=== PATIENT | female | born 1995 | race Caucasian/White ===

== ENCOUNTER 2023-08-09 11:03 | Outpatient (RCR) | payer OTHER, SELFPAY | END 2023-08-30 23:59 | LOC: NS 11:03 | PROVIDERS: Referring Provider Nurse Practitioner Family; Visit Provider Nurse Practitioner Family | DX: Z71.3 Dietary counseling and surveillance (principal); E28.2 Polycystic ovarian syndrome; E66.9 Obesity, unspecified; Z68.39 Body mass index [BMI] 39.0-39.9, adult | CPT/HCPCS: 97802 ==

== ENCOUNTER 2023-09-03 10:11 | Outpatient (RCR) | payer OTHER, SELFPAY | END 2023-09-30 23:59 | LOC: NS 10:11 | PROVIDERS: Referring Provider Nurse Practitioner Family; Visit Provider Nurse Practitioner Family | DX: Z71.3 Dietary counseling and surveillance (principal); E28.2 Polycystic ovarian syndrome; E66.9 Obesity, unspecified; Z68.39 Body mass index [BMI] 39.0-39.9, adult | CPT/HCPCS: 97803 ==

== ENCOUNTER 2023-11-08 12:52 | Outpatient (RCR) | payer OTHER, SELFPAY | END 2023-11-29 23:59 | LOC: NS 12:52 | PROVIDERS: Referring Provider Nurse Practitioner Family; Visit Provider Nurse Practitioner Family | DX: Z71.3 Dietary counseling and surveillance (principal); E28.2 Polycystic ovarian syndrome; E66.9 Obesity, unspecified; Z68.39 Body mass index [BMI] 39.0-39.9, adult | CPT/HCPCS: 97803 ==

== ENCOUNTER 2025-05-06 13:15 | Outpatient (CLI) | payer OTHER, SELFPAY ==
[2025-05-06] VITALS (17 sets, daily range): BP systolic 110–145; BP diastolic 58–96; PULSE 71–99; O2SAT 97–100; BMI 39.4
[2025-05-06 14:17] LABS: Hematocrit 35.0 % (37-47); Hemoglobin 11.7 g/dL (12.0-15.0); Mean Corp Hgb Conc 33.4 g/dL (32-36); Mean Corpuscular Volume 89.7 fL (81-99); Mean Platelet Vol. 10.7 fl (6.2-12.0); Platelet Count 279 K/mm3 (150-450); RBC Distribution Width CV 13.6 % (11.6-14.6); RBC Distribution Width SD 44.3 fl (35.1-43.9); Red Blood Count 3.90 M/mm3 (4.2-5.4); White Blood Count 11.9 K/mm3 (4.4-11.0)
[2025-05-06 14:49] LABS: AST(SGOT) 18 U/L (<=31); Alanine Aminotransfer ALT/SGPT 20 U/L (<=34); Estimated Creatinine Clearance 187.87 ml/min (50-250); Uric Acid 4.6 mg/dL (2.6-6.0)
[2025-05-06 16:27] LABS: Creatinine, Urine (random) 26.90 mg/dL (28.00-217.00); Protein, Urine (Random) 6.5 mg/dL (0.0-12.0); Protein:Creat Ratio 240 mg/g CRE (0-200)
--- NOTE | 2025-05-06 17:44 | OB.TRI.HP_ITS ---
HPI - General HPI Narrative ANAM HEALY, is a 29 F who presents to triage with elevated blood pressure at home. Patient called into office because she had bought a blood pressure cuff and BP was elevated to 143/93, 180/121. Patient reports a headache that radiates behind her eyes. RN recommended patient come to triage. PFSH PFSH Home Medications ?Medication ?Instructions ?Recorded ?Last Taken ?Type [id number] PO 05/06/25 Unknown His tory aspirin 81mg q day 05/06/25 05/05/25 History insulin NPH isoph U-100 human subcut 05/06/25 Unknown History Allergy/AdvReac Type Severity Reaction Status Date / Time amoxicillin Allergy Intermediate rash Verified 05/06/25 15:54 azithromycin (From z pack) Allergy Intermediate rash Verified 05/06/25 15:54 ROS Eyes Eyes: Denies blurry vision ENT HEENT: Reports as per HPI, headache(s), sinus pain and sinus pressure Cardiovascular Cardiovascular: Reports none; Denies chest pain at rest, chest pain with activity or dizziness Respiratory/Chest Respiratory/Chest: Denies cough or dyspnea Gastrointestinal Gastrointestinal: Reports none and other; Denies diarrhea or vomiting Genitourinary Genitourinary: Denies dysuria Musculoskeletal Musculoskeletal: Reports none Integumentary Integumentary: Reports none; Denies rash Psychiatric Psychiatric: Reports none Physical Exam Const alert and no apparent distress General Appearance: cooperative Orientation / Consciousness: awake Exam Limitations: no limitations HEENT normocephalic Eyes General Eye: normal appearance of both eyes Neck full ROM Chest inspection of chest normal Resp normal respiratory effort and normal air movement Effort and Inspection: symmetric chest movement Auscultation: clear to auscultation bilaterally Cardio regular rate GI soft to palpation, non-tender and non-distended Inspection: and other Back/Spine normal ROM Extremity full ROM, normal capillary refill and no calf tenderness Skin no rashes or lesions noted Neuro oriented x3 and CN's II-XII intact bilaterally Psych mental status grossly normal NST FHR Rate Baby A Baseline: 130 Variability:: Moderate Accelerations:: 15 x 15 Decelerations:: Variable NST Reactive:: Yes Uterine Activity:: irritability Assessment & Plan (1) Elevated blood pressure affecting , antepartum: (2) 34 weeks gestation of : (3) Headache: (4) GDM, class A2: PLAN: Plan Blood pressures stable- no severe ranges Last BP 118/71 PIH labs - normal Tylenol 1000 mg PO x 1 Benadryl 25 mg PO x 1 Headache resolved after medication CE - outer os 1cm- funnels to closed D/C home with follow up in office tomorrow for NST/BEVERLY/BP check Dr. Hoover notified and of A&P
--- NOTE | 2025-05-07 15:14 | HP.PCM_ITS ---
History and Physical Date of Admission: 05/22/25 HPI: The patient is a 28 year old female presenting for pre-operative visit. She is scheduled for , for previous c/s on 05/22/25. Procedure discussed along with risks, benefits and complications. Other alternatives discussed for management. Consent form signed? Yes. ? ? PAST MEDICAL HISTORY No past medical history on file. ? ? PAST SURGICAL HISTORY PAST SURGICAL HISTORYProcedureLateralityDate? DELIVERY ONLY?09/29/2021? [facility] & in 2022?[facility]???Pt reported 06/27/2023 ? ? ? CURRENT MEDICATIONS Current Outpatient MedicationsMedicationSigDispenseRefill?sertraline (ZOLOFT) 50 mg tabletTake 1 tablet by mouth once daily.90 tablet1?ferrous sulfate (IRON PO)Take by mouth.???ondansetron (ZOFRAN) 4 mg tabletTake 1 tablet by mouth every 8 hours as needed for nausea/vomiting.10 tablet0?MAGNESIUM ORALTake by mouth.??? Vitamin w/ Iron ( VITAMIN PLUS LOW IRON) 27 mg iron- 1 mgTake 1 tablet by mouth once daily.???No current facility-administered medications for this visit. ? ? ALLERGIES: Patient has no known allergies. ? PERSONAL HISTORY: SOCIAL HISTORY Social History?Tobacco Use?Smoking status:Never?Smokeless tobacco:NeverVaping Use?Vaping status:Never UsedSubstance Use Topics?Alcohol use:Never?Drug use:Ne vikas ? FAMILY HISTORY: FAMILY HISTORY FAMILY HISTORY ProblemRelationAge of Onset?No Known ProblemsMother??No Known ProblemsFather??No Known ProblemsSister??No Known ProblemsBrother? ? ? REVIEW OF SYMPTOMS: GENERAL: denies fevers or chills ENDOCRINOLOGY: has not been on steroids Cardiology : denies palpitations or chest pain Respiratory: denies SOB or cough Hematology: denies history of prolonged bleeding or easy bruising or VTE Allergy: Denies history of personal or family history of allergy to anesthesia ? PHYSICAL EXAMINATION: ? VITALS: Blood pressure 118/73, pulse 100, height 157.5 cm (5' 2), weight 78.9 kg (174 lb), last menstrual period 08/21/2024, SpO2 97%, not currently . ? GENERAL: The patient is well nourished, well hydrated in no acute distress. , The patient is oriented to time, place, and person. NECK: Supple. No lynphadenopathy, normal thyroid, no thyromegaly. LUNGS: Clear to auscultation bilaterally. no wheezes, rhonchi or rales HEART: Regular rate and rhythm, Normal heart sounds, and No murmurs or gallops abd- soft, nontender, gravid ? IMPRESSION: Estimated Date of Delivery: 05/28/25 h/o 2 c/s ? PLAN: The risks/benefits/alternatives and personal involved for the planned c- section were reviewed with the patient. Her questions were answered to her satisfaction and she desires to proceed. Consent was signed. I reviewed with her postop instructions and expectations. ? ? I have reviewed and updated past medical and surgical history, medications and allergies Assessment & Plan Assessment/Plan (1) Previous delivery affecting :
== END 2025-05-06 18:32 | disposition home or self-care (01) ==
LOC: WPOUT 13:25 → WP 13:25
PROVIDERS: Referring Provider Advanced Practice Midwife; Visit Provider Advanced Practice Midwife
DX: O99.891 Other specified diseases and conditions complicating pregnancy (principal); Z79.82 Long term (current) use of aspirin; Z79.01 Long term (current) use of anticoagulants; R03.0 Elevated blood-pressure reading, without diagnosis of hypertension; R51.9 Headache, unspecified; O24.419 Gestational diabetes mellitus in pregnancy, unspecified control
CPT/HCPCS: 36415; 59025; 59050; 82565; 82570; 84156; 84450; 84460; 84550; 85027; 99221; G0378

== ENCOUNTER 2025-05-14 11:05 | Outpatient (CLI) | payer OTHER, SELFPAY ==
[2025-05-14] VITALS (7 sets, daily range): BP systolic 123–143; BP diastolic 79–94; PULSE 83–93; RESP 14; TEMP 36.9; O2SAT 99; BMI 40.3
[2025-05-14 12:40] LABS: Hematocrit 34.4 % (37-47); Hemoglobin 11.5 g/dL (12.0-15.0); Mean Corp Hgb Conc 33.4 g/dL (32-36); Mean Corpuscular Volume 88.9 fL (81-99); Mean Platelet Vol. 10.6 fl (6.2-12.0); Platelet Count 265 K/mm3 (150-450); RBC Distribution Width CV 13.3 % (11.6-14.6); RBC Distribution Width SD 43.4 fl (35.1-43.9); Red Blood Count 3.87 M/mm3 (4.2-5.4); White Blood Count 9.7 K/mm3 (4.4-11.0)
[2025-05-14 12:46] LABS: Creatinine, Urine (random) 51.50 mg/dL (28.00-217.00); Protein, Urine (Random) 7.3 mg/dL (0.0-12.0); Protein:Creat Ratio 141 mg/g CRE (0-200)
[2025-05-14 13:36] LABS: AST(SGOT) 15 U/L (<=31); Alanine Aminotransfer ALT/SGPT 12 U/L (<=34); Estimated Creatinine Clearance 193.88 ml/min (50-250); Uric Acid 4.6 mg/dL (2.6-6.0)
--- NOTE | 2025-05-15 00:57 | OB.TRI.HP_ITS ---
HPI - General General Date of Admission: 05/14/25 Date of Service: 05/07/25 Chief Complaint: elevated blood pressure HPI Narrative ANAM HEALY, is a 29 F who presents with elevated blood pressure at home. No severe LINDER, visoin changes, nausea and vomiting. PFSH PFSH Home Medications ?Medication ?Instructions ?Recorded ?Last Taken ?Type [id number] PO 05/06/25 Unknown His tory aspirin 81mg q day 05/06/25 05/05/25 History insulin NPH isoph U-100 human subcut 05/06/25 Unknown History Allergy/AdvReac Type Severity Reaction Status Date / Time amoxicillin Allergy Intermediate rash Verified 05/14/25 11:51 azithromycin (From z pack) Allergy Intermediate rash Verified 05/14/25 11:51 NST FHR Rate Baby A Baseline: 130 Variability:: Moderate Accelerations:: 15 x 15 Decelerations:: None NST Reactive:: Yes FHR Category:: Category I Assessment & Plan (1) 35 weeks gestation of : (2) Gestational hypertension: PLAN: gHTN and plans delivery 37 weeks. IOL already scheduled no evidence of pre e. return precautions given
== END 2025-05-14 13:50 | disposition home or self-care (01) ==
LOC: WPOUT 11:16 → WP 11:16
PROVIDERS: Referring Provider Obstetrics & Gynecology; Visit Provider Obstetrics & Gynecology
DX: O13.3 Gestational [pregnancy-induced] hypertension without significant proteinuria, third trimester (principal); Z3A.35 35 weeks gestation of pregnancy
CPT/HCPCS: 36415; 59025; 82565; 82570; 84156; 84450; 84460; 84550; 85027; 99221; G0378

== ENCOUNTER 2025-05-24 19:08 | Inpatient (IN) | payer OTHER, SELFPAY ==
--- OUTSIDE RECORDS SUMMARY | 2025-05-24 18:55 | XMS RPT_ITS | CCD ---
Author Organization [facility] Care Team Providers Care Air Moving Technician Name Role Phone Required, No Pcp Unavailable Unavailable Henry Burger Unavailable Moon Jimenez Unavailable Unavailable None, No PCP Unavailable Unavailable Unavailable Unavailable Unavailable Primary Care Provider Unavailabl e Unavailable Primary Care Provider Unavailabl e Unavailable Primary Care Provider Unavailabl e ALEXA DUVALL Referring Unavaila ble Unavailable Primary Care Provider Unavailabl e Care Physician, No Primary Primary Care Provider Unavailable Nicolette Bobo CNM Attending Provider [phone] Nicolette Bobo CNM Referring Provider [phone] Dr. Araceli Medrano DO Attending Provider Dr. Araceli Medrano DO Referring Provider [phone] Care Physician, No Primary Primary Care Unava ilable Jihan Nicolette Referring Unavailable Nicolette Bobo Attending Unavailable Care Physician, No Primary Primary Care Unava ilable Plotts, Nicolette Referring Unavailable PlottsNicolette Attending Unavailable Plotayesha Nicolette Admitting Unavailable Care Physician, No Primary Primary Care Unava ilable Nilesh Medranoa Referring Unavailable Araceli Medrano Attending Unavailable TONY, MARLENE Referring Unavailable LAQUITA CHINCHILLA Attending Unavailable HALLUVIA, MARLENE Referring Unavailable GEORGE VIEIRA Referring Unavailable ZAHRA MUNIZ Referring Unavailable MERRY WHITE Attending Unavailable HAURY, MARLENE Attending Unavailable IRENE MC Attending Unavailable CHRISTOPHER MERRY Jennifer Referring Unavailable CHRISTOPHRE MERRY L Referring Unavailable GEORGE VIEIRA Attending Unavailable GEORGE VIEIRA Referring Unavailable MERRY WHITE Attending Unavailable HAURY, MARLENE Referring Unavailable HAURY, MARLENE Attending Unavailable DARIEL GEORGE Attending Unavailable PORTER, ZAHRA Referring Unavailable CHRISTOPHERMERRY Referring Unavailable PORTER, ZAHRA Attending Unavailable PORTER, ZAHRA Referring Unavailable ENRIQUEZ, AMY Attending Unavailable PORTER, ZAHRA Referring Unavailable PORTER, ZAHRA Referring Unavailable HAURY, MARLENE Referring Unavailable PLOTTS, NICOLETTE Attending Unavailable PORTER, ZAHRA Referring Unavailable HAURY, MARLENE Referring Unavailable PLOTTS, NICOLETTE Referring Unavailable PLOTTS, NICOLETTE Referring Unavailable PLOTTS, NICOLETTE Referring Unavailable MCIRENE Attending Unavailable PORTER, ZAHRA Attending Unavailable HAURY, MARLENE Referring Unavailable PORTER, ZAHRA Attending Unavailable PORTER, ZAHRA Referring Unavailable HAURY, MARLENE Referring Unavailable CHRISTOPHER, MERRY L Attending Unavailable HAURY, MARLENE Referring Unavailable CHRISTOPHER, MERRY L Attending Unavailable HAURY, MARLENE Attending Unavailable DARIEL, KARMON Referring Unavailable DARIEL, KARMON Attending Unavailable HAURY, MARLENE Attending Unavailable Allergies Allergy Classification Reported Allergen(s) Allergy Type Date of Onset Reaction(s) Facility (20 sources) Amoxicillin; Translations: [Amoxicillin CAPS] Drug Allergy 01-09-2017 [facility] Other Phone (unformatted): [phone] (1 source) Azithromycin Drug Allergy Unknown [facility] Other Phone (unformatted): [phone] (20 sources) Azithromycin; Translations: [azithromycin] Drug Allergy 01-09-2017 [facility] (1 source) Amoxicillin Drug Allergy 05-14-2025 [facility] Repository (1 source) Azithromycin Drug Allergy 05-14-2025 [facility] Repository Medications Current Medications Medication Drug Class(es) Dates Sig (Normalized) Sig (Original) Aspirin (20 sources) Platelet Aggregation Inhibitor, Nonsteroidal Anti-inflammatory Drug Start: 05-06-2025 aspirin 81mg q day 81 mg tablet Active May 06, 2025 12:00am Start: 10-31-2024 take 1 tablet by bree th once daily aspirin, enteric coated (ECOTRIN LOW STRENGTH) 81 mg EC tablet Indications: Encounter for supervision of high risk in first trimester, antepartum (HCC) Take 1 tablet by mouth once daily. 90 tablet 3 10/31/2024 Active Blood-Glucose Meter (1 source) Start: 03-27-2025 End: 03-28-2025 Blood-Glucose Meter Indications: Diet controlled gestational diabetes mellitus (GDM) in third trimester (HCC) Use as directed to check glucose levels up to seven times daily. 1 each 03/27/2025 03/28/2025 Active drospirenone (2 sources) Progestin take 1 tablet by mouth once daily drospirenone (SLYND ORAL) Take 1 tablet by mouth once daily. Active famotidine 20 mg oral tablet (20 sources) Histamine-2 Receptor Antagonist Start: 12-03-2024 take 1 tablet by mouth twice daily famotidine (PEPCID) 20 mg tablet Take 1 tablet by mouth two times a day. 60 tablet 1 12/03/2024 Active ferrous sulfate 325 mg delayed release oral tablet (8 sources) ferrous sulfate 325 mg (65 mg iron) EC tablet Take 325 mg by mouth. Active Folic Acid (6 sources) End: 02-25-2025 FOLIC ACID ORAL Take by mouth. 02/25/2025 Discontinued FOLIC ACID ORAL Take by mouth. Active 3 ml insulin isophane, human 100 unt/ml pen injector (12 sources) Start: 04-21-2025 End: 07-20-2025 inject 10 [IU] by subcutaneous injection once daily at bedtime insulin NPH subcutaneous pen Inject 10 Units subcutaneously daily at bedtime. 3 mL 2 04/21/2025 07/20/2025 Active insulin NPH isoph U-100 human (2 sources) Start: 05-06-2025 insulin NPH is oph U-100 human Active SC May 06, 2025 12:00am isopropyl alcohol 0.7 ml/ml medicated pad (20 sources) Start: 03-27-2025 alcohol swabs (ALCOHOL PREP PADS) Indications: Diet controlled gestational diabetes mellitus (GDM) in third trimester (HCC) Use as directed to check glucose levels up to seven times daily. 200 each 8 03/27/2025 Active magnesium oxide 420 mg oral tablet (11 sources) Start: 10-24-2024 End: 12-31-2024 take 1 tablet by mouth once daily Magnesium Oxide 420 mg tab Take 1 tablet by mouth once daily. 100 tablet 3 10/24/2024 12/31/2024 Discontinued (Other) metFORMIN hydrochloride 1000 mg oral tablet (20 sources) Biguanide Start: 08-18-2023 End: 10-28-2025 take 39-39.9 tablets by mouth twice daily metFORMIN (GLUCOPHAGE) 1,000 mg tablet Indications: PCOS (polycystic ovarian syndrome) , Class 2 obesity with body mass index (BMI) of 39.0 to 39.9 in adult, unspecified obesity type, unspecified whether serious comorbidity present Take 1 tablet by mouth two times a day with meals. 180 tablet 2 12/11/2023 12/10/2024 Active Start: 07-11-2023 End: 11-07-2023 take 39-39.9 tablets by mouth twice daily metFORMIN (GLUCOPHAGE) 500 mg tablet Indications: PCOS (polycystic ovarian syndrome) , Class 2 obesity with body mass index (BMI) of 39.0 to 39.9 in adult, unspecified obesity type, unspecified whether serious comorbidity present Take 2 tablets by mouth two times a day with meals. 120 tablet 2 07/31/2023 08/09/2023 Discontinued Comment on above: Take 1 tablet by bree th two times a day with meals. Take 2 tablets by mo uth two times a day with meals. phentermine hydrochloride 37.5 mg oral tablet (20 sources) Sympathomimetic Amine Anorectic Start: 05-14-20 End: 12-18-19 take 39-39.9 tablets by mouth once daily Phentermine HCl 37.5 mg tablet Indications: PCOS (polycystic ovarian syndrome) , Elevated LDL cholesterol level , Class 2 obesity with body mass index (BMI) of 39.0 to 39.9 in adult, unspecified obesity type, unspecified whether serious comorbidity present Take 1 tablet by mouth daily before breakfast for 90 days. 90 tablet 09/18/2024 12/17/2024 Active Start: 11-08-2023 End: 05-06-2024 take 39-39.9 tablets by mouth once daily Phentermine HCl 37.5 mg tablet Indications: PCOS (polycystic ovarian syndrome) , Elevated LDL cholesterol level , Class 2 obesity with body mass index (BMI) of 39.0 to 39.9 in adult, unspecified obesity type, unspecified whether serious comorbidity present Take 1 tablet by mouth daily before breakfast for 90 days. 90 tablet 0 02/06/2024 05/06/2024 Active Start: 08-09-2023 End: 11-07-2023 take 39-39.9 capsules by mouth once daily Phentermine HCl 15 mg capsule Indications: Class 2 obesity with body mass index (BMI) of 39.0 to 39.9 in adult, unspecified obesity type, unspecified whether serious comorbidity present Take 1 capsule by mouth daily before breakfast for 90 days. 30 capsule 2 08/09/2023 11/07/2023 Active End: 06-19-2024 Phentermine HCl 37.5 mg caps ule Take 37.5 mg by mouth. 06/19/2024 Discontinued Comment on above: Take 1 capsule by mo [facility] daily before breakfast for 90 days. Take 1 tablet by bree daily before breakfast for 90 days. [id number] pa-fish (2 sources) Start: 05-06-2025 [id number] epa-fish Active PO May 06, 2025 12:00am no115/iron/folic acid ( 19 ORAL) (20 sources) no115/iron/folic acid ( 19 ORAL) Take by mouth. Active take 1 tablet by mouth once bety y no115/iron/folic acid ( 19 ORAL) Take 1 tablet by mouth once daily. Active topiramate 25 mg oral tablet (14 sources) Start: 11-08-2023 End: 08-04-2024 take 39-39.9 tablets by mouth twice daily topiramate (TOPAMAX) 25 mg tablet Indications: PCOS (polycystic ovarian syndrome) , Elevated LDL cholesterol level , Ocular migraine , Class 2 obesity with body mass index (BMI) of 39.0 to 39.9 in adult, unspecified obesity type, unspecified whether serious comorbidity present Take 1 tablet by mouth two times a day. 180 tablet 1 02/06/2024 08/04/2024 Active Comment on above: Take 1 tablet by bree two times a day. vitamin b6 50 mg oral tablet (11 sources) Start: 10-24-2024 End: 12-31-2024 take 1 tablet by mouth twice daily pyridoxine, vitamin B6, (VITAMIN B-6) 50 mg tablet Take 1 tablet by mouth two times a day. 100 tablet 2 10/24/2024 12/31/2024 Discontinued (Other) vitamin D3/vitamin K2, MK4, (K2 PLUS D3 ORAL) (2 sources) take 1 tablet by mouth once daily vitamin D3/vitamin K2, MK4, (K2 PLUS D3 ORAL) Take 1 tablet by mouth once daily. Active Completed/Discontinued Medications Medication Drug Class(es) Dates Sig (Normalized) Sig (Original) benzocaine 15 mg / menthol 2.6 mg oral lozenge (15 sources) Standardized Chemical Allergen Start: 01-03-2019 End: 03-18-2024 benzocaine-menthol (CEPACOL) 15-2.6 mg lozg lozenge Indications: URI, acute Take 1 Lozenge by mouth every 2 hours as needed. 18 Lozenge 1 01/03/2019 03/18/2024 Discontinued Comment on above: Take 1 Lozenge by [facility] every 2 hours as needed. cephalexin 500 mg oral capsule (7 sources) Cephalosporin Antibacterial Start: 03-28-2024 End: 03-28-2024 take 500 mg by mouth once 500 mg, oral, Once, On Sun03/28/24 at 2215, For 1 dose, Suspected Indication (Select all that apply): Urinary Tract Infection, Type of Therapy: Empiric, Type of Urinary Tract Infection: Uncomplicated, Indications: Urinary Tract Infection Start: 12-18-2013 End: 04-07-2024 take 1 capsule by mouth three times daily cephalexin (Keflex) 500 mg capsule Indications: Acute cystitis with hematuria Take 1 capsule (500 mg) by mouth 3 times a day for 10 days. 30 capsule 03/28/2024 04/07/2024 Active Start: 12-18-2013 take 2 capsules by m outh twice daily Cephalexin 500 MG Oral Capsule TAKE 2 CAPSULES TWICE DAILY UNTIL GONE. Quantity: 40 Refills: 0 Ordered: 24-Aug-2015 Philip Roe MD Start : 18-Dec-2013 Active drospirenone, contraceptive, (SLYND) 4 mg (28) tabet (11 sources) Start: 03-18-2024 End: 10-16-2024 take 1 tablet by mouth once daily drospirenone, contraceptive, (SLYND) 4 mg (28) tabet Take 1 tablet by mouth once daily. 30 tablet 03/18/2024 10/16/2024 Discontinued Start: 03-18-2024 End: 02-17-2025 take 1 tablet by mouth once daily drospirenone, contraceptive, (SLYND) 4 mg (28) tabet Take 1 tablet by mouth once daily. 30 tablet 03/18/2024 02/17/2025 Active fluticasone propionate 0.05 mg/actuat metered dose nasal spray (15 sources) Corticosteroid Start: 01-03-2019 End: 03-18-2024 take 1 spray(s) nasal route once daily fluticasone (FLONASE ALLERGY RELIEF) 50 mcg/actuation nasal spray Indications: URI, acute Use 1 [place] in each nostril once daily. 1 Bottle 0 01/03/2019 03/18/2024 Discontinued Comment on above: Use 1 [place] in each nostril once daily. 12 hr guaiFENesin 600 mg extended release oral tablet (15 sources) Start: 01-03-2019 End: 03-18-2024 take 2 tablets by mouth twice daily guaiFENesin (MUCINEX) 600 mg 12 hr tablet Indications: URI, acute Take 2 tablets by mouth twice daily. 30 tablet 1 01/03/2019 03/18/2024 Discontinued Comment on above: Take 2 tablets by [facility] twice daily. 8 ml methotrexate 25 mg/ml injection (3 sources) Folate Analog Metabolic Inhibitor Start: 04-02-2024 End: 04-02-2024 methotrexate (PF) 98 mg injection norethindrone 0.35 mg oral tablet (7 sources) Start: 11-08-2023 End: 01-01-2025 take 39-39.9 tablets by mouth once daily Norethindrone, Contraceptive, 0.35 mg tablet Indications: PCOS (polycystic ovarian syndrome) , Ocular migraine , Encounter for BCP ( control pills) initial prescription , Class 2 obesity with body mass index (BMI) of 39.0 to 39.9 in adult, unspecified obesity type, unspecified whether serious comorbidity present Take 1 tablet by mouth once daily. 84 tablet 4 11/08/2023 03/18/2024 Discontinued (Course of therapy completed) Comment on above: Take 1 tablet by [facility] once daily. omeprazole 40 mg delayed release oral capsule (15 sources) Proton Pump Inhibitor Start: 09-25-2017 End: 03-18-2024 take 1 capsule by mouth once daily Omeprazole 40 mg capsule Indications: GERD without esophagitis Take 1 capsule by mouth once daily. 30 capsule 0 09/25/2017 03/18/2024 Discontinued Comment on above: Take 1 capsule by mo [facility] once daily. pseudoephedrine hydrochloride 30 mg oral tablet (8 sources) alpha-Adrenergic Agonist Start: 01-03-2019 End: 08-09-2023 take 1 tablet by mouth every four hours as needed pseudoephedrine (SUDAFED) 30 mg tablet Indications: URI, acute Take 1 tablet by mouth every 4 hours as needed. 30 tablet 0 01/03/2019 08/09/2023 Discontinued Comment on above: Take 1 tablet by bree th every 4 hours as needed. 1000 ml sodium chloride 9 mg/ml injection (16 sources) Start: 03-28-2024 End: 03-28-2024 1,000 mL, intravenous, at 999 mL/hr, Administer over 1 Hours, Once, On Sun03/28/24 at 1900, For 1 dose Start: 01-03-2019 End: 03-18-2024 sodium chloride (AYR SALINE) 0.65 % drop Indications: URI, acute Use 1 Drop in the nose every 2 hours as needed. 50 mL 1 01/03/2019 03/18/2024 Discontinued Comment on above: Use 1 Drop in the no se every 2 hours as needed. Problems Active Problems Problem Classification Problem Date Documented Da te Episodic/Chronic Abdominal pain (1 source) Unspecified abdominal pain; Translations: [Cramping affecting , antepartum (HCC)] Onset: 05-07-2025 Episodic Conditions associated with dizziness or vertigo (2 sources) Dizziness; Translations: [Dizziness and giddiness] Onset: 03-18-2025 03-18-2025 Episodic Diabetes mellitus without complication (20 sources) Increased glucose level; Translations: [Other abnormal glucose] Onset: 03-26-2025 03-26-2025 Episodic Diabetes or abnormal glucose tolerance complicating ; childbirth; or the puerperium (20 sources) Gestational diabetes mellitus; Translations: [Gestational diabetes mellitus in , diet controlled] Onset: 03-27-2025 03-27-2025 Episodic Disorders of lipid metabolism (20 sources) Raised low density lipoprotein cholesterol; Translations: [Pure hypercholesterolemi a, unspecified] Onset: 05-06-2024 07-11-2023 Chronic Ectopic (3 sources) Ectopic ; Translations: [Unspecified ectopic without intrauterine ] 04-01-2024 Episodic Female infertility (1 source) Female infertility; Translations: [Female infertility, unspecified] Chronic Fluid and electrolyte disorders (20 sources) Hypokalemia; Translations: [Hypokalemia] Onset: 03-26-2025 03-26-2025 Episodic Headache; including migraine (20 sources) Ophthalmic migraine; 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 with aura, not intractable, without status migrainosus] Onset: 05-06-2024 02-04-2024 Chronic Headache; including migraine (4 sources) Headache; Translations: [Headache] 05-06-2025 Episodic Hemorrhage during ; abruptio placenta; placenta previa (5 sources) Antepartum hemorrhage; Translations: [Unspecified hemorrhage in early , unspecified as to episode of care or not applicable] Onset: 03-28-2024 08-09-2021 Episodic Hypertension complicating ; childbirth and the puerperium (4 sources) Hypertension complicating ; Translations: [Unspecified maternal hypertension, unspecified trimester] 05-06-2025 Chronic Hypertension complicating ; childbirth and the puerperium (20 sources) -induced hypertension; Translations: [Gestational [-induced] hypertension without significant proteinuria, third trimester] Onset: 05-07-2025 Resolved: 05-07-2025 05-12-2025 Episodic Immunizations and screening for infectious disease (3 sources) Vaccination needed; Translations: [Encounter for immunization] Onset: 03-25-2025 03-25-2025 Episodic Malaise and fatigue (1 source) Malaise and fatigue; Translations: [Other malaise] 07-11-2023 Episodic Menstrual disorders (2 sources) Irregular periods; Translations: [Irregular menstruation, unspecified] Chronic Nutritional deficiencies (20 sources) Vitamin D deficiency; Translations: [Vitamin D deficiency, unspecified] Onset: 05-06-2024 05-06-2024 Chronic Other complications of (20 sources) Maternal obesity complicating , childbirth and the puerperium, antepartum; Translations: [Obesity complicating , first trimester] Onset: 10-31-2024 10-31-2024 Chronic Other complications of (6 sources) Obesity complicating , third trimester; Translations: [Obesity complicating , childbirth, or the puerperium, antepartum condition or complication] Onset: 04-07-2025 05-15-2025 Chronic Other complications of (1 source) Obesity complicating , second trimester; Translations: [Obesity affecting in second trimester, unspecified obesity type (HCC)] Onset: 01-28-2025 Chronic Other complications of (1 source) Spotting per vagina in ; Translations: [Spotting complicating , unspecified trimester] 10-15-2024 Episodic Other complications of (1 source) Morning sickness; Translations: [Other specified related conditions, unspecified trimester] 10-24-2024 Episodic Other complications of (20 sources) High risk ; Translations: [Supervision of high risk , unspecified, first trimester] Onset: 10-31-2024 10-31-2024 Episodic Other complications of (2 sources) Excessive weight gain in , second trimester; Translations: [Edema or excessive weight gain in , without mention of hypertension, antepartum condition or complication] Onset: 02-25-2025 02-25-2025 Episodic Other complications of (1 source) Uterine contractions problem; Translations: [Other specified related conditions, unspecified trimester] 04-27-2025 Episodic Other complications of (1 source) Suspected macroscopic fetus; Translations: [Maternal care for excessive growth, third trimester, not applicable or unspecified] 05-15-2025 Episodic Other complications of (1 source) Supervision of high risk due to social problems, third trimester; Translations: [Supervision of high risk due to social problems, third trimester (HCC)] Onset: 05-19-2025 Episodic Other complications of (1 source) Supervision of other high risk pregnancies, third trimester; Translations: [Supervision of other high risk pregnancies, third trimester (HCC)] Onset: 05-19-2025 Episodic Other complications of (1 source) Other malformation of placenta, third trimester; Translations: [Marginal insertion of umbilical cord affecting management of mother in third trimester ([facility])] Onset: 05-19-2025 Episodic Other complications of (1 source) Supervision of high risk , unspecified, third trimester; Translations: [Supervision of high risk in third trimester ([facility])] Onset: 05-07-2025 Episodic Other complications of (1 source) Other specified related conditions, unspecified trimester; Translations: [Cramping affecting , antepartum ([facility])] Onset: 05-07-2025 Episodic Other endocrine disorders (20 sources) Polycystic ovary syndrome; Translations: [Polycystic ovarian syndrome] Onset: 05-06-2024 Chronic Other endocrine disorders (1 source) Polycystic ovarian syndrome; Translations: [PCOS (polycystic ovarian syndrome)] Onset: 05-06-2024 Chronic Other female genital disorders (2 sources) Abnormal uterine bleeding; Translations: [Other specified abnormal uterine and vaginal bleeding] Chronic Other nutritional; endocrine; and metabolic disorders (2 sources) Severe obesity; Translations: [Morbid (severe) obesity due to excess calories] Chronic Other nutritional; endocrine; and metabolic disorders (19 sources) Obesity; Translations: [Obesity, unspecified] Onset: 05-06-2024 07-11-2023 Chronic Other nutritional; endocrine; and metabolic disorders (1 source) Obesity, unspecified; Translations: [Class 2 obesity with body mass index (BMI) of 39.0 to 39.9 in adult, unspecified obesity type, unspecified whether serious comorbidity present] Onset: 05-06-2024 Chronic Other nutritional; endocrine; and metabolic disorders (1 source) Body mass index (BMI) 39.0-39.9, adult; Translations: [Class 2 obesity with body mass index (BMI) of 39.0 to 39.9 in adult, unspecified obesity type, unspecified whether serious comorbidity present] Onset: 05-06-2024 Chronic Other nutritional; endocrine; and metabolic disorders (1 source) H/O: nutritional disorder; Translations: [Personal history of other endocrine, nutritional and metabolic disease] 07-11-2023 Episodic Other screening for suspected conditions (not mental disorders or infectious disease) (11 sources) Patient encounter status; Translations: [Encounter for screening for diabetes mellitus] Onset: 01-28-2025 07-11-2023 Episodic Other upper respiratory infections (1 source) Sinusitis; Translations: [Unspecified sinusitis (chronic)] Chronic Other upper respiratory infections (1 source) Sore throat symptom; Translations: [Acute pharyngitis] Episodic Residual codes; unclassified (1 source) Insomnia; Translations: [Insomnia, unspecified] 10-24-2024 Episodic Residual codes; unclassified (1 source) Gestation period, 7 weeks; Translations: [Less than 8 weeks gestation of ] 10-31-2024 Episodic Residual codes; unclassified (2 sources) Gestation period, 12 weeks; Translations: [12 weeks gestation of ] 12-03-2024 Episodic Residual codes; unclassified (1 source) FH: Congenital anomaly; Translations: [Family history of other congenital malformations, deformations and chromosomal abnormalities] 12-28-2024 Episodic Residual codes; unclassified (1 source) Gestation period, 16 weeks; Translations: [16 weeks gestation of ] 12-31-2024 Episodic Residual codes; unclassified (2 sources) Gestation period, 20 weeks; Translations: [20 weeks gestation of ] 01-28-2025 Episodic Residual codes; unclassified (2 sources) Gestation period, 24 weeks; Translations: [24 weeks gestation of ] 02-25-2025 Episodic Residual codes; unclassified (1 source) Gestation period, 27 weeks; Translations: [27 weeks gestation of ] 03-23-2025 Episodic Residual codes; unclassified (1 source) Gestation period, 28 weeks; Translations: [28 weeks gestation of ] 03-25-2025 Episodic Residual codes; unclassified (2 sources) Gestation period, 30 weeks; Translations: [30 weeks gestation of ] 04-07-2025 Episodic Residual codes; unclassified (1 source) Gestation period, 32 weeks; Translations: [32 weeks gestation of ] 04-21-2025 Episodic Residual codes; unclassified (1 source) Gestation period, 33 weeks; Translations: [33 weeks gestation of ] 04-27-2025 Episodic Residual codes; unclassified (4 sources) Gestation period, 34 weeks; Translations: [34 weeks gestation of ] 05-06-2025 Episodic Residual codes; unclassified (3 sources) Gestation period, 35 weeks; Translations: [35 weeks gestation of ] 05-12-2025 Episodic Residual codes; unclassified (3 sources) Gestation period, 36 weeks; Translations: [36 weeks gestation of ] 05-19-2025 Episodic Residual codes; unclassified (1 source) 36 weeks gestation of ; Translations: [36 weeks gestation of (HCC)] Onset: 05-19-2025 Episodic Residual codes; unclassified (1 source) 35 weeks gestation of ; Translations: [35 weeks gestation of (HCC)] Onset: 05-12-2025 Episodic Residual codes; unclassified (1 source) 34 weeks gestation of ; Translations: [34 weeks gestation of (HCC)] Onset: 05-07-2025 Episodic Residual codes; unclassified (1 source) 33 weeks gestation of ; Translations: [33 weeks gestation of (HCC)] Onset: 04-27-2025 Episodic Residual codes; unclassified (1 source) 32 weeks gestation of ; Translations: [32 weeks gestation of ([facility])] Onset: 04-21-2025 Episodic Residual codes; unclassified (1 source) 30 weeks gestation of ; Translations: [30 weeks gestation of (HCC)] Onset: 04-07-2025 Episodic Residual codes; unclassified (1 source) 28 weeks gestation of ; Translations: [28 weeks gestation of ([facility])] Onset: 03-25-2025 Episodic Residual codes; unclassified (1 source) 27 weeks gestation of ; Translations: [27 weeks gestation of ([facility])] Onset: 03-18-2025 Episodic Residual codes; unclassified (1 source) 24 weeks gestation of ; Translations: [24 weeks gestation of ([facility])] Onset: 02-25-2025 Episodic Syncope (1 source) Vasovagal symptom; Translations: [Syncope and collapse] Episodic Unclassified (2 sources) CRAMPING AND BLEEDING PT IS 5 1/2 WK PRGNANT 08-09-2021 Comment on above: CRAMPING AND BLEEDIN G PT IS 5 1/2 WK PRGNANT Unclassified (1 source) NEW OB LMP 10/3 08-02-2021 Comment on above: NEW OB LMP 10/3 Unclassified (1 source) Bleeding in early 08-09-2021 Unclassified (20 sources) [facility] Education - COMMON Onset: 10-30-2024 10-30-2024 Unclassified (1 source) Other specified diseases and conditions complicating ; Translations: [Other specified diseases and conditions complicating ] Onset: 05-12-2025 Unclassified (1 source) Other obesity affecting in third trimester ([facility]); Translations: [Other obesity affecting in third trimester ([facility])] Onset: 04-07-2025 Unclassified (1 source) Rubella non-immune status, antepartum ([facility]); Translations: [Rubella non-immune status, antepartum ([facility])] Onset: 11-19-2024 Unclassified (1 source) Initial OB Visit Onset: 10-31-2024 Urinary tract infections (3 sources) Acute cystitis with hematuria; Translations: [Acute cystitis] Onset: 03-28-2024 Episodic Past or Other Problems Problem Classification Problem Date Documented Date Episodic/Chronic Contraceptive and procreative management (4 sources) Social and personal history finding; Translations: [Encounter for procreative management, unspecified] Onset: 11-28-2024 Episodic Other complications of (20 sources) Heartburn; Translations: [Other specified related conditions, first trimester] Onset: 10-31-2024 10-31-2024 Episodic Other complications of (20 sources) Rubella non-immune; Translations: [Supervision of other high risk pregnancies, unspecified trimester] Onset: 11-19-2024 11-19-2024 Episodic Other complications of (20 sources) Abnormal placenta affecting management of mother; Translations: [Other malformation of placenta, unspecified trimester] Onset: 01-28-2025 01-28-2025 Episodic Other complications of (1 source) Supervision of high risk , unspecified, second trimester; Translations: [Supervision of high risk in second trimester (HCC)] Onset: 01-28-2025 Episodic Other complications of (1 source) Other malformation of placenta, unspecified trimester; Translations: [Marginal insertion of umbilical cord affecting management of mother (HCC)] Onset: 01-28-2025 Episodic Other complications of (1 source) Supervision of other high risk pregnancies, unspecified trimester; Translations: [Rubella non-immune status, antepartum (HCC)] Onset: 11-19-2024 Episodic Other complications of (1 source) Spotting complicating , unspecified trimester; Translations: [Spotting in early ] Onset: 11-17-2024 Episodic Other complications of (1 source) Supervision of high risk , unspecified, first trimester; Translations: [Encounter for supervision of high risk in first trimester, antepartum] Onset: 10-31-2024 Episodic Other and delivery including normal (3 sources) with uncertain dates; Translations: [Encounter for supervision of normal , unspecified, first trimester] Onset: 10-16-2024 10-16-2024 Episodic Residual codes; unclassified (20 sources) H/O: ectopic ; Translations: [Personal history of other complications of , childbirth and the puerperium] Onset: 10-31-2024 10-02-2024 Episodic Residual codes; unclassified (20 sources) Family history of hereditary disease; Translations: [Family history of other specified conditions] Onset: 10-31-2024 10-31-2024 Episodic Residual codes; unclassified (1 source) 20 weeks gestation of ; Translations: [20 weeks gestation of (HCC)] Onset: 01-28-2025 Episodic Residual codes; unclassified (1 source) Family history of other congenital malformations, deformations and chromosomal abnormalities; Translations: [Family history of defect] Onset: 11-28-2024 Episodic Residual codes; unclassified (1 source) Less than 8 weeks gestation of ; Translations: [7 weeks gestation of ] Onset: 11-17-2024 Episodic Residual codes; unclassified (1 source) Personal history of other complications of , childbirth and the puerperium; Translations: [Hx of ectopic ] Onset: 10-03-2024 Episodic Screening and history of mental health and substance abuse codes (20 sources) Tobacco use and exposure - finding; Translations: [Personal history of nicotine dependence] Onset: 10-31-2024 10-31-2024 Episodic Results Test Name Value Interpretation Reference Range Facility URINE OB DIP B/Oon 5 Glucose Ql (U) Negative Neg mg/dL [facility] Interpretation and review of laboratory results Normal [facility] Protein.monoclonal (U) [Mass/Vol] Negative Neg mg/dL [facility] Examination level ultrasound on 05-19-2025 [facility] Radiology Study observation (narrative) [facility] URINE OB DIP B/Oon 5 Glucose Ql (U) Negative Neg mg/dL [facility] Interpretation and review of laboratory results Normal [facility] Protein.monoclonal (U) [Mass/Vol] Negative Neg mg/dL [facility] Examination level ultrasound on 05-15-2025 [facility] Radiology Study observation (narrative) [facility] OB Triage Physician Noteon 0 05-15-2025 OB Triage Physician Note [facility] Medical Records Department [address] [place] [address] OB Triage Physician Note 05/15/257 MR#: [id number] Acct: [id number] Name: MILLIE WATKINS Rep #: [id number] : 1995 29 From: Araceli Medrano DO PCP: Care Physician,No Primary Status:DEP CLI Y Location: [facility] HPI - General General Date of Admission: 05/14/25 Date of Service: 05/07/25 Chief Complaint: elevated blood pressure HPI Narrative MILLIE WATKINS, is a 29 F who presents with elevated blood pressure at home. No severe LINDER, visoin changes, nausea and vomiting. PFSH PFSH Home Medications ???Medication ???Instructions ???Recorded ???Last Taken ???Type [id number] -[id number]-fish PO 05/06/25 Unknown History aspirin 81mg q day 05/06/25 05/05/25 History insulin NPH isoph U-100 human subcut 05/06/25 Unknown History Allergy/AdvReac Type Severity Reaction Status Date / Time amoxicillin Allergy Intermediate rash Verified 05/14/25 11:51 azithromycin (From z pack) Allergy Intermediate rash Verified 05/14/25 11:51 NST FHR Rate Baby A Baseline: 130 Variability:: Moderate Accelerations:: 15 x 15 Decelerations:: None NST Reactive:: Yes FHR Category:: Category I Assessment Plan (1) 35 weeks gestation of : (2) Gestational hypertension: PLAN: gHTN and plans delivery 37 weeks. IOL already scheduled no evidence of pre e. return precautions given 05/15/259 Date Araceli Medrano DO Cosigner Signature (if applicable): Date CC: Dr. Araceli Medrano, DO; No Primary Care Physician Signed Normal [facility] URINE OB DIP B/Oon 5 Glucose Ql (U) Negative Neg mg/dL [facility] Interpretation and review of laboratory results Normal [facility] Protein.monoclonal (U) [Mass/Vol] Negative Neg mg/dL [facility] AST(SGOT)on 05-14-2025 AST [Catalytic activity/Vol] 15 U/L Normal <=31 [facility] Comment on above: Performed By: #### L 100.0500, L501.4100, L501.4405, L501.0900, L501.1105, L501.1400 #### [facility] [address] [place], [address] Alanine Aminotransferas (SGP T)on 05-14-2025 ALT [Catalytic activity/Vol] 12 U/L Normal <=34 [facility] Comment on above: Performed By: #### L 100.0500, L501.4100, L501.4405, L501.0900, L501.1105, L501.1400 #### [facility] [address] [place], [address] CBC-Complete Blood Cnt No Di ffon 05-14-2025 Erythrocyte distribution width (RBC) [Ratio] 13.3 % Normal 11.6-14.6 [facility] Comment on above: Performed By: #### L 100.0500, L501.4100, L501.4405, L501.0900, L501.1105, L501.1400 #### [facility] [address] [place], [address] Hematocrit (Bld) [Volume fraction] 34.4 % Low 37-47 [facility] Comment on above: Performed By: #### L 100.0500, L501.4100, L501.4405, L501.0900, L501.1105, L501.1400 #### [facility] [address] [place], [address] Hemoglobin (Bld) [Mass/Vol] 11.5 g/dL Low 12.0-15.0 [facility] Comment on above: Performed By: #### L 100.0500, L501.4100, L501.4405, L501.0900, L501.1105, L501.1400 #### [facility] [address] [place] [address] [place], [address] MCH (RBC) [Entitic mass] 29.7 pg Normal 27.0-32.0 [facility] Comment on above: Performed By: #### L 100.0500, L501.4100, L501.4405, L501.0900, L501.1105, L501.1400 #### [facility] [address] [place], [address] MCHC (RBC) [Mass/Vol] 33.4 g/dL Normal 32-36 [facility] Comment on above: Performed By: #### L 100.0500, L501.4100, L501.4405, L501.0900, L501.1105, L501.1400 #### [facility] [address] [place], [address] MCV (RBC) [Entitic vol] 88.9 fL Normal 81-99 [facility] Comment on above: Performed By: #### L 100.0500, L501.4100, L501.4405, L501.0900, L501.1105, L501.1400 #### [facility] [address] [place], [address] Platelet mean volume (Bld) [Entitic vol] 10.6 fL Normal 6.2-12.0 [facility] Comment on above: Performed By: #### L 100.0500, L501.4100, L501.4405, L501.0900, L501.1105, L501.1400 #### [facility] [address] [place], [address] Platelets (Bld) [#/Vol] 265 10*3/uL Normal 150-450 [facility] Comment on above: Performed By: #### L 100.0500, L501.4100, L501.4405, L501.0900, L501.1105, L501.1400 #### [facility] [address] [place], [address] RBC (Bld) [#/Vol] 3.87 10*6/uL Low 4.2-5.4 [facility] Comment on above: Performed By: #### L 100.0500, L501.4100, L501.4405, L501.0900, L501.1105, L501.1400 #### [facility] [address] [place], [address] RDW SD 43.4 fl Normal 35.1-43.9 [facility] Comment on above: Performed By: #### L 100.0500, L501.4100, L501.4405, L501.0900, L501.1105, L501.1400 #### [facility] [address] [place], [address] WBC (Bld) [#/Vol] 9.7 10*3/uL Normal 4.4-11.0 [facility] Comment on above: Performed By: #### L 100.0500, L501.4100, L501.4405, L501.0900, L501.1105, L501.1400 #### [facility] [address] [place], [address] Rocio 05-14-2025 CNPN Telephone (OBGYWM) MILLIE WATKINS ([id number]) 1995 F Date Time Provider Department 05/14/25 GEORGE VIEIRAGYWM During your visit today, we recorded the following information about you: Zahra Baez RN 05/14/2025 9:16 AM Signed 35w4d Patient called to report the following BPs 130/100, 134/96, and 146/95 Has a LINDER, but she considers it mild with her hx of migraines. No RUQ pain or vision changes. Should we send patient over to [facility] with SW at the hospital and no openings in office this morning? Patient prefers to come here and not the hospital. JOHN Bañuelos Karmon, MD 05/14/2025 9:23 AM Signed I recommend [facility] for complete evaluation. MD Sasha Erwin Jennifer, RN 05/14/2025 9:32 AM Signed Patient called and notified. [facility] notified. Updated [facility] faxed. Zahra Baez RN Allergies As of Date: 05/14/2025 Noted Allergy Reaction AMOXICILLIN 01/09/2017 2 - Rash ZYTHROMAX (AZITHROMYCIN) 01/09/2017 2 - Rash Date Reviewed: 05/12/2025 Reviewed by: Devika Peacock MA - Fully Assessed Reason for Visit: OB Elevated BP [Other] Prescriptions as of 05/14/2025 - insulin needles, DISPOSABLE, (PEN NEEDLE) 31 gauge x 5/16 1 each two times a day. - insulin NPH subcutaneous pen Inject 10 Units subcutaneously daily at bedtime. - blood sugar diagnostic test strip Use as directed to check glucose levels up to seven times daily. - Lancets Use as directed to check glucose levels up to seven times daily. - alcohol swabs (ALCOHOL PREP PADS) Use as directed to check glucose levels up to seven times daily. - famotidine (PEPCID) 20 mg tablet Take 1 tablet by mouth two times a day. - aspirin, enteric coated (ECOTRIN LOW STRENGTH) 81 mg EC tablet Take 1 tablet by mouth once daily. - no115/iron/folic acid ( 19 ORAL) Take by mouth. Problem List As Of Date 05/14/2025 Noted Resolved PCOS (polycystic ovarian syndrome) [E28.2] 05/06/2024 Elevated LDL cholesterol level [E78.00] 05/06/2024 Vitamin D deficiency [E55.9] 05/06/2024 Ocular migraine [G43.109] 05/06/2024 Family history of genetic disorder [Z84.89] 10/31/2024 Obesity affecting in third trimester *10/31/2024 Heartburn during in first trimester [*10/31/2024 History of smoking [Z87.891] 10/31/2024 History of ectopic [Z87.59] 10/31/2024 Rubella non-immune status, antepartum [O09.899,*11/19/2024 Supervision of high risk in third tri*01/28/2025 Marginal insertion of umbilical cord affecting *01/28/2025 Elevated glucose [R73.09] 03/26/2025 Hypokalemia [E87.6] 03/26/2025 Insulin controlled gestational diabetes mellitu*03/27/2025 Gestational hypertension without significant pr*05/07/2025 Gestational hypertension without significant pr*05/07/2025 05/07/2025 Encounter Status:Closed by ZHARA BAEZ on 05/14/25 Normal [facility] Erythrocyte distribution wid th ratioOrdered By: Araceli Medrano on 05-14-2025 Erythrocyte distribution width (RBC) [Ratio] 13.3 % 11.6-14.6 [facility] Erythrocyte distribution wid th standard deviationOrdered By: Araceli Medrano on 05-14-2025 Erythrocyte distribution width (RBC) [Ratio] 43.4 fl 35.1-43.9 [facility] Glomerular filtration rate ( GFR) estimation/1.73 sq m using serum, plasma, or whole bOrdered By: Araceli Medrano on 05-14-2025 GFR/1.73 sq M.predicted among non-blacks MDRD (S/P/Bld) [Vol rate/Area] 129 mL/min/{1.73_m2} >60 [facility] Comment on above: mL/min/1.73m2 CKD-EP I Creatinine Equation (2020) Hematocrit Auto (Bld) [Volum e fraction]Ordered By: Araceli Medrano on 05-14-2025 Hematocrit (Bld) [Volume fraction] 34.4 % Low 37-47 [facility] Hemoglobin measurementOrdere d By: Araceli Medrano on 05-14-2025 Hemoglobin (Bld) [Mass/Vol] 11.5 g/dL Low 12.0-15.0 [facility] - Chemistry and C hemistry - challengeOrdered By: Araceli Medrano on 05-14-2025 AST [Catalytic activity/Vol] 15 U/L <32 [facility] MCV (mean corpuscular volume ) determinationOrdered By: Araceli Medrano on 05-14-2025 MCV (RBC) [Entitic vol] 88.9 fL 81-99 [facility] Mean corpuscular hemoglobin (MCH) determinationOrdered By: Araceli Medrano on 05-14-2025 MCH (RBC) [Entitic mass] 29.7 pg 27.0-32.0 [facility] Mean corpuscular hemoglobin concentration (MCHC) determinationOrdered By: Araceli Medrano on 05-14-2025 MCHC (RBC) [Mass/Vol] 33.4 g/dL 32-36 [facility] Mean platelet volume determi nationOrdered By: Araceli Medrano on 05-14-2025 Platelet mean volume (Bld) [Entitic vol] 10.6 fL 6.2-12.0 [facility] Platelet countOrdered By: Sa ra Medrano on 05-14-2025 Platelets (Bld) [#/Vol] 265 10*3/uL 150-450 [facility] Protein+Creatinine Ratio,Uri neon 05-14-2025 PROT:CRE RATIO 141 mg/g CRE Normal 0-200 [facility] Comment on above: Performed By: #### L 100.0500, L501.4100, L501.4405, L501.0900, L501.1105, L501.1400 #### [facility] [address] [place], [address] Protein (U) [Mass/Vol] 7.3 mg/dL Normal 0.0-12.0 [facility] Comment on above: Performed By: #### L 100.0500, L501.4100, L501.4405, L501.0900, L501.1105, L501.1400 #### [facility] [address] [place], [address] UR CREAT 51.50 mg/dL Normal 28.00-217.00 [facility] Comment on above: Performed By: #### L 100.0500, L501.4100, L501.4405, L501.0900, L501.1105, L501.1400 #### [facility] [address] [place], [address] RBC Auto (Bld) [#/Vol]Ordere d By: Araceli Medrano on 05-14-2025 RBC (Bld) [#/Vol] 3.87 10*6/uL Low 4.2-5.4 [facility] Random urine creatinine harvinder urement (mass/volume)Ordered By: Araceli Medrano on 05-14-2025 Creatinine Unsp time (U) [Mass/Vol] 51.50 mg/dL 28.00-217.00 [facility] Serum Creatinine AND GFRon 0 05-14-2025 Creatinine [Mass/Vol] 0.51 mg/dL Low 0.70-1.20 [facility] Comment on above: Performed By: #### L 100.0500, L501.4100, L501.4405, L501.0900, L501.1105, L501.1400 #### [facility] [address] [place], [address] ECRCL 193.88 ml/min Normal 50-250 [facility] Comment on above: Performed By: #### L 100.0500, L501.4100, L501.4405, L501.0900, L501.1105, L501.1400 #### [facility] [address] [place], [address] GFR/1.73 sq M.predicted among non-blacks MDRD (S/P/Bld) [Vol rate/Area] 129 mL/min/{1.73_m2} Normal >60 [facility] Comment on above: Result Comment: mL/m in/1.73m2 CKD-EPI Creatinine Equation (2020) Performed By: #### L 100.0500, L501.4100, L501.4405, L501.0900, L501.1105, L501.1400 #### [facility] [address] [place], [place], [id number] Serum creatinine measurement (mass/volume)Ordered By: Araceli Medrano on 05-14-2025 Creatinine [Mass/Vol] 0.51 mg/dL Low 0.70-1.20 [facility] Serum or plasma alanine pak otransferase (ALT) measurementOrdered By: Araceli Medrano on 05-14-2025 ALT [Catalytic activity/Vol] 12 U/L <35 [facility] Serum or plasma uric acid me asurement (mass/volume)Ordered By: Araceli Medrano on 05-14-2025 Urate [Mass/Vol] 4.6 mg/dL 2.6-6.0 [facility] Comment on above: The drugs N-Acetylcy steine and Metamizole may falsely depress this assay. Uric Acidon 05-14-2025 URIC 4.6 mg/dL Normal 2.6-6.0 [facility] Comment on above: Result Comment: The drugs N-Acetylcysteine and Metamizole may falsely depress this assay. Performed By: #### L 100.0500, L501.4100, L501.4405, L501.0900, L501.1105, L501.1400 #### [facility] [address] [place], [place], [id number] Urine protein measurement (m ass/volume)Ordered By: Araceli Medrano on 05-14-2025 Protein (U) [Mass/Vol] 7.3 mg/dL 0.0-12.0 [facility] Urine protein/creatinine mas s ratioOrdered By: Araceli Medrano on 05-14-2025 Protein/Creatinine (U) [Mass ratio] 141 mg/g CRE 0-200 [facility] White blood cell (WBC) count Ordered By: Araceli Medrano on 05-14-2025 WBC (Bld) [#/Vol] 9.7 10*3/uL 4.4-11.0 [facility] ROUTINE, GROUP B ST REPTOCOCCUS BY PCRon 05-12-2025 ROUTINE, GROUP B STREPTOCOCCUS BY PCR Not detected Normal [facility] Comment on above: Performed By: #### G BPCR ####[facility] LABCLIA [id number] [address] STATES OF [facility] URINE OB DIP B/Oon Glucose Ql (U) Negative Neg mg/dL [facility] Interpretation and review of laboratory results Normal [facility] Protein.monoclonal (U) [Mass/Vol] Negative Neg mg/dL [facility] AST(SGOT)Ordered By: Demar Bobo on 05-06-2025 AST [Catalytic activity/Vol] 18 U/L Normal <=31 [facility] Comment on above: Performed By: #### L 100.0500, L501.4405, L501.4100, L501.1105, L501.0900, L501.1400 ####[facility] [id number] [place], [place], [id number] Automated blood erythrocyte countOrdered By: Nicolette Bobo on 05-06-2025 RBC (Bld) [#/Vol] 3.90 10*6/uL Low 4.2-5.4 [facility] Comment on above: Performed By: #### L 100.0500, L501.4405, L501.4100, L501.1105, L501.0900, L501.1400 #### [facility] [address] [place], [place], [id number] Automated blood hematocrit ( percentage)Ordered By: Nicolette Bobo on 05-06-2025 Hematocrit (Bld) [Volume fraction] 35.0 % Low 37-47 [facility] Comment on above: Performed By: #### L 100.0500, L501.4405, L501.4100, L501.1105, L501.0900, L501.1400 #### [facility] [address] [place], [address] CBC-Complete Blood Cnt No Di ffon 05-06-2025 RDW SD 44.3 fl High 35.1-43.9 [facility] Comment on above: Performed By: #### L 100.0500, L501.4405, L501.4100, L501.1105, L501.0900, L501.1400 #### [facility] [address] [place], [address] CNPShobha 05-06-2025 CNPN Telephone (OBGYWM) MILLIE WATKINS ([id number]) 1995 F Date Time Provider Department 05/06/25 NICOLETTE BOBO OBGYWMary Anne During your visit today, we recorded the following information about you: Mary Liang, RN 05/06/2025 12:22 PM Signed Patient called in stating that she bought a BP cuff and took her BP today and it was 143/93 . She states her eyelids are swollen. States no other new body swelling. Also c/o pressure behind her eyes, Denies any visual disturbances or epigastric pain. Baby active. After talking to her more she said she took a BP and it was 180/121. She is not sure she is taking it right. I talked to Nicolette and patient advised to go to hospital. She is aware to have someone drive her. I called Agnieszka at [facility] and informed her. Copy of Episode sent to [facility] Allergies As of Date: 05/06/2025 Noted Allergy Reaction AMOXICILLIN 01/09/2017 2 - Rash ZYTHROMAX (AZITHROMYCIN) 01/09/2017 2 - Rash Date Reviewed: 04/27/2025 Reviewed by: Zahra Muniz MD - Fully Assessed Prescriptions as of 05/06/2025 - insulin needles, DISPOSABLE, (PEN NEEDLE) 31 gauge x 5/16 1 each two times a day. - insulin NPH subcutaneous pen Inject 10 Units subcutaneously daily at bedtime. - ferrous sulfate 325 mg (65 mg iron) EC tablet Take 325 mg by mouth. - blood sugar diagnostic test strip Use as directed to check glucose levels up to seven times daily. - Lancets Use as directed to check glucose levels up to seven times daily. - alcohol swabs (ALCOHOL PREP PADS) Use as directed to check glucose levels up to seven times daily. - famotidine (PEPCID) 20 mg tablet Take 1 tablet by mouth two times a day. - aspirin, enteric coated (ECOTRIN LOW STRENGTH) 81 mg EC tablet Take 1 tablet by mouth once daily. - no115/iron/folic acid ( 19 ORAL) Take by mouth. Problem List As Of Date 05/06/2025 Noted Resolved PCOS (polycystic ovarian syndrome) [E28.2] 05/06/2024 Elevated LDL cholesterol level [E78.00] 05/06/2024 Vitamin D deficiency [E55.9] 05/06/2024 Ocular migraine [G43.109] 05/06/2024 Family history of genetic disorder [Z84.89] 10/31/2024 Obesity affecting in second trimester*10/31/2024 Heartburn during in first trimester [*10/31/2024 History of smoking [Z87.891] 10/31/2024 History of ectopic [Z87.59] 10/31/2024 Rubella non-immune status, antepartum [O09.899,*11/19/2024 Supervision of high risk in second tr*01/28/2025 Marginal insertion of umbilical cord affecting *01/28/2025 Elevated glucose [R73.09] 03/26/2025 Hypokalemia [E87.6] 03/26/2025 Insulin controlled gestational diabetes mellitu*03/27/2025 Encounter Status:Closed by LALI AGUIAR on 05/06/25 Normal [facility] Erythrocyte distribution wid th ratioOrdered By: Nicolette Bobo on 05-06-2025 Erythrocyte distribution width (RBC) [Ratio] 13.6 % Normal 11.6-14.6 [facility] Comment on above: Performed By: #### L 100.0500, L501.4405, L501.4100, L501.1105, L501.0900, L501.1400 #### [facility] [address] [place], [address] Erythrocyte distribution wid th standard deviationOrdered By: Nicolette Bobo on 05-06-2025 Erythrocyte distribution width (RBC) [Ratio] 44.3 fl High 35.1-43.9 [facility] Glomerular filtration rate ( GFR) estimation/1.73 sq m using serum, plasma, or whole bOrdered By: Nicolette Bobo on 05-06-2025 GFR/1.73 sq M.predicted among non-blacks MDRD (S/P/Bld) [Vol rate/Area] 129 mL/min/{1.73_m2} Normal >60 [facility] Comment on above: mL/min/1.73m2 CKD-EP I Creatinine Equation (2020) Result Comment: mL/m in/1.73m2 CKD-EPI Creatinine Equation (2020) Performed By: #### L 100.0500, L501.4405, L501.4100, L501.1105, L501.0900, L501.1400 ####[facility] [address] [place], [address] Hemoglobin measurementOrdere d By: Nicolette Bobo on 05-06-2025 Hemoglobin (Bld) [Mass/Vol] 11.7 g/dL Low 12.0-15.0 [facility] Comment on above: Performed By: #### L 100.0500, L501.4405, L501.4100, L501.1105, L501.0900, L501.1400 #### [facility] [address] [place], [address] MCV (mean corpuscular volume ) determinationOrdered By: Nicolette Bobo on 05-06-2025 MCV (RBC) [Entitic vol] 89.7 fL Normal 81-99 [facility] Comment on above: Performed By: #### L 100.0500, L501.4405, L501.4100, L501.1105, L501.0900, L501.1400 #### [facility] [address] [place], [place], [id number] Mean corpuscular hemoglobin (MCH) determinationOrdered By: Nicolette Bobo on 05-06-2025 MCH (RBC) [Entitic mass] 30.0 pg Normal 27.0-32.0 [facility] Comment on above: Performed By: #### L 100.0500, L501.4405, L501.4100, L501.1105, L501.0900, L501.1400 #### [facility] [address] [place], [address] Mean corpuscular hemoglobin concentration (MCHC) determinationOrdered By: Nicolette Bobo on 05-06-2025 MCHC (RBC) [Mass/Vol] 33.4 g/dL Normal 32-36 [facility] Comment on above: Performed By: #### L 100.0500, L501.4405, L501.4100, L501.1105, L501.0900, L501.1400 #### [facility] [address] [place], [place], [id number] Mean platelet volume determi nationOrdered By: Nicolette Bobo on 05-06-2025 Platelet mean volume (Bld) [Entitic vol] 10.7 fL Normal 6.2-12.0 [facility] Comment on above: Performed By: #### L 100.0500, L501.4405, L501.4100, L501.1105, L501.0900, L501.1400 #### [facility] [address] [place], [place], [id number] OB Triage Physician Noteon 0 05-06-2025 OB Triage Physician Note [facility] Medical Records Department [address] [place] [address] OB Triage Physician Note 05/06/25 1744 MR#: [id number] Acct: [id number] Name: MILLIE WATKINS Rep #: [id number] : 1995 29 From: Nicolette Bobo CNM PCP: Care Physician,No Primary Status:REG CLI Y Location: [place] [id number] HPI - General HPI Narrative MILLIE WATKINS, is a 29 F who presents to triage with elevated blood pressure at home. Patient called into office because she had bought a blood pressure cuff and BP was elevated to 143/93, 180/121. Patient reports a headache that radiates behind her eyes. RN recommended patient come to triage. PFSH PFSH Home Medications ???Medication ???Instructions ???Recorded ???Last Taken ???Type [id number] -epa-fish PO 05/06/25 Unknown History aspirin 81mg q day 05/06/25 05/05/25 History insulin NPH isoph U-100 human subcut 05/06/25 Unknown History Allergy/AdvReac Type Severity Reaction Status Date / Time amoxicillin Allergy Intermediate rash Verified 05/06/25 15:54 azithromycin (From z pack) Allergy Intermediate rash Verified 05/06/25 15:54 ROS Eyes Eyes: Denies blurry vision ENT HEENT: Reports as per HPI, headache(s), sinus pain and sinus pressure Cardiovascular Cardiovascular: Reports none; Denies chest pain at rest, chest pain with activity or dizziness Respiratory/Chest Respiratory/Chest: Denies cough or dyspnea Gastrointestinal Gastrointestinal: Reports none and other; Denies diarrhea or vomiting Genitourinary Genitourinary: Denies dysuria Musculoskeletal Musculoskeletal: Reports none Integumentary Integumentary: Reports none; Denies rash Psychiatric Psychiatric: Reports none Physical Exam Const alert and no apparent distress General Appearance: cooperative Orientation / Consciousness: awake Exam Limitations: no limitations HEENT normocephalic Eyes General Eye: normal appearance of both eyes Neck full ROM Chest inspection of chest normal Resp normal respiratory effort and normal air movement Effort and Inspection: symmetric chest movement Auscultation: clear to auscultation bilaterally Cardio regular rate GI soft to palpation, non-tender and non-distended Inspection: and other Back/Spine normal ROM Extremity full ROM, normal capillary refill and no calf tenderness Skin no rashes or lesions noted Neuro oriented x3 and CN's II-XII intact bilaterally Psych mental status grossly normal NST FHR Rate Baby A Baseline: 130 Variability:: Moderate Accelerations:: 15 x 15 Decelerations:: Variable NST Reactive:: Yes Uterine Activity:: irritability Assessment Plan (1) Elevated blood pressure affecting , antepartum: (2) 34 weeks gestation of : (3) Headache: (4) GDM, class A2: PLAN: Plan Blood pressures stable- no severe ranges Last BP 118/71 PIH labs - normal Tylenol 1000 mg PO x 1 Benadryl 25 mg PO x 1 Headache resolved after medication CE - outer os 1cm- funnels to closed D/C home with follow up in office tomorrow for NST/BEVERLY/BP check Dr. Shabazz notified and of A P 05/06/251801 Date Nicolette Bobo CNM Cosigner Signature (if applicable): Date CC: EUGENIA Bobo; No Primary Care Physician Signed ADDENDUM by EUGENIA Bobo on 05/06/25 at 1806 Addendum Patient VIRGIL 06/14/25 34.3 days gestation 05/06/251805 Date Nicolette Bobo CNM cc: EUGENIA Bobo; No Primary Care Physician * Signed Normal [facility] Platelet countOrdered By: Mikayla Bobo on 05-06-2025 Platelets (Bld) [#/Vol] 279 10*3/uL Normal 150-450 [facility] Comment on above: Performed By: #### L 100.0500, L501.4405, L501.4100, L501.1105, L501.0900, L501.1400 #### [facility] [address] [place], [address] Protein+Creatinine Ratio,Uri neon 05-06-2025 PROT:CRE RATIO 240 mg/g CRE High 0-200 [facility] Comment on above: Performed By: #### L 100.0500, L501.4405, L501.4100, L501.1105, L501.0900, L501.1400 ####[facility] [address] [place], [place], [id number] Random urine creatinine harvinder urement (mass/volume)Ordered By: Nicolette Bobo on 05-06-2025 Creatinine Unsp time (U) [Mass/Vol] 26.90 mg/dL Low 28.00-217.00 [facility] Comment on above: Previous reported re sult: 26.00 mg/dLEdited by: KIRK on 05/06/25:1627 AMENDED REPORT 05/06/25 1627 UR CREAT previously reported as: 26.00 L mg/dL Serum Creatinine AND GFRon 0 05-06-2025 ECRCL 187.87 ml/min Normal 50-250 [facility] Comment on above: Performed By: #### L 100.0500, L501.4405, L501.4100, L501.1105, L501.0900, L501.1400 ####[facility] [address] [place], [place], [id number] Serum creatinine measurement (mass/volume)Ordered By: Nicolette Bobo on 05-06-2025 Creatinine [Mass/Vol] 0.52 mg/dL Low 0.70-1.20 [facility] Comment on above: Performed By: #### L 100.0500, L501.4405, L501.4100, L501.1105, L501.0900, L501.1400 ####[facility] [address] [place], [address] Serum or plasma alanine pak otransferase (ALT) measurementOrdered By: Nicolette Bobo on 05-06-2025 ALT [Catalytic activity/Vol] 20 U/L Normal <=34 [facility] Comment on above: Performed By: #### L 100.0500, L501.4405, L501.4100, L501.1105, L501.0900, L501.1400 ####[facility] [address] [place], [place], [id number] Serum or plasma uric acid me asurement (mass/volume)Ordered By: Nicolette Bobo on 05-06-2025 Urate [Mass/Vol] 4.6 mg/dL 2.6-6.0 [facility] Comment on above: The drugs N-Acetylcy steine and Metamizole may falsely depress this assay. Uric Acidon 05-06-2025 URIC 4.6 mg/dL Normal 2.6-6.0 [facility] Comment on above: Result Comment: The drugs N-Acetylcysteine and Metamizole may falsely depress this assay. Performed By: #### L 100.0500, L501.4405, L501.4100, L501.1105, L501.0900, L501.1400 ####[facility] [address] [place], [address] Urine protein measurement (m ass/volume)Ordered By: Nicolette Bobo on 05-06-2025 Protein (U) [Mass/Vol] 6.5 mg/dL Normal 0.0-12.0 [facility] Comment on above: Performed By: #### L 100.0500, L501.4405, L501.4100, L501.1105, L501.0900, L501.1400 ####[facility] [address] [place], [place], [id number] Urine protein/creatinine mas s ratioOrdered By: Nicolette Bobo on 05-06-2025 Protein/Creatinine (U) [Mass ratio] 240 mg/g CRE High 0-200 [facility] White blood cell (WBC) count Ordered By: Nicolette Bobo on 05-06-2025 WBC (Bld) [#/Vol] 11.9 10*3/uL High 4.4-11.0 [facility] Comment on above: Performed By: #### L 100.0500, L501.4405, L501.4100, L501.1105, L501.0900, L501.1400 #### [facility] [address] [place], [address] UA DIP, URINE (POC)on 2024 BILIRUBIN UA (POCT) Negative Negative [facility] CLARITY UA (POCT) Clear [facility] COLOR UA (POCT) Yellow [facility] GLUCOSE UA (POCT) Negative Negative mg/dL [facility] Hemoglobin Ql (U) Negative Negative [facility] KETONE UA (POCT) Negative Negative mg/dL [facility] LEUKOCYTES UA (POCT) Negative Negative [facility] NITRITE UA (POCT) Negative Negative [facility] PH UA (POCT) 7 4.5 - 8.0 [facility] Protein Ql (U) Negative Negative mg/dL [facility] SPECIFIC GRAVITY UA (POCT) 1.01 1.005 - 1.030 [facility] UROBILINOGEN UA (POCT) 0.2 Martina l E.U./dL [facility] Location:[facility], [address], [place], [address] [facility] POINT OF CARE [facility] CNPNon 04-21-2025 CNPN Telephone (GENNYGYWM) MILLIE WATKINS ([id number]) 1995 F Date Time Provider Department 04/21/25 ZAHRA MUNIZ During your visit today, we recorded the following information about you: Efren Nino MA 04/21/2025 10:58 AM Signed 04/21/2025- received FMLA and Short term disability. Working on completing forms ALIN Crespo Reanna, MA 04/21/2025 4:20 PM Signed FMLA has been completed and signed. Efren Nino MA Allergies As of Date: 04/21/2025 Noted Allergy Reaction AMOXICILLIN 01/09/2017 2 - Rash ZYTHROMAX (AZITHROMYCIN) 01/09/2017 2 - Rash Date Reviewed: 04/21/2025 Reviewed by: Zahra Muniz MD - Fully Assessed Prescriptions as of 04/21/2025 - insulin NPH subcutaneous pen Inject 10 Units subcutaneously daily at bedtime. - ferrous sulfate 325 mg (65 mg iron) EC tablet Take 325 mg by mouth. - blood sugar diagnostic test strip Use as directed to check glucose levels up to seven times daily. - Lancets Use as directed to check glucose levels up to seven times daily. - alcohol swabs (ALCOHOL PREP PADS) Use as directed to check glucose levels up to seven times daily. - famotidine (PEPCID) 20 mg tablet Take 1 tablet by mouth two times a day. - aspirin, enteric coated (ECOTRIN LOW STRENGTH) 81 mg EC tablet Take 1 tablet by mouth once daily. - no115/iron/folic acid ( 19 ORAL) Take by mouth. Problem List As Of Date 04/21/2025 Noted Resolved PCOS (polycystic ovarian syndrome) [E28.2] 05/06/2024 Elevated LDL cholesterol level [E78.00] 05/06/2024 Vitamin D deficiency [E55.9] 05/06/2024 Ocular migraine [G43.109] 05/06/2024 Family history of genetic disorder [Z84.89] 10/31/2024 Obesity affecting in second trimester*10/31/2024 Heartburn during in first trimester [*10/31/2024 History of smoking [Z87.891] 10/31/2024 History of ectopic [Z87.59] 10/31/2024 Rubella non-immune status, antepartum [O09.899,*11/19/2024 Supervision of high risk in second tr*01/28/2025 Marginal insertion of umbilical cord affecting *01/28/2025 Elevated glucose [R73.09] 03/26/2025 Hypokalemia [E87.6] 03/26/2025 Diet controlled gestational diabetes mellitus (*03/27/2025 Encounter Status:Closed by EFREN NINO on 04/21/25 Normal [facility] URINE OB DIP B/Oon Glucose Ql (U) Negative Neg mg/dL [facility] Interpretation and review of laboratory results Normal [facility] Protein.monoclonal (U) [Mass/Vol] Negative Neg mg/dL [facility] CNPNon 04-10-2025 CNPN Telephone (OBGYWM) ROLANDMILLIE ([id number]) 1995 F Date Time Provider Department 04/10/25 IRENE MC OBGYWM During your visit today, we recorded the following information about you: Zahra Baez RN 04/10/2025 10:48 AM Signed 30w5d Patient viewed 24 hour urine results on [employer]. She would like to know what the results mean. Please review. JOHN Bañuelos Jessica, APRN.CN 04/10/2025 1:31 PM Signed This is a normal result but will continue to monitor her. 0.25 or higher would be concerning during . Zahra Baez RN 04/10/2025 2:06 PM Signed Called and notified patient. Zahra Baez RN Allergies As of Date: 04/10/2025 Noted Allergy Reaction AMOXICILLIN 01/09/2017 2 - Rash ZYTHROMAX (AZITHROMYCIN) 01/09/2017 2 - Rash Date Reviewed: 03/25/2025 Reviewed by: Merry White MD - Fully Assessed Reason for Visit: 24 hour Urine [Other] Prescriptions as of 04/10/2025 - ferrous sulfate 325 mg (65 mg iron) EC tablet Take 325 mg by mouth. - blood sugar diagnostic test strip Use as directed to check glucose levels up to seven times daily. - Lancets Use as directed to check glucose levels up to seven times daily. - alcohol swabs (ALCOHOL PREP PADS) Use as directed to check glucose levels up to seven times daily. - famotidine (PEPCID) 20 mg tablet Take 1 tablet by mouth two times a day. - aspirin, enteric coated (ECOTRIN LOW STRENGTH) 81 mg EC tablet Take 1 tablet by mouth once daily. - no115/iron/folic acid ( 19 ORAL) Take by mouth. Problem List As Of Date 04/10/2025 Noted Resolved PCOS (polycystic ovarian syndrome) [E28.2] 05/06/2024 Elevated LDL cholesterol level [E78.00] 05/06/2024 Vitamin D deficiency [E55.9] 05/06/2024 Ocular migraine [G43.109] 05/06/2024 Family history of genetic disorder [Z84.89] 10/31/2024 Obesity affecting in second trimester*10/31/2024 Heartburn during in first trimester [*10/31/2024 History of smoking [Z87.891] 10/31/2024 History of ectopic [Z87.59] 10/31/2024 Rubella non-immune status, antepartum [O09.899,*11/19/2024 Supervision of high risk in second tr*01/28/2025 Marginal insertion of umbilical cord affecting *01/28/2025 Elevated glucose [R73.09] 03/26/2025 Hypokalemia [E87.6] 03/26/2025 Diet controlled gestational diabetes mellitus (*03/27/2025 Encounter Status:Closed by ZAHRA BAEZ on 04/10/25 Normal [facility] Prot 24h Ur-mRateon 04-09-20 25 Protein (24H U) [Mass/Time] 0.21 g/24 Hr High <0.15 [facility] Comment on above: Order Comment: Speci men Type: URINE SPECIMENOrdering Facility: [facility] Address: [address] [place] [address] Result Comment: Adul t Proteinuria Categories: <0.15 g/24 hours is considered normal to mildly increased 0.15 - 0.50 g/24 hours is considered moderately increased >0.50 g/24 hours is considered severely increased KDIGO. (2013). KDIGO 2012 Clinical Practice Guideline for the Evaluation and Management of Chronic Kidney Disease. Official Journal of the International Society of Nephrology, 3(1), 1-150. Performed By: #### 2 889-4 ####[facility]IA [id number] [place] [id number] [facility] [id number] [place] [address] [place] Protein (24H U) [Mass/Time]o n 04-09-2025 PERIOD (HRS) 24 hr Normal [facility] Comment on above: Order Comment: Speci men Type: URINE SPECIMENOrdering Facility: [facility] Address: [address] [place] [address] Performed By: #### 2 889-4 ####[facility] [id number] [address] [id number] [place] [address] [place] Specimen volume (24H U) 5.15 L Normal [facility] Comment on above: Order Comment: Speci men Type: URINE SPECIMENOrdering Facility: [facility] Address: [address] [place] [address] Performed By: #### 2 889-4 ####[facility] [id number] [id number] [place] [address] [place] Examination level ultrasound on 04-07-2025 [facility] Radiology Study observation (narrative) Chetan Leyva Prot 24h Ur-mRateon 04-02-20 25 Protein (24H U) [Mass/Time] 0.14 g/24 Hr Normal <0.15 [facility] Comment on above: Order Comment: Speci men Type: URINE SPECIMENOrdering Facility: [facility] Address: [address] [place], [place] [id number] Result Comment: Adul t Proteinuria Categories: <0.15 g/24 hours is considered normal to mildly increased 0.15 - 0.50 g/24 hours is considered moderately increased >0.50 g/24 hours is considered severely increased KDIGO. (2013). KDIGO 2012 Clinical Practice Guideline for the Evaluation and Management of Chronic Kidney Disease. Official Journal of the International Society of Nephrology, 3(1), 1-150. Performed By: #### 2 889-4 ####[facility] [id number] [address] [id number] [place] [address] [place] Protein (24H U) [Mass/Time]o n 04-02-2025 PERIOD (HRS) 24 hr Normal [facility] Comment on above: Order Comment: Speci men Type: URINE SPECIMENOrdering Facility: [facility] Address: [address] [place] [address] Performed By: #### 2 889-4 ####[facility] [id number] [id number] [place] [address] [place] Specimen volume (24H U) 2.7 L Normal [facility] Comment on above: Order Comment: Speci men Type: URINE SPECIMENOrdering Facility: [facility] Address: [address] [place] [address] Performed By: #### 2 889-4 ####[facility] [id number] [address] [id number] [place] [address] [place] CNNURSEon 03-31-2025 CNNURSE Nurse Visit (EDEDSJ) MILLIE WATKINS ([id number]) 1995 F Date Time Provider Department 03/31/25 9:00 AM LIDIA PRITCHETT During your visit today, we recorded the following information about you: Lidia Pritchett, RN 03/31/2025 11:03 AM Signed DIABETES SELF-MANAGEMENT EDUCATION AND SUPPORT Location: [facility] Type of visit: Virtual (with video) individual -- I have communicated my name and active licensure. The patient's identity and physical location were verified at the time of this visit. Either the patient or their legal footwear sales representative has been informed of the risks and benefits of -- and alternatives to -- treatment through a remote evaluation and consents to proceed with the evaluation remotely. Types of DSMES: Initial/Comprehensive (add to or update ADA spreadsheet) PATIENT'S MAIN CONCERN TODAY: no specific concerns, not surprised with diagnosis, history of PCOS Support person present for education today: none Cognitive ability: Alert and oriented Motivation to learn: Interested Learning barriers identified by educator: none Method of instruction: written, verbal, and demonstration INTERVENTIONS/TOPICS COVERED: -Diabetes Pathophysiology: gestational diabetes basics -Monitoring: BG targets, Pt able to do a successful self-check of BG with no coaching, sharps disposal, testing frequency, and using a home glucose monitor -Healthy Eating: impact of carbs on BG, basic carb counting, foods with carbs, portion sizes, fiber, reading food labels, recommendation for 15 to 30 g carb for breakfast and daytime snacks, 45 to 60 g carb for lunch and dinner, 30 g for bedtime snack, include healthy source of protein with all meals and snacks, carb counting tools (books, Internet, smartphone apps), and healthy heart options, importance of adequate carb intake to prevent ketosis -Medications: briefly discussed insulin as first line medication therapy in gestational diabetes, patient was taking Metformin through first trimester (was taking for PCOS) but now discontinued -Physical Activity: benefits of exercise and types of exercise -Acute Complications: hypoglycemia s/sx/tx and hyperglycemia s/sx/tx, DIABETES ASSESSMENT: Referring Physician: Nicolette Bobo Previous Diabetes Education? No , has had nutritional counseling in the past for PCOS/insulin resistance What are you hoping to gain from this visit? A review of carb counting In your words, what is gestational diabetes? Insulin resistance in , elevated BG What concerns you about having gestational diabetes? Health of baby Diabetes History: Type of Diabetes: Gestational ( diabetes in ) How far along is your ? Weeks: 29 Does anyone in your family have diabetes? 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 never How often does someone help you read your pill bottles? never How often does someone have to help you take care of your diabetes? never Major stressors:asked/not answered How do you manage stress? asked/not answered Do any of the following things get in the way of managing your diabetes? No self-identified issues Health History: Do you use tobacco? No Do you use alcohol? No In the past 12 months have you had any: Hospital Admissions: Asked/not answered ER Visits: Asked/not answered Primary Care Visits: Asked/not answered What are your general feelings about you overall health? Good Medical Issues/Complications: reviewed below To whom are you reporting your blood sugar levels? High-Risk OB PAST MEDICAL HISTORY Diagnosis Date Asthma (HCC) Childhood asthma History of ectopic 10/31/2024 Migraine with aura, with intractable migraine, so stated, with status migrainosus occular migraines as a teenager PCOS (polycystic ovarian syndrome) Most recent A1C Lab Results Component Value Date HBA1C 5.2 11/17/2024 HBA1C 5.2 07/14/2023 HBA1C 5.6 02/22/2022 Physical Activity: Do you do a regular exercise? No, sedentary job, try to get up and walk around the house if sitting too long, more active on weekends Sleep: Do you get at least 7 hrs of sleep most nights? Yes but intermittent, wake up every 2 hours Current Outpatient Medications Medication Sig blood sugar diagnostic test strip Use as directed to check glucose levels up to seven times daily. Lancets Use as directed to check glucose levels up to seven times daily. alcohol swabs (ALCOHOL PREP (more content not included)... Normal [facility] CNPNon 03-31-2025 CNPN Telephone (AKDIAA) ROLANDMILLIE ([id number]) 1995 F Date Time Provider Department 03/31/25 DAMIEN KHAN During your visit today, we recorded the following information about you: Damien Khan RD 03/31/2025 11:26 AM Signed Nicolette I moved Millie to my schedule on Sunday for the nutrition portion of her Diabetes education. The RD in [place] is not comfortable with and diabetes/GDM. I moved her to my schedule. In the future you can fax the referral to [phone], have the pt call our office and we can schedule them [phone], or send a staff message or CCd the chart to us to notify us of the consult. Thank you. Damien Khan, MS ARCEO Nicolette Gomez APRN.CNM 04/01/2025 10:22 AM Signed Thank you! Nicolette Bobo APRN.CNM Allergies As of Date: 03/31/2025 Noted Allergy Reaction AMOXICILLIN 01/09/2017 2 - Rash ZYTHROMAX (AZITHROMYCIN) 01/09/2017 2 - Rash Date Reviewed: 03/25/2025 Reviewed by: Merry White MD - Fully Assessed Reason for Visit: Patient Update [1234] Prescriptions as of 04/01/2025 - blood sugar diagnostic test strip Use as directed to check glucose levels up to seven times daily. - Lancets Use as directed to check glucose levels up to seven times daily. - alcohol swabs (ALCOHOL PREP PADS) Use as directed to check glucose levels up to seven times daily. - famotidine (PEPCID) 20 mg tablet Take 1 tablet by mouth two times a day. - aspirin, enteric coated (ECOTRIN LOW STRENGTH) 81 mg EC tablet Take 1 tablet by mouth once daily. - no115/iron/folic acid ( 19 ORAL) Take by mouth. Problem List As Of Date 03/31/2025 Noted Resolved PCOS (polycystic ovarian syndrome) [E28.2] 05/06/2024 Elevated LDL cholesterol level [E78.00] 05/06/2024 Vitamin D deficiency [E55.9] 05/06/2024 Ocular migraine [G43.109] 05/06/2024 Family history of genetic disorder [Z84.89] 10/31/2024 Obesity affecting in second trimester*10/31/2024 Heartburn during in first trimester [*10/31/2024 History of smoking [Z87.891] 10/31/2024 History of ectopic [Z87.59] 10/31/2024 Rubella non-immune status, antepartum [O09.899,*11/19/2024 Supervision of high risk in second tr*01/28/2025 Marginal insertion of umbilical cord affecting *01/28/2025 Elevated glucose [R73.09] 03/26/2025 Hypokalemia [E87.6] 03/26/2025 Diet controlled gestational diabetes mellitus (*03/27/2025 Encounter Status:Closed by NICOLETTE BOBO on 04/01/25 Normal [facility] Basic metabolic 2000 panelon 03-27-2025 Anion gap [Moles/Vol] 13 mmol/L Normal 8-15 [facility] Comment on above: Order Comment: Speci men Type: BLOOD SPECIMENOrdering Facility: [facility] Address: [address] [place] [address] [place] [address] Performed By: #### 2 4321-2 ####[facility] CHAVA PRATERMOMO [id number] [place] [address] [place] Calcium [Mass/Vol] 9.6 mg/dL Normal 8.5-10.2 [facility] Comment on above: Order Comment: Speci men Type: BLOOD SPECIMENOrdering Facility: [facility] Address: [address] [place] [address] Performed By: #### 2 4321-2 ####[facility]ITALNCLIA [id number] [place] [address] [place] Chloride [Moles/Vol] 103 mmol/L Normal 98-107 [facility] Comment on above: Order Comment: Speci men Type: BLOOD SPECIMENOrdering Facility: [facility] Address: [address] [place] [address] Performed By: #### 2 4321-2 ####[facility]ITALNCLIA [id number] [place] [address] [place] CO2 [Moles/Vol] 20 mmol/L Low 22-30 [facility] Comment on above: Order Comment: Speci men Type: BLOOD SPECIMENOrdering Facility: [facility] Address: [address] [place] [address] Performed By: #### 2 4321-2 ####[facility]ITALNCLIA [id number] [place] [address] [place] Creatinine [Mass/Vol] 0.49 mg/dL Low 0.58-0.96 [facility] Comment on above: Order Comment: Speci men Type: BLOOD SPECIMENOrdering Facility: [facility] Address: [address] [place] [address] Performed By: #### 2 4321-2 ####[facility]ITALNCLIA [id number] [place] [address] [place] Creatinine and Glomerular filtration rate.predicted panel (S/P/Bld) 131 mL/min/1.73m??? Normal >=60 [facility] Comment on above: Order Comment: Speci men Type: BLOOD SPECIMENOrdering Facility: [facility] Address: [address] [place] [address] Result Comment: Fabby mated Glomerular Filtration Rate (eGFR) is calculated using the 2020 CKD-EPI creatinine equation. This equation utilizes serum creatinine, sex, and age as parameters. The creatinine assay has traceable calibration to isotope dilution-mass spectrometry. Refer to KDIGO guidelines for clinical interpretation. In patients with unstable renal function, e.g. those with acute kidney injury, the eGFR may not accurately reflect actual GFR. Performed By: #### 2 4321-2 ####[facility] HOSPITALCARYLWinston [id number] [place] [address] [place] Glucose [Mass/Vol] 85 mg/dL Normal 74-99 [facility] Comment on above: Order Comment: Quita valentin Type: BLOOD SPECIMENOrdering Facility: [facility] Address: [address] [place] [address] Result Comment: The [place] Diabetes Association (ADA) provides guidance for cutoff values for fasting glucose and random glucose. The ADA defines fasting as no caloric intake for at least 8 hours. Fasting plasma glucose results between 100 to 125 mg/dL indicate increased risk for diabetes (prediabetes). Fasting plasma glucose results greater than or equal to 126 mg/dL meet the criteria for diagnosis of diabetes. In the absence of unequivocal hyperglycemia, results should be confirmed by repeat testing. In a patient with classic symptoms of hyperglycemia or hyperglycemic crisis, random plasma glucose results greater than or equal to 200 mg/dL meet the criteria for diagnosis of diabetes. Reference: Standards of Medical Care in Diabetes 2016, [place] Diabetes Association. Diabetes Care. 2016.39(Suppl 1). Performed By: #### 2 4321-2 ####[facility] [id number] [place] [address] [place] Potassium [Moles/Vol] 3.9 mmol/L Normal 3.7-5.1 [facility] Comment on above: Order Comment: Quita valentin Type: BLOOD SPECIMENOrdering Facility: [facility] Address: [address] [place] [address] Performed By: #### 2 4321-2 ####[facility] HOSPITALMOMO [id number] [place] [id number] [place] Sodium [Moles/Vol] 136 mmol/L Normal 136-144 [facility] Comment on above: Order Comment: Speci men Type: BLOOD SPECIMENOrdering Facility: [facility] Address: [address] [place], [place] [address] Performed By: #### 2 4321-2 ####[facility] [id number] [address] [place] Urea nitrogen [Mass/Vol] 8 mg/dL Normal 7-21 [facility] Comment on above: Order Comment: Speci men Type: BLOOD SPECIMENOrdering Facility: [facility] Address: [address] [place] [address] Performed By: #### 2 4321-2 ####[facility] [id number] [address] OF [facility] CNPShobha 03-27-2025 [facility] MILLIE WATKINS ([id number]) 1995 F Date Time Provider Department 03/27/25 NICOLETTE BOBO During your visit today, we recorded the following information about you: Minda Dela Cruz, JOHN 03/27/2025 3:03 PM Signed Nicolette Bobo APRN.CNM P Wstr Ob-Belt Knife Feeder Pool Please notify patient that 3 hour glucose tolerance test came back abnormal. Please order supplies as well as set up appointment with title clerk. She will need growth ultrasound scheduled el. Order placed. DHRUV Trevino Lindsey, JOHN 03/27/2025 3:08 PM Signed Please file pended orders. First available growth ultrasound appointment is not until 04/07, ok to wait until then-she would be 30 weeks. She already has growth scheduled at 32 weeks for marginal cord insertion. JOHN Salmon Courtney, APRN.EUGENIA 03/27/2025 3:23 PM Signed Yes, first available growth US is fine! Thank you. Nicolette Bobo APRN.Minda Wyman RN 03/27/2025 4:10 PM Signed Patient notified of results, verbalizes understanding of instructions. Appointments scheduled. Minda Dela Cruz RN Allergies As of Date: 03/27/2025 Noted Allergy Reaction AMOXICILLIN 01/09/2017 2 - Rash ZYTHROMAX (AZITHROMYCIN) 01/09/2017 2 - Rash Date Reviewed: 03/25/2025 Reviewed by: Merry White MD - Fully Assessed Reason for Visit: Gestational Diabetes [3789] Cmt: Primary Visit Diagnosis:Diet controlled gestational diabetes mellitus (GDM) in third trimester (HCC) [O24.410] Order(s):Blood-Glucos e MeterUse as directed to check glucose levels up to seven times daily.Disp: 1 eachRfl: 0 blood sugar diagnostic test stripUse as directed to check glucose levels up to seven times daily.Disp: 200 stripRfl: 8 LancetsUse as directed to check glucose levels up to seven times daily.Disp: 200 eachRfl: 8 alcohol swabs (ALCOHOL PREP PADS)Use as directed to check glucose levels up to seven times daily.Disp: 200 eachRfl: 8 CONSULT TO DIABETES EDUCATION DSME [2992487] Order #: [id number]: 2 FUTURE CONSULT TO NUTRITION THERAPY [9055] Order #: [id number]: 4 FUTURE Prescriptions as of 03/27/2025 - Blood-Glucose Meter Use as directed to check glucose levels up to seven times daily. - blood sugar diagnostic test strip Use as directed to check glucose levels up to seven times daily. - Lancets Use as directed to check glucose levels up to seven times daily. - alcohol swabs (ALCOHOL PREP PADS) Use as directed to check glucose levels up to seven times daily. - famotidine (PEPCID) 20 mg tablet Take 1 tablet by mouth two times a day. - aspirin, enteric coated (ECOTRIN LOW STRENGTH) 81 mg EC tablet Take 1 tablet by mouth once daily. - no115/iron/folic acid ( 19 ORAL) Take by mouth. 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] 05/06/2024 Family history of genetic disorder [Z84.89] 10/31/2024 Obesity affecting in second trimester*10/31/2024 Heartburn during in first trimester [*10/31/2024 History of smoking [Z87.891] 10/31/2024 History of ectopic [Z87.59] 10/31/2024 Rubella non-immune status, antepartum [O09.899,*11/19/2024 Supervision of high risk in second tr*01/28/2025 Marginal insertion of umbilical cord affecting *01/28/2025 Elevated glucose [R73.09] 03/26/2025 Hypokalemia [E87.6] 03/26/2025 GDM, class A1 (HCC) [O24.410] 03/27/2025 Prescriptions ordered this encounter Disp Refills Start End BLOOD-GLUCOSE METER 1 ea* 0 03/27/2025 03/28/2025 Cmt: Per Insurance Coverage Sig: Use as directed to check glucose levels up to seven times daily. BLOOD SUGAR DIAGNOSTIC STRIPS 200 * 8 03/27/2025 Cmt: Per Insurance Coverage Sig: Use as directed to check glucose levels up to seven times daily. LANCETS 200 * 8 03/27/2025 Cmt: Per Insurance Coverage Sig: Use as directed to check glucose levels up to seven times daily. ALCOHOL SWABS 200 * 8 03/27/2025 Cmt: Per Insurance Coverage Sig: Use as directed to check glucose levels up to seven times daily. Encounter Status:Closed by NICOLETTE BOBO on 03/27/25 Normal [facility] GLUCOSE GESTATIONAL, 1 HOURo n 03-27-2025 Glucose 1 Hr post Unsp challenge [Mass/Vol] 218 mg/dL High 74-179 [facility] Comment on above: Order Comment: Speci men Type: BLOOD SPECIMENOrdering Facility: [facility] Address: [address] [place], [place] [address] [address] Result Comment: [employer] Congress of Obstetricians and Gynecologists (Zackery/Erikan) guidelines state gestational diabetes mellitus is present when 2 or more of the plasma glucose concentrations meet or exceed the following levels: fastin mg/dl, 1 hr: 180 mg/dl, 2 hr: 155 mg/dl, and 3 hr: 140 mg/dl. Performed By: #### G TGST1 ####[facility] [id number] [place] [address] [place] GLUCOSE GESTATIONAL, 2 HOURo n 03-27-2025 Glucose 2 Hr post Unsp challenge [Mass/Vol] 238 mg/dL High 74-154 [facility] Comment on above: Order Comment: Speci barbie Type: BLOOD SPECIMENOrdering Facility: [facility] Address: [address] [place] [address] Result Comment: [employer] Congress of Obstetricians and Gynecologists (Vizcarra/[facility] Hospitalalex) guidelines state gestational diabetes mellitus is present when 2 or more of the plasma glucose concentrations meet or exceed the following levels: fastin mg/dl, 1 hr: 180 mg/dl, 2 hr: 155 mg/dl, and 3 hr: 140 mg/dl. Performed By: #### G TGST2 ####[facility] [id number] [place] [address] [place] GLUCOSE GESTATIONAL, 3 HOURo n 03-27-2025 Glucose 3 Hr post Unsp challenge [Mass/Vol] 110 mg/dL Normal 74-139 [facility] Comment on above: Order Comment: Speci men Type: BLOOD SPECIMENOrdering Facility: [facility] Address: [address] [place] [address] Result Comment: [employer] Congress of Obstetricians and Gynecologists (Vizcarra/[facility] Hospitalstan) guidelines state gestational diabetes mellitus is present when 2 or more of the plasma glucose concentrations meet or exceed the following levels: fastin mg/dl, 1 hr: 180 mg/dl, 2 hr: 155 mg/dl, and 3 hr: 140 mg/dl. Performed By: #### G TGST3 ####[facility] [id number] [place] [address] [place] GLUCOSE GESTATIONAL, FASTING on 03-27-2025 Glucose post fast [Mass/Vol] 85 mg/dL Normal 74-94 [facility] Comment on above: Order Comment: Speci men Type: BLOOD SPECIMENOrdering Facility: [facility] Address: [address] [place] [address] Result Comment: [employer] Congress of Obstetricians and Gynecologists (Zackery/Ellen) guidelines state gestational diabetes mellitus is present when 2 or more of the plasma glucose concentrations meet or exceed the following levels: fastin mg/dl, 1 hr: 180 mg/dl, 2 hr: 155 mg/dl, and 3 hr: 140 mg/dl. Performed By: #### G TGSTF ####[facility] [id number] [place] [address] [place] CBC W Auto Differential pane l (Bld)on 03-25-2025 Basophils (Bld) [#/Vol] 0.03 10*3/uL Normal <0.11 [facility] Comment on above: Order Comment: Speci men Type: BLOOD SPECIMENOrdering Facility: [facility] Address: [address] [place] [address] Performed By: #### 5 7021-8 ####[facility] [id number] [place] [address] [place] Basophils/100 WBC (Bld) 0.2 % Normal C [facility] Comment on above: Order Comment: Speci men Type: BLOOD SPECIMENOrdering Facility: [facility] Address: [address] [place] [address] Performed By: #### 5 7021-8 ####[facility] [id number] [place] [address] [place] Differential cell count method Nom (Bld) Auto Normal [facility] Comment on above: Order Comment: Speci men Type: BLOOD SPECIMENOrdering Facility: [facility] Address: [address] [place] [address] Performed By: #### 5 7021-8 ####[facility] DAYNEKELBYXIMENAWinston [id number] [place] [address] [place] Eosinophils (Bld) [#/Vol] 0.07 10*3/uL Normal <0.46 [facility] Comment on above: Order Comment: Speci men Type: BLOOD SPECIMENOrdering Facility: [facility] Address: [address] [place] [address] Performed By: #### 5 7021-8 ####[facility] HOSPITALCARYLWinston [id number] [place] [address] [place] Eosinophils/100 WBC (Bld) 0.6 % Normal [facility] Comment on above: Order Comment: Speci men Type: BLOOD SPECIMENOrdering Facility: [facility] Address: [address] [place] [address] Performed By: #### 5 7021-8 ####[facility] HOSPITALNCRYAN [id number] [place] [address] [place] Erythrocyte distribution width (RBC) [Ratio] 11.8 % Normal 11.5-15.0 [facility] Comment on above: Order Comment: Speci men Type: BLOOD SPECIMENOrdering Facility: [facility] Address: [address] [place] [address] Performed By: #### 5 7021-8 ####[facility]ITALNCLIA [id number] [place] [address] [place] Hematocrit (Bld) [Volume fraction] 32.4 % Low 36.0-46.0 [facility] Comment on above: Order Comment: Speci men Type: BLOOD SPECIMENOrdering Facility: [facility] Address: [address] [place] [address] Performed By: #### 5 7021-8 ####[facility] DAYNEWCARYLLIA [id number] [place] [address] [place] Hemoglobin (Bld) [Mass/Vol] 11.0 g/dL Low 11.5-15.5 [facility] Comment on above: Order Comment: Speci men Type: BLOOD SPECIMENOrdering Facility: [facility] Address: [address] [place] [address] Performed By: #### 5 7021-8 ####[facility] CENTERLIA [id number] [place] [address] [place] Immature granulocytes (Bld) [#/Vol] 0.08 10*3/uL Normal <0.10 [facility] Comment on above: Order Comment: Speci men Type: BLOOD SPECIMENOrdering Facility: [facility] Address: [address] [place] [address] Performed By: #### 5 7021-8 ####[facility] [id number] [place] [address] [place] Immature granulocytes/100 WBC (Bld) 0.7 % Normal [facility] Comment on above: Order Comment: Speci men Type: BLOOD SPECIMENOrdering Facility: [facility] Address: [address] [place] [address] Performed By: #### 5 7021-8 ####[facility] HOSPITALFRANCOISEA [id number] [place] [address] [place] Lymphocytes (Bld) [#/Vol] 1.73 10*3/uL Normal 1.00-4.00 [facility] Comment on above: Order Comment: Speci men Type: BLOOD SPECIMENOrdering Facility: [facility] Address: [address] [place] [address] Performed By: #### 5 7021-8 ####[facility] HOSPITALNCBLUE [facility] [id number] [place] [id number] [place] Lymphocytes/100 WBC (Bld) 14.2 % Normal [facility] Comment on above: Order Comment: Speci men Type: BLOOD SPECIMENOrdering Facility: [facility] Address: [address] [place] [address] Performed By: #### 5 7021-8 ####[facility]PITALNCBLUE [facility] [id number] [place] [address] [place] MCH (RBC) [Entitic mass] 30.1 pg Normal 26.0-34.0 [facility] Comment on above: Order Comment: Speci men Type: BLOOD SPECIMENOrdering Facility: [facility] Address: [address] [place] [address] Performed By: #### 5 7021-8 ####[facility]PITALNCBLUE [facility] [id number] [place] [address] [place] MCHC (RBC) [Mass/Vol] 34.0 g/dL Normal 30.5-36.0 [facility] Comment on above: Order Comment: Speci men Type: BLOOD SPECIMENOrdering Facility: [facility] Address: [address] [place] [address] Performed By: #### 5 7021-8 ####[facility] HOSPITALNCLIA [id number] [place] [address] [place] MCV (RBC) [Entitic vol] 88.5 fL Normal 80.0-100.[address] [facility] Comment on above: Order Comment: Speci men Type: BLOOD SPECIMENOrdering Facility: [facility] Address: [address] [place] [address] Performed By: #### 5 7021-8 ####[facility]ITALNCLIA [id number] [place] [address] [place] Monocytes (Bld) [#/Vol] 0.70 10*3/uL Normal <0.87 [facility] Comment on above: Order Comment: Speci men Type: BLOOD SPECIMENOrdering Facility: [facility] Address: [address] [place] [address] Performed By: #### 5 7021-8 ####[facility] HOSPITALNCXIMENAA [id number] [place] [address] [place] Monocytes/100 WBC (Bld) 5.7 % Normal [facility] Comment on above: Order Comment: Speci men Type: BLOOD SPECIMENOrdering Facility: [facility] Address: [address] [place] [address] Performed By: #### 5 7021-8 ####[facility]ITALNCLIA [id number] [place] [address] [place] Neutrophils (Bld) [#/Vol] 9.59 10*3/uL High 1.45-7.50 [facility] Comment on above: Order Comment: Speci men Type: BLOOD SPECIMENOrdering Facility: [facility] Address: [address] [place] [address] Performed By: #### 5 7021-8 ####[facility] [id number] [place] [address] [place] Neutrophils/100 WBC (Bld) 78.6 % Normal [facility] Comment on above: Order Comment: Speci men Type: BLOOD SPECIMENOrdering Facility: [facility] Address: [address] [place] [address] Performed By: #### 5 7021-8 ####[facility] CENTERLIA [id number] [place] [address] [place] Nucleated RBC (Bld) [#/Vol] 10*3/uL Normal <0.01 [facility] Comment on above: Order Comment: Speci men Type: BLOOD SPECIMENOrdering Facility: [facility] Address: [address] [place] [address] Performed By: #### 5 7021-8 ####[facility] DAYNEKELBYLIA [id number] [place] [address] [place] Nucleated RBC/100 WBC (Bld) [Ratio] 0.0 /100 WBC Normal [facility] Comment on above: Order Comment: Speci men Type: BLOOD SPECIMENOrdering Facility: [facility] Address: [address] [place] [address] Performed By: #### 5 7021-8 ####[facility] HOSPITALFRANCOISEA [id number] [place] [address] [place] Platelet mean volume (Bld) [Entitic vol] 9.9 fL Normal 9.0-12.7 [facility] Comment on above: Order Comment: Speci men Type: BLOOD SPECIMENOrdering Facility: [facility] Address: [address] [place] [address] Performed By: #### 5 7021-8 ####[facility] [id number] [place] [address] [place] Platelets (Bld) [#/Vol] 320 10*3/uL Normal 150-400 [facility] Comment on above: Order Comment: Speci men Type: BLOOD SPECIMENOrdering Facility: [facility] Address: [address] [place] [address] Performed By: #### 5 7021-8 ####[facility] CENTERLIA [id number] [place] [address] [place] RBC (Bld) [#/Vol] 3.66 10*6/uL Low 3.90-5.20 [facility] Comment on above: Order Comment: Speci men Type: BLOOD SPECIMENOrdering Facility: [facility] Address: [address] [place] [address] Performed By: #### 5 7021-8 ####[facility] HOSPITALNCLI [id number] [place] [address] [place] WBC (Bld) [#/Vol] 12.20 10*3/uL High 3.70-11.00 [facility] Comment on above: Order Comment: Speci men Type: BLOOD SPECIMENOrdering Facility: [facility] Address: [address] [place] [address] Performed By: #### 5 7021-8 ####[facility] HOSPITALCARYLLIWinston [id number] [place] [address] [place] Comprehensive metabolic 2000 panelon 03-25-2025 Albumin [Mass/Vol] 3.5 g/dL Low 3.9-4.9 [facility] Comment on above: Order Comment: Speci men Type: BLOOD SPECIMENOrdering Facility: [facility] Address: [address] [place] [address] Performed By: #### 2 4323-8, 308-1 ####[facility] HOSPITALCARYLWinston [id number] [place] [address] [place] ALP [Catalytic activity/Vol] 103 U/L Normal 34-123 [facility] Comment on above: Order Comment: Speci men Type: BLOOD SPECIMENOrdering Facility: [facility] Address: [address] [place] [address] Performed By: #### 2 4323-8, 3084-1 ####[facility]ENTERWCARYLLIA [id number] [place] [address] [place] ALT [Catalytic activity/Vol] 9 U/L Normal 7-38 [facility] Comment on above: Order Comment: Speci men Type: BLOOD SPECIMENOrdering Facility: [facility] Address: [address] [place] [address] Performed By: #### 2 4323-8, 3084-1 ####[facility] HOSPITALCARYLLIA [id number] [place] [address] [place] Anion gap [Moles/Vol] 11 mmol/L Normal 8-15 [facility] Comment on above: Order Comment: Speci men Type: BLOOD SPECIMENOrdering Facility: [facility] Address: [address] [place] [address] Performed By: #### 2 4323-8, 3083- ####[facility] CENTERWNCLIA [id number] [place] [address] [place] AST [Catalytic activity/Vol] 8 U/L Low 13-35 [facility] Comment on above: Order Comment: Speci men Type: BLOOD SPECIMENOrdering Facility: [facility] Address: [address] [place] [address] Performed By: #### 2 4323-8, 3083-10 ####[facility] WESTWinston [id number] [place] [address] [place] Bilirubin [Mass/Vol] mg/dL Low 0.2-1.3 [facility] Comment on above: Order Comment: Speci men Type: BLOOD SPECIMENOrdering Facility: [facility] Address: [address] [place] [address] Performed By: #### 2 4323-8, 3083-10 ####[facility] CENTERRYAN [id number] [place] [address] [place] Calcium [Mass/Vol] 9.5 mg/dL Normal 8.5-10.2 [facility] Comment on above: Order Comment: Speci men Type: BLOOD SPECIMENOrdering Facility: [facility] Address: [address] [place] [address] Performed By: #### 2 4323-8, 3083-10 ####[facility] HOSPITALNCLIA [id number] [place] [address] [place] Chloride [Moles/Vol] 102 mmol/L Normal 98-107 [facility] Comment on above: Order Comment: Speci men Type: BLOOD SPECIMENOrdering Facility: [facility] Address: [address] [place] [address] Performed By: #### 2 4323-8, 3083-10 ####[facility] DAYNEVIVIANA [id number] [place] [address] [place] CO2 [Moles/Vol] 21 mmol/L Low 22-30 [facility] Comment on above: Order Comment: Speci men Type: BLOOD SPECIMENOrdering Facility: [facility] Address: [address] [place] [address] Performed By: #### 2 4323-8, 3083-10 ####[facility]OSPITALNCLIA [id number] [place] [address] [place] Creatinine [Mass/Vol] 0.49 mg/dL Low 0.58-0.96 [facility] Comment on above: Order Comment: Speci men Type: BLOOD SPECIMENOrdering Facility: [facility] Address: [address] [place] [address] Performed By: #### 2 4323-8, 3083-10 ####[facility] CENTERLIA [id number] [address] [facility] Creatinine and Glomerular filtration rate.predicted panel (S/P/Bld) 131 mL/min/1.73m??? Normal >=60 [facility] Comment on above: Order Comment: Speci men Type: BLOOD SPECIMENOrdering Facility: [facility] Address: [address] [place] [address] Result Comment: Fabby mated Glomerular Filtration Rate (eGFR) is calculated using the 2020 CKD-EPI creatinine equation. This equation utilizes serum creatinine, sex, and age as parameters. The creatinine assay has traceable calibration to isotope dilution-mass spectrometry. Refer to KDIGO guidelines for clinical interpretation. In patients with unstable renal function, e.g. those with acute kidney injury, the eGFR may not accurately reflect actual GFR. Performed By: #### 2 4323-8, 3083-10 ####[facility] MOIWNCLIA [id number] [place] [address] [place] Glucose [Mass/Vol] 195 mg/dL High 74-99 [facility] Comment on above: Order Comment: Speci men Type: BLOOD SPECIMENOrdering Facility: [facility] Address: [address] [place] [address] Result Comment: The [place] Diabetes Association (ADA) provides guidance for cutoff values for fasting glucose and random glucose. The ADA defines fasting as no caloric intake for at least 8 hours. Fasting plasma glucose results between 100 to 125 mg/dL indicate increased risk for diabetes (prediabetes). Fasting plasma glucose results greater than or equal to 126 mg/dL meet the criteria for diagnosis of diabetes. In the absence of unequivocal hyperglycemia, results should be confirmed by repeat testing. In a patient with classic symptoms of hyperglycemia or hyperglycemic crisis, random plasma glucose results greater than or equal to 200 mg/dL meet the criteria for diagnosis of diabetes. Reference: Standards of Medical Care in Diabetes 2016, [place] Diabetes Association. Diabetes Care. 2016.39(Suppl 1). Performed By: #### 2 4323-8, 3083- ####[facility] HOSPITALMOMO [id number] [place] [address] [place] Potassium [Moles/Vol] 3.2 mmol/L Low 3.7-5.1 [facility] Comment on above: Order Comment: Speci men Type: BLOOD SPECIMENOrdering Facility: [facility] Address: [address] [place] [address] Performed By: #### 2 4323-8, 3083-10 ####[facility] CENTERLIA [id number] [place] [address] [place] Protein [Mass/Vol] 6.7 g/dL Normal 6.3-8.0 [facility] Comment on above: Order Comment: Speci men Type: BLOOD SPECIMENOrdering Facility: [facility] Address: [address] [place] [address] Performed By: #### 2 4323-8, 3083- ####[facility] HOSPITALNCLIA [id number] [place] [address] [place] Sodium [Moles/Vol] 134 mmol/L Low 136-144 [facility] Comment on above: Order Comment: Speci men Type: BLOOD SPECIMENOrdering Facility: [facility] Address: [address] [place] [address] Performed By: #### 2 4323-8, 3083- ####[facility] [id number] [place] [address] [place] Urea nitrogen [Mass/Vol] 5 mg/dL Low 7-21 [facility] Comment on above: Order Comment: Speci men Type: BLOOD SPECIMENOrdering Facility: [facility] Address: [address] [place] [address] Performed By: #### 2 4323-8, 3083-10 ####[facility] CENTERLIA [id number] [place] [address] [place] GESTATIONAL GLUCOSE SCREEN, 1-HOUR, 50 GRAM, NON-FASTINGon 03-25-2025 Glucose [Mass/Vol] 193 mg/dL High 74-134 [facility] Comment on above: Order Comment: Speci men Type: BLOOD SPECIMEN [facility] Address: [address] [place] [address] Result Comment: [facility] Congress of Obstetricians and Gynecologists (Zackery/Ellen) guidelines state a gestational diabetes mellitus positive screen is made, in women not previously diagnosed with overt diabetes, when the 1 hr plasma glucose level is equal to or above 140 mg/dL. The [facility] [employer] and [facility] [place] recommends a 135 mg/dL cutoff. Performed By: #### 1 6128-1 #### [facility] CLIA [id number] [address] [place], [place] [address] [address] [place] Prot/Creat Uron 03-25-2025 Protein/Creatinine (U) [Mass ratio] mg/g High <0.15 [facility] Comment on above: Order Comment: Speci men Type: URINE SPECIMENOrdering Facility: [facility] Address: [address] [place] [address] Result Comment: Adul t Proteinuria Categories: <0.15 mg/mg is considered normal to mildly increased 0.15 - 0.50 mg/mg is considered moderately increased >0.50 mg/mg is considered severely increased KDIGO. (2013). KDIGO 2012 Clinical Practice Guideline for the Evaluation and Management of Chronic Kidney Disease. Official Journal of the International Society of Nephrology, 3(1), 1-150. Performed By: #### 2 890-2 ####[facility] [id number] [place] [address] [place] Protein/Creatinine (U) [Mass ratio]on 03-25-2025 Creatinine (U) [Mass/Vol] 6.8 mg/dL Low 20.0-300.0 [facility] Comment on above: Order Comment: Speci men Type: URINE SPECIMENOrdering Facility: [facility] Address: [address] [place] [address] Performed By: #### 2 890-2 ####[facility] [id number] [place] [address] [place] Protein (U) [Mass/Vol] mg/dL Normal 0-20 [facility] Comment on above: Order Comment: Speci men Type: URINE SPECIMENOrdering Facility: [facility] Address: [address] [place] [address] Performed By: #### 2 890-2 ####[facility] [id number] [place] [address] [place] Reagin and Treponema pallidu m IgG and IgM [Interp]on 03-25-2025 T. pallidum IgG+IgM IA Ql (S) Non-Reactive Normal Nonreactive [facility] Comment on above: Order Comment: Speci men Type: BLOOD SPECIMENOrdering Facility: [facility] Address: [address] [place] [address] Performed By: #### 7 3752-8 ####[facility] LABCLIA [id number] [place] [address] [place] Reagin+T pallidum IgG+IgM Se rPl-Impon 03-25-2025 Reagin and Treponema pallidum IgG and IgM [Interp] Cannot exclude recent Treponemal infection if specimen collected within 7-10 days after appearance of suspect lesions or 2-3 weeks after an exposure. Clinical correlation is required. Normal [facility] Comment on above: Order Comment: Speci men Type: BLOOD SPECIMENOrdering Facility: [facility] Address: [address] [place] [address] Performed By: #### 7 3752-8 ####[facility] LABCLIA [id number] [place] [address] [place] Urate SerPl-ncon Urate [Mass/Vol] 3.5 mg/dL Normal 2.5-6.6 [facility] Comment on above: Order Comment: Speci men Type: BLOOD SPECIMENOrdering Facility: [facility] Address: [address] [place] [address] Performed By: #### 2 4323-8, 3084-1 ####[facility] [id number] [place] [address] [place] CNPNon 03-18-2025 CNPN Telephone (OBGYWM) MILLIE WATKINS ([id number]) 1995 F Date Time Provider Department 03/18/25 IRENE MC During your visit today, we recorded the following information about you: Lali Aguiar RN 03/18/2025 12:26 PM Signed 27w3d Patient previously sent [employer] message on 03/16 regarding dizzy episode she had. The dizziness has subsided, but since then she has felt off. She has had a headache for two days and just feels like she is in a fog. No vision changes or RUQ pain. Checked her BP at pharmacy and it was elevated 130/90. No available openings this afternoon. Please advise. JOHN Tineo Jessica, APRN.CNM 03/18/2025 1:34 PM Signed Please have patient come in at 3:30 or sooner if she can and I will fit her in. Thank you, Irene Mc APRN.[facility] Lali Aguiar RN 03/18/2025 2:06 PM Signed Patient notified and scheduled for today. Lali Aguiar RN Allergies As of Date: 03/18/2025 Noted Allergy Reaction AMOXICILLIN 01/09/2017 2 - Rash ZYTHROMAX (AZITHROMYCIN) 01/09/2017 2 - Rash Date Reviewed: 02/25/2025 Reviewed by: Marlene Jimenez APRN.PERFORMANCE TESTER - Fully Assessed Reason for Visit: Question (OB Question) [4752] Prescriptions as of 03/18/2025 - famotidine (PEPCID) 20 mg tablet Take 1 tablet by mouth two times a day. - aspirin, enteric coated (ECOTRIN LOW STRENGTH) 81 mg EC tablet Take 1 tablet by mouth once daily. - no115/iron/folic acid ( 19 ORAL) Take by mouth. Problem List As Of Date 03/18/2025 Noted Resolved PCOS (polycystic ovarian syndrome) [E28.2] 05/06/2024 Elevated LDL cholesterol level [E78.00] 05/06/2024 Vitamin D deficiency [E55.9] 05/06/2024 Ocular migraine [G43.109] 05/06/2024 Family history of genetic disorder [Z84.89] 10/31/2024 Obesity affecting in second trimester*10/31/2024 Heartburn during in first trimester [*10/31/2024 History of smoking [Z87.891] 10/31/2024 History of ectopic [Z87.59] 10/31/2024 Rubella non-immune status, antepartum [O09.899,*11/19/2024 Supervision of high risk in second tr*01/28/2025 Marginal insertion of umbilical cord affecting *01/28/2025 Encounter Status:Closed by LALI AGUIAR on 03/18/25 Normal [facility] Examination level ultrasound on 01-28-2025 Indication Detailed anatomic survey Maternal obesity, BMI >30 Impression The patient is referred for a detailed anatomic survey. - Single, live, intrauterine . - biometry is consistent with the established gestational age. - No malformations were visualized on a complete detailed anatomic survey. - The amniotic fluid volume is normal amount. - The placenta is anterior, fundal. The PCI appears marginal. - The Transvaginal cervical length measures 39.4 mm with no evidence of funneling or other dynamic changes. - Not all structural malformations can be detected by ultrasound examination. Recommendations Growth ultrasound at 32 weeks Maternal Assessment Height 163 cm Height (ft) 5 ft Height (in) 4 in Physical Exam Initial weight (lb) 194 lb Initial BMI 33.30 kg/m Maternal assessment other: 3 Para 0 REMOTE READ Method Transabdominal and transvaginal ultrasound examination. View: Suboptimal view: limited by maternal body habitus Alexandre . Number of fetuses: 1 Dating LMP on: 09/07/2024 GA by LMP 20 w + 3 d VIRGIL by LMP: 06/14/2025 GA by prior assessment 20 w + 3 d VIRGIL by prior assessment: 06/14/2025 Ultrasound examination on: 01/28/2025 GA by U/S based upon: AC, BPD, Femur, HC GA by U/S 21 w + 2 d VIRGIL by U/S: 06/08/2025 Assigned: based on stated VIRGIL, selected on 01/28/2025 Assigned GA 20 w + 3 d Assigned VIRGIL: 06/14/2025 General Evaluation Cardiac activity present. FHR 125 bpm. movements: present. Presentation: breech Placenta: Placental site: anterior, fundal Umbilical cord: Cord vessels: 3 vessel cord. Insertion site: marginal insertion, fundal Amniotic fluid: Amount of AF: normal amount. MVP 7.8 cm Growth Overview Exam date GA BPD (mm) HC (mm) AC (mm) FL (mm) HL (mm) EFW (g) 01/28/2025 20w 3d 50.4 81% 189 73% 172.1 91% 33.2 63% 32.9 75% 417 88% Biometry Standard BPD 50.4 mm 21w 2d 81% Hadlock OFD 67.5 mm 21w 1d 95% Nicolaides HC 189.0 mm 21w 1d 73% Christian Cerebellum tr 21.0 mm 20w 0d 54% Hill Nuchal fold 3.6 mm AC 172.1 mm 22w 1d 91% Hadlock Femur 33.2 mm 20w 4d 63% Christian Humerus 32.9 mm 21w 1d 75% Christian EFW 417 g 21w 2d 88% Hadlock EFW (lb) 0 lb EFW (oz) 15 oz EFW by: Hadlock (HC-AC-FL) Extended Table Keeper 5.5 mm CM 6.0 mm 77% Nicolaides Extremities / Bony Struc FL / HC 0.18 19% Hadlock Other Structures FHR 125 bpm Anatomy Cranium: normal Lateral ventricles: normal Choroid plexus: normal Midline falx: normal Cavum septi pellucidi: normal Cerebellum: normal Cisterna magna: normal Head / Neck Vermis: normal Neck: normal Nuchal fold: normal Lips: normal Profile: normal Nose: normal Face Maxilla: normal Mandible: normal Orbits: normal Lens: normal 4-chamber view: normal RVOT view: normal LVOT view: normal 3-vessel view: normal 5-yqejxw-zrrlhea view: normal Heart / Thorax Situs: situs solitus (normal) Aortic arch view: normal SVC: normal IVC: normal Cardiac axis: normal Rt lung: normal Lt lung: normal Diaphragm: normal Cord insertion: normal Stomach: normal Kidneys: normal Bladder: normal Genitals: normal Abdomen Abdom. wall: normal Cervical spine: normal Thoracic spine: normal Lumbar spine: normal Sacral spine: normal Arms: normal Legs: normal Rt upper arm: normal Rt forearm: normal Rt hand: normal Rt fingers: normal Lt upper arm: normal Lt forearm: normal Lt hand: normal Lt fingers: normal Rt upper leg: normal Rt lower leg: normal Rt foot: normal Lt upper leg: normal Lt lower leg: normal Lt foot: normal sex: male Wants to know sex: yes Maternal Structures Uterus / Cervix Uterus: Visualized Cervix: Visualized Approach: Transvaginal Cervical length 39.4 mm Ovaries / Tubes / Adnexa Rt ovary: Visualized Lt ovary: Visualized Performed By: Minda Mireles RDMS, RVT Read By: Kendra Bryant M.D. MATERNAL MEDICINE [facility] Radiology Study observation (narrative) [facility] CNCOon 01-21-2025 CNCO Letter Text Normal [facility] Examination level ultrasound on 12-03-2024 Indication First trimester anatomic survey Maternal obesity, BMI >30 Impression REMOTE READ The patient is referred for a first trimester anatomy scan including nuchal translucency measurement as clinically indicated. - Single, live, intrauterine . - Secretary rump length measurement is consistent with the established gestational age. - A qualitative screen of the nuchal translucency and other anatomic structures was unremarkable on incomplete first trimester anatomic assessment. - Not all structural malformations can be detected by ultrasound examination. Maternal Structures: Right Ovary: Size 34 mm x 27 mm x 29 mm Left Ovary: Size 35 mm x 24 mm x 17 mm Recommendations - A standard anatomic survey at 16 weeks can be offered and a detailed exam at 20 weeks is recommended for increased risk. Maternal Assessment Height 163 cm Height (ft) 5 ft Height (in) 4 in Physical Exam Initial weight (lb) 194 lb Initial BMI 33.30 kg/m Maternal assessment other: 3 Para 0 Method Transabdominal ultrasound examination Alexandre . Number of fetuses: 1 Dating LMP on: 09/07/2024 GA by LMP 12 w + 3 d VIRGIL by LMP: 06/14/2025 GA by prior assessment 12 w + 3 d VIRGIL by prior assessment: 06/14/2025 Ultrasound examination on: 12/03/2024 GA by U/S based upon: CRL GA by U/S 12 w + 4 d VIRGIL by U/S: 06/13/2025 Assigned: based on stated VIRGIL, selected on 12/03/2024 Assigned GA 12 w + 3 d Assigned VIRGIL: 06/14/2025 General Evaluation Cardiac activity present Placenta: anterior Cord vessels: 3 vessel cord Amniotic fluid: normal amount Biometry Standard FHR 150 bpm CRL 61.0 mm 12w 4d 47% Hadlock First Trimester Anatomy Calvarium: normal Falx cerebri: normal Choroid plexus: normal Profile: normal Nasal bone: normal Retronasal triangle: normal Maxilla: normal Mandible: normal Nuchal translucency: Unremarkable Situs: normal Cardiac position: normal Cardiac axis: normal 4-chamber view: suboptimal 4-chamber view with color: suboptimal 2-zjadzb-qdpfgoq view: suboptimal Abdominal cord insertion: normal Stomach: normal Kidneys: suboptimal Bladder: normal Color doppler of perivesical umbilical arteries: normal Vertebral alignment: normal Arms: normal Hands: normal Legs: normal Feet: normal Maternal Structures Uterus / Cervix Uterus: Visualized Uterus length 161 mm Uterus width 89 mm Uterus height 76 mm Uterus Vol 570.1 cm Ovaries / Tubes / Adnexa Rt ovary: Visualized Rt ovary D1 34 mm Rt ovary D2 27 mm Rt ovary D3 29 mm Rt ovary Vol 14.1 cm Lt ovary: Visualized Lt ovary D1 35 mm Lt ovary D2 24 mm Lt ovary D3 17 mm Lt ovary Vol 7.5 cm Performed By: Minda Mireles RDMS, RVT Read By: Kendra Bryant M.D. MATERNAL MEDICINE [facility] Radiology Study observation (narrative) [facility] [place] Telephone ([employer]) MILLIE DELA CRUZ ([id number]) 1995 F Date Time Provider Department 11/24/24 LAQUITA CHINCHILLA During your visit today, we recorded the following information about you: Rickey Collins 11/24/2024 2:31 PM Signed Reached out to PT for more information on family history of Hirschsprung disease Explained to PT I was calling on behalf of the genetic counselor she is scheduled to meet with this Sunday, Laquita Chinchilla. Explained that I was inquiring about her referral and the family history of Hirschsprung disease noted. Confirmed that PT's partner has been clinically diagnosed with this disease, but has not received any genetic testing. PT explained that there are no other family members they are aware of who also have this diease. PT explained that her partners father is adopted so there is limited family history. PT explained that her partner will be out of town during the visit and asked me to ask Laquita if there is any further info she needs or preemptive questions she could ask her partner to prepare for the visit. Explained to PT I would relay this to Laquita and reach out via [facility] if there are any. PT appreciated the assistance and had no further questions. Rickey Aguilar Genetic Counseling Scrap Drop Operator Allergies As of Date: 11/24/2024 Noted Allergy Reaction AMOXICILLIN 01/09/2017 2 - Rash ZYTHROMAX (AZITHROMYCIN) 01/09/2017 2 - Rash Date Reviewed: 10/31/2024 Reviewed by: Marlene Jimenez APRN.PERFORMANCE TESTER - Fully Assessed Reason for Visit: Appointment [186] Cmt: Records Prescriptions as of 11/24/2024 - aspirin, enteric coated (ECOTRIN LOW STRENGTH) 81 mg EC tablet Take 1 tablet by mouth once daily. - metFORMIN (GLUCOPHAGE) 1,000 mg tablet Take 1 tablet by mouth two times a day with meals. - Magnesium Oxide 420 mg tab Take 1 tablet by mouth once daily. - pyridoxine, vitamin B6, (VITAMIN B-6) 50 mg tablet Take 1 tablet by mouth two times a day. - no115/iron/folic acid ( 19 ORAL) Take by mouth. Problem List As Of Date 11/24/2024 Noted Resolved PCOS (polycystic ovarian syndrome) [E28.2] 05/06/2024 Elevated LDL cholesterol level [E78.00] 05/06/2024 Vitamin D deficiency [E55.9] 05/06/2024 Ocular migraine [G43.109] 05/06/2024 Family history of genetic disorder [Z84.89] 10/31/2024 Encounter for supervision of high risk pregnanc*10/31/2024 Obesity affecting in first trimester *10/31/2024 Heartburn during in first trimester [*10/31/2024 History of smoking [Z87.891] 10/31/2024 History of ectopic [Z87.59] 10/31/2024 Rubella non-immune status, antepartum [O09.899,*11/19/2024 Encounter Status:Closed by RICKEY COLLINS on 11/24/24 Normal [facility] B-HCG SerPl-[place]Cn[place] 5 [place] [address].0 m[IU]/mL High <5.0 [facility] Comment on above: Order Comment: Speci men Type: BLOOD SPECIMENOrdering Facility: [facility] Address: [address] [place] [address] Result Comment: BROCK TITATIVE HCG NORMAL RANGES Weeks of Gestation (Weeks Since LMP) 3 Weeks (5.8-71.2 mIU/mL) 4 Weeks (9.5-750 mIU/mL) 5 Weeks (217-7138 mIU/mL) 6 Weeks (158-93804 mIU/mL) 7 Weeks (3697-274750 mIU/mL) 8 Weeks (13530-627239 mIU/mL) 9 Weeks (29738-221150 mIU/mL) 10 Weeks (24052-823044 mIU/mL) 12 Weeks (73126-495279 mIU/mL) Referenced to 4th IS of [facility] Performed By: #### 2 1198-7 ####[facility] LABCLIA [id number] [place] [address] [place] CARRIER SCREEN, STANDARDon 0 11-17-2024 CARRIER SCREEN RESULTS View results in Scanned Documents link when available. Normal [facility] Comment on above: Order Comment: Speci men Type: BLOOD SPECIMENOrdering Facility: [facility] Address: [address] [place] [address] Performed By: #### C RRS ####MYRIADCLIA [id number] [place] [address] CBC W Auto Differential pane l (Bld)on 11-17-2024 Basophils (Bld) [#/Vol] 0.03 10*3/uL Normal <0.11 [facility] Comment on above: Order Comment: Speci men Type: BLOOD SPECIMENOrdering Facility: [facility] Address: [address] [place] [address] Performed By: #### 5 7021-8 ####[facility] LABCLIA [id number] [place] [id number] [place] Basophils/100 WBC (Bld) 0.3 % Normal [facility] Comment on above: Order Comment: Speci men Type: BLOOD SPECIMENOrdering Facility: [facility] Address: [address] [place] [address] Performed By: #### 5 7021-8 ####[facility] LABCLIA [id number] [address] STATES OF [facility] Differential cell count method Nom (Bld) Auto Normal [facility] Comment on above: Order Comment: Speci men Type: BLOOD SPECIMENOrdering Facility: [facility] Address: [address] [place] [address] Performed By: #### 5 7021-8 ####[facility] LABIA [id number] [place] [address] [place] Eosinophils (Bld) [#/Vol] 0.11 10*3/uL Normal <0.46 [facility] Comment on above: Order Comment: Speci men Type: BLOOD SPECIMENOrdering Facility: [facility] Address: [address] [place] [address] Performed By: #### 5 7021-8 ####[facility] LABIA [id number] [place] [id number] [facility] Eosinophils/100 WBC (Bld) 1.1 % Normal [facility] Comment on above: Order Comment: Speci men Type: BLOOD SPECIMENOrdering Facility: [facility] Address: [address] [place] [address] Performed By: #### 5 7021-8 ####[facility] LABIA [id number] [place] [phone] [place] [facility] Erythrocyte distribution width (RBC) [Ratio] 12.6 % Normal 11.5-15.0 [facility] Comment on above: Order Comment: Speci men Type: BLOOD SPECIMENOrdering Facility: [facility] Address: [address] [place] [address] Performed By: #### 5 7021-8 ####[facility] LABIA [id number] [place] [id number] [place] Hematocrit (Bld) [Volume fraction] 37.7 % Normal 36.0-46.0 [facility] Comment on above: Order Comment: Speci men Type: BLOOD SPECIMENOrdering Facility: [facility] Address: [address] [place] [address] Performed By: #### 5 7021-8 ####[facility] [id number] [place] [phone] [place] Hemoglobin (Bld) [Mass/Vol] 13.0 g/dL Normal 11.5-15.5 [facility] Comment on above: Order Comment: Speci men Type: BLOOD SPECIMENOrdering Facility: [facility] Address: [address] [place] [address] Performed By: #### 5 7021-8 ####[facility] [id number] [place] [id number] [place] Immature granulocytes (Bld) [#/Vol] 0.03 10*3/uL Normal <0.10 [facility] Comment on above: Order Comment: Speci men Type: BLOOD SPECIMENOrdering Facility: [facility] Address: [address] [place] [address] Performed By: #### 5 7021-8 ####[facility] LABIA [id number] [place] [phone] [place] Immature granulocytes/100 WBC (Bld) 0.3 % Normal [facility] Comment on above: Order Comment: Speci men Type: BLOOD SPECIMENOrdering Facility: [facility] Address: [address] [place] [address] Performed By: #### 5 7021-8 ####[facility] [id number] [place] [phone] [place] Lymphocytes (Bld) [#/Vol] 2.27 10*3/uL Normal 1.00-4.00 [facility] Comment on above: Order Comment: Speci men Type: BLOOD SPECIMENOrdering Facility: [facility] Address: [address] [place] [address] Performed By: #### 5 7021-8 ####[facility] LABIA [id number] [place] [phone] [place] OF [facility] Lymphocytes/100 WBC (Bld) 22.6 % Normal [facility] Comment on above: Order Comment: Speci men Type: BLOOD SPECIMENOrdering Facility: [facility] Address: [address] [place] [address] Performed By: #### 5 7021-8 ####[facility] LABIA [id number] [place] [phone] [place] MCH (RBC) [Entitic mass] 31.5 pg Normal 26.0-34.0 [facility] Comment on above: Order Comment: Speci men Type: BLOOD SPECIMENOrdering Facility: [facility] Address: [address] [place] [address] Performed By: #### 5 7021-8 ####[facility] [id number] [place] [phone] [place] MCHC (RBC) [Mass/Vol] 34.5 g/dL Normal 30.5-36.0 [facility] Comment on above: Order Comment: Speci men Type: BLOOD SPECIMENOrdering Facility: [facility] Address: [address] [place] [address] Performed By: #### 5 7021-8 ####[facility] LABIA [id number] [place] [phone] [place] MCV (RBC) [Entitic vol] 91.3 fL Normal 80.0-100.[address] [facility] Comment on above: Order Comment: Speci men Type: BLOOD SPECIMENOrdering Facility: [facility] Address: [address] [place] [address] Performed By: #### 5 7021-8 ####[facility] LABCLIA [id number] [place] [address] [place] Monocytes (Bld) [#/Vol] 0.51 10*3/uL Normal <0.87 [facility] Comment on above: Order Comment: Speci men Type: BLOOD SPECIMENOrdering Facility: [facility] Address: [address] [place] [address] Performed By: #### 5 7021-8 ####[facility] LABCLIA [id number] [place] [id number] [place] Monocytes/100 WBC (Bld) 5.1 % Normal [facility] Comment on above: Order Comment: Speci men Type: BLOOD SPECIMENOrdering Facility: [facility] Address: [address] [place] [address] Performed By: #### 5 7021-8 ####[facility] LABIA [id number] [place] [phone] [place] Neutrophils (Bld) [#/Vol] 7.10 10*3/uL Normal 1.45-7.50 [facility] Comment on above: Order Comment: Speci men Type: BLOOD SPECIMENOrdering Facility: [facility] Address: [address] [place] [address] Performed By: #### 5 7021-8 ####[facility] LABIA [id number] [place] [phone] [place] Neutrophils/100 WBC (Bld) 70.6 % Normal [facility] Comment on above: Order Comment: Speci men Type: BLOOD SPECIMENOrdering Facility: [facility] Address: [address] [place] [address] Performed By: #### 5 7021-8 ####[facility] LABIA [id number] [place] [address] [place] Nucleated RBC (Bld) [#/Vol] 10*3/uL Normal <0.01 [facility] Comment on above: Order Comment: Speci men Type: BLOOD SPECIMENOrdering Facility: [facility] Address: [address] [place] [address] Performed By: #### 5 7021-8 ####[facility] LABIA [id number] [place] [phone] [place] Nucleated RBC/100 WBC (Bld) [Ratio] 0.0 /100 WBC Normal [facility] Comment on above: Order Comment: Speci men Type: BLOOD SPECIMENOrdering Facility: [facility] Address: [address] [place] [address] Performed By: #### 5 7021-8 ####[facility] [id number] [place] [phone] [place] Platelet mean volume (Bld) [Entitic vol] 9.5 fL Normal 9.0-12.7 [facility] Comment on above: Order Comment: Speci men Type: BLOOD SPECIMENOrdering Facility: [facility] Address: [address] [place] [address] Performed By: #### 5 7021-8 ####[facility] [id number] [place] [phone] [place] Platelets (Bld) [#/Vol] 288 10*3/uL Normal 150-400 [facility] Comment on above: Order Comment: Speci men Type: BLOOD SPECIMENOrdering Facility: [facility] Address: [address] [place] [address] Performed By: #### 5 7021-8 ####[facility] LABIA [id number] [place] [address] [place] RBC (Bld) [#/Vol] 4.13 10*6/uL Normal 3.90-5.20 [facility] Comment on above: Order Comment: Speci men Type: BLOOD SPECIMENOrdering Facility: [facility] Address: [address] [place] [address] Performed By: #### 5 7021-8 ####[facility] LABIA [id number] [place] [address] [place] WBC (Bld) [#/Vol] 10.05 10*3/uL Normal 3.70-11.00 [facility] Comment on above: Order Comment: Speci men Type: BLOOD SPECIMENOrdering Facility: [facility] Address: [address] [place] [address] Performed By: #### 5 7021-8 ####[facility] LABCLIA [id number] [place] [id number] [place] HBV surface Ag Ser Qlon 11-01 HBV surface Ag Ql (S) Negative Normal Negative [facility] Comment on above: Order Comment: Speci men Type: BLOOD SPECIMENOrdering Facility: [facility] Address: [address] [place] [address] Performed By: #### 3 1201-7, 5195-3, 32369-6 ####[facility] LABCLIA [id number] [place] [address] [place] HCV Ab Ser Qlon 11-17-2024 HCV Ab Ql (S) Negative Normal Negative [facility] Comment on above: Order Comment: Speci men Type: BLOOD SPECIMEN [facility] Address: [address] [place] [address] Result Comment: The result suggests no evidence of active infection with Hepatitis C virus. Should recent infection be suspected, repeat testing may be considered 4-6 weeks after this draw. Performed By: #### 1 6128-1 #### [facility] CLIA [id number] [address] [place] [address] [place] HIV 1+2 Ab IA Qlon HIV 1 and 2 Ab IA.rapid Nom (S/P/Bld) Normal [facility] Comment on above: Order Comment: Speci men Type: BLOOD SPECIMENOrdering Facility: [facility] Address: [address] [place] [address] Result Comment: Test not indicated. Performed By: #### 3 1201-7, 5195-3, 70544-1 ####[facility] LABIA [id number] [place] [address] [place] HIV 1+2 Ab+HIV1 p24 Ag IA Ql Non-Reactive Normal Nonreactive [facility] Comment on above: Order Comment: Speci men Type: BLOOD SPECIMENOrdering Facility: [facility] Address: [address] [place] [address] Performed By: #### 3 1201-7, 5195-3, 42099-1 ####[facility] LABIA [id number] [place] [address] [place] HIV immunoassay testing algorithm interpretation (S/P/Bld) [Interp] Normal [facility] Comment on above: Order Comment: Speci men Type: BLOOD SPECIMENOrdering Facility: [facility] Address: [address] [place] [address] Result Comment: No e vidence of HIV-1 or HIV-2 infection. Should recent infection be suspected, repeat testing may be considered 2-3 weeks after this draw. [place] Rev. Code 3701.243(E): This information has been disclosed to you from confidential records protected from disclosure by state law. ???You shall make no further disclosure of this information without the specific, written, and informed release of the individual to whom it pertains or as otherwise permitted by state law. A general authorization for the release of medical or other information is not sufficient for the purpose of the release of HIV test results or diagnoses. Performed By: #### 3 1201-7, 5195-3, 60857-2 ####[facility] LABIA [id number] [place] [address] [place] HbA1c (Bld)on 11-17-2024 Average glucose Estimated from glycated hemoglobin (Bld) [Mass/Vol] 103 mg/dL Normal [facility] Comment on above: Order Comment: Speci men Type: BLOOD SPECIMENOrdering Facility: [facility] Address: [address] [place] [address] Result Comment: eAG: (Estimated average glucose) is a calculated value from HgbA1c and is footwear sales representative of the average blood glucose level in the last 2-3 month period. Performed By: #### 5 5454-3 ####[facility] LABCLIA [id number] [place] [address] [place] HbA1c (Bld) [Mass fraction] 5.2 % Normal 4.3-5.6 [facility] Comment on above: Order Comment: Quita valentin Type: BLOOD SPECIMENOrdering Facility: [facility] Address: [address] [place] [address] Result Comment: [place] Diabetes Association guidelines indicate that patients with HgbA1c in the range 5.7-6.4% are at increased risk for development of diabetes, and intervention by lifestyle modification may be beneficial. HgbA1c greater or equal to 6.5% is considered diagnostic of diabetes. Performed By: #### 5 5454-3 ####[facility] LABCLIA [id number] [place] [address] [place] [id number] PLUSon 11-17-2024 Cell-free DNA./Cell-free DNA.total Dosage of chromosome-specific cfDNA (cfDNA) [Molar fraction] 8% Normal [facility] Comment on above: Order Comment: Quita valentin Type: BLOOD SPECIMEN [facility] Address: [address] [place] [address] Performed By: #### M AT21 #### [facility] CLIA [id number] [address] [place] [address] Chr 13+18+21+X+Y aneuploidy Dosage of chromosome-specific cfDNA Ql (cfDNA) Negative Normal [facility] Comment on above: Order Comment: Quita valentin Type: BLOOD SPECIMEN [facility] Address: [address] [place] [address] Performed By: #### M AT21 #### [facility] CLIA [id number] [address] [place] [address] Chr 21 trisomy Dosage of chromosome-specific cfDNA Ql (cfDNA) Negative Normal [facility] Comment on above: Order Comment: Speci men Type: BLOOD SPECIMEN [facility] Address: [address] [place] [address] Performed By: #### M AT21 #### [facility] CLIA [id number] [address] [place] [address] Chr X and Y aneuploidy risk Sequencing Ql (cfDNA) [Interp] Not detected Normal [facility] Comment on above: Order Comment: Speci men Type: BLOOD SPECIMEN [facility] Address: [address] [place] [address] Result Comment: Not Detected Not Detected Performed By: #### M AT21 #### [facility] CLIA [id number] [address] [place] [address] Citation Brian (Reference lab test) Comment Normal [facility] Comment on above: Order Comment: Speci men Type: BLOOD SPECIMEN [facility] Address: [address] [place] [address] Result Comment: 1. P jere HUNTER, et al. Lalita Med. 2012;14(3):296-305. 2. Иван ARRIAGA, et al. Prenat Diag. 2013;33(6):591-597. 3. Rei C, et al. Clin Chem. 2015 Apr;61(4):608-616. 4. Ed HUNTER, et al. Lalita Med. 2011;13(11):913-920. 5. ACOG/SMFM Practice Bulletin No. 226, Jul 2020. Performed By: #### M AT21 #### [facility] CLIA [id number] [address] [place] [address] Gestational age Estimated from conception date Alexandre Normal [facility] Comment on above: Order Comment: Speci men Type: BLOOD SPECIMEN [facility] Address: [address] [place] [address] Performed By: #### M AT21 #### [facility] CLIA [id number] [address] [place] [address] GESTATIONALAGE AGE > OR = 9W Yes Normal [facility] Comment on above: Order Comment: Quita valentin Type: BLOOD SPECIMEN [facility] Address: [address] [place] [address] Performed By: #### M AT21 #### [facility] CLIA [id number] [address] [place] [address] Laboratory comment Brian (Report) Comment Normal [facility] Comment on above: Order Comment: Quita valentin Type: BLOOD SPECIMEN [facility] Address: [address] [place] [address] Result Comment: The MaterniT(R) 21 PLUS laboratory-developed test (LDT) analyzes circulating cell-free DNA from a maternal blood sample. This test is used for screening purposes and not diagnostic. Clinical correlation is recommended. Validation data on twin pregnancies is limited and the ability of this test to detect aneuploidy in higher multiple gestations has not yet been validated. Performed By: #### M AT21 #### [facility] CLIA [id number] [address] [place] [id number] director drug name Nom (Provider) Comment Normal [facility] Comment on above: Order Comment: Quita valentin Type: BLOOD SPECIMEN [facility] Address: [address] [place] [address] Result Comment: This specimen showed an expected representation of chromosome 21, 18 and 13 material. Clinical correlation is suggested. Comment Hussein Vazquez MD, PhD, Director, [employer] Performed By: #### M AT21 #### [facility] CLIA [id number] [address] [place] [id number] LIMITATIONS OF THE TEST Comment Normal [facility] Comment on above: Order Comment: Quita valentin Type: BLOOD SPECIMEN [facility] Address: [address] [place] [address] Result Comment: Arianna kwon the results of these tests are highly reliable, discordant results, including inaccurate sex prediction, may occur due to placental, maternal, or mosaicism or neoplasm; vanishing twin; prior maternal organ transplant; or other causes. These tests are screening tests and not diagnostic; they do not replace the accuracy and precision of diagnosis with CVS or amniocentesis. A patient with a positive test result should be referred for genetic counseling and offered invasive diagnosis for confirmation of test results.[5] The results of this testing, including the benefits and limitations, should be discussed with a qualified healthcare provider. management decisions, including termination of the , should not be based on the results of these tests alone. The healthcare provider is responsible for the use of this information in the management of their patient. Sex chromosomal aneuploidies are not reportable for known multiple gestations. A negative result does not ensure an unaffected nor does it exclude the possibility of other chromosomal abnormalities or defects which are not a part of these tests. An uninformative result may be reported, the causes of which may include, but are not limited to, insufficient sequencing coverage, noise or artifacts in the region, amplification or sequencing bias, or insufficient fraction. These tests are not intended to identify pregnancies at risk for neural tube defects or ventral wall defects. Testing for whole chromosome abnormalities (including sex chromosomes) and for subchromosomal abnormalities could lead to the potential discovery of both and maternal genomic abnormalities that could have major, minor, or no, clinical significance. Evaluating the significance of a positive or a non-reportable result may involve both invasive testing and additional studies on the mother. Such investigations may lead to a diagnosis of maternal chromosomal or subchromosomal abnormalities, which on occasion may be associated with benign or malignant maternal neoplasms. These tests may not accurately identify triploidy, balanced rearrangements, or the precise location of subchromosomal duplications or deletions; these may be detected by diagnosis with CVS or amniocentesis. The ability to report results may be impacted by maternal BMI, maternal weight, maternal systemic lupus erythematosus (SLE) and/or by certain pharmaceutical agents such as low molecular weight heparin (for example: Lovenox(R), Xaparin(R), Clexane(R) and Fragmin(R)). Performed By: #### M AT21 #### [facility] CLIA [id number] [address] [place] [address] Monosomy X risk Dosage of chromosome-specific cfDNA Ql (Plasma cell-free+WBC DNA) [Interp] Not detected Normal [facility] Comment on above: Order Comment: Speci men Type: BLOOD SPECIMEN [facility] Address: [address] [place] [address] Performed By: #### M AT21 #### [facility] CLIA [id number] [address] [place] [address] NEGATIVE PREDICTIVE VALUE Note Normal [facility] Comment on above: Order Comment: Quita valentin Type: BLOOD SPECIMEN [facility] Address: [address] [place] [address] Result Comment: The Negative Predictive Value (NPV) for trisomy 21, 18, and 13 is greater than 99%. The NPV for SCA and ESS cannot be calculated as SCA and ESS are only reported when an abnormality is detected. Performed By: #### M AT21 #### [facility] CLIA [id number] [address] [place] [address] PERFORMANCE CHARACTERISTICS Note Normal [facility] Comment on above: Order Comment: Quita valentin Type: BLOOD SPECIMEN [facility] Address: [address] [place] [address] Result Comment: ! Sex ! Accuracy: 99.4% ! ! ! ! Region (associated syndrome) ! Est. Sens# ! Est. Spec ! ! ! ! Trisomy 21 (Down Syndrome) ! 99.1% ! 99.9% ! ! ! ! Trisomy 18 (Fonseca Syndrome) ! >99.9% ! 99.6% ! ! ! ! Trisomy 13 ([place]u Syndrome) ! 91.7% ! 99.7% ! ! ! ! Sex Chromosome Aneuploidies## ! 96.2% ! 99.7% ! ! ! * As reported in [facility] nstd37 [https://www.ncbi.nlm.nih.gov/dbvar/studies/nstd37/ ] # Estimated Sensitivity. Sensitivity estimated across the observed size distribution of each syndrome [per [facility] nstd37] and across the range of fractions observed in routine clinical NIPT. Actual sensitivity can also be influenced by other factors such as the size of the event, total sequence counts, amplification bias, or sequence bias. ## Alexandre gestation only. Performed By: #### M AT21 #### [facility] CLIA [id number] [address] [place] [address] POSITIVE PREDICTIVE VALUE N/A Normal [facility] Comment on above: Order Comment: Speci men Type: BLOOD SPECIMEN [facility] Address: [address] [place] [address] Performed By: #### M AT21 #### [facility] CLIA [id number] [address] [place] [address] Reference Lab Test Method Comment Normal [facility] Comment on above: Order Comment: Speci men Type: BLOOD SPECIMEN [facility] Address: [address] [place] [id number] Result Comment: See Notes Circulating cell-free DNA was purified from the plasma component of maternal blood. The extracted DNA was then converted into a genomic DNA library for aneuploidy analysis of chromosomes 21, 18, and 13 via next generation sequencing.[1] Optional findings based on the test order include sex chromosome aneuploidy (SCA)[2], and enhanced sequencing series (ESS)[3], which will only be reported on as an additional finding when an abnormality is detected. SCA testing includes information on X and Y representation, while ESS testing includes deletions in selected regions (22q, 15q, 11q, 8q, 5p, 4p, 1p) and trisomy of chromosomes 16 and 22. Performed By: #### M AT21 #### [facility] CLIA [id number] [address] [place] [address] Service comment (Unsp spec) [Interp] Comment Normal [facility] Comment on above: Order Comment: Speci men Type: BLOOD SPECIMEN Ordering Facility: [facility] Address: [address] [place] [address] Result Comment: See Notes [employer] is a subsidiary of [employer], using the brand [employer]. This test was developed and its performance characteristics determined by [employer]. It has not been cleared or approved by the Food and Drug Administration. This laboratory is certified under the Clinical Laboratory Improvement Amendments (CLIA) as qualified to perform high complexity clinical laboratory testing and accredited by the [employer] ([employer]). If there is future clinical need for adding MaterniT GENOME testing, this specimen will be available until term. [facility] samples will not be retained beyond 60 days. [facility] patients will have to send a new sample for re-sequencing ([facility] Test Code: [id number]). Performed By: #### M AT21 #### [facility] CLIA [id number] [address] [place] [address] Sex Dosage of chromosome-specific cfDNA Nom (cfDNA) Comment Normal [facility] Comment on above: Order Comment: Speci men Type: BLOOD SPECIMEN Ordering Facility: [facility] Address: [address] [place] [address] Result Comment: Cons istent with Male Performed By: #### M AT21 #### [facility] CLIA [id number] [address] [place] [address] Test performance information Brian (Unsp spec) Comment Normal [facility] Comment on above: Order Comment: Speci barbie Type: BLOOD SPECIMEN Ordering Facility: [facility] Address: [address] [place] [address] Result Comment: The performance characteristics of the MaterniT(R) 21 PLUS laboratory-developed test (LDT) have been determined in a clinical validation study with women at increased risk for chromosomal aneuploidy.[1-4] Performed By: #### M AT21 #### [facility] CLIA [id number] [address] [place] [address] Trisomy 13 risk Dosage of chromosome-specific cfDNA Ql (cfDNA) [Interp] Negative Normal [facility] Comment on above: Order Comment: Reyesi barbie Type: BLOOD SPECIMEN Ordering Facility: [facility] Address: [address] [place] [address] Performed By: #### M AT21 #### [facility] CLIA [id number] [address] [place] [address] Trisomy 18 risk Dosage of chromosome-specific cfDNA Ql (Plasma cell-free+WBC DNA) [Interp] Negative Normal [facility] Comment on above: Order Comment: Quita valentin Type: BLOOD SPECIMEN Ordering Facility: [facility] Address: [address] [place] [address] Performed By: #### M AT21 #### [facility] CLIA [id number] [address] [place] [address] RUBELLA IGG ANTIBODYon 11-17 RUBELLA IGG AB, QUAL Negative Abnormal Positive [facility] Comment on above: Order Comment: Quita valentin Type: BLOOD SPECIMENOrdering Facility: [facility] Address: [address] [place] [address] Result Comment: The result suggests no history of Rubella vaccination or exposure to Rubella virus, however, some individuals with past history of Rubella vaccination may test negative using this test as immunity to Rubella virus wanes over time after vaccination. Please correlate with vaccination history if applicable. Performed By: #### R UBIGG ####[facility] [id number] [place] [address] [place] Reagin and Treponema pallidu m IgG and IgM [Interp]on 11-17-2024 T. pallidum IgG+IgM IA Ql (S) Non-Reactive Normal Nonreactive [facility] Comment on above: Order Comment: Speci men Type: BLOOD SPECIMENOrdering Facility: [facility] Address: [address] [place] [address] Performed By: #### 3 1201-7, 5195-3, 99015-1 ####[facility] [id number] [place] [address] [place] Reagin+T pallidum IgG+IgM Se rPl-Impon 11-17-2024 Reagin and Treponema pallidum IgG and IgM [Interp] Cannot exclude recent Treponemal infection if specimen collected within 7-10 days after appearance of suspect lesions or 2-3 weeks after an exposure. Clinical correlation is required. Normal [facility] Comment on above: Order Comment: Quita valentin Type: BLOOD SPECIMENOrdering Facility: [facility] Address: [address] [place] [address] Performed By: #### 3 1201-7, 5195-3, 29234-3 ####[facility] [id number] [place] [address] [place] TYPE + SCREEN PRENATALon ABO O Normal [facility] Comment on above: Order Comment: Reyesi barbie Type: BLOOD SPECIMEN Ordering Facility: [facility] Address: [address] [place] [address] Performed By: #### 1 6128-1 #### [facility] CLIA [id number] [address] [place] [address] [place] Rh Nom (Bld) Positive Normal [facility] Comment on above: Order Comment: Speci men Type: BLOOD SPECIMEN Ordering Facility: [facility] Address: [address] [place] [address] Performed By: #### 1 6128-1 #### [facility] CLIA [id number] [address] [place] [address] [place] TYPE AND SCREEN EXPIRATION 11/20/2024 23:59 Normal [facility] Comment on above: Order Comment: Speci men Type: BLOOD SPECIMEN Ordering Facility: [facility] Address: [address] [place] [address] Performed By: #### 1 6128-1 #### [facility] CLIA [id number] [address] [place] [address] [place] Bacteria Ur Culton Bacteria identified Cx Nom (U) CULTURE, URINE: No growth (<1,000 CFU/ml) Normal [facility] Comment on above: Performed By: #### 6 30-4 ####[facility] [id number] [place] [address] [place] C. trachomatis+N. gonorrhoea e DNA EDUARDO+probe Ql (Unsp spec)on 10-31-2024 C. trachomatis rRNA EDUARDO+probe Ql (Unsp spec) Not detected Normal Not detected [facility] Comment on above: Order Comment: Speci men Type: SWABOrdering Facility: [facility] Address: [address] [place] [address] Performed By: #### T RVAMP, 40107-4 ####[facility] [id number] [place] [address] [place] N. gonorrhoeae rRNA EDUARDO+probe Ql (Unsp spec) Not detected Normal Not detected [facility] Comment on above: Order Comment: Speci men Type: SWABOrdering Facility: [facility] Address: [address] [place] [address] Performed By: #### T RVAMP, 00355-1 ####[facility] [id number] [place] [address] [place] PAP TESTon 10-31-2024 ADEQUACY Satisfactory for interpretation. Normal [facility] Comment on above: Order Comment: Speci men Type: BLOOD SPECIMEN Ordering Facility: [facility] Address: [address] [place] [address] Performed By: #### 1 6128-1 #### [facility] CLIA [id number] [address] [place] [address] [place] CASE REPORT Normal [facility] Comment on above: Order Comment: Speci men Type: BLOOD SPECIMEN Ordering Facility: [facility] Address: [address] [place] [address] Result Comment: Gyne cologic Cytology Report Case: [id number] Authorizing Provider: Marlene Jimenez APRN.PERFORMANCE TESTER Collected: 10/31/2024 11:35 AM Ordering Location: OB/Gynecology Received: 10/31/2024 03:44 PM First Screen: Katie Calvillo, CT, ASCP Specimen: Pap Test, ThinPrep, Cervix Performed By: #### 1 6128-1 #### [facility] CLIA [id number] [address] [place] [address] [place] CLINICAL HISTORY, CYTOLOGY, LOOM TUNER (Indicate Weeks) Normal [facility] Comment on above: Order Comment: Speci men Type: BLOOD SPECIMEN Ordering Facility: [facility] Address: [address] [place] [address] Performed By: #### 1 6128-1 #### [facility] CLIA [id number] [address] [place] [address] [place] CYTOLOGY PAP OTHER INTERPRETATION Fungal organisms morphologically consistent with Blanca species. Normal [facility] Comment on above: Order Comment: Speci men Type: BLOOD SPECIMEN Ordering Facility: [facility] Address: [address] [place] [address] Performed By: #### 1 6128-1 #### [facility] CLIA [id number] [address] [place] [address] [place] FINAL PERFORMING LAB Normal [facility] Comment on above: Order Comment: Speci men Type: BLOOD SPECIMEN Ordering Facility: [facility] Address: [address] [place] [address] Result Comment: Tech nical component, excavator operator screening performed at [facility], [address] [place] [address] CLIA# [id number] Diagnostic interpretation performed at [facility], [address] [place], [place] [id number] CLIA# [id number] Machinist Apprentice: Hunter Mason M.D. Performed By: #### 1 6128-1 #### [facility] CLIA [id number] [address] [place] [address] [place] INTERPRETATION, CYTOLOGY, LOOM TUNER Normal [facility] Comment on above: Order Comment: Speci men Type: BLOOD SPECIMEN Ordering Facility: [facility] Address: [address] [place] [address] Result Comment: Nega tive for intraepithelial lesion or malignancy. Performed By: #### 1 6128-1 #### [facility] CLIA [id number] [address] [place] [address] [place] LMP 09/07/2024 Normal [facility] Comment on above: Order Comment: Speci men Type: BLOOD SPECIMEN Ordering Facility[facility] Address: [address] [place] [address] Performed By: #### 1 6128-1 #### [facility] CLIA [id number] [address] [place], [place] [address] [place] PAP DISCLAIMER COMMENT The Pap Smear is a screening test for cervical cancer. False negative results occur with all screening tests, emphasizing the need for rescreening at recommended intervals, and clinical correlation. Normal [facility] Comment on above: Order Comment: Speci men Type: BLOOD SPECIMEN Ordering Facility: [facility] Address: [address] [place] [address] Performed By: #### 1 6128-1 #### [facility] CLIA [id number] [address] [place] [address] [place] PAP SAFETY INTERN COMMENT This specimen has been analyzed by the ThinPrep Imaging System, an automated imaging and review system, which assists the laboratory in evaluating cells on ThinPrep Pap tests. Following automated imaging, selected rodriguez from every slide are reviewed by a excavator operator. Normal [facility] Comment on above: Order Comment: Speci men Type: BLOOD SPECIMEN Ordering Facility[facility] Address: [address] [place] [address] Performed By: #### 1 6128-1 #### [facility] CLIA [id number] [address] [place] [address] [place] TRICHOMONAS VAGINALIS NAATon 10-31-2024 T. vaginalis DNA EDUARDO+probe Ql (Unsp spec) Not detected Normal Not detected [facility] Comment on above: Order Comment: Speci men Type: SWABOrdering Facility: [facility] Address: [address] [place] [address] Performed By: #### T RVAMP, 89126-9 ####[facility] [id number] [place] [address] [place] Examination level ultrasound on 10-27-2024 Indication dating Impression Normal appearing anteverted uterus measuring 104 mm x 57 mm x 45 mm. The central endometrial complex contains a gestational sac with a yolk sac and pole measuring 9.1 mm. CRL is consistent with patient's LMP. heart activity is present. Right ovary contains a 22 x 15 x 22 mm corpus luteum cyst. Normal appearing left ovary. No adnexal masses identified. There is no free fluid visualized in the peritoneal cavity. Recommendations Live single intrauterine with VIRGIL 06/14/2025. Follow up as clinically indicated. Method 3D ultrasound examination, Color Doppler examination. Transabdominal and transvaginal ultrasound examination. View: Adequate visualization Alexandre . Number of embryos: 1 Dating LMP on: 09/07/2024 GA by LMP 6 w + 5 d VIRGIL by LMP: 06/14/2025 Ultrasound examination on: 10/24/2024 GA by U/S based upon: CRL GA by U/S 6 w + 6 d VIRGIL by U/S: 06/13/2025 Assigned: based on the LMP, selected on 10/16/2024 Assigned GA 6 w + 5 d Assigned VIRGIL: 06/14/2025 Assessment Gestational sac: visualized Location: intrauterine Yolk sac: visualized YS 3.3 mm 3% Grisolia Embryo: visualized CRL 9.1 mm 6w 6d >99% Hadlock Cardiac activity: present FHR 118 bpm Uterus Uterus: Visualized Uterus position: anteverted Description of uterine malformations: none Myometrium: normal Endometrium: normal, live IUP noted within Cervix details: normal Uterus length 104 mm Uterus width 57 mm Uterus height 45 mm Uterus Vol 140.7 cm Right Ovary Rt ovary: Visualized Rt ovary D1 30 mm Rt ovary D2 20 mm Rt ovary D3 24 mm Rt ovary Vol 7.5 cm Rt ovarian corpus luteum: hemorrhagic Rt ovarian corpus luteum D1 22.1 mm Rt ovarian corpus luteum D2 14.5 mm Rt ovarian corpus luteum D3 20.0 mm Left Ovary Lt ovary: Visualized Lt ovary morphology: premenopausal normal follicular Lt ovary D1 30 mm Lt ovary D2 20 mm Lt ovary D3 17 mm Lt ovary Vol 5.3 cm Performed By: Mae Olivares RDMS Read By: Carrol Gonzalez M.D. MATERNAL MEDICINE [facility] CNOVon 10-24-2024 CNOV Office Visit (OBGYWM ) MILLIE DELA CRUZ ([id number]) 1995 F Date Time Provider Department 10/24/24 10:10 AM GEORGE VIEIRA OBGYWM During your visit today, we recorded the following information about you: Blood pressure Weight 116/72 86.2 kg George Vieira MD 10/24/2024 10:35 AM Signed Millie Dela Cruz is a 29 year old female who presents for problem visit. HPI: Patient presents after dating US. She has trouble sleeping and a little nausea but no vomiting. Also she has been having headaches. OB History T0 L0 SAB0 IAB0 Ectopic1 Multiple0 Live Births0 Belt Knife Feeder History LMP: 09/07/2024, Age at Menarche: Age at First : Age at Menopause: Belt Knife Feeder History Comments: Sexual Activity: Yes; Male Contraception: No contraception data on record PAST MEDICAL HISTORY Diagnosis Date Migraine with aura, with intractable migraine, so stated, with status migrainosus occular migraines as a teenager PCOS (polycystic ovarian syndrome) PAST SURGICAL HISTORY Procedure Laterality Date ECTOPIC - TREATMENT injection April 02, 2024 REFRACTIVE SURGERY OD (RIGHT EYE) 2019 FAMILY HISTORY Problem Relation Age of Onset other (polycystic ovary syndrome) Mother other (cervical dysplasia) Mother Obesity Mother Obesity Father Obesity Sister Obesity Brother Breast Cancer Maternal Grandmother Obesity Paternal Grandmother Social History Tobacco Use Smoking status: Every Day Types: Pipe Smokeless tobacco: Never Vaping Use Vaping status: Never Used Substance Use Topics Alcohol use: Yes Comment: occasional Drug use: Not Currently Current Outpatient Medications Medication Sig no115/iron/folic acid ( 19 ORAL) Take by mouth. metFORMIN (GLUCOPHAGE) 1,000 mg tablet Take 1 tablet by mouth two times a day with meals. No current facility-administered medications for this visit. Allergies As of Date: 10/24/2024 Allergen Noted Reaction AMOXICILLIN 01/09/2017 Rash ZYTHROMAX [AZITHROMYCIN] 01/09/2017 Rash Fully Assessed 10/24/2024 Allergies and current medication updated:Yes SENSITIVE EXAM: Sensitive exam not performed. EXAM: BP 116/72 Wt 190 lb (86.2kg) LMP 09/07/2024 GENERAL: pleasant, female in no apparent distress ASSESSMENT AND PLAN: Assessment AND Plan Early stage of Insomnia, unspecified type related nausea, antepartum Migraine without status migrainosus, not intractable, unspecified migraine type Prelim US read shows EDC is c/w LMP. Magnesium oxide AND vitamin B6 given. Follow up for first new OB visit as scheduled. Medical Decision Making: Problems: Low: Acute, uncomplicated illness or injury Moderate: 1+ chronic illnesses with change Data: Unique test result(s) reviewed: 3+ Risk: Moderate: Drug management Medical Decision Making Level: 4 - Moderate George Vieira MD Allergies As of Date: 10/24/2024 Noted Allergy Reaction AMOXICILLIN 01/09/2017 2 - Rash ZYTHROMAX (AZITHROMYCIN) 01/09/2017 2 - Rash Date Reviewed: 10/24/2024 Reviewed by: George Vieira MD - Fully Assessed Reason for Visit: early [Other] Primary Visit Diagnosis:Early stage of [Z34.90] Other Visit Diagnoses:Insomnia, unspecified type [G47.00] related nausea, antepartum [O26.899, R11.0] Migraine without status migrainosus, not intractable, unspecified migraine type [G43.909] Order(s):Magnesium Oxide 420 mg tabTake 1 tablet by mouth once daily.Disp: 100 tabletRfl: 3 pyridoxine, vitamin B6, (VITAMIN B-6) 50 mg tabletTake 1 tablet by mouth two times a day.Disp: 100 tabletRfl: 2 Prescriptions as of 11/19/2024 - aspirin, enteric coated (ECOTRIN LOW STRENGTH) 81 mg EC tablet Take 1 tablet by mouth once daily. - metFORMIN (GLUCOPHAGE) 1,000 mg tablet Take 1 tablet by mouth two times a day with meals. - Magnesium Oxide 420 mg tab Take 1 tablet by mouth once daily. - pyridoxine, vitamin B6, (VITAMIN B-6) 50 mg tablet Take 1 tablet by mouth two times a day. - no115/iron/folic acid ( 19 ORAL) Take by mouth. Problem List As Of Date 10/24/2024 Noted Resolved PCOS (polycystic ovarian syndrome) [E28.2] 05/06/2024 Elevated LDL cholesterol level [E78.00] 05/06/2024 Vitamin D deficiency [E55.9] 05/06/2024 Ocular migraine [G43.109] 05/06/2024 Class 2 obesity with body mass index (BMI) of 3*05/06/2024 Prescriptions ordered this encounter Disp Refills Start End MAGNESIUM OXIDE 420 MG TABLET 100 * 3 10/24/2024 Route: ORAL Sig: Take 1 tablet by mouth once daily. PYRIDOXINE (VITAMIN B6) 50 MG TABLET 100 * 2 10/24/2024 Route: ORAL Sig: Take 1 tablet by mouth two times a day. 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 Encounter Diagnosis ICD-10-CM 1. Hx of ectopic Z87.59 Please see report under imaging tab. Carrol Gonzalez MD October 27, 2024 8:48 AM Referring Provider: GEORGE VIEIRA [[id number]] Allergies As of Date: 10/24/2024 Noted Allergy Reaction AMOXICILLIN 01/09/2017 2 - Rash ZYTHROMAX (AZITHROMYCIN) 01/09/2017 2 - Rash Date Reviewed: 10/24/2024 Reviewed by: George Vieira MD - Fully Assessed Visit Diagnosis:Hx of ectopic [Z87.59] Order(s):OBSTETRIC ULTRASOUND I [[id number]] Order #: [id number]. #:[id number] IEWPOINTQty: 1 Prescriptions as of 10/27/2024 - Magnesium Oxide 420 mg tab Take 1 tablet by mouth once daily. - pyridoxine, vitamin B6, (VITAMIN B-6) 50 mg tablet Take 1 tablet by mouth two times a day. - no115/iron/folic acid ( 19 ORAL) Take by mouth. - metFORMIN (GLUCOPHAGE) 1,000 mg tablet Take 1 tablet by mouth two times a day with meals. Problem List As Of Date 10/24/2024 Noted Resolved PCOS (polycystic ovarian syndrome) [E28.2] 05/06/2024 Elevated LDL cholesterol level [E78.00] 05/06/2024 Vitamin D deficiency [E55.9] 05/06/2024 Ocular migraine [G43.109] 05/06/2024 Class 2 obesity with body mass index (BMI) of 3*05/06/2024 Encounter Status:Closed by CARROL GONZALEZ on 10/27/24 Normal [facility] Examination level ultrasound on 10-24-2024 Radiology Study observation (narrative) [facility] B-HCG [place] [address].0 m[IU]/mL High <5.0 [facility] Comment on above: Order Comment: Speci men Type: BLOOD SPECIMENOrdering Facility: [facility] Address: [address] [place] [address] Result Comment: BROCK TITATIVE HCG NORMAL RANGES Weeks of Gestation (Weeks Since LMP) 3 Weeks (5.8-71.2 mIU/mL) 4 Weeks (9.5-750 mIU/mL) 5 Weeks (217-7138 mIU/mL) 6 Weeks (158-31467 mIU/mL) 7 Weeks (3697-736667 mIU/mL) 8 Weeks (32366-350334 mIU/mL) 9 Weeks (21283-989110 mIU/mL) 10 Weeks (22821-866652 mIU/mL) 12 Weeks (12315-614949 mIU/mL) Referenced to 4th IS of [facility] Performed By: #### 2 1198-7 ####[facility] [id number] [address] [place] CNOVon 10-16-2024 CNOV Office Visit (OBGYWM ) MILLIE DELA CRUZ ([id number]) 1995 F Date Time Provider Department 10/16/24 11:45 AM MARLENE JIMENEZ During your visit today, we recorded the following information about you: Blood pressure Weight Last Period 118/70 85.3 kg 09/07/24 Marlene Jimenez, DEE DEE.PERFORMANCE TESTER 10/16/2024 12:15 PM Addendum Engine Mechanic offered: Patient declines. Millie Dela Cruz is a 29 year old female who presents for problem visit of spotting in early . HPI: Millie presents for spotting in early . She describes the spotting as light pink. It has now resolved. She denies itching or irritation. Her LMP was 09/07/2024. She has a history of ectopic March 2024. OB History T0 L0 SAB0 IAB0 Ectopic1 Multiple0 Live Births0 Belt Knife Feeder History LMP: 09/07/2024, Having periods Age at Menarche: Age at First : Age at Menopause: Belt Knife Feeder History Comments: Sexual Activity: Yes; Male Contraception: No contraception data on record PAST MEDICAL HISTORY Diagnosis Date Migraine with aura, with intractable migraine, so stated, with status migrainosus occular migraines as a teenager PCOS (polycystic ovarian syndrome) PAST SURGICAL HISTORY Procedure Laterality Date ECTOPIC - TREATMENT injection April 02, 2024 REFRACTIVE SURGERY OD (RIGHT EYE) 2019 FAMILY HISTORY Problem Relation Age of Onset other (polycystic ovary syndrome) Mother other (cervical dysplasia) Mother Obesity Mother Obesity Father Obesity Sister Obesity Brother Breast Cancer Maternal Grandmother Obesity Paternal Grandmother Social History Tobacco Use Smoking status: Every Day Types: Pipe Smokeless tobacco: Never Vaping Use Vaping status: Never Used Substance Use Topics Alcohol use: Yes Comment: occasional Drug use: Not Currently Current Outpatient Medications Medication Sig metFORMIN (GLUCOPHAGE) 1,000 mg tablet Take 1 tablet by mouth two times a day with meals. Phentermine HCl 37.5 mg tablet Take 1 tablet by mouth daily before breakfast for 90 days. (Patient not taking: Reported on 10/16/2024) drospirenone, contraceptive, (SLYND) 4 mg (28) tabet Take 1 tablet by mouth once daily. No current facility-administered medications for this visit. Allergies As of Date: 10/16/2024 Allergen Noted Reaction AMOXICILLIN 01/09/2017 Rash ZYTHROMAX [AZITHROMYCIN] 01/09/2017 Rash Fully Assessed 10/16/2024 REVIEW OF SYSTEMS Expanded ROS: LOOM TUNER: + light spotting Allergies and current medication updated:Yes SENSITIVE EXAM: The sensitive examination was discussed with the Patient or Patient's Authorized Ux Specialist. As applicable, any other physician, advance practice provider, medical student, or other health professional student that will be observing or involved in the sensitive examination for educational or training purposes was discussed with the Patient or Authorized Ux Specialist. The Patient or Authorized Ux Specialist has agreed to proceed with the sensitive examination. (Sensitive examination includes inspection and/or palpation of the breasts, pelvis, prostate and anorectal regions). EXAM: BP 118/70 Wt 188 lb (85.3kg) LMP 09/07/2024 GENERAL: pleasant, female in no apparent distress HEENT: Normocephalic, atraumatic, mucus membranes moist, and no lesions CHEST: Normal inspiratory effort PELVIC: external genitalia normal, normal Bartholin's glands, urethra, Rains's glands NEURO: alert and oriented x3,exam grossly non-focal EXTREMITIES: normal ASSESSMENT AND PLAN: 1. with uncertain dates in first trimester - ICD9: V22.1, ICD10: Z34.91 (primary diagnosis) - POCUS today shows intrauterine , yolk sac visualized, pole uncertain - IUP also confirmed by Jp Mireles - Reassured patient - Plan for early formal dating as scheduled - Continue serial HCG - Continue PNV 2. History of ectopic - ICD9: V13.29, ICD10: Z87.59 - Bleeding and pain precautions reviewed Marlene Jimenez APRN.CNP Medical Decision Making: Problems: Low: Acute, uncomplicated illness or injury Data: Unique test(s) ordered: 1 Risk: Minimal: Minimal risk from testing/treatment Medical Decision Making Level: 2 - Straightforward Allergies As of Date: 10/16/2024 Noted Allergy Reaction AMOXICILLIN 01/09/2017 2 - Rash ZYTHROMAX (AZITHROMYCIN) 01/09/2017 2 - Rash Date Reviewed: 10/16/2024 Reviewed by: Marlene Jimenez APRN.PERFORMANCE TESTER - Fully Assessed Reason for Visit: Problem Visitt [Other] Primary Visit Diagnosis: with uncertain dates in first trimester [Z34.91] Other Visit Diagnosis:History of ectopic [Z87.59] Order(s):POC ATTORNEY AT LAW ULTRASOUND [[id number]] Order #: [id number]. #:[id number] IEWPOINTQty: 1 Prescriptions as of 11/19/2024 - aspirin, enteric coated (ECOTRIN LOW STRENGTH) 81 mg EC tablet Take 1 tablet by mouth on (more content not included)... Normal [facility] POC ATTORNEY AT LAW ULTRASOUNDon 10-16-19 Indication Confirmation of intrauterine Impression Single intrauterine gestational sac with yolk sac present, uncertain pole Recommendations Follow up for formal dating as scheduled Method Transvaginal ultrasound examination. View: Adequate visualization Alexandre . Number of embryos: 1 Dating LMP on: 09/07/2024 GA by LMP 5 w + 4 d VIRGIL by LMP: 06/14/2025 Ultrasound examination on: 10/16/2024 GA by U/S based upon: CRL GA by U/S 6 w + 0 d VIRGIL by U/S: 06/11/2025 Assigned: based on the LMP, selected on 10/16/2024 Assigned GA 5 w + 4 d Assigned VIRGIL: 06/14/2025 Biometry Standard CRL 3.7 mm 6w 0d 80% Hadlock Assessment Gestational sac: visualized Location: intrauterine Yolk sac: visualized Embryo: uncertain CRL 3.7 mm 6w 0d 80% [place] Performed By: Marlene Jimenez NP Read By: Marlene Jimenez NP MATERNAL MEDICINE [facility] Radiology Study observation (narrative) [facility] B[facility]CG [facility] 5 HCG.beta subunit Qn 385.3 m[IU]/mL High <5.[address] [facility] Comment on above: Order Comment: Speci men Type: BLOOD SPECIMENOrdering Facility: [facility] Address: [address] [place], [place] [address] Result Comment: BROCK TITATIVE HCG NORMAL RANGES Weeks of Gestation (Weeks Since LMP) 3 Weeks (5.8-71.2 mIU/mL) 4 Weeks (9.5-750 mIU/mL) 5 Weeks (217-7138 mIU/mL) 6 Weeks (158-75012 mIU/mL) 7 Weeks (3697-405803 mIU/mL) 8 Weeks (38363-431453 mIU/mL) 9 Weeks (64938-418994 mIU/mL) 10 Weeks (73016-894324 mIU/mL) 12 Weeks (78975-280929 mIU/mL) Referenced to 4th IS of [facility] Performed By: #### 2 1198-7 ####[facility] LABCLIA [id number] [place] [address] [place] HCG QUANTITATIVEon 5 HCG.beta subunit Qn 385.3 m[IU]/mL High NINF C [facility] Comment on above: QUANTITATIVE HCG NOR MAL RANGES Weeks of Gestation (Weeks Since LMP) 3 Weeks (5.8-71.2 mIU/mL) 4 Weeks (9.5-750 mIU/mL) 5 Weeks (217-7138 mIU/mL) 6 Weeks (158-87391 mIU/mL) 7 Weeks (3697-903509 mIU/mL) 8 Weeks (25442-215704 mIU/mL) 9 Weeks (07326-162252 mIU/mL) 10 Weeks (94517-222135 mIU/mL) 12 Weeks (28572-273545 mIU/mL) Referenced to 4th IS of [facility] HCG.beta subunit Qnon 2024 Interpretation and review of laboratory results Abnormal [facility] B-HCG SerPl-aCncon 5 HCG.beta subunit Qn 118.6 m[IU]/mL High <5.[address] [facility] Comment on above: Order Comment: Speci men Type: BLOOD SPECIMENOrdering Facility: [facility] Address: [address] [place] [address] Result Comment: BROCK TITATIVE HCG NORMAL RANGES Weeks of Gestation (Weeks Since LMP) 3 Weeks (5.8-71.2 mIU/mL) 4 Weeks (9.5-750 mIU/mL) 5 Weeks (217-7138 mIU/mL) 6 Weeks (158-06605 mIU/mL) 7 Weeks (3697-679015 mIU/mL) 8 Weeks (77132-047584 mIU/mL) 9 Weeks (60730-859626 mIU/mL) 10 Weeks (03334-784805 mIU/mL) 12 Weeks (51814-267194 mIU/mL) Referenced to 4th IS [facility] Performed By: #### 2 1198-7 ####[facility] LABCLIA [id number] [place] [address] [place] HCG QUANTITATIVEon HCG.beta subunit Qn 118.6 m[IU]/mL [facility] Comment on above: QUANTITATIVE HCG NOR MAL RANGES Weeks of Gestation (Weeks Since LMP) 3 Weeks (5.8-71.2 mIU/mL) 4 Weeks (9.5-750 mIU/mL) 5 Weeks (217-7138 mIU/mL) 6 Weeks (158-58251 mIU/mL) 7 Weeks (3697-813594 mIU/mL) 8 Weeks (50121-157133 mIU/mL) 9 Weeks (85284-874242 mIU/mL) 10 Weeks (85023-059895 mIU/mL) 12 Weeks (36589-721175 mIU/mL) Referenced to 4th [facility] HCG.beta subunit Qnon 2024 Interpretation and review of laboratory results Abnormal [facility] CNPNon 10-02-2024 CNPN Telephone (DAPHNEYWE) MILLIE DELA CRUZ ([id number]) 1995 F Date Time Provider Department 10/02/24 ZAHRA FLOYD During your visit today, we recorded the following information about you: Zahra Floyd RN 10/02/2024 1:15 PM Signed ----- Message from Krista Lomas sent at 10/02/2024 12:54 PM EST ----- Regarding: New OB, Preexisitng Condition Patient has been identified by name and Date of : Yes Patient: Millie Dela Cruz Date of : 1995 Provider for this encounter : [facility] Reason for call: New OB first visits Was an appointment scheduled: No Reason for requesting visit (RFV/signs and symptoms/diagnosis) : New - LMP 09/07/24, Previous DX of PCOS, miscarriages, ectopic Person calling: self Return call to: self Call patient at: [phone] (cell), it is OK to leave message Payor: [employer] / Plan: [employer] OAP / Product Type: Open Access / Zahra Finch RN 10/02/2024 1:35 PM Signed Call placed to patient to triage for new OB appt. Name and identified. LMP? 09/07/2024 Gestational age 3w4d When did you have a + test? today PNV? Not yet - picking one up today Any cats in the home? no If so, is patient aware of litter box precautions? Pelvic pain? no Miscarriage and ectopic precautions given Vaginal bleeding? no Patient given bleeding precautions. Nausea with or without vomiting? Nauseous with food aversions If patient is vomiting, how often and is she keeping down fluids? N/a Patient given precautions for vomiting Any medical history that can effect the ? Infertility, m/c x1, ectopic x1 @ 5w. PCOS takes metformin, recent weight loss ands periods regular. Patient on phentermine, last dose today, will discontinue going forward. Office/provider patient wishes to establish care to? [facility] Patient aware to sign up for My Chart if she does not already have it, so she can receive the skin care consultant messages. Will forward this encounter to the schedulers in this office. Zahra Baez RN 10/02/2024 2:31 PM Signed LMP 09/07 Approximately 3w4d See notes below. Received a message that patient is requesting HCG levels due to history. Had an ectopic in March 2024. Patient did not have day 4 and 7 HCG level done after the methotrexate. Patient was advised by intake nurse to stop taking Phentermine. Do you want her to have HCG level x2 per patient request? Needs NOB scheduled. Orders pending. JOHN Bañuelos Karmon, MD 10/02/2024 2:38 PM Signed Hcg levels ordered. Please have venereal disease control head provider review. MD Naveen Erwin Tara, RN 10/02/2024 2:45 PM Signed Pt notified. Pt will get drawn tomorrow (10/03/24) and Sunday (10/05/24). Please keep open for HCG results. JOHN Banda Trisha, RN 10/07/2024 9:40 AM Signed Please review hcg lab results. hCG Quantitative, Blood (mIU/mL) Date Value 2024 385.3 10/03/2024 118.6 JOHN Tineo Karmon, MD 10/07/2024 11:12 AM Signed Hcg levels increasing well. Dating US ordered. Please schedule when patient would be 6 weeks based on LMP. TRACY Erwin Jennifer, RN 10/07/2024 11:23 AM Signed See [employer] message sent by patient today. 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 - drospirenone, contraceptive, (SLYND) 4 mg (28) tabet Take 1 tablet by mouth once daily. - metFORMIN (GLUCOPHAGE) 1,000 mg tablet Take 1 tablet by mouth two times a day with meals. Problem List As Of Date 10/02/2024 Noted Resolved PCOS (polycystic ovarian syndrome) [E28.2] 05/06/2024 Elevated LDL cholesterol level [E78.00] 05/06/2024 Vitamin D deficiency [E55.9] 05/06/2024 Ocular migraine [G43.109] 05/06/2024 Class 2 obesity with body mass index (BMI) of 3*05/06/2024 Encounter Status:Closed by ZAHRA BAEZ on 10/07/24 [facility] CNNURSEon 09-18-2024 CNNURSE Nurse Visit (OBGYWM) MILLIE DELA CRUZ ([id number]) 1995 F Date Time Provider Department 09/18/24 10:00 AM NURSE CLINICAL RESEARCH PHYSICIAN [facility] WSTR OBGYWM During your visit today, we recorded the following information about you: Pulse Blood pressure Weight 82/minute 112/70 81.2 kg Minda Dela Cruz RN 09/18/2024 10:27 AM Signed Patient presents for weight, BP and pulse check for Phentermine refill. Patient denies any unwanted side effects. See vitals tab for results. Patient has next appointment for weight management scheduled with Leona Enriquez. JOHN Salmon Deidre, MD 09/18/2024 10:27 AM Signed Reviewed chart. Pt has met criteria to remain on medication. Will refill medication in AG absence. Pt has follow up appt when AG returns Allergies As of Date: 09/18/2024 Noted Allergy Reaction AMOXICILLIN 01/09/2017 2 - Rash ZYTHROMAX (AZITHROMYCIN) 01/09/2017 2 - Rash Date Reviewed: 09/18/2024 Reviewed by: Minda Dela Cruz RN - Fully Assessed Reason for Visit: BP Check [142] Weight Check [196] Cmt: Visit Diagnoses:PCOS (polycystic ovarian syndrome) [E28.2] Elevated LDL cholesterol level [E78.00] Class 2 obesity with body mass index (BMI) of 39.0 to 39.9 in adult, unspecified obesity type, unspecified whether serious comorbidity present [E66.812, Z68.39] Order(s):Phentermine HCl 37.5 mg tabletTake 1 tablet by mouth daily before breakfast for 90 days.Disp: 90 tabletRfl: 0 Prescriptions as of 09/18/2024 - Phentermine HCl 37.5 mg tablet Take 1 tablet by mouth daily before breakfast for 90 days. - drospirenone, contraceptive, (SLYND) 4 mg (28) tabet Take 1 tablet by mouth once daily. - metFORMIN (GLUCOPHAGE) 1,000 mg tablet Take 1 tablet by mouth two times a day with meals. Medication notes this encounter DROSPIRENONE (CONTRACEPTIVE) 4 MG (28) TABLET >> Minda Dela Cruz RN 09/18/2024 10:12 AM >> MINDA DELA CRUZ [facility] Sep 18, 2024 10:12 AM No longer taking Problem List As Of Date 09/18/2024 Noted Resolved PCOS (polycystic ovarian syndrome) [E28.2] 05/06/2024 Elevated LDL cholesterol level [E78.00] 05/06/2024 Vitamin D deficiency [E55.9] 05/06/2024 Ocular migraine [G43.109] 05/06/2024 Class 2 obesity with body mass index (BMI) of 3*05/06/2024 Prescriptions ordered this encounter Disp Refills Start End PHENTERMINE 37.5 MG TABLET 90 t* 0 09/18/2024 12/17/2024 Route: ORAL Sig: Take 1 tablet by mouth daily before breakfast for 90 days. Medications Discontinued During This Encounter Prescriptions - Phentermine HCl 37.5 mg tablet (Discontinued) Take 1 tablet by mouth daily before breakfast for 90 days. Encounter Status:Closed by VICKY SHABAZZ on 09/18/24 [facility] Cj 06-19-2024 CNOV Office Visit (OBGYWM ) MILLIE DELA CRUZ ([id number]) 1995 F Date Time Provider Department 9/19/24 9:30 AM LEONA ENRIQUEZ During your visit today, we recorded the following information about you: Pulse Blood pressure Weight Last Period 90/minute 128/76 80.4 kg 06/19/24 Leona Enriquez APRN.CNP 06/19/2024 6:54 PM Signed Some documentation from previous visit of 11/08/2023 was copied and pasted, documentation has been reviewed and edited as necessary for today's visit. Patient Summary: Millie is a 28 year old Female who presents for follow-up evaluation of obesity/weight management to treat PCOS, elevated LDL level and prevent related co-morbidities. In our previous visits we have discussed lifestyle intervention including a nutrition recommendations and physical activity optimization. Her last office visit was 3 months ago. Assessment/plan from last visit: Ectopic treated with methotrexate 04/02/2024. States doing well emotionally and physically. -Metformin - 1 gm twice a day. No SE. -Phentermine 37.5 mg 0800 - Slynd - Vit D -taking supplement. Size 10 jeans from size 20 wedding is August 02, 2024 -- stopped due to increased anxiety.,deep sadness and crying Interval History Awake - 0630 am 1.5-2 cups coffee with 1 T milk - trying to wean to drinking black coffee. Starts work at 1000 from home B - 12 - egg scramble or egg bites or 30 gm protein shake or beef sticks S - none or rarely cheese stick with proschutto with pistachios/cashews/al monds and [employer]obani SF [place] yogurt or Triple Zero L - 2-3 pm breakfast sandwich or protein with sweet potato S - none D - 1845 pm meat, small portion - mashed potato/sweet potato fries airfried, occasional vegetable if eating out or Eats out - [place] chicken enchillada, rice AND beans or thin crust pizza with added protein S - none Fluids - coffee with a little milk, water, regular pop once a week or so she does not deprive herself. Starbucks - 120 kcal - rare Exercise: stable 5500 steps/day Increased activity with home projects. Mindful of moving Stress: increased Financial, getting 08/2024, future in-laws Sleep: stable 8 hours, well-rested Weight loss since last vist: 12 lbs for total of 56 Date: Weight: BMI: Medications: 06/19/2024 177 lb 30.42 NC15.5 in WC 38.75 in 02/06/2024 189 lb 32.48 11/08/2023 211 lb 36.22 phentermine 37.5 Topiramate 25 08/09/2023 226 lb 38.79 phentermine 15 mg 07/11/2023 233 lb 39.99 WC 44.75 NC 15.75 metformin 5% weight loss = 221 lbs, 10% weight loss = 209 lbs Metformin Start date: ?07/14/2023 Start weight: ?233 lbs. Dose:500 mg with dinner, increased to 1000 mg twice a day -- Patient reports suppression of her appetite and increase in satiety since starting -- Patient reports diarrhea after starting metformin Phentermine Benefit - decreased appetite, smaller portions SE: none Anti-Obesity Medications >Phentermine: No uncontrolled HTN, No CVD Hx or hx of seizure disorder. No MAOI inhibitor use. No drug abuse hx. Crcl > 15. >Topiramate/zonisamid e: No seizure or kidney stone hx. Yes hx of migraines, Yes hx of poor sleep. Yes Child bearing age. >Qsymia: see above >Contrave: No contraindications. Could affect mood. No uncontrolled HTN or hx of seizure disorder. No MAOI inhibitor use. No opiate use. >Saxenda/Wegovy/Ozemp ic: Cost. Ins coverage? >Metformin: No contraindications or medication interactions. eGFR > 30. Estimated Creatinine Clearance: 154.1 mL/min (based on SCr of 0.65 mg/dL). PAST MEDICAL HISTORY Diagnosis Date Migraine with aura, with intractable migraine, so stated, with status migrainosus occular migraines as a teenager PCOS (polycystic ovarian syndrome) Current Outpatient Medications Medication Sig Dispense Refill Phentermine HCl 37.5 mg capsule Take 37.5 mg by mouth. drospirenone, contraceptive, (SLYND) 4 mg (28) tabet Take 1 tablet by mouth once daily. 30 tablet 11 metFORMIN (GLUCOPHAGE) 1,000 mg tablet Take 1 tablet by mouth two times a day with meals. 180 tablet 2 topiramate (TOPAMAX) 25 mg tablet Take 1 tablet by mouth two times a day. (Patient not taking: Reported on 04/01/2024) 180 tablet 1 No current facility-administered medications for this visit. OCCUPATION Works from home Current Contraception: Slynd Obesity ROS/ FHx GEN: Fatigue:yes GI: GERD:yes Symptoms of PCOS: yes NEURO: Migraines/LINDER: yes, occular migraines BP 128/76 Pulse 90 Wt 80.4 kg (177 lb 3.2 oz) LMP 06/19/2024 SpO2 100% BMI 30.42 kg/m? Appointment on 07/14/2023 Component Date Value Ref Range Status Vitamin D 25 Hydroxy 07/14/2023 24.5 (L) 31.0 - 80.0 ng/mL Final Insulin 07/14/2023 25.0 3.0 - 25.0 mU/L Final Hemoglobin A1C 07/14/2023 5.2 4.3 - 5.6 % Final Estimated Average Glucose 07/14/2023 103 mg/dL Final WBC 07/14/2023 8.21 3.70 - 11.00 k/uL Fi (more content not included)... Normal [facility] HCG QUANTITATIVEon HCG.beta subunit Qn 226.6 m[IU]/mL High [facility] Comment on above: QUANTITATIVE HCG NOR MAL RANGES Weeks of Gestation (Weeks Since LMP) 3 Weeks (5.8-71.2 mIU/mL) 4 Weeks (9.5-750 mIU/mL) 5 Weeks (217-7138 mIU/mL) 6 Weeks (158-08799 mIU/mL) 7 Weeks (3697-319293 mIU/mL) 8 Weeks (77668-129878 mIU/mL) 9 Weeks (08441-390461 mIU/mL) 10 Weeks (08826-001964 mIU/mL) 12 Weeks (26183-923821 mIU/mL) Referenced to [facility]th [facility] HCG.beta subunit Qnon 2023 Interpretation and review of laboratory results Abnormal [facility] Bacteria identifiedon 2023 Bacteria identified Cx Nom (U) Test: Urine culture Specimen Source: Clean Catch/Voided Specimen Type: Urine Specimen Date: 03/28/20241954 Result Date: 03/30/2024 1109 Result Status: Final result Abnormal: No Resulting Lab: [facility] [address] [id number] CULTURE No significant growth [facility] Comment on above: Performed By: #### 6 30-4 #### ESTRELLITA Rodriguez ([id number]) [facility] ([facility]) [id number] [place] [address] Blood type and Indirect anti body screen panel (Bld)on 03-28-2024 ABO group Nom (Bld) O [facility] Blood group antibody screen Ql Negative [facility] D Ag Ql (Bld) Positive [facility] ABO group Nom (Bld) O Normal [facility] Comment on above: Performed By: #### 3 4532-2 #### FERNANDO GONZALEZ ([id number]) [facility] ([facility]) [address] [place] [address] Blood group antibody screen Ql Negative [facility] Comment on above: Performed By: #### 3 4532-2 #### FERNANDO GONZALEZ ([id number]) [facility] ([facility]) [address] [place] [address] D Ag Ql (Bld) Positive [facility] Comment on above: Performed By: #### 3 4532-2 #### FERNANDO GONZALEZ ([id number]) [facility] ([facility]) [address] [place] [address] CBC W Auto Differential pane l (Bld)on 03-28-2024 Basophils (Bld) [#/Vol] 0.06 10*3/uL [facility] Basophils/100 WBC (Bld) 0.6 % 0.0 - 2.0 % [facility] Eosinophils (Bld) [#/Vol] 0.04 10*3/uL [facility] Eosinophils/100 WBC (Bld) 0.4 % 0.0 - 6.0 % [facility] Erythrocyte distribution width (RBC) [Ratio] 12.2 % 11.5 - 14.5 % [facility] Hematocrit (Bld) [Volume fraction] 40.7 % 36.0 - 46.0 % [facility] Hemoglobin (Bld) [Mass/Vol] 13.5 g/dL 12.0 - 16.0 g/dL [facility] Immature granulocytes (Bld) [#/Vol] 0.03 10*3/uL [facility] Immature granulocytes/100 WBC (Bld) 0.3 % 0.0 - 0.9 % [facility] Comment on above: Immature Granulocyte Count (IG) includes promyelocytes, myelocytes and metamyelocytes but does not include bands. Percent differential counts (%) should be interpreted in the context of the absolute cell counts (cells/UL). Lymphocytes (Bld) [#/Vol] 2.82 10*3/uL [facility] Lymphocytes/100 WBC (Bld) 26.1 % 13.0 - 44.0 % [facility] MCH (RBC) [Entitic mass] 30.5 pg 26.0 - 34.0 pg [facility] MCHC (RBC) [Mass/Vol] 33.2 g/dL 32.0 - 36.0 g/dL [facility] MCV (RBC) [Entitic vol] 92 fL 80 - 100 fL [facility] Monocytes (Bld) [#/Vol] 0.82 10*3/uL [facility] Monocytes/100 WBC (Bld) 7.6 % 2.0 - 10.0 % [facility] Neutrophils (Bld) [#/Vol] 7.03 10*3/uL [facility] Comment on above: Percent differential counts (%) should be interpreted in the context of the absolute cell counts (cells/uL). Neutrophils/100 WBC (Bld) 65.0 % 40.0 - 80.0 % [facility] Nucleated RBC/100 WBC (Bld) [Ratio] 0.0 % [facility] Platelets (Bld) [#/Vol] 343 10*3/uL [facility] RBC (Bld) [#/Vol] 4.42 10*6/uL [facility] WBC (Bld) [#/Vol] 10.8 10*3/uL [facility] Basophils (Bld) [#/Vol] 0.06 x10*3/uL Normal 0.00-0.10 [facility] Comment on above: Performed By: #### 5 7021-8 #### FERNANDO GONZALEZ ([id number]) [facility] ([facility]) [address] [place] [address] Basophils/100 WBC (Bld) 0.6 % Normal 0.0-2.0 [facility] Comment on above: Performed By: #### 5 7021-8 #### FERNANDO GONZALEZ ([id number]) [facility] ([facility]) [address] [place] [address] 72099 Eosinophils (Bld) [#/Vol] 0.04 x10*3/uL Normal 0.00-0.70 [facility] Comment on above: Performed By: #### 5 7021-8 #### FERNANDO GONZALEZ ([id number]) [facility] ([facility]) [address] [place] [address] 34730 Eosinophils/100 WBC (Bld) 0.4 % Normal 0.0-6.0 [facility] Comment on above: Performed By: #### 5 7021-8 #### FERNANDO GONZALEZ ([id number]) [facility] ([facility]) [address] [place] [address] 47800 Erythrocyte distribution width (RBC) [Ratio] 12.2 % Normal 11.5-14.5 [facility] Comment on above: Performed By: #### 5 7021-8 #### FERNANDO GONZALEZ ([id number]) [facility] ([facility]) [address] [place] [address] 78708 Hematocrit (Bld) [Volume fraction] 40.7 % Normal 36.0-46.0 [facility] Comment on above: Performed By: #### 5 7021-8 #### FERNANDO GONZALEZ ([id number]) [facility] ([facility]) [address] [place] [address] 03705 Hemoglobin (Bld) [Mass/Vol] 13.5 g/dL Normal 12.0-16.0 [facility] Comment on above: Performed By: #### 5 7021-8 #### FERNANDO GONZALEZ ([id number]) [facility] ([facility]) [address] [place] [address] 86410 Immature granulocytes (Bld) [#/Vol] 0.03 x10*3/uL Normal 0.00-0.70 [facility] Comment on above: Performed By: #### 5 7021-8 #### FERNANDO GONZALEZ ([id number]) [facility] ([facility]) [address] [place] [address] 47112 Immature granulocytes/100 WBC (Bld) 0.3 % Normal 0.0-0.9 [facility] Comment on above: Result Comment: Brandy ture Granulocyte Count (IG) includes promyelocytes, myelocytes and metamyelocytes but does not include bands. Percent differential counts (%) should be interpreted in the context of the absolute cell counts (cells/UL). Performed By: #### 5 7021-8 #### FERNANDO GONZALEZ ([id number]) [facility] ([facility]) [address] [place] [address] 55583 Lymphocytes (Bld) [#/Vol] 2.82 x10*3/uL Normal 1.20-4.80 [facility] Comment on above: Performed By: #### 5 7021-8 #### FERNANDO GONZALEZ ([id number]) [facility] ([facility]) [address] [place] [address] 24997 Lymphocytes/100 WBC (Bld) 26.1 % Normal 13.0-44.0 [facility] Comment on above: Performed By: #### 5 7021-8 #### FERNANDO GONZALEZ ([id number]) [facility] ([facility]) [address] [place] [address] 90452 MCH (RBC) [Entitic mass] 30.5 pg Normal 26.0-34.0 [facility] Comment on above: Performed By: #### 5 7021-8 #### FERNANDO GONZALEZ ([id number]) [facility] ([facility]) [address] [place] [address] 29574 MCHC (RBC) [Mass/Vol] 33.2 g/dL Normal 32.0-36.0 [facility] Comment on above: Performed By: #### 5 7021-8 #### FERNANDO GONZALEZ ([id number]) [facility] ([facility]) [address] [place] [address] 20069 MCV (RBC) [Entitic vol] 92 fL Normal 80-100 [facility] Comment on above: Performed By: #### 5 7021-8 #### FERNANDO GONZALEZ ([id number]) [facility] ([facility]) [address] [place] [address] 14126 Monocytes (Bld) [#/Vol] 0.82 x10*3/uL Normal 0.10-1.00 [facility] Comment on above: Performed By: #### 5 7021-8 #### FERNANDO GONZALEZ ([id number]) [facility] ([facility]) [address] [place] [address] 32162 Monocytes/100 WBC (Bld) 7.6 % Normal 2.0-10.0 [facility] Comment on above: Performed By: #### 5 7021-8 #### FERNANDO GONZALEZ ([id number]) [facility] ([facility]) [address] [place] [address] 83831 Neutrophils (Bld) [#/Vol] 7.03 x10*3/uL Normal 1.20-7.70 [facility] Comment on above: Result Comment: Perc ent differential counts (%) should be interpreted in the context of the absolute cell counts (cells/uL). Performed By: #### 5 7021-8 #### FERNANDO GONZALEZ ([id number]) [facility] ([facility]) [address] [place] [address] 31248 Neutrophils/100 WBC (Bld) 65.0 % Normal 40.0-80.0 [facility] Comment on above: Performed By: #### 5 7021-8 #### FERNANDO GONZALEZ ([id number]) [facility] ([facility]) [address] [place] [address] Nucleated RBC/100 WBC (Bld) [Ratio] 0.0 /100 WBCs Normal 0.0-0.0 [facility] Comment on above: Performed By: #### 5 7021-8 #### FERNANDO GONZALEZ ([id number]) [facility] ([facility]) [address] [place] [address] 29234 Platelets (Bld) [#/Vol] 343 x10*3/uL Normal 150-450 [facility] Comment on above: Performed By: #### 5 7021-8 #### FERNANDO GONZALEZ ([id number]) [facility] ([facility]) [address] [place] [address] 59615 RBC (Bld) [#/Vol] 4.42 x10*6/uL Normal 4.00-5.20 [facility] Comment on above: Performed By: #### 5 7021-8 #### FERNANDO GONZALEZ ([id number]) [facility] ([facility]) [address] [place] [address] 37679 WBC (Bld) [#/Vol] 10.8 x10*3/uL Normal 4.4-11.3 [facility] Comment on above: Performed By: #### 5 7021-8 #### FERNANDO GONZALEZ ([id number]) [facility] ([facility]) [address] [place] [address] 14586 Choriogonadotropin.beta subu niton 03-28-2024 HCG.beta subunit Qn 175 m[IU]/mL High <5 [facility] Comment on above: Order Comment: Total HCG measurement is performed using the Gaviota Carmichael Access Immunoassay which detects intact HCG and free beta HCG subunit. This test is not indicated for use as a tumor marker. HCG testing is performed using a different test methodology at [facility] than other [facility]. Direct result comparison should only be made within the same method. Result Comment: Low- level positive HCG results can be seen in early , in sruthi- or post-menopausal females due to normal pituitary HCG production, or with analytic interference. Repeat testing in 48-72 hours can aid in assessing for as results should double in this time period. FSH measurement is recommended in sruthi- or post-menopausal females as concurrent elevation of FSH can support pituitary production as the source of the HCG elevation. Performed By: #### 2 1198-7 #### KING LISA ([id number]) [facility] ([facility]) [address] [place] [address] Comprehensive metabolic 2000 panelon 03-28-2024 Albumin BCP dye [Mass/Vol] 4.5 g/dL 3.4 - 5.0 g/dL [facility] ALP [Catalytic activity/Vol] 58 U/L 33 - 110 U/L [facility] ALT With P-5'-P [Catalytic activity/Vol] 22 U/L 7 - 45 U/L [facility] Comment on above: Patients treated wit h Sulfasalazine may generate falsely decreased results for ALT. Anion gap [Moles/Vol] 11 mmol/L 10 - 2 0 mmol/L [facility] AST With P-5'-P [Catalytic activity/Vol] 15 U/L 9 - 39 U/L [facility] Bilirubin [Mass/Vol] 0.3 mg/dL 0.0 - 1 .2 mg/dL [facility] Calcium [Mass/Vol] 9.3 mg/dL 8.6 - 10. 3 mg/dL [facility] Chloride [Moles/Vol] 99 mmol/L 98 - 10 7 mmol/L [facility] CO2 [Moles/Vol] 28 mmol/L 21 - 32 mmol/L [facility] Creatinine [Mass/Vol] 0.70 mg/dL 0.50 - 1.05 mg/dL [facility] eGFR - PINF [facility] Comment on above: Calculations of fabby mated GFR are performed using the 2020 CKD-EPI Study Refit equation without the race variable for the IDMS-Traceable creatinine methods. https://jasn.asnjournals.org/content/early/ASN.2020 077086 Glucose [Mass/Vol] 94 mg/dL 74 - 99 mg/dL [facility] Interpretation and review of laboratory results Abnormal [facility] Potassium [Moles/Vol] 3.7 mmol/L 3.5 - 5.3 mmol/L [facility] Protein [Mass/Vol] 7.2 g/dL 6.4 - 8.2 g/dL [facility] Sodium [Moles/Vol] 134 mmol/L Low 136 - 145 mmol/L [facility] Urea nitrogen [Mass/Vol] 10 mg/dL 6 - 23 mg/dL [facility] Albumin BCP dye [Mass/Vol] 4.5 g/dL Normal 3.4-5.0 [facility] Comment on above: Performed By: #### 2 4323-8 #### FERNANDO GONZALEZ ([id number]) [facility] ([facility]) [address] [place] [address] 76104 ALP [Catalytic activity/Vol] 58 U/L Normal 33-110 [facility] Comment on above: Performed By: #### 2 4323-8 #### FERNANDO GONZALEZ ([id number]) [facility] ([facility]) [address] [place] [address] 03703 ALT With P-5'-P [Catalytic activity/Vol] 22 U/L Normal 7-45 [facility] Comment on above: Result Comment: Nelda ents treated with Sulfasalazine may generate falsely decreased results for ALT. Performed By: #### 2 4323-8 #### FERNANDO GONZALEZ ([id number]) [facility] ([facility]) [facility] [place] [address] Anion gap [Moles/Vol] 11 mmol/L Normal 10-20 [facility] Comment on above: Performed By: #### 2 4323-8 #### FERNANDO GONZALEZ ([id number]) [facility] ([facility]) [facility] [place] [address] AST With P-5'-P [Catalytic activity/Vol] 15 U/L Normal 9-39 [facility] Comment on above: Performed By: #### 2 4323-8 #### FERNANDO GONZALEZ ([id number]) [facility] ([facility]) [facility] [place] [address] Bilirubin [Mass/Vol] 0.3 mg/dL Normal 0.0-1.2 [facility] Comment on above: Performed By: #### 2 4323-8 #### FERNANDO GONZALEZ ([id number]) [facility] ([facility]) [address] [place] [address] 27599 Calcium [Mass/Vol] 9.3 mg/dL Normal 8.6-10.[address] [facility] Comment on above: Performed By: #### 2 4323-8 #### FERNANDO GONZALEZ ([id number]) [facility] ([facility]) [address] [place] [address] 82006 Chloride [Moles/Vol] 99 mmol/L Normal 98-107 [facility] Comment on above: Performed By: #### 2 4323-8 #### FERNANDO GONZALEZ ([id number]) [facility] ([facility]) [address] [place] [address] 04924 CO2 [Moles/Vol] 28 mmol/L Normal 21-32 [facility] Comment on above: Performed By: #### 2 4323-8 #### FERNANDO GONZALEZ ([id number]) [facility] ([facility]) [address] [place] [address] 64490 Creatinine [Mass/Vol] 0.70 mg/dL Normal 0.50-1.05 [facility] Comment on above: Performed By: #### 2 4323-8 #### FERNANDO GONZALEZ ([id number]) [facility] ([facility]) [address] [place] [address] 54868 GFR/1.73 sq M.predicted MDRD (S/P/Bld) [Vol rate/Area] mL/min/{1.73_m2} Normal >60 [facility] Comment on above: Result Comment: Calc ulations of estimated GFR are performed using the 2020 CKD-EPI Study Refit equation without the race variable for the IDMS-Traceable creatinine methods. https://jasn.asnjournals.org/content/early//ASN.2020 278756 Performed By: #### 2 4323-8 #### FERNANDO GONZALEZ ([id number]) [facility] ([facility]) [address] [place] [address] Glucose [Mass/Vol] 94 mg/dL Normal 74-[address] [facility] Comment on above: Performed By: #### 2 4323-8 #### FERNANDO GONZALEZ ([id number]) [facility] ([facility]) [address] [place] [address] 18222 Potassium [Moles/Vol] 3.7 mmol/L Normal 3.5-5.3 [facility] Comment on above: Performed By: #### 2 4323-8 #### FERNANDO GONZALEZ ([id number]) [facility] ([facility]) [address] [place] [address] 00050 Protein [Mass/Vol] 7.2 g/dL Normal 6.4-8.[address] [facility] Comment on above: Performed By: #### 2 4323-8 #### FERNANDO GONZALEZ ([id number]) [facility] ([facility]) [address] [place] [address] 60861 Sodium [Moles/Vol] 134 mmol/L Low 136-[address] [facility] Comment on above: Performed By: #### 2 4323-8 #### FERNANDO GONZALEZ ([id number]) [facility] ([facility]) [address] [place] [address] 15196 Urea nitrogen [Mass/Vol] 10 mg/dL Normal 6-23 [facility] Comment on above: Performed By: #### 2 4323-8 #### FERNANDO GONZALEZ ([id number]) [facility] ([facility]) [address] [place] [address] 35844 ECG 12-LEADon 03-28-2024 ECG 12-LEAD Ventricular Rate 126 Atrial Rate 126 P-R Interval 150 QRS Duration 82 Q-T Interval 296 QTC Calculation(Bazett) 428 P Monterey 60 R Monterey 78 T Monterey -2 QRS Count 21 Q Onset 220 P Onset 145 P Offset 192 T Offset 368 QTC Fredericia 379 Diagnosis Sinus tachycardia Possible Left atrial enlargement Nonspecific T wave abnormality Abnormal ECG No previous ECGs available See ED provider note for full interpretation and clinical correlation Confirmed by Jenny Elizabeth ([id number]) on 04/04/2024 5:48:06 PM Normal [facility] HCG.beta subunit Qnon 2023 Interpretation and review of laboratory results Abnormal [facility] Total HCG measuremen t is performed using the Gaviota Carmichael Access Immunoassay which detects intact HCG and free beta HCG subunit. This test is not indicated for use as a tumor marker. HCG testing is performed using a different test methodology at [facility] than other [facility]. Direct result comparison should only be made within the same method. [facility] US OB LESS THAN 14 WEEKS EAR [place] 03-28-2024 US OB LESS THAN 14 WEEKS EARLY Interpreted By: Lacey Farias, STUDY: US OB LESS THAN 14 WEEKS EARLY; 03/28/2024 8:59 pm INDICATION: Signs/Symptoms:RLQ pain, + preg at home. COMPARISON: None. ACCESSION NUMBER(S): [id number] ORDERING CLINICIAN: ALEXA DUVALL TECHNIQUE: Multiple ultrasonographic images of the pelvis were obtained. Transabdominal and transvaginal ultrasound was performed. FINDINGS: UTERUS: Uterus measures 8.7 x 3.4 x 4.4 cm. Endometrial echo complex measures 8 mm. A few nabothian cysts are seen in the cervix. There is no sign of an intrauterine at this time. MATERNAL ANATOMY: RIGHT ADNEXA: No sign of right adnexal mass. Right ovarian volume of 13.5 mL is normal. Normal arterial inflow and venous outflow documented. LEFT ADNEXA: No sign of left adnexal mass. Left ovary measures 2.7 x 2.0 x 2.3 cm. Normal arterial inflow and venous outflow documented in the left ovary. No free fluid in the pelvis IMPRESSION: 1. Normal ultrasound of the uterus and ovaries. There is no sign of an intrauterine gestation at this time. These findings are consistent with ectopic , spontaneous or very early intrauterine . Clinical correlation and follow-up are necessary MACRO: None Signed by: Lacey Farias 03/28/2024 9:55 PM Dictation workstation: [id number] [facility] US for in first tr imesteron 03-28-2024 1. Normal ultrasound of the uterus and ovaries. There is no sign of an intrauterine gestation at this time. These findings are consistent with ectopic , spontaneous or very early intrauterine . Clinical correlation and follow-up are necessary MACRO: None Signed by: Lacey Farias 03/28/2024 9:55 PM Dictation workstation: [id number] MMODAL Interpreted By: Lacey Farias, STUDY: US OB LESS THAN 14 WEEKS EARLY; 03/28/2024 8:59 pm INDICATION: Signs/Symptoms:RLQ pain, + preg at home. COMPARISON: None. ACCESSION NUMBER(S): [id number] ORDERING CLINICIAN: ALEXA DUVALL TECHNIQUE: Multiple ultrasonographic images of the pelvis were obtained. Transabdominal and transvaginal ultrasound was performed. FINDINGS: UTERUS: Uterus measures 8.7 x 3.4 x 4.4 cm. Endometrial echo complex measures 8 mm. A few nabothian cysts are seen in the cervix. There is no sign of an intrauterine at this time. MATERNAL ANATOMY: RIGHT ADNEXA: No sign of right adnexal mass. Right ovarian volume of 13.5 mL is normal. Normal arterial inflow and venous outflow documented. LEFT ADNEXA: No sign of left adnexal mass. Left ovary measures 2.7 x 2.0 x 2.3 cm. Normal arterial inflow and venous outflow documented in the left ovary. No free fluid in the pelvis MMODAL Lacey Farias MD - 03/28/2024 Interpreted By: Lacey Farias, STUDY: US OB LESS THAN 14 WEEKS EARLY; 03/28/2024 8:59 pm INDICATION: Signs/Symptoms:RLQ pain, + preg at home. COMPARISON: None. ACCESSION NUMBER(S): [id number] ORDERING CLINICIAN: ALEXA DUVALL TECHNIQUE: Multiple ultrasonographic images of the pelvis were obtained. Transabdominal and transvaginal ultrasound was performed. FINDINGS: UTERUS: Uterus measures 8.7 x 3.4 x 4.4 cm. Endometrial echo complex measures 8 mm. A few nabothian cysts are seen in the cervix. There is no sign of an intrauterine at this time. MATERNAL ANATOMY: RIGHT ADNEXA: No sign of right adnexal mass. Right ovarian volume of 13.5 mL is normal. Normal arterial inflow and venous outflow documented. LEFT ADNEXA: No sign of left adnexal mass. Left ovary measures 2.7 x 2.0 x 2.3 cm. Normal arterial inflow and venous outflow documented in the left ovary. No free fluid in the pelvis IMPRESSION: 1. Normal ultrasound of the uterus and ovaries. There is no sign of an intrauterine gestation at this time. These findings are consistent with ectopic , spontaneous or very early intrauterine . Clinical correlation and follow-up are necessary MACRO: None Signed by: Lacey Farias 03/28/2024 9:55 PM Dictation workstation: [id number] [facility] Work Phone: Radiology Study observation (narrative) [facility] Work Phone: US for in first tr imesterOrdered By: Lacey Farias on 03-28-2024 [facility] Work Phone: Urinalysis complete W Reflex Culture panel (U)on 03-28-2024 Appearance (U) Turbid Abnormal Clear [facility] Bacteria Auto (Urine sed) [#/Area] 2+ Abnormal NONE SEEN /HPF [facility] Bilirubin (U) [Mass/Vol] Negative NEGATIVE [facility] Color (U) Light-Yellow Light-Yellow, Yellow, Dark-Yellow [facility] Epithelial cells.squamous Auto (Urine sed) [#/Area] 1-9 (SPARSE) Reference range not established. /HPF [facility] Glucose Auto test strip (U) [Mass/Vol] Normal Normal mg/dL [facility] Interpretation and review of laboratory results Abnormal [facility] Ketones (U) [Mass/Vol] Negative NEGAT UYEN mg/dL [facility] Leukocyte esterase Auto test strip Ql (U) Negative NEGATIVE [facility] Nitrite Auto test strip Ql (U) Negative NEGATIVE [facility] pH (U) 6.5 [pH] 5.0, 5.5, 6.0, 6.5, 7.0, 7.5, 8.0 [facility] Protein (U) [Mass/Vol] 10 (TRACE) NEGAT UYEN, 10 (TRACE), 20 (TRACE) mg/dL [facility] RBC (U) [#/Vol] OVER (3+) Abnormal NEGATIVE [facility] RBC Auto (Urine sed) [#/Area] 3-5 NONE, 1-2, 3-5 /HPF [facility] Specific gravity (U) [Rel density] 1.010 1.005 - 1.035 [facility] Urobilinogen (U) [Mass/Vol] Normal Normal mg/dL [facility] WBC Auto (Urine sed) [#/Area] 1-5 1-5, NONE /HPF [facility] Appearance (U) Turbid Normal Clear [facility] Comment on above: Performed By: #### 5 8077-9 #### FERNANDO GONZALEZ ([id number]) [facility] ([facility]) [address] [place] [address] Bacteria Auto (Urine sed) [#/Area] 2+ /HPF Abnormal NONE SEEN [facility] Comment on above: Performed By: #### 5 8077-9 #### FERNANDO GONZALEZ ([id number]) [facility] ([facility]) [address] [place] [address] Bilirubin (U) [Mass/Vol] Negative Normal NEGATIVE [facility] Comment on above: Performed By: #### 5 8077-9 #### FERNANDO GONZALEZ ([id number]) [facility] ([facility]) [address] [place] [address] Color (U) Light-Yellow Normal Light-Yellow, Yellow, Dark-Yellow [facility] Comment on above: Performed By: #### 5 8077-9 #### FERNANDO GONZALEZ ([id number]) [facility] ([facility]) [address] [place] [address] Epithelial cells.squamous Auto (Urine sed) [#/Area] 1-9 (SPARSE) Normal Reference range not established. [facility] Comment on above: Performed By: #### 5 8077-9 #### FERNANDO GONZALEZ ([id number]) [facility] ([facility]) [address] [place] [address] Glucose Auto test strip (U) [Mass/Vol] Normal Normal Normal [facility] Comment on above: Performed By: #### 5 8077-9 #### FERNANDO GONZALEZ ([id number]) [facility] ([facility]) [address] [place] [address] 08905 Ketones (U) [Mass/Vol] Negative Normal NEGATIVE [facility] Comment on above: Performed By: #### 5 8077-9 #### FERNANDO GONZALEZ ([id number]) [facility] ([facility]) [address] [place] [address] 75490 Leukocyte esterase Auto test strip Ql (U) Negative Normal NEGATIVE [facility] Comment on above: Performed By: #### 5 8077-9 #### FERNANDO GONZALEZ ([id number]) [facility] ([facility]) [address] [place] [address] 17600 Nitrite Auto test strip Ql (U) Negative Normal NEGATIVE [facility] Comment on above: Performed By: #### 5 8077-9 #### FERNANDO GONZALEZ ([id number]) [facility] ([facility]) [address] [place] [address] 80536 pH (U) 6.5 [pH] Normal 5.0, 5.5, 6.0, 6.5, 7.0, 7.5, 8.0 [facility] Comment on above: Performed By: #### 5 8077-9 #### FERNANDO GONZALEZ ([id number]) [facility] ([facility]) [address] [place] [address] 40410 Protein (U) [Mass/Vol] 10 (TRACE) Normal NEGAT UYEN, 10 (TRACE), 20 (TRACE) [facility] Comment on above: Performed By: #### 5 8077-9 #### FERNANDO GONZALEZ ([id number]) [facility] ([facility]) [address] [place] [address] 73448 RBC (U) [#/Vol] OVER (3+) Abnormal NEGATIVE [facility] Comment on above: Performed By: #### 5 8077-9 #### FERNANDO GONZALEZ ([id number]) [facility] ([facility]) [address] [place] [address] 20114 RBC Auto (Urine sed) [#/Area] 3-5 Normal NONE, 1-2, 3-5 [facility] Comment on above: Performed By: #### 5 8077-9 #### FERNANDO GONZALEZ ([id number]) [facility] ([facility]) [address] [place] [address] 55101 Specific gravity (U) [Rel density] 1.010 Normal 1.005-1.035 [facility] Comment on above: Performed By: #### 5 8077-9 #### FERNANDO GONZALEZ ([id number]) [facility] ([facility]) [address] [place] [address] 06260 Urobilinogen (U) [Mass/Vol] Normal Normal Normal [facility] Comment on above: Performed By: #### 5 8077-9 #### FERNANDO GONZALEZ ([id number]) [facility] ([facility]) [address] [place] [address] 40651 WBC Auto (Urine sed) [#/Area] 1-5 Normal 1-5, NONE [facility] Comment on above: Performed By: #### 5 8077-9 #### FERNANDO GONZALEZ ([id number]) [facility] ([facility]) [address] [place] [address] 06751 hCG, quantitative, on 03-28-2024 HCG.beta subunit Qn 175 m[IU]/mL High [facility] Comment on above: Low-level positive H CG results can be seen in early , in sruthi- or post-menopausal females due to normal pituitary HCG production, or with analytic interference. Repeat testing in 48-72 hours can aid in assessing for as results should double in this time period. FSH measurement is recommended in sruthi- or post-menopausal females as concurrent elevation of FSH can support pituitary production as the source of the HCG elevation. HCG, Beta Quantitativeon HCG.beta subunit Qn 91 m[IU]/mL Abnormal [facility] [address] Work Phone: Comment on above: Low-level positive H CG results can be seen in early , in sruthi- or post-menopausal females due to normal pituitary HCG production, or with analytic interference. Repeat testing in 48-72 hours can aid in assessing for as results should double in this time period. FSH measurement is recommended in sruthi- or post-menopausal females as concurrent elevation of FSH can support pituitary production as the source of the HCG elevation.. Total HCG measurement is performed using the Gaviota Karli Access Immunoassay which detects intact HCG and free beta HCG subunit. This test is not indicated for use as a tumor marker. HCG testing is performed using a different test methodology at [facility] than other [facility]. Direct result comparison should only be made within the same method. REF VALUESNON FEMALE <5MALES <5 HCG,BETA-QUANTITATIVEon 08-01 HCG,BETA-QUANTITATIVE 91 mIU/mL Abnormal [facility] Comment on above: Result Comment: Low- level positive HCG results can be seen in early , in sruthi- or post-menopausal females due to normal pituitary HCG production, or with analytic interference. Repeat testing in 48-72 hours can aid in assessing for as results should double in this time period. FSH measurement is recommended in sruthi- or post-menopausal females as concurrent elevation of FSH can support pituitary production as the source of the HCG elevation. . Total HCG measurement is performed using the Gaviota Carmichael Access Immunoassay which detects intact HCG and free beta HCG subunit. This test is not indicated for use as a tumor marker. HCG testing is performed using a different test methodology at [facility] than [facility]. Direct result comparison should only be made within the same method. REF VALUES NON FEMALE <5 MALES <5 Performed By: #### H CGQU #### [address] [address] ABO/RH GROUP TESTon 08-09-20 21 ABO TYPE O Normal [facility] Comment on above: Performed By: #### A LILA #### [address] [address] RH TYPE Positive Normal [facility] Comment on above: Performed By: #### A LILA #### [address] [address] BASIC METABOLIC PANELon 11-0 Anion gap [Moles/Vol] 11 mmol/L Normal - [facility] Comment on above: Performed By: #### B MP #### [address] [address] Calcium [Mass/Vol] 9.3 mg/dL Normal 8.6 - 10.3 [facility] Comment on above: Performed By: #### B MP #### [address] [address] Chloride [Moles/Vol] 103 mmol/L Normal 98 - 107 [facility] Comment on above: Performed By: #### B MP #### [address] [address] Creatinine [Mass/Vol] 0.64 mg/dL Normal 0.50 - 1.05 [facility] Comment on above: Performed By: #### B MP #### [address] [address] GFR- AM. >60 Normal >60 [facility] Comment on above: Result Comment: CALC ULATIONS OF ESTIMATED GFR ARE PERFORMED USING THE MDRD STUDY EQUATION FOR THE IDMS-TRACEABLE CREATININE METHODS. CLIN CHEM 2007;53:766-72 Performed By: #### B MP #### [address] [address] GFR-NON AM. >60 Normal >60 [facility] Comment on above: Performed By: #### B MP #### [address] [address] Glucose [Mass/Vol] 79 mg/dL Normal 74 - 99 [facility] Comment on above: Performed By: #### B MP #### [address] [address] HCO3 (Bld) [Moles/Vol] 28 mmol/L Normal 21 - 32 [facility] Comment on above: Performed By: #### B MP #### [address] [address] Potassium [Moles/Vol] 3.8 mmol/L Normal 3.5 - 5.3 [facility] Comment on above: Performed By: #### B MP #### [address] [address] Sodium [Moles/Vol] 138 mmol/L Normal 136 - 145 [facility] Comment on above: Performed By: #### B MP #### [address] [address] Urea nitrogen [Mass/Vol] 6 mg/dL Normal 6 - 23 [facility] Comment on above: Performed By: #### B MP #### [address] [address] Blood Typing (ABO + Rho D)on 08-09-2021 ABO group Nom (Bld) O [facility] [address] Work Phone: [phone] Rh immune globulin screen (Bld) [Interp] Positive [facility] [address] [employer] Work Phone: [phone] CBCon 08-09-2021 Erythrocyte distribution width (RBC) [Ratio] 12.1 % Normal 11.5 - 14.5 [facility] Comment on above: Performed By: #### C BC #### [address] [address] Hematocrit (Bld) [Volume fraction] 42.0 % Normal 36.0 - 46.0 [facility] Comment on above: Performed By: #### C BC #### [address] [address] Hemoglobin (Bld) [Mass/Vol] 14.2 g/dL Normal 12.0 - 16.0 [facility] Comment on above: Performed By: #### C BC #### [address] [address] MCHC (RBC) [Mass/Vol] 33.8 g/dL Normal 32.0 - 36.0 [facility] Comment on above: Performed By: #### C BC #### [address] [address] MCV (RBC) [Entitic vol] 93 fL Normal 80 - [address] [facility] Comment on above: Performed By: #### C BC #### [address] [address] NUCLEATED RBC 0.0 /100 WBC Normal 0.0 - 0.0 [facility] Comment on above: Performed By: #### C BC #### [address] [place] [address] Platelets (Bld) [#/Vol] 332 10*3/uL Normal 150 - 450 [facility] Comment on above: Performed By: #### C BC #### [facility] [address] [place] [address] RBC 4.54 x10E12/L Normal 4.00 - 5.20 [facility] Comment on above: Performed By: #### C BC #### [facility] [address] [place] [address] WBC (Bld) [#/Vol] 8.2 10*3/uL Normal 4.4 - 11.3 [facility] Comment on above: Performed By: #### C BC #### [facility] [address] [place] [address] HCG, Beta Quantitativeon HCG.beta subunit Qn 161 m[IU]/mL Abnormal [facility] [address] Work Phone: Comment on above: Low-level positive H CG results can be seen in early , in sruthi- or post-menopausal females due to normal pituitary HCG production, or with analytic interference. Repeat testing in 48-72 hours can aid in assessing for as results should double in this time period. FSH measurement is recommended in sruthi- or post-menopausal females as concurrent elevation of FSH can support pituitary production as the source of the HCG elevation.. Total HCG measurement is performed using the Gaviota Carmichael Access Immunoassay which detects intact HCG and free beta HCG subunit. This test is not indicated for use as a tumor marker. HCG testing is performed using a different test methodology at [facility] than other [facility]. Direct result comparison should only be made within the same method. REF VALUESNON FEMALE <5MALES <5 HCG,BETA-QUANTITATIVEon 11-0 HCG,BETA-QUANTITATIVE 161 mIU/mL Abnormal [facility] Comment on above: Result Comment: Low- level positive HCG results can be seen in early , in sruthi- or post-menopausal females due to normal pituitary HCG production, or with analytic interference. Repeat testing in 48-72 hours can aid in assessing for as results should double in this time period. FSH measurement is recommended in sruthi- or post-menopausal females as concurrent elevation of FSH can support pituitary production as the source of the HCG elevation. . Total HCG measurement is performed using the Gaviota Karli Access Immunoassay which detects intact HCG and free beta HCG subunit. This test is not indicated for use as a tumor marker. HCG testing is performed using a different test methodology at [facility] than other [facility]. Direct result comparison should only be made within the same method. REF VALUES NON FEMALE <5 MALES <5 Performed By: #### H CGQU #### [facility] [address] [place] [address] Laboratory - Chemistry and C hemistry - challengeon 08-09-2021 Anion gap [Moles/Vol] 11 mmol/L 10 - 20 [facility] [address] Work Phone: [phone] Calcium [Mass/Vol] 9.3 mg/dL 8.6 - 10.3 [facility] [address] Work Phone: [phone] Chloride [Moles/Vol] 103 mmol/L 98 - 107 [facility] [address] Work Phone: [phone] CO2 [Moles/Vol] 28 mmol/L 21 - 32 [facility] [address] Work Phone: [phone] Creatinine [Mass/Vol] 0.64 mg/dL See Below [facility] [address] Work Phone: [phone] Comment on above: Reference Range: 0.5 0 - 1.05 Glucose [Mass/Vol] 79 mg/dL 74 - 99 [facility] [address] Work Phone: [phone] Potassium [Moles/Vol] 3.8 mmol/L 3.5 - 5.3 [facility] [address] Work Phone: [phone] Sodium [Moles/Vol] 138 mmol/L 136 - 145 [facility] [address] Work Phone: [phone] Urea nitrogen [Mass/Vol] 6 mg/dL 6 - 23 [facility] [address] Work Phone: [phone] Laboratory - Hematology and Cell countson 08-09-2021 Erythrocyte distribution width (RBC) [Ratio] 12.1 % See Below [facility] [address] Work Phone: [phone] Comment on above: Reference Range: 11. 5 - 14.5 Hematocrit (Bld) [Volume fraction] 42.0 % See Below [facility] [address] Work Phone: [phone] Comment on above: Reference Range: 36. 0 - 46.0 Hemoglobin (Bld) [Mass/Vol] 14.2 g/dL See Below [facility] [address] Work Phone: [phone] Comment on above: Reference Range: 12. 0 - 16.0 MCHC (RBC) [Mass/Vol] 33.8 g/dL See Below [facility] [address] Work Phone: [phone] Comment on above: Reference Range: 32. 0 - 36.0 MCV (RBC) [Entitic vol] 93 fL 80 - 100 [facility] [address] Work Phone: [phone] Platelets (Bld) [#/Vol] 332 10*3/uL 150 - 450 [facility] [address] Work Phone: [phone] RBC (Bld) [#/Vol] 4.54 {x10E12/L} See Below [facility] [address] Work Phone: [phone] Comment on above: Reference Range: 4.0 0 - 5.20 WBC (Bld) [#/Vol] 8.2 10*3/uL 4.4 - 11.3 [facility] [address] Work Phone: [phone] Panel Informationon 08-09 >60 >60 [facility] [address] Work Phone: [phone] Comment on above: CALCULATIONS OF FABBY MATED GFR ARE PERFORMED USING THE MDRD STUDY EQUATION FOR THE IDMS-TRACEABLE CREATININE METHODS. CLIN CHEM 2007;53:766-72 0.0 {/100_WBC} 0.0 - 0.0 [facility] [address] Work Phone: Provider Note - ED v3on 11-0 Provider Note - ED v3 Provider Note: Chart Review: ED NOTES ED NOTES: HPI: Patient presents for pelvic cramping and vaginal spotting. She states that she is about 5 and half weeks . Her first . She noticed the spotting and cramping yesterday and then into today but states is now resolved. She otherwise has no other complaints denies any other part medical history sitting comfortably in the bed in no acute distress. Review of systems: Positive as above otherwise negative in all rodriguez. Physical Exam: Appearance: Alert, oriented , cooperative, in no acute distress. Well nourished & well hydrated. Skin: Intact, dry skin, no lesions, rash, petechiae or purpura. Neck: Supple, without meningismus. Thyroid not palpable. Trachea at midline. No lymphadenopathy. No midline spinal tenderness or deformity. Pulmonary: Clear bilaterally with good chest wall excursion. No rales, rhonchi or wheezing. No accessory muscle use or stridor. Cardiac: Normal S1, S2 without murmur, rub, gallop or extrasystole. No JVD, Carotids without bruits. Abdomen: Soft, nontender, active bowel sounds. No palpable organomegaly. No rebound or guarding. No CVA tenderness. Genitourinary: Exam deferred. Musculoskeletal: Full range of motion. no pain, edema, or deformity. Pulses full and equal. No cyanosis, clubbing, or edema. Neurological: normal sensation, no weakness, no focal findings identified. Psychiatric: Appropriate mood and affect. MDM: Urinalysis and laboratory studies obtained. Urinalysis shows trace blood. Laboratory studies unremarkable other than low hCG at 121 and patient's blood type was O+. Patient will be following up in [place] if she is moving there this week. She was given a order for a repeat 48-hour hCG quantitative test. I spoke with her CLINICAL RESEARCH PHYSICIAN Dr. Jimenez who she would be following up with and would plan to follow-up with her on Sunday patient was informed of this. Disclaimer: This note was dictated by speech recognition. Minor errors in industrial methods consultant may be present. Please call if questions. HISTORY OF PRESENTING ILLNESS MILLIE is a 25 year old Female and was seen by me at 09-Nov-2021 17:04 for a chief complaint of abdominal pain (patient arrives to ED via private auto with complaints of abdominal cramping (rates 1/10) and vaginal bleeding that began last evening (5 weeks ). Brown to bright red in color. Denies passing clots. States the blood has subsided upon arrival to ER.) . Triage Information: Most recent Vital Sign Value Date Temp (F): 97.7 08-09-2021 16:23 Temp (C): 36.5 08-09-2021 16:23 Respirations (breaths/min): 20 08-09-2021 16:23 SpO2 (%): 100 08-09-2021 16:23 BP Systolic (mm Hg): 129 08-09-2021 16:23 BP Diastolic (mm Hg): 68 08-09-2021 16:23 PAST MEDICAL HISTORY ALLERGIES/INTOLERANCE S: Allergy Allergen: Zithromax Type: Drug Reaction: Unknown Allergen: amoxicillin Type: Drug Reaction: Unknown HEALTH HISTORY: No documented data. OUTPATIENT MEDICATIONS: Home Medications Review Status for Reconciliation: N/A Med Status: N/A No documented data. SIGNIFICANT EVENTS: Past Medical History Description:denies DISPOSITION Diagnosis/Annotation: ED Dx Name:Bleeding in early Code:O20.9 Disposition: discharged Type: home CONSULT CRITICAL CARE TIME Is this a critically ill patient: no Electronic Signatures: Henry uBrger () (Signed 09-Aug-2021 20:09) Authored: ED Notes, HPI, PMH, Clinical Impression, Attestation, Chart Review, Scores Last Updated: 09-Aug-2021 20:09 by Henry Burger () References: 1. Data Referenced From Triage - ED 09-Aug-2021 16:23 Normal [facility] Risk Screen - Adult Emergenc yon 08-09-2021 Risk Screen - Adult Emergency Preferred Language: Preferred Language: Preferred Language for Discussing Health Care (patient/designee)Ethan busby Advanced Directives: Advance Directive/DNRno Advance Directive Information Givenpatient/family declined Family Violence Adult: Abuse Screen: Are you or have you been threatened or abused physically, emotionally, or sexually by anyoneno Learning Assessment (Patient): Learning Assessment (Patient): Patient is Able to be Assessed for Learningyes Factors Influencing Readiness to Learnanxiety; pain Factors that Impact Ability to Learnnone Devices/Methods Used to Communicatenone Learning Preferenceswritten material; verbal instruction Cultural Considerationsnone Developmental Considerationsnone Hinduism Considerationsnone Learning Assessment (Other Learner): Learning Assessment (Other Learner): Other learner availableno Pressure Injury/TB/Substance: Pressure Injury: Pressure Injury Present on Admissionno Do you have a coughno Smoking Statusnever smoker Drug Usedenies Resources Offerednot appropriate Admission Risk Screen: Significant IndicatorsComplete CAGE: CAGE: Is this an injured patient at a Trauma Center ([facility]/[place]/[facility]/[place]): yes C: Have you ever felt you needed to Cut down on your drinking: no A: Have people Annoyed you by criticizing your drinking: no G: Have you ever felt Guilty about drinking: no E: Have you ever felt you needed a drink first thing in the morning (Eye-apprentice) to steady your nerves or to get rid of hangover: no Electronic Signatures: Rose Alfaro (RN) (Signed 09-Aug-2021 16:28) Authored: Preferred Language, Advanced Directives, Family Violence Adult, Learning Assessment (Patient), Learning Assessment (Other Learner), Pressure Injury/TB/Substance, Pressure Injury, CAGE Last Updated: 09-Aug-2021 16:28 by Rose Alfaro (RN) Normal [facility] Triage - EDon 08-09-2021 Triage - ED Quick Triage: Are You yes Have You Given In The Last 6 Weeksno Are You Currently Breastfeedingno Chart Review: PRIMARY ASSESSMENT MILLIE DELA CRUZ's primary assessment is Within Defined Limits. The airway is open and patent. Breathing spontaneous and unlabored with clear breath sounds bilaterally. Circulation is normal with good peripheral pulses. Skin is warm and dry and color is normal for race. ARRIVAL INFORMATION Means of Arrival: Ambulatory Mode of Arrival: private vehicle Arrival From: home Accompanied By: self Language: Spoken Language Preferred: Senegalese Reading Language Preferred: Senegalese Coil Winder Strap Requested: no behavioral health clinician was requested MDRO: History of MDRO: no Present on Arrival: Device Present on Arrival to ED: no Pressure Ulcer Present on Arrival to ED: no CHIEF COMPLAINT MILLIE DELA CRUZ is a Female patient with a chief complaint of abdominal pain (patient arrives to ED via private auto with complaints of abdominal cramping (rates 1/10) and vaginal bleeding that began last evening (5 weeks ). Brown to bright red in color. Denies passing clots. States the blood has subsided upon arrival to ER.). Triage Date/Time: 09-Aug-2021 16:23 [place]: 3V Pain Rating (0-10): 1 = Mild Vital Signs: Temperature: 97.7F ( 36.5C) taken forehead Blood Pressure: 129/68 Mean: Respiratory Rate: 20 Pulse Oximetry: 100% on room air, no respiratory support. Height: 5 feet 2.00 inches. 157.4 CM Weight: 220.4 pounds. Calculated 100.0 kg. (stated) Calculated BMI (kg/m2): 40.363 Calculated BSA (m2) 2.09 Ernesto Coma Scale: Best Eye Response: (E4) spontaneous Best Motor Response: (M6) obeys commands Best Verbal Response: (V5) oriented Ernesto Score: 15 Cough lasting greater than 3 weeks: no Allergies: yes Mask applied: yes Patient has homicidal thoughts: no Symptoms Are Negative For: anorexia, constipation, diaphoresis, diarrhea, distention, fever, nausea, rectal blood and vomiting. Risk Screens Suicide Risk Screen In the Past Month: Have you wished you were or wished you could go to sleep and not wake up no In the Past Month: Have you had any actual thoughts of killing yourself no In Your Lifetime: Have you ever done anything, started to do anything, or prepared to do anything to end your life no Phipps Fall Scale Screening Has the patient fallen before (or is the patient in the ED as a result of a fall) has not had a fall Does the patient have an impaired gait does not have impaired gait Is the patient cognitively impaired not cognitively impaired Interventions: Phipps Fall Interventions: LOW INTERVENTIONS: *patient oriented to surroundings and call system, * patient/family falls education completed and documented, *patients fall status communicated during bedside handoff, *whiteboard updated, *mode of toileting discussed with patient, *bed in low position with brakes locked, *call light in reach, * non-skid footwear TRAVEL HISTORY Travel History Coronavirus Screening: no exposure or symptoms Travel Exposure History: NO travel to International locations in the past 30 days PAIN Pain Scale Used: MUSHTAQ Pain Rating (0-10): 1 = Mild Past Medical History: Past Medical History Reviewedyes denies: Past Medical History, Active Electronic Signatures: Rose Alfaro (RN) (Signed 09-Aug-2021 16:47) Authored: Quick Triage, Risk Screens, Pain, Arrival, ABCD, Travel History, Chart Review, Scores, Past Medical History Last Updated: 09-Aug-2021 16:47 by Rose Alfaro (RN) Normal [facility] UA MICROSCOPICon 08-09-2021 BACTERIA 1+ /HPF Abnormal [facility] Comment on above: Performed By: #### U AMIC #### [facility] [address] [place] [address] RBC (U) [#/Vol] /uL Normal 0-5 [facility] Comment on above: Performed By: #### U AMIC #### [facility] [address] [place] [address] SQUAMOUS EPITH. CELLS 1 /HPF Normal [facility] Comment on above: Performed By: #### U AMIC #### [facility] [address] [place] [address] WBC none Normal 0-5 [facility] Comment on above: Performed By: #### U AMIC #### [facility] [address] [place] [address] WBC CLUMPS RARE Normal [facility] Comment on above: Performed By: #### U AMIC #### [facility] [address] [place] [address] URINALYSISon 08-09-2021 Appearance (U) CLEAR Normal CLEAR [facility] Comment on above: Performed By: #### U A #### [facility] [address] [place] [address] Bilirubin Ql (U) Negative Normal NEGATIVE [facility] Comment on above: Performed By: #### U A #### [facility] [address] [place] [address] Color (U) STRAW Normal STRAW,YELLOW [facility] Comment on above: Performed By: #### U A #### [facility] [address] [place] [address] Glucose Ql (U) Negative Normal NEGATIVE [facility] Comment on above: Performed By: #### U A #### [address] [place] [address] Hemoglobin Ql (U) LARGE (3+) Abnormal NEGATIVE [facility] Comment on above: Performed By: #### U A #### [address] [place] [address] Ketones Ql (U) Negative Normal NEGATIVE [facility] Comment on above: Performed By: #### U A #### [address] [place] [address] Leukocyte esterase Test strip Ql (U) Negative Normal NEGATIVE [facility] Comment on above: Performed By: #### U A #### [address] [place] [address] Nitrite Ql (U) Negative Normal NEGATIVE [facility] Comment on above: Performed By: #### U A #### [address] [place] [address] pH (U) 7.0 [pH] Normal 5.0 - 8.0 [facility] Comment on above: Performed By: #### U A #### [address] [place] [address] Protein Ql (U) Negative Normal NEGATIVE [facility] Comment on above: Performed By: #### U A #### [address] [address] Specific gravity (U) [Rel density] 1.004 Low 1.005 - 1.035 [facility] Comment on above: Performed By: #### U A #### [address] [place] [address] Urobilinogen (U) [Mass/Vol] mg/dL Normal 0.0 - 1.9 [facility] Comment on above: Performed By: #### U A #### [address] [address] Urinalysison 08-09-2021 Color (U) STRAW See Below [facility] [address] [employer] Work Phone: Comment on above: Reference Range: STR AW,YELLOW Glucose Ql (U) Negative NEGATIVE [facility] [address] Work Phone: Ketones Ql (U) Negative NEGATIVE [facility] [address] Work Phone: [phone] Leukocyte esterase Test strip Ql (U) Negative NEGATIVE [facility] [address] Work Phone: [phone] pH (U) 7.0 [pH] 5.0 - 8.0 [facility] [address] Work Phone: [phone] Protein (U) [Mass/Vol] Negative NEGATIVE [facility] [address] [employer] Work Phone: [phone] RBC (U) [#/Vol] LARGE (3+) Abnormal NEGATIVE [facility] [address] [employer] Work Phone: [phone] Specific gravity (U) [Rel density] 1.004 1 below low threshold See Below [facility] [address] Work Phone: [phone] Comment on above: Reference Range: 1.0 05 - 1.035 Urinalysis Negative NEGATIVE [facility] [address] Work Phone: [phone] Urinalysis <2.0 0.0 - 1.9 [facility] [address] Work Phone: [phone] Urinalysis CLEAR CLEAR [facility] [address] [employer] Work Phone: [phone] Urinalysis, Microscopicon Urinalysis, Microscopic 1+ Abnormal [facility] [address] [employer] Work Phone: [phone] Urinalysis, Microscopic 1 {/HPF} [facility] [address] [employer] Work Phone: [phone] Urinalysis, Microscopic <1 0-5 [facility] [address] [employer] Work Phone: [phone] Urinalysis, Microscopic RARE [facility] [address] [employer] Work Phone: [phone] Urinalysis, Microscopic none 0-5 [facility] [address] [employer] Work Phone: [phone] Vital Signs Date Time Vital Sign Value Performing Clinician Facility 05-22-2025 09:28-0400 Body mass index (BMI) [Ratio] 40.8 kg/m2 Nicolette Bobo CUT OFF [employer] Work Phone: [facility] 05-22-2025 09:28-0400 Body weight 108.41 kg Nicolette Bobo [employer] Work Phone: [facility] 05-22-2025 09:28-0400 Diastolic blood pressure 91 mm[Hg] Nicolette Bobo [employer] Work Phone: [facility] 05-22-2025 09:28-0400 Systolic blood pressure 131 mm[Hg] Nicolette Bobo [employer] Work Phone: [facility] 05-19-2025 09:41-0400 Body mass index (BMI) [Ratio] 40.6 kg/m2 George Vieira MD Work Phone: [facility] 05-19-2025 09:41-0400 Body weight 107.86 kg George Vieira MD Work Phone: [facility] 05-19-2025 09:41-0400 Diastolic blood pressure 82 mm[Hg] George Vieira MD Work Phone: [facility] 05-19-2025 09:41-0400 Systolic blood pressure 120 mm[Hg] George Vieira MD Work Phone: [facility] 05-15-2025 11:00-0400 Body mass index (BMI) [Ratio] 40.12 kg/m2 Zahra Muniz MD Work Phone: [facility] 05-15-2025 11:00-0400 Body weight 106.59 kg Zahra Muniz MD Work Phone: [facility] 05-15-2025 11:00-0400 Diastolic blood pressure 94 mm[Hg] Zahra Muniz MD Work Phone: [facility] 05-15-2025 11:00-0400 Systolic blood pressure 136 mm[Hg] Zahra Muniz MD Work Phone: [facility] 05-14-2025 13:37-0400 Diastolic blood pressure 79 mm[Hg] No Primary Care Physician [facility] 05-14-2025 13:37-0400 Heart rate 91 /min No Primary Care Physician [facility] 05-14-2025 13:37-0400 Systolic blood pressure 123 mm[Hg] No Primary Care Physician [facility] 05-14-2025 11:41-0400 Body height 162.56 cm No Primary Care Physician [facility] 05-14-2025 11:41-0400 Body mass index (BMI) [Ratio] 40.3 kg/m2 No Primary Care Physician [facility] 05-14-2025 11:41-0400 Body weight 106.59 kg No Primary Care Physician [facility] 05-14-2025 11:25-0400 Body temperature 98.4 [degF] No Primary Care Physician [facility] 05-14-2025 11:25-0400 Respiratory rate 14 /min No Primary Care Physician [facility] 05-14-2025 11:25-0400 SaO2% (BldA) [Mass fraction] 99 % No Primary Care Physician [facility] 05-12-2025 14:21-0400 Body mass index (BMI) [Ratio] 40.15 kg/m2 George Vieira MD Work Phone: [facility] 05-12-2025 14:21-0400 Body weight 106.69 kg George Vieira MD Work Phone: [facility] 05-12-2025 14:21-0400 Diastolic blood pressure 86 mm[Hg] George Vieira MD Work Phone: [facility] 05-12-2025 14:21-0400 Systolic blood pressure 120 mm[Hg] George Vieira MD Work Phone: [facility] 05-06-2025 18:07-0400 Diastolic blood pressure 66 mm[Hg] No Primary Care Physician [facility] 05-06-2025 18:07-0400 Heart rate 82 /min No Primary Care Physician [facility] 05-06-2025 18:07-0400 Systolic blood pressure 111 mm[Hg] No Primary Care Physician [facility] 05-06-2025 18:03-0400 SaO2% (BldA) [Mass fraction] 100 % No Primary Care Physician [facility] 05-06-2025 14:37-0400 Body height 162.56 cm No Primary Care Physician [facility] 05-06-2025 14:37-0400 Body mass index (BMI) [Ratio] 39.4 kg/m2 No Primary Care Physician [facility] 05-06-2025 14:37-0400 Body weight 104.32 kg No Primary Care Physician [facility] 04-27-2025 13:34-0400 Body mass index (BMI) [Ratio] 39.27 kg/m2 Zahra Muniz MD Work Phone: [facility] 04-27-2025 13:34-0400 Body weight 104.33 kg Zahra Muniz MD Work Phone: [facility] 04-27-2025 13:34-0400 Diastolic blood pressure 79 mm[Hg] Zahra Muniz MD Work Phone: [facility] 04-27-2025 13:34-0400 Systolic blood pressure 127 mm[Hg] Zahra Muniz MD Work Phone: [facility] 04-21-2025 09:57-0400 Body mass index (BMI) [Ratio] 39.44 kg/m2 Zahra Muniz MD Work Phone: [facility] 04-21-2025 09:57-0400 Body weight 104.78 kg Zahra Muniz MD Work Phone: [facility] 04-21-2025 09:57-0400 Diastolic blood pressure 80 mm[Hg] Zahra Muniz MD Work Phone: [facility] 04-21-2025 09:57-0400 Systolic blood pressure 120 mm[Hg] Zahra Muniz MD Work Phone: [facility] 04-07-2025 15:50-0400 Body mass index (BMI) [Ratio] 39.1 kg/m2 Irene Mc APRN.CNM Work Phone: [facility] 04-07-2025 15:50-0400 Body weight 103.87 kg Irene Mc CUT OFF SAWYER.CNM Work Phone: [facility] 04-07-2025 15:50-0400 Diastolic blood pressure 72 mm[Hg] Irene Mc CUT OFF SAWYER.CNM Work Phone: [facility] 04-07-2025 15:50-0400 Systolic blood pressure 118 mm[Hg] Irene Alexandro CUT OFF SAWYER.CNM Work Phone: [facility] 03-25-2025 08:38-0400 Body mass index (BMI) [Ratio] 39.44 kg/m2 Merry White MD Work Phone: [facility] 03-25-2025 08:38-0400 Body weight 104.78 kg Merry White MD Work Phone: [facility] 03-25-2025 08:38-0400 Diastolic blood pressure 74 mm[Hg] Merry White MD Work Phone: [facility] 03-25-2025 08:38-0400 Systolic blood pressure 122 mm[Hg] Merry White MD Work Phone: [facility] 03-18-2025 14:58-0400 Body mass index (BMI) [Ratio] 39.1 kg/m2 Irene Mc APRN.CNM Work Phone: [facility] 03-18-2025 14:58-0400 Body weight 103.87 kg Irene Mc CUT OFF SAWYER.CNM Work Phone: [facility] 03-18-2025 14:58-0400 Diastolic blood pressure 79 mm[Hg] Irene Mc CUT OFF SAWYER.CNM Work Phone: [facility] Comment on above: TruBP Average 03-18-2025 14:58-0400 Systolic blood pressure 117 mm[Hg] Irene Mc CUT OFF SAWYER.CNM Work Phone: [facility] Comment on above: TruBP Average 02-25-2025 08:39-0400 Body mass index (BMI) [Ratio] 38.52 kg/m2 Marlene Jimenez APRN.PERFORMANCE TESTER Work Phone: [facility] 02-25-2025 08:39-0400 Body weight 102.33 kg Marlene Haury CUT OFF SAWYER.PERFORMANCE TESTER Work Phone: [facility] 02-25-2025 08:39-0400 Diastolic blood pressure 70 mm[Hg] Marlene Haury CUT OFF SAWYER.PERFORMANCE TESTER Work Phone: [facility] 02-25-2025 08:39-0400 Systolic blood pressure 116 mm[Hg] Marlene Haury CUT OFF SAWYER.PERFORMANCE TESTER Work Phone: [facility] 01-28-2025 09:06-0400 Body mass index (BMI) [Ratio] 36.54 kg/m2 Marlene Haury CUT OFF SAWYER.PERFORMANCE TESTER Work Phone: [facility] 01-28-2025 09:06-0400 Body weight 97.07 kg Marlene Haury CUT OFF SAWYER.PERFORMANCE TESTER Work Phone: [facility] 01-28-2025 09:06-0400 Diastolic blood pressure 72 mm[Hg] Marlene Haury CUT OFF SAWYER.PERFORMANCE TESTER Work Phone: [facility] 01-28-2025 09:06-0400 Systolic blood pressure 120 mm[Hg] Marlene Haury CUT OFF SAWYER.PERFORMANCE TESTER Work Phone: [facility] 12-31-2024 08:39-0400 Body mass index (BMI) [Ratio] 35.34 kg/m2 Merry White MD Work Phone: [facility] 12-31-2024 08:39-0400 Body weight 93.89 kg Merry White MD Work Phone: [facility] 12-31-2024 08:39-0400 Diastolic blood pressure 76 mm[Hg] Merry White MD Work Phone: [facility] 12-31-2024 08:39-0400 Systolic blood pressure 112 mm[Hg] Merry White MD Work Phone: [facility] 12-03-2024 08:32-0500 Body mass index (BMI) [Ratio] 33.46 kg/m2 Nicolette Plotts CUT OFF SAWYER.CNM Work Phone: [facility] 12-03-2024 08:32-0500 Body weight 88.91 kg Nicolette Danielsonts CUT OFF SAWYER.CNM Work Phone: [facility] 12-03-2024 08:32-0500 Diastolic blood pressure 74 mm[Hg] Nicolette Plotts CUT OFF SAWYER.CNM Work Phone: [facility] 12-03-2024 08:32-0500 Systolic blood pressure 106 mm[Hg] Nicolette Plotts CUT OFF SAWYER.CNM Work Phone: [facility] 10-31-2024 11:04-0500 Body height 163 cm Marlene Haury CUT OFF SAWYER.PERFORMANCE TESTER Work Phone: [facility] 10-31-2024 11:04-0500 Body mass index (BMI) [Ratio] 33.12 kg/m2 Marlene Haury CUT OFF SAWYER.PERFORMANCE TESTER Work Phone: [facility] 10-31-2024 11:04-0500 Body weight 88 kg Marlene Haury CUT OFF SAWYER.PERFORMANCE TESTER Work Phone: [facility] 10-31-2024 11:04-0500 Diastolic blood pressure 60 mm[Hg] Marlene Haury CUT OFF SAWYER.PERFORMANCE TESTER Work Phone: [facility] 10-31-2024 11:04-0500 Systolic blood pressure 120 mm[Hg] Marlene Haury CUT OFF SAWYER.PERFORMANCE TESTER Work Phone: [facility] 10-24-2024 09:04-0500 Body mass index (BMI) [Ratio] 32.61 kg/m2 George Vieira MD Work Phone: [facility] 10-24-2024 09:04-0500 Body weight 86.18 kg George Vieira MD Work Phone: [facility] 10-24-2024 09:04-0500 Diastolic blood pressure 72 mm[Hg] George Vieira MD Work Phone: [facility] 10-24-2024 09:04-0500 Systolic blood pressure 116 mm[Hg] George Vieira MD Work Phone: [facility] 10-16-2024 11:53-0500 Body mass index (BMI) [Ratio] 32.27 kg/m2 Marlene Jimenez APRN.PERFORMANCE TESTER Work Phone: [facility] 10-16-2024 11:53-0500 Body weight 85.28 kg Marlene Jimenez APRN.PERFORMANCE TESTER Work Phone: [facility] 10-16-2024 11:53-0500 Diastolic blood pressure 70 mm[Hg] Marlene Jimenez APRN.PERFORMANCE TESTER Work Phone: [facility] 10-16-2024 11:53-0500 Systolic blood pressure 118 mm[Hg] Marlene Jimenez APRN.PERFORMANCE TESTER Work Phone: [facility] 09-18-2024 10:11-0500 Body mass index (BMI) [Ratio] 30.73 kg/m2 Nurse Wstr Work Phone: [facility] 09-18-2024 10:11-0500 Body weight 81.19 kg Nurse Wstr Work Phone: [facility] 09-18-2024 10:11-0500 Diastolic blood pressure 70 mm[Hg] Nurse Wstr Work Phone: [facility] 09-18-2024 10:11-0500 Heart rate 82 /min Nurse Wstr Work Phone: [facility] 09-18-2024 10:11-0500 Systolic blood pressure 112 mm[Hg] Nurse Wstr Work Phone: [facility] 06-19-2024 09:38-0400 Body mass index (BMI) [Ratio] 30.42 kg/m2 Leona Enriquez APRN.PERFORMANCE TESTER Work Phone: [facility] 06-19-2024 09:38-0400 Body weight 80.38 kg Loena Enriquez APRN.PERFORMANCE TESTER Work Phone: [facility] 06-19-2024 09:38-0400 Diastolic blood pressure 76 mm[Hg] Leona Enriquez APRN.PERFORMANCE TESTER Work Phone: [facility] 06-19-2024 09:38-0400 Heart rate 90 /min Leona Enriquez APRN.PERFORMANCE TESTER Work Phone: [facility] 06-19-2024 09:38-0400 SaO2% (BldA) [Mass fraction] 100 % Leona Enriquez APRN.PERFORMANCE TESTER Work Phone: [facility] 06-19-2024 09:38-0400 Systolic blood pressure 128 mm[Hg] Leona Enriquez APRN.PERFORMANCE TESTER Work Phone: [facility] 03-28-2024 22:00-0400 Diastolic blood pressure 74 mm[Hg] [facility] 03-28-2024 22:00-0400 Heart rate 87 /min [facility] 03-28-2024 22:00-0400 Respiratory rate 17 /min [facility] 03-28-2024 22:00-0400 SaO2% (BldA) [Mass fraction] 98 % [facility] 03-28-2024 22:00-0400 Systolic blood pressure 111 mm[Hg] [facility] 03-28-2024 18:20-0400 Body temperature 98.91 [degF] [facility] 03-18-2024 14:05-0400 Body mass index (BMI) [Ratio] 32.3 kg/m2 Zahra Muniz MD Work Phone: [facility] 03-18-2024 14:05-0400 Body weight 85.37 kg Zahra Muniz MD Work Phone: [facility] 03-18-2024 14:05-0400 Diastolic blood pressure 76 mm[Hg] Zahra Muniz MD Work Phone: [facility] 03-18-2024 14:05-0400 Systolic blood pressure 122 mm[Hg] Zahra Muniz MD Work Phone: [facility] 02-06-2024 11:32-0400 Body mass index (BMI) [Ratio] 32.48 kg/m2 Leona Enriquez APRN.PERFORMANCE TESTER Work Phone: [facility] 02-06-2024 11:32-0400 Body weight 85.82 kg Leona Enriquez APRN.PERFORMANCE TESTER Work Phone: [facility] 02-06-2024 11:32-0400 Diastolic blood pressure 70 mm[Hg] Leona Enriquez APRN.PERFORMANCE TESTER Work Phone: [facility] 02-06-2024 11:32-0400 Heart rate 122 /min Leona Enriquez APRN.PERFORMANCE TESTER Work Phone: [facility] 02-06-2024 11:32-0400 Systolic blood pressure 110 mm[Hg] Leona Enriquez APRN.PERFORMANCE TESTER Work Phone: [facility] 10-01-2023 00:39-0500 Body weight 99.79 kg [facility] 09-03-2023 10:00-0500 Body height 162.56 cm [facility] 09-03-2023 10:00-0500 Body weight 99.79 kg [facility] 08-09-2023 13:19-0500 Body weight 102.51 kg Leona Enriquez APRN.PERFORMANCE TESTER Work Phone: [facility] 08-09-2023 13:19-0500 Diastolic blood pressure 78 mm[Hg] Leona Enriquez APRN.PERFORMANCE TESTER Work Phone: [facility] 08-09-2023 13:19-0500 Systolic blood pressure 118 mm[Hg] Leona Enriquez APRN.PERFORMANCE TESTER Work Phone: [facility] 08-09-2023 11:00-0500 Body height 162.56 cm [facility] 08-09-2023 11:00-0500 Body weight 103.96 kg [facility] 07-11-2023 13:06-0400 Body height 162.6 cm Leona Enriquez APRN.PERFORMANCE TESTER Work Phone: [facility] 07-11-2023 13:06-0400 Body weight 105.69 kg Leona Enriquez APRN.PERFORMANCE TESTER Work Phone: [facility] 07-11-2023 13:06-0400 Diastolic blood pressure 84 mm[Hg] Leona Enriquez APRN.PERFORMANCE TESTER Work Phone: [facility] 07-11-2023 13:06-0400 Heart rate 96 /min Leona Enriquez APRN.PERFORMANCE TESTER Work Phone: [facility] 07-11-2023 13:06-0400 SaO2% (BldA) [Mass fraction] 97 % Leona Enriquez APRN.PERFORMANCE TESTER Work Phone: [facility] 07-11-2023 13:06-0400 Systolic blood pressure 122 mm[Hg] Leona Enriquez APRN.PERFORMANCE TESTER Work Phone: [facility] 02-01-2022 15:45-0400 Body weight 105.42 kg Araceli Medrano MD Work Phone: [facility] 02-01-2022 15:45-0400 Diastolic blood pressure 80 mm[Hg] Araceli Medrano MD Work Phone: [facility] 02-01-2022 15:45-0400 Systolic blood pressure 122 mm[Hg] Araceli Medrano MD Work Phone: [facility] 08-09-2021 22:17-0500 Body temperature 98.06 [degF] No Pcp Required [facility] Other Phone (unformatted): [phone] 08-09-2021 22:17-0500 Diastolic blood pressure 73 mm[Hg] No Pcp Required [facility] Other Phone (unformatted): [phone] 08-09-2021 22:17-0500 Heart rate 79 /min No Pcp Required [facility] Other Phone (unformatted): [id number] 08-09-2021 22:17-0500 Respiratory rate 18 /min No Pcp Required [facility] Other Phone (unformatted): [phone] 08-09-2021 22:17-0500 SaO2% (BldA) [Mass fraction] 98 % No Pcp Required [facility] Other Phone (unformatted): [phone] 08-09-2021 22:17-0500 Systolic blood pressure 137 mm[Hg] No Pcp Required [facility] Other Phone (unformatted): [phone] 08-09-2021 18:23-0500 Body height 157.4 cm No Pcp Required [facility] Other Phone (unformatted): [phone] 08-09-2021 18:23-0500 Body weight 100 kg No Pcp Required [facility] Other Phone (unformatted): [phone] Encounters Encounter Date Encounter Type Care Provider Facility Start: 05-24-2025 ambulatory No Primary Car e Physician Facility:[facility] Start: 05-22-2025 End: 05-22-2025 Patient encounter procedure Nicolette Bobo APRN.CNM Work Phone: OB/Gynecology Comment on above: 36 weeks gestation o f (HCC) (Primary Dx); Gestational hypertension without significant proteinuria in third trimester (HCC); Insulin controlled gestational diabetes mellitus (GDM) in third trimester (HCC); Maternal obesity syndrome, antepartum, third trimester (HCC); Supervision of high risk in third trimester (HCC) Start: 05-22-2025 End: 05-22-2025 ambulatory NICOLETTE BOBO Facility:[facility] Start: 05-19-2025 End: 05-19-2025 Patient encounter procedure George Vieira MD Work Phone: OB/Gynecology Comment on above: 36 weeks gestation o f (HCC) (Primary Dx); Gestational hypertension without significant proteinuria in third trimester (HCC); Supervision of high risk due to social problems, third trimester (HCC); Insulin controlled gestational diabetes mellitus (GDM) in third trimester (HCC); Maternal obesity syndrome, antepartum, third trimester (HCC) Gestational diabetes mellitus (GDM) requiring insulin (HCC) (Primary Dx); 36 weeks gestation of (HCC) Start: 05-19-2025 End: 05-19-2025 ambulatory MERRY WHITE Facility:[facility] Start: 05-15-2025 End: 05-15-2025 Patient encounter procedure Zahra Muniz MD Work Phone: OB/Gynecology Comment on above: 35 weeks gestation o f (HCC) (Primary Dx); Gestational hypertension without significant proteinuria in third trimester (HCC); Supervision of high risk due to social problems, third trimester (HCC); Insulin controlled gestational diabetes mellitus (GDM) in third trimester (HCC); Maternal obesity syndrome, antepartum, third trimester ([facility]) macrosomia dur ing in third trimester, single or unspecified fetus (HCC) (Primary Dx); Supervision of high risk in third trimester (HCC); Insulin controlled gestational diabetes mellitus (GDM) in third trimester ([facility]); Obesity affecting in third trimester, unspecified obesity type (HCC); 35 weeks gestation of (HCC) Start: 05-15-2025 End: 05-15-2025 ambulatory ZAHRA MUNIZ Facility:[facility] Start: 05-14-2025 End: 05-14-2025 Telephone encounter George Vieira MD Work Phone: OB/Gynecology Comment on above: OB Elevated BP Start: 05-14-2025 End: 05-14-2025 ambulatory No Primary Care Physician -[facility] Start: 05-14-2025 End: 05-14-[address] Araceli Medrano DO -[facility] Work Phone: Start: 05-12-2025 End: 05-12-2025 Patient encounter procedure George Vieira MD Work Phone: OB/Gynecology Comment on above: 35 weeks gestation o f ([facility]) (Primary Dx); Gestational hypertension without significant proteinuria in third trimester ([facility]); Supervision of high risk due to social problems, third trimester ([facility]); Insulin controlled gestational diabetes mellitus (GDM) in third trimester ([facility]) Start: 05-12-2025 End: 05-12-2025 ambulatory GEORGE VIEIRA Facility:[facility] Start: 05-07-2025 End: 05-07-2025 ambulatory ZAHRA MUNIZ Facility:[facility] Start: 05-06-2025 End: 05-06-2025 ambulatory No Primary Care Physician -[facility] Start: 05-06-2025 End: 05-06-2025 Patient encounter procedure Nicolette NARANJO -[facility] Work Phone: Start: 04-27-2025 End: 04-27-2025 Patient encounter procedure Zahra Muniz MD Work Phone: OB/Gynecology Comment on above: Supervision of high risk in third trimester (HCC) (Primary Dx); Insulin controlled gestational diabetes mellitus (GDM) in third trimester (HCC); 33 weeks gestation of (HCC); History of smoking; Obesity affecting in third trimester, unspecified obesity type (HCC); Cramping affecting , antepartum (HCC) Start: 04-27-2025 End: 04-27-2025 ambulatory ZAHRA MUNIZ Facility:[facility] Start: 04-22-2025 End: 04-23-2025 ambulatory Zahra Muniz MD Work Phone: OB/Gynecology Comment on above: Need needles for ins ulin Start: 04-21-2025 End: 04-21-2025 Telephone encounter Zahra Muniz MD Work Phone: OB/Gynecology Start: 04-21-2025 End: 04-21-2025 Patient encounter procedure Zahra Muniz MD Work Phone: OB/Gynecology Comment on above: Supervision of high risk in third trimester (HCC) (Primary Dx); 32 weeks gestation of (HCC); Diet controlled gestational diabetes mellitus (GDM) in third trimester (HCC); Obesity affecting in second trimester, unspecified obesity type (HCC); History of smoking; Rubella non-immune status, antepartum (HCC); Marginal insertion of umbilical cord affecting management of mother (HCC); Gestational diabetes mellitus (GDM) requiring insulin (HCC) Start: 04-21-2025 End: 04-28-2025 ambulatory Merry White MD Work Phone: OB/Gynecology Comment on above: Fmla and short term disability paperwork Start: 04-16-2025 End: 04-17-2025 ambulatory Zahra Muniz MD Work Phone: OB/Gynecology Comment on above: 04/07/25 - 04/14/25 blo od sugar readings Start: 04-10-2025 End: 04-10-2025 Telephone encounter Irene Mc APRN.CNM Work Phone: OB/Gynecology Comment on above: 24 hour Urine Start: 04-07-2025 End: 04-07-2025 Patient encounter procedure [employer] 2 [employer] [facility] Comment on above: Encounter for ultras ound to check growth (HCC) (Primary Dx); GDM, class A1 (HCC); 30 weeks gestation of (HCC) Supervision of high risk in second trimester (HCC) (Primary Dx); 30 weeks gestation of (HCC); Diet controlled gestational diabetes mellitus (GDM) in third trimester (HCC); Obesity affecting in second trimester, unspecified obesity type (HCC); History of smoking; Rubella non-immune status, antepartum (HCC); Marginal insertion of umbilical cord affecting management of mother (HCC); Need for vaccination Start: 04-07-2025 End: 04-07-2025 ambulatory [facility] Facility:[facility] Start: 03-31-2025 End: 03-31-2025 E-mail encounter from caregiver Lidia Pritchett RN Work Phone: [facility] Start: 03-31-2025 End: 03-31-2025 Nutrition therapy Lidia Pritchett RN Work Phone: [facility] Comment on above: nutrition visit sche duled for April 06 Start: 03-31-2025 End: 04-01-[address] Damien Khan RD Work Phone: [facility] [place] Comment on above: Patient Update Start: 03-31-2025 End: 03-31-2025 Nursing evaluation of patient and report Lidia Pritchett RN Work Phone: [facility] Comment on above: Diet controlled gest ational diabetes mellitus (GDM) in third trimester (HCC) Start: 03-31-2025 End: 03-31-2025 ambulatory Lidia Pritchett RN Work Phone: [facility]abetic [facility] Comment on above: link for book and co ntact information Start: 03-27-2025 End: 03-27-2025 Telephone encounter Nicolette Bobo APRN.CNM Work Phone: OB/Gynecology Comment on above: Gestational Diabetes (/) Start: 03-27-2025 End: 03-27-2025 ambulatory NICOLETTE BOBO Facility:[facility] Start: 03-26-2025 End: 03-26-2025 Follow-up encounter Marlene Jimenez APRN.PERFORMANCE TESTER Work Phone: OB/Gynecology Comment on above: Results Start: 03-25-2025 End: 03-25-2025 ambulatory MARLENE JIMENEZ Facility:[facility] Start: 03-25-2025 End: 03-25-2025 Patient encounter procedure Merry White MD Work Phone: OB/Gynecology Comment on above: 28 weeks gestation o f (HCC) (Primary Dx); Obesity affecting in second trimester, unspecified obesity type (HCC); Need for vaccination; Supervision of other high risk pregnancies, third trimester (HCC); Marginal insertion of umbilical cord affecting management of mother in third trimester (HCC) Start: 03-18-2025 End: 03-18-2025 Patient encounter procedure Irene Mc APRN.CNM Work Phone: OB/Gynecology Comment on above: Supervision of high risk in second trimester (HCC) (Primary Dx); 27 weeks gestation of (HCC); Obesity affecting in second trimester, unspecified obesity type (HCC); Dizziness; Marginal insertion of umbilical cord affecting management of mother (HCC); Rubella non-immune status, antepartum (HCC) Start: 03-18-2025 End: 03-18-2025 ambulatory Merry White MD Work Phone: OB/Gynecology Comment on above: Still not feeling we ll Start: 03-18-2025 End: 03-18-2025 Telephone encounter Irene Mc APRN.CNM Work Phone: OB/Gynecology Comment on above: Question (OB Questio n) Start: 03-16-2025 End: 03-17-2025 ambulatory Marlene Jimenez APRN.PERFORMANCE TESTER Work Phone: OB/Gynecology Comment on above: Randomly dizzy Start: 02-25-2025 End: 02-25-2025 Patient encounter procedure Marlene Jimenez APRN.PERFORMANCE TESTER Work Phone: OB/Gynecology Comment on above: Supervision of high risk in second trimester (HCC) (Primary Dx); 24 weeks gestation of (HCC); Screening for diabetes mellitus; Obesity affecting in second trimester, unspecified obesity type (HCC); Marginal insertion of umbilical cord affecting management of mother (HCC); Excessive weight gain in , second trimester (HCC) Start: 02-25-2025 End: 02-25-2025 ambulatory Marlene Jimenez APRN.CNP Work Phone: OB/Gynecology Comment on above: Question about gluco se test Start: 01-28-2025 End: 01-28-2025 Patient encounter procedure Marlene Jimenez APRN.PERFORMANCE TESTER Work Phone: OB/Gynecology Comment on above: Supervision of high risk in second trimester (HCC) (Primary Dx); 20 weeks gestation of (HCC); Obesity affecting in second trimester, unspecified obesity type (HCC); Rubella non-immune status, antepartum (HCC); Marginal insertion of umbilical cord affecting management of mother (HCC) Encounter for anatomic survey (HCC) (Primary Dx); 20 weeks gestation of (HCC); Obesity affecting in second trimester, unspecified obesity type (HCC) Start: 01-28-2025 End: 03-05-2025 ambulatory Marlene Jimenez APRN.PERFORMANCE TESTER Work Phone: OB/Gynecology Comment on above: Ultrasound result qu estion Start: 01-21-2025 End: 03-05-2025 ambulatory Marlene Jimenez APRN.PERFORMANCE TESTER Work Phone: OB/Gynecology Comment on above: Need release form fo r dentist Start: 12-31-2024 End: 12-31-2024 ambulatory MERRY WHITE Facility:[facility] Start: 12-31-2024 End: 12-31-2024 Patient encounter procedure Merry White MD Work Phone: OB/Gynecology Comment on above: 16 weeks gestation o f (HCC) (Primary Dx); Supervision of high risk in second trimester (HCC) Start: 12-10-2024 End: 12-10-2024 ambulatory Marlene Jimenez APRN.PERFORMANCE TESTER Work Phone: OB/Gynecology Start: 12-10-2024 End: 12-10-2024 Patient encounter procedure Marlene Jimenez APRN.CNP Work Phone: OB/Gynecology Comment on above: 01/03 appointment Start: 12-03-2024 End: 12-03-2024 ambulatory MERRY WHITE Facility:[facility] Start: 12-03-2024 End: 12-03-2024 Patient encounter procedure Whi Tech 1 Councilperson [facility] Maternal Medicine Comment on above: Encounter for antena june screening for malformation using ultrasound (Primary Dx); 12 weeks gestation of Encounter for superv ision of high risk in first trimester, antepartum (Primary Dx); 12 weeks gestation of ; Heartburn during in first trimester Start: 11-28-2024 End: 11-28-2024 ambulatory Laquita Chinchilla [facility] Work Phone: Genetic Healthcare Comment on above: Family history of bi rth defect (Primary Dx); Encounter of female for testing for genetic disease carrier status for procreative management Start: 11-28-2024 End: 11-28-2024 Telemedicine consultation with patient Laquita Chinchilla [facility] Work Phone: Genetic Healthcare Start: 11-24-2024 End: 11-24-2024 Telephone encounter Laquita Chinchilla [facility] Work Phone: Genetic Healthcare Comment on above: Appointment (Records ) Start: 11-21-2024 End: 01-21-2025 Follow-up encounter Marlene Jimenez APRN.CNP Work Phone: OB/Gynecology Start: 11-20-2024 End: 01-20-2025 Follow-up encounter Marlene Jimenez APRN.CNP Work Phone: OB/Gynecology Start: 11-17-2024 End: 11-17-2024 ambulatory MARLENE JIMENEZ Facility:[facility] Start: 11-03-2024 End: 11-03-2024 ambulatory Marlene Jimenez APRN.CNP Work Phone: OB/Gynecology Comment on above: Genetic blood test Start: 10-31-2024 End: 10-31-2024 ambulatory MARLENE JIMENEZ Facility:[facility] Start: 10-31-2024 End: 10-31-2024 Patient encounter procedure Marlene Jimenez APRN.PERFORMANCE TESTER Work Phone: OB/Gynecology Comment on above: Encounter for superv ision of high risk in first trimester, antepartum (Primary Dx); 7 weeks gestation of ; Screen for STD (sexually transmitted disease); Screening for cervical cancer; Obesity affecting in first trimester, unspecified obesity type; Heartburn during in first trimester; Family history of genetic disorder; History of smoking; History of ectopic Start: 10-26-2024 End: 10-28-2024 Refill Leona Enriquez APRN.PERFORMANCE TESTER Work Phone: OB/Gynecology Comment on above: Refill Request Start: 10-24-2024 End: 10-24-2024 Patient encounter procedure George Vieira MD Work Phone: OB/Gynecology Comment on above: Early stage of pregn gab (Primary Dx); Insomnia, unspecified type; related nausea, antepartum; Migraine without status migrainosus, not intractable, unspecified migraine type Start: 10-24-2024 End: 10-24-2024 ambulatory GEORGE VIEIRA Facility:[facility] Start: 10-24-2024 End: 10-24-2024 ambulatory GEORGE VIEIRA Facility:[facility] Start: 10-24-2024 End: 10-24-2024 [facility] Work Phone: OB/Gynecology Comment on above: Hx of ectopic pregna ncy Start: 10-16-2024 End: 10-16-2024 Patient encounter procedure Marlene Jimenez APRN.PERFORMANCE TESTER Work Phone: OB/Gynecology Comment on above: with uncer tain dates in first trimester (Primary Dx); History of ectopic Start: 10-16-2024 End: 10-16-2024 ambulatory MARLENE JIMENEZ Facility:[facility] Start: 10-15-2024 End: 10-15-2024 ambulatory George Vieira MD Work Phone: OB/Gynecology Comment on above: Experiencing light s potting Start: 2024 End: 2024 ambulatory GEORGE VIEIRA Facility:[facility] Start: 10-03-2024 End: 10-03-2024 ambulatory GEORGE VIEIRA Facility:[facility] Start: 10-02-2024 End: 10-07-2024 Telephone encounter Zahra Floyd RN Obstetrics/Gynecolog y Comment on above: 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 Products 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 - O ther (Initial OB RN CC pool/) Start: 09-18-2024 End: 09-18-2024 ambulatory MARLENE JIMENEZ Facility:[facility] Start: 09-18-2024 End: 09-18-2024 Nursing evaluation of patient and report Nurse Scrubber System Attendant [facility] Work Phone: OB/Gynecology Comment on above: PCOS (polycystic ova lobito syndrome); Elevated LDL cholesterol level; Class 2 obesity with body mass index (BMI) of 39.0 to 39.9 in adult, unspecified obesity type, unspecified whether serious comorbidity present Start: 06-19-2024 End: 06-19-2024 ambulatory LEONA ENRIQUEZ Facility:[facility] Start: 06-19-2024 End: 06-19-2024 Patient encounter procedure Leona Enriquez APRN.PERFORMANCE TESTER Work Phone: OB/Gynecology Comment on above: PCOS (polycystic ova lobito syndrome) (Primary Dx); Elevated LDL cholesterol level; Ocular migraine; Class 2 obesity with body mass index (BMI) of 39.0 to 39.9 in adult, unspecified obesity type, unspecified whether serious comorbidity present Start: 05-13-2024 Get Medical Advice Leona osullivna APRN.PERFORMANCE TESTER Work Phone: OB/Gynecology Comment on above: Phentermine refill Start: 04-02-2024 End: 04-02-2024 ambulatory Treatment Rm 6 Rafa [facility] Work Phone: Hematology/Oncology Comment on above: Ectopic wi th intrauterine , unspecified location (Primary Dx) Start: 04-02-2024 End: 04-02-2024 Office outpatient visit 15 minutes Zahra Muniz MD Work Phone: OB/Gynecology Comment on above: Ectopic wi thout intrauterine , unspecified location (Primary Dx) Start: 04-01-2024 End: 04-01-2024 Patient encounter procedure George Vieira MD Work Phone: OB/Gynecology Comment on above: Ectopic , u nspecified location, unspecified whether intrauterine present (Primary Dx) Start: 03-31-2024 Telephone encounter Vicky Shabazz MD Work Phone: OB/Gynecology Comment on above: ED Follow-up (Missed AB) Start: 03-28-2024 End: 03-31-2024 ambulatory ALEXA Avalos [facility] Start: 03-28-2024 End: 03-28-2024 Emergency department patient visit [facility] Work Phone: Comment on above: Acute cystitis with hematuria (Primary Dx); Vaginal bleeding in ([facility]) Start: 03-28-2024 End: 03-28-2024 Subsequent hospital visit by physician Luis Yeagerv1 [facility] Comment on above: Arrived Start: 03-18-2024 End: 03-18-2024 Office outpatient visit 15 minutes Zahra Muniz MD Work Phone: OB/Gynecology Comment on above: Missed menses (Prima ry Dx); Encounter for BCP ( control pills) initial prescription; Threatened Start: 03-15-2024 ambulatory Araceli Roque Work Phone: OB/Gynecology Comment on above: smoke jumper supervisor doctor advis ed to reach out Start: 03-07-2024 Refill Leona BARBOZA RN.PERFORMANCE TESTER Work Phone: OB/Gynecology Comment on above: Refill Request Metformin Start: 02-06-2024 End: 02-06-2024 Office outpatient visit 25 minutes Leona Enriquez APRN.PERFORMANCE TESTER Work Phone: OB/Gynecology Comment on above: PCOS (polycystic ova lobito syndrome) (Primary Dx); Elevated LDL cholesterol level; Ocular migraine; Class 2 obesity with body mass index (BMI) of 39.0 to 39.9 in adult, unspecified obesity type, unspecified whether serious comorbidity present Start: 12-10-2023 ambulatory Leona BARBOZA RN.PERFORMANCE TESTER Work Phone: OB/Gynecology Comment on above: Metformin Start: 11-28-2023 Refill Leona BARBOZA RN.[facility] Work Phone: OB/Gynecology Comment on above: Refill Request Start: 11-08-2023 End: 11-29-2023 [facility] Work Phone: Start: 11-08-2023 End: 11-29-2023 [facility] Start: 09-03-2023 End: 09-30-2023 [facility] Start: 08-09-2023 End: 08-09-2023 Patient encounter procedure Leona Enriquez APRN.PERFORMANCE TESTER Work Phone: OB/Gynecology Comment on above: PCOS (polycystic ova lobito syndrome) (Primary Dx); Elevated LDL cholesterol level; Class 2 obesity with body mass index (BMI) of 39.0 to 39.9 in adult, unspecified obesity type, unspecified whether serious comorbidity present Start: 08-09-2023 End: 08-30-2023 [facility] Work Phone: Start: 08-09-2023 End: 08-30-2023 [facility] Start: 07-16-2023 ambulatory Leona BARBOZA RN.[facility] Work Phone: OB/Gynecology Comment on above: Thank you Start: 07-11-2023 End: 07-11-2023 Patient encounter procedure Leona Enriquez APRN.PERFORMANCE TESTER Work Phone: OB/Gynecology Comment on above: PCOS (polycystic ova lobito syndrome) (Primary Dx); Elevated LDL cholesterol level; Malaise and fatigue; History of non anemic vitamin B12 deficiency; Screening for diabetes mellitus; Encounter for vitamin deficiency screening; Screening for deficiency anemia; Class 2 obesity with body mass index (BMI) of 39.0 to 39.9 in adult, unspecified obesity type, unspecified whether serious comorbidity present Start: 06-05-2023 ambulatory Araceli Roque Work Phone: OB/Gynecology Comment on above: Weight loss Start: 03-02-2022 End: 03-02-2022 ambulatory Araceli Medrano MD Work Phone: OB/Gynecology Comment on above: Class 3 severe obesi ty with body mass index (BMI) of 40.0 to 44.9 in adult, unspecified obesity type, unspecified whether serious comorbidity present (HCC) (Primary Dx); Desire for ; PCOS (polycystic ovarian syndrome) Start: 03-02-2022 End: 03-02-2022 Telemedicine consultation with patient Araceli Medrano MD Work Phone: [facility] Start: 02-14-2022 ambulatory Araceli Roque Work Phone: [facility] Start: 02-14-2022 Manual pelvic examination Araceli Medrano MD Work Phone: OB/Gynecology Comment on above: Question regarding P ELVIC US WHI Start: 02-13-2022 End: 02-13-2022 ambulatory Araceli Medrano MD Work Phone: OB/Gynecology Comment on above: DUB Start: 02-13-2022 End: 02-13-2022 Patient encounter procedure Araceli Medrano MD [facility] Start: 02-01-2022 End: 02-01-2022 Patient encounter procedure Araceli Medrano MD Work Phone: OB/Gynecology Comment on above: DUB (dysfunctional u terine bleeding) (Primary Dx); Irregular periods; Class 3 severe obesity with body mass index (BMI) of 40.0 to 44.9 in adult, unspecified obesity type, unspecified whether serious comorbidity present (HCC); Female infertility Start: 08-15-2021 Chart Update No PCP None [address] Work Phone: Start: 08-09-2021 End: 08-09-2021 Emergency department patient visit [id number] Other Phone (unformatted): [phone] Procedures Date Procedure Procedure Detail Performing Clinician Start: 05-22-2025 Urnls dip stick/tabl et rgnt non-auto w/o micrscp Nicolette Bobo CUT OFF SAWYER.CNM Work Phone: Start: 05-19-2025 Urnls dip stick/tabl et rgnt non-auto w/o micrscp George Vieira MD Work Phone: Start: 05-19-2025 Us preg uterus after 1st trimest 10/01 gestation Merry White MD Work Phone: Start: 05-15-2025 Urnls dip stick/tabl et rgnt non-auto w/o micrscp Zahra Muniz MD Work Phone: Start: 05-15-2025 Us preg uterus after 1st trimest 10/01 gestation Merry White MD Work Phone: Start: 05-14-2025 Estimated creatinine clearance No Primary Care Physician Start: 05-12-2025 Urnls dip stick/tabl et rgnt non-auto w/o micrscp George Vieira MD Work Phone: Start: 05-06-2025 Estimated creatinine clearance No Primary Care Physician Start: 04-27-2025 Urnls dip stick/tabl et rgnt auto w/o microscopy Zahra Muniz MD Work Phone: Start: 04-21-2025 Urnls dip stick/tabl et rgnt non-auto w/o micrscp Zahra Muniz MD Work Phone: Start: 04-07-2025 Us preg uterus after 1st trimest 10/01 gestation Nicolette Jagjitayesha CUT OFF SAWYER.CNM Work Phone: Start: 01-28-2025 Us preg uterus after 1st trimest 10/01 gestation Marlene Jimenez CUT OFF SAWYER.PERFORMANCE TESTER Work Phone: Start: 12-03-2024 Us preg uterus after 1st trimest 10/01 gestation Marlene Jimenez CUT OFF SAWYER.PERFORMANCE TESTER Work Phone: Start: 11-17-2024 Antibody screen MARLENE OVIEDO Comment on above: Order Comment: Speci men Type: BLOOD SPECIMEN Ordering Facility: [facility] Address: [address] [place] [address] Performed By: #### 1 [id number] #### [facility] CLIA [id number] [address] [place] [address] [place] [address] [place] Start: 10-31-2024 Adult depression screening assessment Laquita Chinchilla [facility] Work Phone: Start: 10-24-2024 Us preg uterus after 1st trimest 10/01 gestation George Vieira MD Work Phone: Start: 10-16-2024 Us uterus limited fetuses Marlene Jimenez CUT OFF SAWYER.PERFORMANCE TESTER Work Phone: Start: 03-28-2024 Us uterus 1 4 wk transabdl 10/01 gestat Alexa Duvall CUT OFF SAWYER-PERFORMANCE TESTER Work Phone: Start: 03-28-2024 Urinalysis complete W Reflex Culture panel - Urine Alexa Duvall CUT OFF SAWYER-PERFORMANCE TESTER Work Phone: Start: 03-28-2024 Urnls dip stick/tabl et reagent auto microscopy Alexa Duvall CUT OFF SAWYER-PERFORMANCE TESTER Work Phone: Start: 03-28-2024 Blood typing serolog ic rh (d) Alexa Duvall CUT OFF SAWYER-PERFORMANCE TESTER Work Phone: Start: 03-28-2024 Comprehensive metabo lic panel Alexa Duvall CUT OFF SAWYER-PERFORMANCE TESTER Work Phone: Start: 03-28-2024 Ecg routine ecg w/le ast 12 lds trcg only w/o i&r Alexa Duvall CUT OFF SAWYER-PERFORMANCE TESTER Work Phone: H/O: section Previous c esarean delivery affecting No Primary Care Physician H/O: section Previous c esarean delivery affecting Nicolette Bobo CNM Plan of Treatment Date Care Activity Detail Author Start: 2070 RSV Vaccine (1 - 1-dose 75+ series) RSV Vaccine (1 - 1-dose 75+ series) [facility] Start: 2045 Zoster Vaccines (1 of 2) Zoster Vaccines (1 of 2) [facility] Start: 04-07-2035 Urine microalbumin profile DTaP,Tdap,Td Vaccine (8 - Td or Tdap) [facility] Start: 10-31-2027 Screening for malignant neoplasm of cervix Cervical Cancer Screening [facility] Start: 10-31-2025 Anxiety Screening Anxiety Screening [facility] Start: 10-31-2025 Depression Screening Depression Screening [facility] Start: 10-31-2025 Screening for malignant neoplasm of cervix Cervical Cancer Screening [facility] Start: 06-12-2025 End: 06-12-2025 Patient encounter procedure OB/Gynecology Comment on above: NST NST/OB Start: 06-09-2025 End: 06-09-2025 Patient encounter procedure OB/Gynecology Comment on above: NST NST/OB Start: 06-05-2025 End: 06-05-2025 Patient encounter procedure OB/Gynecology Comment on above: NST/OB Start: 06-03-2025 End: 06-03-2025 Patient encounter procedure 06/03/2025 9:20 AM EDT Office Visit OB/Gynecology [address] [place], [place] [id number] Vicky Rodgers MD [address] [place] [address] POst 1 week OB/Gynecology Comment on above: POst 1 week Start: 06-02-2025 End: 06-02-2025 Patient encounter procedure OB/Gynecology Comment on above: NST NST/OB Start: 06-01-2025 Influenza vaccination [facility] Start: 05-29-2025 End: 05-29-2025 Patient encounter procedure OB/Gynecology Comment on above: NST NST/OB Start: 05-26-2025 End: 05-26-2025 Patient encounter procedure OB/Gynecology Comment on above: NST NST/OB Start: 05-22-2025 End: 05-22-2025 Patient encounter procedure OB/Gynecology Comment on above: NST NST/OB Start: 05-19-2025 End: 05-19-2025 Patient encounter procedure Maternal Medicine Comment on above: 36wk Growth Growth/OB Start: 05-15-2025 End: 05-15-2025 Patient encounter procedure Maternal Medicine Comment on above: Growth Growth/OB per RR Start: 05-14-2025 Patient discharge [facility] Start: 05-13-2025 End: 05-13-2025 Patient encounter procedure OB/Gynecology Comment on above: OB NST Start: 05-07-2025 End: 05-07-2025 Patient encounter procedure OB/Gynecology Comment on above: NST NST/OB Start: 05-06-2025 End: 05-06-2025 Patient encounter procedure 05/06/2025 8:30 AM EDT Routine Office Visit OB/Gynecology [address] [place] [phone] Merry White MD [address] [place] [id number] OB OB/Gynecology Comment on above: OB Start: 05-06-2025 Patient discharge [facility] Start: 04-28-2025 End: 04-28-2025 Patient encounter procedure OB/Gynecology Comment on above: NST NST/OB- FMLA & Short term disability paperwork completed, patient copies have been placed in chart prep binder NST @ 9:30/OB- FMLA & Short term disability paperwork completed, patient copies have been placed in chart prep binder - moved from J Start: 04-22-2025 End: 04-22-2025 Patient encounter procedure OB/Gynecology Comment on above: OB Growth Start: 04-21-2025 End: 04-21-2025 Patient encounter procedure 04/21/2025 9:50 AM EDT Routine Office Visit OB/Gynecology [address] [place] [address] Zahra Muniz MD [address] [place] [id number] OB OB/Gynecology Comment on above: OB Start: 04-21-2025 End: 04-21-2025 Patient encounter procedure 04/21/2025 8:30 AM EDT Routine Office Visit Maternal Medicine [address] [place] [address] Growth Maternal Medicine Comment on above: Growth Start: 04-08-2025 End: 04-08-2025 Patient encounter procedure 04/08/2025 8:45 AM EDT Routine Office Visit OB/Gynecology [address] [place] [address] Marlene Jmienez APRN.PERFORMANCE TESTER [address] [place] [address] OB OB/Gynecology Comment on above: OB Start: 04-07-2025 End: 04-07-2025 Patient encounter procedure Maternal Medicine Comment on above: Growth OB-growth U/S at 3 OB-growth U/S at 3, Pt needs to schedule nutrition appointment Start: 04-06-2025 End: 04-06-2025 Nutrition therapy 04/06/2025 3:00 PM EDT [facility] NUTRITION [address] [place] [address] Diet controlled gestational diabetes mellitus (GDM) in third trimester (HCC) [O2. [facility] NUTRITION Comment on above: Diet controlled gestational diabetes terri litus (GDM) in third trimester (HCC) [O2. Start: 03-31-2025 End: 03-31-2025 Nursing evaluation of patient and report 03/31/2025 9:00 AM EDT Nurse Visit Diabetic Education [facility] [address] [place] [phone] Lidia Pritchett, [place] [address] [address] [place] [id number] How to control gestational diabetes Diabetic Education [facility] Comment on above: How to control gestational diabetes Start: 03-28-2025 End: 06-27-2025 ANEMIA REFLEX PANEL ANEMIA REFLEX PANEL Lab Routine Supervision of high risk in second trimester (HCC) 24 weeks gestation of (HCC) Obesity affecting in second trimester, unspecified obesity type (HCC) Expected: 03/28/2025 (Approximate), Expires: 06/27/2025 [facility] Comment on above: Expected: 03/28/2025 (Approximate), Expi res: 06/27/2025 Start: 03-28-2025 End: 02-25-2026 GESTATIONAL GLUCOSE SCREEN, 1-HOUR, 50 GRAM, NON-FASTING GESTATIONAL GLUCOSE SCREEN, 1-HOUR, 50 GRAM, NON-FASTING Lab Routine Supervision of high risk in second trimester (HCC) 24 weeks gestation of (HCC) Screening for diabetes mellitus Obesity affecting in second trimester, unspecified obesity type (HCC) Expected: 03/28/2025 (Approximate), Expires: 02/25/2026 [facility] Work Phone: Comment on above: Expected: 03/28/2025 (Approximate), Expi res: 02/25/2026 Start: 03-28-2025 End: 02-25-2026 SYPHILIS TREPONEMAL W/REFLEX SYPHILIS TREPONEMAL W/REFLEX Lab Routine Supervision of high risk in second trimester (HCC) 24 weeks gestation of (HCC) Obesity affecting in second trimester, unspecified obesity type (HCC) Expected: 03/28/2025 (Approximate), Expires: 02/25/2026 [facility] Comment on above: Expected: 03/28/2025 (Approximate), Expi res: 02/25/2026 Start: 03-27-2025 End: 03-27-2025 ambulatory 03/27/2025 10:45 AM EDT Results Only [facility] [address] [place] [address] Dx: Elevated glucose [R73.09] [facility] Comment on above: Dx: Elevated glucose [R73.09] Start: 03-26-2025 End: 06-25-2025 GEST GLUC BLANK, 3-HR, 100 GM, FASTING GEST GLUC BLANK, 3-HR, 100 GM, FASTING Lab Routine Elevated glucose Expected: 03/26/2025, Expires: 06/25/2025 [facility] Work Phone: Comment on above: Expected: 03/26/2025, Expires: Start: 03-25-2025 End: 03-25-2025 Patient encounter procedure 03/25/2025 8:30 AM EDT Routine Office Visit OB/Gynecology [address] [place] [address] Merry White MD [address] [place] [address] OB OB/Gynecology Comment on above: OB Start: 03-18-2025 End: 06-17-2025 CBC W Auto Differential panel - Blood COMPLETE BLOOD COUNT AND DIFFERENTIAL Lab Routine 27 weeks gestation of (HCC) Dizziness Expected: 03/18/2025, Expires: 06/17/2025 [facility] Comment on above: Expected: 03/18/2025, Expires: Start: 03-18-2025 End: 06-17-2025 Comprehensive metabolic 2000 panel - Serum or Plasma COMPREHENSIVE METABOLIC PANEL Lab Routine 27 weeks gestation of (HCC) Dizziness Expected: 03/18/2025, Expires: 06/17/2025 [facility] Work Phone: Comment on above: Expected: 03/18/2025, Expires: Start: 03-18-2025 End: 06-17-2025 Protein/Creatinine [Mass Ratio] in Urine PROTEIN / CREATININE RATIO Lab Routine 27 weeks gestation of (HCC) Dizziness Expected: 03/18/2025, Expires: 06/17/2025 [facility] Comment on above: Expected: 03/18/2025, Expires: Start: 03-18-2025 End: 06-17-2025 Urate [Mass/volume] in Serum or Plasma URIC ACID Lab Routine 27 weeks gestation of (HCC) Dizziness Expected: 03/18/2025, Expires: 06/17/2025 [facility] Comment on above: Expected: 03/18/2025, Expires: Start: 02-25-2025 End: 02-25-2026 OBSTETRIC ULTRASOUND WHI OBSTETRIC ULTRASOUND WHI Anc Imaging Routine Supervision of high risk in second trimester (HCC) 24 weeks gestation of (HCC) Obesity affecting in second trimester, unspecified obesity type (HCC) Expected: 02/25/2025, Expires: 02/25/2026 [facility] Comment on above: Expected: 02/25/2025, Expires: Start: 02-25-2025 End: 02-25-2025 Patient encounter procedure 02/25/2025 8:45 AM EDT Routine Office Visit OB/Gynecology [address] [place] [address] Marlene Jimenez APRN.PERFORMANCE TESTER [address] [place] [address] OB OB/Gynecology Comment on above: OB Start: 01-28-2025 End: 01-28-2025 Patient encounter procedure Maternal Medicine Comment on above: Anatomy Scan OB Routine Start: 12-31-2024 End: 12-31-2024 Patient encounter procedure 12/31/2024 8:30 AM EDT Routine Office Visit OB/Gynecology [address] [place] [address] Merry White MD [address] [place] [address] OB Routine OB/Gynecology Comment on above: OB Routine Start: 12-11-2024 End: 12-11-2024 Patient encounter procedure 12/11/2024 11:00 AM EDT Office Visit OB/Gynecology [address] [place] [place] [address] Leona Enriquez APRN.PERFORMANCE TESTER [address] [place] [address] WT MGMT F/up OB/Gynecology Comment on above: WT MGMT F/up Start: 12-03-2024 End: 12-03-2024 Patient encounter procedure Maternal Medicine Comment on above: Nuchal OB Routine Start: 11-28-2024 End: 11-28-2024 Patient encounter procedure 11/28/2024 9:30 AM [place] [address] [address] Laquita Chinchilla, [facility] [address] [place] [phone] virtual consult [facility] Comment on above: virtual consult Start: 11-03-2024 End: 02-02-2025 Chromosome 21 trisomy [Presence] in Blood or Tissue by Cytogenetics [id number] PLUS Lab Routine Encounter for supervision of high risk in first trimester, antepartum Expected: 11/03/2024, Expires: 02/02/2025 [facility] Work Phone: Comment on above: Expected: 11/03/2024, Expires: Start: 10-31-2024 End: 01-30-2025 ANEMIA REFLEX PANEL ANEMIA REFLEX PANEL Lab Routine Encounter for supervision of high risk in first trimester, antepartum Expected: 10/31/2024, Expires: 01/30/2025 [facility] Comment on above: Expected: 10/31/2024, Expires: Start: 10-31-2024 End: 01-30-2025 CARRIER SCREEN, STANDARD CARRIER SCREEN, STANDARD Lab Routine Encounter for supervision of high risk in first trimester, antepartum 7 weeks gestation of Expected: 10/31/2024, Expires: 01/30/2025 [facility] Comment on above: Expected: 10/31/2024, Expires: Start: 10-31-2024 End: 01-30-2025 Hemoglobin A1c in Blood HEMOGLOBIN A1C Lab Routine Encounter for supervision of high risk in first trimester, antepartum Expected: 10/31/2024, Expires: 01/30/2025 [facility] Comment on above: Expected: 10/31/2024, Expires: Start: 10-31-2024 End: 01-30-2025 Hepatitis B virus surface Ag [Presence] in Serum HEPATITIS B SURFACE ANTIGEN Lab Routine Encounter for supervision of high risk in first trimester, antepartum Expected: 10/31/2024, Expires: 01/30/2025 [facility] Comment on above: Expected: 10/31/2024, Expires: Start: 10-31-2024 End: 01-30-2025 Hepatitis C virus Ab [Presence] in Serum HEPATITIS C ANTIBODY IA WITH CONFIRMATION Lab Routine Encounter for supervision of high risk in first trimester, antepartum Expected: 10/31/2024, Expires: 01/30/2025 [facility] Comment on above: Expected: 10/31/2024, Expires: Start: 10-31-2024 End: 01-30-2025 HIV 1+2 Ab [Presence] in Serum or Plasma by Immunoassay HIV 1/2 COMBO WITH REFLEX TO DIFFERENTIATION Lab Routine Encounter for supervision of high risk in first trimester, antepartum Expected: 10/31/2024, Expires: 01/30/2025 [facility] Comment on above: Expected: 10/31/2024, Expires: Start: 10-31-2024 End: 10-31-2025 OBSTETRIC ULTRASOUND WHI OBSTETRIC ULTRASOUND WHI Anc Imaging Routine Encounter for supervision of high risk in first trimester, antepartum Expected: 10/31/2024, Expires: 10/31/2025 [facility] Comment on above: Expected: 10/31/2024, Expires: Start: 10-31-2024 End: 01-30-2025 RUBELLA IGG ANTIBODY RUBELLA IGG ANTIBODY Lab Routine Encounter for supervision of high risk in first trimester, antepartum Expected: 10/31/2024, Expires: 01/30/2025 [facility] Comment on above: Expected: 10/31/2024, Expires: Start: 10-31-2024 End: 01-30-2025 SYPHILIS TREPONEMAL W/REFLEX SYPHILIS TREPONEMAL W/REFLEX Lab Routine Encounter for supervision of high risk in first trimester, antepartum Expected: 10/31/2024, Expires: 01/30/2025 [facility] Comment on above: Expected: 10/31/2024, Expires: Start: 10-31-2024 End: 01-30-2025 TYPE + SCREEN TYPE + SCREEN Blood Bank Routine Encounter for supervision of high risk in first trimester, antepartum Expected: 10/31/2024, Expires: 01/30/2025 [facility] Comment on above: Expected: 10/31/2024, Expires: Start: 10-31-2024 End: 10-31-2024 Patient encounter procedure 10/31/2024 11:00 AM EST Initial Office Visit OB/Gynecology [address] [address] Marlene Jimenez APRN.PERFORMANCE TESTER [address] [place] [address] New OB LMP 09/07 OB/Gynecology Comment on above: New OB LMP 09/07 Start: 10-24-2024 End: 10-24-2024 Patient encounter procedure OB/Gynecology Comment on above: Dating New OB LMP 09/07 Start: 10-16-2024 End: 10-16-2024 Patient encounter procedure 10/16/2024 11:45 AM EST Office Visit OB/Gynecology [address] [place] [address] Marlene Jimenez APRN.PERFORMANCE TESTER [address] [place] [address] early OB u/s OB/Gynecology Comment on above: early OB u/s Start: 10-13-2024 End: 10-13-2024 Patient encounter procedure 10/13/2024 9:20 AM EST Office Visit OB/Gynecology [address] [place] [address] Araceli Medrano MD [address] [place] [address] Fertility OB/Gynecology Comment on above: Fertility Start: 10-07-2024 End: 10-07-2025 OBSTETRIC ULTRASOUND WHI OBSTETRIC ULTRASOUND WHI Anc Imaging Routine Hx of ectopic Expected: 10/07/2024, Expires: 10/07/2025 [facility] Work Phone: Comment on above: Expected: 10/07/2024, Expires: Start: 09-18-2024 End: 09-18-2024 Nursing evaluation of patient and report 09/18/2024 10:00 AM EST Nurse Visit OB/Gynecology [address] [place] [address] [facility], Nurse Scrubber System Attendant [facility] [address] [place] [address] Phentermine f/up OB/Gynecology Comment on above: Phentermine f/up Start: 06-19-2024 End: 06-19-2024 Patient encounter procedure 06/19/2024 9:30 AM EDT Office Visit OB/Gynecology [address] [place] [address] Leona Enriquez, CUT OFF SAWYER.PERFORMANCE TESTER [address] [place] [address] wt mgmt f/u OB/Gynecology Comment on above: wt mgmt f/u Start: 06-01-2024 Covid-19 Vaccine () Covid-19 Vaccine () [facility] Start: 06-01-2024 Influenza vaccination [facility] Start: 05-07-2024 End: 05-07-2024 Patient encounter procedure 05/07/2024 11:00 AM EDT Office Visit OB/Gynecology [address] [place] [address] Leona Enriquez, CUT OFF SAWYER.PERFORMANCE TESTER [address] [place] [address] wt mgmt f/u OB/Gynecology Comment on above: wt mgmt f/u Start: 04-28-2024 End: 04-28-2024 Patient encounter procedure 04/28/2024 10:20 AM EDT Routine Office Visit OB/Gynecology [address] [place] [address] Araceli Medrano MD [address] [place] [address] ob OB/Gynecology Comment on above: ob Start: 04-10-2024 End: 04-10-2024 Patient encounter procedure 04/10/2024 10:20 AM EDT Routine Office Visit OB/Gynecology [address] [place] [address] Araceli Medrano MD [address] [place] [address] ob OB/Gynecology Comment on above: ob Start: 04-02-2024 End: 04-02-2024 Patient encounter procedure 04/02/2024 10:00 AM EDT Office Visit OB/Gynecology [address] [place] [address] Zahra Muniz MD [address] [place] [address] Methotrexate OB/Gynecology Comment on above: Methotrexate Start: 04-01-2024 End: 07-01-2024 Alanine aminotransferase [Enzymatic activity/volume] in Serum or Plasma ALANINE AMINOTRANSFERASE / SGPT Lab Routine Ectopic , unspecified location, unspecified whether intrauterine present Expected: 04/01/2024, Expires: 07/01/2024 [facility] Comment on above: Expected: 04/01/2024, Expires: Start: 04-01-2024 End: 07-01-2024 Aspartate aminotransferase [Enzymatic activity/volume] in Serum or Plasma ASPARTATE AMINOTRANSFERASE/SGOT Lab Routine Ectopic , unspecified location, unspecified whether intrauterine present Expected: 04/01/2024, Expires: 07/01/2024 [facility] Comment on above: Expected: 04/01/2024, Expires: Start: 04-01-2024 End: 07-01-2024 CBC panel - Blood by Automated count COMPLETE BLOOD COUNT Lab Routine Ectopic , unspecified location, unspecified whether intrauterine present Expected: 04/01/2024, Expires: 07/01/2024 [facility] Work Phone: Comment on above: Expected: 04/01/2024, Expires: Start: 04-01-2024 End: 07-01-2024 CREATININE BLD CREATININE BLD Lab Routine Ectopic , unspecified location, unspecified whether intrauterine present Expected: 04/01/2024, Expires: 07/01/2024 [facility] Comment on above: Expected: 04/01/2024, Expires: Start: 04-01-2024 End: 04-01-2024 Patient encounter procedure 04/01/2024 10:30 AM EDT Office Visit OB/Gynecology [address] [place] [address] George Vieira MD [address] [place] [address] Discuss Plan, possible missed AB OB/Gynecology Comment on above: Discuss Plan, possible missed AB Start: 03-31-2024 End: 03-31-2024 Patient encounter procedure 03/31/2024 9:30 AM EDT Initial Office Visit OB/Gynecology [address] [place] [address] Marlene Jimenez APRN.PERFORMANCE TESTER [address] [place] [address] OB LMP 02/05/24 OB/Gynecology Comment on above: OB LMP 02/05/24 Start: 03-18-2024 End: 03-18-2024 Patient encounter procedure 03/18/2024 2:00 PM EDT Office Visit OB/Gynecology [address] [place] [address] Zahra Muniz MD [address] [place] [address] Bleeding in Early OB/Gynecology Comment on above: Bleeding in Early Start: 03-12-2024 End: 03-12-2024 Patient encounter procedure 03/12/2024 1:00 PM EDT Initial Office Visit OB/Gynecology [address] [place] [address] Nicolette Bobo APRN.CNM [address] [place] [address] OB LMP 02/05/24 OB/Gynecology Comment on above: OB LMP 02/05/24 Start: 12-15-2023 PAP TESTING PAP TESTING [facility] Start: 12-15-2023 Screening for malignant neoplasm of cervix [facility] Start: 10-01-2023 Behavioral Health Screening Behavioral Health Screening [facility] Start: 10-01-2023 Depression Assessment Depression Assessment [facility] Start: 07-11-2023 End: 09-10-2023 25-hydroxyvitamin D3 [Mass/volume] in Serum or Plasma VITAMIN D 25 HYDROXY Lab Routine Encounter for vitamin deficiency screening Malaise and fatigue Class 2 obesity with body mass index (BMI) of 39.0 to 39.9 in adult, unspecified obesity type, unspecified whether serious comorbidity present Expected: 07/11/2023, Expires: 09/10/2023 [facility] Work Phone: Comment on above: Expected: 07/11/2023, Expires: 3 Start: 07-11-2023 End: 09-10-2023 CBC panel - Blood by Automated count CBC Lab Routine Screening for deficiency anemia Class 2 obesity with body mass index (BMI) of 39.0 to 39.9 in adult, unspecified obesity type, unspecified whether serious comorbidity present Expected: 07/11/2023, Expires: 09/10/2023 [facility] Work Phone: Comment on above: Expected: 07/11/2023, Expires: 3 Start: 07-11-2023 End: 09-10-2023 Cobalamin (Vitamin B12) [Mass/volume] in Serum or Plasma VITAMIN B12 BLOOD Lab Routine History of non anemic vitamin B12 deficiency Expected: 07/11/2023, Expires: 09/10/2023 [facility] Work Phone: Comment on above: Expected: 07/11/2023, Expires: 3 Start: 07-11-2023 End: 09-10-2023 Comprehensive metabolic 2000 panel - Serum or Plasma COMP METABOLIC PANEL Lab Routine Screening for deficiency anemia Class 2 obesity with body mass index (BMI) of 39.0 to 39.9 in adult, unspecified obesity type, unspecified whether serious comorbidity present Expected: 07/11/2023, Expires: 09/10/2023 [facility] Work Phone: Comment on above: Expected: 07/11/2023, Expires: 3 Start: 07-11-2023 End: 09-10-2023 Hemoglobin A1c in Blood HGB A1C Lab Routine Screening for diabetes mellitus PCOS (polycystic ovarian syndrome) Class 2 obesity with body mass index (BMI) of 39.0 to 39.9 in adult, unspecified obesity type, unspecified whether serious comorbidity present Expected: 07/11/2023, Expires: 09/10/2023 [facility] Work Phone: Comment on above: Expected: 07/11/2023, Expires: 3 Start: 07-11-2023 End: 09-10-2023 Insulin [Units/volume] in Serum or Plasma INSULIN ASSAY BLOOD Lab Routine Screening for diabetes mellitus PCOS (polycystic ovarian syndrome) Class 2 obesity with body mass index (BMI) of 39.0 to 39.9 in adult, unspecified obesity type, unspecified whether serious comorbidity present Expected: 07/11/2023, Expires: 09/10/2023 [facility] Work Phone: Comment on above: Expected: 07/11/2023, Expires: 3 Start: 06-01-2023 Covid-19 Vaccine ( season) Covid-19 Vaccine ( season) [facility] Start: 06-01-2023 Influenza vaccination [facility] Start: 10-01-2022 DEPRESSION ASSESSMENT DEPRESSION ASSESSMENT [facility] Start: 06-01-2022 Influ[facility] Start: 02-01-2022 End: 04-03-2022 17-Hydroxyprogesterone [Mass/volume] in Serum or Plasma HYDROXYPROGESTERO-17 Lab Routine DUB (dysfunctional uterine bleeding) Irregular periods Class 3 severe obesity with body mass index (BMI) of 40.0 to 44.9 in adult, unspecified obesity type, unspecified whether serious comorbidity present (HCC) Expected: 02/01/2022, Expires: 04/03/2022 [facility] Work Phone: Comment on above: Expected: 02/01/2022, Expires: 2 Start: 02-01-2022 End: 04-03-2022 DHEA-S BLD DHEA-S BLD Lab Routine DUB (dysfunctional uterine bleeding) Irregular periods Class 3 severe obesity with body mass index (BMI) of 40.0 to 44.9 in adult, unspecified obesity type, unspecified whether serious comorbidity present (HCC) Expected: 02/01/2022, Expires: 04/03/2022 [facility] Work Phone: Comment on above: Expected: 02/01/2022, Expires: 2 Start: 02-01-2022 End: 04-03-2022 Estradiol (E2) [Mass/volume] in Serum or Plasma ESTRADIOL-17B BLD Lab Routine DUB (dysfunctional uterine bleeding) Irregular periods Class 3 severe obesity with body mass index (BMI) of 40.0 to 44.9 in adult, unspecified obesity type, unspecified whether serious comorbidity present (HCC) Expected: 02/01/2022, Expires: 04/03/2022 [facility] Work Phone: Comment on above: Expected: 02/01/2022, Expires: 2 Start: 02-01-2022 End: 04-03-2022 Fasting glucose [Mass/volume] in Serum or Plasma GLUCOSE FASTING BLD Lab Routine DUB (dysfunctional uterine bleeding) Irregular periods Class 3 severe obesity with body mass index (BMI) of 40.0 to 44.9 in adult, unspecified obesity type, unspecified whether serious comorbidity present (HCC) Expected: 02/01/2022, Expires: 04/03/2022 [facility] Work Phone: Comment on above: Expected: 02/01/2022, Expires: 2 Start: 02-01-2022 End: 04-03-2022 Follitropin [Units/volume] in Serum or Plasma FSH BLD Lab Routine DUB (dysfunctional uterine bleeding) Irregular periods Class 3 severe obesity with body mass index (BMI) of 40.0 to 44.9 in adult, unspecified obesity type, unspecified whether serious comorbidity present (HCC) Expected: 02/01/2022, Expires: 04/03/2022 [facility] Work Phone: Comment on above: Expected: 02/01/2022, Expires: 2 Start: 02-01-2022 End: 04-03-2022 Hemoglobin A1c/Hemoglobin.total in Blood HGB A1C Lab Routine DUB (dysfunctional uterine bleeding) Irregular periods Class 3 severe obesity with body mass index (BMI) of 40.0 to 44.9 in adult, unspecified obesity type, unspecified whether serious comorbidity present (HCC) Expected: 02/01/2022, Expires: 04/03/2022 [facility] Work Phone: Comment on above: Expected: 02/01/2022, Expires: 2 Start: 02-01-2022 End: 04-03-2022 LIPID PANEL BASIC LIPID PANEL BASIC Lab Routine DUB (dysfunctional uterine bleeding) Irregular periods Class 3 severe obesity with body mass index (BMI) of 40.0 to 44.9 in adult, unspecified obesity type, unspecified whether serious comorbidity present (HCC) Expected: 02/01/2022, Expires: 04/03/2022 [facility] Work Phone: Comment on above: Expected: 02/01/2022, Expires: 2 Start: 02-01-2022 End: 04-03-2022 Lutropin [Units/volume] in Serum or Plasma LUTEINIZING HORMONE Lab Routine DUB (dysfunctional uterine bleeding) Irregular periods Class 3 severe obesity with body mass index (BMI) of 40.0 to 44.9 in adult, unspecified obesity type, unspecified whether serious comorbidity present (HCC) Expected: 02/01/2022, Expires: 04/03/2022 [facility] Work Phone: Comment on above: Expected: 02/01/2022, Expires: 2 Start: 02-01-2022 End: 04-03-2022 PROGESTERONE BLD PROGESTERONE BLD Lab Routine DUB (dysfunctional uterine bleeding) Irregular periods Class 3 severe obesity with body mass index (BMI) of 40.0 to 44.9 in adult, unspecified obesity type, unspecified whether serious comorbidity present (HCC) Expected: 02/01/2022, Expires: 04/03/2022 [facility] Work Phone: Comment on above: Expected: 02/01/2022, Expires: 2 Start: 02-01-2022 End: 04-03-2022 Prolactin [Mass/volume] in Serum or Plasma PROLACTIN BLD Lab Routine DUB (dysfunctional uterine bleeding) Irregular periods Class 3 severe obesity with body mass index (BMI) of 40.0 to 44.9 in adult, unspecified obesity type, unspecified whether serious comorbidity present (HCC) Expected: 02/01/2022, Expires: 04/03/2022 [facility] Work Phone: Comment on above: Expected: 02/01/2022, Expires: 2 Start: 02-01-2022 End: 04-03-2022 Testosterone [Mass/volume] in Serum or Plasma TESTOSTERONE TOTAL Lab Routine DUB (dysfunctional uterine bleeding) Irregular periods Class 3 severe obesity with body mass index (BMI) of 40.0 to 44.9 in adult, unspecified obesity type, unspecified whether serious comorbidity present (HCC) Expected: 02/01/2022, Expires: 04/03/2022 [facility] Work Phone: Comment on above: Expected: 02/01/2022, Expires: 2 Start: 02-01-2022 End: 04-03-2022 Thyrotropin [Units/volume] in Serum or Plasma TSH BLD Lab Routine DUB (dysfunctional uterine bleeding) Irregular periods Class 3 severe obesity with body mass index (BMI) of 40.0 to 44.9 in adult, unspecified obesity type, unspecified whether serious comorbidity present (HCC) Expected: 02/01/2022, Expires: 04/03/2022 [facility] Work Phone: Comment on above: Expected: 02/01/2022, Expires: 2 Start: 12-14-2021 Screening for malignant neoplasm of cervix Cervical Cancer Screening [facility] Start: 10-13-2021 DTaP/Tdap/Td Vaccines (7 - Td or Tdap) DTaP/Tdap/Td Vaccines (7 - Td or Tdap) [facility] Start: 10-13-2021 Urine microalbumin profile DTaP,Tdap,Td Vaccine (7 - Td or Tdap) [facility] Start: 08-23-2021 Patient encounter procedure Aileen Sanon Start: 2016 Screening for malignant neoplasm of cervix [facility] Start: 2014 Pneumococcal vaccination Pneumococcal Vaccine (1 of 2 - PCV) [facility] Start: 2014 Shingrix Vaccine (1 of 2) Shingrix Vaccine (1 of 2) [facility] Start: 2014 Urine microalbumin profile [facility] Start: 2013 Anxiety Screening Anxiety Screening [facility] Start: 2013 Depression Screening Depression Screening [facility] Start: 2013 HEPATITIS C SCREENING HEPATITIS C SCREENING [facility] Start: 2013 Hepatitis C screening Hepatitis C Screening [facility] Start: 2013 HIV SCREENING HIV SCREENING [facility] Start: 2013 HIV screening HIV Screening [facility] Start: 2009 PEDS TO ADULT TRANSITION ANNUAL ASSESSMENT PEDS TO ADULT TRANSITION ANNUAL ASSESSMENT [facility] Start: 2008 Varicella vaccination Varicella Vaccines (1 of 2 - 13+ 2-dose series) [facility] Start: 2007 Adult depression screening assessment DEPRESSION SCREENING [facility] Start: 2007 PEDS TO ADULT TRANSITION INITIAL DISCUSSION PEDS TO ADULT TRANSITION INITIAL DISCUSSION [facility] Start: 2006 HPV VACCINE (1 - 2-dose series) HPV VACCINE (1 - 2-dose series) [facility] Start: 2001 PNEUMOCOCCAL (1 - PCV) PNEUMOCOCCAL (1 - PCV) [facility] Start: 2001 Pneumococcal vaccination [facility] Start: 2000 COVID-19 VACCINE (#1) COVID-19 VACCINE (#1) [facility] Start: 2000 COVID-19 VACCINE (1) COVID-19 VACCINE (1) [facility] Start: 04-05-1996 COVID-19 VACCINE (#1) COVID-19 VACCINE (#1) [facility] Start: 1995 HEPATITIS B (1 of 3 - 3-dose series) HEPATITIS B (1 of 3 - 3-dose series) [facility] Start: 1995 Hepatitis B Vaccine (1 of 3 - 3-dose series) Hepatitis B Vaccine (1 of 3 - 3-dose series) [facility] Start: 1995 HIV screening HIV Screening [facility] Start: 1995 Lipid panel Lipid Panel [facility] Start: 1995 Yearly Adult Physical Yearly Adult Physical [facility] End: 03-28-2024 Bacteria identified in Urine by Culture Urine culture Microbiology Add-On STAT (Lab) for 1 Occurrences starting 03/28/2024 until 03/28/2024 [facility] Work Phone: Comment on above: STAT (Lab) for 1 Occurrences starting until 03/28/2024 Bacteria identified in Urine by Culture BACTERIAL CULTURE, URINE Microbiology Routine Encounter for supervision of high risk in first trimester, antepartum 10/31/2024 11:35 AM [facility] Bacteria identified in Urine by Culture BACTERIAL CULTURE, URINE Microbiology Routine Supervision of high risk in third trimester ([facility]) Insulin controlled gestational diabetes mellitus (GDM) in third trimester ([facility]) 33 weeks gestation of ([facility]) History of smoking Obesity affecting in third trimester, unspecified obesity type ([facility]) Cramping affecting , antepartum ([facility]) Ordered: 04/27/2025 [facility] Work Phone: Comment on above: Ordered: 04/27/2025 Chlamydia trachomatis+Neisseria gonorrhoeae DNA [Presence] in Unspecified specimen by EDUARDO with probe detection GONORRHEA/CHLAMYDIA NAAT Lab Routine Encounter for supervision of high risk in first trimester, antepartum Screen for STD (sexually transmitted disease) 10/31/2024 11:35 AM EST [facility] End: 03-18-2025 Choriogonadotropin.beta subunit [Units/volume] in Serum or Plasma HCG QUANTITATIVE Lab Routine Missed menses 2x per week for 4 Occurrences starting 03/18/2024 until 03/18/2025 [facility] Work Phone: Comment on above: 2x per week for 4 Occurrences starting 0 03/18/2024 until 03/18/2025 Choriogonadotropin.b eta subunit [Units/volume] in Serum or Plasma HCG QUANTITATIVE Lab Routine Missed menses 03/18/2024 3:00 PM EDT [facility] End: 04-02-2025 Choriogonadotropin.beta subunit [Units/volume] in Serum or Plasma HCG QUANTITATIVE Lab STAT Ectopic without intrauterine , unspecified location 3x per week for 3 Occurrences starting 04/02/2024 until 04/02/2025, 1 completed [facility] Work Phone: Comment on above: 3x per week for 3 Occurrences starting 0 04/02/2024 until 04/02/2025, 1 completed End: 10-15-2025 Choriogonadotropin.beta subunit [Units/volume] in Serum or Plasma HCG QUANTITATIVE Lab Routine Spotting in early 2x per week for 2 Occurrences starting 10/15/2024 until 10/15/2025 [facility] Work Phone: Comment on above: 2x per week for 2 Occurrences starting 0 10/15/2024 until 10/15/2025 End: 03-28-2024 ECG 12 Lead [facility] Work Phone: Comment on above: Once for 1 Occurrences starting 03/28/20 until 03/28/2024 End: 03-28-2024 Extra Urine Griggs Tube Extra Urine [facility] Lab Timed Once for 1 Occurrences starting 03/28/2024 until 03/28/2024 [facility] Work Phone: Comment on above: Once for 1 Occurrences starting 03/28/20 24 until 03/28/2024 End: 06-14-2025 nonstress test NON-STRESS TEST Procedures Routine Gestational diabetes mellitus (GDM) requiring insulin (HCC) Once per week for 10 Occurrences starting 04/21/2025 until 06/14/2025 [facility] Work Phone: Comment on above: Once per week for 10 Occurrences startin g 04/21/2025 until 06/14/2025 End: 08-12-2025 OBSTETRIC ULTRASOUND WHI OBSTETRIC ULTRASOUND WHI Anc Imaging Routine Obesity affecting in second trimester, unspecified obesity type (HCC) Supervision of other high risk pregnancies, third trimester (HCC) Marginal insertion of umbilical cord affecting management of mother in third trimester (HCC) Once per month for 2 Occurrences starting 03/25/2025 until 08/12/2025 [facility] Work Phone: Comment on above: Once per month for 2 Occurrences startin g 03/25/2025 until 08/12/2025 PAP TEST PAP TEST Lab Heladio natalie Encounter for supervision of high risk in first trimester, antepartum Screening for cervical cancer 10/31/2024 11:35 AM [facility] Patient Education Kick Counts ED False Labor OB Triage: Return to Hospital or Notify Physician if you Experience: [facility] Work Phone: PELVIC US WHI PELVIC US WHI An c Imaging Routine DUB (dysfunctional uterine bleeding) Irregular periods Class 3 severe obesity with body mass index (BMI) of 40.0 to 44.9 in adult, unspecified obesity type, unspecified whether serious comorbidity present (HCC) 1 Occurrences starting 02/01/2022 [facility] Work Phone: Comment on above: 1 Occurrences starting 02/01/2022 POC ATTORNEY AT LAW ULTRASOUND POC ATTORNEY AT LAW ULTRASO UND Anc Imaging Routine Encounter for supervision of high risk in first trimester, antepartum Ordered: 10/31/2024 [facility] Work Phone: Comment on above: Ordered: 10/31/2024 ROUTINE, GR OUP B STREPTOCOCCUS BY PCR ROUTINE, GROUP B STREPTOCOCCUS BY PCR Microbiology Routine 35 weeks gestation of (HCC) Gestational hypertension without significant proteinuria in third trimester (HCC) Supervision of high risk due to social problems, third trimester (HCC) Insulin controlled gestational diabetes mellitus (GDM) in third trimester (HCC) 05/12/2025 2:40 PM EDT [facility] Work Phone: TRICHOMONAS VAGINALI S NAAT TRICHOMONAS VAGINALIS NAAT Lab Routine Encounter for supervision of high risk in first trimester, antepartum Screen for STD (sexually transmitted disease) 10/31/2024 11:35 AM [facility] End: 03-28-2024 Urinalysis complete W Reflex Culture panel - Urine [facility] Work Phone: Comment on above: Once (Lab) for 1 Occurrences starting until 03/28/2024 End: 03-03-2023 Us transvaginal US FEMALE PELVIS TRANSVAG Radiology Routine DUB (dysfunctional uterine bleeding) Irregular periods Class 3 severe obesity with body mass index (BMI) of 40.0 to 44.9 in adult, unspecified obesity type, unspecified whether serious comorbidity present (HCC) 1 Occurrences starting 02/01/2022 until 03/03/2023 [facility] Work Phone: Comment on above: 1 Occurrences starting 02/01/2022 until 03/03/2023 [facility] Immunizations Immunization Date Immunization Notes Care Provider Fa roland 04-07-2025 tetanus toxoid, redu rosie diphtheria toxoid, and acellular pertussis vaccine, adsorbed Wh[facility] 04-22-2012 human papilloma viru s vaccine, quadrivalent No PCP None [address] Work Phone: Comment on above: Series: 12-18-2011 human papilloma viru s vaccine, quadrivalent No PCP None [address] Work Phone: Comment on above: Series: 10-13-2011 human papilloma viru s vaccine, quadrivalent No PCP None [address] Work Phone: Comment on above: Series: 10-13-2011 tetanus toxoid, redu rosie diphtheria toxoid, and acellular pertussis vaccine, adsorbed No PCP None [address] Work Phone: Comment on above: Series: 03-25-2001 diphtheria, tetanus toxoids and acellular pertussis vaccine, unspecified formulation Merry White MD Work Phone: [facility] Work Phone: 03-25-2001 hepatitis B vaccine, pediatric or pediatric/adolescent dosage Merry White MD Work Phone: [facility] 12-31-2000 measles, mumps and rubella virus vaccine Merry White MD Work Phone: [facility] 12-31-2000 poliovirus vaccine, inactivated Merry White MD Work Phone: [facility] 01-20-1997 diphtheria, tetanus toxoids and pertussis vaccine Merry White MD Work Phone: [facility] 10-08-1996 measles, mumps and rubella virus vaccine Merry White MD Work Phone: [facility] 05-12-1996 diphtheria, tetanus toxoids and pertussis vaccine Merry White MD Work Phone: [facility] 05-12-1996 haemophilus influenz ae type b vaccine, conjugate unspecified formulation Merry White MD Work Phone: [facility] 05-12-1996 trivalent poliovirus vaccine, live, oral Merry White MD Work Phone: [facility] 03-26-1996 diphtheria, tetanus toxoids and pertussis vaccine Merry White MD Work Phone: [facility] 03-26-1996 haemophilus influenz ae type b vaccine, conjugate unspecified formulation Merry White MD Work Phone: [facility] 03-26-1996 trivalent poliovirus vaccine, live, oral Merry White MD Work Phone: [facility] 1995 diphtheria, tetanus toxoids and pertussis vaccine Merry White MD Work Phone: [facility] 1995 haemophilus influenz ae type b vaccine, conjugate unspecified formulation Merry White MD Work Phone: [facility] 1995 trivalent poliovirus vaccine, live, oral Merry White MD Work Phone: [facility] 1995 hepatitis B vaccine, pediatric or pediatric/adolescent dosage Merry White MD Work Phone: [facility] 1995 hepatitis B vaccine, pediatric or pediatric/adolescent dosage Merry White MD Work Phone: [facility] Payers Date Payer Category Payer Self-pay 2021 Private Health Insurance ANJALI PEREZ OA [id number] 2021-Present [phone] [facility] [id number] [place] [address] Open Access [id number] 2021 Private Health Insurance [id number] 2021 Private Health Insurance [id number] 1995 Unknown [id number] 1995 Unknown [id number] Unknown Unknown [id number] Unknown [id number] Unknown [id number] Social History Date Type Detail Facility [facility] Other Phone (unformatted): [phone] Tobacco smoking consumption unknown [facility] Other Phone (unformatted): [phone] Start: 03-02-2022 End: 07-11-2023 Minimum alcohol consumption Minimum alcohol consumption [address] Work Phone: Comment on above: she smokes hookah, n ot cigarettes; Start: 11-29-2017 End: 07-11-2023 Tobacco smoking status NHIS Smokes tobacco daily [facility] Start: 11-29-2017 End: 10-31-2024 Tobacco use and exposure Smokeless tobacco non-user [facility] Start: 02-01-2022 End: 06-19-2024 Alcohol intake Current drinker of alcohol (finding) [facility] Start: 02-01-2022 History SDOH Alcohol Comment occasional [facility] Start: 1995 Sex Assigned At Not on file [facility] Start: 01-17-2022 End: 03-28-2024 Exposure to SARS-CoV-2 (event) Not sure [facility] Start: 1995 Sex Assigned At Female C [facility] Start: 03-02-2022 End: 07-11-2023 Tobacco use panel [facility] Start: 01-09-2017 National Score (1-10 0), lower number is lower risk 66 [facility] Start: 02-23-2022 Gender identity Identifies as female gender (finding) [facility] Start: 02-23-2022 Sexual orientation Heterosexual (fin jair) [facility] History of tobacco use Pipe Smoker [facility] Work Phone: Start: 10-31-2024 Tobacco smoking stat us WAIS Ex-smoker [facility] End: 10-02-2024 History of tobacco use Current smoker [facility] End: 10-02-2024 History of tobacco use Cigarette Smoker [facility] Start: 10-31-2024 End: 05-19-2025 Alcoholic beverage intake Ex-drinker (finding) [facility] Start: 10-30-2024 Education 13 [facility] Start: 09-21-2024 [facility] Medical Equipment Procedure Code Equipment Code Equipment Origin al Text Equipment Identifier Dates Use as directed to check glucose levels up to seven times daily. [id number] Start: 03-27-2025 Use as directed to check glucose levels up to seven times daily. [id number] Start: 03-27-2025 1 each two times a day. [id number] Start: 04-23-2025 Goals Date Patient Goal Desired Activity /State Personal health goal Clinical Notes 02-01-2022 to 05-22-2025 Nicolette Bobo APRN.CNM - 05/22/2025 10:01 AM EDTPrenatal Quick Notes - Nicolette Bobo APRN.CNM - 05/22/2025 9:59 AM EDTPrenatal Quick Notes - Nicolette Bobo APRN.CNM - 05/22/2025 9:59 AM EDT Note Date & Type Note Facility 05-22-2025 Note HNO ID: [id number] Author: NICOLETTE BOBO APRN.CNM Service: ? Author Type: Snake [facility]mer Type: Progress Notes Filed: 05/22/2025 10:38 Note Text: NST SUMMARY PROVIDER ASSESSMENT AND INTERPRETATION Millie Watkins is a 29 year old female, , who is at 36w5d with an VIRGIL of 06/14/2025, by Last Menstrual Period dating method. Indications for NST: Gestational Diabetes - Insulin Controlled and Gestational HTN Baseline: 120 Variability: Moderate Accelerations: Present 15 X 15 Decelerations: None Contractions: TOCO: None Interpretation: Category I and Reactive SIGNATURE: Nicolette Bobo APRN.CNM [facility] 05-22-2025 History of Present illness Narrative NST SUMMARY PROVIDER ASSESSMENT AND INTERPRETATION Millie Watkins is a 29 year old female, , who is at 36w5d with an VIRGIL of 06/14/2025, by Last Menstrual Period dating method. Indications for NST: Gestational Diabetes - Insulin Controlled and Gestational HTN Baseline: 120 Variability: Moderate Accelerations: Present 15 X 15 Decelerations: None Contractions: TOCO: None Interpretation: Category I and Reactive SIGNATURE: Nicolette Bobo APRN.CNM documented in this encounter [facility] 05-22-2025 Progress note Formatting of t his note might be different from the original. Patient here for NST only. NST reactive. Cat. 1 tracing. No contractions noted. Patient scheduled for induction of labor on 05/24/25 at 7 pm. Nicolette Bobo APRN.CNM [facility] 05-22-2025 Miscellaneous Notes Patient here for NST only. NST reactive. Cat. 1 tracing. No contractions noted. Patient scheduled for induction of labor on 05/24/25 at 7 pm. Nicolette Bobo APRN.CNM documented in this encounter [facility] 05-22-2025 Instructions Lima Anderson MA - 05/22/2025 9:28 AM EDT SEQUENTIAL SCREENINGS The [facility] offers sequential screenings for women who are interested in screenings for chromosomal abnormalities and certain defects during a . The sequential screen combines ultrasound and blood tests to determine the risk of chromosomal abnormalities, including Down's Syndrome (Trisomy 21) and Trisomy 18, as well as open neural tube defects including spina bifida. Ultrasound examination is performed between 11 weeks and 13 weeks gestational age. Blood tests are drawn after the ultrasound and again later in the between 15 and 21 weeks gestational age. Please let your physician know if you are interested in this testing. It will require an appointment with our lot technician. This is not an ultrasound performed by a physician in our office during a routine visit. SIGNS AND SYMPTOMS OF LABOR 1. Contractions every 10 minutes or more often 2. Clear, pink, or brownish fluid (water) leaking from vagina 3. Feeling that baby is pushing down, pressure 4. Low, dull backache 5. Cramps that feel like a period 6. Cramps with or without diarrhea If you notice any of the above symptoms, contact our office at [phone] and ask to speak with a nurse. After hours, you can call doctors registry at [phone] OR call [facility] at [phone] and ask to have the doctor venereal disease control head paged. If you consider this an emergency, dial 9-1-0 or go to your nearest emergency department. NEED HELP? Are you dealing with a violent or abusive relationship? Are you a victim of rape or sexual assult? Call [facility] ([facility] 24 hour Crisis Hotline: 438.992.3877 or 390-839-3893. MANUAL Your Guide to a Healthy manual is now on-line. Visit [email or web address] to download your free copy documented in this encounter [facility] 05-19-2025 Note Indication Evaluation of well-being. Maternal obesity, BMI >30. Gestational diabetes - insulin dependent Impression REMOTE READ - Single, live, intrauterine . - presentation is cephalic. - The amniotic fluid volume is normal amount with an MVP of 4.5 cm and an JOHN of 11.8 cm. - The placenta is anterior, fundal. - BPP 05/08. Recommendations - Weekly BPP alternating with NST q 3-4 days - Additional follow up as clinically indicated. Maternal Assessment Height 163 cm Height (ft) 5 ft Height (in) 4 in Physical Exam Initial weight (lb) 194 lb Initial BMI 33.30 kg/m Growth Overview Exam date GA BPD (mm) HC (mm) AC (mm) FL (mm) HL (mm) EFW (g) 01/28/2025 20w 3d 50.4 81% 189 73% 172.1 91% 33.2 63% 32.9 75% 417 88% 04/07/2025 30w 2d 83.4 99% 302.7 91% 272.5 76% 59.5 82% 1799 81% 05/15/2025 35w 5d 100.4 >99% 351.6 97% 337 95% 66.9 38% 3165 87% Method Transabdominal ultrasound examination Alexandre . Number of fetuses: 1 Dating LMP on: 09/07/2024 GA by LMP 36 w + 2 d VIRGIL by LMP: 06/14/2025 GA by prior assessment 36 w + 2 d VIRGIL by prior assessment: 06/14/2025 Assigned: based on stated VIRGIL, selected on 05/15/2025 Assigned GA 36 w + 2 d Assigned VIRGIL: 06/14/2025 General Evaluation Cardiac activity present. FHR 135 bpm. movements: present. Presentation: cephalic Placenta: Placental site: anterior, fundal Umbilical cord: Cord vessels: 3 vessel cord Amniotic Fluid Assessment Amount of AF: normal amount MVP 4.5 cm. JOHN 11.8 cm. Q1 4.5 cm, Q2 0.0 cm, Q3 3.0 cm, Q4 4.3 cm Biophysical Profile 2: breathing movements 2: Gross body movements 2: tone 2: Amniotic fluid volume 05/08 Biophysical profile score Anatomy sex: male. Performed By: Heather Peres RDMS Read By: Adama Balderas M.D. [facility] 05-19-2025 Progress note Formatting of t his note might be different from the original. KJ - S: Millie denies LOF, contractions or vaginal bleeding. O: 36w2d, see flow sheet SENSITIVE EXAM: Sensitive exam not performed. A/P: Assessment & Plan 36 weeks gestation of (HCC) Orders: URINE OB DIP B/O Gestational hypertension without significant proteinuria in third trimester (HCC) BP's at home typically 140/90 Orders: URINE OB DIP B/O Supervision of high risk due to social problems, third trimester (HCC) Orders: URINE OB DIP B/O Insulin controlled gestational diabetes mellitus (GDM) in third trimester (HCC) Orders: URINE OB DIP B/O Maternal obesity syndrome, antepartum, third trimester (HCC) Orders: URINE OB DIP B/O Growth US with BPP today IOL scheduled Sunday night (37wks) Reviewed BP, preE, PTL & FM precautions George Vieira MD [facility] 05-19-2025 Miscellaneous Notes KJ - S: Millie denies LOF, contractions or vaginal bleeding. O: 36w2d, see flow sheet SENSITIVE EXAM: Sensitive exam not performed. A/P: Assessment & Plan 36 weeks gestation of (HCC) Orders: URINE OB DIP B/O Gestational hypertension without significant proteinuria in third trimester (HCC) BP's at home typically 140/90 Orders: URINE OB DIP B/O Supervision of high risk due to social problems, third trimester ([facility]) Orders: URINE OB DIP B/O Insulin controlled gestational diabetes mellitus (GDM) in third trimester (HCC) Orders: URINE OB DIP B/O Maternal obesity syndrome, antepartum, third trimester ([facility]) Orders: URINE OB DIP B/O Growth US with BPP today IOL scheduled Sunday night (37wks) Reviewed BP, preE, PTL & FM precautions George Vieira MD documented in this encounter [facility] 05-19-2025 Instructions Devika Peacock MA - 05/19/2025 9:30 AM EDT SEQUENTIAL SCREENINGS The [facility] offers sequential screenings for women who are interested in screenings for chromosomal abnormalities and certain defects during a . The sequential screen combines ultrasound and blood tests to determine the risk of chromosomal abnormalities, including Down's Syndrome (Trisomy 21) and Trisomy 18, as well as open neural tube defects including spina bifida. Ultrasound examination is performed between 11 weeks and 13 weeks gestational age. Blood tests are drawn after the ultrasound and again later in the between 15 and 21 weeks gestational age. Please let your physician know if you are interested in this testing. It will require an appointment with our lot technician. This is not an ultrasound performed by a physician in our office during a routine visit. SIGNS AND SYMPTOMS OF LABOR 1. Contractions every 10 minutes or more often 2. Clear, pink, or brownish fluid (water) leaking from vagina 3. Feeling that baby is pushing down, pressure 4. Low, dull backache 5. Cramps that feel like a period 6. Cramps with or without diarrhea If you notice any of the above symptoms, contact our office at [phone] and ask to speak with a nurse. After hours, you can call doctors registry at [phone] OR call [facility] at [phone] and ask to have the doctor venereal disease control head paged. If you consider this an emergency, dial 9-1-0 or go to your nearest emergency department. NEED HELP? Are you dealing with a violent or abusive relationship? Are you a victim of rape or sexual assult? Call [facility] ([place]) 24 hour Crisis Hotline: 769.271.2575 or 176-165-0106. MANUAL Your Guide to a Healthy manual is now on-line. Visit [email or web address] ncyGuide to download your free copy documented in this encounter [facility] 05-15-2025 Note Indication Evaluation of growth Gestational diabetes - insulin dependent, Maternal obesity, BMI >30 Impression - Single, live, intrauterine . - presentation is cephalic. - The biometry is consistent with the assigned gestational dating. - The EFW is 3165 g, at the 87%. AC is at the 95%. This is consistent with macrosomia. - The amniotic fluid volume is normal amount with an MVP of 3.4 cm and an JOHN of 7.9 cm. - The placenta is anterior, fundal. - BPP 05/08. - No malformations visualized on a limited survey as detailed below. Recommendations Serial growth ultrasounds every 4 weeks. Twice weekly testing. Additional follow-up as clinically indicated. Maternal Assessment Height 163 cm Height (ft) 5 ft Height (in) 4 in Physical Exam Initial weight (lb) 194 lb Initial BMI 33.30 kg/m Maternal assessment other: 3 Para 0 REMOTE READ Method Transabdominal ultrasound examination Alexandre . Number of fetuses: 1 Dating LMP on: 09/07/2024 GA by LMP 35 w + 5 d VIRGIL by LMP: 06/14/2025 GA by prior assessment 35 w + 5 d VIRGIL by prior assessment: 06/14/2025 Ultrasound examination on: 05/15/2025 GA by U/S based upon: AC, BPD, Femur GA by U/S 37 w + 5 d VIRGIL by U/S: 05/31/2025 Assigned: based on stated VIRGIL, selected on 05/15/2025 Assigned GA 35 w + 5 d Assigned VIRGIL: 06/14/2025 General Evaluation Cardiac activity present. FHR 141 bpm. movements: present. Presentation: cephalic Placenta: Placental site: anterior, fundal Umbilical cord: Cord vessels: 3 vessel cord. Insertion site: marginal insertion Amniotic fluid: Amount of AF: normal amount. MVP 3.4 cm. JOHN 7.9 cm. Q1 3.4 cm, Q2 2.5 cm, Q3 0.0 cm, Q4 2.0 cm Biophysical Profile 2: breathing movements 2: Gross body movements 2: tone 2: Amniotic fluid volume 05/08 Biophysical profile score Growth Overview Exam date GA BPD (mm) HC (mm) AC (mm) FL (mm) HL (mm) EFW (g) 01/28/2025 20w 3d 50.4 81% 189 73% 172.1 91% 33.2 63% 32.9 75% 417 88% 04/07/2025 30w 2d 83.4 99% 302.7 91% 272.5 76% 59.5 82% 1799 81% 05/15/2025 35w 5d 100.4 >99% 351.6 97% 337 95% 66.9 38% 3165 87% Biometry Standard BPD 100.4 mm 41w 2d >99% Hadlock OFD 121.0 mm -/- 90% Nicolaides HC 351.6 mm -/- 97% Christian AC 337.0 mm 37w 4d 95% Hadlock Femur 66.9 mm 34w 1d 38% Christian EFW 3,165 g 37w 5d 87% Hadlock EFW (lb) 7 lb EFW (oz) 0 oz EFW by: Hadlock (HC-AC-FL) Extended Table Keeper 8.6 mm Extremities / Bony Struc FL / HC 0.19 Other Structures FHR 141 bpm Anatomy Lateral ventricles: normal Cavum septi pellucidi: normal Cerebellum: normal Cisterna magna: normal 4-chamber view: normal RVOT view: normal LVOT view: normal 3-vessel view: normal Heart / Thorax Situs: situs solitus (normal) Diaphragm: normal Stomach: normal Kidneys: normal Bladder: normal sex: male Wants to know sex: yes Performed By: Minda Mireles RDMS, RVT Read By: Herlinda Graham M.D. [facility] 05-15-2025 Progress note Formatting of t his note might be different from the original. S: Millie Watkins is a 29 year old female who presents at 06/14/2025, by Last Menstrual Period for a routine visit. Denies headache, visual changes, chest pain, shortness of breath, vaginal bleeding, leakage of fluid, or dysuria. Feeling well, no complaints. Good movement, No contractions O: See flow sheet Gen: No apparent distress Abd: Gravid, nontender GBS completed and negative BP at home 140 /90 first thing in the more but gets better over the day [place] for induction 8/2 EFW 87% BPP 88 JOHN 8 Nst and BPP next week ASSESSMENT/PLAN: 1. 35 weeks gestation of ([facility]) - ICD9: V22.2, ICD10: Z3A.35 (primary diagnosis) - URINE OB DIP B/O 2. Gestational hypertension without significant proteinuria in third trimester ([facility]) - ICD9: 642.33, ICD10: O13.3 Stable - URINE OB DIP B/O 3. Supervision of high risk due to social problems, third trimester ([facility]) - ICD9: V23.89, ICD10: O09.73 - URINE OB DIP B/O 4. Insulin controlled gestational diabetes mellitus (GDM) in third trimester ([facility]) - ICD9: 648.83, ICD10: O24.414 Stable - URINE OB DIP B/O 5. Maternal obesity syndrome, antepartum, third trimester ([facility]) - ICD9: 649.13, 278.00, ICD10: O99.213 - URINE OB DIP B/O Zahra Muniz MD [facility] 05-15-2025 Miscellaneous Notes S: Millie Watkins is a 29 year old female who presents at 06/14/2025, by Last Menstrual Period for a routine visit. Denies headache, visual changes, chest pain, shortness of breath, vaginal bleeding, leakage of fluid, or dysuria. Feeling well, no complaints. Good movement, No contractions O: See flow sheet Gen: No apparent distress Abd: Gravid, nontender GBS completed and negative BP at home 140 /90 first thing in the more but gets better over the day [place] for induction 8/2 EFW 87% BPP 88 JOHN 8 Nst and BPP next week ASSESSMENT/PLAN: 1. 35 weeks gestation of ([facility]) - ICD9: V22.2, ICD10: Z3A.35 (primary diagnosis) - URINE OB DIP B/O 2. Gestational hypertension without significant proteinuria in third trimester ([facility]) - ICD9: 642.33, ICD10: O13.3 Stable - URINE OB DIP B/O 3. Supervision of high risk due to social problems, third trimester ([facility]) - ICD9: V23.89, ICD10: O09.73 - URINE OB DIP B/O 4. Insulin controlled gestational diabetes mellitus (GDM) in third trimester ([facility]) - ICD9: 648.83, ICD10: O24.414 Stable - URINE OB DIP B/O 5. Maternal obesity syndrome, antepartum, third trimester ([facility]) - ICD9: 649.13, 278.00, ICD10: O99.213 - URINE OB DIP B/O Zahra Muniz MD documented in this encounter [facility] 05-15-2025 Instructions Lima Anderson MA - 05/15/2025 11:00 AM EDT SEQUENTIAL SCREENINGS The [facility] offers sequential screenings for women who are interested in screenings for chromosomal abnormalities and certain defects during a . The sequential screen combines ultrasound and blood tests to determine the risk of chromosomal abnormalities, including Down's Syndrome (Trisomy 21) and Trisomy 18, as well as open neural tube defects including spina bifida. Ultrasound examination is performed between 11 weeks and 13 weeks gestational age. Blood tests are drawn after the ultrasound and again later in the between 15 and 21 weeks gestational age. Please let your physician know if you are interested in this testing. It will require an appointment with our lot technician. This is not an ultrasound performed by a physician in our office during a routine visit. SIGNS AND SYMPTOMS OF LABOR 1. Contractions every 10 minutes or more often 2. Clear, pink, or brownish fluid (water) leaking from vagina 3. Feeling that baby is pushing down, pressure 4. Low, dull backache 5. Cramps that feel like a period 6. Cramps with or without diarrhea If you notice any of the above symptoms, contact our office at [phone] and ask to speak with a nurse. After hours, you can call doctors registry at [phone] OR call [facility] at [phone] and ask to have the doctor venereal disease control head paged. If you consider this an emergency, dial 9-1-5 or go to your nearest emergency department. NEED HELP? Are you dealing with a violent or abusive relationship? Are you a victim of rape or sexual assult? Call [facility] ([facility] 24 hour Crisis Hotline: 162.605.1067 or 606-365-0691. MANUAL Your Guide to a Healthy manual is now on-line. Visit [email or web address] [email or web address] to download your free copy documented in this encounter [facility] 05-14-2025 Telephone encounter Note Patient called and notified. L&D notified. Updated H&P faxed. Zahra Baez RN [facility] 05-14-2025 Miscellaneous Notes Patient called and notified. L&D notified. Updated H&P faxed. Zahra Baez RN I recommend L&D for complete evaluation. George Vieira MD 35w4d Patient called to report the following BPs 130/100, 134/96, and 146/95 Has a LINDER, but she considers it mild with her hx of migraines. No RUQ pain or vision changes. Should we send patient over to L&D with SW at the hospital and no openings in office this morning? Patient prefers to come here and not the hospital. Zahra Baez RN documented in this encounter [facility] 05-14-2025 Telephone encounter Note I recommend L&D for complete evaluation. George Vieira MD [facility] 05-14-2025 Telephone encounter Note 35w4d Patient called to report the following BPs 130/100, 134/96, and 146/95 Has a LINDER, but she considers it mild with her hx of migraines. No RUQ pain or vision changes. Should we send patient over to L&D with SW at the hospital and no openings in office this morning? Patient prefers to come here and not the hospital. Zahra Highman, RN [facility] 05-12-2025 Progress note Formatting of t his note might be different from the original. KJ - S: Millie denies LOF, contractions or vaginal bleeding. O: 35w2d, see flow sheet SENSITIVE EXAM: Sensitive exam not performed. A/P: Assessment & Plan 35 weeks gestation of ([facility]) Orders: URINE OB DIP B/O ROUTINE, GROUP B STREPTOCOCCUS BY PCR Gestational hypertension without significant proteinuria in third trimester ([facility]) BP log reviewed & normal to mildly elevated at home. Orders: URINE OB DIP B/O ROUTINE, GROUP B STREPTOCOCCUS BY PCR Supervision of high risk due to social problems, third trimester ([facility]) Orders: URINE OB DIP B/O ROUTINE, GROUP B STREPTOCOCCUS BY PCR Insulin controlled gestational diabetes mellitus (GDM) in third trimester ([facility]) BS log reviewed & majority normal. Orders: URINE OB DIP B/O ROUTINE, GROUP B STREPTOCOCCUS BY PCR Reviewed PTL, FM & preE precautions George Vieira MD [facility] 05-12-2025 Miscellaneous Notes KJ - S: Millei denies LOF, contractions or vaginal bleeding. O: 35w2d, see flow sheet SENSITIVE EXAM: Sensitive exam not performed. A/P: Assessment & Plan 35 weeks gestation of ([facility]) Orders: URINE OB DIP B/O ROUTINE, GROUP B STREPTOCOCCUS BY PCR Gestational hypertension without significant proteinuria in third trimester ([facility]) BP log reviewed & normal to mildly elevated at home. Orders: URINE OB DIP B/O ROUTINE, GROUP B STREPTOCOCCUS BY PCR Supervision of high risk due to social problems, third trimester ([facility]) Orders: URINE OB DIP B/O ROUTINE, GROUP B STREPTOCOCCUS BY PCR Insulin controlled gestational diabetes mellitus (GDM) in third trimester ([facility]) BS log reviewed & majority normal. Orders: URINE OB DIP B/O ROUTINE, GROUP B STREPTOCOCCUS BY PCR Reviewed PTL, FM & preE precautions George Vieira MD documented in this encounter [facility] 05-12-2025 Note HNO ID: [id number] Author: GEORGE VIEIRA MD Service: ? Author Type: Physician Type: Progress Notes Filed: 05/12/2025 15:05 Note Text: NST SUMMARY PROVIDER ASSESSMENT AND INTERPRETATION Millie Watkins is a 29 year old female, , who is at 35w2d with an VIRGIL of 06/14/2025, by Last Menstrual Period dating method. Indications for NST: Gestational Diabetes - Insulin Controlled, Gestational HTN, and Obesity Baseline: 120 Variability: Moderate Accelerations: Present 15 X 15 Decelerations: None Contractions: TOCO: None Interpretation: Reactive SIGNATURE: George Vieira MD [facility] 05-12-2025 History of Present illness Narrative NST SUMMARY PROVIDER ASSESSMENT AND INTERPRETATION Millie Watkins is a 29 year old female, , who is at 35w2d with an VIRGIL of 06/14/2025, by Last Menstrual Period dating method. Indications for NST: Gestational Diabetes - Insulin Controlled, Gestational HTN, and Obesity Baseline: 120 Variability: Moderate Accelerations: Present 15 X 15 Decelerations: None Contractions: TOCO: None Interpretation: Reactive SIGNATURE: George Vieira MD documented in this encounter [facility] 05-12-2025 Instructions Devika Peacock MA - 05/12/2025 2:19 PM EDT SEQUENTIAL SCREENINGS The [facility] offers sequential screenings for women who are interested in screenings for chromosomal abnormalities and certain defects during a . The sequential screen combines ultrasound and blood tests to determine the risk of chromosomal abnormalities, including Down's Syndrome (Trisomy 21) and Trisomy 18, as well as open neural tube defects including spina bifida. Ultrasound examination is performed between 11 weeks and 13 weeks gestational age. Blood tests are drawn after the ultrasound and again later in the between 15 and 21 weeks gestational age. Please let your physician know if you are interested in this testing. It will require an appointment with our lot technician. This is not an ultrasound performed by a physician in our office during a routine visit. SIGNS AND SYMPTOMS OF LABOR 1. Contractions every 10 minutes or more often 2. Clear, pink, or brownish fluid (water) leaking from vagina 3. Feeling that baby is pushing down, pressure 4. Low, dull backache 5. Cramps that feel like a period 6. Cramps with or without diarrhea If you notice any of the above symptoms, contact our office at [phone] and ask to speak with a nurse. After hours, you can call doctors registry at [phone] OR call [facility] at [phone] and ask to have the doctor venereal disease control head paged. If you consider this an emergency, dial 9-1-8 or go to your nearest emergency department. NEED HELP? Are you dealing with a violent or abusive relationship? Are you a victim of rape or sexual assult? Call [facility] ([facility] 24 hour Crisis Hotline: 226.131.5252 or 228-367-4731. MANUAL Your Guide to a Healthy manual is now on-line. Visit [email or web address] ncyGuide to download your free copy documented in this encounter [facility] 05-07-2025 Note [facility] Medical Records Department [address] [place] [address] History Physical Exam 05/07/25 1514 MR#: [id number] Acct: [id number] Name: MILLIE WATKINS Rep #: [id number] : 1995 29 From: Merry White MD PCP: Care Physician,No Primary Status:DEP CLI Location: [facility] History and Physical Date of Admission: 05/22/25 HPI: The patient is a 28 year old female presenting for pre-operative visit. She is scheduled for , for previous c/s on 05/22/25. Procedure discussed along with risks, benefits and complications. Other alternatives discussed for management. Consent form signed? Yes. ? PAST MEDICAL HISTORY No past medical history on file. ? PAST SURGICAL HISTORY PAST SURGICAL HISTORYProcedureLateralityDate??? DELIVERY ONLY???09/29/2021???[facility] in 2022???[facility]?Pt reported 06/27/2023 ? CURRENT MEDICATIONS Current Outpatient MedicationsMedicationSigDispenseR efill???sertraline (ZOLOFT) 50 mg tabletTake 1 tablet by mouth once daily.90 tablet1???ferrous sulfate (IRON PO)Take by mouth.?ondansetron (ZOFRAN) 4 mg tabletTake 1 tablet by mouth every 8 hours as needed for nausea/vomiting.10 tablet0???MAGNESIUM ORALTake by mouth.? Vitamin w/ Iron ( VITAMIN PLUS LOW IRON) 27 mg iron- 1 mgTake 1 tablet by mouth once daily.?No current facility-administered medications for this visit. ? ALLERGIES: Patient has no known allergies. ??? PERSONAL HISTORY: SOCIAL HISTORY Social History???Tobacco Use???Smoking status:Never???Smokeless tobacco:NeverVaping Use???Vaping status:Never UsedSubstance Use Topics???Alcohol use:Never???Drug use:Never ??? FAMILY HISTORY: FAMILY HISTORY FAMILY HISTORY ProblemRelationAge of Onset???No Known ProblemsMother?No Known ProblemsFather?No Known ProblemsSister?No Known ProblemsBrother? REVIEW OF SYMPTOMS: GENERAL: denies fevers or chills ENDOCRINOLOGY: has not been on steroids Cardiology : denies palpitations or chest pain Respiratory: denies SOB or cough Hematology: denies history of prolonged bleeding or easy bruising or VTE Allergy: Denies history of personal or family history of allergy to anesthesia ??? PHYSICAL EXAMINATION: ??? VITALS: Blood pressure 118/73, pulse 100, height 157.5 cm (5' 2), weight 78.9 kg (174 lb), last menstrual period 08/21/2024, SpO2 97%, not currently . ??? GENERAL: The patient is well nourished, well hydrated in no acute distress. , The patient is oriented to time, place, and person. NECK: Supple. No lynphadenopathy, normal thyroid, no thyromegaly. LUNGS: Clear to auscultation bilaterally. no wheezes, rhonchi or rales HEART: Regular rate and rhythm, Normal heart sounds, and No murmurs or gallops abd- soft, nontender, gravid ??? IMPRESSION: Estimated Date of Delivery: 05/28/25 h/o 2 c/s ??? PLAN: The risks/benefits/alternatives and personal involved for the planned were reviewed with the patient. Her questions were answered to her satisfaction and she desires to proceed. Consent was signed. I reviewed with her postop instructions and expectations. ? I have reviewed and updated past medical and surgical history, medications and allergies Assessment Plan Assessment/Plan (1) Previous delivery affecting : 05/07/25 1514 Cosigner Signature (if applicable): CC: Dr. Merry White MD; No Primary Care Physician Signed [facility] 05-07-2025 Note HNO ID: [id number] Author: MERRY WHITE MD Service: ? Author Type: Physician Type: Progress Notes Filed: 05/07/2025 13:17 Note Text: NST SUMMARY PROVIDER ASSESSMENT AND INTERPRETATION Millie Watkins is a 29 year old female, , who is at 34w4d with an VIRGIL of 06/14/2025, by Last Menstrual Period dating method. Indications for NST: Obesity Baseline: 120 Variability: Moderate Accelerations: Present 15 X 15 Decelerations: None Contractions: TOCO: no regular ctxs Interpretation: Reactive SIGNATURE: Merry White MD [facility] 05-06-2025 History and physi zachery note [facility] 05-06-2025 Evaluation note Diagnosis Onset Date Resolution 34 weeks gestation of acute May 06, 2025 1:15pm Elevated blood pressure affecting , antepartum acute May 1:15pm GDM, class A2 acute May 06, 2025 1:15pm Headache acute May 06 1:15pm [facility] Work Phone: 1(724) 641-483808-06-2025 Evaluation note* Diagnosis Onset Date Resolution Status Admit Date 34 weeks gestation of acut e May 06, 2025 1:15pm Elevated blood pressure affecting , antepartum acute May 06, 2025 1:15pm GDM, class A2 acute May 06, 2025 1:15pm Headache acute May 06 1:15pm Previous delivery affecting acute May 06, 2025 1:15pm [facility] Work Phone: 1(469) 348-320807-28-2025 NoteHNO ID: [id number] Author: ZAHRA MUNIZ MD Service: ? Author Type: Physician Type: Progress Notes Filed: 04/27/2025 14:18 Note Text: NST SUMMARY PROVIDER ASSESSMENT AND INTERPRETATION Indications for NST: Diabetes - Insulin Controlled Baseline: 130 Variability: Moderate Accelerations: Present 15 X 15 Decelerations: None Interpretation: Reactive SIGNATURE: Zahra Muniz [facility]07-28-2025 History of Present illness Narrative* Zahra Muniz MD - 04/27/2025 2:17 PM EDT NST SUMMARY PROVIDER ASSESSMENT AND INTERPRETATION Indications for NST: Diabetes - Insulin Controlled Baseline: 130 Variability: Moderate Accelerations: Present 15 X 15 Decelerations: None Interpretation: Reactive SIGNATURE: Zahra Muniz MD [facility] Progress note* Quick Notes - Zahra Muniz MD - 04/27/2025 2:16 PM EDT S: Millie Watkins is a 29 year old female who presents at 06/14/2025, by Last Menstrual Period for a routine visit. Denies headache, visual changes, chest pain, shortness of breath, vaginal bleeding, leakage of fluid, or dysuria. Feeling well, no complaints. Good movement, No contractions O: See flow sheet Gen: No apparent distress Abd: Gravid, nontender NST reactive BG better all normal since starting insulin NPH 10 qhs Cramping but no contractions on the NST ASSESSMENT/PLAN: 1. Supervision of high risk in third trimester ([facility]) - ICD9: V23.9, ICD10: O09.93 (primary diagnosis) - UA DIP, URINE (POC) - BACTERIAL CULTURE, URINE 2. Insulin controlled gestational diabetes mellitus (GDM) in third trimester ([facility]) - ICD9: 648.83, ICD10: O24.414 - UA DIP, URINE (POC) - BACTERIAL CULTURE, URINE 3. 33 weeks gestation of ([facility]) - ICD9: V22.2, ICD10: Z3A.33 - UA DIP, URINE (POC) - BACTERIAL CULTURE, URINE 4. History of smoking - ICD9: V15.82, ICD10: Z87.891 - UA DIP, URINE (POC) - BACTERIAL CULTURE, URINE 5. Obesity affecting in third trimester, unspecified obesity type ([facility]) - ICD9: 649.13, ICD10: O99.213 NSTs weekly Growth q 4 - UA DIP, URINE (POC) - BACTERIAL CULTURE, URINE 6. Cramping affecting , antepartum ([facility]) - ICD9: 646.83, 789.00, ICD10: O26.899, R10.9 - BACTERIAL CULTURE, URINE Zahra Muniz MD [facility]07-28-2025 Miscellaneous Notes* Quick Notes - Zahra Muniz MD - 04/27/2025 2:16 PM EDT S: Millie Watkins is a 29 year old female who presents at 06/14/2025, by Last Menstrual Period for a routine visit. Denies headache, visual changes, chest pain, shortness of breath, vaginal bleeding, leakage of fluid, or dysuria. Feeling well, no complaints. Good movement, No contractions O: See flow sheet Gen: No apparent distress Abd: Gravid, nontender NST reactive BG better all normal since starting insulin NPH 10 qhs Cramping but no contractions on the NST ASSESSMENT/PLAN: 1. Supervision of high risk in third trimester ([facility]) - ICD9: V23.9, ICD10: O09.93 (primary diagnosis) - UA DIP, URINE (POC) - BACTERIAL CULTURE, URINE 2. Insulin controlled gestational diabetes mellitus (GDM) in third trimester ([facility]) - ICD9: 648.83, ICD10: O24.414 - UA DIP, URINE (POC) - BACTERIAL CULTURE, URINE 3. 33 weeks gestation of ([facility]) - ICD9: V22.2, ICD10: Z3A.33 - UA DIP, URINE (POC) - BACTERIAL CULTURE, URINE 4. History of smoking - ICD9: V15.82, ICD10: Z87.891 - UA DIP, URINE (POC) - BACTERIAL CULTURE, URINE 5. Obesity affecting in third trimester, unspecified obesity type ([facility]) - ICD9: 649.13, ICD10: O99.213 NSTs weekly Growth q 4 - UA DIP, URINE (POC) - BACTERIAL CULTURE, URINE 6. Cramping affecting , antepartum ([facility]CC) - ICD9: 646.83, 789.00, ICD10: O26.899, R10.9 - BACTERIAL CULTURE, URINE Zahra Muniz MD [facility] Instructions* Patient Instructions* Lima Anderson MA - 04/27/2025 1:36 PM EDT SEQUENTIAL SCREENINGS The [facility] offers sequential screenings for women who are interested in screenings for chromosomal abnormalities and certain defects during a . The sequential screen combinesultrasound and blood tests to determine the risk of chromosomal abnormalities, including Down's Syndrome (Trisomy 21) and Trisomy 18, as well as open neural tube defects including spina bifida. Ultrasound examination is performed between 11 weeks and 13 weeks gestational age. Blood tests are drawn after the ultrasound and again later in the between 15 and 21 weeks gestational age. Please let your physician know if you are interested in this testing. It will require an appointment withour lot technician. This is not an ultrasound performed by a physician in our office during a routine visit. SIGNS AND SYMPTOMS OF LABOR 1. Contractions every 10 minutes or more often 2. Clear, pink, or brownish fluid (water) leaking from vagina 3. Feeling that baby is pushing down, pressure 4. Low, dull backache 5. Cramps that feel like a period 6. Cramps with or without diarrhea If you notice any of the above symptoms, contact our office at [phone] and ask to speak with anurse. After hours, you can call doctors registry at [phone] OR call [facility] at [phone] ask to have the doctor venereal disease control head paged. If you consider this an emergency, dial or go to your nearest emergency department. NEED HELP? Are you dealing with a violent or abusive relationship? Are you a victim of rape or sexual assult? Call [facility] ([place]) 24 hour Crisis Hotline: 527.800.3906 or 785-573-3428. MANUAL Your Guide to a Healthy manual is now on-line. Visit [email or web address] to download your free copy [facility] Telephone encounter Note * Telephone Encounter - Zahra Muniz MD - 04/23/2025 11:47 AM EDT Order signed [facility]07-24-2025 Miscellaneous Notes* Telephone Encounter - Zahra Muniz MD - 04/23/2025 11:47 AM EDT Order signed documented [facility] encounterP[facility]07[facility]25 Telephone encounter Note * Telephone Encounter - Efren Nino MA - 04/21/2025 4:17 PM EDT FMLA has been completed and signed. Efren Nino MA [address]22-2025 Miscellaneous Notes* Telephone Encounter - Efren Nino MA - 04/21/2025 4:17 PM EDT FMLA has been completed and signed. Efren Nino MA * Telephone Encounter - Efren Nino MA - 04/21/2025 10:53 AM EDT 04/21/2025- received FMLA and Short term disability. Working on completing forms Efren Nino MA documented [facility]25 Telephone encounter Note * Telephone Encounter - Efren Nino MA - 04/21/2025 10:53 AM EDT 04/21/2025- received FMLA and Short term disability. Working on completing forms Efren Nino MA [facility]07-22-2025 Progress note* Quick Notes - Zahra Muniz MD - 04/21/2025 10:17 AM EDT S: Millie Watkins is a 29 year old female who presents at 06/14/2025, by Last Menstrual Period for a routine visit. Denies headache, visual changes, chest pain, shortness of breath, vaginal bleeding, leakage of fluid, or dysuria. Feeling well, no complaints. Good movement, No contractions O: See flow sheet Gen: No apparent distress Abd: Gravid, nontender Elevated fasting BG more than 50% of the time. PP sometimes once a day but can be explaind by meal.Improving with meal choices. Starting NPH 10 units qhs Starting NSTs weekly Next growth at 36 weeks ASSESSMENT/PLAN: 1. Supervision of high risk in third trimester ([facility]) - ICD9: V23.9, ICD10: O09.93 (primary diagnosis) - URINE OB DIP B/O 2. 32 weeks gestation of ([facility]) - ICD9: V22.2, ICD10: Z3A.32 - URINE OB DIP B/O 3. Diet controlled gestational diabetes mellitus (GDM) in third trimester ([facility]) - ICD9: 648.83, ICD10: O24.410 Now starting insulin - URINE OB DIP B/O 4. Obesity affecting in second trimester, unspecified obesity type ([facility]) - ICD9: 649.13, ICD10: O99.212 - URINE OB DIP B/O 5. History of smoking - ICD9: V15.82, ICD10: Z87.891 - URINE OB DIP B/O 6. Rubella non-immune status, antepartum ([facility]) - ICD9: 646.83, V15.83, ICD10: O09.899, Z28.39 MMR PP - URINE OB DIP B/O 7. Marginal insertion of umbilical cord affecting management of mother ([facility]) - ICD9: 656.73, ICD10:O43.199 Growth at 36 weeks - URINE OB DIP B/O 8. Gestational diabetes mellitus (GDM) requiring insulin ([facility]) - ICD9: 648.80, ICD10: O24.414 - NON-STRESS TEST - NON-STRESS TEST Zahra Muniz MD [facility]07-22-2025 Miscellaneous Notes* Quick Notes - Zahra Muniz MD - 04/21/2025 10:17 AM EDT S: Millie Watkins is a 29 year old female who presents at 06/14/2025, by Last Menstrual Period for a routine visit. Denies headache, visual changes, chest pain, shortness of breath, vaginal bleeding, leakage of fluid, or dysuria. Feeling well, no complaints. Good movement, No contractions O: See flow sheet Gen: No apparent distress Abd: Gravid, nontender Elevated fasting BG more than 50% of the time. PP sometimes once a day but can be explaind by meal.Improving with meal choices. Starting NPH 10 units qhs Starting NSTs weekly Next growth at 36 weeks ASSESSMENT/PLAN: 1. Supervision of high risk in third trimester ([facility]) - ICD9: V23.9, ICD10: O09.93 (primary diagnosis) - URINE OB DIP B/O 2. 32 weeks gestation of ([facility]) - ICD9: V22.2, ICD10: Z3A.32 - URINE OB DIP B/O 3. Diet controlled gestational diabetes mellitus (GDM) in third trimester ([facility]) - ICD9: 648.83, ICD10: O24.410 Now starting insulin - URINE OB DIP B/O 4. Obesity affecting in second trimester, unspecified obesity type ([facility]) - ICD9: 649.13, ICD10: O99.212 - URINE OB DIP B/O 5. History of smoking - ICD9: V15.82, ICD10: Z87.891 - URINE OB DIP B/O 6. Rubella non-immune status, antepartum ([facility]) - ICD9: 646.83, V15.83, ICD10: O09.899, Z28.39 MMR PP - URINE OB DIP B/O 7. Marginal insertion of umbilical cord affecting management of mother ([facility]) - ICD9: 656.73, ICD10:O43.199 Growth at 36 weeks - URINE OB DIP B/O 8. Gestational diabetes mellitus (GDM) requiring insulin ([facility]) - ICD9: 648.80, ICD10: O24.414 - NON-STRESS TEST - NON-STRESS TEST Zahra Muniz MD documented [facility] encounter[facility]07[facility]25 Telephone encounter Note * Telephone Encounter - Zahra Baez RN - 04/21/2025 10:07 AM EDT Forms printed and placed in [facility] mailbox. Zahra Baez RN [facility]07-22-2025 Miscellaneous Notes* Telephone Encounter - Zahra Baez RN - 04/21/2025 10:07 AM EDT Forms printed and placed in [facility] mailbox. Zahra Baez RN documented in this encounterP[facility]07-[facility]25 Instructions* Patient Instructions* Efren Nino MA - 04/21/2025 9:49 AM EDT SEQUENTIAL SCREENINGS The [facility] offers sequential screenings for women who are interested in screenings for chromosomal abnormalities and certain defects during a . The sequential screen combinesultrasound and blood tests to determine the risk of chromosomal abnormalities, including Down's Syndrome (Trisomy 21) and Trisomy 18, as well as open neural tube defects including spina bifida. Ultrasound examination is performed between 11 weeks and 13 weeks gestational age. Blood tests are drawn after the ultrasound and again later in the between 15 and 21 weeks gestational age. Please let your physician know if you are interested in this testing. It will require an appointment withour lot technician. This is not an ultrasound performed by a physician in our office during a routine visit. SIGNS AND SYMPTOMS OF LABOR 1. Contractions every 10 minutes or more often 2. Clear, pink, or brownish fluid (water) leaking from vagina 3. Feeling that baby is pushing down, pressure 4. Low, dull backache 5. Cramps that feel like a period 6. Cramps with or without diarrhea If you notice any of the above symptoms, contact our office at [phone] and ask to speak with anurse. After hours, you can call doctors registry at [phone] OR call [facility] at [phone] ask to have the doctor venereal disease control head paged. If you consider this an emergency, dial 6-8-8 or go to your nearest emergency department. NEED HELP? Are you dealing with a violent or abusive relationship? Are you a victim of rape or sexual assult? Call [facility] ([place]) 24 hour Crisis Hotline: 853.192.8612 or 374-648-0697. MANUAL Your Guide to a Healthy manual is now on-line. Visit [email or web address] to download your free copy documented in this encounter[facility]07-18-2025 Telephone encounter Note * Telephone Encounter - Minda Dela Cruz RN - 04/17/2025 9:10 AM EDT Please review patients blood sugar readings. Last seen 04/13, next appointment on 04/21. Minda Dela Cruz RN [facility]07-18-2025 Miscellaneous Notes* Telephone Encounter - Minda Dela Cruz RN - 04/17/2025 9:10 AM EDT Please review patients blood sugar readings. Last seen 04/13, next appointment on 04/21. Minda Dela Cruz RN * Telephone Encounter - Lali Aguiar RN - 04/16/2025 1:49 PM EDT 31w4d Next OB visit 04/21/25. Lali Aguiar RN documented in this encounterP[facility]07-[facility]-2025 Telephone encounter Note * Telephone Encounter - Lali Aguiar RN - 04/16/2025 1:49 PM EDT 31w4d Next OB visit 04/21/25. Lali Aguiar RN [facility]07-11-2025 Telephone encounter Note* Telephone Encounter - Zahra Baez RN - 04/10/2025 2:06 PM EDT Called and notified patient. Zahra Baez RN [facility]07-11-2025 Miscellaneous Notes* Telephone Encounter - Zahra Baez RN - 04/10/2025 2:06 PM EDT Called and notified patient. Zahra Baez RN * Telephone Encounter - Irene Mc APRN.CNM - 04/10/2025 1:15 PM EDT This is a normal result but will continue to monitor her. 0.25 or higher would be concerning duringpregnancy. * Telephone Encounter - Zahra Baez RN - 04/10/2025 10:47 AM EDT 30w5d Patient viewed 24 hour urine results on Mychart. She would like to know what the results mean. Please review. Zahra Baez RN documented in this encounterP[facility]07-11-2025 Telephone encounter Note * Telephone Encounter - Irene Mc APRN.CNM - 04/10/2025 1:15 PM EDT This is a normal result but will continue to monitor her. 0.25 or higher would be concerning duringpregnancy. [facility] Work Phone: 1(619) 481-326107-11-2025 Telephone encounter Note* Telephone Encounter - Zahra Baez RN - 04/10/2025 10:47 AM EDT 30w5d Patient viewed 24 hour urine results on Mychart. She would like to know what the results mean. Please review. Zahra Baez RN [facility]07-08-2025 Note Indication Evaluation of growth. Gestational diabetes - diet controlled Impression - Single, live, intrauterine . - presentation is cephalic. - The biometry is consistent with the assigned gestational dating. - The EFW is 1799 g, at the 81%. AC is at the 76%. - The amniotic fluid volume is normal amount with an MVP of 4.3 cm and an JOHN of 16 cm. - The placenta is anterior. - No malformations visualized on a limited survey as detailed below. Recommendations Growth in four weeks Maternal Assessment Height 163 cm Height (ft) 5 ft Height (in) 4 in Physical Exam Initial weight (lb) 194 lb Initial BMI 33.30 kg/m Maternal assessment other: 3 Para 0 Method Transabdominal ultrasound examination, Color Doppler examination. View: Suboptimal view: limited by maternal body habitus. Suboptimal view: limited by position Alexandre . Number of fetuses: 1 Dating LMP on: 09/07/2024 GA by LMP 30 w + 2 d VIRGIL by LMP: 06/14/2025 GA by prior assessment 30 w + 2 d VIRGIL by prior assessment: 06/14/2025 Ultrasound examination on: 04/07/2025 GA by U/S based upon: AC, BPD, Femur, HC GA by U/S 32 w + 1 d VIRGIL by U/S: 06/01/2025 Assigned: based on stated VIRGIL, selected on 01/28/2025 Assigned GA 30 w + 2 d Assigned VIRGIL: 06/14/2025 General Evaluation Cardiac activity present. FHR 141 bpm. movements: present. Presentation: cephalic Placenta: Placental site: anterior Umbilical cord: Cord vessels: 3 vessel cord Amniotic fluid: Amount of AF: normal amount. MVP 4.3 cm. JOHN 16.0 cm. Q1 4.3 cm, Q2 4.3 cm, Q3 3.5 cm, Q4 3.9 cm Growth Overview Exam date GA BPD (mm) HC (mm) AC (mm) FL (mm) HL (mm) EFW (g) 01/28/2025 20w 3d 50.4 81% 189 73% 172.1 91% 33.2 63% 32.9 75% 417 88% 04/07/2025 30w 2d 83.4 99% 302.7 91% 272.5 76% 59.5 82% 1799 81% Biometry Standard BPD 83.4 mm 33w 4d 99% Hadlock OFD 104.5 mm 30w 6d 76% Nicolaides HC 302.7 mm 32w 5d 91% Christian AC 272.5 mm 31w 2d 76% Hadlock Femur 59.5 mm 31w 0d 82% Christian EFW 1,799 g 31w 2d 81% Hadlock EFW (lb) 3 lb EFW (oz) 15 oz EFW by: Hadlock (HC-AC-FL) Extended Table Keeper 5.3 mm Extremities / Bony Struc FL / HC 0.20 Other Structures FHR 141 bpm Anatomy Lateral ventricles: normal Cavum septi pellucidi: normal Cerebellum: normal Cisterna magna: normal 4-chamber view: normal RVOT view: suboptimally visualized LVOT view: suboptimally visualized 3-vessel view: suboptimally visualized Heart / Thorax Situs: situs solitus (normal) Diaphragm: normal Stomach: normal Kidneys: normal Bladder: normal sex: male Wants to know sex: yes Performed By: Mae Olivares RDMS Read By: Kendra Bryant M.D.MATERNAL [id number] NoteHNO ID: [id number] Author: PARKER WATERMAN MA Service: ? Author Type: Ornamental Ironworker Helper Type: Progress Notes Filed: 04/12/2025 05:47 Note Text: Patient identified by name and date of . Millie Watkins presents today for a vaccination of Tdap. Patient denies an allergy to latex: yes Patient denies a severe (life-threatening) allergy to a previous dose of Tdap, DTP, DTaP, DT or Td vaccine. Yes Patient denies history of epilepsy or neurological problems: Yes Patient is afebrile and denies being moderately or severely ill: Yes Patient denies history of Guillain-Romulus Syndrome (a severe paralytic illness): Yes Tdap Adacel injection was given without incident. See immunizations for details of immunizations administered today. VIS sheet provided: Yes Provider Irene Mc APRN CNM was present in office at time of injection. Parker Waterman [facility]07-08-2025 History of Present illness Narrative* Parker Waterman MA - 04/07/2025 4:03 PM EDT Patient identified by name and date of . Millie Roland presents today for a vaccination of Tdap. Patient denies an allergy to latex: yes Patient denies a severe (life-threatening) allergy to a previous dose of Tdap, DTP, DTaP, DT or Td vaccine. Yes Patient denies history of epilepsy or neurological problems: Yes Patient is afebrile and denies being moderately or severely ill: Yes Patient denies history of Guillain-Romulus Syndrome (a severe paralytic illness): Yes Tdap Adacel injection was given without incident. See immunizations for details of immunizations administered today. VIS sheet provided: Yes Provider Irene Mc APRN CNM was present in office at time of injection. Parker Waterman MA documented in this [facility]07-[facility]25 Progress note* Quick Notes - Irene Mc APRN.CNM - 04/07/2025 3:59 PM EDT NIRALI-S: Millie Watkins is a 29 year old female who presents at 30w2d with VIRGIL: 06/14/2025, by Last Menstrual Period for a routine visit. Denies headache, visual changes,chest pain, shortness of breath, vaginal bleeding, leakage of fluid, or dysuria. Feeling well, no complaints. O: See flow sheet Gen: No apparent distress Abd: Gravid, nontender GDM, a few PP elevated ASSESSMENT/PLAN: 1. Supervision of high risk in second trimester -Continue PNV and ASA 2. 30 weeks gestation of 3. Obesity affecting in second trimester, unspecified obesity type -Pregravid 33, no testing 4. Rubella non-immune status, antepartum -Vaccination PP 5. Marginal insertion of umbilical cord affecting management of mother -Plan for growth US at 32 weeks 6. Diet controlled gestational diabetes mellitus GDM in third trimester -Overall good control,, nutrition visit scheduled. Reviewed BG log to send weekly via [employer] and bring to visits. -Growth US at 32 wk PTL precautions reviewed and when to call RTO in 2 weeks Irene Mc APRN.CNM [facility]07-08-2025 Miscellaneous Notes* Quick Notes - Irene Mc APRN.CNM - 04/07/2025 3:59 PM EDT NIRALI-S: Millie Watkins is a 29 year old female who presents at 30w2d with VIRGIL: 06/14/2025, by Last Menstrual Period for a routine visit. Denies headache, visual changes,chest pain, shortness of breath, vaginal bleeding, leakage of fluid, or dysuria. Feeling well, no complaints. O: See flow sheet Gen: No apparent distress Abd: Gravid, nontender GDM, a few PP elevated ASSESSMENT/PLAN: 1. Supervision of high risk in second trimester -Continue PNV and ASA 2. 30 weeks gestation of 3. Obesity affecting in second trimester, unspecified obesity type -Pregravid 33, no testing 4. Rubella non-immune status, antepartum -Vaccination PP 5. Marginal insertion of umbilical cord affecting management of mother -Plan for growth US at 32 weeks 6. Diet controlled gestational diabetes mellitus GDM in third trimester -Overall good control,, nutrition visit scheduled. Reviewed BG log to send weekly via [employer] and bring to visits. -Growth US at 32 wk PTL precautions reviewed and when to call RTO in 2 weeks Irene Mc APRN.CNM documented in this encounterPome[facility] Hospital07-08-2025 Instructions* Patient Instructions* Parker Waterman MA - 04/07/2025 3:47 PM EDT SEQUENTIAL SCREENINGS The [facility] offers sequential screenings for women who are interested in screenings for chromosomal abnormalities and certain defects during a . The sequential screen combinesultrasound and blood tests to determine the risk of chromosomal abnormalities, including Down's Syndrome (Trisomy 21) and Trisomy 18, as well as open neural tube defects including spina bifida. Ultrasound examination is performed between 11 weeks and 13 weeks gestational age. Blood tests are drawn after the ultrasound and again later in the between 15 and 21 weeks gestational age. Please let your physician know if you are interested in this testing. It will require an appointment withour lot technician. This is not an ultrasound performed by a physician in our office during a routine visit. SIGNS AND SYMPTOMS OF LABOR 1. Contractions every 10 minutes or more often 2. Clear, pink, or brownish fluid (water) leaking from vagina 3. Feeling that baby is pushing down, pressure 4. Low, dull backache 5. Cramps that feel like a period 6. Cramps with or without diarrhea If you notice any of the above symptoms, contact our office at [phone] and ask to speak with anurse. After hours, you can call doctors registry at [phone] OR call [facility] at [phone] ask to have the doctor venereal disease control head paged. If you consider this an emergency, dial 06-01- or go to your nearest emergency department. NEED HELP? Are you dealing with a violent or abusive relationship? Are you a victim of rape or sexual assult? Call [facility] ([place]) 24 hour Crisis Hotline: 592.638.4219 or 628-229-9035. MANUAL Your Guide to a Healthy manual is now on-line. Visit [email or web address] to download your free copy documented in this encounterPome[facility] Hospital07-02-2025 Telephone encounter Note * Telephone Encounter - Nicolette Bobo APRN.CNM - 04/01/2025 10:21 AM EDT Thank you! Nicolette Bobo APRN.CNM [facility]07-02-2025 Miscellaneous Notes* Telephone Encounter - Nicolette Bobo APRN.CNM - 04/01/2025 10:21 AM EDT Thank you! Nicolette Bobo APRN.CNM * Telephone Encounter - Damien Khan RD - 03/31/2025 11:20 AM EDT Nicolette I moved Millie to my schedule on Sunday for the nutrition portion of her Diabetes education. The RD in [place] is not comfortable with and diabetes/GDM. I moved her to my schedule. In the future you can fax the referral to [phone], have the pt call our office and we can schedule them [phone], or send a staff message or CCd the chart to us to notify us of the consult. Thank you. Damien Khan MS RD LD [place] documented in this encounterPomerene Hospital07-01-2025 Telephone encounter Note * Telephone Encounter - Damien Khan RD - 03/31/2025 11:20 AM EDT Nicolette I moved Millie to my schedule on Sunday for the nutrition portion of her Diabetes education. The RD in [place] is not comfortable with and diabetes/GDM. I moved her to my schedule. In the future you can fax the referral to [phone], have the pt call our office and we can schedule them [phone], or send a staff message or CCd the chart to us to notify us of the consult. Thank you. Damien Khan MS RD LD RE [facility] Work Phone: 1(563) 723-750207-01-2025 NoteHNO ID: [id number] Author: LIDIA PRITCHETT RN Service: ? Author Type: Registered Nurse Type: Progress Notes Filed: 03/31/2025 11:03 Note Text: DIABETES SELF-MANAGEMENT EDUCATION AND SUPPORT Location: [facility] Type of visit: Virtual (with video) individual -- I have communicated my name and active licensure. The patient's identity and physical location were verified at the time of this visit. Either the patient or their legal footwear sales representative has been informed of the risks and benefits of -- and alternatives to -- treatment through a remote evaluation and consents to proceed with the evaluation remotely. Types of DSMES: Initial/Comprehensive (add to or update ADA spreadsheet) PATIENT'S MAIN CONCERN TODAY: no specific concerns, not surprised with diagnosis, history of PCOS Support person present for education today: none Cognitive ability: Alert and oriented Motivation to learn: Interested Learning barriers identified by educator: none Method of instruction: written, verbal, and demonstration INTERVENTIONS/TOPICS COVERED: -Diabetes Pathophysiology: gestational diabetes basics -Monitoring: BG targets, Pt able to do a successful self-check of BG with no coaching, sharps disposal, testing frequency, and using a home glucose monitor -Healthy Eating: impact of carbs on BG, basic carb counting, foods with carbs, portion sizes, fiber, reading food labels, recommendation for 15 to 30 g carb for breakfast and daytime snacks, 45 to 60 g carb for lunch and dinner, 30 g for bedtime snack, include healthy source of protein with all meals and snacks, carb counting tools (books, Internet, smartphone apps), and healthy heart options, importance of adequate carb intake to prevent ketosis -Medications: briefly discussed insulin as first line medication therapy in gestational diabetes, patient was taking Metformin through first trimester (was taking for PCOS) but now discontinued -Physical Activity: benefits of exercise and types of exercise -Acute Complications: hypoglycemia s/sx/tx and hyperglycemia s/sx/tx, DIABETES ASSESSMENT: Referring Physician: Nicolette Bobo Previous Diabetes Education? No , has had nutritional counseling in the past for PCOS/insulin resistance What are you hoping to gain from this visit? A review of carb counting In your words, what is gestational diabetes? Insulin resistance in , elevated BG What concerns you about having gestational diabetes? Health of baby Diabetes History: Type of Diabetes: Gestational ( diabetes in ) How far along is your ? Weeks: 29 Does anyone in your family have diabetes? 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 never How often does someone help you read your pill bottles? never How often does someone have to help you take care of your diabetes? never Major stressors:asked/not answered How do you manage stress? asked/not answered Do any of the following things get in the way of managing your diabetes? No self-identified issues Health History: Do you use tobacco? No Do you use alcohol? No In the past 12 months have you had any: Hospital Admissions: Asked/not answered ER Visits: Asked/not answered Primary Care Visits: Asked/not answered What are your general feelings about you overall health? Good Medical Issues/Complications: reviewed below To whom are you reporting your blood sugar levels? High-Risk OB PAST MEDICAL HISTORY Diagnosis Date Asthma (HCC) Childhood asthma History of ectopic 10/31/2024 Migraine with aura, with intractable migraine, so stated, with status migrainosus occular migraines as a teenager PCOS (polycystic ovarian syndrome) Most recent A1C Lab Results Component Value Date HBA1C 5.2 11/17/2024 HBA1C 5.2 07/14/2023 HBA1C 5.6 02/22/2022 Physical Activity: Do you do a regular exercise? No, sedentary job, try to get up and walk around the house if sitting too long, more active on weekends Sleep: Do you get at least 7 hrs of sleep most nights? Yes but intermittent, wake up every 2 hours Current Outpatient Medications Medication Sig blood sugar diagnostic test strip Use as directed to check glucose levels up to seven times daily. Lancets Use as directed to check glucose levels up to seven times daily. alcohol swabs (ALCOHOL PREP PADS) Use as directed to check glucose levels up to seven times daily. famotidine (PEPCID) 20 mg tablet Take 1 tablet by mouth two times a day. aspirin, enteric coated (ECO (more content not included)...[facility]07-01-2025 History of Present illness Narrative* Lidia Pritchett RN - 03/31/2025 9:56 AM EDT DIABETES SELF-MANAGEMENT EDUCATION AND SUPPORT Location: [facility] Type of visit: Virtual (with video) individual -- I have communicated my name and active licensure. The patient's identity and physical location wereverified at the time of this visit. Either the patient or their legal footwear sales representative has been informed of the risks and benefits of -- and alternatives to -- treatment through a remote evaluation andconsents to proceed with the evaluation remotely. Types of DSMES: Initial/Comprehensive (add to or update ADA spreadsheet) PATIENT'S MAIN CONCERN TODAY: no specific concerns, not surprised with diagnosis, history of PCOS Support person present for education today: none Cognitive ability: Alert and oriented Motivation to learn: Interested Learning barriers identified by educator: none Method of instruction: written, verbal, and demonstration INTERVENTIONS/TOPICS COVERED: -Diabetes Pathophysiology: gestational diabetes basics -Monitoring: BG targets, Pt able to do a successful self-check of BG with no coaching, sharps disposal, testing frequency, and using a home glucose monitor -Healthy Eating: impact of carbs on BG, basic carb counting, foods with carbs, portion sizes, fiber, reading food labels, recommendation for 15 to 30 g carb for breakfast and daytime snacks, 45 to 60g carb for lunch and dinner, 30 g for bedtime snack, include healthy source of protein with all meals and snacks, carb counting tools (books, Internet, smartphone apps), and healthy heart options, importance of adequate carb intake to prevent ketosis -Medications: briefly discussed insulin as first line medication therapy in gestational diabetes, patient was taking Metformin through first trimester (was taking for PCOS) but now discontinued -Physical Activity: benefits of exercise and types of exercise -Acute Complications: hypoglycemia s/sx/tx and hyperglycemia s/sx/tx, DIABETES ASSESSMENT: Referring Physician: Nicolette Bobo Previous Diabetes Education? No , has had nutritional counseling in the past for PCOS/insulin resistance What are you hoping to gain from this visit? A review of carb counting In your words, what is gestational diabetes? Insulin resistance in , elevated BG What concerns you about having gestational diabetes? Health of baby Diabetes History: Type of Diabetes: Gestational ( diabetes in ) How far along is your ? Weeks: 29 Does anyone in your family have diabetes? 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 never How often does someone help you read your pill bottles? never How often does someone have to help you take care of your diabetes? never Major stressors:asked/not answered How do you manage stress? asked/not answered Do any of the following things get in the way of managing your diabetes? No self-identified issues Health History: Do you use tobacco? No Do you use alcohol? No In the past 12 months have you had any: Hospital Admissions: Asked/not answered ER Visits: Asked/not answered Primary Care Visits: Asked/not answered What are your general feelings about you overall health? Good Medical Issues/Complications: reviewed below To whom are you reporting your blood sugar levels? High-Risk OB PAST MEDICAL HISTORY Diagnosis Date Asthma (HCC) Childhood asthma History of ectopic 10/31/2024 Migraine with aura, with intractable migraine, so stated, with status migrainosus occular migraines as a teenager PCOS (polycystic ovarian syndrome) Most recent A1C Lab Results Component Value Date HBA1C 5.2 11/17/2024 HBA1C 5.2 07/14/2023 HBA1C 5.6 02/22/2022 Physical Activity: Do you do a regular exercise? No, sedentary job, try to get up and walk around the house if sittingtoo long, more active on weekends Sleep: Do you get at least 7 hrs of sleep most nights? Yes but intermittent, wake up every 2 hours Current Outpatient Medications Medication Sig blood sugar diagnostic test strip Use as directed to check glucose levels up to seven times daily. Lancets Use as directed to check glucose levels up to seven times daily. alcohol swabs (ALCOHOL PREP PADS) Use as directed to check glucose levels up to seven times daily. famotidine (PEPCID) 20 mg tablet Take 1 tablet by mouth two times a day. aspirin, enteric coated (ECOTRIN LOW STRENGTH) 81 mg EC tablet Take 1 tablet by mouth once daily. no115/iron/folic acid ( 19 ORAL) Take by mouth. No current facility-administered medications for this visit. Medications for Diabetes: Name of Medication Dose When taken How often missed none Injections Technique: Do you take insulin or a medication you inject for your diabetes? No Blood Sugar Monitoring: Do you have a blood sugar monitor? Yes; What kind of meter is it? Verio flex How often do you check? 4 times a day When you check? before breakfast and other one hour PP, was testing one hour after end of meal, will now change to . Do you log your blood sugars? Yes. Where do you throw away your lancets? sharps container Management of Low Blood Sugar: What has been your lowest blood sugar in the last month? 82 What are your symptoms of lows? [place] like she had a low one time prior to diagnosis but none since How do you treat lows? Ate a meal after above mentioned episode, felt better, BG not available Do you drive? yes Management of High Blood Sugar: What has been you highest blood sugar in the last month? 167 after breakfast What are your symptoms of highs? Other none How do you treat your highs? Now monitoring and carb counting Meal Planning: Are you currently following any meal plan? Carb counting and Low carb Who does the cooking in your house? Self and Spouse Who does the grocery shopping? Self and Spouse How often do you eat out? 0-1x/week How many meals do you eat per day? Three plus snacks Breakfast: 3 scrambled eggs, 3 turkey ferro, 2whole grain toast with cheese, Lunch: salads with NS vegetables, steak or chicken, feta cheese, corn, avocado, Dinner: pizza or same as lunch. Snacks: beef jerky, cheese balls or sticks, nuts, telugu yogurt with granola, dark chocolate. Likes fruit but eating with caution after diagnosis Which meals do you tend to skip? None Beverages: water, diet drinks, coffee, and unsweetened tea EDUCATION HANDOUTS: Healthy You: Diabetes and LEARNING RESPONSE: Diabetes pathophysiology: Demonstrated understanding/competency today or at previous visit Healthy eating: Demonstrated understanding/competency today or at previous visit Being active: Demonstrated understanding/competency today or at previous visit Taking medications: Demonstrated understanding/competency today or at previous visit Monitoring glucose: Demonstrated understanding/competency today or at previous visit Acute complications: Demonstrated understanding/competency today or at previous visit Chronic complications: Demonstrated understanding/competency today or at previous visit Healthy coping: Demonstrated understanding/competency today or at previous visit Diabetes distress and support: Demonstrated understanding/competency today or at previous visit PATIENT SELECTED THE FOLLOWING GOALS: -Healthy eating goal: follow a meal plan 4: I'm ready to start now -Monitoring goal: start timer for after meal BG check at start of meal 4: I'm ready to start now POSSIBLE FUTURE TOPICS: 1. The following topics were not assessed due to time limitations, but should be assessed at the next visit: all areas were assessed today or within the last 12 months. 2. The following topics should be taught or reinforced at the next visit: N/A. DIABETES EDUCATION PLAN: Education completed and annual diabetes education follow-up visit recommended Time Spent (Minutes): 45 This visit note will be communicated to the healthcare provider via access to shared medical record. SIGNATURE: Lidia Pritchett RN PATIENT NAME: Millie Watkins DATE: March 31, 2025 TIME: 9:56 AM PAGER: documented in this encounterPomerene Hospital06-27-2025 Telephone encounter Note * Telephone Encounter - Minda Dela Cruz RN - 03/27/2025 3:58 PM EDT Patient notified of results, verbalizes understanding of instructions. Appointments scheduled. Minda Dela Cruz RN [facility]06-27-2025 Miscellaneous Notes* Telephone Encounter - Minda Dela Cruz RN - 03/27/2025 3:58 PM EDT Patient notified of results, verbalizes understanding of instructions. Appointments scheduled. Minda Dela Cruz RN * Telephone Encounter - Nicolette Bobo APRN.CNM - 03/27/2025 3:22 PM EDT Yes, first available growth US is fine! Thank you. Nicolette Bobo APRN.CNM * Telephone Encounter - Minda Dela Cruz RN - 03/27/2025 3:03 PM EDT Please file pended orders. First available growth ultrasound appointment is not until 04/07, ok to wait until then-she would be 30 weeks. She already has growth scheduled at 32 weeks for marginal cord insertion. Minda Dela Cruz RN * Telephone Encounter - Minda Dela Cruz RN - 03/27/2025 3:01 PM EDT Images from the original note were not included. Nicolette Bobo APRN.CNM [facility] Please notify patient that 3 hour glucose tolerance test came back abnormal. Please order supplies as well as set up appointment with title clerk. She will need growth ultrasound scheduled el. Order placed. Nicolette Bobo APRN.CNM documented in [facility] encounterP[facility]06-[facility]25 Telephone encounter Note * Telephone Encounter - Nicolette Bobo APRN.CNM - 03/27/2025 3:22 PM EDT Yes, first available growth US is fine! Thank you. Nicolette Bobo APRN.CNM [facility]06-27-2025 Telephone encounter Note* Telephone Encounter - Minda Dela Cruz RN - 03/27/2025 3:03 PM EDT Please file pended orders. First available growth ultrasound appointment is not until 04/07, ok to wait until then-she would be 30 weeks. She already has growth scheduled at 32 weeks for marginal cord insertion. Minda Dela Cruz RN [facility]06-27-2025 Telephone encounter Note* Telephone Encounter - Minda Dela Cruz RN - 03/27/2025 3:01 PM EDT Images from the original note were not included. Nicolette Bobo APRN.CNM [facility]-Belt Knife Feeder Pool Please notify patient that 3 hour glucose tolerance test came back abnormal. Please order supplies as well as set up appointment with title clerk. She will need growth ultrasound scheduled el. Order placed. Nicolette Bobo APRN.CNM [facility]06-26-2025 Telephone encounter Note* Telephone Encounter - Zahra Baez RN - 03/26/2025 12:27 PM EDT Patient called. She viewed her CMP and anemia reflex panel. Concerned that there are several low values. Asking if there is need to be concerned. Zahra Baez RN [facility]06-26-2025 Miscellaneous Notes* Telephone Encounter - Zahra Baez RN - 03/26/2025 12:27 PM EDT Patient called. She viewed her CMP and anemia reflex panel. Concerned that there are several low values. Asking if there is need to be concerned. Zahra Baez RN * Telephone Encounter - Nicolette Bobo APRN.CNM - 03/26/2025 11:35 AM EDT Elevated 1 hour glucose screening. Order for fasting 3 hour GTT placed. Patient to complete prior to next visit if possible. * Telephone Encounter - Tamiko Hodge RN - 03/26/2025 10:43 AM EDT Please see Pt's labs from 03/25/25 and address in NIRALI absence. See Pt's [employer] message-asking about results. Tamiko Hodge RN documented in this encounterPomerene Hospital06-26-2025 Telephone encounter Note * Telephone Encounter - Nicolette Bobo APRN.CNM - 03/26/2025 11:35 AM EDT Elevated 1 hour glucose screening. Order for fasting 3 hour GTT placed. Patient to complete prior to next visit if possible. [facility] Telephone encounter Note* Telephone Encounter - Tamiko Hodge RN - 03/26/2025 10:43 AM EDT Please see Pt's labs from 03/25/25 and address in NIRALI absence. See Pt's [employer] message-asking about results. Tamiko Hodge, RN [facility]06-25-2025 Progress note* Quick Notes - Merry White MD - 03/25/2025 8:49 AM EDT RR- VB No. LOF No. CTXS No. Movement: present. Other c/o: No. Medication list reviewed. SENSITIVE EXAM: Sensitive exam not performed. Physical Exam See Flow Sheet Abd: soft, nontender, gravid Ext: edema: 1+ A/P 28w3d Estimated Date of Delivery: 06/14/25 Assessment & Plan 28 weeks gestation of (HCC) Obesity affecting in second trimester, unspecified obesity type (HCC) Need for vaccination Supervision of other high risk pregnancies, third trimester ([facility]) counseled on wt gain f/u in 2 weeks 28 week labs today plan worksheet given did virtual classes, info on in person given plans d/w her contraception after delivery considering tdap, ask next visit d/w her peds choices Merry White M.D. [facility]06-25-2025 Miscellaneous Notes* Quick Notes - Merry White MD - 03/25/2025 8:49 AM EDT RR- VB No. LOF No. CTXS No. Movement: present. Other c/o: No. Medication list reviewed. SENSITIVE EXAM: Sensitive exam not performed. Physical Exam See Flow Sheet Abd: soft, nontender, gravid Ext: edema: 1+ A/P 28w3d Estimated Date of Delivery: 06/14/25 Assessment & Plan 28 weeks gestation of (HCC) Obesity affecting in second trimester, unspecified obesity type (HCC) Need for vaccination Supervision of other high risk pregnancies, third trimester ([facility]) counseled on wt gain f/u in 2 weeks 28 week labs today plan worksheet given did virtual classes, info on in person given plans d/w her contraception after delivery considering tdap, ask next visit d/w her peds choices Merry White M.D. documented in this encounterPomerene Hospital06-25-2025 Instructions* Patient Instructions* Elli Boss LPN - 03/25/2025 8:18 AM EDT SEQUENTIAL SCREENINGS [facility] offers sequential screenings for women who are interested in screenings for chromosomal abnormalities and certain defects during a . The sequential screen combinesultrasound and blood tests to determine the risk of chromosomal abnormalities, including Down's Syndrome (Trisomy 21) and Trisomy 18, as well as open neural tube defects including spina bifida. Ultrasound examination is performed between 11 weeks and 13 weeks gestational age. Blood tests are drawn after the ultrasound and again later in the between 15 and 21 weeks gestational age. Please let your physician know if you are interested in this testing. It will require an appointment withour lot technician. This is not an ultrasound performed by a physician in our office during a routine visit. SIGNS AND SYMPTOMS OF LABOR 1. Contractions every 10 minutes or more often 2. Clear, pink, or brownish fluid (water) leaking from vagina 3. Feeling that baby is pushing down, pressure 4. Low, dull backache 5. Cramps that feel like a period 6. Cramps with or without diarrhea If you notice any of the above symptoms, contact our office at [phone] and ask to speak with anurse. After hours, you can call doctors registry at [phone] OR call [facility] at [phone] ask to have the doctor venereal disease control head paged. If you consider this an emergency, dial 6 or go to your nearest emergency department. NEED HELP? Are you dealing with a violent or abusive relationship? Are you a victim of rape or sexual assult? Call [facility] ([place]) 24 hour Crisis Hotline: 162.404.8128 or 426-200-3859. MANUAL Your Guide to a Healthy manual is now on-line. Visit [email or web address] to download your free copy documented in this encounterPomerene Hospital06-23-2025 Progress note* Quick Notes - Irene Mc APRN.CNM - 03/23/2025 8:36 AM EDT NIRALI-S: Millie Watkins is a 29 year old female who presents at 27w3d with VIRGIL: 06/14/2025, by Last Menstrual Period for a routine visit. Denies headache, visual changes, chest pain, shortness of breath, vaginal bleeding, leakage of fluid, or dysuria. Feeling well, no complaints. O: See flow sheet Gen: No apparent distress Abd: Gravid, nontender Heart: RRR, no murmur Lungs: CTA bilaterally Ext: no edema, +2/4 bilateral patellar, no clonus Initial BP 130/70 upon arrival TruBP:117/79 ASSESSMENT/PLAN: 1. Supervision of high risk in second trimester - 1 hour GCT, CBC, and RPR today - O Positive - TDAP declines - LARC form reviewed and signed. Patient declines - Depression screen negative - Opioid screen negative - plan form discussed and given to patient. 2. 27 weeks gestation of 3. Obesity affecting in second trimester, unspecified obesity type -Pregravid 33 4. Dizziness - COMPREHENSIVE METABOLIC PANEL - URIC ACID - COMPLETE BLOOD COUNT AND DIFFERENTIAL - PROTEIN / CREATININE RATIO 5. Marginal insertion of umbilical cord affecting management of mother -Plan for growth US at 32 weeks 6. Rubella non-immune status, antepartum -Vaccination PP PTL precautions reviewed and when to call RTO in 2 weeks Irene Mc APRN.CNM [facility]06-23-2025 Miscellaneous Notes* Quick Notes - Irene Mc APRN.CNM - 03/23/2025 8:36 AM EDT NIRALI-S: Millie Watkins is a 29 year old female who presents at 27w3d with VIRGIL: 06/14/2025, by Last Menstrual Period for a routine visit. Denies headache, visual changes, chest pain, shortness of breath, vaginal bleeding, leakage of fluid, or dysuria. Feeling well, no complaints. O: See flow sheet Gen: No apparent distress Abd: Gravid, nontender Heart: RRR, no murmur Lungs: CTA bilaterally Ext: no edema, +2/4 bilateral patellar, no clonus Initial BP 130/70 upon arrival TruBP:117/79 ASSESSMENT/PLAN: 1. Supervision of high risk in second trimester - 1 hour GCT, CBC, and RPR today - O Positive - TDAP declines - LARC form reviewed and signed. Patient declines - Depression screen negative - Opioid screen negative - plan form discussed and given to patient. 2. 27 weeks gestation of 3. Obesity affecting in second trimester, unspecified obesity type -Pregravid 33 4. Dizziness - COMPREHENSIVE METABOLIC PANEL - URIC ACID - COMPLETE BLOOD COUNT AND DIFFERENTIAL - PROTEIN / CREATININE RATIO 5. Marginal insertion of umbilical cord affecting management of mother -Plan for growth US at 32 weeks 6. Rubella non-immune status, antepartum -Vaccination PP PTL precautions reviewed and when to call RTO in 2 weeks Irene Mc APRN.CNM documented in this encounterPomerene Hospital06-18-2025 Instructions* Patient Instructions* Irene Mc APRN.CNM - 03/18/2025 2:56 PM EDT 2 tylenol and benadryl SIGNS AND SYMPTOMS OF LABOR 1. Contractions every 10 minutes or more often 2. Clear, pink, or brownish fluid (water) leaking from vagina 3. Feeling that baby is pushing down, pressure 4. Low, dull backache 5. Cramps that feel like a period 6. Cramps with or without diarrhea If you notice any of the above symptoms, contact our office at [phone] and ask to speak with anurse. After hours, you can call doctors registry at [phone] OR call [facility] at [phone] ask to have the doctor venereal disease control head paged. If you consider this an emergency, dial 9-1-1 or go to your nearest emergency department. NEED HELP? Are you dealing with a violent or abusive relationship? Are you a victim of rape or sexual assult? Call [facility] ([place]) 24 hour Crisis Hotline: 807.239.3166 or 004-548-5050. MANUAL Your Guide to a Healthy manual is now on-line. Visit [email or web address] to download your free copy documented in this encounterPomerene Hospital06-18-2025 Telephone encounter Note * Telephone Encounter - Lali Aguiar RN - 03/18/2025 2:37 PM EDT See 03/18/25 phone note. Patient coming in today. Lali Aguiar RN [facility]06-18-2025 Miscellaneous Notes* Telephone Encounter - Lali Aguiar RN - 03/18/2025 2:37 PM EDT See 03/18/25 phone note. Patient coming in today. Lali Aguiar RN documented in this encounterPome[facility] Hospital06-18-2025 Telephone encounter Note * Telephone Encounter - Lali Aguiar RN - 03/18/2025 2:06 PM EDT Patient notified and scheduled for today. Lali Aguiar RN [facility]06-18-2025 Miscellaneous Notes* Telephone Encounter - Lali Aguiar RN - 03/18/2025 2:06 PM EDT Patient notified and scheduled for today. Lali Aguiar RN * Telephone Encounter - Irene Mc APRN.CNM - 03/18/2025 1:33 PM EDT Please have patient come in at 3:30 or sooner if she can and I will fit her in. Thank you, Irene Mc APRN.CNM * Telephone Encounter - Lali Aguiar RN - 03/18/2025 12:24 PM EDT 27w3d Patient previously sent [employer] message on 03/16 regarding dizzy episode she had. The dizziness has subsided, but since then she has felt off. She has had a headache for two days and just feels like she is in a fog. No vision changes or RUQ pain. Checked her BP at pharmacy and it was elevated 130/90. No available openings this afternoon. Please advise. Lali Aguiar RN documented in this encounterPomerene Hospital06-18-2025 Telephone encounter Note * Telephone Encounter - Irene Mc APRN.CNM - 03/18/2025 1:33 PM EDT Please have patient come in at 3:30 or sooner if she can and I will fit her in. Thank you, Irene Mc APRN.CNM [facility] Work Phone: 1(527) 940-748806-18-2025 Telephone encounter Note* Telephone Encounter - Lali Aguiar RN - 03/18/2025 12:24 PM EDT 27w3d Patient previously sent [employer] message on 03/16 regarding dizzy episode she had. The dizziness has subsided, but since then she has felt off. She has had a headache for two days and just feels like she is in a fog. No vision changes or RUQ pain. Checked her BP at pharmacy and it was elevated 130/90. No available openings this afternoon. Please advise. Lali Aguiar RN [facility]05-28-2025 Progress note* Quick Notes - Marlene Jimenez APRN.PERFORMANCE TESTER - 02/25/2025 8:43 AM EDT EH - S: Millie is a 29 year old female who presents at 24w3d for a routine visit. Feeling movement. Denies headache, visual changes, chest pain, shortness of breath, vaginal bleeding, leakage of fluid, or dysuria. Feeling well, no complaints. O: See flow sheet Gen: No apparent distress Abd: Gravid, nontender, S>D, 31 lb TWG ASSESSMENT/PLAN: 1. Supervision of high risk in second trimester ([facility]) - ICD9: V23.9, ICD10: O09.92 (primary diagnosis) - Continue LDA and PNV 2. 24 weeks gestation of ([facility]) - ICD9: V22.2, ICD10: Z3A.24 - GTT, CBC, RPR next visit 3. Screening for diabetes mellitus - ICD9: V77.1, ICD10: Z13.1 4. Obesity affecting in second trimester, unspecified obesity type ([facility]) - ICD9: 649.13, ICD10: O99.212 - Pre BMI 33 5. Marginal insertion of umbilical cord affecting management of mother ([facility]) - ICD9: 656.73, ICD10:O43.199 - Growth ordered 6. Excessive weight gain in , second trimester ([facility]) - ICD9: 646.13, 783.1, ICD10: O26.02 - 31 lb TWG at 24 weeks - Recommend high protein, low sugar diet - Works from home but trying to improve activity level PTL precautions reviewed. RTO in 4 weeks or sooner as needed. Marlene Haury, CUT OFF SAWYER.PERFORMANCE TESTER [facility]05-28-2025 Miscellaneous Notes* Quick Notes - Marlene Jimenez APRN.CNP - 02/25/2025 8:43 AM EDT EH - S: Millie is a 29 year old female who presents at 24w3d for a routine visit. Feeling movement. Denies headache, visual changes, chest pain, shortness of breath, vaginal bleeding, leakage of fluid, or dysuria. Feeling well, no complaints. O: See flow sheet Gen: No apparent distress Abd: Gravid, nontender, S>D, 31 lb TWG ASSESSMENT/PLAN: 1. Supervision of high risk in second trimester ([facility]) - ICD9: V23.9, ICD10: O09.92 (primary diagnosis) - Continue LDA and PNV 2. 24 weeks gestation of ([facility]) - ICD9: V22.2, ICD10: Z3A.24 - GTT, CBC, RPR next visit 3. Screening for diabetes mellitus - ICD9: V77.1, ICD10: Z13.1 4. Obesity affecting in second trimester, unspecified obesity type ([facility]) - ICD9: 649.13, ICD10: O99.212 - Pre BMI 33 5. Marginal insertion of umbilical cord affecting management of mother ([facility]) - ICD9: 656.73, ICD10:O43.199 - Growth ordered 6. Excessive weight gain in , second trimester ([facility]) - ICD9: 646.13, 783.1, ICD10: O26.02 - 31 lb TWG at 24 weeks - Recommend high protein, low sugar diet - Works from home but trying to improve activity level PTL precautions reviewed. RTO in 4 weeks or sooner as needed. Marlene Jimenez APRN.EVE documented in this encounterPomerene Hospital05-28-2025 Instructions* Patient Instructions* Devika Peacock MA - 02/25/2025 8:37 AM EDT SEQUENTIAL SCREENINGS [facility] offers sequential screenings for women who are interested in screenings for chromosomal abnormalities and certain defects during a . The sequential screen combinesultrasound and blood tests to determine the risk of chromosomal abnormalities, including Down's Syndrome (Trisomy 21) and Trisomy 18, as well as open neural tube defects including spina bifida. Ultrasound examination is performed between 11 weeks and 13 weeks gestational age. Blood tests are drawn after the ultrasound and again later in the between 15 and 21 weeks gestational age. Please let your physician know if you are interested in this testing. It will require an appointment withour lot technician. This is not an ultrasound performed by a physician in our office during a routine visit. SIGNS AND SYMPTOMS OF LABOR 1. Contractions every 10 minutes or more often 2. Clear, pink, or brownish fluid (water) leaking from vagina 3. Feeling that baby is pushing down, pressure 4. Low, dull backache 5. Cramps that feel like a period 6. Cramps with or without diarrhea If you notice any of the above symptoms, contact our office at [phone] and ask to speak with anurse. After hours, you can call doctors registry at [phone] OR call [facility] at [phone] ask to have the doctor venereal disease control head paged. If you consider this an emergency, dial 6-8-7 or go to your nearest emergency department. NEED HELP? Are you dealing with a violent or abusive relationship? Are you a victim of rape or sexual assult? Call [facility] ([place]) 24 hour Crisis Hotline: 504.144.3456 or 063-285-9841. MANUAL Your Guide to a Healthy manual is now on-line. Visit [email or web address] to download your free copy documented in this encounterPomerene Hospital04-30-2025 NoteHNO ID: [id number] Author: MARLENE JIMENEZ APRN.PERFORMANCE TESTER Service: ? Author Type: Nurse Practitioner Type: Progress Notes Filed: 01/28/2025 09:15 Note Text: EH - S: Millie is a 29 year old female who presents at 20w3d for a routine visit. Starting to feeling movement. Denies headache, visual changes, chest pain, shortness of breath, vaginal bleeding, leakage of fluid, or dysuria. Feeling well, no complaints. O: See flow sheet Gen: No apparent distress Abd: Gravid, nontender, 20 lb TWG ASSESSMENT/PLAN: 1. Supervision of high risk in second trimester ([facility]) - ICD9: V23.9, ICD10: O09.92 (primary diagnosis) - Continue ASA and LDA 2. 20 weeks gestation of ([facility]) - ICD9: V22.2, ICD10: Z3A.20 - Anatomy ultrasound today, report pending 3. Obesity affecting in second trimester, unspecified obesity type ([facility]) - ICD9: 649.13, ICD10: O99.212 Pre BMI 33 4. Rubella non-immune status, antepartum ([facility]) - ICD9: 646.83, V15.83, ICD10: O09.899, Z28.39 - Plan for MMR 5. Marginal insertion of umbilical cord affecting management of mother ([facility]) - ICD9: 656.73, ICD10: O43.199 - Plan for growth at 32 weeks PTL precautions reviewed. RTO in 4 weeks or sooner as needed. Marlene Jimenez APRN.[facility]04-30-2025 History of Present illness Narrative* Marlene Jimenez APRN.EVE - 01/28/2025 8:28 AM EDT EH - S: Millie is a 29 year old female who presents at 20w3d for a routine visit. Starting to feeling movement. Denies headache, visual changes, chest pain, shortness of breath, vaginal bleeding, leakage of fluid, or dysuria. Feeling well, no complaints. O: See flow sheet Gen: No apparent distress Abd: Gravid, nontender, 20 lb TWG ASSESSMENT/PLAN: 1. Supervision of high risk in second trimester ([facility]) - ICD9: V23.9, ICD10: O09.92 (primary diagnosis) - Continue ASA and LDA 2. 20 weeks gestation of ([facility]) - ICD9: V22.2, ICD10: Z3A.20 - Anatomy ultrasound today, report pending 3. Obesity affecting in second trimester, unspecified obesity type (HCC) - ICD9: 649.13, ICD10: O99.212 Pre BMI 33 4. Rubella non-immune status, antepartum (HCC) - ICD9: 646.83, V15.83, ICD10: O09.899, Z28.39 - Plan for MMR 5. Marginal insertion of umbilical cord affecting management of mother (HCC) - ICD9: 656.73, ICD10:O43.199 - Plan for growth at 32 weeks PTL precautions reviewed. RTO in 4 weeks or sooner as needed. Marlene Jimenez APRN.EVE documented in this encounterPomerene Hospital04-30-2025 Instructions* Patient Instructions* Efren Nino MA - 01/28/2025 8:19 AM EDT SEQUENTIAL SCREENINGS [facility] offers sequential screenings for women who are interested in screenings for chromosomal abnormalities and certain defects during a . The sequential screen combinesultrasound and blood tests to determine the risk of chromosomal abnormalities, including Down's Syndrome (Trisomy 21) and Trisomy 18, as well as open neural tube defects including spina bifida. Ultrasound examination is performed between 11 weeks and 13 weeks gestational age. Blood tests are drawn after the ultrasound and again later in the between 15 and 21 weeks gestational age. Please let your physician know if you are interested in this testing. It will require an appointment withour lot technician. This is not an ultrasound performed by a physician in our office during a routine visit. SIGNS AND SYMPTOMS OF LABOR 1. Contractions every 10 minutes or more often 2. Clear, pink, or brownish fluid (water) leaking from vagina 3. Feeling that baby is pushing down, pressure 4. Low, dull backache 5. Cramps that feel like a period 6. Cramps with or without diarrhea If you notice any of the above symptoms, contact our office at [phone] and ask to speak with anurse. After hours, you can call [employer] registry at [phone] OR call [facility] at [phone] ask to have the doctor venereal disease control head paged. If you consider this an emergency, dial 9-1-3 or go to your nearest emergency department. NEED HELP? Are you dealing with a violent or abusive relationship? Are you a victim of rape or sexual assult? Call [facility] ([place]) 24 hour Crisis Hotline: 114.591.6626 or 776-708-3526. MANUAL Your Guide to a Healthy manual is now on-line. Visit [email or web address] to download your free copy documented in this encounterPomerene Hospital04-02-2025 Progress note* Quick Notes - Merry White MD - 12/31/2024 8:44 AM EDT RR- VB No. LOF No. CTXS No. Movement: absent. Other c/o: some constipation Medication list reviewed. SENSITIVE EXAM: Sensitive exam not performed. Physical Exam See Flow Sheet Abd: soft, nontender, gravid Ext: edema: no A/P 16w3d Estimated Date of Delivery: 06/14/25 Assessment & Plan 16 weeks gestation of ([facility]) Supervision of high risk in second trimester ([facility]) stop metformin cont. asa pnv f/u in 4 weeks or prn Merry White M.D. [facility]04-02-2025 Miscellaneous Notes* Quick Notes - Merry White MD - 12/31/2024 8:44 AM EDT RR- VB No. LOF No. CTXS No. Movement: absent. Other c/o: some constipation Medication list reviewed. SENSITIVE EXAM: Sensitive exam not performed. Physical Exam See Flow Sheet Abd: soft, nontender, gravid Ext: edema: no A/P 16w3d Estimated Date of Delivery: 06/14/25 Assessment & Plan 16 weeks gestation of ([facility]) Supervision of high risk in second trimester ([facility]) stop metformin cont. asa pnv f/u in 4 weeks or prn Merry White M.D. documented in this encounterPomerene Hospital04-02-2025 Instructions* Patient Instructions* Lima Anderson MA - 12/31/2024 8:38 AM EDT SEQUENTIAL SCREENINGS [facility] offers sequential screenings for women who are interested in screenings for chromosomal abnormalities and certain defects during a . The sequential screen combinesultrasound and blood tests to determine the risk of chromosomal abnormalities, including Down's Syndrome (Trisomy 21) and Trisomy 18, as well as open neural tube defects including spina bifida. Ultrasound examination is performed between 11 weeks and 13 weeks gestational age. Blood tests are drawn after the ultrasound and again later in the between 15 and 21 weeks gestational age. Please let your physician know if you are interested in this testing. It will require an appointment withour lot technician. This is not an ultrasound performed by a physician in our office during a routine visit. SIGNS AND SYMPTOMS OF LABOR 1. Contractions every 10 minutes or more often 2. Clear, pink, or brownish fluid (water) leaking from vagina 3. Feeling that baby is pushing down, pressure 4. Low, dull backache 5. Cramps that feel like a period 6. Cramps with or without diarrhea If you notice any of the above symptoms, contact our office at [phone] and ask to speak with anurse. After hours, you can call [facility] at [phone] OR call [facility] at [phone] ask to have the doctor venereal disease control head paged. If you consider this an emergency, dial 9-1-3 or go to your nearest emergency department. NEED HELP? Are you dealing with a violent or abusive relationship? Are you a victim of rape or sexual assult? Call [facility] ([facility] 24 hour Crisis Hotline: 665.273.9796 or 318-341-5028. MANUAL Your Guide to a Healthy manual is now on-line. Visit [email or web address] to download your free copy documented in this encounterPomerene Hospital03-05-2025 Progress note* Quick Notes - Nicolette Bobo APRN.CNM - 12/03/2024 8:42 AM EST S: Millie Dela Cruz is a 29 year old female who presents at 12 weeks gestation for a routine visit. Just completed first trimester anatomy US. Has already completed blood work for labs and aneuploidy screening. Continues to have heartburn. Occasional nausea without emesis. Denies headache, visual changes, chest pain, shortness of breath, vaginal bleeding, leakage of fluid, or dysuria. O: See flow sheet Gen: No apparent distress Abd: Gravid, nontender ASSESSMENT/PLAN: 1. Encounter for supervision of high risk in first trimester, antepartum 2. 12 weeks gestation of 3. Heartburn during - Pepcid 20 mg PO BID - Continue vitamin and ASA - RTO 4 weeks Nicolette Bobo APRN.CNM [facility]03-05-2025 Miscellaneous Notes* Quick Notes - Nicolette Bobo APRN.CNM - 12/03/2024 8:42 AM EST S: Millie Dela Cruz is a 29 year old female who presents at 12 weeks gestation for a routine visit. Just completed first trimester anatomy US. Has already completed blood work for labs and aneuploidy screening. Continues to have heartburn. Occasional nausea without emesis. Denies headache, visual changes, chest pain, shortness of breath, vaginal bleeding, leakage of fluid, or dysuria. O: See flow sheet Gen: No apparent distress Abd: Gravid, nontender ASSESSMENT/PLAN: 1. Encounter for supervision of high risk in first trimester, antepartum 2. 12 weeks gestation of 3. Heartburn during - Pepcid 20 mg PO BID - Continue vitamin and ASA - RTO 4 weeks Nicolette Bobo APRN.CNM documented in this encounterPomerene Hospital02-28-2025 History of Present illness Narrative* Nichole CHASE Vasquez - 11/28/2024 9:30 AM EST REPRODUCTIVE GENETIC COUNSELING INITIAL VISIT Millie Dela Cruz : 1995 Above identifiers confirmed by Laquita Chinchilla MS, [facility] Consultation requested by: Marlene Jimenez APRN.CNP Date of clinic visit: November 28, 2024 Coil Winder Strap offered/present: No - Senegalese per EMR Millie Dela Cruz is a 29 year old female referred by Marlene Jimenez APRN.CNP for genetic counseling to discuss her family medical history. Ms. Dela Cruz is seen via a virtual Distance Health visit today via [employer] platform per patient choice. The visit is conducted synchronously in real-time. The patient is unaccompanied. A genetic counseling assistant manager pt was present for the visit with the patient's consent. I have communicated my name and active licensure. The patient's identity and physical location wereverified at the time of this visit. Either the patient or their legal footwear sales representative has been informed of the risks and benefits of -- and alternatives to -- treatment through a remote evaluation andconsents to proceed with the evaluation remotely. PRESENTING PROBLEM: Ms. Dela Cruz is a 29 year old female referred to genetics to discuss her family medical history. Specifically, her has a personal history of Hirschsprung's Disease and has a colostomy. He has not had any genetic testing in regards to this history. Ms. Dela Cruz presents today to discuss this history and reproductive risks further. Of note, she has had a low risk NIPT ([id number]) in thus far. REPRODUCTIVE HISTORY: Currently : Yes / w5d (by LMP) LMP: 09/07/24 VIRGIL: 06/14/25 history: 1. 08/2020, SAB at 5w 2. 03/2024, ectopic, treated with methotrexate 3. Current Infertility as a couple: Yes - Tried for 5 years before 2022 Patient's infertility work-up: PCOS Partner's infertility work-up: No work-up Infertility therapies: None to date Parental Screens: [employer] Fundamental (14 condition) Panel: Pending through OB Hemoglobinopathies: No; Patient's MCV: 91.3 fL Caodaism Diseases: Not at increased risk Other: No Chromosomal analysis: Patient: No Partner: No Products of conception: No exposures: - vitamins or other folate supplementation: Yes - Prescription medicines: Yes - Metformin - OTC medicines, herbal medicines, other supplements: Yes - Folic acid, fish oil, Vitamin D, Vitamin B6, will start baby aspirin after 12 weeks gestation - Tobacco, alcohol, or illicit drugs: No - Maternal infections or fevers: No - Other known/suspected human teratogens: No Aneuploidy screening: yes (Date: 11/17/24, Result: Negative). - NIPT ([id number]): - Screen negative for Trisomy 21, Trisomy 18, Trisomy 13, and sex chromosome aneuploidies - Reported sex: male Ultrasounds: - Dating scan at 5w4d gestation by LMP (performed by Marlene Jimenez APRN.CNP): 6 weeks by scan. - Dating scan at 6 weeks gestation by LMP (performed by Dr. Gonzalez): 6 weeks by scan. - First trimester anatomy: scheduled 12/03/24 - anatomy scheduled 01/28/25 CVS: No Amniocentesis: No complications: - Maternal diabetes, hypertension, seizures, other illness: No - Vaginal bleeding, labor, other complications: No - Decreased movement: Too early SIGNIFICANT PAST MEDICAL/SURGICAL HISTORIES: MOB: - Pre-diabetic previously - PCOS - Ocular migraines FOB: (age 29) - Hirschsprung's disease - Had 24 surgeries between ages [age]; diagnosed at age 2 as full segment was patchy throughout; not identified sooner as he passed his first stool as a baby FAMILY HISTORY: A 3-generation pedigree was obtained for the patient and her partner and will be scanned into patient's EMR. Of note: - Genetic and/or Inherited Disease: No - Common Disorders: Yes - Ms. Dela Cruz reported she has PCOS and ocular migraines, her mother had HPV and precancerous polypsremoved, her paternal half-sister has eustachian tubes and GI concerns, and her paternal grandfather has diabetes. - Ms. Dela Cruz reported her 's father has hypertension or blood sugar concerns. - Defects: Yes - Ms. Dela Cruz's has a history of Hirschsprung's Disease. - Seizures: No - Recurrent Loss/Infertility: No - ID/DD/Autism: No - : No - Other: Yes - Ms. Dela Cruz reported her maternal grandmother was diagnosed with breast cancer in her 40's (unsureif genetic testing was completed), her paternal grandfather's brother was diagnosed with colon cancer in his 40's-50's, and this grandfather's other brother passed from lung cancer (lots of secondhand smoke exposure). - Ms. Dela Cruz reported her 's mother was diagnosed with colon cancer in her early 40's; no genetic testing was completed. - Patient's ethnicity: , Mixed - Partner's ethnicity: Mixed - Patient and/or partner did not report -Cambodian, , Mediterranean, Ashkenazi Caodaism and/or Finnish-Cades/Cajun ancestries unless noted above. - Patient and partner are NOT consanguineous The remainder of the known family history is negative for infertility, recurrent loss, stillbirth, unexplained infant , defects, malformation syndromes, chromosomal abnormalities, metabolic disorders, developmental delay, mental retardation, known or suspected genetic diseases,and consanguinity except as noted above and on the formal pedigree. GENETIC COUNSELING/DISCUSSION: Ms. Dela Cruz is a 29 year old female presenting to genetic counseling to discuss her family medical history as noted in the HPI. Hirschsprung's disease: Discussed Ms. Dela Cruz's 's history of Hirschsprung's disease, also known as congenital intestinal aganglionosis. This is a defect characterized by complete absence of neuronal ganglion cells from a portion of the intestinal tract. In 80% of individuals, the affected area is restricted to the rectosigmoid colon (short-segment disease), and 15-20% it extends proximal to the sigmoid colon (long-segment disease) and in about 5% it affects the entire large intestine (total colonic aganglionosis). It can occur as an isolated finding or as part of a underlying multisystem genetic disorder. Infants typically present within the first 2 months of life with symptoms of impaired intestinal motility including failure to pass meconium, constipation, emesis, abdominal pain or distention, andoccasionally diarrhea. The genetics of Hirschsprung's disease are complex and can include chromosomal abnormalities (including Down syndrome), single gene disorders, and nonsyndromic causes in which Hirschsprung's disease occurs without other anomalies. Nonsyndromic causes of Hirschsprung's disease have been associated with pathogenic variants in multiple genes. Many of these variants are associated with an autosomal dominant pattern of inheritance. Informed Ms. Dela Cruz of the availability of a general genetics evaluation and testing as indicated for her . If testing is completed and an underlying genetic etiology is identified, this wouldallow for accurate recurrence risk estimates and would inform if he is at risk for other health complications associated with that condition. Reviewed that without a known underlying genetic cause, accurate recurrence risks cannot be provided and monitoring for similar symptoms postnatally would clarify if children are at risk. Ms. Dela Cruz will discuss the option of genetic testing with her and will follow-up if he is interested. If this is not pursued, recommend informing pediatricians of this family history. Based on family history: Discussed the pending carrier screening for ACOG recommended conditions and the option of expanded carrier screening for 267 conditions. Reviewed autosomal recessive and X-linked inheritance as well as the benefits, risks, and limitations of the screening. Discussed the associated costs and turn around times. Reviewed available options if she and her partner are a carrier couple, including testing in , testing after , and IVF with preimplantation genetic testing in future pregnancies. Discussed the option of stepwise versus concurrent screening. Ms. Dela Cruz opted for stepwise expanded carrier screening through [employer] ([place] Plus panel). Reviewed Ms. Dela Cruz and her 's family history of early onset colon and breast cancer. Discussed cancer predisposition syndromes and autosomal dominant inheritance. Informed her of the availability of cancer genetic counseling services [facility] which are recommended for her [id number], her maternal grandmother, and her paternal great-uncle, and may be of interest for themselves or other relatives. Shared that surveillance recommendations would be altered with positive results and testing would become available for other family members. Reviewed the concept of uninformative negatives when unaffected family members are tested first. Ms. Dela Cruz indicated understanding and was encouraged to discuss this with family members. Discussed the multifactorial nature of other conditions reported in the family history. While predictive genetic testing is not available, risks are increased for individuals with a family history. Reviewed the importance of monitoring for symptoms and subsequent appropriate referrals. Ms. Dela Cruz indicated understanding. SUGGESTIONS/PLAN: 1. Ms. Dela Cruz opted for stepwise expanded carrier screening through [employer] ([place] Plus panel). [employer] was contacted to upgrade her panel and she will be notified of the results. 2. Ms. Dela Cruz will discuss the option of genetic testing for Hirschsprung's Disease with her and will follow-up if he is interested in meeting with medical genetics. If testing is not pursued, recommend informing pediatricians of this family history so features can be assessed for postnatally. 3. Follow-up as indicated by the above results. 4. Encouraged her to contact me with any questions/concerns/etc. Thank you for referring Ms. Dela Cruz. Please do not hesitate to call if you have questions/concerns. The patient was seen for a total of 30 minutes, greater than 50% of which was spent [id number] counseling. This plan is being carried out under the oversight of Dr. Lizzeth Ferrara. This note will also be sent to the referring provider via the electronic medical record. Laquita Chinchilla MS, ÁLVARO Licensed, Certified Genetic Counselor EPIC CC: Marlene Jimenez APRN.EVE - Referring Provider Dr. Lizzeth Ferrara (case technician) documented in this encounterPomerene Hospital02-28-2025 NoteHNO ID: [id number] Author: LAQUITA CHINCHILLA LGC Service: ? Author Type: Genetic Counselor Type: Progress Notes Filed: 01/02/2025 08:16 Note Text: REPRODUCTIVE GENETIC COUNSELING INITIAL VISIT Millie Dela Cruz : 1995 Above identifiers confirmed by Laquita Chinchilla MS, CGC Consultation requested by: Marlene Jimenez APRN.CNP Date of clinic visit: November 28, 2024 Coil Winder Strap offered/present: No - Senegalese per EMR Millie Dela Cruz is a 29 year old female referred by Marlene Jimenez APRN.EVE for genetic counseling to discuss her family medical history. Ms. Dela Cruz is seen via a virtual Distance Health visit today via [employer] platform per patient choice. The visit is conducted synchronously in real-time. The patient is unaccompanied. A genetic counseling assistant manager pt was present for the visit with the patient's consent. I have communicated my name and active licensure. The patient's identity and physical location were verified at the time of this visit. Either the patient or their legal footwear sales representative has been informed of the risks and benefits of -- and alternatives to -- treatment through a remote evaluation and consents to proceed with the evaluation remotely. PRESENTING PROBLEM: Ms. Dela Cruz is a 29 year old female referred to genetics to discuss her family medical history. Specifically, her has a personal history of Hirschsprung's Disease and has a colostomy. He has not had any genetic testing in regards to this history. Ms. Dela Cruz presents today to discuss this history and reproductive risks further. Of note, she has had a low risk NIPT ([id number]) in thus far. REPRODUCTIVE HISTORY: Currently : Yes / w5d (by LMP) LMP: 09/07/24 VIRGIL: 06/14/25 history: 1. 08/2020, SAB at 5w 2. 03/2024, ectopic, treated with methotrexate 3. Current Infertility as a couple: Yes - Tried for 5 years before 2022 Patient's infertility work-up: PCOS Partner's infertility work-up: No work-up Infertility therapies: None to date Parental Screens: [employer] Fundamental (14 condition) Panel: Pending through OB Hemoglobinopathies: No; Patient's MCV: 91.3 fL Caodaism Diseases: Not at increased risk Other: No Chromosomal analysis: Patient: No Partner: No Products of conception: No exposures: - vitamins or other folate supplementation: Yes - Prescription medicines: Yes - Metformin - OTC medicines, herbal medicines, other supplements: Yes - Folic acid, fish oil, Vitamin D, Vitamin B6, will start baby aspirin after 12 weeks gestation - Tobacco, alcohol, or illicit drugs: No - Maternal infections or fevers: No - Other known/suspected human teratogens: No Aneuploidy screening: yes (Date: 11/17/24, Result: Negative). - NIPT ([id number]): - Screen negative for Trisomy 21, Trisomy 18, Trisomy 13, and sex chromosome aneuploidies - Reported sex: male Ultrasounds: - Dating scan at 5w4d gestation by LMP (performed by Marlene Jimenez APRN.PERFORMANCE TESTER): 6 weeks by scan. - Dating scan at 6 weeks gestation by LMP (performed by Dr. Gonzalez): 6 weeks by scan. - First trimester anatomy: scheduled 12/03/24 - anatomy scheduled 01/28/25 CVS: No Amniocentesis: No complications: - Maternal diabetes, hypertension, seizures, other illness: No - Vaginal bleeding, labor, other complications: No - Decreased movement: Too early SIGNIFICANT PAST MEDICAL/SURGICAL HISTORIES: MOB: - Pre-diabetic previously - PCOS - Ocular migraines FOB: (age 29) - Hirschsprung's disease - Had 24 surgeries between ages [age]; diagnosed at age 2 as full segment was patchy throughout; not identified sooner as he passed his first stool as a baby FAMILY HISTORY: A 3-generation pedigree was obtained for the patient and her partner and will be scanned into patient's EMR. Of note: - Genetic and/or Inherited Disease: No - Common Disorders: Yes - Ms. Dela Cruz reported she has PCOS and ocular migraines, her mother had HPV and precancerous polyps removed, her paternal half-sister has eustachian tubes and GI concerns, and her paternal grandfather has diabetes. - Ms. Dela Cruz reported her 's father has hypertension or blood sugar concerns. - Defects: Yes - Ms. Dela Cruz's has a history of Hirschsprung's Disease. - Seizures: No - Recurrent Loss/Infertility: No - ID/DD/Autism: No - : No - Other: Yes - Ms. Dela Cruz reported her maternal grandmother was diagnosed with breast cancer in her 40's (unsure if genetic testing was completed), her paternal grandfather's brother was diagnosed with colon cancer in his 40's-50's, and this grandfather's other brother passed from lung cancer (lots of secondhand smoke exposure). - Ms. Dela Cruz reported her 's mother was diagnosed with colon cancer in her early 40's; no genetic testing was completed. - Patient's (more content not included)...[facility]02-24-2025 Telephone encounter Note* Telephone Encounter - Rickey Collins - 11/24/2024 2:20 PM EST Reached out to PT for more information on family history of Hirschsprung disease Explained to PT I was calling on behalf of the genetic counselor she is scheduled to meet with Laquita Fung. Explained that I was inquiring about her referral and the family history of Hirschsprung disease noted. Confirmed that PT's partner has been clinically diagnosed with this disease, but has not received any genetic testing. PT explained that there are no other family members they are aware of who also have this diease. PT explained that her partners father is adopted so there is limited family history. PT explained that her partner will be out of town during the visit and asked me to ask Laquita if there is any further info she needs or preemptive questions she could ask her partner to prepare for the visit. Explained to PT I would relay this to Laquita and reach out via [facility] if there are any. PT appreciated the assistance and had no further questions. Rickey Aguilar Genetic Counseling Scrap Drop Operator [facility]02-24-2025 Miscellaneous Notes* Telephone Encounter - Rickey Collins - 11/24/2024 2:20 PM EST Reached out to PT for more information on family history of Hirschsprung disease Explained to PT I was calling on behalf of the genetic counselor she is scheduled to meet with Laquita Fung. Explained that I was inquiring about her referral and the family history of Hirschsprung disease noted. Confirmed that PT's partner has been clinically diagnosed with this disease, but has not received any genetic testing. PT explained that there are no other family members they are aware of who also have this diease. PT explained that her partners father is adopted so there is limited family history. PT explained that her partner will be out of town during the visit and asked me to ask Laquita if there is any further info she needs or preemptive questions she could ask her partner to prepare for the visit. Explained to PT I would relay this to Laquita and reach out via [facility] if there are any. PT appreciated the assistance and had no further questions. Rickey Aguilar Genetic Counseling Scrap Drop Operator documented in this encounterPomerene Hospital02-03-2025 Telephone encounter Note * Telephone Encounter - Minda Dela Cruz RN - 11/03/2024 9:47 AM EST Patient 8w1d, last seen for New OB on 10/31. Minda Mae, RN [facility]02-03-2025 Miscellaneous Notes* Telephone Encounter - Minda Dela Cruz RN - 11/03/2024 9:47 AM EST Patient 8w1d, last seen for New OB on 10/31. Minda Dela Cruz RN documented in this encounterPomerene Hospital01-30-2025 NoteHNO ID: [id number] Author: MARLENE JIMENEZ APRN.PERFORMANCE TESTER Service: ? Author Type: Nurse Practitioner Type: Progress Notes Filed: 10/31/2024 11:39 Note Text: Engine Mechanic offered: Patient declines. INITIAL OB ASSESSMENT HPI: Millie is a 29 year old White Female here to establish Obstetrical Care. Patient's last menstrual period was 09/07/2024. from OB Dating Form. was planned Complaints: No OB History T0 L0 SAB0 IAB0 Ectopic1 Multiple0 Live Births0 Previous history: Prior : never History of 4th degree laceration: n/a History of shoulder dystocia: n/a History of Hypertensive disorders including pre-eclampsia or gestational hypertension: n/a History of gestational diabetes: n/a Patient's Risk Screening for delivery: Have you had a prior alexandre between 20w and 36w6d? No How many pregnancies have you had before? 2 Did you have a previous baby with a GBS Infection? No Please select all that apply for any prior : N/A MEDICAL/PSYCHOSOCIAL HISTORY: Severe Bleeding with delivery: No Thyroid Disease: NO Gestational Hypertension: n/a Preeclampsia: n/a Diabetes in : n/a No results found for: ABORHD No weight on file for this encounter. Last Pap: 12/14/2020 normal History of abnormal pap: no Prior treatment for cervical dysplasia: none. Last HPV: n/a History of STDs: None Partner History of STDs: None Did you have a partner with Herpes? No Tobacco use: Not currently E-Cigarette/Vaping Use: No Caffeine use: Yes Drug use: No Alcohol use: No Multivitamin with Folic acid: Yes Would refuse blood transfusion if medically necessary: No Social Needs: How often does this describe you? I don't have enough money to pay my bills: Never Within the past 12 months, have you worried that your food would run out before you had money to buy more? Never In the past 12 months, has lack of reliable transportation kept you from going to medical appointments or work, or from getting things needed for daily living? Never In the past 12 months, have you had any concerns about having a place to live, or about the condition or quality of your housing? Never Would you like more information on any of the following (please check all that apply)? Signed up on my chart Social History: Do you have any history of depression, anxiety, PTSD, or other mood problems? No Do you have a history of abuse or trauma that may impact your experience? No Are you currently employed? Yes Depression/Anxiety Screening: denies symptoms of depression. OB Depression and Anxiety Screening- This Encounter (since 10/30/2024) Over the past 2 weeks have you felt down, depressed, or hopeless? Negative Over the past two weeks, have you felt little interest or pleasure in doing things?? Negative Feeling nervous, anxious or on edge 1-Several days Not being able to stop or control worrying 1-Several days Anxiety Pre-Screening Total (If >/= 3 additional questions will be reviewed) 2 Genetic Screening: Partner present: No Patient verbalized knowledge of partner family health history: No Do you or your partner have any personal or family history of defects not previously discussed: No Do you have history of a complicated by anomaly, genetic condition, or demise: No Preeclampsia Risk Screening: Screening for prevention of preeclampsia: High risk factors: None Moderate risk ractors: Obesity (body mass index greater than 30) OB Risk Screening: Completed, no positive findings documented. 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 180 tablet 0 Magnesium Oxide 420 mg tab Take 1 tablet by mouth once daily. 100 tablet 3 pyridoxine, vitamin B6, (VITAMIN B-6) 50 mg tablet Take 1 tablet by mouth two times a day. 100 tablet 2 no115/iron/folic acid ( 19 ORAL) Take by mouth. No current facility-administered medications for this visit. Allergies As of Date: 10/31/2024 Allergen Noted Reaction AMOXICILLIN 01/09/2017 Rash ZYTHROMAX [AZITHROMYCIN] 01/09/2017 Rash Fully Assessed 10/24/2024 Does patient have penicillin allergy: Yes, plan for allergy testing. REVIEW OF SYSTEMS: GENERAL: Negative for: Fever or Chills HEENT: Negative for: Headache, Impaired Vision, Ringing in Ears + nosebleeds NECK: Negat (more content not included)...[facility] History of Present illness Narrative* Marlene Jimenez APRN.PERFORMANCE TESTER - 10/30/2024 2:59 PM EST Engine Mechanic offered: Patient declines. INITIAL OB ASSESSMENT HPI: Millie is a 29 year old White Female here to establish Obstetrical Care. Patient's last menstrual period was 09/07/2024. from OB Dating Form. was planned Complaints: No OB History T0 L0 SAB0 IAB0 Ectopic1 Multiple0 Live Births0 Previous history: Prior : never History of 4th degree laceration: n/a History of shoulder dystocia: n/a History of Hypertensive disorders including pre-eclampsia or gestational hypertension: n/a History of gestational diabetes: n/a Patient's Risk Screening for delivery: Have you had a prior alexandre between 20w and 36w6d? No How many pregnancies have you had before? 2 Did you have a previous baby with a GBS Infection? No Please select all that apply for any prior : N/A MEDICAL/PSYCHOSOCIAL HISTORY: Severe Bleeding with delivery: No Thyroid Disease: NO Gestational Hypertension: n/a Preeclampsia: n/a Diabetes in : n/a No results found for: ABORHD No weight on file for this encounter. Last Pap: 12/14/2020 normal History of abnormal pap: no Prior treatment for cervical dysplasia: none. Last HPV: n/a History of STDs: None Partner History of STDs: None Did you have a partner with Herpes? No Tobacco use: Not currently E-Cigarette/Vaping Use: No Caffeine use: Yes Drug use: No Alcohol use: No Multivitamin with Folic acid: Yes Would refuse blood transfusion if medically necessary: No Social Needs: How often does this describe you? I don't have enough money to pay my bills: Never Within the past 12 months, have you worried that your food would run out before you had money to buy more? Never In the past 12 months, has lack of reliable transportation kept you from going to medical appointments or work, or from getting things needed for daily living? Never In the past 12 months, have you had any concerns about having a place to live, or about the condition or quality of your housing? Never Would you like more information on any of the following (please check all that apply)? Signed up onmy chart Social History: Do you have any history of depression, anxiety, PTSD, or other mood problems? No Do you have a history of abuse or trauma that may impact your experience? No Are you currently employed? Yes Depression/Anxiety Screening: denies symptoms of depression. OB Depression and Anxiety Screening- This Encounter (since 10/30/2024) Over the past 2 weeks have you felt down, depressed, or hopeless? Negative Over the past two weeks, have you felt little interest or pleasure in doing things? Negative Feeling nervous, anxious or on edge 1-Several days Not being able to stop or control worrying 1-Several days Anxiety Pre-Screening Total (If >/= 3 additional questions will be reviewed) 2 Genetic Screening: Partner present: No Patient verbalized knowledge of partner family health history: No Do you or your partner have any personal or family history of defects not previously discussed: No Do you have history of a complicated by anomaly, genetic condition, or demise: No Preeclampsia Risk Screening: Screening for prevention of preeclampsia: High risk factors: None Moderate risk ractors: Obesity (body mass index greater than 30) OB Risk Screening: Completed, no positive findings documented. 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 180 tablet 0 Magnesium Oxide 420 mg tab Take 1 tablet by mouth once daily. 100 tablet 3 pyridoxine, vitamin B6, (VITAMIN B-6) 50 mg tablet Take 1 tablet by mouth two times a day. 100 tablet 2 no115/iron/folic acid ( 19 ORAL) Take by mouth. No current facility-administered medications for this visit. Allergies As of Date: 10/31/2024 Allergen Noted Reaction AMOXICILLIN 01/09/2017 Rash ZYTHROMAX [AZITHROMYCIN] 01/09/2017 Rash Fully Assessed 10/24/2024 Does patient have penicillin allergy: Yes, plan for allergy testing. REVIEW OF SYSTEMS: GENERAL: Negative for: Fever or Chills HEENT: Negative for: Headache, Impaired Vision, Ringing in Ears + nosebleeds NECK: Negative for: Swelling, Pain, Stiffness RESPIRATORY: Negative for: Cough, Shortness of breath, Wheezing GASTROINTESTINAL: Negative for: Constipation, Diarrhea, Blood in stool, Vomiting + heartburn MUSCULOSKELETAL: Negative for: Muscle or joint pain, stiffness, Joint swelling NEUROLOGIC/PSYCHIATRIC: Negative for: Weakness, Paralysis, Numbness, Tingling, Tremor, Depression, Memory loss + anxiety SKIN: Negative for: Rash, Itching GENITOURINARY: Negative for: vaginal itching, vaginal discharge, hematuria or dysuria SENSITIVE EXAM: The sensitive examination was discussed with the Patient or Patient's Authorized Ux Specialist. As applicable, any other physician, advance practice provider, medical student, or other health professional student that will be observing or involved in the sensitive examination for educational or training purposes was discussed with the Patient or Authorized Ux Specialist. The Patient or Authorized Ux Specialist has agreed to proceed with the sensitive examination. (Sensitive examination includes inspection and/or palpation of the breasts, pelvis, prostate and anorectal regions). PHYSICAL EXAM: BP 120/60 Ht 5' 4.173 (1.63m) Wt 194 lb (88.0kg) LMP 09/07/2024 BMI 33.12 kg/(m^2). GENERAL: pleasant in no apparent distress DERMATOLOGY: Normal, without lesions, non-icteric, and non-hirsute NECK: Supple, full range of motion, no adenopathy, and thyroid normal CHEST: Normal inspiratory effort BREAST: soft, non-tender, symmetric, no dominant mass, normal nipple-areolar complex, no lymphadenopathy, and no nipple discharge ABDOMEN: soft, non-tender, and no masses NEURO: alert and oriented x3,exam grossly non-focal PELVIS: External genitalia normal without lesions. Perineal body intact. No vaginal or cervical lesions. Cervix closed. Uterus 7 week size. No adnexal masses or tenderness. Clinical Pelvimetry: Pelvimetry clinically assessed as adequate Limited OB ultrasound exam: brief scan confirms cardiac activity ASSESSMENT: 29 year old at 7w5d wks gestational age PLAN: 1) Patient oriented to practice. Patient given new OB orientation folder. Discussed nutrition, folic acid supplementation, dietary guidelines, exercise, smoking, alcohol, caffeine, and drug use. Discussed gestational weight gain guidelines. Discussed routine OB labs including STD/HIV. Discussed how to access Your guide to a health and the Bog Worker. Discussed hemoglobin electrophoresis. Patient: Declines Reviewed midwifery and bilingual recruiter services that are available. 2) Screening: Hemoglobin A1C: ordered Baby Aspirin: The patient has been counseled about the potential benefits of low dose aspirin in and our recommendation that this be offered to all patients, regardless of whether they meet the high risk criteria specified above. She Accepts Aneuploidy Screening: Discussed aneuploidy screening, nuchal translucency/first trimester early anatomy ultrasound and NIPT. The risks/benefits and limitations of NIPT/aneuploidy screening were reviewed including the potential for false negative and false positive results. The availability of genetic counseling was reviewed. Information on aneuploidy screening was provided. The patient chooses toproceed with First trimester early anatomy ultrasound (12-13w6d) Myriad Carrier Screening: Discussed myriad carrier screening. We discussed the availability of professional-society guided carrier screening and reviewed the conditions screened and limitations of screening. The availability of genetic counseling was reviewed. Information on carrier screening was provided. The patient Accepts 3) Patient offered option of Virtual Visits. Patient unsure. May consider in future. ACTIVE PROBLEM LIST Encounter for Supervision of High Risk in First Trimester, Antepartum - 10/31/2024 Comment: Care Checklist Vaccines: [] Flu vaccine [] declined [] RSV vaccine 32 0/7 - 36 6 (Jun - Nov) [] declined [] COVID vaccine [] declined [] TDaP 27-36 [] declined First trimester: [x] Dating US [] 1st tri labs [x] Pap smear [x] Carrier screening [] declined [] NIPT screening - considering [] declined [x] First trimester anatomy scan [] declined [x] universal ASA ordered (start 12w-16w) [] declined [] M Power Consult [] not indicated [] declined Second trimester: [] Anatomy scan [] Mode of Delivery - [] Feeding - [] Pump ordered [] Diabetes screen [] CBC, RPR [] Behavioral Health Screening Third trimester (28-30 weeks): [] Consent [] Contraception [] Patient Assessment Coordinator [] TeamBirth handout Third trimester (36-40 weeks): [] GBS [] Presentation - [] Scheduled [] yes - Hibiclens, pre-op instructions, CBC, T&S ordered [] no [] H&P [] Preferences worksheet Family History of Genetic Disorder - 10/31/2024 Comment: October 31, 2024 FOB with Hirschsprung's disease Had 24 surgeries from age [age] Diagnosed at age 2. Marlene Jimenez APRN.EVE Obesity Affecting in First Trimester - 10/31/2024 Comment: Pre BMI 33 Heartburn During in First Trimester - 10/31/2024 Comment: October 31, 2024 Avoid fatty foods, Tums PRN Marlene Jimenez APRN.PERFORMANCE TESTER History of Smoking - 10/31/2024 Comment: October 31, 2024 Quit 10/02/24! Marlene Jimenez APRN.EVE History of Ectopic - 10/31/2024 Comment: October 31, 2024 Ultrasound confirms IUP Marlene Jimenez APRN.PERFORMANCE TESTER Follow up in 4 weeks or sooner prn. Plan for NT scan between 12w0d and 13w6d gestation. Marlene Jimenez APRN.PERFORMANCE TESTER [facility] Instructions* Patient Instructions* Marlene Jimenez APRN.CNP - 10/30/2024 2:59 PM EST Images from the original note were not included. Please select the following link to access the [facility] Your Guide to a Healthy . [email or web address] Please select the following link to access the [facility] Your Guide to a Healthy . [email or web address] Psychotherapy Services at [facility] Call Behavioral Health Access Line at [phone] to schedule Individual psychotherapy In-person or virtual Wait time for first evaluation may be 12 or more weeks. Wait list spots may be available. Due to the high volume of patients this option is recommended if you are looking for short term acute symptomcoping strategies. 5-590-1-YGVU6YOLO - [place] Maternal Mental Health Hotline If you are in suicidal crisis, please call or text 8-365-470-TALK ( ) or visit the National Suicide Prevention Lifeline website. mchb.[facility].gov If you are in crisis, call 911 or go to your nearest Emergency Department Here are some links for wonderful Providers here in the community and surrounding areas. Do not hesitate to contact their offices, many are offering virtual visits during this time. Psychotherapy Services outside of [facility] Support International Online Provider Directory https://AltheRx Pharmaceuticals.OrangeSoda/ - can assist in finding providers in your area that might be more extensive then the list below. [facility] - [place], [place] [address] [place] [address] [facility] [address] [place] [address] [facility] [address] [place] [address] [facility] [address] [place] [address] Johanna Brito MD [address] [place], [place] [phone] [facility] [address] [facility], [address] [place] [address] [facility] [address] [place] [address] [facility] Counseling Services [place] / [place] [phone]/ [phone] Hui Morales [address] [facility] [address] [facility] [phone] [facility] [place] / [place] [phone] Behavioral health services of [facility] [address] [place] [address]/ [place] [phone] Vadim Waterman, ESTEVAN, CLC [facility] Workshops, telehealth and at home visits. [phone] [facility] counseling [place] 20 locations [place], [place], [place], [place], [place], [place], [place], [facility], [place], [place], [place], [place], [place], [place], [facility], [place], [place] ,[facility], [place], [place],[facility], [facility], [place], [facility], [facility], [place] www.RPM Sustainable Technologies [phone] Psychotherapy resources outside of [facility] are listed below [facility] TrendU Psychotherapy Web: https://www.Neonode/ Support International Online Provider Directory https://Viewsy/ [facility] https://Rufus Buck Production/ Partners for Behavioral Health and Wellness Web: https://Proton Digital Systems/ Myngle for Effective Living Web: https://Virtustream.OrangeSoda/ LifeStance Web: https://Synata.OrangeSoda/location/[facility]/[place]/ [facility] Web: https://www.[facility].org/ The Centers Web: https://Headspaceio.org/ Recovery Resources Mental health and substance abuse help Web: https://www.Dataguises.org & RESOURCES Support International Direct peer support and connection to professional resources Non-Emergency Helpline Phone: / Text: [phone] Web: https://www..net/ Online Provider Directory: https://AltheRx Pharmaceuticals.OrangeSoda/ Online Support Meetings: https://www..net/get-help/awo-facaxv-uvkwfjg-meetings/ STEPHEN Baby and Guard Immigration Services Web: https://Flapshare/ Blue [employer] Expert information on medication use during and Text: [phone] Web: https://greenovation Biotech/ NATIONAL REGISTRY FOR PSYCHIATRIC MEDICATIONS Currently studying the safety of antidepressants, ADHD medications and atypical antipsychotics taken during TO PARTICIPATE CALL TOLL-FREE: Web: https://womensmentalhealth.org/research/pregnancyregistry/ Support Groups: [facility]- Follow on facebook Baby Bistro support group led by [facility] department [facility] - Support Group [facility].org The POEM support group [phone] Www.poemonline.org Follow on facebook - POEM gu chapter Online support meetings PSI https://www..net/get-help/idf-sbghff-oimriah-meetings/ [facility] mommy and me virtual support group 11:30-1pm Support for mothers and new babies and toddlers Naubinway childbirth education: Childbirth @cc.org or call [phone] CRISIS: CRISIS HOTLINE [phone], 911 or go to the nearest [facility] [phone] / [employer] [phone] https://www.[facility].org Crisis text line text the word HOME to 847065 [facility] [address] krishna [address] [facility] [address] www.MarginizetedWritten.OrangeSoda Latia Stokes clinical counseling [address] [address] www.bethbritton.OrangeSoda [phone] [facility] Alexia Jose JAVA SYBASE DEVELOPER ROD MILL OPERATOR-S [address] [facility] www.Wearable Security [phone]/ [place] [phone] They all offer virtual. All work with trauma Support groups Online support meetings PSI https://www..net/get-help/kje-siyftn-wrejcbq-meetings/ Here are the support groups they offer: Support of parents of 1 to 4 years old children POEM ( Outreach and Encouragement for Moms) offers free support for mothers experiencing depression, anxiety, and other mood and anxiety disorders. Masks are recommended but not required. No pre-registration required. Babies in arms welcome. meetings now take place on the and Sunday of each month Location: [facility] [address] [place] [address] Room 122 (library room) 7-8:00 p.m. When you enter the [facility] parking lot off of [address] the entrance door closest to our meeting room is on the front of the building toward the right. For those who are more comfortable with a virtual platform, POEM offers online support group options several days of the week. To register for an online group or to find out more about POEM, website at: https://mhaohio.org/get-help/lwjygzkw-oycjci-dwliya/poem-services/ offer a confidential helpline: private Facebook group is called PATTY Tang Here are the groups they offer: Traumatic childbirth resources: Http://pattch.org/ https://www.WebsmarieHybrid Electric Vehicle Technologies.OrangeSoda/ Name Location (s) Phone # (s) Services Website [facility]otherapy [address] [place], [place] - [phone]; [address] [phone] In-Person GROUPS INDIVIDUAL THERAPY MATERNAL- MENTAL HEALTH MEDICATION MANAGEMENT PLAY AND ART THERAPY TELETHERAPY https://www.Zhanzuo.OrangeSoda/services/ [facility] GU? [address] [place], [place] [address] ? [address], [address] [place], [place] [address] ? VERONICA [address] [place], [place] [address]? Grief Support Groups Individual Grief Counseling Spiritual Care Memorial Events https://[place].[facility].org/grief-services [facility] [address] [place], [place] [address]; ; Email: amee@[email or web address] Group Women's Mental Health; Couples Counseling; Trauma (EMDR); Stress Management; Mood and Anxiety Related Disorders- and much more https://www.VocalIQcounsPlandree/ LifeStance Numerous as they have contract providers: access website to find specific providers nearyou Counseling including CBT and EMDR as well as many more modalities; Medication Management; Telehealth and In-Person https://EventRadar/ Goodie Goodie App Behavioral Health and Wellness [address] [place] [address]; [phone] Personal, Family and Group Therapy; Psychological Testing and Diagnosis; Medication Management; Life and Career Coaching; Psychoanalysis; Literacy Testing; Yoga and Meditation https://Proton Digital Systems/ CadenceMD [facility] [address] [facility] [address], [place] [address] [address] ; [address] [facility], [address] [place] [address]; Office # for both sites: Individual and Couples Counseling https://www.Cofio Software.OrangeSoda/paymentinsurance.html OCD & Anxiety [facility] [address] [facility], [address], [place] [address]; Specialize in Cognitive-Behavioral Therapy (CBT) for the treatment of anxiety disorders across the lifespan. TELEHEALTH ONLY. https://ocdandanxietycentClickberry.OrangeSoda/faqs [facility] [address] [facility] [address]th [place], [address] [place] [address] [facility] [place], [address] [place] [address] [facility] [place], [address] [place] [address] [address] [place], [address], [address] [place] [address] [facility]. [place], [place], [id number] [place] [address] [place], [place], [id number] Transportation Services To minimize patient barriers, [facility] provides transportation services to patients who qualify. If you are unable to get to your appointment at any of our facilities, please let us know. Need help now? Stop by one of our walk-in clinics to establish behavioral health care. Counseling Indvidual, Group, Couples and Family Counseling and EMDR. Medication Management Case Management benefits applications housing assistance Substance abuse treatment Medication assisted treatment https://www.[facility].org/mental-health/ [facility] OFFICE AT [facility] [address] [place] [address] [facility] [address] [place] [address] [facility] OFFICE [address] [place] [address] TOW OFFICE (at [facility]) [address] [place] [address] [facility] SYRINGE EXCHANGE PROGRAM & HIV SCREENING [address] [place] [address] [place] S[place]ING[place] EXCHANGE PROGRAM [address] [place] [address] Behavioral Health Urgent Care: [facility] Sites Counseling Indvidual and Group Medication Management Case Management benefits applications housing assistance Substance abuse treatment Medication assisted treatment Employment Services/ Job Training https://theInnozersTidy Booksio.org/ Recovery Resources [address] [place], [place] [address]: P: [phone] [address] [facility], [address], [place] [address] P: [phone] Our services include: Addiction Mental Health Treatment Assessment Psychiatry Medical Care Employment Housing Drug and Alcohol Prevention HIV/AIDS Prevention https://www.recres.org/ [facility] [place] [address] [place] [address] [address] [place] [address] [address] [place], [place] [address] [place] [address] [place] [address] [place] [address] [place] [address] [address] [place] [address] [place] [address] [place] [address] TMS Therapy/ Counseling Psychocological Testing for ADHD Medication Management In-Person/ Telemedicine https://www.Szl.com/patients-depression Memory & Psychological services [address], [place] [address] Neuropsychological Testing For ADHD https://www.memoryandpsych.com/ The [facility] - Main Office [address] [place] [phone] [address] Providing cxqs-bb-cpdi and telehealth services. Adult Case Management Community Education and Prevention Employment Outpatient Treatment - Counseling & Psychotherapy Psychiatric Services [email or web address] [facility] [address] [address] [facility] [address] [place] [id number] Virtual Appointments! Now offering safe and convenient virtual client appointments to anyone in [place]! Individual Therapy Couples/Relationship Therapy Trauma/EMDR Therapy Art Therapy Play Therapy Center Sales And Service Associate Support: Parenting Skills, Parent Child Interaction Therapy, Parent Infant Interaction Therapy Meditation Dietitian/Lace Roller Operator Services Group Therapy Yoga [email or web address] [phone] Private Practice: Telehealth Only Specializes in EMDR for Trauma None documented in this encounterP[facility]01-27-[facility]25 Telephone encounter Note * Telephone Encounter - Lail Aguiar RN - 10/27/2024 9:44 AM EST Last weight mgmt with AG 06/19/24. Patient now early - NOB scheduled 10/31/24. Requested Prescriptions Pending Prescriptions Disp Refills metFORMIN (GLUCOPHAGE) 1,000 mg tablet 180 tablet 2 Sig: Take 1 tablet by mouth two times a day with meals. Lali Aguiar RN [facility]01-27-2025 Miscellaneous Notes* Telephone Encounter - Lali Aguiar RN - 10/27/2024 9:44 AM EST Last weight mgmt with AG 06/19/24. Patient now early - NOB scheduled 10/31/24. Requested Prescriptions Pending Prescriptions Disp Refills metFORMIN (GLUCOPHAGE) 1,000 mg tablet 180 tablet 2 Sig: Take 1 tablet by mouth two times a day with meals. Lali Aguiar RN documented in this encounterPomerene Hospital01-27-2025 NoteHNO ID: [id number] Author: CARROL GONZALEZ MD Service: ? 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 Encounter Diagnosis ICD-10-CM 1. Hx of ectopic Z87.59 Please see report under imaging tab. 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 Encounter Diagnosis ICD-10-CM 1. Hx of ectopic Z87.59 Please see report under imaging tab. Carrol Gonzalez MD October 27, 2024 8:48 AM documented in this encounterPomerene Hospital01-24-2025 NoteHNO ID: [id number] Author: GEORGE VIEIRA MD Service: ? Author Type: Physician Type: Progress Notes Filed: 10/24/2024 10:35 Note Text: Millie Dela Cruz is a 29 year old female who presents for problem visit. HPI: Patient presents after dating US. She has trouble sleeping and a little nausea but no vomiting. Also she has been having headaches. OB History T0 L0 SAB0 IAB0 Ectopic1 Multiple0 Live Births0 Belt Knife Feeder History LMP: 09/07/2024, Age at Menarche: Age at First : Age at Menopause: Belt Knife Feeder History Comments: Sexual Activity: Yes; Male Contraception: No contraception data on record PAST MEDICAL HISTORY Diagnosis Date Migraine with aura, with intractable migraine, so stated, with status migrainosus occular migraines as a teenager PCOS (polycystic ovarian syndrome) PAST SURGICAL HISTORY Procedure Laterality Date ECTOPIC - TREATMENT injection April 02, 2024 REFRACTIVE SURGERY OD (RIGHT EYE) 2019 FAMILY HISTORY Problem Relation Age of Onset other (polycystic ovary syndrome) Mother other (cervical dysplasia) Mother Obesity Mother Obesity Father Obesity Sister Obesity Brother Breast Cancer Maternal Grandmother Obesity Paternal Grandmother Social History Tobacco Use Smoking status: Every Day Types: Pipe Smokeless tobacco: Never Vaping Use Vaping status: Never Used Substance Use Topics Alcohol use: Yes Comment: occasional Drug use: Not Currently Current Outpatient Medications Medication Sig no115/iron/folic acid ( 19 ORAL) Take by mouth. metFORMIN (GLUCOPHAGE) 1,000 mg tablet Take 1 tablet by mouth two times a day with meals. No current facility-administered medications for this visit. Allergies As of Date: 10/24/2024 Allergen Noted Reaction AMOXICILLIN 01/09/2017 Rash ZYTHROMAX [AZITHROMYCIN] 01/09/2017 Rash Fully Assessed 10/24/2024 Allergies and current medication updated:Yes SENSITIVE EXAM: Sensitive exam not performed. EXAM: BP 116/72 Wt 190 lb (86.2kg) LMP 09/07/2024 GENERAL: pleasant, female in no apparent distress ASSESSMENT AND PLAN: Assessment AND Plan Early stage of Insomnia, unspecified type related nausea, antepartum Migraine without status migrainosus, not intractable, unspecified migraine type Prelim US read shows EDC is c/w LMP. Magnesium oxide AND vitamin B6 given. Follow up for first new OB visit as scheduled. Medical Decision Making: Problems: Low: Acute, uncomplicated illness or injury Moderate: 1+ chronic illnesses with change Data: Unique test result(s) reviewed: 3+ Risk: Moderate: Drug management Medical Decision Making Level: 4 - Moderate George Vieira [facility]01-24-2025 History of Present illness Narrative* George Vieira MD - 10/24/2024 8:35 AM EST Millie Dela Cruz is a 29 year old female who presents for problem visit. HPI: Patient presents after dating US. She has trouble sleeping and a little nausea but no vomiting. Also she has been having headaches. OB History T0 L0 SAB0 IAB0 Ectopic1 Multiple0 Live Births0 Belt Knife Feeder History LMP: 09/07/2024, Age at Menarche: Age at First : Age at Menopause: Belt Knife Feeder History Comments: Sexual Activity: Yes; Male Contraception: No contraception data on record PAST MEDICAL HISTORY Diagnosis Date Migraine with aura, with intractable migraine, so stated, with status migrainosus occular migraines as a teenager PCOS (polycystic ovarian syndrome) PAST SURGICAL HISTORY Procedure Laterality Date ECTOPIC - TREATMENT injection April 02, 2024 REFRACTIVE SURGERY OD (RIGHT EYE) 2019 FAMILY HISTORY Problem Relation Age of Onset other (polycystic ovary syndrome) Mother other (cervical dysplasia) Mother Obesity Mother Obesity Father Obesity Sister Obesity Brother Breast Cancer Maternal Grandmother Obesity Paternal Grandmother Social History Tobacco Use Smoking status: Every Day Types: Pipe Smokeless tobacco: Never Vaping Use Vaping status: Never Used Substance Use Topics Alcohol use: Yes Comment: occasional Drug use: Not Currently Current Outpatient Medications Medication Sig no115/iron/folic acid ( 19 ORAL) Take by mouth. metFORMIN (GLUCOPHAGE) 1,000 mg tablet Take 1 tablet by mouth two times a day with meals. No current facility-administered medications for this visit. Allergies As of Date: 10/24/2024 Allergen Noted Reaction AMOXICILLIN 01/09/2017 Rash ZYTHROMAX [AZITHROMYCIN] 01/09/2017 Rash Fully Assessed 10/24/2024 Allergies and current medication updated:Yes SENSITIVE EXAM: Sensitive exam not performed. EXAM: BP 116/72 Wt 190 lb (86.2kg) LMP 09/07/2024 GENERAL: pleasant, female in no apparent distress ASSESSMENT AND PLAN: Assessment & Plan Early stage of Insomnia, unspecified type related nausea, antepartum Migraine without status migrainosus, not intractable, unspecified migraine type Prelim US read shows EDC is c/w LMP. Magnesium oxide & vitamin B6 given. Follow up for first new OB visit as scheduled. Medical Decision Making: Problems: Low: Acute, uncomplicated illness or injury Moderate: 1+ chronic illnesses with change Data: Unique test result(s) reviewed: 3+ Risk: Moderate: Drug management Medical Decision Making Level: 4 - Moderate George Vieira MD documented in this encounterPomerene Hospital01-16-2025 History of Present illness Narrative* Tony MarleneDEE DEE.PERFORMANCE TESTER - 10/16/2024 11:47 AM EST Engine Mechanic offered: Patient declines. Millie Dela Cruz is a 29 year old female who presents for problem visit of spotting in early . HPI: Millie presents for spotting in early . She describes the spotting as light pink. Ithas now resolved. She denies itching or irritation. Her LMP was 09/07/2024. She has a history of ectopic March 2024. OB History T0 L0 SAB0 IAB0 Ectopic1 Multiple0 Live Births0 Belt Knife Feeder History LMP: 09/07/2024, Having periods Age at Menarche: Age at First : Age at Menopause: Belt Knife Feeder History Comments: Sexual Activity: Yes; Male Contraception: No contraception data on record PAST MEDICAL HISTORY Diagnosis Date Migraine with aura, with intractable migraine, so stated, with status migrainosus occular migraines as a teenager PCOS (polycystic ovarian syndrome) PAST SURGICAL HISTORY Procedure Laterality Date ECTOPIC - TREATMENT injection April 02, 2024 REFRACTIVE SURGERY OD (RIGHT EYE) 2019 FAMILY HISTORY Problem Relation Age of Onset other (polycystic ovary syndrome) Mother other (cervical dysplasia) Mother Obesity Mother Obesity Father Obesity Sister Obesity Brother Breast Cancer Maternal Grandmother Obesity Paternal Grandmother Social History Tobacco Use Smoking status: Every Day Types: Pipe Smokeless tobacco: Never Vaping Use Vaping status: Never Used Substance Use Topics Alcohol use: Yes Comment: occasional Drug use: Not Currently Current Outpatient Medications Medication Sig metFORMIN (GLUCOPHAGE) 1,000 mg tablet Take 1 tablet by mouth two times a day with meals. Phentermine HCl 37.5 mg tablet Take 1 tablet by mouth daily before breakfast for 90 days. (Patient not taking: Reported on 10/16/2024) drospirenone, contraceptive, (SLYND) 4 mg (28) tabet Take 1 tablet by mouth once daily. No current facility-administered medications for this visit. Allergies As of Date: 10/16/2024 Allergen Noted Reaction AMOXICILLIN 01/09/2017 Rash ZYTHROMAX [AZITHROMYCIN] 01/09/2017 Rash Fully Assessed 10/16/2024 REVIEW OF SYSTEMS Expanded ROS: LOOM TUNER: + light spotting Allergies and current medication updated:Yes SENSITIVE EXAM: The sensitive examination was discussed with the Patient or Patient's Authorized Ux Specialist. As applicable, any other physician, advance practice provider, medical student, or other health professional student that will be observing or involved in the sensitive examination for educational or training purposes was discussed with the Patient or Authorized Ux Specialist. The Patient or Authorized Ux Specialist has agreed to proceed with the sensitive examination. (Sensitive examination includes inspection and/or palpation of the breasts, pelvis, prostate and anorectal regions). EXAM: BP 118/70 Wt 188 lb (85.3kg) LMP 09/07/2024 GENERAL: pleasant, female in no apparent distress HEENT: Normocephalic, atraumatic, mucus membranes moist, and no lesions CHEST: Normal inspiratory effort PELVIC: external genitalia normal, normal Bartholin's glands, urethra, Rains's glands NEURO: alert and oriented x3,exam grossly non-focal EXTREMITIES: normal ASSESSMENT AND PLAN: 1. with uncertain dates in first trimester - ICD9: V22.1, ICD10: Z34.91 (primary diagnosis) - POCUS today shows intrauterine , yolk sac visualized, pole uncertain - IUP also confirmed by Jp Mireles - Reassured patient - Plan for early formal dating as scheduled - Continue serial HCG - Continue PNV 2. History of ectopic - ICD9: V13.29, ICD10: Z87.59 - Bleeding and pain precautions reviewed Marlene Jimenez APRN.CNP Medical Decision Making: Problems: Low: Acute, uncomplicated illness or injury Data: Unique test(s) ordered: 1 Risk: Minimal: Minimal risk from testing/treatment Medical Decision Making Level: 2 - Straightforward documented in this encounterPomerene Hospital01-16-2025 NoteHNO ID: [id number] Author: MARLENE JIMENEZ APRN.CNP Service: ? Author Type: Nurse Practitioner Type: Progress Notes Filed: 10/16/2024 12:15 Note Text: Engine Mechanic offered: Patient declines. Millie Dela Cruz is a 29 year old female who presents for problem visit of spotting in early . HPI: Millie presents for spotting in early . She describes the spotting as light pink. It has now resolved. She denies itching or irritation. Her LMP was 09/07/2024. She has a history of ectopic March 2024. OB History T0 L0 SAB0 IAB0 Ectopic1 Multiple0 Live Births0 Belt Knife Feeder History LMP: 09/07/2024, Having periods Age at Menarche: Age at First : Age at Menopause: Belt Knife Feeder History Comments: Sexual Activity: Yes; Male Contraception: No contraception data on record PAST MEDICAL HISTORY Diagnosis Date Migraine with aura, with intractable migraine, so stated, with status migrainosus occular migraines as a teenager PCOS (polycystic ovarian syndrome) PAST SURGICAL HISTORY Procedure Laterality Date ECTOPIC - TREATMENT injection April 02, 2024 REFRACTIVE SURGERY OD (RIGHT EYE) 2019 FAMILY HISTORY Problem Relation Age of Onset other (polycystic ovary syndrome) Mother other (cervical dysplasia) Mother Obesity Mother Obesity Father Obesity Sister Obesity Brother Breast Cancer Maternal Grandmother Obesity Paternal Grandmother Social History Tobacco Use Smoking status: Every Day Types: Pipe Smokeless tobacco: Never Vaping Use Vaping status: Never Used Substance Use Topics Alcohol use: Yes Comment: occasional Drug use: Not Currently Current Outpatient Medications Medication Sig metFORMIN (GLUCOPHAGE) 1,000 mg tablet Take 1 tablet by mouth two times a day with meals. Phentermine HCl 37.5 mg tablet Take 1 tablet by mouth daily before breakfast for 90 days. (Patient not taking: Reported on 10/16/2024) drospirenone, contraceptive, (SLYND) 4 mg (28) tabet Take 1 tablet by mouth once daily. No current facility-administered medications for this visit. Allergies As of Date: 10/16/2024 Allergen Noted Reaction AMOXICILLIN 01/09/2017 Rash ZYTHROMAX [AZITHROMYCIN] 01/09/2017 Rash Fully Assessed 10/16/2024 REVIEW OF SYSTEMS Expanded ROS: LOOM TUNER: + light spotting Allergies and current medication updated:Yes SENSITIVE EXAM: The sensitive examination was discussed with the Patient or Patient's Authorized Ux Specialist. As applicable, any other physician, advance practice provider, medical student, or other health professional student that will be observing or involved in the sensitive examination for educational or training purposes was discussed with the Patient or Authorized Ux Specialist. The Patient or Authorized Ux Specialist has agreed to proceed with the sensitive examination. (Sensitive examination includes inspection and/or palpation of the breasts, pelvis, prostate and anorectal regions). EXAM: BP 118/70 Wt 188 lb (85.3kg) LMP 09/07/2024 GENERAL: pleasant, female in no apparent distress HEENT: Normocephalic, atraumatic, mucus membranes moist, and no lesions CHEST: Normal inspiratory effort PELVIC: external genitalia normal, normal Bartholin's glands, urethra, Rains's glands NEURO: alert and oriented x3,exam grossly non-focal EXTREMITIES: normal ASSESSMENT AND PLAN: 1. with uncertain dates in first trimester - ICD9: V22.1, ICD10: Z34.91 (primary diagnosis) - POCUS today shows intrauterine , yolk sac visualized, pole uncertain - IUP also confirmed by Jp Mireles - Reassured patient - Plan for early formal dating as scheduled - Continue serial HCG - Continue PNV 2. History of ectopic - ICD9: V13.29, ICD10: Z87.59 - Bleeding and pain precautions reviewed Marlene Jimenez APRN.CNP Medical Decision Making: Problems: Low: Acute, uncomplicated illness or injury Data: Unique test(s) ordered: 1 Risk: Minimal: Minimal risk from testing/treatment Medical Decision Making Level: 2 - [facility] Telephone encounter Note* Telephone Encounter - Lali Aguiar RN - 10/15/2024 1:21 PM EST Patient notified and scheduled. Lali Aguiar RN [facility]01-15-2025 Miscellaneous Notes* Telephone Encounter - Lali Aguiar RN - 10/15/2024 1:21 PM EST Patient notified and scheduled. Lali Aguiar RN * Telephone Encounter - Marlene Jimenez APRN.CNP - 10/15/2024 12:02 PM EST Recommend serial HCG and early POCUS to confirm intrauterine due to history of ectopic. She can be added onto my 11:45 tomorrow to confirm IUP. Will likely be difficult to determine cardiacactivity, but should be able to rule out ectopic. Please review pain and bleeding precautions. Marlene Jimenez APRN.EVE * Telephone Encounter - Lali Aguiar RN - 10/15/2024 11:41 AM EST LMP 09/07/24 - 5w3d Patient called into office very anxious d/t anxious. No recent intercourse. Spotting and back pain stopped this morning now. No cramping, just having pelvic pressure. NOB scheduled 10/24/24. Hcg quants pending if needed. Please review her message and advise. Lali Aguiar RN documented in this encounterPomerene Hospital01-15-2025 Telephone encounter Note * Telephone Encounter - Marlene Jimenez APRN.CNP - 10/15/2024 12:02 PM EST Recommend serial HCG and early POCUS to confirm intrauterine due to history of ectopic. She can be added onto my 11:45 tomorrow to confirm IUP. Will likely be difficult to determine cardiacactivity, but should be able to rule out ectopic. Please review pain and bleeding precautions. Marlene Jimenez APRN.EVE [facility] Work Phone: [phone] Telephone encounter Note* Telephone Encounter - Lali Aguiar RN - 10/15/2024 11:41 AM EST LMP 09/07/24 - 5w3d Patient called into office very anxious d/t anxious. No recent intercourse. Spotting and back pain stopped this morning now. No cramping, just having pelvic pressure. NOB scheduled 10/24/24. Hcg quants pending if needed. Please review her message and advise. Lali Aguiar RN [facility]01-07-2025 Telephone encounter Note* Telephone Encounter - Zahra Baez RN - 10/07/2024 11:22 AM EST See Camperoohart message sent by patient today. Zahra Baez RN [facility]01-07-2025 Miscellaneous Notes* Telephone Encounter - Zahra Baez RN - 10/07/2024 11:22 AM EST See Camperoohart message sent by patient today. Zahra Baez RN * Telephone Encounter - George Vieira MD - 10/07/2024 11:11 AM EST Hcg levels increasing well. Dating US ordered. Please schedule when patient would be 6 weeks based on LMP. George Vieira MD' * Telephone Encounter - Lali Aguiar RN - 10/07/2024 9:39 AM EST Please review hcg lab results. hCG Quantitative, Blood (mIU/mL) Date Value 2024 385.3 10/03/2024 118.6 Lali Aguiar RN * Telephone Encounter - Tamiko Hodge RN - 10/02/2024 2:41 PM EST Pt notified. Pt will get drawn tomorrow (10/03/24) and Sunday (10/05/24). Please keep open for HCG results. Tamiko Hodge RN * Telephone Encounter - George Vieira MD - 10/02/2024 2:38 PM EST Hcg levels ordered. Please have venereal disease control head provider review. George Vieira MD * Telephone Encounter - Zahra Baez RN - 10/02/2024 2:21 PM EST LMP 09/07 Approximately 3w4d See notes below. Received a message that patient is requesting HCG levels due to history. Had an ectopic in March 2024. Patient did not have day 4 and 7 HCG level done after the methotrexate. Patient was advised by intake nurse to stop taking Phentermine. Do you want her to have HCG level x2 per patient request? Needs NOB scheduled. Orders pending. Zahra Baez RN * Telephone Encounter - Zahra Floyd RN - 10/02/2024 1:25 PM EST Call placed to patient to triage for new OB appt. Name and identified. LMP? 09/07/2024 Gestational age 3w4d When did you have a + test? today PNV? Not yet - picking one up today Any cats in the home? no If so, is patient aware of litter box precautions? Pelvic pain? no Miscarriage and ectopic precautions given Vaginal bleeding? no Patient given bleeding precautions. Nausea with or without vomiting? Nauseous with food aversions If patient is vomiting, how often and is she keeping down fluids? N/a Patient given precautions for vomiting Any medical history that can effect the ? Infertility, m/c x1, ectopic x1 @ 5w. PCOS takesmetformin, recent weight loss ands periods regular. Patient on phentermine, last dose today, will discontinue going forward. Office/provider patient wishes to establish care to? [facility] Patient aware to sign up for My Chart if she does not already have it, so she can receive the carecompanion messages. Will forward this encounter to the schedulers in this office. * Telephone Encounter - Zahra Floyd RN - 10/02/2024 1:15 PM EST ----- Message from Krista Lomas sent at 10/02/2024 12:54 PM EST ----- Regarding: New OB, Preexisitng Condition Patient has been identified by name and Date of : Yes Patient: Millie Dela Cruz Date of : 1995 Provider for this encounter : [facility] Reason for call: New OB first visits Was an appointment scheduled: No Reason for requesting visit (RFV/signs and symptoms/diagnosis) : New - LMP 09/07/24, Previous DX of PCOS, miscarriages, ectopic Person calling: self Return call to: self Call patient at: [phone] (cell), it is OK to leave message Payor: ANJALI / Plan: ANJALI OAP / Product Type: Open Access / Krista Paz documented in this encounterPomerene Hospital01-07-2025 Telephone encounter Note * Telephone Encounter - George Vieira MD - 10/07/2024 11:11 AM EST Hcg levels increasing well. Dating US ordered. Please schedule when patient would be 6 weeks based on LMP. George Vieira MD' [facility] Work Phone: 1(944) 708-627001-07-2025 Telephone encounter Note* Telephone Encounter - Lali Aguiar RN - 10/07/2024 9:39 AM EST Please review hcg lab results. hCG Quantitative, Blood (mIU/mL) Date Value 2024 385.3 10/03/2024 118.6 Lali Aguiar RN [facility]01-02-2025 Telephone encounter Note* Telephone Encounter - Tamiko Hodge RN - 10/02/2024 2:41 PM EST Pt notified. Pt will get drawn tomorrow (10/03/24) and Sunday (10/05/24). Please keep open for HCG results. Tamiko Hodge RN [facility]01-02-2025 Telephone encounter Note* Telephone Encounter - George Vieira MD - 10/02/2024 2:38 PM EST Hcg levels ordered. Please have venereal disease control head provider review. George Vieira MD [facility]01-02-2025 Telephone encounter Note* Telephone Encounter - Zahra Baez RN - 10/02/2024 2:21 PM EST LMP 09/07 Approximately 3w4d See notes below. Received a message that patient is requesting HCG levels due to history. Had an ectopic in March 2024. Patient did not have day 4 and 7 HCG level done after the methotrexate. Patient was advised by intake nurse to stop taking Phentermine. Do you want her to have HCG level x2 per patient request? Needs NOB scheduled. Orders pending. Zahra Baez RN [facility]01-02-2025 Telephone encounter Note* Telephone Encounter - Zahra Floyd RN - 10/02/2024 1:25 PM EST Call placed to patient to triage for new OB appt. Name and identified. LMP? 09/07/2024 Gestational age 3w4d When did you have a + test? today PNV? Not yet - picking one up today Any cats in the home? no If so, is patient aware of litter box precautions? Pelvic pain? no Miscarriage and ectopic precautions given Vaginal bleeding? no Patient given bleeding precautions. Nausea with or without vomiting? Nauseous with food aversions If patient is vomiting, how often and is she keeping down fluids? N/a Patient given precautions for vomiting Any medical history that can effect the ? Infertility, m/c x1, ectopic x1 @ 5w. PCOS takesmetformin, recent weight loss ands periods regular. Patient on phentermine, last dose today, will discontinue going forward. Office/provider patient wishes to establish care to? [facility] Patient aware to sign up for My Chart if she does not already have it, so she can receive the carecompanion messages. Will forward this encounter to the schedulers in this office. [facility] Telephone encounter Note* Telephone Encounter - Zahra Floyd RN - 10/02/2024 1:15 PM EST ----- Message from Krista Lomas sent at 10/02/2024 12:54 PM EST ----- Regarding: New OB, Preexisitng Condition Patient has been identified by name and Date of : Yes Patient: Millie Dela Cruz Date of : 1995 Provider for this encounter : [facility] Reason for call: New OB first visits Was an appointment scheduled: No Reason for requesting visit (RFV/signs and symptoms/diagnosis) : New - LMP 09/07/24, Previous DX of PCOS, miscarriages, ectopic Person calling: self Return call to: self Call patient at: [phone] (cell), it is OK to leave message Payor: ANJALI / Plan: ANJALI OAP / Product Type: Open Access / Krista Paz [facility]12-19-2024 NoteHNO ID: [id number] Author: VICKY RODGERS MD Service: ? Author Type: Physician Type: Progress Notes Filed: 09/18/2024 10:27 Note Text: Reviewed chart. Pt has met criteria to remain on medication. Will refill medication in AG absence. Pt [facility] History of Present illness Narrative* Vicky Rodgers MD - 09/18/2024 10:25 AM EST Reviewed chart. Pt has met criteria to remain on medication. Will refill medication in AG absence. Pt has follow up appt when AG returns * Minda Dela Cruz RN - 09/18/2024 10:09 AM EST Patient presents for weight, BP and pulse check for Phentermine refill. Patient denies any unwantedside effects. See vitals tab for results. Patient has next appointment for weight management scheduled with Leona Enriquez. Minda Dela Cruz RN documented in this encounterP[facility]12-19-[facility]24 NoteHNO ID: [id number] Author: MINDA DELA CRUZ RN Service: ? Author Type: Registered Nurse Type: Progress Notes Filed: 09/18/2024 10:27 Note Text: Patient presents for weight, BP and pulse check for Phentermine refill. Patient denies any unwanted side effects. See vitals tab for results. Patient has next appointment for weight management scheduled with Leona Enriquez. Minda Dela Cruz RN[facility] Instructions* Patient Instructions* Leona Enriquez APRN.PERFORMANCE TESTER - 06/19/2024 9:56 AM EDT The Role of Exercise in Weight Management No one can deny the psychological and physical benefits of exercise. Regular physical exercise aidsin stress reduction, blood sugar control, cholesterol reduction, and improved sleep. It s also beneficial for weight control. both aerobic and strength training is beneficial for weight control. The ACSM ([employer]) advises 200-300 minutes of moderate- intensity exercise to lose weight and sustain the loss. Aerobic exercise (walking, jogging, swimming, cycling) uses glucose (from glycogen) and triglycerides (from fat in storage) for energy. Strength or resistance training helps build muscle, which is more metabolic at rest than fat tissue. Both are beneficial to weight management. According to the 2018 Physical Activity Guidelines for Americans, Americans are advised to do a minimum of 30 minutes of physical activity most days of the week. This equates to 150 minutes of moderate activity or 75 minutes of vigorous exercise per week for general health. This should include bothaerobic and strength training exercises. However, without calorie restriction, this isn t enough for weight loss or weight maintenance in most people. Currently, 53 % of Americans over 18 do adequate aerobic exercise while only 23% get both aerobic and muscle-strengthening activity. Most [place] adults are still too sedentary. A sedentary lifestyle is associated with cardiovascular disease, type 2 diabetes, and certain types of cancer including endometrial, colon, and lung cancer. Which types of exercise aid in weight control? How much should I do? In addition to caloric restriction, both aerobic and strength training is beneficial for weight control. The ACSM ([employer]) advises 200-300 minutes of moderate-intensity exercise to lose weight and sustain the loss.Moderate-intensity exercises include brisk walking, jogging, using a rowing machine, or doing a 50-60 minute dance class. To ict business development manager the level of intensity you should aim for, think of it this way: a person should be able to carry a conversation but not be able to sing. HIIT (high-intensity interval training) is one method of exercise that may be beneficial to those who are trying to lose weight and are short on time. One way to do HIIT involves doing high-intensityexercise (such as sprinting) for 60 seconds followed by 60 seconds of low-intensity exercise (walking) or rest. Exercises are repeated 8 times with rest for a few minutes, then repeated until 30 minutes of exercise is completed. A meta-analysis of 39 studies with 671 participants showed that HIIT reduced total, abdominal, and visceral fat mass in both men and women aged 38.8 +/- 14.4. Running was more effective than cycling in lowering total and visceral fat mass while low-intensity exercise (like walking) also resulted inabdominal and visceral fat loss. The latter took more time. HIIT training is typically done a few days a week. Individuals are advised to choose less intense exercises in between HIIT training days. More muscle matters! One of the biggest reasons (no pun intended) that adults gain weight over time is due to muscle loss. A comparison study of various methods of exercise was performed with older subjects with obesity.Subjects got randomly assigned to a weight control program along with one of four programs: aerobictraining, resistance training, combined aerobic and resistance training, or a control group (no treatment). The initial outcome was the change in Physical Performance Test Scores from the start to 6 months after the study began, while secondary outcomes included changes in body composition, bone mineral density, and physical function. There were 141 total subjects that finished the study. Physical Performance Test score was higher in the combination group than in the aerobic and resistance groups. Bodyweight decreased in all exercise groups (9%) but not in the control group. Lean mass and bone density were maintained the most in the combination and resistance groups. Strength also increased in the resistance training and combination training groups. As muscle is more metabolic than fat, maintaining muscle mass is important to long-term weight control. It s important for individuals who have been sedentary to check with their doctors before embarkingon a new exercise program. While HIIT training may be appropriate for younger individuals and/or those without comorbidities like cardiovascular disease, it s important to find an exercise that s enjoyable. Physical activities could include: Multiple bouts of moderately paced walking a few times per day. Use of an elliptical or rowing machine or a water aerobics class A walking video to use at home Playing tennis or pickleball Trying a regular or stationary bike or a spin class Joining a kickboxing or Stephen class at a gym or rec center Resistance training may include: Use of stretch bands Multiple reps of small hand weights Use of nautilus machines A pilates class (in person or at home) documented in this encounterPomerene Hospital09-19-2024 History of Present illness Narrative* Leona Enriquez APRN.CNP - 06/19/2024 9:30 AM EDT Some documentation from previous visit of 11/08/2023 was copied and pasted, documentation has been reviewed and edited as necessary for today's visit. Patient Summary: Millie is a 28 year old Female who presents for follow-up evaluation of obesity/weight management to treat PCOS, elevated LDL level and prevent related co-morbidities. In our previous visits we have discussed lifestyle intervention including a nutrition recommendations and physical activity optimization. Her last office visit was 3 months ago. Assessment/plan from last visit: Ectopic treated with methotrexate 04/02/2024. States doing well emotionally and physically. -Metformin - 1 gm twice a day. No SE. -Phentermine 37.5 mg 0800 - Slynd - Vit D -taking supplement. Size 10 jeans from size 20 wedding is August 02, 2024 -- stopped due to increased anxiety.,deep sadness and crying Interval History Awake - 0630 am 1.5-2 cups coffee with 1 T milk - trying to wean to drinking black coffee. Starts work at 1000 from home B - 12 - egg scramble or egg bites or 30 gm protein shake or beef sticks S - none or rarely cheese stick with proschutto with pistachios/cashews/almonds and Chobani SF [place] yogurt or Triple Zero L - 2-3 pm breakfast sandwich or protein with sweet potato S - none D - 1845 pm meat, small portion - mashed potato/sweet potato fries airfried, occasional vegetable if eating out or Eats out - [place] chicken enchillada, rice & beans or thin crust pizza with added protein S - none Fluids - coffee with a little milk, water, regular pop once a week or so she does not deprive herself. Starbucks - 120 kcal - rare Exercise: stable 5500 steps/day Increased activity with home projects. Mindful of moving Stress: increased Financial, getting 08/2024, future in-laws Sleep: stable 8 hours, well-rested Weight loss since last vist: 12 lbs for total of 56 Date: Weight: BMI: Medications: 06/19/2024 177 lb 30.42 NC15.5 in WC 38.75 in 02/06/2024 189 lb 32.48 11/08/2023 211 lb 36.22 phentermine 37.5 Topiramate 25 08/09/2023 226 lb 38.79 phentermine 15 mg 07/11/2023 233 lb 39.99 WC 44.75 NC 15.75 metformin 5% weight loss = 221 lbs, 10% weight loss = 209 lbs Metformin Start date: ?07/14/2023 Start weight: ?233 lbs. Dose:500 mg with dinner, increased to 1000 mg twice a day -- Patient reports suppression of her appetite and increase in satiety since starting -- Patient reports diarrhea after starting metformin Phentermine Benefit - decreased appetite, smaller portions SE: none Anti-Obesity Medications >Phentermine: No uncontrolled HTN, No CVD Hx or hx of seizure disorder. No MAOI inhibitor use. No drug abuse hx. Crcl > 15. >Topiramate/zonisamide: No seizure or kidney stone hx. Yes hx of migraines, Yes hx of poor sleep. Yes Child bearing age. >Qsymia: see above >Contrave: No contraindications. Could affect mood. No uncontrolled HTN or hx of seizure disorder. No MAOI inhibitor use. No opiate use. >Saxenda/Wegovy/Ozempic: Cost. Ins coverage? >Metformin: No contraindications or medication interactions. eGFR > 30. Estimated Creatinine Clearance: 154.1 mL/min (based on SCr of 0.65 mg/dL). PAST MEDICAL HISTORY Diagnosis Date Migraine with aura, with intractable migraine, so stated, with status migrainosus occular migraines as a teenager PCOS (polycystic ovarian syndrome) Current Outpatient Medications Medication Sig Dispense Refill Phentermine HCl 37.5 mg capsule Take 37.5 mg by mouth. drospirenone, contraceptive, (SLYND) 4 mg (28) tabet Take 1 tablet by mouth once daily. 30 tablet 11 metFORMIN (GLUCOPHAGE) 1,000 mg tablet Take 1 tablet by mouth two times a day with meals. 180 tablet 2 topiramate (TOPAMAX) 25 mg tablet Take 1 tablet by mouth two times a day. (Patient not taking: Reported on 04/01/2024) 180 tablet 1 No current facility-administered medications for this visit. OCCUPATION Works from home Current Contraception: Slynd Obesity ROS/ FHx GEN: Fatigue:yes GI: GERD:yes Symptoms of PCOS: yes NEURO: Migraines/LINDER: yes, occular migraines BP 128/76 Pulse 90 Wt 80.4 kg (177 lb 3.2 oz) LMP 06/19/2024 SpO2 100% BMI 30.42 kg/m Appointment on 07/14/2023 Component Date Value Ref Range Status Vitamin D 25 Hydroxy 07/14/2023 24.5 (L) 31.0 - 80.0 ng/mL Final Insulin 07/14/2023 25.0 3.0 - 25.0 mU/L Final Hemoglobin A1C 07/14/2023 5.2 4.3 - 5.6 % Final Estimated Average Glucose 07/14/2023 103 mg/dL Final WBC 07/14/2023 8.21 3.70 - 11.00 k/uL Final RBC 07/14/2023 4.59 3.90 - 5.20 m/uL Final Hemoglobin 07/14/2023 14.0 11.5 - 15.5 g/dL Final Hematocrit 07/14/2023 42.5 36.0 - 46.0 % Final MCV 07/14/2023 92.6 80.0 - 100.0 fL Final MCH 07/14/2023 30.5 26.0 - 34.0 pg Final MCHC 07/14/2023 32.9 30.5 - 36.0 g/dL Final RDW-CV 07/14/2023 12.3 11.5 - 15.0 % Final Platelet Count 07/14/2023 286 150 - 400 k/uL Final MPV 07/14/2023 10.2 9.0 - 12.7 fL Final Absolute nRBC 07/14/2023 <0.01 <0.01 k/uL Final Protein, Total 07/14/2023 7.3 6.3 - 8.0 g/dL Final Albumin 07/14/2023 4.5 3.9 - 4.9 g/dL Final Calcium, Total 07/14/2023 9.6 8.5 - 10.2 mg/dL Final Bilirubin, Total 07/14/2023 0.3 0.2 - 1.3 mg/dL Final Alkaline Phosphatase 07/14/2023 65 34 - 123 U/L Final AST 07/14/2023 15 13 - 35 U/L Final ALT 07/14/2023 25 7 - 38 U/L Final Glucose 07/14/2023 100 (H) 74 - 99 mg/dL Final BUN 07/14/2023 14 7 - 21 mg/dL Final Creatinine 07/14/2023 0.65 0.58 - 0.96 mg/dL Final Sodium 07/14/2023 136 136 - 144 mmol/L Final Potassium 07/14/2023 4.3 3.7 - 5.1 mmol/L Final Chloride 07/14/2023 101 97 - 105 mmol/L Final CO2 07/14/2023 22 22 - 30 mmol/L Final Anion Gap 07/14/2023 13 9 - 18 mmol/L Final Estimated Glomerular Filtration Ra* 07/14/2023 124 >=60 mL/min/1.73m Final Vitamin B12 07/14/2023 511 232 - 1,245 pg/mL Final Assessment/Plan: Millie Dela Cruz is a 28 year old yo with Class II obesity who presented today for follow up for supervised weight loss to treat PCOS and elevated LDL and prevent related co-morbidities. ASSESSMENT/PLAN: 1. PCOS (polycystic ovarian syndrome) - ICD9: 256.4, ICD10: E28.2 (primary diagnosis) - Whole food balanced protein low-carb nutrition - METFORMIN 500 MG TABLET - PHENTERMINE 37.5 MG TABLET 2. Elevated LDL cholesterol level - ICD9: 272.0, ICD10: E78.00 - Whole food balanced protein low-carb nutrition - PHENTERMINE 37.5 MG TABLET 3. Ocular migraine - ICD9: 346.80, ICD10: G43.109 - decreased number, only occurring with stress 4. Class 2 obesity with body mass index (BMI) of 39.0 to 39.9 in adult, unspecified obesity type, unspecified whether serious comorbidity present - ICD9: 278.00, V85.39, ICD10: E66.9, Z68.39 Weight decreasing - METFORMIN 500 MG TABLET - 1 gm bid - PHENTERMINE 37.5 MG TABLET Patient has met the weight loss requirement of 5% TBW in initial 3 months using phentermine withoutany adverse side effects. Pt has responded well and would like to continue use for weight management. She understands that continued use is off label for senior living management of weight control. The patient is currently enrolled in a diet and exercise program The patient has no known history of contraindications The patient is free from drug or ETHO abuse The patient is not or and is aware not to become while using this medication [place] was reviewed. PDMP website checked and validated. All prescriptions have been APPROPRIATELY filled. No suspicious activity was identified. . Continue - Whole food balanced protein low-carb nutrition - encouraged to increase activity and exercise with goal of 150-200 min/wk. discussed and given information about the role of exercise and weight management. Prescription instructions reviewed with patient as applicable. Potential red flag symptoms discussed with the patient. Reviewed appropriate action plan to take ifred flag symptoms occur. Patient agreeable to treatment plan. Follow up in 3 months nurse visit phentermine refill due to provider BRIANA Enriquez APRN.CNP Advanced Education from the [employer] Medical Decision Making: Problems: Moderate: 1+ chronic illnesses with change Risk: Moderate: Drug management and Moderate risk from testing/treatment Medical Decision Making Level: 4 - Moderate documented in this encounterPome[facility] Hospital09-19-2024 NoteHNO ID: [id number] Author: LEONA ENRIQUEZ APRN.CNP Service: ? Author Type: Nurse Practitioner Type: Progress Notes Filed: 06/19/2024 18:54 Note Text: Some documentation from previous visit of 11/08/2023 was copied and pasted, documentation has been reviewed and edited as necessary for today's visit. Patient Summary: Millie is a 28 year old Female who presents for follow-up evaluation of obesity/weight management to treat PCOS, elevated LDL level and prevent related co-morbidities. In our previous visits we have discussed lifestyle intervention including a nutrition recommendations and physical activity optimization. Her last office visit was 3 months ago. Assessment/plan from last visit: Ectopic treated with methotrexate 04/02/2024. States doing well emotionally and physically. -Metformin - 1 gm twice a day. No SE. -Phentermine 37.5 mg 0800 - Slynd - Vit D -taking supplement. Size 10 jeans from size 20 wedding is August 02, 2024 -- stopped due to increased anxiety.,deep sadness and crying Interval History Awake - 0630 am 1.5-2 cups coffee with 1 T milk - trying to wean to drinking black coffee. Starts work at 1000 from home B - 12 - egg scramble or egg bites or 30 gm protein shake or beef sticks S - none or rarely cheese stick with proschutto with pistachios/cashews/almonds and [employer]obani SF [place] yogurt or Triple Zero L - 2-3 pm breakfast sandwich or protein with sweet potato S - none D - 184 pm meat, small portion - mashed potato/sweet potato fries airfried, occasional vegetable if eating out or Eats out - [place] chicken enchillada, rice AND beans or thin crust pizza with added protein S - none Fluids - coffee with a little milk, water, regular pop once a week or so she does not deprive herself. Starbucks - 120 kcal - rare Exercise: stable 5500 steps/day Increased activity with home projects. Mindful of moving Stress: increased Financial, getting 08/2024, future in-laws Sleep: stable 8 hours, well-rested Weight loss since last vist: 12 lbs for total of 56 Date: Weight: BMI: Medications: 06/19/2024 177 lb 30.42 NC15.5 in WC 38.75 in 02/06/2024 189 lb 32.48 11/08/2023 211 lb 36.22 phentermine 37.5 Topiramate 25 08/09/2023 226 lb 38.79 phentermine 15 mg 07/11/2023 233 lb 39.99 WC 44.75 NC 15.75 metformin 5% weight loss = 221 lbs, 10% weight loss = 209 lbs Metformin Start date: ?07/14/2023 Start weight: ?233 lbs. Dose:500 mg with dinner, increased to 1000 mg twice a day -- Patient reports suppression of her appetite and increase in satiety since starting -- Patient reports diarrhea after starting metformin Phentermine Benefit - decreased appetite, smaller portions SE: none Anti-Obesity Medications >Phentermine: No uncontrolled HTN, No CVD Hx or hx of seizure disorder. No MAOI inhibitor use. No drug abuse hx. Crcl > 15. >Topiramate/zonisamide: No seizure or kidney stone hx. Yes hx of migraines, Yes hx of poor sleep. Yes Child bearing age. >Qsymia: see above >Contrave: No contraindications. Could affect mood. No uncontrolled HTN or hx of seizure disorder. No MAOI inhibitor use. No opiate use. >Saxenda/Wegovy/Ozempic: Cost. Ins coverage? >Metformin: No contraindications or medication interactions. eGFR > 30. Estimated Creatinine Clearance: 154.1 mL/min (based on SCr of 0.65 mg/dL). PAST MEDICAL HISTORY Diagnosis Date Migraine with aura, with intractable migraine, so stated, with status migrainosus occular migraines as a teenager PCOS (polycystic ovarian syndrome) Current Outpatient Medications Medication Sig Dispense Refill Phentermine HCl 37.5 mg capsule Take 37.5 mg by mouth. drospirenone, contraceptive, (SLYND) 4 mg (28) tabet Take 1 tablet by mouth once daily. 30 tablet 11 metFORMIN (GLUCOPHAGE) 1,000 mg tablet Take 1 tablet by mouth two times a day with meals. 180 tablet 2 topiramate (TOPAMAX) 25 mg tablet Take 1 tablet by mouth two times a day. (Patient not taking: Reported on 04/01/2024) 180 tablet 1 No current facility-administered medications for this visit. OCCUPATION Works from home Current Contraception: Slynd Obesity ROS/ FHx GEN: Fatigue:yes GI: GERD:yes Symptoms of PCOS: yes NEURO: Migraines/LINDER: yes, occular migraines BP 128/76 Pulse 90 Wt 80.4 kg (177 lb 3.2 oz) LMP 06/19/2024 SpO2 100% BMI 30.42 kg/m? Appointment on 07/14/2023 Component Date Value Ref Range Status Vitamin D 25 Hydroxy 07/14/2023 24.5 (L) 31.0 - 80.0 ng/mL Final Insulin 07/14/2023 25.0 3.0 - 25.0 mU/L Final Hemoglobin A1C 07/14/2023 5.2 4.3 - 5.6 % Final Estimated Average Glucose 07/14/2023 103 mg/dL Final WBC 07/14/2023 8.21 3.70 - 11.00 k/uL Final RBC 07/14/2023 4.59 3.90 - 5.20 m/uL Final Hemoglobin 07/14/2023 14.0 11.5 - 15.5 g/dL Final Hematocrit 07/14/2023 42.5 36.0 - 46.0 % Final MCV 07/14/2023 92.6 80.0 - 100.0 fL Final MCH 07/14/2023 30.5 26.0 - 34.0 pg Final MCHC 07/14/2023 32. (more content not included)...[facility] History of Present illness Narrative* Zahra Muniz MD - 04/02/2024 10:00 AM EDT [facility] ATTEND[facility] PHYSICIAN METHOTREXATE COUNSELING NOTE The patient has the diagnosis of an ectopic (not a viable intrauterine ) based on abnormal HCG levels and no IUP. The diagnosis was discussed with the patient. The patient is a candidate for medical management. The risks/benefits/alternatives of medical management vs surgical management were discussed in detail with the patient and she desires medical management with Methotrexate. The patient s case (including labs and imaging) was reviewed with Dr. White who agrees with the diagnosis, management plan and dosing of Methotrexate. Both providers confirm that there are no contraindications to the procedure. Informed consent obtained. RH: Positive Patient counseled regarding the need for follow up HCG in 4 days and 7 days. Zahra Muniz MD [facility] METHOTREXATE INJECTION NOTE Procedure Date: April 02, 2024 Procedure: Methotrexate Injection Indication: Millie Dela Cruz presents for Methotrexate injection for ectopic . [facility] ATTENDING PHYSICIAN METHOTREXATE COUNSELING NOTE completed by Dr Vieira. Patient's last menstrual period was 02/05/2024 (exact date). Procedure Details: Methotrexate ordered by: Dr Vieira Dose: 50mg/m2, BSA - There is no height or weight on file to calculate BSA., actual dose 98 mg Dose calculation confirmed by: Rachana White MD Lot #: [id number] Expiration Date: 09/23 UNIVERSAL PROTOCOL / SAFETY CHECKLIST Procedure to be Performed: Methotrexate injection Sign In: A Moment of CARE was completed. Personnel directly involved with the procedure wore the appropriate PPE (Personal Protective Equipment). Patient/Surrogate Stated/Verified: PATIENT VERIFIED(optional for EMERGENT procedures): Patient name, Date of , Relevant allergies, and The intended procedure Time Out Communication: Intended patient and procedure match the source documents. Consent documented and matches the intended procedure. Sign Out: SIGN OUT (optional for EMERGENT procedures): No specimen collected. Zahra Muniz MD Methotrexate given in Upper outer quadrant rt. gluteus and Upper outer quadrant lt. gluteus. Zahra Muniz MD documented in this encounterPomerene Hospital07-03-2024 Instructions* Patient Instructions* Zahra Muniz MD - 04/02/2024 8:40 AM EDT ECTOPIC PATIENT INFORMATION You have received treatment for an ectopic . An ectopic occurs when the embryo implants in the fallopian tube or outside the uterus. This condition is a serious condition that requires prompt treatment. Ectopic is treated with a drug called Methotrexate. This medication stops the cells from dividing. This medication is given by injection. All medications have side effects. However, many people do not experience them, or have a mild form. Severe side effects of this medication more commonly develop with senior living treatment, such as received by cancer patients. Methotrexate for Ectopic : You were given a medication called methotrexate to treat your ectopic and prevent dangerous complications. Please follow these instructions carefully and plan close follow-up to ensure the safest possible outcome. AVOID the following after treatment until HCG returns to normal or instructed by your provider: Vitamins that contain folic acid (this includes all vitamins) Alcohol Penicillin and Sulfa antibiotics Nonsteroidal anti-inflammatory medications (e.g., ibuprofen, Advil , Motrin , Aleve ) Common and normal side effects: Nausea or vomiting Poor appetite Headache Insomnia Mild abdominal pain or cramping Spotting Fatigue Indigestion When to call 911 or emergency services: Difficulty breathing Swelling of your face, lips, tongue, or throat Severe abdominal or pelvic pain Call you doctor if you experience: Hives Blood tinged vomit Feeling lightheaded or dizzy Sores in your mouth or on your lips Black and tarry stool Blood in your urine Warning signs of methotrexate failure; please call the physician with any of the following: Sharp abdominal pain Pain on one side Dizziness, weakness Pain in the shoulder or neck Heavy vaginal bleeding Additional instructions: Methotrexate can take up to 30 days or more to be fully excreted from the body. It is cleared out of your body in both urine and stool, so wash your hands well after using the restroom. Do not have sexual intercourse until your physician has determined it is safe to do so. Use reliable contraception for at least 90 days after the methotrexate injection. Do not attempt until at least 90 days after the injection. Avoid sun exposure. Avoid heavy lifting or strenuous activity. Follow-up: Blood work needs to be repeated on Day 4 and again on Day 7 after receiving the methotrexate (Day 1is the day of treatment) to confirm that it is working appropriately. Day 1: 04/02/2024 (Methotrexate Administration) Day 4: 04/07/24Sunday Day 7: 04/08/24Sunday See your physician on Day 7 or 8 to review results of the labs and determine the next best step in your management. Important contact Information: Listed below is the contact information for the provider you have seen and will be providing follow-up care. If there is a question or concern, please contact the provider/group providing your care directly. Encounter provider: Zahra Muniz MD Number: [phone] Evenings and weekends: After hours, the office number will forward to the answering service who will contact the on-call Gynecology (LOOM TUNER) doctor. If there is difficulty in connecting, the alternative number is [phone]. Note: If your concern is an emergency, please call 911. [facility] History of Present illness Narrative* George Vieira MD - 04/01/2024 10:36 AM EDT Millie Dela Cruz is a 28 year old female who presents for problem visit. HPI: Patient presents with light vaginal bleeding. She denies pain or other complaints. OB History T0 L0 SAB0 IAB0 Ectopic0 Multiple0 Live Births0 Belt Knife Feeder History LMP: 02/05/2024 (Exact Date), Having periods Age at Menarche: Age at First : Age at Menopause: Belt Knife Feeder History Comments: Sexual Activity: Yes; Male Contraception: No contraception data on record PAST MEDICAL HISTORY Diagnosis Date Migraine with aura, with intractable migraine, so stated, with status migrainosus occular migraines as a teenager PCOS (polycystic ovarian syndrome) PAST SURGICAL HISTORY Procedure Laterality Date REFRACTIVE SURGERY OD (RIGHT EYE) 2019 FAMILY HISTORY Problem Relation Age of Onset other (polycystic ovary syndrome) Mother other (cervical dysplasia) Mother Obesity Mother Obesity Father Obesity Sister Obesity Brother Breast Cancer Maternal Grandmother Obesity Paternal Grandmother Social History Tobacco Use Smoking status: Every Day Types: Pipe Smokeless tobacco: Never Vaping Use Vaping Use: Never used Substance Use Topics Alcohol use: Yes Comment: occasional Drug use: Not Currently Current Outpatient Medications Medication Sig cephALEXin (KEFLEX) 500 mg capsule Take 500 mg by mouth three times a day. Phentermine HCl 37.5 mg tablet Take 1 tablet by mouth daily before breakfast for 90 days. metFORMIN (GLUCOPHAGE) 1,000 mg tablet Take 1 tablet by mouth two times a day with meals. drospirenone, contraceptive, (SLYND) 4 mg (28) tabet Take 1 tablet by mouth once daily. (Patient not taking: Reported on 04/01/2024) topiramate (TOPAMAX) 25 mg tablet Take 1 tablet by mouth two times a day. (Patient not taking: Reported on 04/01/2024) No current facility-administered medications for this visit. Allergies As of Date: 04/01/2024 Allergen Noted Reaction AMOXICILLIN 01/09/2017 Rash ZYTHROMAX [AZITHROMYCIN] 01/09/2017 Rash Fully Assessed 04/01/2024 Allergies and current medication updated:Yes EXAM: LMP 02/05/2024 GENERAL: pleasant, female in no apparent distress ASSESSMENT AND PLAN: Reviewed pelvic US from ED on 03/28/24 that showed no evidence of IUP or ectopic . HCG level was 175. She was given Keflex for a UTI. Patient called after visit with hcg level of 215. She meets criteria for an ectopic . Patient declines going to ED tonight as no pain. She was advised to proceed with ED for any increased pain or bleeding overnight. Plan is that she will follow up for labs tomorrow morning and then proceedwith methotrexate injection. All questions answered. Medical Decision Making: Problems: Moderate: New problem with uncertain prognosis Data: Unique test(s) ordered: 3+ Risk: Moderate: Drug management Medical Decision Making Level: 4 - Moderate George Vieira MD documented [facility] Telephone encounter Note * Telephone Encounter - Merry White MD - 03/31/2024 10:34 AM EDT yes. Thanks. Merry White MD [facility] Work Phone: 1(843) 530-628107-01-2024 Miscellaneous Notes* Telephone Encounter - Merry White MD - 03/31/2024 10:34 AM EDT yes. Thanks. Merry White MD * Telephone Encounter - Minda Dela Cruz RN - 03/31/2024 10:16 AM EDT Patient called and states she is unable to come into office until tomorrow. States pain is mild andis now just intermittent cramping. Appointment given with KJ tomorrow. Is this ok? Minda Dela Cruz RN * Telephone Encounter - Merry Whiet MD - 03/31/2024 9:53 AM EDT Can she come in today to discuss a plan? Dr. Wallace at 1050? Thanks. Merry White MD * Telephone Encounter - Zahra Baez RN - 03/31/2024 9:21 AM EDT Patient last seen on 03/18 for threatened . States she went to [facility] ER due to right sided pain. US OB LESS THAN 14 WEEKS EARLY Final Result 1. Normal ultrasound of the uterus and ovaries. There is no sign of an intrauterine gestation at this time. These findings are consistent with ectopic , spontaneous or very early intrauterine . Clinical correlation and follow-up are Necessary. hCG Quantitative, Blood (mIU/mL) Date Value 03/28/2024 159.4 03/18/2024 152.4 ER serum quant on 03/28 was 175. Patient states she was advised to f/u in our office in about a week for an ultrasound. She is no longer having pain. For the last week her bleeding has been brown in color and only when she wipes. Please advise. Zahra Baez RN documented [facility]07-[facility] Telephone encounter Note * Telephone Encounter - Minda Dela Cruz RN - 03/31/2024 10:16 AM EDT Patient called and states she is unable to come into office until tomorrow. States pain is mild andis now just intermittent cramping. Appointment given with KJ tomorrow. Is this ok? Minda Dela Cruz RN [facility]07-01[facility] Telephone encounter Note* Telephone Encounter - Merry White MD - 03/31/2024 9:53 AM EDT Can she come in today to discuss a plan? Dr. Wallace at 1050? Thanks. Merry White MD [facility]07-[facility] Telephone encounter Note* Telephone Encounter - Zahra Baez RN - 03/31/2024 9:21 AM EDT Patient last seen on 03/18 for threatened . States she went to [facility] ER due to right sided pain. US OB LESS THAN 14 WEEKS EARLY Final Result 1. Normal ultrasound of the uterus and ovaries. There is no sign of an intrauterine gestation at this time. These findings are consistent with ectopic , spontaneous or very early intrauterine . Clinical correlation and follow-up are Necessary. hCG Quantitative, Blood (mIU/mL) Date Value 03/28/2024 159.4 03/18/2024 152.4 ER serum quant on 03/28 was 175. Patient states she was advised to f/u in our office in about a week for an ultrasound. She is no longer having pain. For the last week her bleeding has been brown in color and only when she wipes. Please advise. Zahra Baez, RN [facility]06[facility] Emergency department Note* Alexa Duvall, C[employer] OFF [employer] - 03/28/2024 6:11 PM EDT Chief Complaint Patient presents with Vaginal Bleeding Amb to ER from home with c/o vaginal bleeding/spotting last 5 days- test positive yesterday--has been to OBGYN for heavier bleeing last week but did not follow through with repeat blood testfor following her HCG--also c/o some dizziness today--M1 Patient History History reviewed. No pertinent past medical history. History reviewed. No pertinent surgical history. No family history on file. Social History Social History Narrative Not on file Allergies Allergen Reactions Amoxicillin Rash Zithromax [Azithromycin] Rash PMH: Reviewed PSH: Reviewed Social History: Reviewed. Allergies reviewed. HPI: Millie Dela Cruz is a 28 y.o. female who presents to the ED today accompanied by her fianc with complaints of vaginal bleeding/spotting, positive test, right lower abdominal pain, dizziness. Patient states her last menstrual period was 02/05/2024. She had positive home test. Had been having heavy bleeding and was seen by OB last week. Had a low-level quant test at that time. She was told that she was likely having a miscarriage. She was not aware that she needed to get serial quant levels drawn, and had not gotten that repeated. States that the bleeding stopped 4 days ago. She has been spotting over the last 2 days. And today she feels dizzy. She is been having intermittent right lower abdominal pain as well. She has history of prior miscarriage early in . REVIEW OF SYSTEMS: All other systems reviewed and negative except as listed in HPI. PHYSICAL EXAM: GENERAL: Vitals noted, no distress. Alert and oriented x 3. Non-toxic. EENT: TMs clear. Posterior oropharynx unremarkable. EOMI, no nystagmus noted. NECK: Supple. No masses. No midline tenderness. No meningeal signs. CARDIAC: Regular rate, rhythm. No murmurs rubs or gallops. No JVD. PULMONARY: Lungs clear and equal bilaterally. No wheezes rales or rhonchi. No respiratory distress. ABDOMEN: Soft, nondistended, and minimally diffusely tender in the lower abdomen to palpation. No peritoneal signs. Bowel sounds are present and normoactive in all 4 quadrants. No pulsatile masses. EXTREMITIES: No peripheral edema. SKIN: No rash. Warm, dry, and intact. NEURO: No focal neurologic deficits. Labs Reviewed COMPREHENSIVE METABOLIC PANEL - Abnormal Result Value Glucose 94 Sodium 134 (*) Potassium 3.7 Chloride 99 Bicarbonate 28 Anion Gap 11 Urea Nitrogen 10 Creatinine 0.70 eGFR >90 Calcium 9.3 Albumin 4.5 Alkaline Phosphatase 58 Total Protein 7.2 AST 15 Bilirubin, Total 0.3 ALT 22 HUMAN CHORIONIC GONADOTROPIN, SERUM QUANTITATIVE - Abnormal HCG, Beta-Quantitative 175 (*) Narrative: Total HCG measurement is performed using the [employer] Access Immunoassay which detects intact HCG and free beta HCG subunit. This test is not indicated for use as a tumor marker. HCG testing is performed using a different test methodology at [facility] than other [facility]. Direct result comparison should only be made within the same method. URINALYSIS WITH REFLEX CULTURE AND MICROSCOPIC - Abnormal Color, Urine Light-Yellow Appearance, Urine Turbid (*) Specific [place], Urine 1.010 pH, Urine 6.5 Protein, Urine 10 (TRACE) Glucose, Urine Normal Blood, Urine OVER (3+) (*) Ketones, Urine NEGATIVE Bilirubin, Urine NEGATIVE Urobilinogen, Urine Normal Nitrite, Urine NEGATIVE Leukocyte Esterase, Urine NEGATIVE URINALYSIS MICROSCOPIC WITH REFLEX CULTURE - Abnormal WBC, Urine 1-5 RBC, Urine 3-5 Squamous Epithelial Cells, Urine 1-9 (SPARSE) Bacteria, Urine 2+ (*) URINE CULTURE CBC WITH AUTO DIFFERENTIAL WBC 10.8 nRBC 0.0 RBC 4.42 Hemoglobin 13.5 Hematocrit 40.7 MCV 92 MCH 30.5 MCHC 33.2 RDW 12.2 Platelets 343 Neutrophils % 65.0 Immature Granulocytes %, Automated 0.3 Lymphocytes % 26.1 Monocytes % 7.6 Eosinophils % 0.4 Basophils % 0.6 Neutrophils Absolute 7.03 Immature Granulocytes Absolute, Automated 0.03 Lymphocytes Absolute 2.82 Monocytes Absolute 0.82 Eosinophils Absolute 0.04 Basophils Absolute 0.06 TYPE AND SCREEN ABO TYPE O Rh TYPE POS ANTIBODY SCREEN NEG URINALYSIS WITH REFLEX CULTURE AND MICROSCOPIC Narrative: The following orders were created for panel order Urinalysis with Reflex Culture and Microscopic. Procedure Abnormality Status --------- ------ Urinalysis with Reflex C...[] Abnormal Final result Extra Urine Griggs Tube[] Please view results for these tests on the individual orders. EXTRA URINE GRIGGS TUBE US OB LESS THAN 14 WEEKS EARLY Final Result 1. Normal ultrasound of the uterus and ovaries. There is no sign of an intrauterine gestation at this time. These findings are consistent with ectopic , spontaneous or very early intrauterine . Clinical correlation and follow-up are necessary MACRO: None Signed by: Lacey Farias 03/28/2024 9:55 PM Dictation workstation: [id number] Medical Decision Making Amount and/or Complexity of Data Reviewed Labs: ordered. Radiology: ordered. ECG/medicine tests: ordered. EKG interpreted by myself shows ST with rate of 126. Normal axis. KS interval 150. QRS interval 82.QT interval 296. QTc interval 428. Non-specific ST-T wave changes. No acute ischemia or injury pattern. ED COURSE: This patient was seen and examined by myself independently. Patient has an IV established. Labs are obtained and are noted above. Old records reviewed shows a quant of 152 on 03/18/2024 andquant today is 175. Blood type O+. No anemia noted on CBC. Urinalysis shows blood, 2+ bacteria, culture pending. Ultrasound of the pelvis shows normal ultrasound of uterus and ovaries, no sign of IUP. Given her low level quant 10 days ago, continued low-level quant today, this is likely spontaneousabortion. Less likely ectopic with the timeframe, based on dates would be 7w3d. Recommended she follow-up with her CLINICAL RESEARCH PHYSICIAN provider in 3 days for repeat evaluation and repeat ultrasound and quant testing as appropriate. She verbalized understanding. Will treat her urinalysis with Keflex, pending culture. Recommend return to ED for any new or worsening symptoms, return precautions given. Patient is discharged home in stable condition with computer instructions given. Differential Diagnoses Considered: Miscarriage, ectopic , first trimester Chronic Medical Conditions Significantly Affecting Care: See above External Records Reviewed: I reviewed recent and relevant outside records including: PCP notes, prior discharge summary, previous radiologic studies Diagnostic testing considered: Blood, urine, ultrasound Escalation of Care: Appropriate for outpatient management Prescription Drug Consideration: Antibiotics DIAGNOSTIC IMPRESSION: #1 vaginal bleeding in first trimester , suspected miscarriage #2 UTI CASSY Pate 03/28/24 4453 CASSY Pate 03/28/24 4196 documented in this [facility] Work Phone: 1(876) 605-105506-28-2024 Physician Emergency department Note* CASSY Pate - 03/28/2024 6:11 PM EDT Chief Complaint Patient presents with Vaginal Bleeding Amb to ER from home with c/o vaginal bleeding/spotting last 5 days- test positive yesterday--has been to OBGYN for heavier bleeing last week but did not follow through with repeat blood testfor following her HCG--also c/o some dizziness today--M1 Patient History History reviewed. No pertinent past medical history. History reviewed. No pertinent surgical history. No family history on file. Social History Social History Narrative Not on file Allergies Allergen Reactions Amoxicillin Rash Zithromax [Azithromycin] Rash PMH: Reviewed PSH: Reviewed Social History: Reviewed. Allergies reviewed. HPI: Millie Dela Cruz is a 28 y.o. female who presents to the ED today accompanied by her fianc with complaints of vaginal bleeding/spotting, positive test, right lower abdominal pain, dizziness. Patient states her last menstrual period was 02/05/2024. She had positive home test. Had been having heavy bleeding and was seen by OB last week. Had a low-level quant test at that time. She was told that she was likely having a miscarriage. She was not aware that she needed to get serial quant levels drawn, and had not gotten that repeated. States that the bleeding stopped 4 days ago. She has been spotting over the last 2 days. And today she feels dizzy. She is been having intermittent right lower abdominal pain as well. She has history of prior miscarriage early in . REVIEW OF SYSTEMS: All other systems reviewed and negative except as listed in HPI. PHYSICAL EXAM: GENERAL: Vitals noted, no distress. Alert and oriented x 3. Non-toxic. EENT: TMs clear. Posterior oropharynx unremarkable. EOMI, no nystagmus noted. NECK: Supple. No masses. No midline tenderness. No meningeal signs. CARDIAC: Regular rate, rhythm. No murmurs rubs or gallops. No JVD. PULMONARY: Lungs clear and equal bilaterally. No wheezes rales or rhonchi. No respiratory distress. ABDOMEN: Soft, nondistended, and minimally diffusely tender in the lower abdomen to palpation. No peritoneal signs. Bowel sounds are present and normoactive in all 4 quadrants. No pulsatile masses. EXTREMITIES: No peripheral edema. SKIN: No rash. Warm, dry, and intact. NEURO: No focal neurologic deficits. Labs Reviewed COMPREHENSIVE METABOLIC PANEL - Abnormal Result Value Glucose 94 Sodium 134 (*) Potassium 3.7 Chloride 99 Bicarbonate 28 Anion Gap 11 Urea Nitrogen 10 Creatinine 0.70 eGFR >90 Calcium 9.3 Albumin 4.5 Alkaline Phosphatase 58 Total Protein 7.2 AST 15 Bilirubin, Total 0.3 ALT 22 HUMAN CHORIONIC GONADOTROPIN, SERUM QUANTITATIVE - Abnormal HCG, Beta-Quantitative 175 (*) Narrative: Total HCG measurement is performed using the [employer] Access Immunoassay which detects intact HCG and free beta HCG subunit. This test is not indicated for use as a tumor marker. HCG testing is performed using a different test methodology at [facility] than other [facility]. Direct result comparison should only be made within the same method. URINALYSIS WITH REFLEX CULTURE AND MICROSCOPIC - Abnormal Color, Urine Light-Yellow Appearance, Urine Turbid (*) Specific [place], Urine 1.010 pH, Urine 6.5 Protein, Urine 10 (TRACE) Glucose, Urine Normal Blood, Urine OVER (3+) (*) Ketones, Urine NEGATIVE Bilirubin, Urine NEGATIVE Urobilinogen, Urine Normal Nitrite, Urine NEGATIVE Leukocyte Esterase, Urine NEGATIVE URINALYSIS MICROSCOPIC WITH REFLEX CULTURE - Abnormal WBC, Urine 1-5 RBC, Urine 3-5 Squamous Epithelial Cells, Urine 1-9 (SPARSE) Bacteria, Urine 2+ (*) URINE CULTURE CBC WITH AUTO DIFFERENTIAL WBC 10.8 nRBC 0.0 RBC 4.42 Hemoglobin 13.5 Hematocrit 40.7 MCV 92 MCH 30.5 MCHC 33.2 RDW 12.2 Platelets 343 Neutrophils % 65.0 Immature Granulocytes %, Automated 0.3 Lymphocytes % 26.1 Monocytes % 7.6 Eosinophils % 0.4 Basophils % 0.6 Neutrophils Absolute 7.03 Immature Granulocytes Absolute, Automated 0.03 Lymphocytes Absolute 2.82 Monocytes Absolute 0.82 Eosinophils Absolute 0.04 Basophils Absolute 0.06 TYPE AND SCREEN ABO TYPE O Rh TYPE POS ANTIBODY SCREEN NEG URINALYSIS WITH REFLEX CULTURE AND MICROSCOPIC Narrative: The following orders were created for panel order Urinalysis with Reflex Culture and Microscopic. Procedure Abnormality Status --------- ------ Urinalysis with Reflex C...[] Abnormal Final result Extra Urine Griggs Tube[] Please view results for these tests on the individual orders. EXTRA URINE GRIGGS TUBE US OB LESS THAN 14 WEEKS EARLY Final Result 1. Normal ultrasound of the uterus and ovaries. There is no sign of an intrauterine gestation at this time. These findings are consistent with ectopic , spontaneous or very early intrauterine . Clinical correlation and follow-up are necessary MACRO: None Signed by: Lacey Farias 03/28/2024 9:55 PM Dictation workstation: [id number] Medical Decision Making Amount and/or Complexity of Data Reviewed Labs: ordered. Radiology: ordered. ECG/medicine tests: ordered. EKG interpreted by myself shows ST with rate of 126. Normal axis. KS interval 150. QRS interval 82.QT interval 296. QTc interval 428. Non-specific ST-T wave changes. No acute ischemia or injury pattern. ED COURSE: This patient was seen and examined by myself independently. Patient has an IV established. Labs are obtained and are noted above. Old records reviewed shows a quant of 152 on 03/18/2024 andquant today is 175. Blood type O+. No anemia noted on CBC. Urinalysis shows blood, 2+ bacteria, culture pending. Ultrasound of the pelvis shows normal ultrasound of uterus and ovaries, no sign of IUP. Given her low level quant 10 days ago, continued low-level quant today, this is likely spontaneousabortion. Less likely ectopic with the timeframe, based on dates would be 7w3d. Recommended she follow-up with her CLINICAL RESEARCH PHYSICIAN provider in 3 days for repeat evaluation and repeat ultrasound and quant testing as appropriate. She verbalized understanding. Will treat her urinalysis with Keflex, pending culture. Recommend return to ED for any new or worsening symptoms, return precautions given. Patient is discharged home in stable condition with computer instructions given. Differential Diagnoses Considered: Miscarriage, ectopic , first trimester Chronic Medical Conditions Significantly Affecting Care: See above External Records Reviewed: I reviewed recent and relevant outside records including: PCP notes, prior discharge summary, previous radiologic studies Diagnostic testing considered: Blood, urine, ultrasound Escalation of Care: Appropriate for outpatient management Prescription Drug Consideration: Antibiotics DIAGNOSTIC IMPRESSION: #1 vaginal bleeding in first trimester , suspected miscarriage #2 UTI CASSY Pate 03/28/24 2213 CASSY Pate 03/28/242215 [facility] Work Phone: 1(720) 816-230306-18-2024 History of Present illness Narrative* Zahra Muniz MD - 03/18/2024 2:03 PM EDT Millie Dela Cruz is a 28 year old female who presents for problem visit Pos test and bleeding HPI: Was taking POP and in the weight loss program. Positive test 03/07. Started bleeding this weekend. Heavy yesterday. Like a period now. Would be 6 weeks exactly by LMP today. test was faintly pos and is not negative at home. Very early loss likely. Was taking POP BC and did take a pill late. Is taking progesterone only because of migraine hx. Would like to avoid until after wedding in Aug. Discussed HCGs and then starting Slynd. POP but less sensitive to timing. OB History T0 L0 SAB0 IAB0 Ectopic0 Multiple0 Live Births0 Belt Knife Feeder History LMP: 02/05/2024 (Exact Date), Having periods Age at Menarche: Age at First : Age at Menopause: Belt Knife Feeder History Comments: Sexual Activity: Yes; Male Contraception: No contraception data on record PAST MEDICAL HISTORY Diagnosis Date Migraine with aura, with intractable migraine, so stated, with status migrainosus occular migraines as a teenager PCOS (polycystic ovarian syndrome) PAST SURGICAL HISTORY Procedure Laterality Date REFRACTIVE SURGERY OD (RIGHT EYE) 2019 FAMILY HISTORY Problem Relation Age of Onset other (polycystic ovary syndrome) Mother other (cervical dysplasia) Mother Obesity Mother Obesity Father Obesity Sister Obesity Brother Breast Cancer Maternal Grandmother Obesity Paternal Grandmother Social History Tobacco Use Smoking status: Every Day Types: Pipe Smokeless tobacco: Never Vaping Use Vaping Use: Never used Substance Use Topics Alcohol use: Yes Comment: occasional Drug use: Not Currently Current Outpatient Medications Medication Sig metFORMIN (GLUCOPHAGE) 1,000 mg tablet Take 1 tablet by mouth two times a day with meals. drospirenone, contraceptive, (SLYND) 4 mg (28) tabet Take 1 tablet by mouth once daily. topiramate (TOPAMAX) 25 mg tablet Take 1 tablet by mouth two times a day. Phentermine HCl 37.5 mg tablet Take 1 tablet by mouth daily before breakfast for 90 days. guaiFENesin (MUCINEX) 600 mg 12 hr tablet Take 2 tablets by mouth twice daily. sodium chloride (AYR SALINE) 0.65 % drop Use 1 Drop in the nose every 2 hours as needed. benzocaine-menthol (CEPACOL) 15-2.6 mg lozg lozenge Take 1 Lozenge by mouth every 2 hours as needed. fluticasone (FLONASE ALLERGY RELIEF) 50 mcg/actuation nasal spray Use 1 [place] in each nostril once daily. Omeprazole 40 mg capsule Take 1 capsule by mouth once daily. (Patient not taking: Reported on 01/03/2019 ) No current facility-administered medications for this visit. Allergies As of Date: 03/18/2024 Allergen Noted Reaction AMOXICILLIN 01/09/2017 Rash ZYTHROMAX [AZITHROMYCIN] 01/09/2017 Rash Fully Assessed 03/18/2024 REVIEW OF SYSTEMS Abdomen: No bloating, early satiety, indigestion, or increased flatulence. No abdominal pain, nausea, vomiting, diarrhea, or constipation. Bladder: No dysuria, gross hematuria, urinary frequency, urinary urgency, or incontinence. Breast: No breast lumps, nipple d/c, overlying skin changes, redness or skin retraction. Expanded ROS: N/A Allergies and current medication updated:Yes EXAM: BP 122/76 Wt 188 lb 3.2 oz (85.4kg) LMP 02/05/2024 GENERAL: pleasant, female in no apparent distress HEENT: Normocephalic, atraumatic, mucus membranes moist, and no lesions NECK: full range of motion DERMATOLOGY: Normal, without lesions, non-icteric, and non-hirsute BREAST: deferred CHEST: Normal inspiratory effort ABDOMEN: Deferred PELVIC: deferred BIMANUAL: deferred NEURO: alert and oriented x3,exam grossly non-focal EXTREMITIES: normal ASSESSMENT AND PLAN: Encounter Diagnosis ICD-10-CM 1. Missed menses N92.6 HCG QUANTITATIVE 2. Encounter for BCP ( control pills) initial prescription Z30.011 3. Threatened O20.0 Most likely SAB. Following Hcg and then starting Slynd Would like to continue with weight loss. Appointment rescheduled Zahra Muniz MD documented [facility] Telephone encounter Note * Telephone Encounter - Irene Mc APRN.CNM - 03/17/2024 1:59 PM EDT Can you please schedule patient for appointment when she returns and can discuss testing and management. Thanks, Irene Mc APRN.CNM [facility] Work Phone: [phone]) 625-376606-17-2024 Miscellaneous Notes* Telephone Encounter - Irene Mc APRN.CNM - 03/17/2024 1:59 PM EDT Can you please schedule patient for appointment when she returns and can discuss testing and management. [place], Irene Mc APRN.CNM * Telephone Encounter - Nat Matias LPN - 03/17/2024 1:23 PM EDT Patient has first ob appointment 03/31. LMP: 02/05/2024 Patient reports hat she was having dark brown spotting, cramping, lower back pian for 2 days and 2 hours ago her bleeding began to be like a menses. Bleeding is bright red with tiny clots and c/o mild cramping. Patient had a miscarriage 2 years ago. Patient is currently at a out of state and will not be home until tomorrow. Please advise. documented in this encounterP[facility]06-17-[facility]24 Telephone encounter Note * Telephone Encounter - Nat Matias LPN - 03/17/2024 1:23 PM EDT Patient has first ob appointment 03/31. LMP: 02/05/2024 Patient reports hat she was having dark brown spotting, cramping, lower back pian for 2 days and 2 hours ago her bleeding began to be like a menses. Bleeding is bright red with tiny clots and c/o mild cramping. Patient had a miscarriage 2 years ago. Patient is currently at a out of state and will not be home until tomorrow. Please advise. [facility] Tele[facility] encounter Note* Telephone Encounter - Lali Aguiar RN - 03/07/2024 11:34 AM EDT Last weight mgmt appointment 02/06/24 and patient is now . See 03/06/24 mychart message encounter. Patient requested rx there. [facility] Miscellaneous Notes* Telephone Encounter - Lali Aguiar RN - 03/07/2024 11:34 AM EDT Last weight mgmt appointment 02/06/24 and patient is now . See 03/06/24 mychart message encounter. Patient requested rx there. documented in this encounterP[facility]05-08-2024 Instructions* Patient Instructions* Leona Enriquez APRN.PERFORMANCE TESTER - 02/06/2024 12:00 PM EDT Vitamin D3 supplement - begin again Follow-up weight management visits can be virtual. You will need to report a current blood pressure, heart rate (pulse) and weight at the beginning of each virtual appointment so you will need to have a reliable BP cuff, either wrist or upper arm. If you need to change appointment times or want to change to an in- office visit, you need to call our office as we have designated appointment slots. documented in this encounterP[facility]05-08-2024 History of Present illness Narrative* Leona Enriquez APRN.EVE - 02/06/2024 11:30 AM EDT Some documentation from previous visit of 11/08/2023 was copied and pasted, documentation has been reviewed and edited as necessary for today's visit. Patient Summary: Millie is a 28 year old Female who presents for follow-up evaluation of obesity/weight management to treat PCOS, elevated LDL level and prevent related co-morbidities. In our previous visits we have discussed lifestyle intervention including a nutrition recommendations and physical activity optimization. Her last office visit was 3 months ago. Assessment/plan from last visit: Excited that she now wears a size 12 instead of a 20!. Happy that she ordered her wedding dress a size small. Always an emotional person. Crying easily in empathy for past 6 -7 months. Beginning 2 months ago, she noticed she is more emotional with deep sadness and crying easily about situations instead of being just annoyed. Happening primarily prior to menses. Under stress as wedding is August 02, 2024 and having difficulty with future in-laws. Metformin - 1 gm twice a day. No SE. Topiramate 25 mg twice daily 0800 and after work at 2029 Phentermine 37.5 mg 0800 Micronor started 3 months ago Vit D - not taking supplement. Stopped because mom developed kidney stones when taking Vit D3 Interval History Awake - 0800 am 1.5-2 cups coffee with 2 T milk - trying to wean to drinking black coffee. Starts work at 1100 from home B - 12 - egg scramble or egg bites from [employer] S - none L - 2-3 pm cheese stick with proschutto with pistachios/cashews/almonds and [employer] SF Guamanian yogurtor Triple Zero S - none D - 5 pm meat, small portion - tortilla if eating taco/mashed potato/sweet potato fries airfried, occasional vegetable f eating out or Eats out - [place] chicken enchillada, rice & beans S - nuts or meat stick or cuties Fluids - coffee with a little milk, water, pop - very little, Starbucks - 120kcal Exercise: stable 5000 steps/day Stress: increased Financial, getting 08/2024, future in-laws, new job with long hours Sleep: stable 8 hours, well-rested Weight loss since last vist: 22 lbs for total of 44 lbs 02/06/2024 189 lb BMI 32.48 11/08/2023 211 lb BMI 36.22 phentermine 37.5 Topiramate 25 08/09/2023 226 lb BMI 38.79 phentermine 15 mg 07/11/2023 233 lb BMI 39.99 WC 44.75 NC 15.75 metformin 5% weight loss = 221 lbs, 10% weight loss = 209 lbs Metformin Start date: ?07/14/2023 Start weight: ?233 lbs. Dose:500 mg with dinner, increased to 1000 mg twice a day -- Patient reports suppression of her appetite and increase in satiety since starting -- Patient reports diarrhea after starting metformin Topiramate Benefit: decreased hunger and cravings, soda is flat and off-taste SE: none Phentermine Benefit - decreased appetite, smaller portions SE: none Anti-Obesity Medications >Phentermine: No uncontrolled HTN, No CVD Hx or hx of seizure disorder. No MAOI inhibitor use. No drug abuse hx. Crcl > 15. >Topiramate/zonisamide: No seizure or kidney stone hx. Yes hx of migraines, Yes hx of poor sleep. Yes Child bearing age. >Qsymia: see above >Contrave: No contraindications. Could affect mood. No uncontrolled HTN or hx of seizure disorder. No MAOI inhibitor use. No opiate use. >Saxenda/Wegovy/Ozempic: Cost. Ins coverage? >Metformin: No contraindications or medication interactions. eGFR > 30. Estimated Creatinine Clearance: 154.1 mL/min (based on SCr of 0.65 mg/dL). PAST MEDICAL HISTORY Diagnosis Date Migraine with aura, with intractable migraine, so stated, with status migrainosus occular migraines as a teenager PCOS (polycystic ovarian syndrome) Current Outpatient Medications Medication Sig Dispense Refill topiramate (TOPAMAX) 25 mg tablet TAKE 1 TABLET BY MOUTH TWICE A DAY 180 tablet 0 metFORMIN (GLUCOPHAGE) 1,000 mg tablet Take 1 tablet by mouth two times a day with meals. 180 tablet 2 Phentermine HCl 37.5 mg tablet Take 1 tablet by mouth daily before breakfast for 90 days. 90 tablet0 Norethindrone, Contraceptive, 0.35 mg tablet Take 1 tablet by mouth once daily. 84 tablet 4 guaiFENesin (MUCINEX) 600 mg 12 hr tablet Take 2 tablets by mouth twice daily. 30 tablet 1 sodium chloride (AYR SALINE) 0.65 % drop Use 1 Drop in the nose every 2 hours as needed. 50 mL 1 benzocaine-menthol (CEPACOL) 15-2.6 mg lozg lozenge Take 1 Lozenge by mouth every 2 hours as needed. 18 Lozenge 1 fluticasone (FLONASE ALLERGY RELIEF) 50 mcg/actuation nasal spray Use 1 [place] in each nostril once daily. 1 Bottle 0 Omeprazole 40 mg capsule Take 1 capsule by mouth once daily. (Patient not taking: Reported on 01/03/2019 ) 30 capsule 0 No current facility-administered medications for this visit. OCCUPATION Works from home Current Contraception: Micronor Obesity ROS/ FHx GEN: Fatigue:yes GI: GERD:yes Symptoms of PCOS: yes NEURO: Migraines/LINDER: yes, occular migraines BP 110/70 Pulse (!) 122 Wt 189 lb 3.2 oz (85.8 kg) LMP 10/21/2023 BMI 32.48 kg/m [facility] data reviewed for past month. Resting HR 71-80. Exercise HR 122-125 Appointment on 07/14/2023 Component Date Value Ref Range Status Vitamin D 25 Hydroxy 07/14/2023 24.5 (L) 31.0 - 80.0 ng/mL Final Insulin 07/14/2023 25.0 3.0 - 25.0 mU/L Final Hemoglobin A1C 07/14/2023 5.2 4.3 - 5.6 % Final Estimated Average Glucose 07/14/2023 103 mg/dL Final WBC 07/14/2023 8.21 3.70 - 11.00 k/uL Final RBC 07/14/2023 4.59 3.90 - 5.20 m/uL Final Hemoglobin 07/14/2023 14.0 11.5 - 15.5 g/dL Final Hematocrit 07/14/2023 42.5 36.0 - 46.0 % Final MCV 07/14/2023 92.6 80.0 - 100.0 fL Final MCH 07/14/2023 30.5 26.0 - 34.0 pg Final MCHC 07/14/2023 32.9 30.5 - 36.0 g/dL Final RDW-CV 07/14/2023 12.3 11.5 - 15.0 % Final Platelet Count 07/14/2023 286 150 - 400 k/uL Final MPV 07/14/2023 10.2 9.0 - 12.7 fL Final Absolute nRBC 07/14/2023 <0.01 <0.01 k/uL Final Protein, Total 07/14/2023 7.3 6.3 - 8.0 g/dL Final Albumin 07/14/2023 4.5 3.9 - 4.9 g/dL Final Calcium, Total 07/14/2023 9.6 8.5 - 10.2 mg/dL Final Bilirubin, Total 07/14/2023 0.3 0.2 - 1.3 mg/dL Final Alkaline Phosphatase 07/14/2023 65 34 - 123 U/L Final AST 07/14/2023 15 13 - 35 U/L Final ALT 07/14/2023 25 7 - 38 U/L Final Glucose 07/14/2023 100 (H) 74 - 99 mg/dL Final BUN 07/14/2023 14 7 - 21 mg/dL Final Creatinine 07/14/2023 0.65 0.58 - 0.96 mg/dL Final Sodium 07/14/2023 136 136 - 144 mmol/L Final Potassium 07/14/2023 4.3 3.7 - 5.1 mmol/L Final Chloride 07/14/2023 101 97 - 105 mmol/L Final CO2 07/14/2023 22 22 - 30 mmol/L Final Anion Gap 07/14/2023 13 9 - 18 mmol/L Final Estimated Glomerular Filtration Ra* 07/14/2023 124 >=60 mL/min/1.73m Final Vitamin B12 07/14/2023 511 232 - 1,245 pg/mL Final Assessment/Plan: Millie Dela Cruz is a 28 year old yo with Class II obesity who presented today for follow up for supervised weight loss to treat PCOS and elevated LDL and prevent related co-morbidities. ASSESSMENT/PLAN: 1. PCOS (polycystic ovarian syndrome) - ICD9: 256.4, ICD10: E28.2 (primary diagnosis) - Whole food balanced protein low-carb nutrition - METFORMIN 500 MG TABLET - PHENTERMINE 37.5 MG TABLET - TOPIRAMATE 25 MG TABLET 2. Elevated LDL cholesterol level - ICD9: 272.0, ICD10: E78.00 - Whole food balanced protein low-carb nutrition - PHENTERMINE 37.5 MG TABLET - TOPIRAMATE 25 MG TABLET 3. Ocular migraine - ICD9: 346.80, ICD10: G43.109 - decreased number, only occurring with stress - TOPIRAMATE 25 MG TABLET 4. Class 2 obesity with body mass index (BMI) of 39.0 to 39.9 in adult, unspecified obesity type, unspecified whether serious comorbidity present - ICD9: 278.00, V85.39, ICD10: E66.9, Z68.39 Weight decreasing - METFORMIN 500 MG TABLET - 1 gm bid - PHENTERMINE 37.5 MG TABLET The patient is currently enrolled in a diet and exercise program The patient has no known history of contraindications The patient is free from drug or ETHO abuse The patient is not or and is aware not to become while using this medication OARS was reviewed. PDMP website checked and validated. All prescriptions have been APPROPRIATELY filled. No suspicious activity was identified. - TOPIRAMATE 25 MG TABLET twice a day Patient of childbearing age - POP - encouraged to increase activity and exercise with goal of 150-200 min/wk Prescription instructions reviewed with patient as applicable. Potential red flag symptoms discussed with the patient. Reviewed appropriate action plan to take ifred flag symptoms occur. Patient agreeable to treatment plan. Follow up in 3 months Leona Enriquez APRN.PERFORMANCE TESTER Advanced Education from the Obesity [employer] Medical Decision Making: Problems: Moderate: 1+ chronic illnesses with change Risk: Moderate: Drug management and Moderate risk from testing/treatment Medical Decision Making Level: 4 - Moderate documented in this encounterP[facility]11-09-2023 Instructions* Patient Instructions* Leona Enriquez APRN.CNP - 08/09/2023 2:00 PM EST Images from the original note were not included. PHENTERMINE -- Please take tablet or capsule as directed. May need to decrease dose or stop if uncontrolled BP or sustained elevated pulse. -- Please monitor your blood pressure (either purchase BP cuff, or go to pharmacy to check your BP at a local pharmacy). Please avoid any stimulants (in the form of caffeinated beverages like coffee,tea, sports drinks) and caution with decongestants. We will require an updated blood pressure and heart rate at follow up visits (this includes virtual visits). -- Please monitor for , if at any point you become please stop the medication. THIS IS A SUMMARY OF OUR DISCUSSION ABOUT THIS MEDICATION. PLEASE READ IT IS IMPORTANT FOR YOUR WEIGHT LOSS PLAN Per updated [place] state rules, initially, a one month supply of phentermine is prescribed. You will need to be seen every month for the first 3 months for follow-up and to assess effectiveness with a total 5% weight loss in that 3 month period. If the phentermine is effective for you, treatment with phentermine can continue with a one month supply of phentermine prescribed at a time with 2 refills. You, the patient, are responsible for making an appointment to see a provider within 12 weeks in order to get a refill of this medication. It is imperative that you get this (and future) phentermine prescriptions within 7 days as pharmacists will NOT refill prescriptions outside this 7 day window per State law. Phentermine can only be prescribed for a 3 month interval at a time. You are aware of the following statements per the [facility] pharmacy board rules. 1. Timely refills are required 2. Every 12 weeks office visits are required. 3. ALL prescriptions need to be filled within 7 days of the written prescription 4. Refills need to be done EVEN IF there is medication still available ? Phentermine (fen ter meen) What are the common names? Adipex-P, Ionamin Why is this medication prescribed? Phentermine was approved by the FDA in 1959 for short term weight loss. It works by decreasing appetite. Phentermine is absorbed by the body and travels to the appetite center of the brain. It works by helping you feel less hungry, less driven to eat, more satisfied with less food. I ve heard about fen-phen. Will phentermine affect my heart? The two drug combination fenfluramine/phentermine, usually called fen-phen, became popular in the early as a diet pill. However, it was withdrawn by the FDA in late 1996 after studies which showed that fenfluramine can cause fatal pulmonary hypertension and heart valve problems. Phentermine is not a combination medication and does not contain the compound fenfluramine. What special precautions should I follow? Before having phentermine prescribed, tell your doctor and pharmacist: If you have allergies to any component of phentermine If you are , plan to become , are breast-feeding, or if you become while taking phentermine What are the absolute contraindications? Stroke or Transient Ischemic Attacks Cardiac arrhythmias or Atrial fibrillation Coronary artery disease Seizure Disorder Uncontrolled blood pressure Angina Congestive Heart Failure Valvular Heart Disease or primary pulmonary hypertension Drug interactions. Use of monamine oxidase inhibitors (MAOI s) What are the side effects of phentermine? Immediately discontinue the medicine and seek medical help if you have severe symptoms such as chest pain, shortness of breath, feeling faint, ability to think clearly, eye pain or other visual symptoms: Palpitations (strong or rapid heartbeat) Difficulty sleeping or falling asleep Elevated blood pressure Dry mouth Anxiety or agitation Getting a stimulant/or hyper effect or jitteriness-(Usually goes away after a few days or weeks) Glaucoma In case of emergency/overdose In case of overdose, call your local poison control center at or call local emergency services at [phone]. What other information should I know? Keep all appointments with your doctor and the laboratory. Do not let anyone else take your medication. Phentermine is a controlled substance. It is FDA approved for up to 3 months. Prescriptions may be refilled only a limited number of times. Keep a written list of all of your prescription and nonprescription ([id number]) medicines, in addition to vitamins, minerals, or other dietary supplements. If you are taking the extended-release (long-acting) tablets, do not split, chew, or crush them tablet. There are some tablets that can be crushed and mixed with food Alcohol can make the side effects of phentermine worse How should I monitor while on this medication? Please check your blood pressure (BP) and resting pulse weekly (twice a week in the first 2 weeks).If the BP is over 140/90 (either one), or if the resting pulse is over 96 per minute (count for 10 seconds and multiply by 6), then stop the medication and call your doctor. Continue to improve your dietary and physical activity habits as the combination works best while on this medication. Start out by taking the medication in the morning at least 30 minutes prior to meals. If the effectseems to wear off by dinner time, try taking it later in the morning, but taking too late may result in trouble falling asleep. Be sure to eat regular meals. Less hunger does not make it appropriate to skip meals. Monitor your caffeine intake and use of decongestants as they may worsen the effects of phentermine Make sure to have an eye exam, including the pressure in your eyes (intra-ocular pressure), once a year. What should I do if I forget a dose? Skip the missed dose and continue your regular dosing schedule the next day. Do not take a double dose to make up for a missed one. Sources [facility] Consumer Medication Info: http://www.ncbi.nlm.nih.gov/pubmedhealth/EDO8873838/ AMA patient handouts: http://www.amaassn.org/ama1/pub/upload/mm/433/phrxsurgery.pdf Drugs.com: http://www.drugs.com/pro/phentermine.html - Whole food low-carb diet with 30 g of protein 3 times a day and 30 g of carbs at lunch and dinneronly. Meals - protein is a goal and carbohydrates are a limit. Snacks - all protein or more protein than carbs Use tracking log as a worksheet and bring with you to your next appointment. Protein - no carbs Egg 1 large - 6g Egg white 1 large 3.6g 3 oz is approximately the size of a deck of cards and equals 21 g protein Beef, Chicken, [place], Pork, [place] 1 oz 7g Fish, Tuna Fish 1 oz 7g Seafood (Crabmeat, Shrimp, Lobster) 1 oz 6g Protein shakes (read labels) Premier Protein or generic [employer] Equate, Aldi Elevate, Me[employer] High Performance- 30g protein &1g carb - meal replacement Premier Protein plant protein powder - 25 gm protein, 0 suger/2 carb Vanilla and chocolate (not a meal replacement) Fairlife 30 gram protein - 30g protein & 3g carb BOOST Glucose Control Max 30g Protein Nutritional Drink - 30g protein & 1 carb - meal replacement Slimfast High Protein - 20g protein & 1g carb Ensure Max Protein Nutrition Shake 30g protein & 2 carb Protein AND carbs Beef/Leisenring Jerky 1 oz dried 10-15g protein - check carb count, can be high if sugar added Slim Stewart - 6 gm protein and 4 net carb Great Value original turkey sausage sticks - 7 gm protein and 2 gm carb Imitation Crab Meat 1 oz - 2g protein & 4g carb Milk, skim 2% or 1% 8 oz - 8g protein & 12g carb Guamanian yogurt Full Fat Guamanian Yogurt 1 cup - 20.4g protein & 9.1g carb 2% Guamanian Yogurt 1 cup - 22.7g protein & 9.1g carb 0% (fat-free) Guamanian Yogurt - 1 cup 24g protein & 9.3g carb :ratio, KETO Friendly Dairy Snack 1 single svg - 15g protein & 2g carb :ratio Protein 1 single svg - 25g protein & 8g carb Dannon Light + Fit 1 single csvg - 12g protein & 9g carb Two Good Lowfat [place]ian Yogurt, [place], Lower Sugar - 12g protein & 2g carb [place] Triple Zero Guamanian Nonfat Yogurt 1 single svg - 15g protein & 7g carb Cheese each oz Brie 5.9g protein & 0.1g carb Cheddar Cheese 7g protein & 0.4g carb Mozzarella Cheese 6.3g protein & 0.6g carb Brian Cheese 6.7g protein & 0.7g carb Parmesan Cheese 10g protein & 0.9g carb Cream Cheese 1.7g protein & 1.2g carb Feta 4g protein & 1.2g carb Chadian Cheese 7.6g protein & 1.5g carb Meier s Low Fat Cottage Cheese 1/2cup 12g protein & 4g carb Legumes Lentils cup 9g protein & 20g carb Veronica beans cup 7g protein & 20g carb Kidney, Black, [place]hol[place], Cannellini beans cup 8g protein & 20g carb Soybeans 1/2 c 14g protein & 8.5g carb Peanut butter, natural 2 Tbsp 7-8g protein & 4g net carbs, 190 calories [place] milk, unsweetened 8 oz 1g protein & 2g carb Soy milk 8 oz 3.5g protein & 1.6g carb Tofu 1/2 cup 10g protein & 2.3g carb Nuts and Seeds per oz Pumpkin Seeds - 6.9g protein & 5g carb Almonds - 5.9g protein & 6.1g carb Gentry Seeds - 5.8g protein & 5.6g carb Pistachios - 5.8g protein & 7.8g carb Cashews - 5.1g protein & 9.2g carb Walnuts - 4.3g protein & 3.8g carb Hazelnuts - 4.2g protein & 4.7g carb [place] Nuts - 4.0g protein & 3.4g carb Pecans - 2.6g protein & 3.9g carb Peanuts - 7g protein & 4.6g carb 30 High Protein Snack Ideas 1. Jerky 2. [place] mix without or minimal dried fruit 3. Leisen[place] roll-ups 4. Guamanian yogurt 5. Veggies and yogurt dip 6. Tuna 7. Hard-boiled eggs 8. Peanut butter celery sticks 9. No-bake energy bites 10. Cheese slices/ Cheese Stick 11. Handful of almonds 12. Roasted chickpeas 13. Hummus and veggies 14. Cottage Cheese 15. Celery/fruit with peanut butter 16. Beef sticks (Grass-fed, natural ingredients) 17. Protein bars 18. Canned Barry 19. Abhay pudding 20. Homemade granola - rolled oats, nuts, and a little sweetener - 1/4 cup serving 21. Pumpkin seeds 22. Nut butter 23. Protein shakes 24. Edamame 25. Avocado and chicken salad 26. Fruit and nut bars - natural ingredients without added sugar. 27. Lentil salad 28. Overnight oatmeal 29. Egg muffins 30. Leftover protein or lunch meat <15 gram carb fruit options Berries have the lowest sugar content 1/2 cup diced honeydew melon - 8 carbs 1/2 cup diced watermelon - 6 carbs One half medium grapefruit - 10.5 carbs 1 medium orange -15.5 carbs 1 medium peach -14.5 carbs 1/2 cup fresh cranberries - 6.5 carbs 1 medium plum -7.5 carbs 1/2 cup raspberries -7.5 carbs 1 medium Whitney -9 carbs 1/2 cup fresh pineapple -11 carbs 1 medium nectarine - 15 carbs 1/2 cup blueberries - 11 carbs - may actually help you lose weight 1 medium kiwi without skin - 11 carbs 1/2 cup fresh cherries -11 carbs 1 medium tangerine -12 carbs 1/2 cup sliced gulshan -14 carbs 1/2 medium banana 1/2 c grapes 1/2 medium apple - 12.5 carbs 1/2 c strawberries - 12.7 carbs 5 (FIVE) gram carb vegetable options 1 cup raw OR cup cooked: Asparagus Cabbage Spinach Peppers Green beans Carrots Tomato Bailey [place] sprouts Cauliflower Lettuce Snap peas Broccoli Eggplant Zucchini Turnips Spaghetti squash Brussel sprouts 15 gram carb vegetable options cup cooked green peas cup cooked corn or hominy corn on the cob, large (5 oz) cup cooked sweet potato, plain cup cooked potato, plain 1 small potato or sweet potato 1 cup winter squash (pumpkin, acorn, butternut) 1 cup marinara or pasta sauce - check label cup tomato juice cup tomato puree Beans, Seeds, Nuts cup cooked beans (kidney, nickerson, red, green, etc.) cup cooked lentils cup baked beans 4 tablespoons nut butter documented in this encounterP[facility]11-09-[facility]23 History of Present illness Narrative* Leona Enriquez APRN.CNP - 08/09/2023 1:30 PM EST Some documentation from previous visit of 07/11/2023 was copied and pasted, documentation has been reviewed and edited as necessary for today's visit. Patient Summary: Millie is a 27 year old Female who presents for follow-up evaluation of obesity/weight management to treat PCOS, elevated LDL level and prevent related co-morbidities. In our previous visits we have discussed lifestyle intervention including a nutrition recommendations and physical activity optimization. Her last office visit was 1 month ago. Assessment/plan from last visit: Metformin - 1 gm twice a day but having some diarrhea since final increase [facility] nutrition consultation today Interval History Awake - 9-10 am coffee with 2 T milk each cup and has 2-3 cups over 1 hour. [place] - 12-12:30 - 30 gm protein shake S - 3-4 cutie oranges or 2 HB eggs L - 4 pm - grilled chicken and frozen mixed veg S - none occasional protein bar [employer] 16 gm protein, 5 carb D - 8:30 usually Hello[employer] dinners S - not normally. 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 Dose:500 mg with dinner, increased to 1000 mg twice a day -- Patient reports suppression of her appetite and increase in satiety since starting -- Patient reports diarrhea after starting metformin Anti-Obesity Medications >Phentermine: No uncontrolled HTN, No CVD Hx or hx of seizure disorder. No MAOI inhibitor use. No drug abuse hx. Crcl > 15. >Topiramate/zonisamide: No seizure or kidney stone hx. Yes hx of migraines, Yes hx of poor sleep. Yes Child bearing age. >Qsymia: see above >Contrave: No contraindications. Could affect mood. No uncontrolled HTN or hx of seizure disorder. No MAOI inhibitor use. No opiate use. >Saxenda/Wegovy/Ozempic: Cost. Ins coverage? >Metformin: No contraindications or medication interactions. eGFR > 30. Estimated Creatinine Clearance: 154.1 mL/min (based on SCr of 0.65 mg/dL). PAST MEDICAL HISTORY Diagnosis Date Migraine with aura, with intractable migraine, so stated, with status migrainosus occular migraines as a teenager PCOS (polycystic ovarian syndrome) Current Outpatient Medications Medication Sig Dispense Refill metFORMIN (GLUCOPHAGE) 500 mg tablet Take 2 tablets by mouth two times a day with meals. 120 tablet2 guaiFENesin (MUCINEX) 600 mg 12 hr tablet Take 2 tablets by mouth twice daily. 30 tablet 1 sodium chloride (AYR SALINE) 0.65 % drop Use 1 Drop in the nose every 2 hours as needed. 50 mL 1 benzocaine-menthol (CEPACOL) 15-2.6 mg lozg lozenge Take 1 Lozenge by mouth every 2 hours as needed. 18 Lozenge 1 fluticasone (FLONASE ALLERGY RELIEF) 50 mcg/actuation nasal spray Use 1 [place] in each nostril once daily. 1 Bottle 0 pseudoephedrine (SUDAFED) 30 mg tablet Take 1 tablet by mouth every 4 hours as needed. 30 tablet 0 Omeprazole 40 mg capsule Take 1 capsule by mouth once daily. (Patient not taking: Reported on 01/03/2019 ) 30 capsule 0 No current facility-administered medications for this visit. OCCUPATION Works from home [id number] Current Contraception: none Obesity ROS/ FHx GEN: Fatigue:yes GI: GERD:yes Symptoms of PCOS: yes NEURO: Migraines/LINDER: yes, occular migraines BP 118/78 Wt 226 lb (102.5 kg) LMP 07/20/2023 BMI 38.79 kg/m Appointment on 07/14/2023 Component Date Value Ref Range Status Vitamin D 25 Hydroxy 07/14/2023 24.5 (L) 31.0 - 80.0 ng/mL Final Insulin 07/14/2023 25.0 3.0 - 25.0 mU/L Final Hemoglobin A1C 07/14/2023 5.2 4.3 - 5.6 % Final Estimated Average Glucose 07/14/2023 103 mg/dL Final WBC 07/14/2023 8.21 3.70 - 11.00 k/uL Final RBC 07/14/2023 4.59 3.90 - 5.20 m/uL Final Hemoglobin 07/14/2023 14.0 11.5 - 15.5 g/dL Final Hematocrit 07/14/2023 42.5 36.0 - 46.0 % Final MCV 07/14/2023 92.6 80.0 - 100.0 fL Final MCH 07/14/2023 30.5 26.0 - 34.0 pg Final MCHC 07/14/2023 32.9 30.5 - 36.0 g/dL Final RDW-CV 07/14/2023 12.3 11.5 - 15.0 % Final Platelet Count 07/14/2023 286 150 - 400 k/uL Final MPV 07/14/2023 10.2 9.0 - 12.7 fL Final Absolute nRBC 07/14/2023 <0.01 <0.01 k/uL Final Protein, Total 07/14/2023 7.3 6.3 - 8.0 g/dL Final Albumin 07/14/2023 4.5 3.9 - 4.9 g/dL Final Calcium, Total 07/14/2023 9.6 8.5 - 10.2 mg/dL Final Bilirubin, Total 07/14/2023 0.3 0.2 - 1.3 mg/dL Final Alkaline Phosphatase 07/14/2023 65 34 - 123 U/L Final AST 07/14/2023 15 13 - 35 U/L Final ALT 07/14/2023 25 7 - 38 U/L Final Glucose 07/14/2023 100 (H) 74 - 99 mg/dL Final BUN 07/14/2023 14 7 - 21 mg/dL Final Creatinine 07/14/2023 0.65 0.58 - 0.96 mg/dL Final Sodium 07/14/2023 136 136 - 144 mmol/L Final Potassium 07/14/2023 4.3 3.7 - 5.1 mmol/L Final Chloride 07/14/2023 101 97 - 105 mmol/L Final CO2 07/14/2023 22 22 - 30 mmol/L Final Anion Gap 07/14/2023 13 9 - 18 mmol/L Final Estimated Glomerular Filtration Ra* 07/14/2023 124 >=60 mL/min/1.73m Final Vitamin B12 07/14/2023 511 232 - 1,245 pg/mL Final Assessment/Plan: Millie Dela Cruz is a 27 year old yo with Class II obesity who presented today for follow up for supervised weight loss to treat PCOS and elevated LDL and prevent related co-morbidities. ASSESSMENT/PLAN: 1. PCOS (polycystic ovarian syndrome) - ICD9: 256.4, ICD10: E28.2 (primary diagnosis) - Whole food balanced protein low-carb nutrition - METFORMIN 500 MG TABLET 2. Elevated LDL cholesterol level - ICD9: 272.0, ICD10: E78.00 - Whole food balanced protein low-carb nutrition 3. Class 2 obesity with body mass index (BMI) of 39.0 to 39.9 in adult, unspecified obesity type, unspecified whether serious comorbidity present - ICD9: 278.00, V85.39, ICD10: E66.9, Z68.39 Weight decreasing - METFORMIN 500 MG TABLET - discussed decreasing dose until diarrhea resolves before increasing to optimal dose - PHENTERMINE 15 MG CAPSULE Phentermine. Risk/benefits discussed at length including potential side effects of increased anxiety, insomnia, increased heart rate, and increased blood pressure. I have asked the patient to monitorblood pressure and avoid any stimulants (in the form of caffeinated beverages like coffee, tea, sports drinks) initially. Patient denies history of arrhythmias, coronary artery disease (atherosclerosis), heart failure, pulmonary hypertension, stroke, valvular heart disease (prolapse, regurgitation,stenosis). The patient is currently enrolled in a diet and exercise program The patient has no known history of contraindications The patient is free from drug or ETHO abuse The patient is not or and is aware not to become while using this medication [place] was reviewed. PDMP website checked and validated. All prescriptions have been APPROPRIATELY filled. No suspicious activity was identified. - encouraged to increase activity and exercise Prescription instructions reviewed with patient as applicable. Potential red flag symptoms discussed with the patient. Reviewed appropriate action plan to take ifred flag symptoms occur. Patient agreeable to treatment plan. Follow up in 2 months Leona Enriquez APRN.PERFORMANCE TESTER Advanced Education from the Obesity Medicine Association Medical Decision Making: Problems: Moderate: 1+ chronic illnesses with change Risk: Moderate: Drug management and Moderate risk from testing/treatment Medical Decision Making Level: 4 - Moderate documented in this encounterP[facility]10-24-[facility]23 Miscellaneous Notes* Telephone Encounter - Zahra Baez RN - 07/24/2023 10:59 AM EDT [facility] or [facility]? documented in this encounterP[facility]10-11-[facility]23 History of Present illness Narrative* Leona Enriquez APRN.CNP - 07/11/2023 1:00 PM EDT Images from the original note were not included. Patient Summary: Millie Dela Cruz is a 27 year old female with obesity who presents for an initial evaluation of overweight/obesity to treat PCOS, elevated LDL level and prevent co-morbidities and is interested in combination of behavioral and pharmacological. Motivation for seeking treatment for the disease of overweight/obesity : healthy Goal weight: 150 Lowest recall weight: 150 Highest recall weight: 233 lb Patient identified barriers to weight loss: fatigue, loves fast food Weight History: She reports a strong family history of obesity and childhood weight gain but normal weight until graduating . She states her weight gain is related to the following factors, including reduced physical activity and consumption of unhealthy foods. Gained sacha when started working from home 3 yearsago. - Last Wt 07/11/23 : 233 lb (105.7 kg) 5% weight loss = 221 lbs, 10% weight loss = 209 lbs WEIGHT GRAPH: Diet/Nutrition overview: Awake - 9-10 am coffee with 2 T milk each cup and has 2-3 cups over 2 hours. Sarts work at 1045 from home B - skip S - skip L - 4 pm - 10 pc [employer], [employer] and [employer]ken and medium Coke S - none D - 8:30 usually HelloFresh burgers, chicken and potatoes, tacos, pasta. S - not normally. Chips occasionally Fluids - coffee with a little milk, water, sweet tea with sugar, pop Bedtime - [id number] Quality of diet: 24hr recall suggests unhealthy diet. Characterization of diet:Structured, excessive cravings, increased consumption of sugar sweetened beverages, and skip meals. Laminated [employer] of impaired eating habits:excessive hunger and lack of satiety specifically when eating unhealthy foods. Eating Disorder no Cravings: baked sweets and Coke but tries not to keep in house Sleep: Duration: 8-9 hours never feels rested. Does not wake with headache. Wakes up 3- 4 times a night dueto pain in hip MARSHAL NO ; CPAP NO Stress: Stress:yes , Cause:Financial, getting 08/2024 Obesity Related Comorbidities: Prior Weight Loss Surgery:No PAST MEDICAL HISTORY Diagnosis Date Migraine with aura, with intractable migraine, so stated, with status migrainosus occular migraines as a teenager PCOS (polycystic ovarian syndrome) PAST SURGICAL HISTORY Procedure Laterality Date REFRACTIVE SURGERY OD (RIGHT EYE) 2019 FAMILY HISTORY Problem Relation Age of Onset other (polycystic ovary syndrome) Mother other (cervical dysplasia) Mother Obesity Mother Obesity Father Obesity Sister Obesity Brother Breast Cancer Maternal Grandmother Obesity Paternal Grandmother Social History Tobacco Use Smoking status: Every Day Types: Pipe Smokeless tobacco: Never Vaping Use Vaping Use: Never used Substance Use Topics Alcohol use: Yes Comment: occasional Drug use: Not Currently Medications: none Weight Promoting Medications: none Diet/weight loss History: Past weight loss attempts? 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 Caloric restriction, Keto, MyFitnessPal, and Weight watchers Exercise: Regular exercise: no Strength/resistance exercise:no Barriers to regular exercise? no Work-related activity:Sedentary.works from home Gym Membership: yes Activity Tracker: yes 3-4000 steps/day OCCUPATION Works from home [id number] Current Contraception: none Obesity ROS/ FHx GEN: Fatigue:yes CV: h/o palpitations/cardiac arrhythmia, Chest pain: no HTN: no PULM: Asthma:no GI: GERD:yes; Gallstones:no ; Fatty liver disease:no Pancreatitis: no MSK: Joint Pain:no : Nephrolithiasis: no Symptoms of PCOS: yes NEURO: Migraines/LINDER: yes, occular migraines ; H/o seizures: no Glaucoma:no; Cataracts no Symptoms of or History of pseudotumor cerebri:no Family or personal History of MEN2 or Medullary thyroid cancer: no PE BP 122/84 Pulse 96 Ht 5' 4 (1.626 m) Wt 233 lb (105.7 kg) LMP 06/22/2023 SpO2 97% BMI 39.99 kg/m Waist Circumference: 44.75 inches Neck Circumference: 15.75 inches GENERAL: Female in NAD. Mixed central and gluteofemoral adiposity. SKIN: acanthosis nigricans yes , Skin tags: yes Hirsutism: yes to abdomen HEENT: PERRL, No supraclavicular adiposity. No dorsal adiposity. RESPIRATORY: CBTA CARDIAC: RRR ABDOMEN: Protuberant ; EXTREMITIES: peripheral edema: no Results: reviewed with the patient No visits with results within 3 Month(s) from this visit. Latest known visit with results is: Appointment on 02/22/2022 Component Date Value Ref Range Status TSH 02/22/2022 1.370 0.270 - 4.200 mIU/L Final Prolactin 02/22/2022 12.5 4.5 - 26.8 ng/mL Final DHEA-S 02/22/2022 389.3 (H) 98.8 - 340.0 ug/dL Final Testosterone 02/22/2022 53 (H) <40 ng/dL Final HYDROXYPROGESTERONE 02/22/2022 42.60 <=206.00 ng/dL Final Cholesterol, Total 02/22/2022 219 (H) <200 mg/dL Final Triglyceride 02/22/2022 67 <150 mg/dL Final HDL Cholesterol 02/22/2022 50 >39 mg/dL Final Non HDL Cholesterol 02/22/2022 169 (H) <130 mg/dL Final Fasting Time 02/22/2022 10 hrs Final VLDL Cholesterol 02/22/2022 13 <30 mg/dL Final TC:HDL Ratio 02/22/2022 4.38 <5.10 Final LDL Cholesterol 02/22/2022 156 (H) <100 mg/dL Final LDL:HDL Ratio 02/22/2022 3.12 (H) <2.54 Final FSH 02/22/2022 5.5 See comment mIU/mL Final LH 02/22/2022 3.4 See comment mIU/mL Final Hemoglobin A1C 02/22/2022 5.6 4.3 - 5.6 % Final Estimated Average Glucose 02/22/2022 114 mg/dL Final Glucose, Fasting 02/22/2022 87 74 - 99 mg/dL Final Estradiol 17B 02/22/2022 49 pg/mL Final Impression: Millie Dela Cruz is a 27 year old Female with Class II obesity (Body mass index is 39.99 kg/m .) who has adult onset obesity with several periods of weight loss followed by weight gain . The causes of her obesity are multifactorial, biological, psychological and social and environmental. Specific factors include a genetic component related to a strong family of obesity, increased consumption of high calorie/process foods, and suboptimal physical activity. She has no significant weight-related medical comorbidities which increase her cardiovascular mortality risk. There are additional metabolic obesity complications including PCOS and elevated LDL. Other medical conditions as above. Regarding her lifestyle, as above, she has a few behavioral contributors ; her physical activity issuboptimal. Overall, it is clear that her quality of life is moderately compromised by her weight. It is likelya combination of weight loss therapies will be needed. She appears motivated today. ASSESSMENT/PLAN: 1. PCOS (polycystic ovarian syndrome) - ICD9: 256.4, ICD10: E28.2 (primary diagnosis) - discussed with pt - review of PCOS with signs and symptoms. Increased risk of DMT2, CAD, infertility. Treatment discussed: weight loss to restore ovulatory cycles and reduce androgen concentrations, exercise, cyclic medroxyprogesterone to induce menses. Metformin discussed - explained that it is not considered a first-line treatment as it does not change outcomes but that it will decrease HgbA1c although weight loss will do the same. - benefits of weight loss discussed - INSULIN ASSAY BLOOD - HGB A1C - CONSULT TO NUTRITION THERAPY - METFORMIN 500 MG TABLET 2. Elevated LDL cholesterol level - ICD9: 272.0, ICD10: E78.00 - benefits of weight loss discussed 3. Malaise and fatigue - ICD9: 780.79, ICD10: R53.81, R53.83 - VITAMIN D 25 HYDROXY TSH WNL 4. History of non anemic vitamin B12 deficiency - ICD9: V12.1, ICD10: Z86.39 - VITAMIN B12 BLOOD 5. Screening for diabetes mellitus - ICD9: V77.1, ICD10: Z13.1 - INSULIN ASSAY BLOOD - HGB A1C 6. Encounter for vitamin deficiency screening - ICD9: V77.99, ICD10: Z13.21 - VITAMIN D 25 HYDROXY 7. Screening for deficiency anemia - ICD9: V78.1, ICD10: Z13.0 - CBC - COMP METABOLIC PANEL 8. 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 - VITAMIN D 25 HYDROXY - INSULIN ASSAY BLOOD - HGB A1C - CBC - COMP METABOLIC PANEL - CONSULT TO NUTRITION THERAPY [facility] Whole food balanced protein low-carb nutrition - METFORMIN 500 MG TABLET Agreeable to begin Metformin 500 mg with dinner daily x 1 week. If tolerating will increase to 2 tablets with dinner daily. We discussed common side effects of this medication including nausea, changes in bowel habits, abdominal discomfort, and flatulence. Discussed taking it with food and complication of lactic acidosis and signs/symptoms and medication handout given. Further instructed that if he experiences malaise, muscle aches, difficulty breathing, or severe abdominal pain to seek immediate medical attention. -- We discussed several strategies to track food intake and increase mindfulness around eating while will decrease calorie intake. She was counseled on the following: Eating primarily whole foods. Limit carbs, especially processed carbs. Do not drink your calories 30 grams of protein for breakfast decreases your hunger during the day by up to 40 % Premier Protein or generic 30 gm protein 1 gm sugar Walk for 15 minutes immediately a meal. -- Encouraged the patient to improve her physical activity. Although cardiovascular exercise is most beneficial for weight loss initially, we discussed healthy muscle from a combination of resistancetraining and cardiovascular exercise is the best senior living plan. An overall goal of 150-200 minutesper week of exercise has been effective in weight loss and maintenance. -- Reviewed that monitoring weight daily and food intake can have a positive impact on overall weight loss and maintenance of weight loss. Activity tracking can be used to stay on target for exercisehowever should not be used to reward oneself She understands that there can be limitations of pharmacotherapy due to contraindications, side effects and cost. Patient was told to contact her insurance company to see what AOMs and supervised behavioral medical appointments are currently covered. Patient understands she will have more success when following a healthy lifestyle. We reviewed continued use of online tracking of daily weights, food journal and if desired physical activity. We reviewed that during management she is to report any concerning side effects of any pharmacotherapy she is placed on. She understands that she will need routine follow up in the office. Prior to any virtual visits in the future she will need to check her Blood pressure, weight, and pulse. -- follow-up visit in 4 weeks for management of above interventions Leona Enriquez APRN.CNP Advanced Education from the Obesity Medicine Association I spent a total of 75 minutes on the date of the service which included preparing to see the patient, [id number] patient care, completing clinical documentation, obtaining and/or reviewing separately obtained history, performing a medically appropriate examination, counseling and educating the pat ient/family/caregiver, and ordering medications, tests, or procedures. documented in this encounterPomerene Hospital10-11-2023 Instructions* Patient Instructions* Leona Enriquez APRN.CNP - 07/11/2023 7:54 AM EDT Weight Management: You have taken the initiative to become a healthier version of yourself and to decrease the risks that come with the diagnosis of obesity or being overweight. We are happy to help you along this journey but know this is a lifetime commitment to yourself. Losing just 3-10 % of your body weight can decrease your risks of many other serious diseases like diabetes, heart disease, osteoarthritis, hypertension, cancer and so many others. During this time you will have triumphs, setbacks and plateaus-your body will fight against you but we are here to give you the tools and the resources to continue to reach your goals. We recommend during this time that you track your weight daily or at least five times per week as well as tracking your nutrition. You may track your activity but do not use hitting your fitness goals as a reward system as this can derail your success. We recommend weekly physical activity of 150-200 min/week-although physical exercise can help with maintaining weight loss it adds only a little benefit for senior living weight loss success. However, exercise can have many other benefits including improving mental health and cardiovascular health. Do not feel overwhelmed- we will discuss this moreat your visits. Our time will be limited with each visit but we will try to touch on factors that are important to you and to your overall goals. We will try to set a goal at the end of each visit and then decide onwhat we want to accomplish with your upcoming visits. On your After Visit Summary (AVS), we will provide you with information that may be useful during this journey so please remember to read the information given. Check your AVS a few days after your appointment because we may have added more information specifically for you. Remember that if you are placed on medications, they are tools that can help you succeed but you must put in the work. Your nutrition will be the main factor. There are medications that work well forsome and not for others- so it may take time to find the right combination for your body's needs. Please remember that factors such as other health co-morbidities one might have, as well as insurance coverage, will play a factor in determining which medications you can take. Most of the newer medications that are all the craze ,injectables, may not be covered or will only be covered if you fail months of oral medications- so please be patient with the process. It would be beneficial for you to determine what your insurance covers as far as Anti-Obesity Medications (AOMs), Nutritional Counseling, behavioral intervention and weight loss surgery. Please call your health insurance prior to your first appointment and write down coverage for each of those therapies. Most importantly, remember that ultimately our goal is to help you get to a healthier weight which will decrease your overall health risks. We will work together as a team and try to reach your personalized goals as well. We appreciate that you have entrusted us with your health and know that we are committed to this process with you. Obesity Obesity is a disease that affects nearly one-third of the adult [place] population (approximately 60 million). The number of overweight and obese Americans has continued to increase since 1960, a trend that is not slowing down. Today, 64.5 percent of adult Americans (about 127 million) are categorized as being overweight or obese. Each year, obesity causes at least 300,000 excess deaths in the [place] and healthcare costs of [place] adults with obesity amount to approximately $100 billion. (AOA) Obesity is a complex, multi-factorial chronic disease involving: Environmental (social and cultural) The tendency toward obesity is a result of our environment: lack of physical activity along with high-calorie, low-cost foods. Home, work, school, and even the community can inhibit a healthy lifestyle. Genetic (Hereditary plays a large role in determining how susceptible people are to overweight and obesity). Genes also influence how the body wheat calories for energy and stores fat. Physiologic, metabolic, behavioral (eating too many calories while not getting enough exercise) andpsychological components. It is the second leading cause of preventable in the [place] Behavioral changes brought on by economic development, modernization and urbanization have been linked to therise in global obesity. Calculating BMI Body Mass Index (BMI) is a measurement tool used to determine excess body weight. Overweight is defined as a BMI of 25 or more, obesity is 30 or more, and severe obesity is 40 or more. You can visit www.nhlbi.nih.gov to estimate your BMI. Obesity Related Health Conditions The morbidity and mortality risk from being overweight is proportional to its degree. Individuals with morbid obesity, therefore, have the highest risk for developing numerous illnesses that often reduce mobility and quality of life due to their excess weight. In particular, type 2 diabetes, gallbladder disease and osteoarthritis have been found to increase concurrently with higher BMI. Prematuredeath, a 20-year shorter life span, has also been found in individuals with morbid obesity. All of the systems that make the body function are affected by morbid obesity. Type 2 diabetes Gallbladder disease and gallstones Liver disease Osteoarthritis, a disease in which the joints deteriorate. This is possibly the result of excess weight on the joints. Gout, another disease affecting the joints Pulmonary (breathing) problems, including sleep apnea in which a person can stop breathing for a short time during sleep Reproductive problems in women, including menstrual irregularities and infertility Gastroesophageal reflux/heartburn Hypertension Heart Disease Depression Psychological disorders/social impairments Urinary Stress Incontinence Obesity is also linked to higher rates of certain types of cancer. Obese men are more likely than non-obese men to from cancer of the colon, rectum, or prostate. Obese women are more likely than non-obese women to from cancer of the gallbladder, breast, uterus, cervix, or ovaries [email or web address] Sincerely, Vicky Shabazz MD, LE & Leona Enriquez CNP Nutrition - Eat primarily whole foods. Limit carbs, especially processed carbs. - Do not drink your calories - 30 grams of protein for breakfast decreases your hunger during the day by up to 40 % Premier Protein or generic 30 gm protein 1 gm sugar - Walk for 15 minutes immediately a meal. METFORMIN Dosing -- Begin Metformin 500 mg with dinner daily x 1 week. If you are experiencing any GI side effects, do not increase dose for 1-4 weeks. If tolerating, you can increase to 2 tablets with dinner daily. Taking the medication with food will help. -- if you experience any GI upset (Nausea, diarrhea, bloating, gas) you can go back to 1 tablet or hold the medication until it resolves. Once you are tolerating the medication you can try increasingit again. -- we can discuss increasing the dose further at your follow up visit. -- Metformin can interfere with the absorption of B12 in your food, please add a B12 1,000-2,400 mcg supplement and I suggest having it checked every 1-2 years Using Metformin for weight loss: Metformin helps to lower blood glucose levels by reducing the amount of glucose produced and released by the liver, and by increasing insulin sensitivity. It has now been proven to prevent or delay diabetes. Metformin and Type 2 Diabetes Prevention Diabetes Spectrum (diabetesjournals.org) Large cohort studies have shown weight loss benefits associated with metformin therapy. Emerging evidence suggests that metformin-associated weight loss is due to modulation of hypothalamic appetite-regulatory centers, alteration in the gut microbiome, and reversal of consequences of aging. Metformin is also being explored in the management of obesity s sequelae such as hepatic steatosis, obstructive sleep apnea and osteoarthritis. Effectiveness of metformin on weight loss in non-diabetic individuals with obesity - PubMed (nih.gov) Is metformin a wonder drug? - [facility] Common side effects of this medication include nausea, changes in bowel habits, abdominal discomfort, and flatulence. Taking the medication with food will help. Side effects also typically get betterwith time. Rarely, a severe side effect called lactic acidosis can occur. If you experience malaise, muscle aches, difficulty breathing, or severe abdominal pain, please seek immediate medical attention. Metformin: Patient drug information Warning Rarely, metformin may cause too much lactic acid in the blood (lactic acidosis). The risk is higherin people who have kidney problems, liver problems, heart failure, use alcohol, or take other drugslike topiramate. The risk is also higher in people who are 65 or older and in people who are havingsurgery, an exam or test with contrast, or other procedures. If lactic acidosis happens, it can lead to other health problems and can be deadly. Kidney tests may be done while taking this drug. Do not take this drug if you have a very bad infection, low oxygen, or a lot of fluid loss (dehydration). Call your doctor right away if you have signs of too much lactic acid in the blood (lactic acidosis) like fast breathing, fast or slow heartbeat, a heartbeat that does not feel normal, very bad upsetstomach or throwing up, feeling very sleepy, shortness of breath, feeling very tired or weak, very bad dizziness, feeling cold, or muscle pain or cramps. What is this drug used for? It is used to lower blood sugar in patients with high blood sugar (diabetes), treatment for PCOS, What do I need to tell my doctor BEFORE I take this drug? If you are allergic to this drug; any part of this drug; or any other drugs, foods, or substances. Tell your doctor about the allergy and what signs you had. If you have any of these health problems: Acidic blood problem, kidney disease, or liver disease. If you have had a recent heart attack or stroke. If you are not able to eat or drink like normal, including before certain procedures or surgery. If you are having an exam or test with contrast or have had one within the past 48 hours, talk withyour doctor. This is not a list of all drugs or health problems that interact with this drug. Tell your doctor and pharmacist about all of your drugs (prescription or OTC, natural products, vitamins) and health problems. You must check to make sure that it is safe for you to take this drug with all of your drugs and health problems. Do not start, stop, or change the dose of any drug withoutchecking with your doctor. What are some things I need to know or do while I take this drug? All products: Tell all of your health care providers that you take this drug. This includes your doctors, nurses,pharmacists, and dentists. Talk with your doctor before you drink alcohol. Do not drive if your blood sugar has been low. There is a greater chance of you having a crash. Check your blood sugar as you have been told by your doctor. Have blood work checked as you have been told by the doctor. Talk with the doctor. It may be harder to control blood sugar during times of stress such as fever, infection, injury, orsurgery. A change in physical activity, exercise, or diet may also affect blood sugar. Follow the diet and workout plan that your doctor told you about. If diarrhea happens or you are throwing up, call your doctor. You will need to drink more fluids tokeep from losing too much fluid. Be careful in hot weather or while being active. Drink lots of fluids to stop fluid loss. Long-term treatment with metformin may lead to low vitamin B-12 levels. If you have ever had low vitamin B-12 levels, talk with your doctor. If you are 65 or older, use this drug with care. You could have more side effects. There is a chance of in people of childbearing age who have not been ovulating. If you want to avoid , use control while taking this drug. Tell your doctor if you are , plan on getting , or are breast- feeding. You will need to talk about the benefits and risks to you and the baby. What are some side effects that I need to call my doctor about right away? WARNING/CAUTION: Even though it may be rare, some people may have very bad and sometimes deadly side effects when taking a drug. Tell your doctor or get medical help right away if you have any of thefollowing signs or symptoms that may be related to a very bad side effect: Signs of an allergic reaction, like rash; hives; itching; red, swollen, blistered, or peeling skin with or without fever; wheezing; tightness in the chest or throat; trouble breathing, swallowing, ortalking; unusual hoarseness; or swelling of the mouth, face, lips, tongue, or throat. It is common to have stomach problems like upset stomach, throwing up, or diarrhea when you start taking this drug. If you have stomach problems later during treatment, call your doctor right away. This may be a sign of an acid health problem in the blood (lactic acidosis). Low blood sugar can happen. The chance may be raised when this drug is used with other drugs for diabetes. Signs may be dizziness, headache, feeling sleepy or weak, shaking, fast heartbeat, confusion, hunger, or sweating. Call your doctor right away if you have any of these signs. Follow what you have been told to do for low blood sugar. This may include taking glucose tablets, liquid glucose, or some fruit juices. What are some other side effects of this drug? All drugs may cause side effects. However, many people have no side effects or only have minor sideeffects. Call your doctor or get medical help if any of these side effects or any other side effects bother you or do not go away: Stomach pain or heartburn. Gas. Diarrhea, upset stomach, or throwing up. Feeling tired or weak. Headache. These are not all of the side effects that may occur. If you have questions about side effects, call your doctor. Call your doctor for medical advice about side effects. You may report side effects to your national health agency. How is this drug best taken? Use this drug as ordered by your doctor. Read all information given to you. Follow all instructionsclosely. All products: Take with meals. Keep taking this drug as you have been told by your doctor or other health care provider, even if you feel well. [facility] Miscellaneous Notes* Telephone Encounter - Araceli Medrano MD - 06/06/2023 6:41 PM EDT Recommend scheduling with AG or DM for weight loss management documented in this encounterP[facility]06[facility] History of Present illness Narrative* Araceli Medraon MD - 03/02/2022 9:21 AM EDT VIRTUAL VISIT PROGRESS NOTE This is a virtual visit using [employer] video visit. It required patient-provider interaction for themedical decision making as documented below. Millie Dela Cruz is a 26 year old female seen for follow up. Menses just ended. She is motivated to work on weight loss. Desires in near future. Blood work and pelvic ultrasound completed. HISTORY REVIEWED (electronic chart updated): PAST MEDICAL HISTORY Diagnosis Date NEGATIVE HISTORY OF PCOS (polycystic ovarian syndrome) PAST SURGICAL HISTORY Procedure Laterality Date REFRACTIVE SURGERY OD (RIGHT EYE) 2019 FAMILY HISTORY Problem Relation Age of Onset other (polycystic ovary syndrome) Mother other (cervical dysplasia) Mother Breast Cancer Maternal Grandmother Social History Tobacco Use Smoking status: Current Every Day Smoker Smokeless tobacco: Never Used Vaping Use Vaping Use: Never used Substance Use Topics Alcohol use: Yes Comment: occasional Drug use: Not Currently Current Outpatient Medications Medication Sig guaiFENesin (MUCINEX) 600 mg 12 hr tablet Take 2 tablets by mouth twice daily. sodium chloride (AYR SALINE) 0.65 % drop Use 1 Drop in the nose every 2 hours as needed. benzocaine-menthol (CEPACOL) 15-2.6 mg lozg lozenge Take 1 Lozenge by mouth every 2 hours as needed. fluticasone (FLONASE ALLERGY RELIEF) 50 mcg/actuation nasal spray Use 1 [place] in each nostril once daily. pseudoephedrine (SUDAFED) 30 mg tablet Take 1 tablet by mouth every 4 hours as needed. Omeprazole 40 mg capsule Take 1 capsule by mouth once daily. (Patient not taking: Reported on 01/03/2019 ) No current facility-administered medications for this visit. ALLERGIES Allergen Reactions Amoxicillin Rash Zythromax [Azithrom* Rash REVIEW OF SYSTEMS: As noted in HPI PHYSICAL EXAMINATION: VIDEO EXAM: (if completed, performed via video enabled technology) GENERAL: alert and appropriate, in no distress, well-hydrated, well nourished and happy, smiling, interactive ASSESSMENT: (E66.01, Z68.41) Class 3 severe obesity with body mass index (BMI) of 40.0 to 44.9 in adult, unspecified obesity type, unspecified whether serious comorbidity present (HCC) (primary encounter diagnosis) (Z31.9) Desire for (E28.2) PCOS (polycystic ovarian syndrome) PLAN: Continue to work on weight loss - referrals placed to assist with this Patient is motivated to work on weight loss and comfortable holding off on ovulation induction medication at this time. She understands risks with and BMI > 40 Weight check/follow up in 3 months I spent a total of 20 minutes on the date of the service which included preparing to see the patient, [id number] patient care, completing clinical documentation, obtaining and/or reviewing separately obtained history, counseling and educating the patient/family/caregiver and ordering medications, tests, or procedures Araceli Medrano DO documented in this encounterP[facility]05-04-2022 Instructions* Patient Instructions* Araceli Medrano MD - 02/01/2022 4:14 PM EDT Blood work on day 3 of your cycle Progesterone level to be drawn 7 days before the start of your next period documented in this encounterP[facility]05-04-[facility]22 History of Present illness Narrative* Araceli Medrano MD - 02/01/2022 3:36 PM EDT Millie Dela Cruz is a 26 year old female who presents for problem visit - irregular cycles, infertility. HPI: Menstrual cycles 32 days with 6 days of flow. Occasionally menses will be late or she will miss a period. Has noticed weight gain but recently able to work on weight loss and going to gym 4-5 x a week. No hirsutism. H/o migraines. No h/o PID, STD's, pelvic surgery. Has been using OPK's and notgetting LH surge. Currently in a relationship x 5 years. Male partner. He does not have any children. Partner has h/phirschsprung's and is otherwise healthy. OB History T0 L0 SAB0 IAB0 Ectopic0 Multiple0 Live Births0 She reports a positive test 08/2021 and shortly after had heavy bleeding and SAB Belt Knife Feeder History LMP: 01/18/2022, Having periods Age at Menarche: Age at First : Age at Menopause: Belt Knife Feeder History Comments: Sexual Activity: Yes; Male Contraception: No contraception data on record PAST MEDICAL HISTORY Diagnosis Date NEGATIVE HISTORY OF PAST SURGICAL HISTORY Procedure Laterality Date REFRACTIVE SURGERY OD (RIGHT EYE) 2019 FAMILY HISTORY Problem Relation Age of Onset other (polycystic ovary syndrome) Mother other (cervical dysplasia) Mother Breast Cancer Maternal Grandmother Social History Tobacco Use Smoking status: Current Every Day Smoker Smokeless tobacco: Never Used Vaping Use Vaping Use: Never used Substance Use Topics Alcohol use: Yes Comment: occasional Drug use: Not Currently Current Outpatient Medications Medication Sig guaiFENesin (MUCINEX) 600 mg 12 hr tablet Take 2 tablets by mouth twice daily. sodium chloride (AYR SALINE) 0.65 % drop Use 1 Drop in the nose every 2 hours as needed. benzocaine-menthol (CEPACOL) 15-2.6 mg lozg lozenge Take 1 Lozenge by mouth every 2 hours as needed. fluticasone (FLONASE ALLERGY RELIEF) 50 mcg/actuation nasal spray Use 1 [place] in each nostril once daily. pseudoephedrine (SUDAFED) 30 mg tablet Take 1 tablet by mouth every 4 hours as needed. Omeprazole 40 mg capsule Take 1 capsule by mouth once daily. (Patient not taking: Reported on 01/03/2019 ) No current facility-administered medications for this visit. Allergies As of Date: 02/01/2022 Allergen Noted Reaction AMOXICILLIN 01/09/2017 Rash ZYTHROMAX [AZITHROMYCIN] 01/09/2017 Rash Fully Assessed 02/01/2022 REVIEW OF SYSTEMS Expanded ROS: N/A Allergies and current medication updated:Yes EXAM: BP 122/80 Wt 232 lb 6.4 oz (105.4kg) LMP 01/18/2022 GENERAL: pleasant, female in no apparent distress HEENT: Normocephalic, atraumatic CHEST: Normal inspiratory effort NEURO: exam grossly non-focal EXTREMITIES: normal ASSESSMENT AND PLAN: Encounter Diagnosis ICD-10-CM 1. DUB (dysfunctional uterine bleeding) N93.8 TSH BLD PROLACTIN BLD DHEA-S BLD TESTOSTERONE TOTAL HYDROXYPROGESTERO-17 PROGESTERONE BLD LIPID PANEL BASIC FSH BLD LUTEINIZING HORMONE HGB A1C GLUCOSE FASTING BLD US FEMALE PELVIS TRANSVAG PELVIC US WHI ESTRADIOL-17B BLD 2. Irregular periods N92.6 TSH BLD PROLACTIN BLD DHEA-S BLD TESTOSTERONE TOTAL HYDROXYPROGESTERO-17 PROGESTERONE BLD LIPID PANEL BASIC FSH BLD LUTEINIZING HORMONE HGB A1C GLUCOSE FASTING BLD US FEMALE PELVIS TRANSVAG PELVIC US WHI ESTRADIOL-17B BLD 3. Class 3 severe obesity with body mass index (BMI) of 40.0 to 44.9 in adult, unspecified obesity type, unspecified whether serious comorbidity present (HCC) E66.01 TSH BLD Z68.41 PROLACTIN BLD DHEA-S BLD TESTOSTERONE TOTAL HYDROXYPROGESTERO-17 PROGESTERONE BLD LIPID PANEL BASIC FSH BLD LUTEINIZING HORMONE HGB A1C GLUCOSE FASTING BLD US FEMALE PELVIS TRANSVAG PELVIC US WHI ESTRADIOL-17B BLD Concern for PCOS. Check pelvic ultrasound and lab work as noted above. Reviewed possible causes forirregular periods and female infertility. RTO after blood work and ultrasound to discuss results, and possibly starting ovulation induction medication if appropriate after workup. Discussed risks of obesity with . Reviewed importance of weight loss. Taking PNV. Medical Decision Making: Data: Unique test(s) ordered: 3+ Risk: Low: Low risk from testing/treatment Medical Decision Making Level: 3 - Low Araceli Medrano DO documented in [facility] encounterP[facility]* Diagnosis DUB (dysfunctional uterine bleeding)- Primary Other disorder of menstruation and other abnormal bleeding from female genital tract Irregular periods Irregular menstrual cycle Class 3 severe obesity with body mass index (BMI) of 40.0 to 44.9 in adult, unspecified obesity type, unspecified whether serious comorbidity present (HCC) Female infertility Female infertility of unspecified origin [facility]* Diagnosis DUB (dysfunctional uterine bleeding)- Primary Other disorder of menstruation and other abnormal bleeding from female genital tract [facility]* Diagnosis Class 3 severe obesity with body mass index (BMI) of 40.0 to 44.9 in adult, unspecified obesity type, unspecified whether serious comorbidity present (HCC)- Primary Desire for Unspecified procreative management PCOS (polycystic ovarian syndrome) Polycystic ovaries [facility]* Diagnosis PCOS (polycystic ovarian syndrome)- Primary Polycystic ovaries Elevated LDL cholesterol level Pure hypercholesterolemia Malaise and fatigue Other malaise and fatigue History of non anemic vitamin B12 deficiency Personal history of nutritional deficiency Screening for diabetes mellitus Encounter for vitamin deficiency screening Screening for other and unspecified endocrine, nutritional, metabolic, and immunity disorders Screening for deficiency anemia Screening for other and unspecified deficiency anemia Class 2 obesity with body mass index (BMI) of 39.0 to 39.9 in adult, unspecified obesity type, unspecified whether serious comorbidity present documented in this encounter [facility] note* Diagnosis PCOS (polycystic ovarian syndrome)- Primary Polycystic ovaries Elevated LDL cholesterol level Pure hypercholesterolemia Class 2 obesity with body mass index (BMI) of 39.0 to 39.9 in adult, unspecified obesity type, unspecified whether serious comorbidity present documented in this encounter [facility] noteNo assessment information availableWPremier Health Work Phone: Evaluation note* Diagnosis PCOS (polycystic ovarian syndrome) Polycystic ovaries Class 2 obesity with body mass index (BMI) of 39.0 to 39.9 in adult, unspecified obesity type, unspecified whether serious comorbidity present documented in this encounter [facility] note* Diagnosis PCOS (polycystic ovarian syndrome) Polycystic ovaries Class 2 obesity with body mass index (BMI) of 39.0 to 39.9 in adult, unspecified obesity type, unspecified whether serious comorbidity present documented in this encounter [facility] note* Diagnosis PCOS (polycystic ovarian syndrome)- Primary Polycystic ovaries Elevated LDL cholesterol level Pure hypercholesterolemia Ocular migraine Other forms of migraine, without mention of intractable migraine without mention of status migrainosus Class 2 obesity with body mass index (BMI) of 39.0 to 39.9 in adult, unspecified obesity type, unspecified whether serious comorbidity present documented in this encounter [facility] note* Diagnosis PCOS (polycystic ovarian syndrome) Polycystic ovaries Class 2 obesity with body mass index (BMI) of 39.0 to 39.9 in adult, unspecified obesity type, unspecified whether serious comorbidity present documented in this encounter [facility] note* Diagnosis Missed menses- Primary Absence of menstruation Encounter for BCP ( control pills) initial prescription General counseling for prescription of oral contraceptives Threatened Threatened , unspecified as to episode of care documented in this encounter [facility] note* Diagnosis Ectopic , unspecified location, unspecified whether intrauterine present- Primary documented in this encounter [facility] note* Diagnosis Ectopic without intrauterine , unspecified location- Primary [facility]* Diagnosis Ectopic with intrauterine , unspecified location- Primary [facility]* Diagnosis PCOS (polycystic ovarian syndrome) Polycystic ovaries Elevated LDL cholesterol level Pure hypercholesterolemia Class 2 obesity with body mass index (BMI) of 39.0 to 39.9 in adult, unspecified obesity type, unspecified whether serious comorbidity present [facility]* Diagnosis PCOS (polycystic ovarian syndrome)- Primary Polycystic ovaries Elevated LDL cholesterol level Pure hypercholesterolemia Ocular migraine Other forms of migraine, without mention of intractable migraine without mention of status migrainosus Class 2 obesity with body mass index (BMI) of 39.0 to 39.9 in adult, unspecified obesity type, unspecified whether serious comorbidity present [facility]* Diagnosis Acute cystitis with hematuria- Primary Vaginal bleeding in ([facility]) documented in this encounter [facility] Work Phone: Evaluation note* Diagnosis Hx of ectopic - Primary Personal history of other genital system and obstetric disorders documented in this encounter [facility] note* Diagnosis Spotting in early - Primary Spotting complicating , antepartum condition or complication [facility]* Diagnosis with uncertain dates in first trimester- Primary History of ectopic Personal history of other genital system and obstetric disorders [facility]* Diagnosis Early stage of - Primary state, incidental Insomnia, unspecified type related nausea, antepartum Mild hyperemesis gravidarum, antepartum Migraine without status migrainosus, not intractable, unspecified migraine type [facility]* Diagnosis Hx of ectopic Personal history of other genital system and obstetric disorders [facility]* Diagnosis PCOS (polycystic ovarian syndrome) Polycystic ovaries Class 2 obesity with body mass index (BMI) of 39.0 to 39.9 in adult, unspecified obesity type, unspecified whether serious comorbidity present documented in this encounter [facility] note* Diagnosis Encounter for supervision of high risk in first trimester, antepartum- Primary 7 weeks gestation of state, incidental Screen for STD (sexually transmitted disease) Screening examination for venereal disease Screening for cervical cancer Screening for malignant neoplasm of the cervix Obesity affecting in first trimester, unspecified obesity type Heartburn during in first trimester Family history of genetic disorder Family history of other condition History of smoking Personal history of tobacco use, presenting hazards to health History of ectopic Personal history of other genital system and obstetric disorders [facility] Diagnosis Encounter for supervision of high risk in first trimester, antepartum- Primary [facility] Diagnosis Encounter for screening for malformation using ultrasound- Primary 12 weeks gestation of state, incidental [facility] Diagnosis Encounter for supervision of high risk in first trimester, antepartum- Primary 12 weeks gestation of state, incidental Heartburn during in first trimester [facility] Diagnosis Family history of defect- Primary Family history of congenital anomalies Encounter of female for testing for genetic disease carrier status for procreative management Testing of female for genetic disease carrier status [facility] Diagnosis 16 weeks gestation of (HCC)- Primary state, incidental Supervision of high risk in second trimester ([facility]) Unspecified high-risk [facility] Diagnosis Supervision of high risk in second trimester (HCC)- Primary Unspecified high-risk 20 weeks gestation of ([facility]) state, incidental Obesity affecting in second trimester, unspecified obesity type ([facility]) Rubella non-immune status, antepartum ([facility]) Other specified complication, antepartum Marginal insertion of umbilical cord affecting management of mother ([facility]) [facility]* Diagnosis Encounter for anatomic survey ([facility])- Primary Encounter for anatomic survey 20 weeks gestation of ([facility]) state, incidental Obesity affecting in second trimester, unspecified obesity type ([facility]) [facility]* Diagnosis Supervision of high risk in second trimester (HCC)- Primary Unspecified high-risk 24 weeks gestation of ([facility]) state, incidental Screening for diabetes mellitus Obesity affecting in second trimester, unspecified obesity type ([facility]) Marginal insertion of umbilical cord affecting management of mother ([facility]) Excessive weight gain in , second trimester ([facility]) [facility]* Diagnosis PCOS (polycystic ovarian syndrome) Polycystic ovaries Elevated LDL cholesterol level Pure hypercholesterolemia Class 2 obesity with body mass index (BMI) of 39.0 to 39.9 in adult, unspecified obesity type, unspecified whether serious comorbidity present [facility]* Diagnosis Supervision of high risk in second trimester (HCC)- Primary Unspecified high-risk 27 weeks gestation of (HCC) state, incidental Obesity affecting in second trimester, unspecified obesity type (HCC) Dizziness Dizziness and giddiness Marginal insertion of umbilical cord affecting management of mother (HCC) Rubella non-immune status, antepartum ([facility]) Other specified complication, antepartum [facility]* Diagnosis 28 weeks gestation of (HCC)- Primary state, incidental Obesity affecting in second trimester, unspecified obesity type (HCC) Need for vaccination Need for prophylactic vaccination and inoculation against unspecified single disease Supervision of other high risk pregnancies, third trimester (HCC) Marginal insertion of umbilical cord affecting management of mother in third trimester (HCC) * Assessment & Plan Note - Merry White MD - 03/25/2025 8:58 AM EDT Associated Problem(s): Obesity affecting in second trimester (HCC) documented in this encounter [facility] note* Diagnosis 28 weeks gestation of (HCC)- Primary state, incidental Obesity affecting in second trimester, unspecified obesity type (HCC) Need for vaccination Need for prophylactic vaccination and inoculation against unspecified single disease Supervision of other high risk pregnancies, third trimester (HCC) Marginal insertion of umbilical cord affecting management of mother in third trimester (HCC) Hypokalemia Hypopotassemia Elevated glucose- Primary Other abnormal glucose documented in this encounter [facility] note* Diagnosis 28 weeks gestation of (HCC)- Primary state, incidental Obesity affecting in second trimester, unspecified obesity type (HCC) Need for vaccination Need for prophylactic vaccination and inoculation against unspecified single disease Supervision of other high risk pregnancies, third trimester (HCC) Marginal insertion of umbilical cord affecting management of mother in third trimester (HCC) Hypokalemia Hypopotassemia Diet controlled gestational diabetes mellitus (GDM) in third trimester (HCC)- Primary documented in this encounter [facility] note* Diagnosis 28 weeks gestation of (HCC)- Primary state, incidental Obesity affecting in second trimester, unspecified obesity type (HCC) Need for vaccination Need for prophylactic vaccination and inoculation against unspecified single disease Supervision of other high risk pregnancies, third trimester (HCC) Marginal insertion of umbilical cord affecting management of mother in third trimester (HCC) Hypokalemia Hypopotassemia Diet controlled gestational diabetes mellitus (GDM) in third trimester ([facility]) documented in this encounter [facility] note* Diagnosis 28 weeks gestation of (HCC)- Primary state, incidental Obesity affecting in second trimester, unspecified obesity type (HCC) Need for vaccination Need for prophylactic vaccination and inoculation against unspecified single disease Supervision of other high risk pregnancies, third trimester ([facility]) Marginal insertion of umbilical cord affecting management of mother in third trimester ([facility]) Hypokalemia Hypopotassemia Encounter for ultrasound to check growth ([facility])- Primary Encounter for routine screening for malformation using ultrasonics GDM, class A1 ([facility]) Abnormal maternal glucose tolerance, complicating , childbirth, or the puerperium, unspecified as to episode of care 30 weeks gestation of ([facility]) state, incidental documented in this encounter [facility] note* Diagnosis 28 weeks gestation of (HCC)- Primary state, incidental Obesity affecting in second trimester, unspecified obesity type (HCC) Need for vaccination Need for prophylactic vaccination and inoculation against unspecified single disease Supervision of other high risk pregnancies, third trimester ([facility]) Marginal insertion of umbilical cord affecting management of mother in third trimester ([facility]) Hypokalemia Hypopotassemia Supervision of high risk in second trimester ([facility])- Primary Unspecified high-risk 30 weeks gestation of ([facility]) state, incidental Diet controlled gestational diabetes mellitus (GDM) in third trimester ([facility]) Obesity affecting in second trimester, unspecified obesity type ([facility]) History of smoking Personal history of tobacco use, presenting hazards to health Rubella non-immune status, antepartum ([facility]) Other specified complication, antepartum Marginal insertion of umbilical cord affecting management of mother ([facility]) Need for vaccination Need for prophylactic vaccination and inoculation against unspecified single disease documented in this encounter [facility] note* Diagnosis 28 weeks gestation of (HCC)- Primary state, incidental Obesity affecting in second trimester, unspecified obesity type (HCC) Need for vaccination Need for prophylactic vaccination and inoculation against unspecified single disease Supervision of other high risk pregnancies, third trimester (HCC) Marginal insertion of umbilical cord affecting management of mother in third trimester (HCC) Hypokalemia Hypopotassemia Supervision of high risk in third trimester (HCC)- Primary Unspecified high-risk 32 weeks gestation of ([facility]) state, incidental Diet controlled gestational diabetes mellitus (GDM) in third trimester ([facility]) Obesity affecting in second trimester, unspecified obesity type (HCC) History of smoking Personal history of tobacco use, presenting hazards to health Rubella non-immune status, antepartum ([facility]) Other specified complication, antepartum Marginal insertion of umbilical cord affecting management of mother ([facility]) Gestational diabetes mellitus (GDM) requiring insulin ([facility]) [facility]* Diagnosis 28 weeks gestation of (HCC)- Primary state, incidental Obesity affecting in second trimester, unspecified obesity type (HCC) Need for vaccination Need for prophylactic vaccination and inoculation against unspecified single disease Supervision of other high risk pregnancies, third trimester ([facility]) Marginal insertion of umbilical cord affecting management of mother in third trimester ([facility]) Hypokalemia Hypopotassemia Supervision of high risk in third trimester ([facility])- Primary Unspecified high-risk Insulin controlled gestational diabetes mellitus (GDM) in third trimester ([facility]) 33 weeks gestation of ([facility]) state, incidental History of smoking Personal history of tobacco use, presenting hazards to health Obesity affecting in third trimester, unspecified obesity type (HCC) Cramping affecting , antepartum ([facility]) [facility] Diagnosis 28 weeks gestation of (HCC)- Primary state, incidental Obesity affecting in second trimester, unspecified obesity type (HCC) Need for vaccination Need for prophylactic vaccination and inoculation against unspecified single disease Supervision of other high risk pregnancies, third trimester ([facility]) Marginal insertion of umbilical cord affecting management of mother in third trimester ([facility]) Hypokalemia Hypopotassemia 35 weeks gestation of ([facility])- Primary state, incidental Gestational hypertension without significant proteinuria in third trimester ([facility]) Transient hypertension of , antepartum Supervision of high risk due to social problems, third trimester ([facility]) Insulin controlled gestational diabetes mellitus (GDM) in third trimester ([facility]) * Assessment & Plan Note - George Vieira MD - 05/12/2025 3:04 PM EDTAssociated Problem(s): Gestational hypertension without significant proteinuria in third trimester (HCC) BP log reviewed & normal to mildly elevated at home. Orders: URINE OB DIP B/O ROUTINE, GROUP B STREPTOCOCCUS BY PCR * Assessment & Plan Note - George Vieira MD - 05/12/2025 3:04 PM EDTAssociated Problem(s): Insulin controlled gestational diabetes mellitus (GDM) in third trimester ([facility]) BS log reviewed & majority normal. Orders: URINE OB DIP B/O ROUTINE, GROUP B STREPTOCOCCUS BY PCR documented in this encounter [facility] note* Diagnosis 28 weeks gestation of ([facility])- Primary state, incidental Obesity affecting in second trimester, unspecified obesity type ([facility]) Need for vaccination Need for prophylactic vaccination and inoculation against unspecified single disease Supervision of other high risk pregnancies, third trimester ([facility]) Marginal insertion of umbilical cord affecting management of mother in third trimester ([facility]) Hypokalemia Hypopotassemia 35 weeks gestation of ([facility])- Primary state, incidental Gestational hypertension without significant proteinuria in third trimester ([facility]) Transient hypertension of , antepartum Supervision of high risk due to social problems, third trimester ([facility]) Insulin controlled gestational diabetes mellitus (GDM) in third trimester ([facility]) 35 weeks gestation of ([facility])- Primary state, incidental Gestational hypertension without significant proteinuria in third trimester ([facility]) Transient hypertension of , antepartum Supervision of high risk due to social problems, third trimester ([facility]) Insulin controlled gestational diabetes mellitus (GDM) in third trimester ([facility]) Maternal obesity syndrome, antepartum, third trimester ([facility]) documented in this encounter [facility] note* Diagnosis 28 weeks gestation of ([facility])- Primary state, incidental Obesity affecting in second trimester, unspecified obesity type (HCC) Need for vaccination Need for prophylactic vaccination and inoculation against unspecified single disease Supervision of other high risk pregnancies, third trimester (HCC) Marginal insertion of umbilical cord affecting management of mother in third trimester (HCC) Hypokalemia Hypopotassemia 35 weeks gestation of (HCC)- Primary state, incidental Gestational hypertension without significant proteinuria in third trimester (HCC) Transient hypertension of , antepartum Supervision of high risk due to social problems, third trimester (HCC) Insulin controlled gestational diabetes mellitus (GDM) in third trimester (HCC) macrosomia during in third trimester, single or unspecified fetus (HCC)- Primary Supervision of high risk in third trimester (HCC) Unspecified high-risk Insulin controlled gestational diabetes mellitus (GDM) in third trimester (HCC) Obesity affecting in third trimester, unspecified obesity type (HCC) 35 weeks gestation of (HCC) state, incidental [facility] Diagnosis 28 weeks gestation of (HCC)- Primary state, incidental Obesity affecting in second trimester, unspecified obesity type (HCC) Need for vaccination Need for prophylactic vaccination and inoculation against unspecified single disease Supervision of other high risk pregnancies, third trimester (HCC) Marginal insertion of umbilical cord affecting management of mother in third trimester (HCC) Hypokalemia Hypopotassemia 35 weeks gestation of (HCC)- Primary state, incidental Gestational hypertension without significant proteinuria in third trimester (HCC) Transient hypertension of , antepartum Supervision of high risk due to social problems, third trimester (HCC) Insulin controlled gestational diabetes mellitus (GDM) in third trimester (HCC) 36 weeks gestation of (HCC)- Primary state, incidental Gestational hypertension without significant proteinuria in third trimester (HCC) Transient hypertension of , antepartum Supervision of high risk due to social problems, third trimester (HCC) Insulin controlled gestational diabetes mellitus (GDM) in third trimester (HCC) Maternal obesity syndrome, antepartum, third trimester (HCC) * Assessment & Plan Note - George Vieira MD - 05/19/2025 10:05 AM EDTAssociated Problem(s): Gestational hypertension without significant proteinuria in third trimester (HCC) BP's at home typically 140/90 Orders: URINE OB DIP B/O * Assessment & Plan Note - George Vieira MD - 05/19/2025 10:05 AM EDTAssociated Problem(s): Insulin controlled gestational diabetes mellitus (GDM) in third trimester (HCC) Orders: URINE OB DIP B/O documented in this encounter [facility] note* Diagnosis 28 weeks gestation of (HCC)- Primary state, incidental Obesity affecting in second trimester, unspecified obesity type (HCC) Need for vaccination Need for prophylactic vaccination and inoculation against unspecified single disease Supervision of other high risk pregnancies, third trimester ([facility]) Marginal insertion of umbilical cord affecting management of mother in third trimester ([facility]) Hypokalemia Hypopotassemia 35 weeks gestation of (HCC)- Primary state, incidental Gestational hypertension without significant proteinuria in third trimester ([facility]) Transient hypertension of , antepartum Supervision of high risk due to social problems, third trimester ([facility]) Insulin controlled gestational diabetes mellitus (GDM) in third trimester ([facility]) Gestational diabetes mellitus (GDM) requiring insulin ([facility])- Primary 36 weeks gestation of ([facility]) state, incidental 36 weeks gestation of (HCC)- Primary state, incidental Gestational hypertension without significant proteinuria in third trimester ([facility]) Transient hypertension of , antepartum Supervision of high risk due to social problems, third trimester (HCC) Insulin controlled gestational diabetes mellitus (GDM) in third trimester ([facility]) Maternal obesity syndrome, antepartum, third trimester ([facility]) documented in this encounter [facility] note* Diagnosis 28 weeks gestation of (HCC)- Primary state, incidental Obesity affecting in second trimester, unspecified obesity type (HCC) Need for vaccination Need for prophylactic vaccination and inoculation against unspecified single disease Supervision of other high risk pregnancies, third trimester (HCC) Marginal insertion of umbilical cord affecting management of mother in third trimester (HCC) Hypokalemia Hypopotassemia 35 weeks gestation of (HCC)- Primary state, incidental Gestational hypertension without significant proteinuria in third trimester (HCC) Transient hypertension of , antepartum Supervision of high risk due to social problems, third trimester (HCC) Insulin controlled gestational diabetes mellitus (GDM) in third trimester (HCC) 36 weeks gestation of (HCC)- Primary state, incidental Gestational hypertension without significant proteinuria in third trimester (HCC) Transient hypertension of , antepartum Supervision of high risk due to social problems, third trimester (HCC) Insulin controlled gestational diabetes mellitus (GDM) in third trimester (HCC) Maternal obesity syndrome, antepartum, third trimester (HCC) 36 weeks gestation of (HCC)- Primary state, incidental Gestational hypertension without significant proteinuria in third trimester (HCC) Transient hypertension of , antepartum Insulin controlled gestational diabetes mellitus (GDM) in third trimester (HCC) Maternal obesity syndrome, antepartum, third trimester (HCC) Supervision of high risk in third trimester (HCC) Unspecified high-risk [facility] Nicolette Bobo [facility] Note Date/Time May 06, 2025 6:0 6pm [facility] Medical Records Department [address] [place] [address] OB Triage Physician Note 05/06/25 1744 MR#: [id number] Acct: [id number] Name: MILLIE WATKINS Rep #:[id number] : 1995 29 From: Nicolette Bobo CNM PCP: Care Physician,No Primary Status :REG CLI Y Location: [address] HPI - General HPI Narrative MILLIE WATKINS, is a 29 F who presents to triage with elevated blood pressure at home. Patient called into office because she had bought a blood pressure cuff and BP was elevated to 143/93, 180/121. Patient reports a headache that radiates behind her eyes. RN recommended patient come to triage. [facility] Home Medications ?Medication ?Instructions ?Recorded ?Last Taken ?Type [id number] 05/06/25 Unknown His tory aspirin 81mg q day 05/06/25 05/05/25 History insulin NPH isoph U-100 human subcut 05/06/25 Unknown History Allergy/AdvReac Type Severity Reaction Status Date / Time amoxicillin Allergy Intermediate rash Verified 05/06/25 15:54 azithromycin (From z pack) Allergy Intermediate rash Verified 05/06/25 15:54 ROS Eyes Eyes: Denies blurry vision ENT HEENT: Reports as per HPI, headache(s), sinus pain and sinus pressure Cardiovascular Cardiovascular: Reports none; Denies chest pain at rest, chest pain with activity or dizziness Respiratory/Chest Respiratory/Chest: Denies cough or dyspnea Gastrointestinal Gastrointestinal: Reports none and other; Denies diarrhea or vomiting Genitourinary Genitourinary: Denies dysuria Musculoskeletal Musculoskeletal: Reports none Integumentary Integumentary: Reports none; Denies rash Psychiatric Psychiatric: Reports none Physical Exam Const alert and no apparent distress General Appearance: cooperative Orientation / Consciousness: awake Exam Limitations: no limitations HEENT normocephalic Eyes General Eye: normal appearance of both eyes Neck full ROM Chest inspection of chest normal Resp normal respiratory effort and normal air movement Effort and Inspection: symmetric chest movement Auscultation: clear to auscultation bilaterally Cardio regular rate GI soft to palpation, non-tender and non-distended Inspection: and other Back/Spine normal ROM Extremity full ROM, normal capillary refill and no calf tenderness Skin no rashes or lesions noted Neuro oriented x3 and CN's II-XII intact bilaterally Psych mental status grossly normal NST FHR Rate Baby A Baseline: 130 Variability:: Moderate Accelerations:: 15 x 15 Decelerations:: Variable NST Reactive:: Yes Uterine Activity:: irritability Assessment & Plan (1) Elevated blood pressure affecting , antepartum: (2) 34 weeks gestation of : (3) Headache: (4) GDM, class A2: PLAN: Plan Blood pressures stable- no severe ranges Last BP 118/71 PIH labs - normal Tylenol 1000 mg PO x 1 Benadryl 25 mg PO x 1 Headache resolved after medication CE - outer os 1cm- funnels to closed D/C home with follow up in office tomorrow for NST/BEVERLY/BP check Dr. Shabazz notified and of A&P 05/06/25 [id number] <Electronically signed by Nicolette NARANJO> Date _ Nicolette Bobo CNM Cosigner Signature (if applicable): Date CC: EUGENIA Bobo; No Primary Care Physician ~ Signed ADDENDUM by EUGENIA Bobo on 05/06/25 at 1806 Addendum Patient VIRGIL 06/14/25 34.3 days gestation 05/06/25 1806 <Electronically signed by Nicolette NARANJO> Date _ Nicolette Bobo CNM cc: EUGENIA Bobo; No Primary Care Physician ~* Signed [facility] Work Phone: Hospital Discharge instructions* Attachments The following attachments cannot be sent through Care Everywhere. * Bleeding in Early ED ([place]egalese) * Urinary Tract Infection, Adult ED ([place]) [facility]: Hospital Discharge instructionsAdditional Instructions Keep your scheduled appt 05/07/25.[facility] Work Phone: Reason for referral (narrative)* Diagnostic Procedure Only (Routine) - Authorized Specialty Diagnoses / Procedures Referred By Selene hankins Referred To Contact [facility] Diagnoses DUB (dysfunctional uterine bleeding) Irregular periods Class 3 severe obesity with body mass index (BMI) of 40.0 to 44.9 in adult, unspecified obesity type, unspecified whether serious comorbidity present ([facility]) Procedures PELVIC US WHI US PELVIC NONOBSTETRIC REAL-TIME IMAGE COMPLETE Araceli Medrano MD [address] [place] [address] [facility] [address] [place] [id number] Referral ID Status Reason Start Date Expiration Date Visits Requested Visits Authorized [id number] Authorized Auto-Generat ed Referral 02/01/2022 02/01/2023 1 1 * Diagnostic Procedure Only (Routine) - Pending Review Specialty Diagnoses / Procedures Referred By Selene hankins Referred To Contact US IMAGING Diagnoses DUB (dysfunctional uterine bleeding) Irregular periods Class 3 severe obesity with body mass index (BMI) of 40.0 to 44.9 in adult, unspecified obesity type, unspecified whether serious comorbidity present (HCC) Procedures US FEMALE PELVIS TRANSVAG US TRANSVAGINAL Araceli Medrano MD [address] [place] [address] Us Imaging Referral ID Status Reason Start Date Expiration Date Visits Requested Visits Authorized [id number] Pending Review Auto-Generat ed Referral 02/01/2022 03/03/[address] [facility] for referral (narrative)* Consultation (Routine) - Authorized Specialty Diagnoses / Procedures Referred By Contac t Referred To Contact Obstetrics and Gynecology Diagnoses Vaginal bleeding in ([facility]) Alexa Duvall, CUT OFF [employer]FORMANCE TESTER [address] [address] Referral ID Status Reason Start Date Expiration Date Visits Requested Visits Authorized [id number] Authorized Specialty Services Required 03/28/2024 03/28/2025 1 1 [facility] Work Phone: [facility] for referral (narrative)* Diagnostic Procedure Only (Routine) - New Request Specialty Diagnoses / Procedures Referred By Contac t Referred To Contact [facility] Diagnoses Hx of ectopic Procedures OBSTETRIC ULTRASOUND WHI US PREG UTERUS AFTER 1ST TRIMEST GESTATION George Vieira MD [address] [place] [address] [facility] [address] [place] [address] Referral ID Status Reason Start Date Expiration Date Visits Requested Visits Authorized [id number] New Request Auto-Generat ed Referral 10/07/2024 10/07/2025 1 1 [facility] for referral (narrative)* Diagnostic Procedure Only (Routine) - Authorized Specialty Diagnoses / Procedures Referred By Contac t Referred To Contact [facility] Diagnoses Encounter for supervision of high risk in first trimester, antepartum Procedures OBSTETRIC ULTRASOUND WHI US PREG UTERUS AFTER 1ST TRIMEST GESTATION Marlene Jimenez APRN.PERFORMANCE TESTER [address] [place] [address] [facility] [address] [place] [address] Referral ID Status Reason Start Date Expiration Date Visits Requested Visits Authorized [id number] Authorized Auto-Generat ed Referral 10/31/2024 10/31/2025 1 1 * Diagnostic Procedure Only (Routine) - Authorized Specialty Diagnoses / Procedures Referred By Contac t Referred To Contact [facility] Diagnoses Encounter for supervision of high risk in first trimester, antepartum Procedures OBSTETRIC ULTRASOUND WHI US PREG UTERUS AFTER 1ST TRIMEST GESTATION Marlene Jimenez APRN.CNP [address] [place] [address] [facility] [address] [place] [address] Referral ID Status Reason Start Date Expiration Date Visits Requested Visits Authorized [id number] Authorized Auto-Generat ed Referral 10/31/2024 10/31/2025 1 1 [facility]No reason for referral information availableWPremier Health Work Phone: Reason for visit Narrative* Diagnostic Procedure Only (Routine) - Closed Specialty Diagnoses / Procedures Referred By Contac t Referred To Contact [facility] Diagnoses Hx of ectopic Procedures OBSTETRIC ULTRASOUND WHI US PREG UTERUS AFTER 1ST TRIMEST GESTATION George Vieira MD [address] [place] [address] [facility] [address] [place] [address] Referral ID Status Reason Start Date Expiration Date V isits Requested Visits Authorized [id number] Closed Auto-Generate d Referral 10/07/2024 10/07/2025 1 1 [facility] Summary Purpose Family History No Family History Records FoundUnknown Family Member Name Dates Details No pertinent family history: Mother, Father(V49.89, Z78.9) Status:Active Advance Directives No Advanced Directives Records FoundNo Advanced Directives Records FoundNo Advanced Directives Records FoundNo Advanced Directives Records FoundNo Advanced Directives Records FoundNo Advanced Directives Records Found Reason for Referral Specialty Diagnoses / Procedures Referred By Contac t Referred To Contact Diagnoses Class 3 severe obesity with body mass index (BMI) of 40.0 to 44.9 in adult, unspecified obesity type, unspecified whether serious comorbidity present (HCC) Desire for Procedures CONSULT BARIATRIC/[facility]AB[facility]IC [facility] OFFICE/OUTPATIENT [facility] 60-74 MINUTES Araceli Medrano MD [address] [place] [address] Referral ID Status Reason Start Date Expiration Date Visits Requested Visits Authorized [id number] Authorized PCP Requested Referral 03/02/2022 03/02/2023 1 1 Specialty Diagnoses / Procedures Referred By Contac t Referred To Contact Nutrition Diagnoses Class 3 severe obesity with body mass index (BMI) of 40.0 to 44.9 in adult, unspecified obesity type, unspecified whether serious comorbidity present (HCC) Desire for Procedures CONSULT TO NUTRITION THERAPY OFFICE/OUTPATIENT [facility] 60-74 MINUTES Araceli Medrano MD [address] [place] [address] Referral ID Status Reason Start Date Expiration Date Visits Requested Visits Authorized [id number] Authorized PCP Requested Referral 03/02/2022 03/02/2023 1 1 Specialty Diagnoses / Procedures Referred By Contac t Referred To Contact Nutrition Diagnoses PCOS (polycystic ovarian syndrome) Class 2 obesity with body mass index (BMI) of 39.0 to 39.9 in adult, unspecified obesity type, unspecified whether serious comorbidity present Procedures CONSULT TO NUTRITION THERAPY Leona Enriquez APRN.PERFORMANCE TESTER [address] [place] [address] Referral ID Status Reason Start Date Expiration Date Visits Requested Visits Authorized [id number] Ref Not Required PCP Requested Referral 3 07/10/2024 1 1 Chief Complaint and Reason for Visit Chief Complaint DIET COUNS & SURV, O BESITY Chief Complaint DIET COUNS & SURV, O BESITY DIET COUNS & SURV, OBESITY DIET COUNS & SURV, OBESITY Chief Complaint Admit Date R/O PRE E May 06, 2025 1:1 5pm Reason for Visit Admit Date 34 weeks gestation of May 062024 1:15pm Elevated blood pressure affecting pregna ncy, antepartum May 06, 2025 1:15pm GDM, class A2 May 06, 2025 1:1 5pm Headache May 06, 2025 1:1 5pm Chief Complaint Admit Date R/O PRE E May 06, 2025 1:1 5pm R/O PRE E May 14, 2025 11 :05am Reason for Visit Admit Date 34 weeks gestation of May 062024 1:15pm Elevated blood pressure affecting pregna ncy, antepartum May 06, 2025 1:15pm GDM, class A2 May 06, 2025 1:1 5pm Headache May 06, 2025 1:1 5pm Previous delivery affecting pre gnancy May 06, 2025 1:15pm Additional Source Comments <item> Privacy Markings (unrecogniz ed section and content) Section Author: Agnieszka Lai PROHIBITION ON REDISCLOSURE OF CONFIDENTIAL INFORMATION This notice accompanies a disclosure of information concerning a client made to you with the consent of such client. INFORMATION SOURCE (unrecogn ized section and content) DATE CREATED AUTHOR 08/14/2021 [facility] DATE CREATED AUTHOR AUTHOR'S ORGANIZ ATION 04/05/2024 [facility] DATE CREATED AUTHOR AUTHOR'S ORGANIZ ATION 04/22/2024 [facility] DATE CREATED AUTHOR AUTHOR'S ORGANIZ ATION 04/03/2025 [facility] DATE CREATED AUTHOR AUTHOR'S ORGANIZ ATION 05/24/2025 [facility] DATE CREATED AUTHOR AUTHOR'S ORGANIZ ATION 05/24/2025 [facility] Source Comments (unrecognize d section and content) In the event this informatio n is protected by the Federal Confidentiality of Alcohol and Drug Abuse Patient Records regulations: The Federal rules restrict any use of the information to criminally investigate or prosecute any alcohol or drug abuse patient.[facility] the event this information is protected by the Federal Confidentiality of Alcohol and Drug Abuse Patient Records regulations: The Federal rules restrict any use of the information to criminally investigate or prosecute any alcohol or drug abuse patient.[facility] HospitalIn the event this information is protected by the Federal Confidentiality of Alcohol and Drug Abuse Patient Records regulations: The Federal rules restrict any use of the information to criminally investigate or prosecute any alcohol or drug abuse patient.[facility] HospitalIn the event this information is protected by the Federal Confidentiality of Alcohol and Drug Abuse Patient Records regulations: The Federal rules restrict any use of the information to criminally investigate or prosecute any alcohol or drug abuse patient.[facility] HospitalIn the event this information is protected by the Federal Confidentiality of Alcohol and Drug Abuse Patient Records regulations: The Federal rules restrict any use of the information to criminally investigate or prosecute any alcohol or drug abuse patient.[facility] HospitalIn the event this information is protected by the Federal Confidentiality of Alcohol and Drug Abuse Patient Records regulations: The Federal rules restrict any use of the information to criminally investigate or prosecute any alcohol or drug abuse patient.[facility] HospitalIn the event this information is protected by the Federal Confidentiality of Alcohol and Drug Abuse Patient Records regulations: The Federal rules restrict any use of the information to criminally investigate or prosecute any alcohol or drug abuse patient.[facility] HospitalIn the event this information is protected by the Federal Confidentiality of Alcohol and Drug Abuse Patient Records regulations: The Federal rules restrict any use of the information to criminally investigate or prosecute any alcohol or drug abuse patient.[facility] the event this information is protected by the Federal Confidentiality of Alcohol and Drug Abuse Patient Records regulations: The Federal rules restrict any use of the information to criminally investigate or prosecute any alcohol or drug abuse patient.[facility] HospitalIn the event this information is protected by the Federal Confidentiality of Alcohol and Drug Abuse Patient Records regulations: The Federal rules restrict any use of the information to criminally investigate or prosecute any alcohol or drug abuse patient.[facility] HospitalIn the event this information is protected by the Federal Confidentiality of Alcohol and Drug Abuse Patient Records regulations: The Federal rules restrict any use of the information to criminally investigate or prosecute any alcohol or drug abuse patient.[facility] ClinicIn the event this information is protected by the Federal Confidentiality of Alcohol and Drug Abuse Patient Records regulations: The Federal rules restrict any use of the information to criminally investigate or prosecute any alcohol or drug abuse patient.[facility] HospitalIn the event this information is protected by the Federal Confidentiality of Alcohol and Drug Abuse Patient Records regulations: The Federal rules restrict any use of the information to criminally investigate or prosecute any alcohol or drug abuse patient.[facility] HospitalIn the event this information is protected by the Federal Confidentiality of Alcohol and Drug Abuse Patient Records regulations: The Federal rules restrict any use of the information to criminally investigate or prosecute any alcohol or drug abuse patient.[facility] HospitalIn the event this information is protected by the Federal Confidentiality of Alcohol and Drug Abuse Patient Records regulations: The Federal rules restrict any use of the information to criminally investigate or prosecute any alcohol or drug abuse patient.[facility] HospitalIn the event this information is protected by the Federal Confidentiality of Alcohol and Drug Abuse Patient Records regulations: The Federal rules restrict any use of the information to criminally investigate or prosecute any alcohol or drug abuse patient.[facility] HospitalIn the event this information is protected by the Federal Confidentiality of Alcohol and Drug Abuse Patient Records regulations: The Federal rules restrict any use of the information to criminally investigate or prosecute any alcohol or drug abuse patient.[facility] HospitalIn the event this information is protected by the Federal Confidentiality of Alcohol and Drug Abuse Patient Records regulations: The Federal rules restrict any use of the information to criminally investigate or prosecute any alcohol or drug abuse patient.[facility] HospitalIn the event this information is protected by the Federal Confidentiality of Alcohol and Drug Abuse Patient Records regulations: The Federal rules restrict any use of the information to criminally investigate or prosecute any alcohol or drug abuse patient.[facility] HospitalIn the event this information is protected by the Federal Confidentiality of Alcohol and Drug Abuse Patient Records regulations: The Federal rules restrict any use of the information to criminally investigate or prosecute any alcohol or drug abuse patient.[facility] HospitalIn the event this information is protected by the Federal Confidentiality of Alcohol and Drug Abuse Patient Records regulations: The Federal rules restrict any use of the information to criminally investigate or prosecute any alcohol or drug abuse patient.[facility] HospitalIn the event this information is protected by the Federal Confidentiality of Alcohol and Drug Abuse Patient Records regulations: The Federal rules restrict any use of the information to criminally investigate or prosecute any alcohol or drug abuse patient.[facility] HospitalIn the event this information is protected by the Federal Confidentiality of Alcohol and Drug Abuse Patient Records regulations: The Federal rules restrict any use of the information to criminally investigate or prosecute any alcohol or drug abuse patient.[facility] HospitalIn the event this information is protected by the Federal Confidentiality of Alcohol and Drug Abuse Patient Records regulations: The Federal rules restrict any use of the information to criminally investigate or prosecute any alcohol or drug abuse patient.[facility] HospitalIn the event this information is protected by the Federal Confidentiality of Alcohol and Drug Abuse Patient Records regulations: The Federal rules restrict any use of the information to criminally investigate or prosecute any alcohol or drug abuse patient.[facility] HospitalIn the event this information is protected by the Federal Confidentiality of Alcohol and Drug Abuse Patient Records regulations: The Federal rules restrict any use of the information to criminally investigate or prosecute any alcohol or drug abuse patient.[facility] HospitalIn the event this information is protected by the Federal Confidentiality of Alcohol and Drug Abuse Patient Records regulations: The Federal rules restrict any use of the information to criminally investigate or prosecute any alcohol or drug abuse patient.[facility] HospitalIn the event this information is protected by the Federal Confidentiality of Alcohol and Drug Abuse Patient Records regulations: The Federal rules restrict any use of the information to criminally investigate or prosecute any alcohol or drug abuse patient.[facility] HospitalIn the event this information is protected by the Federal Confidentiality of Alcohol and Drug Abuse Patient Records regulations: The Federal rules restrict any use of the information to criminally investigate or prosecute any alcohol or drug abuse patient.[facility] HospitalIn the event this information is protected by the Federal Confidentiality of Alcohol and Drug Abuse Patient Records regulations: The Federal rules restrict any use of the information to criminally investigate or prosecute any alcohol or drug abuse patient.[facility] HospitalIn the event this information is protected by the Federal Confidentiality of Alcohol and Drug Abuse Patient Records regulations: The Federal rules restrict any use of the information to criminally investigate or prosecute any alcohol or drug abuse patient.[facility] HospitalIn the event this information is protected by the Federal Confidentiality of Alcohol and Drug Abuse Patient Records regulations: The Federal rules restrict any use of the information to criminally investigate or prosecute any alcohol or drug abuse patient.[facility] HospitalIn the event this information is protected by the Federal Confidentiality of Alcohol and Drug Abuse Patient Records regulations: The Federal rules restrict any use of the information to criminally investigate or prosecute any alcohol or drug abuse patient.[facility] HospitalIn the event this information is protected by the Federal Confidentiality of Alcohol and Drug Abuse Patient Records regulations: The Federal rules restrict any use of the information to criminally investigate or prosecute any alcohol or drug abuse patient.[facility] HospitalIn the event this information is protected by the Federal Confidentiality of Alcohol and Drug Abuse Patient Records regulations: The Federal rules restrict any use of the information to criminally investigate or prosecute any alcohol or drug abuse patient.[facility] HospitalIn the event this information is protected by the Federal Confidentiality of Alcohol and Drug Abuse Patient Records regulations: The Federal rules restrict any use of the information to criminally investigate or prosecute any alcohol or drug abuse patient.[facility] HospitalIn the event this information is protected by the Federal Confidentiality of Alcohol and Drug Abuse Patient Records regulations: The Federal rules restrict any use of the information to criminally investigate or prosecute any alcohol or drug abuse patient.[facility] HospitalIn the event this information is protected by the Federal Confidentiality of Alcohol and Drug Abuse Patient Records regulations: The Federal rules restrict any use of the information to criminally investigate or prosecute any alcohol or drug abuse patient.[facility] HospitalIn the event this information is protected by the Federal Confidentiality of Alcohol and Drug Abuse Patient Records regulations: The Federal rules restrict any use of the information to criminally investigate or prosecute any alcohol or drug abuse patient.[facility] HospitalIn the event this information is protected by the Federal Confidentiality of Alcohol and Drug Abuse Patient Records regulations: The Federal rules restrict any use of the information to criminally investigate or prosecute any alcohol or drug abuse patient.[facility] HospitalIn the event this information is protected by the Federal Confidentiality of Alcohol and Drug Abuse Patient Records regulations: The Federal rules restrict any use of the information to criminally investigate or prosecute any alcohol or drug abuse patient.[facility] HospitalIn the event this information is protected by the Federal Confidentiality of Alcohol and Drug Abuse Patient Records regulations: The Federal rules restrict any use of the information to criminally investigate or prosecute any alcohol or drug abuse patient.[facility] HospitalIn the event this information is protected by the Federal Confidentiality of Alcohol and Drug Abuse Patient Records regulations: The Federal rules restrict any use of the information to criminally investigate or prosecute any alcohol or drug abuse patient.[facility] HospitalIn the event this information is protected by the Federal Confidentiality of Alcohol and Drug Abuse Patient Records regulations: The Federal rules restrict any use of the information to criminally investigate or prosecute any alcohol or drug abuse patient.[facility] HospitalIn the event this information is protected by the Federal Confidentiality of Alcohol and Drug Abuse Patient Records regulations: The Federal rules restrict any use of the information to criminally investigate or prosecute any alcohol or drug abuse patient.[facility] HospitalIn the event this information is protected by the Federal Confidentiality of Alcohol and Drug Abuse Patient Records regulations: The Federal rules restrict any use of the information to criminally investigate or prosecute any alcohol or drug abuse patient.[facility] HospitalIn the event this information is protected by the Federal Confidentiality of Alcohol and Drug Abuse Patient Records regulations: The Federal rules restrict any use of the information to criminally investigate or prosecute any alcohol or drug abuse patient.[facility] HospitalIn the event this information is protected by the Federal Confidentiality of Alcohol and Drug Abuse Patient Records regulations: The Federal rules restrict any use of the information to criminally investigate or prosecute any alcohol or drug abuse patient.[facility] HospitalIn the event this information is protected by the Federal Confidentiality of Alcohol and Drug Abuse Patient Records regulations: The Federal rules restrict any use of the information to criminally investigate or prosecute any alcohol or drug abuse patient.[facility] HospitalIn the event this information is protected by the Federal Confidentiality of Alcohol and Drug Abuse Patient Records regulations: The Federal rules restrict any use of the information to criminally investigate or prosecute any alcohol or drug abuse patient.[facility] HospitalIn the event this information is protected by the Federal Confidentiality of Alcohol and Drug Abuse Patient Records regulations: The Federal rules restrict any use of the information to criminally investigate or prosecute any alcohol or drug abuse patient.[facility] HospitalIn the event this information is protected by the Federal Confidentiality of Alcohol and Drug Abuse Patient Records regulations: The Federal rules restrict any use of the information to criminally investigate or prosecute any alcohol or drug abuse patient.[facility] HospitalIn the event this information is protected by the Federal Confidentiality of Alcohol and Drug Abuse Patient Records regulations: The Federal rules restrict any use of the information to criminally investigate or prosecute any alcohol or drug abuse patient.[facility] HospitalIn the event this information is protected by the Federal Confidentiality of Alcohol and Drug Abuse Patient Records regulations: The Federal rules restrict any use of the information to criminally investigate or prosecute any alcohol or drug abuse patient.[facility] HospitalIn the event this information is protected by the Federal Confidentiality of Alcohol and Drug Abuse Patient Records regulations: The Federal rules restrict any use of the information to criminally investigate or prosecute any alcohol or drug abuse patient.[facility] HospitalIn the event this information is protected by the Federal Confidentiality of Alcohol and Drug Abuse Patient Records regulations: The Federal rules restrict any use of the information to criminally investigate or prosecute any alcohol or drug abuse patient.[facility] HospitalIn the event this information is protected by the Federal Confidentiality of Alcohol and Drug Abuse Patient Records regulations: The Federal rules restrict any use of the information to criminally investigate or prosecute any alcohol or drug abuse patient.[facility] HospitalIn the event this information is protected by the Federal Confidentiality of Alcohol and Drug Abuse Patient Records regulations: The Federal rules restrict any use of the information to criminally investigate or prosecute any alcohol or drug abuse patient.[facility] the event this information is protected by the Federal Confidentiality of Alcohol and Drug Abuse Patient Records regulations: The Federal rules restrict any use of the information to criminally investigate or prosecute any alcohol or drug abuse patient.[facility] the event this information is protected by the Federal Confidentiality of Alcohol and Drug Abuse Patient Records regulations: The Federal rules restrict any use of the information to criminally investigate or prosecute any alcohol or drug abuse patient.[facility] the event this information is protected by the Federal Confidentiality of Alcohol and Drug Abuse Patient Records regulations: The Federal rules restrict any use of the information to criminally investigate or prosecute any alcohol or drug abuse patient.[facility] Clinic[facility] the event this information is protected by the Federal Confidentiality of Alcohol and Drug Abuse Patient Records regulations: The Federal rules restrict any use of the information to criminally investigate or prosecute any alcohol or drug abuse patient.[facility] Hospital[facility] the event this information is protected by the Federal Confidentiality of Alcohol and Drug Abuse Patient Records regulations: The Federal rules restrict any use of the information to criminally investigate or prosecute any alcohol or drug abuse patient.[facility] HospitalIn the event this information is protected by the Federal Confidentiality of Alcohol and Drug Abuse Patient Records regulations: The Federal rules restrict any use of the information to criminally investigate or prosecute any alcohol or drug abuse patient.[facility] the event this information is protected by the Federal Confidentiality of Alcohol and Drug Abuse Patient Records regulations: The Federal rules restrict any use of the information to criminally investigate or prosecute any alcohol or drug abuse patient.[facility] HospitalIn the event this information is protected by the Federal Confidentiality of Alcohol and Drug Abuse Patient Records regulations: The Federal rules restrict any use of the information to criminally investigate or prosecute any alcohol or drug abuse patient.[facility] HospitalIn the event this information is protected by the Federal Confidentiality of Alcohol and Drug Abuse Patient Records regulations: The Federal rules restrict any use of the information to criminally investigate or prosecute any alcohol or drug abuse patient.[facility] HospitalIn the event this information is protected by the Federal Confidentiality of Alcohol and Drug Abuse Patient Records regulations: The Federal rules restrict any use of the information to criminally investigate or prosecute any alcohol or drug abuse patient.[facility] HospitalIn the event this information is protected by the Federal Confidentiality of Alcohol and Drug Abuse Patient Records regulations: The Federal rules restrict any use of the information to criminally investigate or prosecute any alcohol or drug abuse patient.[facility] HospitalIn the event this information is protected by the Federal Confidentiality of Alcohol and Drug Abuse Patient Records regulations: The Federal rules restrict any use of the information to criminally investigate or prosecute any alcohol or drug abuse patient.[facility] HospitalIn the event this information is protected by the Federal Confidentiality of Alcohol and Drug Abuse Patient Records regulations: The Federal rules restrict any use of the information to criminally investigate or prosecute any alcohol or drug abuse patient.[facility] Reason for Visit (unrecogniz ed section and content) Reason Comments New Patient fertility check Reason Comments DUB Reason Comments Other PCOS Reason Onset Date Comments Weight Management 07/11/2023 Reason Comments Weight Management Reason Onset Date Comments Refill Request 11/28/2023 Reason Onset Date Comments Refill Request 03/07/2024 Reason Comments Follow Up Bleeding in early pr egnancy Reason Comments ED Follow-up Missed AB Reason Comments Follow Up Discuss plan for pos s MAB Reason Onset Date Comments Methotrexate Injection 04/02/2024 Reason Comments Vaginal Bleeding Amb to ER from home with c/o vaginal bleeding/spotting last 5 days- test positive yesterday--has been to OBGYN for heavier bleeing last week but did not follow through with repeat blood test for following her HCG--also c/o some dizziness today--M1 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 [address] Phone: tel: fax: [facility] [address] [place] [address] Referral ID Status Reason Start Date Expiration Date V isits Requested Visits Authorized [id number] Closed Auto-Generate d Referral 10/31/2024 10/31/2025 1 1 Reason Comments Care Specialty Diagnoses / Procedures Referred By Selene hankins Referred To Contact Diagnoses Family history of genetic disorder History of Hirschsprung disease Procedures CONSULT TO MEDICAL GENETICS - MEDICAL GENETICS COUNSELING EACH 30 MINUTES Marlene Jimenez APRN.CNP [address] [place] [address] Phone: tel: fax: Genetic [address] [address] Referral ID Status Reason Start Date Expiration Date Visits Requested Visits Authorized [id number] Pending Review PCP Requested Referral Auto-Generate d Referral 11/05/2024 11/05/2025 1 1 Reason Onset Date Comments Care 12/31/2024 Reason Onset Date Comments Care 01/28/2025 Specialty Diagnoses / Procedures Referred By Selene hankins Referred To Contact [facility] Diagnoses Encounter for supervision of high risk in first trimester, antepartum (HCC) Procedures OBSTETRIC ULTRASOUND WHI US PREG UTERUS AFTER 1ST TRIMEST GESTATION Marlene Jimenez APRN.CNP [address] [place] [address] Phone: tel: fax: [address] [address] Referral ID Status Reason Start Date Expiration Date V isits Requested Visits Authorized [id number] Closed Auto-Generate d Referral 10/31/2024 10/31/2025 1 1 Reason Onset Date Comments Care 02/25/2025 Reason Comments BP Check Weight Check Reason Comments Question (OB Question) Reason Onset Date Comments Care 03/18/2025 Reason Onset Date Comments Care 03/25/2025 Reason Onset Date Comments Results 03/26/2025 Reason Comments Gestational Diabetes Reason Comments Gestational / Rn Visit Diabetes Specialty Diagnoses / Procedures Referred By Contac t Referred To Contact Diagnoses Diet controlled gestational diabetes mellitus (GDM) in third trimester (HCC) Procedures CONSULT TO DIABETES EDUCATION DSME MEDICAL NUTRITION ASSMT&IVNTJ INDIV EACH 15 W[place] MEDICAL NUTRITION ASSMT&IVNTJ INDIV EACH 15 [place] MEDICAL NUTRITION ASSMT&IVNTJ INDIV EACH 15 WV MEDICAL NUTRITION ASSMT&IVNTJ INDIV EACH 15 [place] Nicolette Bobo APRN.MARCELLA [address] [place] [address] Phone: tel: fax: Referral ID Status Reason Start Date Expiration Date V isits Requested Visits Authorized [id number] Closed PCP Requested Referral 03/27/2025 03/27/2026 1 1 Reason Comments Patient Update Specialty Diagnoses / Procedures Referred By Contac t Referred To Contact [facility] Diagnoses GDM, class A1 (HCC) Procedures OBSTETRIC ULTRASOUND WHI US PREG UTERUS AFTER 1ST TRIMEST GESTATION Nicolette Bobo APRN.EUGENIA [address] [place] [address] Phone: tel: fax: [facility] [address] [place] [address] Referral ID Status Reason Start Date Expiration Date V isits Requested Visits Authorized [id number] Closed Auto-Generate d Referral 03/27/2025 03/27/2026 5 1 Reason Comments 24 hour Urine Reason Onset Date Comments Care 04/07/2025 Reason Onset Date Comments Care 04/21/2025 Reason Onset Date Comments Care 04/27/2025 Reason Onset Date Comments Care 05/12/2025 Reason Comments OB Elevated BP Reason Onset Date Comments Care 05/15/2025 Specialty Diagnoses / Procedures Referred By Contac t Referred To Contact [facility] Diagnoses Supervision of high risk in third trimester (HCC) Insulin controlled gestational diabetes mellitus (GDM) in third trimester ([facility]) Obesity affecting in third trimester, unspecified obesity type ([facility]) 34 weeks gestation of ([facility]) Procedures OBSTETRIC ULTRASOUND WHI US PREG UTERUS AFTER 1ST TRIMEST GESTATION Merry White MD [address] [place] [address] Phone: tel: fax: [address] [address] Referral ID Status Reason Start Date Expiration Date V isits Requested Visits Authorized [id number] Closed Auto-Generate d Referral 05/07/2025 05/07/2026 1 1 Reason Onset Date Comments Care 05/19/2025 Specialty Diagnoses / Procedures Referred By Contac t Referred To Contact [facility] Diagnoses Obesity affecting in second trimester, unspecified obesity type ([facility]) Supervision of other high risk pregnancies, third trimester ([facility]) Marginal insertion of umbilical cord affecting management of mother in third trimester ([facility]) Procedures OBSTETRIC ULTRASOUND WHI US PREG UTERUS AFTER 1ST TRIMEST GESTATION Merry White MD [address] [place] [address] Phone: tel: fax:[phone] [address] Referral ID Status Reason Start Date Expiration Date V isits Requested Visits Authorized [id number] Closed Auto-Generate d Referral 03/25/2025 03/25/2026 2 1 Reason Onset Date Comments Care 05/22/2025 Care Teams (unrecognized sec tion and content) Team Status: Active Member Role Status Dates No Primary Care Physician Primary Care Provider Active Team Status: Inactive Member Role Status Dates Leona nEriquez NP, SLIP CASTER-C Attending Provider, Referring Pro vider Active No Primary Care Physician Primary Care Provider Active Team Status: Active Member Role/Relationship Status Dates No Primary Care Physician Primary Care Provider Active Team Status: Inactive Member Role/Relationship Status Dates No Primary Care Physician Primary Care Provider Active Start: May 06, 2025 End: May 06, 2025 Nicolette Bobo CNM Attending Provider Active Start: May 06, 2025 End: May 06, 2025 Nicoletteluba Bobo EUGENIA Referring Provider Active Start: May 06, 2025 End: May 06, 2025 Team Status: Inactive Member Role/Relationship Status Dates No Primary Care Physician Primary Care Provider Active Start: May 14, 2025 End: May 14, 2025 Dr. Araceli Medrano DO Attending Provider Active Start: May 14, 2025 End: May 14, 2025 Dr. Araceli Medrano DO Referring Provider Active Start: May 14, 2025 End: May 14, 2025 Goals (unrecognized section and content) Goals may be documented in a n alternate sectionGoals may be documented in an alternate sectionGoals may be documented in an alternate sectionGoals may be documented in an alternate section Scheduled Active and Recently Administ ered Medications (unrecognized section and content) Medication Order 03/26/2024 03/27/2024 03/28/2024 cephalexin (Keflex) capsule 500 mg (COMPLETED) 500 mg, oral, Once, On Sun03/28/24 at 2215, For 1 dose, Suspected Indication (Select all that apply): Urinary Tract Infection, Type of Therapy: Empiric, Type of Urinary Tract Infection: Uncomplicated, Indications: Urinary Tract Infection 2225 (Given - Provid er: Tova Huff RN) sodium chloride 0.9 % bolus 1,000 mL (COMPLETED) 1,000 mL, intravenous, at 999 mL/hr, Administer over 1 Hours, Once, On Sun03/28/24 at 1900, For 1 dose 2052 (New Bag - Prov ider: Roberta Quinn RN)2152 (Stopped - Provider: Roberta Quinn RN) FOR RECORDS PERTAINING TO PATIENTS WHO ARE OR HAVE BEEN ENROLLED IN A CHEMICAL DEPENDENCY/SUBSTANCEABUSE PROGRAM, SOME INFORMATION MAY BE OMITTED. This clinical summary was aggregated from multiple sources. Caution should be exercised in using it in the provision of clinical care. This summary normalizes information from multiple sources, and as a consequence, information in this document may materially change the coding, format and clinical context of patient data. In addition, data may be omitted in some cases. CLINICAL DECISIONS SHOULD BE BASED ON THE PRIMARY CLINICAL RECORDS. [facility]. provides no warranty or guarantee of the accuracy or completeness of information in this document.
[2025-05-24 19:21] VITALS: BMI 41.2
--- OUTSIDE RECORDS SUMMARY | 2025-05-24 19:24 | XMS RPT_ITS | CCD ---
Author Organization [facility] ion [facility] Care Team Providers Care Client Customer Manager Name Role Phone Required, No Pcp Unavailable [...] Unavailable Nicolette Bobo CNM Attending Provider [phone] Nicolette Bobo CNM Referring Provider [phone] Dr. Araceli Medrano DO Attending Provider Dr. [...] Attending Unavailable CHRISTOPHER MERRY Jennifer Referring Unavailable CHRISTOPHER MERRY L Referring Unavailable GEORGE VIEIRA Attending Unavailable GEORGE IVEIRA Referring Unavailable MERRY WHITE Attending Unavailable HAURY, [...] Referring Unavailable HAURY, MARLENE Referring Unavailable CHRISTOPHER, MRERY L Attending Unavailable HAURY, MARLENE Referring Unavailable CHRISTOPHER, MERRY L Attending Unavailable HAURY, MARLENE Attending Unavailable DARIEL, KARMON Referring Unavailable DARIEL, KARMON Attending Unavailable HAURY, MARLENE Attending Unavailable Allergies Allergy Classification Reported Allergen(s) Allergy Type Date of Onset Reaction(s) Facility (20 sources) Amoxicillin; Translations: [Amoxicillin CAPS] Drug Allergy 01-09-2017 Rash [facility] Other Phone (unformatted): [phone] (1 source) Azithromycin Drug Allergy Unknown [facility] Other Phone (unformatted): [phone] (20 sources) Azithromycin; Translations: [azithromycin] Drug Allergy 01-09-2017 [facility] (1 source) Amoxicillin Drug Allergy 05-14-2025 [facility] Repository (1 source) Azithromycin Drug Allergy 05-14-2025 [facility] Repository Medications Current Medications Medication Drug Class(es) [...] on above: Take 1 capsule by mo [facility] daily before breakfast for 90 days. Take 1 tablet by bree daily before breakfast for 90 days. [id number]-diio-XQ-x9-tut-c pa-fish (2 sources) Start: 05-06-2025 [id number]-dthw-ZR-n9-pcz- epa-fish Active PO May 06, 2025 12:00am [...] Comment on above: Take 1 Lozenge by [facility] every 2 hours as needed. cephalexin 500 [...] nasal spray Indications: URI, acute Use 1 [place] in each nostril once daily. 1 Bottle 0 01/03/2019 03/18/2024 Discontinued Comment on above: Use 1 [place] in each nostril once daily. 12 hr guaiFENesin 600 mg extended release oral tablet (15 sources) Start: 01-03-2019 End: 03-18-2024 take 2 tablets by mouth twice daily guaiFENesin (MUCINEX) 600 mg 12 hr tablet Indications: URI, acute Take 2 tablets by mouth twice daily. 30 tablet 1 01/03/2019 03/18/2024 Discontinued Comment on above: Take 2 tablets by [facility] twice daily. 8 ml methotrexate 25 mg/ml [...] Comment on above: Take 1 tablet by [facility] once daily. omeprazole 40 mg delayed release oral capsule (15 sources) Proton Pump Inhibitor Start: 09-25-2017 End: 03-18-2024 take 1 capsule by mouth once daily Omeprazole 40 mg capsule Indications: GERD without esophagitis Take 1 capsule by mouth once daily. 30 capsule 0 09/25/2017 03/18/2024 Discontinued Comment on above: Take 1 capsule by mo [facility] once daily. pseudoephedrine hydrochloride 30 mg oral [...] 5 Glucose Ql (U) Negative Neg mg/dL [facility] Interpretation and review of laboratory results Normal [facility] Protein.monoclonal (U) [Mass/Vol] Negative Neg mg/dL [facility] Examination level ultrasound on 05-19-2025 [facility] Radiology Study observation (narrative) [facility] URINE OB DIP B/Oon 5 Glucose Ql (U) Negative Neg mg/dL [facility] Interpretation and review of laboratory results Normal [facility] Protein.monoclonal (U) [Mass/Vol] Negative Neg mg/dL [facility] Examination level ultrasound on 05-15-2025 [facility] Radiology Study observation (narrative) [facility] OB Triage Physician Noteon 0 05-15-2025 OB Triage Physician Note [facility] Medical Records Department [address] [place] [address] OB Triage Physician Note 05/15/257 MR#: [id number] Acct: [id number] Name: MILLIE WATKINS Rep #: [id number] : 1995 29 From: Araceli Medrano DO PCP: Care Physician,No Primary Status:DEP CLI Y Location: [facility] HPI - General General Date of Admission: 05/14/25 Date of Service: 05/07/25 Chief Complaint: elevated blood pressure HPI Narrative MILLIE WATKINS, is a 29 F who presents with elevated blood pressure at home. No severe LINDER, visoin changes, nausea and vomiting. PFSH PFSH Home Medications ???Medication ???Instructions ???Recorded ???Last Taken ???Type [id number]-bfi -epa-fish PO 05/06/25 Unknown History aspirin 81mg [...] DO; No Primary Care Physician Signed Normal [facility] URINE OB DIP B/Oon 5 Glucose Ql (U) Negative Neg mg/dL [facility] Interpretation and review of laboratory results Normal [facility] Protein.monoclonal (U) [Mass/Vol] Negative Neg mg/dL [facility] AST(SGOT)on 05-14-2025 AST [Catalytic activity/Vol] 15 U/L Normal <=31 [facility] Comment on above: Performed By: #### L 100.0500, L501.4100, L501.4405, L501.0900, L501.1105, L501.1400 #### [facility] Laboratory [address] [place], [address] Alanine Aminotransferas (SGP T)on 05-14-2025 ALT [Catalytic activity/Vol] 12 U/L Normal <=34 [facility] Comment on above: Performed By: #### L 100.0500, L501.4100, L501.4405, L501.0900, L501.1105, L501.1400 #### [facility] [address] [place], [address] CBC-Complete Blood Cnt No Di ffon 05-14-2025 Erythrocyte distribution width (RBC) [Ratio] 13.3 % Normal 11.6-14.6 [facility] Comment on above: Performed By: #### L 100.0500, L501.4100, L501.4405, L501.0900, L501.1105, L501.1400 #### [facility] [address] [place], [address] Hematocrit (Bld) [Volume fraction] 34.4 % Low 37-47 [facility] Comment on above: Performed By: #### L 100.0500, L501.4100, L501.4405, L501.0900, L501.1105, L501.1400 #### [facility] [address] [place], [address] Hemoglobin (Bld) [Mass/Vol] 11.5 g/dL Low 12.0-15.0 [facility] Comment on above: Performed By: #### L 100.0500, L501.4100, L501.4405, L501.0900, L501.1105, L501.1400 #### [facility] [address], [address] MCH (RBC) [Entitic mass] 29.7 pg Normal 27.0-32.0 [facility] Comment on above: Performed By: #### L 100.0500, L501.4100, L501.4405, L501.0900, L501.1105, L501.1400 #### [facility] [address] [place], [address] MCHC (RBC) [Mass/Vol] 33.4 g/dL Normal 32-36 [facility] Comment on above: Performed By: #### L 100.0500, L501.4100, L501.4405, L501.0900, L501.1105, L501.1400 #### [facility] [address] [place], [address] MCV (RBC) [Entitic vol] 88.9 fL Normal 81-99 [facility] Comment on above: Performed By: #### L 100.0500, L501.4100, L501.4405, L501.0900, L501.1105, L501.1400 #### [facility] [address] [place], [address] Platelet mean volume (Bld) [Entitic vol] 10.6 fL Normal 6.2-12.0 [facility] Comment on above: Performed By: #### L 100.0500, L501.4100, L501.4405, L501.0900, L501.1105, L501.1400 #### [facility] [address] [place], [address] Platelets (Bld) [#/Vol] 265 10*3/uL Normal 150-450 [facility] Comment on above: Performed By: #### L 100.0500, L501.4100, L501.4405, L501.0900, L501.1105, L501.1400 #### [facility] [address] [place], [address] RBC (Bld) [#/Vol] 3.87 10*6/uL Low 4.2-5.4 [facility] [place] Comment on above: Performed By: #### L 100.0500, L501.4100, L501.4405, L501.0900, L501.1105, L501.1400 #### [facility] [address] [place], [address] RDW SD 43.4 fl Normal 35.1-43.9 [facility] Comment on above: Performed By: #### L 100.0500, L501.4100, L501.4405, L501.0900, L501.1105, L501.1400 #### [facility] [address] [place], [address] WBC (Bld) [#/Vol] 9.7 10*3/uL Normal 4.4-11.0 [facility] Comment on above: Performed By: #### L 100.0500, L501.4100, L501.4405, L501.0900, L501.1105, L501.1400 #### [facility] [address] [place], [address] Rocio 05-14-2025 CNPN Telephone (OBGYWM) MILLIE WATKINS ([id number]) 1995 F Date Time Provider Department 05/14/25 [...] without significant pr*05/07/2025 05/07/2025 Encounter Status:Closed by ZAHRA BAEZ on 05/14/25 Normal [facility] Erythrocyte distribution wid th ratioOrdered By: Araceli Medrano on 05-14-2025 Erythrocyte distribution width (RBC) [Ratio] 13.3 % 11.6-14.6 [facility] Erythrocyte distribution wid th standard deviationOrdered By: Araceli Medrano on 05-14-2025 Erythrocyte distribution width (RBC) [Ratio] 43.4 fl 35.1-43.9 [facility] Glomerular filtration rate ( GFR) estimation/1.73 sq m using serum, plasma, or whole bOrdered By: Araceli Medrano on 05-14-2025 GFR/1.73 sq M.predicted among non-blacks MDRD (S/P/Bld) [Vol rate/Area] 129 mL/min/{1.73_m2} >60 [facility] Comment on above: mL/min/1.73m2 CKD-EP I Creatinine Equation (2020) Hematocrit Auto (Bld) [Volum e fraction]Ordered By: Araceli Medrano on 05-14-2025 Hematocrit (Bld) [Volume fraction] 34.4 % Low 37-47 [facility] Hemoglobin measurementOrdere d By: Araceli Medrano on 05-14-2025 Hemoglobin (Bld) [Mass/Vol] 11.5 g/dL Low 12.0-15.0 [facility] Laboratory - Chemistry and C hemistry - challengeOrdered By: Araceli Medrano on 05-14-2025 AST [Catalytic activity/Vol] 15 U/L <32 [facility] MCV (mean corpuscular volume ) determinationOrdered By: Araceli Medrano on 05-14-2025 MCV (RBC) [Entitic vol] 88.9 fL 81-99 [facility] Mean corpuscular hemoglobin (MCH) determinationOrdered By: Araceli Medrano on 05-14-2025 MCH (RBC) [Entitic mass] 29.7 pg 27.0-32.0 [facility] Mean corpuscular hemoglobin concentration (MCHC) determinationOrdered By: Araceli Medrano on 05-14-2025 MCHC (RBC) [Mass/Vol] 33.4 g/dL 32-36 [facility] Mean platelet volume determi nationOrdered By: Araceli Medrano on 05-14-2025 Platelet mean volume (Bld) [Entitic vol] 10.6 fL 6.2-12.0 [facility] Platelet countOrdered By: Sa ra Medrano on 05-14-2025 Platelets (Bld) [#/Vol] 265 10*3/uL 150-450 [facility] Protein+Creatinine Ratio,Uri neon 05-14-2025 PROT:CRE RATIO 141 mg/g CRE Normal 0-200 [facility] Comment on above: Performed By: #### L 100.0500, L501.4100, L501.4405, L501.0900, L501.1105, L501.1400 #### [facility] [address] [place], [address] Protein (U) [Mass/Vol] 7.3 mg/dL Normal 0.0-12.0 [facility] Comment on above: Performed By: #### L 100.0500, L501.4100, L501.4405, L501.0900, L501.1105, L501.1400 #### [facility] [address] [place], [address] UR CREAT 51.50 mg/dL Normal 28.00-217.00 [facility] Comment on above: Performed By: #### L 100.0500, L501.4100, L501.4405, L501.0900, L501.1105, L501.1400 #### [facility] [address] [place], [address] RBC Auto (Bld) [#/Vol]Ordere d By: Araceli Medrano on 05-14-2025 RBC (Bld) [#/Vol] 3.87 10*6/uL Low 4.2-5.4 [facility] [place] Random urine creatinine harvinder urement (mass/volume)Ordered By: Araceli Medrano on 05-14-2025 Creatinine Unsp time (U) [Mass/Vol] 51.50 mg/dL 28.00-217.00 [facility] Serum Creatinine AND GFRon 0 05-14-2025 Creatinine [Mass/Vol] 0.51 mg/dL Low 0.70-1.20 [facility] Comment on above: Performed By: #### L 100.0500, L501.4100, L501.4405, L501.0900, L501.1105, L501.1400 #### [facility] [address] [place], [address] ECRCL 193.88 ml/min Normal 50-250 [facility] Comment on above: Performed By: #### L 100.0500, L501.4100, L501.4405, L501.0900, L501.1105, L501.1400 #### [facility] [address] [place], [address] GFR/1.73 sq M.predicted among non-blacks MDRD (S/P/Bld) [Vol rate/Area] 129 mL/min/{1.73_m2} Normal >60 [facility] Comment on above: Result Comment: mL/m in/1.73m2 CKD-EPI Creatinine Equation (2020) Performed By: #### L 100.0500, L501.4100, L501.4405, L501.0900, L501.1105, L501.1400 #### [facility] [address] [place], [place], [phone] Serum creatinine measurement (mass/volume)Ordered By: Araceli Medrano on 05-14-2025 Creatinine [Mass/Vol] 0.51 mg/dL Low 0.70-1.20 [facility] Serum or plasma alanine pak otransferase (ALT) measurementOrdered By: Araceli Medrano on 05-14-2025 ALT [Catalytic activity/Vol] 12 U/L <35 [facility] Serum or plasma uric acid me asurement (mass/volume)Ordered By: Araceil Medrano on 05-14-2025 Urate [Mass/Vol] 4.6 mg/dL 2.6-6.0 [facility] Comment on above: The drugs N-Acetylcy steine and Metamizole may falsely depress this assay. Uric Acidon 05-14-2025 URIC 4.6 mg/dL Normal 2.6-6.0 [facility] Comment on above: Result Comment: The drugs N-Acetylcysteine and Metamizole may falsely depress this assay. Performed By: #### L 100.0500, L501.4100, L501.4405, L501.0900, L501.1105, L501.1400 #### [facility] [address] [place], [place], [phone] Urine protein measurement (m ass/volume)Ordered By: Araceli Medrano on 05-14-2025 Protein (U) [Mass/Vol] 7.3 mg/dL 0.0-12.0 [facility] Urine protein/creatinine mas s ratioOrdered By: Araceli Medrano on 05-14-2025 Protein/Creatinine (U) [Mass ratio] 141 mg/g CRE 0-200 [facility] White blood cell (WBC) count Ordered By: Araceli Medrano on 05-14-2025 WBC (Bld) [#/Vol] 9.7 10*3/uL 4.4-11.0 [facility] ROUTINE, GROUP B ST REPTOCOCCUS BY PCRon 05-12-2025 ROUTINE, GROUP B STREPTOCOCCUS BY PCR Not detected Normal [facility] Comment on above: Performed By: #### G BPCR ####[facility] LABCLIA [id number] [address] [facility] URINE OB DIP B/Oon Glucose Ql (U) Negative Neg mg/dL [facility] Interpretation and review of laboratory results Normal [facility] Protein.monoclonal (U) [Mass/Vol] Negative Neg mg/dL [facility] AST(SGOT)Ordered By: Demar Bobo on 05-06-2025 AST [Catalytic activity/Vol] 18 U/L Normal <=31 [facility] Comment on above: Performed By: #### L 100.0500, L501.4405, L501.4100, L501.1105, L501.0900, L501.1400 ####[facility] [address] [place], [place], [phone] Automated blood erythrocyte countOrdered By: Nicolette Bobo on 05-06-2025 RBC (Bld) [#/Vol] 3.90 10*6/uL Low 4.2-5.4 [facility] Comment on above: Performed By: #### L 100.0500, L501.4405, L501.4100, L501.1105, L501.0900, L501.1400 #### [facility] [address] [place], [place], [phone] Automated blood hematocrit ( percentage)Ordered By: Nicolette Bobo on 05-06-2025 Hematocrit (Bld) [Volume fraction] 35.0 % Low 37-47 [facility] Comment on above: Performed By: #### L 100.0500, L501.4405, L501.4100, L501.1105, L501.0900, L501.1400 #### [facility] [address] [place], [address] CBC-Complete Blood Cnt No Di ffon 05-06-2025 RDW SD 44.3 fl High 35.1-43.9 [facility] Comment on above: Performed By: #### L 100.0500, L501.4405, L501.4100, L501.1105, L501.0900, L501.1400 #### [facility] [address] [place], [address] CNPShobha 05-06-2025 CNPN Telephone (OBGYWM) MILLIE WATKINS ([id number]) 1995 F Date Time Provider Department 05/06/25 [...] someone drive her. I called Agnieszka at [facility] and informed her. Copy of Episode sent to [facility] Allergies As of Date: 05/06/2025 [...] LALI AGUIAR on 05/06/25 Normal [facility] Erythrocyte distribution wid th ratioOrdered By: Nicolette Bobo on 05-06-2025 Erythrocyte distribution width (RBC) [Ratio] 13.6 % Normal 11.6-14.6 [facility] Comment on above: Performed By: #### L 100.0500, L501.4405, L501.4100, L501.1105, L501.0900, L501.1400 #### [facility] [address] [place], [address] Erythrocyte distribution wid th standard deviationOrdered By: Nicolette Bobo on 05-06-2025 Erythrocyte distribution width (RBC) [Ratio] 44.3 fl High 35.1-43.9 [facility] Glomerular filtration rate ( GFR) estimation/1.73 sq m using serum, plasma, or whole bOrdered By: Nicolette Bobo on 05-06-2025 GFR/1.73 sq M.predicted among non-blacks MDRD (S/P/Bld) [Vol rate/Area] 129 mL/min/{1.73_m2} Normal >60 [facility] Comment on above: mL/min/1.73m2 CKD-EP I Creatinine Equation (2020) Result Comment: mL/m in/1.73m2 CKD-EPI Creatinine Equation (2020) Performed By: #### L 100.0500, L501.4405, L501.4100, L501.1105, L501.0900, L501.1400 ####[facility] [address], [address] Hemoglobin measurementOrdere d By: Nicolette Bobo on 05-06-2025 Hemoglobin (Bld) [Mass/Vol] 11.7 g/dL Low 12.0-15.0 [facility] Comment on above: Performed By: #### L 100.0500, L501.4405, L501.4100, L501.1105, L501.0900, L501.1400 #### [facility] [address], [address] MCV (mean corpuscular volume ) determinationOrdered By: Nicolette Bobo on 05-06-2025 MCV (RBC) [Entitic vol] 89.7 fL Normal 81-99 [facility] Comment on above: Performed By: #### L 100.0500, L501.4405, L501.4100, L501.1105, L501.0900, L501.1400 #### [facility] [address] [place], [place], [phone] Mean corpuscular hemoglobin (MCH) determinationOrdered By: Nicolette Bobo on 05-06-2025 MCH (RBC) [Entitic mass] 30.0 pg Normal 27.0-32.0 [facility] Comment on above: Performed By: #### L 100.0500, L501.4405, L501.4100, L501.1105, L501.0900, L501.1400 #### [facility] [address] [place], [address] Mean corpuscular hemoglobin concentration (MCHC) determinationOrdered By: Nicolette Bobo on 05-06-2025 MCHC (RBC) [Mass/Vol] 33.4 g/dL Normal 32-36 [facility] Comment on above: Performed By: #### L 100.0500, L501.4405, L501.4100, L501.1105, L501.0900, L501.1400 #### [facility] [address] [place], [place], [phone] Mean platelet volume determi nationOrdered By: Nicolette Bobo on 05-06-2025 Platelet mean volume (Bld) [Entitic vol] 10.7 fL Normal 6.2-12.0 [facility] Comment on above: Performed By: #### L 100.0500, L501.4405, L501.4100, L501.1105, L501.0900, L501.1400 #### [facility] [address] [place], [place], [phone] OB Triage Physician Noteon 0 05-06-2025 OB Triage Physician Note [facility] Medical Records Department [address] [place] [address] OB Triage Physician Note 05/06/25 1744 MR#: [id number] Acct: [id number] Name: MILLIE WATKINS Rep #: [id number] : 1995 29 From: Nicolette Bobo CNM PCP: Care Physician,No Primary Status:REG CLI Y Location: [place] [id number] HPI - General HPI Narrative MILLIE WATKINS, [...] Medications ???Medication ???Instructions ???Recorded ???Last Taken ???Type [id number]-dqiu-GL-a5-mod -epa-fish PO 05/06/25 Unknown History aspirin 81mg [...] Cosigner Signature (if applicable): Date CC: EUGENIA Boob; No Primary Care Physician Signed ADDENDUM by EUGENIA Bobo on 05/06/25 at 1806 Addendum Patient VIRGIL 06/14/25 34.3 days gestation 05/06/251805 Date Nicolette Bobo CNM cc: EUGENIA Bobo; No Primary Care Physician * Signed Normal [facility] Platelet countOrdered By: Mikayla Bobo on 05-06-2025 Platelets (Bld) [#/Vol] 279 10*3/uL Normal 150-450 [facility] Comment on above: Performed By: #### L 100.0500, L501.4405, L501.4100, L501.1105, L501.0900, L501.1400 #### [facility] [address] [place], [address] Protein+Creatinine Ratio,Uri neon 05-06-2025 PROT:CRE RATIO 240 mg/g CRE High 0-200 [facility] Comment on above: Performed By: #### L 100.0500, L501.4405, L501.4100, L501.1105, L501.0900, L501.1400 ####[facility] [address] [place], [place], [phone] Random urine creatinine harvinder urement (mass/volume)Ordered By: Nicolette Bobo on 05-06-2025 Creatinine Unsp time (U) [Mass/Vol] 26.90 mg/dL Low 28.00-217.00 [facility] Comment on above: Previous reported re sult: 26.00 mg/dLEdited by: KIRK on 05/06/25:1627 AMENDED REPORT 05/06/25 1627 UR CREAT previously reported as: 26.00 L mg/dL Serum Creatinine AND GFRon 0 05-06-2025 ECRCL 187.87 ml/min Normal 50-250 [facility] Comment on above: Performed By: #### L 100.0500, L501.4405, L501.4100, L501.1105, L501.0900, L501.1400 ####[facility] [address] [place], [place], [id number] Serum creatinine measurement (mass/volume)Ordered By: Nicolette Bobo on 05-06-2025 Creatinine [Mass/Vol] 0.52 mg/dL Low 0.70-1.20 [facility] Comment on above: Performed By: #### L 100.0500, L501.4405, L501.4100, L501.1105, L501.0900, L501.1400 ####[facility] [address] [place], [address] Serum or plasma alanine pak otransferase (ALT) measurementOrdered By: Nicolette Bobo on 05-06-2025 ALT [Catalytic activity/Vol] 20 U/L Normal <=34 [facility] Comment on above: Performed By: #### L 100.0500, L501.4405, L501.4100, L501.1105, L501.0900, L501.1400 ####[facility] [address] [place], [place], [phone] Serum or plasma uric acid me asurement (mass/volume)Ordered By: Nicolette Bobo on 05-06-2025 Urate [Mass/Vol] 4.6 mg/dL 2.6-6.0 [facility] Comment on above: The drugs N-Acetylcy steine and Metamizole may falsely depress this assay. Uric Acidon 05-06-2025 URIC 4.6 mg/dL Normal 2.6-6.0 [facility] Comment on above: Result Comment: The drugs N-Acetylcysteine and Metamizole may falsely depress this assay. Performed By: #### L 100.0500, L501.4405, L501.4100, L501.1105, L501.0900, L501.1400 ####[facility] [address] [place], [address] Urine protein measurement (m ass/volume)Ordered By: Nicolette Bobo on 05-06-2025 Protein (U) [Mass/Vol] 6.5 mg/dL Normal 0.0-12.0 [facility] Comment on above: Performed By: #### L 100.0500, L501.4405, L501.4100, L501.1105, L501.0900, L501.1400 ####[facility] [address] [place], [place], [id number] Urine protein/creatinine mas s ratioOrdered By: Nicolette Bobo on 05-06-2025 Protein/Creatinine (U) [Mass ratio] 240 mg/g CRE High 0-200 [facility] White blood cell (WBC) count Ordered By: Nicolette Bobo on 05-06-2025 WBC (Bld) [#/Vol] 11.9 10*3/uL High 4.4-11.0 [facility] Comment on above: Performed By: #### L 100.0500, L501.4405, L501.4100, L501.1105, L501.0900, L501.1400 #### [facility] [address] [place], [address] UA DIP, URINE (POC)on 2024 BILIRUBIN UA (POCT) Negative Negative [facility] CLARITY UA (POCT) Clear [facility] COLOR UA (POCT) Yellow [facility] GLUCOSE UA (POCT) Negative Negative mg/dL [facility] Hemoglobin Ql (U) Negative Negative [facility] KETONE UA (POCT) Negative Negative mg/dL [facility] LEUKOCYTES UA (POCT) Negative Negative [facility] NITRITE UA (POCT) Negative Negative [facility] PH UA (POCT) 7 4.5 - 8.0 [facility] Protein Ql (U) Negative Negative mg/dL [facility] SPECIFIC GRAVITY UA (POCT) 1.01 1.005 - 1.030 [facility] UROBILINOGEN UA (POCT) 0.2 Martina l E.U./dL [facility] Location:[facility], [address], [place], [address] [facility] POINT OF CARE [facility] CNPNon 04-21-2025 CNPN Telephone (GENNYGYWM) MILLIE WATKINS ([id number]) 1995 F Date Time Provider Department 04/21/25 [...] EFREN NINO on 04/21/25 Normal [facility] URINE OB DIP B/Oon Glucose Ql (U) Negative Neg mg/dL [facility] Interpretation and review of laboratory results Normal [facility] Protein.monoclonal (U) [Mass/Vol] Negative Neg mg/dL [facility] CNPNon 04-10-2025 CNPN Telephone (OBGYWM) ROLANDMILLIE ([id number]) 1995 F Date Time Provider Department 04/10/25 IREEN [facility] OBGYWM During your visit today, we recorded the following information about you: Zahra Baez RN 04/10/2025 10:48 AM Signed 30w5d Patient viewed 24 hour urine results on Indexing. She would like to know what the [...] ZAHRA BAEZ on 04/10/25 Normal [facility] Prot 24h Ur-mRateon 04-09-20 25 Protein (24H U) [Mass/Time] 0.21 g/24 Hr High <0.15 [facility] Comment on above: Order Comment: Speci men Type: URINE SPECIMENOrdering Facility: [facility] Address: [address] [place] [address] Result Comment: Adul t Proteinuria Categories: <0.15 g/24 hours is considered normal to mildly increased 0.15 - 0.50 g/24 hours is considered moderately increased >0.50 g/24 hours is considered severely increased KDIGO. (2013). KDIGO 2012 Clinical Practice Guideline for the Evaluation and Management of Chronic Kidney Disease. Official Journal of the International Society of Nephrology, 3(1), 1-150. Performed By: #### 2 889-4 ####[facility] LABIA [id number] [place] [id number] [facility] [id number] [place] [address] [place] Protein (24H U) [Mass/Time]o n 04-09-2025 PERIOD (HRS) 24 hr Normal [facility] Comment on above: Order Comment: Speci men Type: URINE SPECIMENOrdering Facility: [facility] Address: [address] [place] [address] Performed By: #### 2 889-4 ####[facility] LABIA [id number] [address] [id number] [place] [address] [place] Specimen volume (24H U) 5.15 L Normal [facility] Comment on above: Order Comment: Speci men Type: URINE SPECIMENOrdering Facility: [facility] Address: [address] [place] [address] Performed By: #### 2 889-4 ####[facility] [id number] [address] [id number] [place] [address] [place] Examination level ultrasound on 04-07-2025 [facility] Radiology Study observation (narrative) Chetan Leyva Prot 24h Ur-mRateon 04-02-20 25 Protein (24H U) [Mass/Time] 0.14 g/24 Hr Normal <0.15 [facility] Comment on above: Order Comment: Speci men Type: URINE SPECIMENOrdering Facility: [facility] Address: [address] [place], [place] [id number] Result Comment: Adul t Proteinuria Categories: <0.15 g/24 hours is considered normal to mildly increased 0.15 - 0.50 g/24 hours is considered moderately increased >0.50 g/24 hours is considered severely increased KDIGO. (2013). KDIGO 2012 Clinical Practice Guideline for the Evaluation and Management of Chronic Kidney Disease. Official Journal of the International Society of Nephrology, 3(1), 1-150. Performed By: #### 2 889-4 ####[facility] LABIA [id number] [address] [id number] [place] [address] [place] Protein (24H U) [Mass/Time]o n 04-02-2025 PERIOD (HRS) 24 hr Normal [facility] Comment on above: Order Comment: Speci men Type: URINE SPECIMENOrdering Facility: [facility] Address: [address] [place] [address] Performed By: #### 2 889-4 ####[facility] [id number] [address] [id number] [place] [address] [place] Specimen volume (24H U) 2.7 L Normal [facility] Comment on above: Order Comment: Speci men Type: URINE SPECIMENOrdering Facility: [facility] Address: [address] [place] [address] Performed By: #### 2 889-4 ####[facility] [id number] [id number] [place] [address] [place] CNNURSEon 03-31-2025 CNNURSE Nurse Visit (EDEDSJ) MILLIE WTAKINS ([id number]) 1995 F Date Time Provider Department 03/31/25 9:00 AM LIDIA PRITCHETT During your visit today, we recorded the following information about you: Lidia Pritchett, RN 03/31/2025 11:03 AM Signed DIABETES SELF-MANAGEMENT EDUCATION AND SUPPORT Location: [facility] Type of visit: Virtual (with video) individual -- I have communicated my name and active licensure. The patient's identity and physical location were verified at the time of this visit. 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 Normal [facility] CNPNon 03-31-2025 CNPN Telephone (AKDIAA) ROLANDMILLIE ([id number]) 1995 F Date Time Provider Department 03/31/25 DAMIEN KHAN During your visit today, we recorded the following information about you: Damien Khan RD 03/31/2025 11:26 AM Signed Nicolette I moved Millie to my schedule on Sunday for the nutrition portion of her Diabetes education. The RD in [place] is not comfortable with and diabetes/GDM. I moved her to my schedule. In the future you can fax the referral to [phone], have the pt call our office and we can schedule them [phone], or send a staff message or CCd [...] Status:Closed by NICOLETTE BOBO on 04/01/25 Normal [facility] Basic metabolic 2000 panelon 03-27-2025 Anion gap [Moles/Vol] 13 mmol/L Normal 8-15 [facility] Comment on above: Order Comment: Speci men Type: BLOOD SPECIMENOrdering Facility: [facility] Address: [address] [place] [address] [place] [address] Performed By: #### 2 4321-2 ####[facility] CHAVA PRATERMOMO [id number] [place] [address] [place] Calcium [Mass/Vol] 9.6 mg/dL Normal 8.5-10.2 [facility] Comment on above: Order Comment: Speci men Type: BLOOD SPECIMENOrdering Facility: [facility] Address: [address] [place] [address] Performed By: #### 2 4321-2 ####[facility]ITAL[facility] [id number] [place] [address] [place] Chloride [Moles/Vol] 103 mmol/L Normal 98-107 [facility] Comment on above: Order Comment: Speci men Type: BLOOD SPECIMENOrdering Facility: [facility] Address: [address] [place] [address] Performed By: #### 2 4321-2 ####[facility]ITALNCLIA [id number] [place] [address] [place] CO2 [Moles/Vol] 20 mmol/L Low 22-30 [facility] Comment on above: Order Comment: Speci men Type: BLOOD SPECIMENOrdering Facility: [facility] Address: [address] [place] [address] Performed By: #### 2 4321-2 ####[facility]ITALNCL[facility] [id number] [place] [address] [place] Creatinine [Mass/Vol] 0.49 mg/dL Low 0.58-0.96 [facility] Comment on above: Order Comment: Speci men Type: BLOOD SPECIMENOrdering Facility: [facility] Address: [address] [place] [address] Performed By: #### 2 4321-2 ####[facility]ITALNCLIA [id number] [place] [address] [place] Creatinine and Glomerular filtration rate.predicted panel (S/P/Bld) 131 mL/min/1.73m??? Normal >=60 [facility] Comment on above: Order Comment: Speci men Type: BLOOD SPECIMENOrdering Facility: [facility] Address: [address] [place] [address] Result Comment: Fabby mated Glomerular Filtration Rate [...] actual GFR. Performed By: #### 2 4321-2 ####[facility] HOSPITALCARYLWinston [id number] [place] [address] [place] Glucose [Mass/Vol] 85 mg/dL Normal 74-99 [facility] Comment on above: Order Comment: Quita valentin Type: BLOOD SPECIMENOrdering Facility: [facility] Address: [address] [place] [address] Result Comment: The [place] Diabetes Association (ADA) provides guidance for cutoff [...] Standards of Medical Care in Diabetes 2016, [place] Diabetes Association. Diabetes Care. 2016.39(Suppl 1). Performed By: #### 2 4321-2 ####[facility] [id number] [place] [address] [place] Potassium [Moles/Vol] 3.9 mmol/L Normal 3.7-5.1 [facility] Comment on above: Order Comment: Quita valentin Type: BLOOD SPECIMENOrdering Facility: [facility] Address: [address] [place] [address] Performed By: #### 2 4321-2 ####[facility] HOSPITALMOMO [id number] [place] [id number] [place] Sodium [Moles/Vol] 136 mmol/L Normal 136-144 [facility] Comment on above: Order Comment: Speci men Type: BLOOD SPECIMENOrdering Facility: [facility] Address: [address] [place], [place] [address] Performed By: #### 2 4321-2 ####[facility] [id number] [address] [place] Urea nitrogen [Mass/Vol] 8 mg/dL Normal 7-21 [facility] Comment on above: Order Comment: Speci men Type: BLOOD SPECIMENOrdering Facility: [facility] Address: [address] [place] [address] Performed By: #### 2 4321-2 ####[facility] [id number] [address] [facility] CNPShobha 03-27-2025 [facility] (OB[facility]WM[facility] MILLIE WATKINS ([id number]) 1995 F Date Time Provider Department 03/27/25 NICOLETTE BOBO During your visit today, we recorded the following information about you: Minda Dela Cruz, JOHN 03/27/2025 3:03 PM Signed Nicolette Bobo APRN.CNM P Wstr Ob-Licensed Aircraft Maintenance Engineer Pool Please notify patient that 3 hour glucose tolerance test came back abnormal. Please order supplies as well as set up appointment with home visit field care manager. She will need growth ultrasound scheduled el. [...] eachRfl: 8 CONSULT TO DIABETES EDUCATION DSME [[id number]] Order #: [id number]: 2 FUTURE CONSULT TO NUTRITION THERAPY [9003] Order #: [id number]: 4 FUTURE Prescriptions as of 03/27/2025 - [...] NICOLETTE BOBO on 03/27/25 Normal [facility] GLUCOSE GESTATIONAL, 1 HOURo n 03-27-2025 Glucose 1 Hr post Unsp challenge [Mass/Vol] 218 mg/dL High 74-179 [facility] Comment on above: Order Comment: Speci men Type: BLOOD SPECIMENOrdering Facility: [facility] Address: [address] [place], [place] [address] [address] Result Comment: [facility] Congress of Obstetricians and Gynecologists (Zackery/Erikan) guidelines state gestational diabetes mellitus is present when 2 or more of the plasma glucose concentrations meet or exceed the following levels: fastin mg/dl, 1 hr: 180 mg/dl, 2 hr: 155 mg/dl, and 3 hr: 140 mg/dl. Performed By: #### G TGST1 ####[facility] [id number] [place] [address] [place] GLUCOSE GESTATIONAL, 2 HOURo n 03-27-2025 Glucose 2 Hr post Unsp challenge [Mass/Vol] 238 mg/dL High 74-154 [facility] Comment on above: Order Comment: Speci barbie Type: BLOOD SPECIMENOrdering Facility: [facility] Address: [address] [place] [address] Result Comment: [facility] Congress of Obstetricians and Gynecologists ([facility]car[employer]/[facility] Servicesalex) guidelines state gestational diabetes mellitus is present when 2 or more of the plasma glucose concentrations meet or exceed the following levels: fastin mg/dl, 1 hr: 180 mg/dl, 2 hr: 155 mg/dl, and 3 hr: 140 mg/dl. Performed By: #### G TGST2 ####[facility] [id number] [place] [address] [place] GLUCOSE GESTATIONAL, 3 HOURo n 03-27-2025 Glucose 3 Hr post Unsp challenge [Mass/Vol] 110 mg/dL Normal 74-139 [facility] Comment on above: Order Comment: Speci men Type: BLOOD SPECIMENOrdering Facility: [facility] Address: [address] [place] [address] Result Comment: [facility] Congress of Obstetricians and Gynecologists ([facility] Hospital[facility]) guidelines state gestational diabetes mellitus is present when 2 or more of the plasma glucose concentrations meet or exceed the following levels: fastin mg/dl, 1 hr: 180 mg/dl, 2 hr: 155 mg/dl, and 3 hr: 140 mg/dl. Performed By: #### G TGST3 ####[facility] [id number] [place] [address] [place] GLUCOSE GESTATIONAL, FASTING on 03-27-2025 Glucose post fast [Mass/Vol] 85 mg/dL Normal 74-94 [facility] Comment on above: Order Comment: Speci men Type: BLOOD SPECIMENOrdering Facility: [facility] Address: [address] [place] [address] Result Comment: [facility] Congress of Obstetricians and Gynecologists (Zackery/Ellen) guidelines state gestational diabetes mellitus is present when 2 or more of the plasma glucose concentrations meet or exceed the following levels: fastin mg/dl, 1 hr: 180 mg/dl, 2 hr: 155 mg/dl, and 3 hr: 140 mg/dl. Performed By: #### G TGSTF ####[facility] [id number] [place] [address] [place] CBC W Auto Differential pane l (Bld)on 03-25-2025 Basophils (Bld) [#/Vol] 0.03 10*3/uL Normal <0.11 [facility] Comment on above: Order Comment: Speci men Type: BLOOD SPECIMENOrdering Facility: [facility] Address: [address] [place] [address] Performed By: #### 5 7021-8 ####[facility] [id number] [place] [address] [place] Basophils/100 WBC (Bld) 0.2 % Normal [facility] Comment on above: Order Comment: Speci men Type: BLOOD SPECIMENOrdering Facility: [facility] Address: [address] [place] [address] Performed By: #### 5 7021-8 ####[facility] [id number] [place] [address] [place] Differential cell count method Nom (Bld) Auto Normal [facility] Comment on above: Order Comment: Speci men Type: BLOOD SPECIMENOrdering Facility: [facility] Address: [address] [place] [address] Performed By: #### 5 7021-8 ####[facility] DAYNEKELBYXIMENAWinston [id number] [place] [address] [place] Eosinophils (Bld) [#/Vol] 0.07 10*3/uL Normal <0.46 [facility] Comment on above: Order Comment: Speci men Type: BLOOD SPECIMENOrdering Facility: [facility] Address: [address] [place] [address] Performed By: #### 5 7021-8 ####[facility]OSPITALCARYLWinston [id number] [place] [address] [place] Eosinophils/100 WBC (Bld) 0.6 % Normal [facility] Comment on above: Order Comment: Speci men Type: BLOOD SPECIMENOrdering Facility: [facility] Address: [address] [place] [address] Performed By: #### 5 7021-8 ####[facility] HOSPITALNCRYAN [id number] [place] [address] [place] Erythrocyte distribution width (RBC) [Ratio] 11.8 % Normal 11.5-15.0 [facility] Comment on above: Order Comment: Speci men Type: BLOOD SPECIMENOrdering Facility: [facility] Address: [address] [place] [address] Performed By: #### 5 7021-8 ####[facility]ITALNCLIA [id number] [place] [address] [place] Hematocrit (Bld) [Volume fraction] 32.4 % Low 36.0-46.0 [facility] Comment on above: Order Comment: Speci men Type: BLOOD SPECIMENOrdering Facility: [facility] Address: [address] [place] [address] Performed By: #### 5 7021-8 ####[facility] DAYNEWCARYLLIA [id number] [place] [address] [place] Hemoglobin (Bld) [Mass/Vol] 11.0 g/dL Low 11.5-15.5 [facility] Comment on above: Order Comment: Speci men Type: BLOOD SPECIMENOrdering Facility: [facility] Address: [address] [place] [address] Performed By: #### 5 7021-8 ####[facility] HOSPITALLIA [id number] [place] [address] [place] Immature granulocytes (Bld) [#/Vol] 0.08 10*3/uL Normal <0.10 [facility] Comment on above: Order Comment: Speci men Type: BLOOD SPECIMENOrdering Facility: [facility] Address: [address] [place] [address] Performed By: #### 5 7021-8 ####[facility] [id number] [place] [address] [place] Immature granulocytes/100 WBC (Bld) 0.7 % Normal [facility] Comment on above: Order Comment: Speci men Type: BLOOD SPECIMENOrdering Facility: [facility] Address: [address] [place] [address] Performed By: #### 5 7021-8 ####[facility] HOSPITALFRANCOISEA [id number] [place] [address] [place] Lymphocytes (Bld) [#/Vol] 1.73 10*3/uL Normal 1.00-4.00 [facility] Comment on above: Order Comment: Speci men Type: BLOOD SPECIMENOrdering Facility: [facility] Address: [address] [place] [address] Performed By: #### 5 7021-8 ####[facility]ITALNCL[facility] [id number] [place] [id number] [place] Lymphocytes/100 WBC (Bld) 14.2 % Normal [facility] Comment on above: Order Comment: Speci men Type: BLOOD SPECIMENOrdering Facility: [facility] Address: [address] [place] [address] Performed By: #### 5 7021-8 ####[facility]ITALNCL[facility] [id number] [place] [address] [place] MCH (RBC) [Entitic mass] 30.1 pg Normal 26.0-34.0 [facility] Comment on above: Order Comment: Speci men Type: BLOOD SPECIMENOrdering Facility: [facility] Address: [address] [place] [address] Performed By: #### 5 7021-8 ####[facility]ITAL[facility] [id number] [place] [address] [place] MCHC (RBC) [Mass/Vol] 34.0 g/dL Normal 30.5-36.0 [facility] Comment on above: Order Comment: Speci men Type: BLOOD SPECIMENOrdering Facility: [facility] Address: [address] [place] [address] Performed By: #### 5 7021-8 ####[facility]ITALNCLIA [id number] [place] [address] [place] MCV (RBC) [Entitic vol] 88.5 fL Normal 80.0-100.0 [facility] Comment on above: Order Comment: Speci men Type: BLOOD SPECIMENOrdering Facility: [facility] Address: [address] [place] [address] Performed By: #### 5 7021-8 ####[facility]ITALNCLIA [id number] [place] [address] [place] Monocytes (Bld) [#/Vol] 0.70 10*3/uL Normal <0.87 [facility] Comment on above: Order Comment: Speci men Type: BLOOD SPECIMENOrdering Facility: [facility] Address: [address] [place] [address] Performed By: #### 5 7021-8 ####[facility] HOSPITALNCXIMENAA [id number] [place] [address] [place] Monocytes/100 WBC (Bld) 5.7 % Normal [facility] Comment on above: Order Comment: Speci men Type: BLOOD SPECIMENOrdering Facility: [facility] Address: [address] [place] [address] Performed By: #### 5 7021-8 ####[facility]ITALNCLIA [id number] [place] [address] [place] Neutrophils (Bld) [#/Vol] 9.59 10*3/uL High 1.45-7.50 [facility] Comment on above: Order Comment: Speci men Type: BLOOD SPECIMENOrdering Facility: [facility] Address: [address] [place] [address] Performed By: #### 5 7021-8 ####[facility]ITALA [id number] [place] [address] [place] Neutrophils/100 WBC (Bld) 78.6 % Normal [facility] [facility] Comment on above: Order Comment: Speci men Type: BLOOD SPECIMENOrdering Facility: [facility] Address: [address] [place] [address] Performed By: #### 5 7021-8 ####[facility] HOSPITALLIA [id number] [place] [address] [place] Nucleated RBC (Bld) [#/Vol] 10*3/uL Normal <0.01 [facility] Comment on above: Order Comment: Speci men Type: BLOOD SPECIMENOrdering Facility: [facility] Address: [address] [place] [address] Performed By: #### 5 7021-8 ####[facility] DAYNEKELBYLIA [id number] [place] [address] [place] Nucleated RBC/100 WBC (Bld) [Ratio] 0.0 /100 WBC Normal [facility] Comment on above: Order Comment: Speci men Type: BLOOD SPECIMENOrdering Facility: [facility] Address: [address] [place] [address] Performed By: #### 5 7021-8 ####[facility] HOSPITALFRANCOISEA [id number] [place] [address] [place] Platelet mean volume (Bld) [Entitic vol] 9.9 fL Normal 9.0-12.7 [facility] Comment on above: Order Comment: Speci men Type: BLOOD SPECIMENOrdering Facility: [facility] Address: [address] [place] [address] Performed By: #### 5 7021-8 ####[facility]PITALA [id number] [place] [address] [place] Platelets (Bld) [#/Vol] 320 10*3/uL Normal 150-400 [facility] Comment on above: Order Comment: Speci men Type: BLOOD SPECIMENOrdering Facility: [facility] Address: [address] [place] [address] Performed By: #### 5 7021-8 ####[facility] HOSPITALLIA [id number] [place] [address] [place] RBC (Bld) [#/Vol] 3.66 10*6/uL Low 3.90-5.20 [facility] Comment on above: Order Comment: Speci men Type: BLOOD SPECIMENOrdering Facility: [facility] Address: [address] [place] [address] Performed By: #### 5 7021-8 ####[facility] HOSPITALNCLI [id number] [place] [address] [place] WBC (Bld) [#/Vol] 12.20 10*3/uL High 3.70-11.00 [facility] Comment on above: Order Comment: Speci men Type: BLOOD SPECIMENOrdering Facility: [facility] Address: [address] [place] [address] Performed By: #### 5 7021-8 ####[facility] HOSPITALCARYLLIWinston [id number] [place] [address] [place] Comprehensive metabolic 2000 panelon 03-25-2025 Albumin [Mass/Vol] 3.5 g/dL Low 3.9-4.9 [facility] Comment on above: Order Comment: Speci men Type: BLOOD SPECIMENOrdering Facility: [facility] Address: [address] [place] [address] Performed By: #### 2 4323-8, 308-1 ####[facility] HOSPITALCARYLWinston [id number] [place] [address] [place] ALP [Catalytic activity/Vol] 103 U/L Normal 34-123 [facility] Comment on above: Order Comment: Speci men Type: BLOOD SPECIMENOrdering Facility: [facility] Address: [address] [place] [address] Performed By: #### 2 4323-8, 3084-1 ####[facility] HOSPITALWCARYLLIA [id number] [place] [address] [place] ALT [Catalytic activity/Vol] 9 U/L Normal 7-38 [facility] Comment on above: Order Comment: Speci men Type: BLOOD SPECIMENOrdering Facility: [facility] Address: [address] [place] [address] Performed By: #### 2 4323-8, 3084-1 ####[facility] HOSPITALCARYLLIA [id number] [place] [address] [place] Anion gap [Moles/Vol] 11 mmol/L Normal 8-15 [facility] Comment on above: Order Comment: Speci men Type: BLOOD SPECIMENOrdering Facility: [facility] Address: [address] [place] [address] Performed By: #### 2 4323-8, 3083- ####[facility] HOSPITALWNCLIA [id number] [place] [address] [place] AST [Catalytic activity/Vol] 8 U/L Low 13-35 [facility] Comment on above: Order Comment: Speci men Type: BLOOD SPECIMENOrdering Facility: [facility] Address: [address] [place] [address] Performed By: #### 2 4323-8, 3083-10 ####[facility] HOSPITALWinston [id number] [place] [address] [place] Bilirubin [Mass/Vol] mg/dL Low 0.2-1.3 [facility] Comment on above: Order Comment: Speci men Type: BLOOD SPECIMENOrdering Facility: [facility] Address: [address] [place] [address] Performed By: #### 2 4323-8, 3083-10 ####[facility] HOSPITALRYAN [id number] [place] [address] [place] Calcium [Mass/Vol] 9.5 mg/dL Normal 8.5-10.2 [facility] Comment on above: Order Comment: Speci men Type: BLOOD SPECIMENOrdering Facility: [facility] Address: [address] [place] [address] Performed By: #### 2 4323-8, 3083-10 ####[facility] HOSPITALNCLIA [id number] [place] [address] [place] Chloride [Moles/Vol] 102 mmol/L Normal 98-107 [facility] Comment on above: Order Comment: Speci men Type: BLOOD SPECIMENOrdering Facility: [facility] Address: [address] [place] [address] Performed By: #### 2 4323-8, 3083-10 ####[facility] DAYNEVIVIANA [id number] [place] [address] [place] CO2 [Moles/Vol] 21 mmol/L Low 22-30 [facility] Comment on above: Order Comment: Speci men Type: BLOOD SPECIMENOrdering Facility: [facility] Address: [address] [place] [address] Performed By: #### 2 4323-8, 3083-10 ####[facility] HOSPITALNCLIA [id number] [place] [address] [place] Creatinine [Mass/Vol] 0.49 mg/dL Low 0.58-0.96 [facility] Comment on above: Order Comment: Speci men Type: BLOOD SPECIMENOrdering Facility: [facility] Address: [address] [place] [address] Performed By: #### 2 4323-8, 3083-10 ####[facility] HOSPITALLIA [id number] [address] [facility] Creatinine and Glomerular filtration rate.predicted panel (S/P/Bld) 131 mL/min/1.73m??? Normal >=60 [facility] Comment on above: Order Comment: Speci men Type: BLOOD SPECIMENOrdering Facility: [facility] Address: [address] [place] [address] Result Comment: Fabby mated Glomerular Filtration Rate [...] GFR. Performed By: #### 2 4323-8, 3083-10 ####[facility] MOIWNCLIA [id number] [place] [address] [place] Glucose [Mass/Vol] 195 mg/dL High 74-99 [facility] Comment on above: Order Comment: Speci men Type: BLOOD SPECIMENOrdering Facility: [facility] Address: [address] [place] [address] Result Comment: The [place] Diabetes Association (ADA) provides guidance for cutoff [...] Standards of Medical Care in Diabetes 2016, [place] Diabetes Association. Diabetes Care. 2016.39(Suppl 1). Performed By: #### 2 4323-8, 3083- ####[facility] HOSPITALMOMO [id number] [place] [address] [place] Potassium [Moles/Vol] 3.2 mmol/L Low 3.7-5.1 [facility] Comment on above: Order Comment: Speci men Type: BLOOD SPECIMENOrdering Facility: [facility] Address: [address] [place] [address] Performed By: #### 2 4323-8, 3083-10 ####[facility] HOSPITALLIA [id number] [place] [address] [place] Protein [Mass/Vol] 6.7 g/dL Normal 6.3-8.0 [facility] Comment on above: Order Comment: Speci men Type: BLOOD SPECIMENOrdering Facility: [facility] Address: [address] [place] [address] Performed By: #### 2 4323-8, 3083- ####[facility] HOSPITALNCLIA [id number] [place] [address] [place] Sodium [Moles/Vol] 134 mmol/L Low 136-144 [facility] Comment on above: Order Comment: Speci men Type: BLOOD SPECIMENOrdering Facility: [facility] Address: [address] [place] [address] Performed By: #### 2 4323-8, 3083- ####[facility] [id number] [place] [address] [place] Urea nitrogen [Mass/Vol] 5 mg/dL Low 7-21 [facility] Comment on above: Order Comment: Speci men Type: BLOOD SPECIMENOrdering Facility: [facility] Address: [address] [place] [address] Performed By: #### 2 4323-8, 3083-10 ####[facility] HOSPITALLIA [id number] [place] [address] [place] GESTATIONAL GLUCOSE SCREEN, 1-HOUR, 50 GRAM, NON-FASTINGon 03-25-2025 Glucose [Mass/Vol] 193 mg/dL High 74-134 [facility] Comment on above: Order Comment: Speci men Type: BLOOD SPECIMEN Ordering Facility: [facility] Address: [address] [place] [address] Result Comment: [facility] Congress of Obstetricians and Gynecologists (Zackery/Ellen) guidelines state a gestational diabetes mellitus positive screen is made, in women not previously diagnosed with overt diabetes, when the 1 hr plasma glucose level is equal to or above 140 mg/dL. The [facility] [employer] Manager and [facility] [place] recommends a 135 mg/dL cutoff. Performed By: #### 1 6128-1 #### [facility] CLIA [id number] [address] [place], [place] [address] [address] [place] Prot/Creat Uron 03-25-2025 Protein/Creatinine (U) [Mass ratio] mg/g High <0.15 [facility] Comment on above: Order Comment: Speci men Type: URINE SPECIMENOrdering Facility: [facility] Address: [address] [place] [address] Result Comment: Adul t Proteinuria Categories: <0.15 mg/mg is considered normal to mildly increased 0.15 - 0.50 mg/mg is considered moderately increased >0.50 mg/mg is considered severely increased KDIGO. (2013). KDIGO 2012 Clinical Practice Guideline for the Evaluation and Management of Chronic Kidney Disease. Official Journal of the International Society of Nephrology, 3(1), 1-150. Performed By: #### 2 890-2 ####[facility] [id number] [place] [address] [place] Protein/Creatinine (U) [Mass ratio]on 03-25-2025 Creatinine (U) [Mass/Vol] 6.8 mg/dL Low 20.0-300.0 [facility] Comment on above: Order Comment: Speci men Type: URINE SPECIMENOrdering Facility: [facility] Address: [address] [place] [address] Performed By: #### 2 890-2 ####[facility] [id number] [place] [address] [place] Protein (U) [Mass/Vol] mg/dL Normal 0-20 [facility] Comment on above: Order Comment: Speci men Type: URINE SPECIMENOrdering Facility: [facility] Address: [address] [place] [address] Performed By: #### 2 890-2 ####[facility] [id number] [place] [address] [place] Reagin and Treponema pallidu m IgG and IgM [Interp]on 03-25-2025 T. pallidum IgG+IgM IA Ql (S) Non-Reactive Normal Nonreactive [facility] Comment on above: Order Comment: Speci men Type: BLOOD SPECIMENOrdering Facility: [facility] Address: [address] [place] [address] Performed By: #### 7 3752-8 ####[facility] LABCLIA [id number] [place] [address] [place] Reagin+T pallidum IgG+IgM Se rPl-Impon 03-25-2025 Reagin and Treponema pallidum IgG and IgM [Interp] Cannot exclude recent Treponemal infection if specimen collected within 7-10 days after appearance of suspect lesions or 2-3 weeks after an exposure. Clinical correlation is required. Normal [facility] Comment on above: Order Comment: Speci men Type: BLOOD SPECIMENOrdering Facility: [facility] Address: [address] [place] [address] Performed By: #### 7 3752-8 ####[facility] LABCLIA [id number] [place] [address] [place] Urate SerPl-ncon Urate [Mass/Vol] 3.5 mg/dL Normal 2.5-6.6 [facility] Comment on above: Order Comment: Speci men Type: BLOOD SPECIMENOrdering Facility: [facility] Address: [address] [place] [address] Performed By: #### 2 4323-8, 3084-1 ####[facility] [id number] [place] [address] [place] CNPNon 03-18-2025 CNPN Telephone (OBGYWM) MILLIE WATKINS ([id number]) 1995 F Date Time Provider Department 03/18/25 IRENE MC During your visit today, we recorded the following information about you: Lali Aguiar RN 03/18/2025 12:26 PM Signed 27w3d Patient previously sent [employer] message on 03/16 regarding dizzy episode she [...] fit her in. Thank you, Irene Mc APRN.[facility] Lali Aguair RN 03/18/2025 2:06 PM Signed Patient notified and scheduled for today. Lali Aguiar RN Allergies As of Date: 03/18/2025 Noted Allergy Reaction AMOXICILLIN 01/09/2017 2 - Rash ZYTHROMAX (AZITHROMYCIN) 01/09/2017 2 - Rash Date Reviewed: 02/25/2025 Reviewed by: Marlene Jimenez APRN.[employer] - Fully Assessed Reason for Visit: Question (OB Question) [2082] Prescriptions as of 03/18/2025 - famotidine (PEPCID) [...] LALI AGUIAR on 03/18/25 Normal [facility] Examination level ultrasound on 01-28-2025 Indication Detailed [...] 15 oz EFW by: Hadlock (HC-AC-FL) Extended Electric Plater 5.5 mm CM 6.0 mm 77% Nicolaides [...] normal LVOT view: normal 3-vessel view: normal 8-xsfqtc-kojyvxh view: normal Heart / Thorax Situs: situs [...] Read By: Kendra Bryant M.D. MATERNAL MEDICINE [facility] Radiology Study observation (narrative) [facility] CNCOon 01-21-2025 CNCO Letter Text Normal [facility] Examination level ultrasound on 12-03-2024 Indication First trimester anatomic survey Maternal obesity, BMI >30 Impression REMOTE READ The patient is referred for a first trimester anatomy scan including nuchal translucency measurement as clinically indicated. - Single, live, intrauterine . - Herricks rump length measurement is consistent with the [...] view: suboptimal 4-chamber view with color: suboptimal 7-miusii-jbjpkkm view: suboptimal Abdominal cord insertion: normal Stomach: [...] Read By: Kendra Bryant M.D. MATERNAL MEDICINE [facility] Radiology Study observation (narrative) [facility] Telephone ([employer]) MILLIE DELA CRUZ ([id number]) 1995 F Date Time Provider Department 11/24/24 [...] this to Laquita and reach out via [facility] if there are any. PT appreciated the assistance and had no further questions. Rickey Aguilar Genetic Counseling Medical Appointment Clerk Allergies As of Date: 11/24/2024 Noted Allergy Reaction AMOXICILLIN 01/09/2017 2 - Rash ZYTHROMAX (AZITHROMYCIN) 01/09/2017 2 - Rash Date Reviewed: 10/31/2024 Reviewed by: Marlene Jimenez APRN.[employer] - Fully Assessed Reason for Visit: Appointment [...] RICKEY COLLINS on 11/24/24 Normal [facility] B-HCG SerPl-[place]Cn[place] 5 [place] [address].0 m[IU]/mL High <5.0 [facility] Comment on above: Order Comment: Speci men Type: BLOOD SPECIMENOrdering Facility: [facility] Address: [address] [place] [address] Result Comment: BROCK TITATIVE HCG NORMAL RANGES Weeks of Gestation (Weeks Since LMP) 3 Weeks (5.8-71.2 mIU/mL) 4 Weeks (9.5-750 mIU/mL) 5 Weeks (217-7138 mIU/mL) 6 Weeks (158-09485 mIU/mL) 7 Weeks (3697-273588 mIU/mL) 8 Weeks (40046-483067 mIU/mL) 9 Weeks (29670-986083 mIU/mL) 10 Weeks (96644-360036 mIU/mL) 12 Weeks (04215-536109 mIU/mL) Referenced to 4th IS of [facility] Performed By: #### 2 1198-7 ####[facility] LABCLIA [id number] [place] [address] [place] CARRIER SCREEN, STANDARDon 0 11-17-2024 CARRIER SCREEN RESULTS View results in Scanned Documents link when available. Normal [facility] Comment on above: Order Comment: Speci men Type: BLOOD SPECIMENOrdering Facility: [facility] Address: [address] [place] [address] Performed By: #### C RRS ####MYRIADCLIA [id number] [place] [address] CBC W Auto Differential pane l (Bld)on 11-17-2024 Basophils (Bld) [#/Vol] 0.03 10*3/uL Normal <0.11 [facility] Comment on above: Order Comment: Speci men Type: BLOOD SPECIMENOrdering Facility: [facility] Address: [address] [place] [address] Performed By: #### 5 7021-8 ####[facility] LABCLIA [id number] [place] [id number] [place] Basophils/100 WBC (Bld) 0.3 % Normal [facility] Comment on above: Order Comment: Speci men Type: BLOOD SPECIMENOrdering Facility: [facility] Address: [address] [place] [address] Performed By: #### 5 7021-8 ####[facility] LABCLIA [id number] [address] [place] [facility] Differential cell count method Nom (Bld) Auto Normal [facility] Comment on above: Order Comment: Speci men Type: BLOOD SPECIMENOrdering Facility: [facility] Address: [address] [place] [address] Performed By: #### 5 7021-8 ####[facility] LABIA [id number] [place] [address] [place] Eosinophils (Bld) [#/Vol] 0.11 10*3/uL Normal <0.46 [facility] Comment on above: Order Comment: Speci men Type: BLOOD SPECIMENOrdering Facility: [facility] Address: [address] [place] [address] Performed By: #### 5 7021-8 ####[facility] LABIA [id number] [place] [id number] [facility] Eosinophils/100 WBC (Bld) 1.1 % Normal [facility] Comment on above: Order Comment: Speci men Type: BLOOD SPECIMENOrdering Facility: [facility] Address: [address] [place] [address] Performed By: #### 5 7021-8 ####[facility] LABIA [id number] [place] [id number] [place] [facility] Erythrocyte distribution width (RBC) [Ratio] 12.6 % Normal 11.5-15.0 [facility] Comment on above: Order Comment: Speci men Type: BLOOD SPECIMENOrdering Facility: [facility] Address: [address] [place] [address] Performed By: #### 5 7021-8 ####[facility] LABIA [id number] [place] [id number] [place] Hematocrit (Bld) [Volume fraction] 37.7 % Normal 36.0-46.0 [facility] Comment on above: Order Comment: Speci men Type: BLOOD SPECIMENOrdering Facility: [facility] Address: [address] [place] [address] Performed By: #### 5 7021-8 ####[facility] [id number] [place] [id number] [place] Hemoglobin (Bld) [Mass/Vol] 13.0 g/dL Normal 11.5-15.5 [facility] Comment on above: Order Comment: Speci men Type: BLOOD SPECIMENOrdering Facility: [facility] Address: [address] [place] [address] Performed By: #### 5 7021-8 ####[facility] [id number] [place] [id number] [place] Immature granulocytes (Bld) [#/Vol] 0.03 10*3/uL Normal <0.10 [facility] Comment on above: Order Comment: Speci men Type: BLOOD SPECIMENOrdering Facility: [facility] Address: [address] [place] [address] Performed By: #### 5 7021-8 ####[facility] LABIA [id number] [place] [id number] [place] Immature granulocytes/100 WBC (Bld) 0.3 % Normal [facility] Comment on above: Order Comment: Speci men Type: BLOOD SPECIMENOrdering Facility: [facility] Address: [address] [place] [address] Performed By: #### 5 7021-8 ####[facility] [id number] [place] [id number] [place] Lymphocytes (Bld) [#/Vol] 2.27 10*3/uL Normal 1.00-4.00 [facility] Comment on above: Order Comment: Speci men Type: BLOOD SPECIMENOrdering Facility: [facility] Address: [address] [place] [address] Performed By: #### 5 7021-8 ####[facility]IA [id number] [place] [id number] [place] [facility] Lymphocytes/100 WBC (Bld) 22.6 % Normal [facility] Comment on above: Order Comment: Speci men Type: BLOOD SPECIMENOrdering Facility: [facility] Address: [address] [place] [address] Performed By: #### 5 7021-8 ####[facility]IA [id number] [place] [id number] [place] MCH (RBC) [Entitic mass] 31.5 pg Normal 26.0-34.0 [facility] Comment on above: Order Comment: Speci men Type: BLOOD SPECIMENOrdering Facility: [facility] Address: [address] [place] [address] Performed By: #### 5 7021-8 ####[facility] [id number] [place] [id number] [place] MCHC (RBC) [Mass/Vol] 34.5 g/dL Normal 30.5-36.0 [facility] Comment on above: Order Comment: Speci men Type: BLOOD SPECIMENOrdering Facility: [facility] Address: [address] [place] [address] Performed By: #### 5 7021-8 ####[facility] LABIA [id number] [place] [id number] [place] MCV (RBC) [Entitic vol] 91.3 fL Normal 80.0-100.0 [facility] Comment on above: Order Comment: Speci men Type: BLOOD SPECIMENOrdering Facility: [facility] Address: [address] [place] [address] Performed By: #### 5 7021-8 ####[facility] LABCLIA [id number] [place] [address] [place] Monocytes (Bld) [#/Vol] 0.51 10*3/uL Normal <0.87 [facility] Comment on above: Order Comment: Speci men Type: BLOOD SPECIMENOrdering Facility: [facility] Address: [address] [place] [address] Performed By: #### 5 7021-8 ####[facility] LABCLIA [id number] [place] [id number] [place] Monocytes/100 WBC (Bld) 5.1 % Normal [facility] Comment on above: Order Comment: Speci men Type: BLOOD SPECIMENOrdering Facility: [facility] Address: [address] [place] [address] Performed By: #### 5 7021-8 ####[facility] LABIA [id number] [place] [id number] [place] Neutrophils (Bld) [#/Vol] 7.10 10*3/uL Normal 1.45-7.50 [facility] Comment on above: Order Comment: Speci men Type: BLOOD SPECIMENOrdering Facility: [facility] Address: [address] [place] [address] Performed By: #### 5 7021-8 ####[facility] LABIA [id number] [place] [id number] [place] Neutrophils/100 WBC (Bld) 70.6 % Normal [facility] Comment on above: Order Comment: Speci men Type: BLOOD SPECIMENOrdering Facility: [facility] Address: [address] [place] [address] Performed By: #### 5 7021-8 ####[facility] LABIA [id number] [place] [address] [place] Nucleated RBC (Bld) [#/Vol] 10*3/uL Normal <0.01 [facility] Comment on above: Order Comment: Speci men Type: BLOOD SPECIMENOrdering Facility: [facility] Address: [address] [place] [address] Performed By: #### 5 7021-8 ####[facility] LABIA [id number] [place] [id number] [place] Nucleated RBC/100 WBC (Bld) [Ratio] 0.0 /100 WBC Normal [facility] Comment on above: Order Comment: Speci men Type: BLOOD SPECIMENOrdering Facility: [facility] Address: [address] [place] [address] Performed By: #### 5 7021-8 ####[facility] [id number] [place] [id number] [place] Platelet mean volume (Bld) [Entitic vol] 9.5 fL Normal 9.0-12.7 [facility] Comment on above: Order Comment: Speci men Type: BLOOD SPECIMENOrdering Facility: [facility] Address: [address] [place] [address] Performed By: #### 5 7021-8 ####[facility] [id number] [place] [id number] [place] Platelets (Bld) [#/Vol] 288 10*3/uL Normal 150-400 [facility] Comment on above: Order Comment: Speci men Type: BLOOD SPECIMENOrdering Facility: [facility] Address: [address] [place] [address] Performed By: #### 5 7021-8 ####[facility] LABIA [id number] [place] [address] [place] RBC (Bld) [#/Vol] 4.13 10*6/uL Normal 3.90-5.20 [facility] Comment on above: Order Comment: Speci men Type: BLOOD SPECIMENOrdering Facility: [facility] Address: [address] [place] [address] Performed By: #### 5 7021-8 ####[facility] LABIA [id number] [place] [address] [place] WBC (Bld) [#/Vol] 10.05 10*3/uL Normal 3.70-11.00 [facility] Comment on above: Order Comment: Speci men Type: BLOOD SPECIMENOrdering Facility: [facility] Address: [address] [place] [address] Performed By: #### 5 7021-8 ####[facility] LABCLIA [id number] [place] [id number] [place] HBV surface Ag Ser Qlon 11-01 HBV surface Ag Ql (S) Negative Normal Negative [facility] Comment on above: Order Comment: Speci men Type: BLOOD SPECIMENOrdering Facility: [facility] Address: [address] [place] [address] Performed By: #### 3 1201-7, 5195-3, 73175-4 ####[facility] LABCLIA [id number] [place] [address] [place] HCV Ab Ser Qlon 11-17-2024 HCV Ab Ql (S) Negative Normal Negative [facility] Comment on above: Order Comment: Speci men Type: BLOOD SPECIMEN Ordering Facility: [facility] Address: [address] [place] [address] Result Comment: The result suggests no evidence of active infection with Hepatitis C virus. Should recent infection be suspected, repeat testing may be considered 4-6 weeks after this draw. Performed By: #### 1 6128-1 #### [facility] CLIA [id number] [address] [place] [address] [place] HIV 1+2 Ab IA Qlon HIV 1 and 2 Ab IA.rapid Nom (S/P/Bld) Normal [facility] Comment on above: Order Comment: Speci men Type: BLOOD SPECIMENOrdering Facility: [facility] Address: [address] [place] [address] Result Comment: Test not indicated. Performed By: #### 3 1201-7, 5195-3, 27238-1 ####[facility] LABIA [id number] [place] [address] [place] HIV 1+2 Ab+HIV1 p24 Ag IA Ql Non-Reactive Normal Nonreactive [facility] Comment on above: Order Comment: Speci men Type: BLOOD SPECIMENOrdering Facility: [facility] Address: [address] [place] [address] Performed By: #### 3 1201-7, 5195-3, 05515-0 ####[facility] LABIA [id number] [place] [address] [place] HIV immunoassay testing algorithm interpretation (S/P/Bld) [Interp] Normal [facility] Comment on above: Order Comment: Speci men Type: BLOOD SPECIMENOrdering Facility: [facility] Address: [address] [place] [address] Result Comment: No e vidence of HIV-1 or HIV-2 infection. Should recent infection be suspected, repeat testing may be considered 2-3 weeks after this draw. [place] Rev. Code 3701.243(E): This information has been [...] diagnoses. Performed By: #### 3 1201-7, 5195-3, 16930-6 ####[facility] LABIA [id number] [place] [address] [place] HbA1c (Bld)on 11-17-2024 Average glucose Estimated from glycated hemoglobin (Bld) [Mass/Vol] 103 mg/dL Normal [facility] Comment on above: Order Comment: Speci men Type: BLOOD SPECIMENOrdering Facility: [facility] Address: [address] [place] [address] Result Comment: eAG: (Estimated average glucose) is a calculated value from HgbA1c and is special service representative of the average blood glucose level in the last 2-3 month period. Performed By: #### 5 5454-3 ####[facility] LABCLIA [id number] [place] [address] [place] HbA1c (Bld) [Mass fraction] 5.2 % Normal 4.3-5.6 [facility] Comment on above: Order Comment: Quita valentin Type: BLOOD SPECIMENOrdering Facility: [facility] Address: [address] [place] [address] Result Comment: Amer ican Diabetes Association guidelines indicate that patients with HgbA1c in the range 5.7-6.4% are at increased risk for development of diabetes, and intervention by lifestyle modification may be beneficial. HgbA1c greater or equal to 6.5% is considered diagnostic of diabetes. Performed By: #### 5 5454-3 ####[facility] LABCLIA [id number] [place] [address] [place] [id number] PLUSon 11-17-2024 Cell-free DNA./Cell-free DNA.total Dosage of chromosome-specific cfDNA (cfDNA) [Molar fraction] 8% Normal [facility] Comment on above: Order Comment: Quita valentin Type: BLOOD SPECIMEN Ordering Facility: [facility] Address: [address] [place] [address] Performed By: #### M AT21 #### [facility] CLIA [id number] [address] [place] [address] Chr 13+18+21+X+Y aneuploidy Dosage of chromosome-specific cfDNA Ql (cfDNA) Negative Normal [facility] Comment on above: Order Comment: Quita valentin Type: BLOOD SPECIMEN Ordering Facility: [facility] Address: [address] [place] [address] Performed By: #### M AT21 #### [facility] CLIA [id number] [address] [place] [address] Chr 21 trisomy Dosage of chromosome-specific cfDNA Ql (cfDNA) Negative Normal [facility] Comment on above: Order Comment: Speci men Type: BLOOD SPECIMEN Ordering Facility: [facility] Address: [address] [place] [address] Performed By: #### M AT21 #### [facility] CLIA [id number] [address] [place] [address] Chr X and Y aneuploidy risk Sequencing Ql (cfDNA) [Interp] Not detected Normal [facility] Comment on above: Order Comment: Speci men Type: BLOOD SPECIMEN Ordering Facility: [facility] Address: [address] [place] [address] Result Comment: Not Detected Not Detected Performed By: #### M AT21 #### [facility] CLIA [id number] [address] [place] [address] Citation Brian (Reference lab test) Comment Normal [facility] Comment on above: Order Comment: Speci men Type: BLOOD SPECIMEN Ordering Facility: [facility] Address: [address] [place] [address] Result Comment: 1. P jere HUNTER, et al. Lalita Med. 2012;14(3):296-305. 2. Иван ARRIAGA, et al. Prenat Diag. 2013;33(6):591-597. 3. Rei C, et al. Clin Chem. 2015 Apr;61(4):608-616. 4. Ed HUNTER, et al. Llaita Med. 2011;13(11):913-920. 5. ACOG/SMFM Practice Bulletin No. 226, Jul 2020. Performed By: #### M AT21 #### [facility] CLIA [id number] [address] [place] [address] Gestational age Estimated from conception date Alexandre Normal [facility] Comment on above: Order Comment: Speci men Type: BLOOD SPECIMEN Ordering Facility: [facility] Address: [address] [place] [address] Performed By: #### M AT21 #### [facility] CLIA [id number] [address] [place] [address] GESTATIONALAGE AGE > OR = 9W Yes Normal [facility] Comment on above: Order Comment: Quita valentin Type: BLOOD SPECIMEN Ordering Facility: [facility] Address: [address] [place] [address] Performed By: #### M AT21 #### [facility] CLIA [id number] [address] [place] [address] Laboratory comment Brian (Report) Comment Normal [facility] Comment on above: Order Comment: Quita valentin Type: BLOOD SPECIMEN Ordering Facility: [facility] Address: [address] [place] [address] Result Comment: The MaterniT(R) 21 PLUS laboratory-developed test (LDT) analyzes circulating cell-free DNA from a maternal blood sample. This test is used for screening purposes and not diagnostic. Clinical correlation is recommended. Validation data on twin pregnancies is limited and the ability of this test to detect aneuploidy in higher multiple gestations has not yet been validated. Performed By: #### M AT21 #### [facility] CLIA [id number] [address] [place] [id number] worship director name Nom (Provider) Comment Normal [facility] Comment on above: Order Comment: Quita valentin Type: BLOOD SPECIMEN Ordering Facility: [facility] Address: [address] [place] [address] Result Comment: This specimen showed an expected representation of chromosome 21, 18 and 13 material. Clinical correlation is suggested. Comment Hussein Vazquez MD, PhD, Director, [employer] Performed By: #### M AT21 #### [facility] CLIA [id number] [address] [place] [id number] LIMITATIONS OF THE TEST Comment Normal [facility] Comment on above: Order Comment: Quita valentin Type: BLOOD SPECIMEN Ordering Facility: [facility] Address: [address] [place] [address] Result Comment: Arianna kwon the results of [...] Fragmin(R)). Performed By: #### M AT21 #### [facility] CLIA [id number] [address] [place] [address] Monosomy X risk Dosage of chromosome-specific cfDNA Ql (Plasma cell-free+WBC DNA) [Interp] Not detected Normal [facility] Comment on above: Order Comment: Speci men Type: BLOOD SPECIMEN Ordering Facility: [facility] Address: [address] [place] [address] Performed By: #### M AT21 #### [facility] CLIA [id number] [address] [place] [address] NEGATIVE PREDICTIVE VALUE Note Normal [facility] Comment on above: Order Comment: Quita valentin Type: BLOOD SPECIMEN Ordering Facility: [facility] Address: [address] [place] [address] Result Comment: The Negative Predictive Value (NPV) for trisomy 21, 18, and 13 is greater than 99%. The NPV for SCA and ESS cannot be calculated as SCA and ESS are only reported when an abnormality is detected. Performed By: #### M AT21 #### [facility] CLIA [id number] [address] [place] [address] PERFORMANCE CHARACTERISTICS Note Normal [facility] Comment on above: Order Comment: Quita valentin Type: BLOOD SPECIMEN Ordering Facility: [facility] Address: [address] [place] [address] Result Comment: ! Sex ! Accuracy: 99.4% [...] ! ! ! * As reported in [facility] database nstd37 [https://www.ncbi.nlm.nih.gov/dbvar/studies/nstd37/ ] # Estimated Sensitivity. Sensitivity estimated across the observed size distribution of each syndrome [per [facility] database nstd37] and across the range of fractions observed in routine clinical NIPT. Actual sensitivity can also be influenced by other factors such as the size of the event, total sequence counts, amplification bias, or sequence bias. ## Alexandre gestation only. Performed By: #### M AT21 #### [facility] CLIA [id number] [address] [place] [address] POSITIVE PREDICTIVE VALUE N/A Normal [facility] Comment on above: Order Comment: Speci men Type: BLOOD SPECIMEN Ordering Facility: [facility] Address: [address] [place] [address] Performed By: #### M AT21 #### [facility] CLIA [id number] [address] [place] [address] Reference Lab Test Method Comment Normal [facility] Comment on above: Order Comment: Speci men Type: BLOOD SPECIMEN Ordering Facility: [facility] Address: [address] [place] [address] Result Comment: See Notes Circulating cell-free DNA [...] 22. Performed By: #### M AT21 #### [facility] CLIA [id number] [address] [place] [address] Service comment (Unsp spec) [Interp] Comment Normal [facility] Comment on above: Order Comment: Speci men Type: BLOOD SPECIMEN Ordering Facility: [facility] Address: [address] [place] [address] Result Comment: See Notes [employer]. is a subsidiary of [employer], using the brand [employer]. This test was developed and its performance characteristics determined by [employer]. It has not been cleared or approved by the Food and Drug Administration. This laboratory is certified under the Clinical Laboratory Improvement Amendments (CLIA) as qualified to perform high complexity clinical laboratory testing and accredited by the [employer] (CAP). If there is future clinical need for adding MaterniT GENOME testing, this specimen will be available until term. [facility] samples will not be retained beyond 60 days. [facility] patients will have to send a new sample for re-sequencing ([facility] Test Code: [id number]). Performed By: #### M AT21 #### [email or web address] CLIA [id number] [address] [place] [address] Sex Dosage of chromosome-specific cfDNA Nom (cfDNA) Comment Normal [facility] Comment on above: Order Comment: Speci men Type: BLOOD SPECIMEN Ordering Facility: [facility] Address: [address] [place] [address] Result Comment: Cons istent with Male Performed By: #### M AT21 #### [facility] CLIA [id number] [address] [place] [address] Test performance information Brian (Unsp spec) Comment Normal [facility] Comment on above: Order Comment: Speci barbie Type: BLOOD SPECIMEN Ordering Facility: [facility] Address: [address] [place] [address] Result Comment: The performance characteristics of the MaterniT(R) 21 PLUS laboratory-developed test (LDT) have been determined in a clinical validation study with women at increased risk for chromosomal aneuploidy.[1-4] Performed By: #### M AT21 #### [facility] CLIA [id number] [address] [place] [address] Trisomy 13 risk Dosage of chromosome-specific cfDNA Ql (cfDNA) [Interp] Negative Normal [facility] Comment on above: Order Comment: Reyesi barbie Type: BLOOD SPECIMEN Ordering Facility: [facility] Address: [address] [place] [address] Performed By: #### M AT21 #### [facility] CLIA [id number] [address] [place] [address] Trisomy 18 risk Dosage of chromosome-specific cfDNA Ql (Plasma cell-free+WBC DNA) [Interp] Negative Normal [facility] Comment on above: Order Comment: Quita valentin Type: BLOOD SPECIMEN Ordering Facility: [facility] Address: [address] [place] [address] Performed By: #### M AT21 #### [facility] CLIA [id number] [address] [place] [address] RUBELLA IGG ANTIBODYon 11-17 RUBELLA IGG AB, QUAL Negative Abnormal Positive [facility] Comment on above: Order Comment: Quita valentin Type: BLOOD SPECIMENOrdering Facility: [facility] Address: [address] [place] [address] Result Comment: The result suggests no history of Rubella vaccination or exposure to Rubella virus, however, some individuals with past history of Rubella vaccination may test negative using this test as immunity to Rubella virus wanes over time after vaccination. Please correlate with vaccination history if applicable. Performed By: #### R UBIGG ####[facility] LAB[facility]IA [id number] [place] [address] [place] Reagin and Treponema pallidu m IgG and IgM [Interp]on 11-17-2024 T. pallidum IgG+IgM IA Ql (S) Non-Reactive Normal Nonreactive [facility] Comment on above: Order Comment: Speci men Type: BLOOD SPECIMENOrdering Facility: [facility] Address: [address] [place] [address] Performed By: #### 3 1201-7, 5195-3, 96896-8 ####[facility] LABCLIA [id number] [place] [address] [place] Reagin+T pallidum IgG+IgM Se rPl-Impon 11-17-2024 Reagin and Treponema pallidum IgG and IgM [Interp] Cannot exclude recent Treponemal infection if specimen collected within 7-10 days after appearance of suspect lesions or 2-3 weeks after an exposure. Clinical correlation is required. Normal [facility] Comment on above: Order Comment: Quita valentin Type: BLOOD SPECIMENOrdering Facility: [facility] Address: [address] [place] [address] Performed By: #### 3 1201-7, 5195-3, 47390-6 ####[facility] LAB[facility]IA [id number] [place] [address] [place] TYPE + SCREEN PRENATALon ABO O Normal [facility] Comment on above: Order Comment: Reyesi barbie Type: BLOOD SPECIMEN Ordering Facility: [facility] Address: [address] [place] [address] Performed By: #### 1 6128-1 #### [facility] CLIA [id number] [address] [place] [address] [place] Rh Nom (Bld) Positive Normal [facility] Comment on above: Order Comment: Speci men Type: BLOOD SPECIMEN Ordering Facility: [facility] Address: [address] [place] [address] Performed By: #### 1 6128-1 #### [facility] CLIA [id number] [address] [place] [address] [place] TYPE AND SCREEN EXPIRATION 11/20/2024 23:59 Normal [facility] Comment on above: Order Comment: Speci men Type: BLOOD SPECIMEN Ordering Facility: [facility] Address: [address] [place] [address] Performed By: #### 1 6128-1 #### [facility] CLIA [id number] [address] [place] [address] [place] Bacteria Ur Culton Bacteria identified Cx Nom (U) CULTURE, URINE: No growth (<1,000 CFU/ml) Normal [facility] Comment on above: Performed By: #### 6 30-4 ####[facility] [id number] [place] [address] [place] C. trachomatis+N. gonorrhoea e DNA EDUARDO+probe Ql (Unsp spec)on 10-31-2024 C. trachomatis rRNA EDUARDO+probe Ql (Unsp spec) Not detected Normal Not detected [facility] Comment on above: Order Comment: Speci men Type: SWABOrdering Facility: [facility] Address: [address] [place] [address] Performed By: #### T RVAMP, 03404-8 ####[facility] [id number] [place] [address] [place] N. gonorrhoeae rRNA EDUARDO+probe Ql (Unsp spec) Not detected Normal Not detected [facility] Comment on above: Order Comment: Speci men Type: SWABOrdering Facility: [facility] Address: [address] [place] [address] Performed By: #### T RVAMP, 44886-3 ####[facility] [id number] [place] [address] [place] PAP TESTon 10-31-2024 ADEQUACY Satisfactory for interpretation. Normal [facility] Comment on above: Order Comment: Speci men Type: BLOOD SPECIMEN Ordering Facility: [facility] Address: [address] [place] [address] Performed By: #### 1 6128-1 #### [facility] CLIA [id number] [address] [place] [address] [place] CASE REPORT Normal [facility] Comment on above: Order Comment: Speci men Type: BLOOD SPECIMEN Ordering Facility: [facility] Address: [address] [place] [address] Result Comment: Gyne cologic Cytology Report Case: [id number] Authorizing Provider: Marlene Jimenez APRN.[employer] Collected: 10/31/2024 11:35 AM Ordering Location: OB/Gynecology Received: 10/31/2024 03:44 PM First Screen: Katie Calvillo, CT, ASCP Specimen: Pap Test, ThinPrep, Cervix Performed By: #### 1 6128-1 #### [facility] CLIA [id number] [address] [place] [address] [place] CLINICAL HISTORY, CYTOLOGY, NETWORK RELATIONS CONSULTANT (Indicate Weeks) Normal [facility] Comment on above: Order Comment: Speci men Type: BLOOD SPECIMEN Ordering Facility: [facility] Address: [address] [place] [address] Performed By: #### 1 6128-1 #### [facility] CLIA [id number] [address] [place] [address] [place] CYTOLOGY PAP OTHER INTERPRETATION Fungal organisms morphologically consistent with Blanca species. Normal [facility] Comment on above: Order Comment: Speci men Type: BLOOD SPECIMEN Ordering Facility: [facility] Address: [address] [place] [address] Performed By: #### 1 6128-1 #### [facility] CLIA [id number] [address] [place] [address] [place] FINAL PERFORMING LAB Normal [facility] Comment on above: Order Comment: Speci men Type: BLOOD SPECIMEN Ordering Facility: [facility] Address: [address] [place] [address] Result Comment: Tech nical component, network operations lead screening performed at [facility], [address] [place] [address] CLIA# [id number] Diagnostic interpretation performed at [facility], [address] [place], [place] [id number] CLIA# [id number] Preventive Medicine Officer: Hunter Mason M.D. Performed By: #### 1 6128-1 #### [facility] CLIA [id number] [address] [place] [address] [place] INTERPRETATION, CYTOLOGY, NETWORK RELATIONS CONSULTANT Normal [facility] Comment on above: Order Comment: Speci men Type: BLOOD SPECIMEN Ordering Facility: [facility] Address: [address] [place] [address] Result Comment: Nega tive for intraepithelial lesion or malignancy. Performed By: #### 1 6128-1 #### [facility] CLIA [id number] [address] [place] [address] [place] LMP 09/07/2024 Normal [facility] Comment on above: Order Comment: Speci men Type: BLOOD SPECIMEN Ordering Facility: [facility] Address: [address] [place] [address] Performed By: #### 1 6128-1 #### [facility] CLIA [id number] [address] [place], [place] [address] [place] PAP DISCLAIMER COMMENT The Pap Smear is a screening test for cervical cancer. False negative results occur with all screening tests, emphasizing the need for rescreening at recommended intervals, and clinical correlation. Normal [facility] Comment on above: Order Comment: Speci men Type: BLOOD SPECIMEN Ordering Facility: [facility] Address: [address] [place] [address] Performed By: #### 1 6128-1 #### [facility] CLIA [id number] [address] [place] [address] [place] PAP DISPATCH SUPERVISOR COMMENT This specimen has been analyzed by the ThinPrep Imaging System, an automated imaging and review system, which assists the laboratory in evaluating cells on ThinPrep Pap tests. Following automated imaging, selected rodriguez from every slide are reviewed by a network operations lead. Normal [facility] Comment on above: Order Comment: Speci men Type: BLOOD SPECIMEN Ordering Facility: [facility] Address: [address] [place] [address] Performed By: #### 1 6128-1 #### [facility] CLIA [id number] [address] [place] [address] [place] TRICHOMONAS VAGINALIS NAATon 10-31-2024 T. vaginalis DNA EDUARDO+probe Ql (Unsp spec) Not detected Normal Not detected [facility] Comment on above: Order Comment: Speci men Type: SWABOrdering Facility: [facility] Address: [address] [place] [address] Performed By: #### T RVAMP, 09405-7 ####[facility] [id number] [place] [address] [place] Examination level ultrasound [...] Read By: Carrol Gonzalez M.D. 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 Encounter Diagnosis ICD-10-CM 1. Hx of ectopic Z87.59 Please see report under imaging tab. Carrol Gonzalez MD October 27, 2024 8:48 AM Referring Provider: GEORGE VIEIRA [[id number]] Allergies As of Date: 10/24/2024 Noted Allergy Reaction AMOXICILLIN 01/09/2017 2 - Rash ZYTHROMAX (AZITHROMYCIN) 01/09/2017 2 - Rash Date Reviewed: 10/24/2024 Reviewed by: George Vieira MD - Fully Assessed Visit Diagnosis:Hx of ectopic [Z87.59] Order(s):OBSTETRIC ULTRASOUND I [[id number]] Order #: [id number] #:[id number] IEWPOINTQty: 1 Prescriptions as of 10/27/2024 - [...] CARROL GONZALEZ on 10/27/24 Normal [facility] Examination level ultrasound on 10-24-2024 Radiology Study observation (narrative) [facility] B-HCG [place] [address].0 m[IU]/mL High <5.0 [facility] Comment on above: Order Comment: Speci men Type: BLOOD SPECIMENOrdering Facility: [facility] Address: [address] [place] [address] Result Comment: BROCK TITATIVE HCG NORMAL RANGES Weeks of Gestation (Weeks Since LMP) 3 Weeks (5.8-71.2 mIU/mL) 4 Weeks (9.5-750 mIU/mL) 5 Weeks (217-7138 mIU/mL) 6 Weeks (158-31020 mIU/mL) 7 Weeks (3697-014633 mIU/mL) 8 Weeks (06365-210679 mIU/mL) 9 Weeks (63640-698532 mIU/mL) 10 Weeks (59841-874062 mIU/mL) 12 Weeks (99727-362044 mIU/mL) Referenced to 4th IS of [facility] Performed By: #### 2 1198-7 ####[facility] [id number] [address] [place] CNOVon 10-16-2024 CNOV Office Visit (OBGYWM ) MILLIE DELA CRUZ ([id number]) 1995 F Date Time Provider Department 10/16/24 11:45 AM MARLENE JIMENEZ During your visit today, we recorded the following information about you: Blood pressure Weight Last Period 118/70 85.3 kg 09/07/24 Marlene Jimenez, DEE DEE.[employer] FRUIT PACKER 10/16/2024 12:15 PM Addendum Grommet Worker offered: Patient declines. 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 As applicable, any other physician, advance practice provider, medical student, or other health professional student that will be observing or involved in the sensitive examination for educational or training purposes was discussed with the Patient or Authorized Technical Operations Vice President. The Patient or Authorized Technical Operations Vice President has agreed to proceed with the sensitive examination. (Sensitive examination includes inspection and/or palpation of the breasts, pelvis, prostate and anorectal regions). EXAM: BP 118/70 Wt 188 lb (85.3kg) LMP 09/07/2024 GENERAL: pleasant, female in no apparent distress HEENT: Normocephalic, atraumatic, mucus membranes moist, and no lesions CHEST: Normal inspiratory effort PELVIC: external genitalia normal, normal Bartholin's glands, urethra, [place]'s glands NEURO: alert and oriented x3,exam grossly [...] Date Reviewed: 10/16/2024 Reviewed by: Marlene Jimenez APRN.[employer]ER - Fully Assessed Reason for Visit: Problem Visitt [Other] Primary Visit Diagnosis: with uncertain dates in first trimester [Z34.91] Other Visit Diagnosis:History of ectopic [Z87.59] Order(s):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 ULTRASOUND [[id number]] Order #: [id number]. #:[id number] IEWPOINTQty: 1 Prescriptions as of 11/19/2024 - aspirin, enteric coated (ECOTRIN LOW STRENGTH) 81 mg EC tablet Take 1 tablet by mouth on (more content not included)... Normal [facility] 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 ULTRASOUNDon 10-16-19 Indication Confirmation of intrauterine Impression Single intrauterine gestational sac with yolk sac present, uncertain pole Recommendations Follow up for formal dating as scheduled Method Transvaginal ultrasound examination. View: Adequate visualization Alexandre . Number of embryos: 1 Dating LMP on: 09/07/2024 GA by LMP 5 w + 4 d VRIGIL by LMP: 06/14/2025 Ultrasound examination on: 10/16/2024 [...] Read By: Marlene Jimenez NP MATERNAL MEDICINE [facility] Radiology Study observation (narrative) [facility] HCG.beta subunit Qn 385.3 m[IU]/mL High <5.0 [facility] Comment on above: Order Comment: Speci men Type: BLOOD SPECIMENOrdering Facility: [facility] Address: [address] [place], [place] [address] Result Comment: BROCK TITATIVE HCG NORMAL RANGES Weeks of Gestation (Weeks Since LMP) 3 Weeks (5.8-71.2 mIU/mL) 4 Weeks (9.5-750 mIU/mL) 5 Weeks (217-7138 mIU/mL) 6 Weeks (158-06138 mIU/mL) 7 Weeks (3697-881781 mIU/mL) 8 Weeks (11763-991960 mIU/mL) 9 Weeks (32445-765543 mIU/mL) 10 Weeks (95891-518853 mIU/mL) 12 Weeks (30617-374085 mIU/mL) Referenced to 4th [facility] of [facility] Performed By: #### 2 1198-7 ####[facility] [id number] [facility] [id number] [address] [place] HCG QUANTITATIVEon 5 HCG.beta subunit Qn 385.3 m[IU]/mL High NINF C [facility] Comment on above: QUANTITATIVE HCG NOR MAL RANGES Weeks of Gestation (Weeks Since LMP) 3 Weeks (5.8-71.2 mIU/mL) 4 Weeks (9.5-750 mIU/mL) 5 Weeks (217-7138 mIU/mL) 6 Weeks (158-63696 mIU/mL) 7 Weeks (3697-902929 mIU/mL) 8 Weeks (00913-726650 mIU/mL) 9 Weeks (99046-396417 mIU/mL) 10 Weeks (09415-473001 mIU/mL) 12 Weeks (06415-700633 mIU/mL) Referenced to 4th IS of [facility] HCG.beta subunit Qnon 2024 Interpretation and review of laboratory results Abnormal [facility] B-HCG SerPl-aCncon 5 HCG.beta subunit Qn 118.6 m[IU]/mL High <5.0 [facility] Comment on above: Order Comment: Speci men Type: BLOOD SPECIMENOrdering Facility: [facility] Address: [address] [place] [address] Result Comment: BROCK TITATIVE HCG NORMAL RANGES Weeks of Gestation (Weeks Since LMP) 3 Weeks (5.8-71.2 mIU/mL) 4 Weeks (9.5-750 mIU/mL) 5 Weeks (217-7138 mIU/mL) 6 Weeks (158-93211 mIU/mL) 7 Weeks (3697-286591 mIU/mL) 8 Weeks (16794-287391 mIU/mL) 9 Weeks (00687-576253 mIU/mL) 10 Weeks (25175-268301 mIU/mL) 12 Weeks (91787-969354 mIU/mL) Referenced to 4th IS of [facility] Performed By: #### 2 1198-7 ####[facility] [id number] [place] [address] [place] HCG QUANTITATIVEon HCG.beta subunit Qn 118.6 m[IU]/mL [facility] Comment on above: QUANTITATIVE HCG NOR MAL RANGES Weeks of Gestation (Weeks Since LMP) 3 Weeks (5.8-71.2 mIU/mL) 4 Weeks (9.5-750 mIU/mL) 5 Weeks (217-7138 mIU/mL) 6 Weeks (158-37686 mIU/mL) 7 Weeks (3697-542062 mIU/mL) 8 Weeks (32019-282729 mIU/mL) 9 Weeks (50536-486206 mIU/mL) 10 Weeks (71947-201841 mIU/mL) 12 Weeks (33668-240374 mIU/mL) Referenced to 4th IS of [facility] HCG.beta subunit Qnon 2024 Interpretation and review of laboratory results Abnormal [facility] CNPNon 10-02-2024 CNPN Telephone (DAPHNEYWE) MILLIE DELA CRUZ ([id number]) 1995 F Date Time Provider Department 10/02/24 [...] Return call to: self Call patient at: [phone] (cell), it is OK to leave message Payor: [employer] / Plan: [employer] OAP / Product Type: [...] have it, so she can receive the patient care provider messages. Will forward this encounter to the [...] PM Signed Hcg levels ordered. Please have finance and administration manager provider review. MD Naveen Erwin Tara, RN [...] Jennifer, RN 10/07/2024 11:23 AM Signed See Indexing message sent by patient today. 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] Cmt: Initial OB RN CC pool Primary Visit Diagnosis:Hx of ectopic [Z87.59] Order(s):HCG QUANTITATIVE [SQHCGQT] Order #: [id number] STANDING OBSTETRIC ULTRASOUND I [[id number]] Order #: [id number]: 1 FUTURE Prescriptions as of 10/07/2024 - [...] Encounter Status:Closed by ZAHRA BAEZ on 10/07/24 [facility] CNNURSEon 09-18-2024 CNNURSE Nurse Visit (OBGYWM) MILLIE DELA CRUZ ([id number]) 1995 F Date Time Provider Department 09/18/24 10:00 AM NURSE COMMANDING OFFICER [facility] [facility] WSTR OBGYWM During your visit today, [...] 09/18/2024 10:12 AM >> MINDA DELA CRUZ [facility] Sep 18, 2024 10:12 AM No longer [...] Encounter Status:Closed by VICKY SHABAZZ on 09/18/24 [facility] Cj 06-19-2024 CNOV Office Visit (OBGYWM ) MILLIE DELA CRUZ ([id number]) 1995 F Date Time Provider Department 9/19/24 [...] proschutto with pistachios/cashews/al monds and Chobani SF [place] Islander yogurt or Triple Zero L - 2-3 pm breakfast sandwich or protein with sweet potato S - none D - 1845 pm meat, small portion - mashed potato/sweet potato fries airfried, occasional vegetable if eating out or Eats out - Qatari chicken enchillada, rice AND beans or thin [...] (more content not included)... Normal [facility] HCG QUANTITATIVEon HCG.beta subunit Qn 226.6 m[IU]/mL High [facility] Comment on above: QUANTITATIVE HCG NOR MAL RANGES Weeks of Gestation (Weeks Since LMP) 3 Weeks (5.8-71.2 mIU/mL) 4 Weeks (9.5-750 mIU/mL) 5 Weeks (217-7138 mIU/mL) 6 Weeks (158-12882 mIU/mL) 7 Weeks (3697-100442 mIU/mL) 8 Weeks (77451-352303 mIU/mL) 9 Weeks (88782-791760 mIU/mL) 10 Weeks (09258-944646 mIU/mL) 12 Weeks (40815-516327 mIU/mL) Referenced to 4th IS of [facility] HCG.beta subunit Qnon 2023 Interpretation and review of laboratory results Abnormal [facility] Bacteria identifiedon 2023 Bacteria identified Cx Nom (U) Test: Urine culture Specimen Source: Clean Catch/Voided Specimen Type: Urine Specimen Date: 03/28/20241954 Result Date: 03/30/2024 1109 Result Status: Final result Abnormal: No Resulting Lab: [facility] [address] [id number] CULTURE No significant growth [facility] Comment on above: Performed By: #### 6 30-4 #### ESTRELLITA Rodriguez ([id number]) [facility] ([facility]) [address] [place] [address] Blood type and Indirect anti body screen panel (Bld)on 03-28-2024 ABO group Nom (Bld) O [place] Blood group antibody screen Ql Negative [facility] D Ag Ql (Bld) Positive [facility] ABO group Nom (Bld) O Normal [facility] Comment on above: Performed By: #### 3 4532-2 #### FERNANDO GONZALEZ ([id number]) [facility] ([facility]) [address] [place] [address] Blood group antibody screen Ql Negative [facility] Comment on above: Performed By: #### 3 4532-2 #### FERNANDO GONZALEZ ([id number]) [facility] ([facility]) [address] [place] [address] D Ag Ql (Bld) Positive [facility] Comment on above: Performed By: #### 3 4532-2 #### FERNANDO GONZALEZ ([id number]) [facility] ([facility]) [address] [place] [address] CBC W Auto Differential pane l (Bld)on 03-28-2024 Basophils (Bld) [#/Vol] 0.06 10*3/uL [facility] Basophils/100 WBC (Bld) 0.6 % 0.0 - 2.0 % [facility] Eosinophils (Bld) [#/Vol] 0.04 10*3/uL [facility] Eosinophils/100 WBC (Bld) 0.4 % 0.0 - 6.0 % [facility] Erythrocyte distribution width (RBC) [Ratio] 12.2 % 11.5 - 14.5 % [facility] Hematocrit (Bld) [Volume fraction] 40.7 % 36.0 - 46.0 % [facility] Hemoglobin (Bld) [Mass/Vol] 13.5 g/dL 12.0 - 16.0 g/dL [facility] Immature granulocytes (Bld) [#/Vol] 0.03 10*3/uL [facility] Immature granulocytes/100 WBC (Bld) 0.3 % 0.0 - 0.9 % [facility] Comment on above: Immature Granulocyte Count (IG) includes promyelocytes, myelocytes and metamyelocytes but does not include bands. Percent differential counts (%) should be interpreted in the context of the absolute cell counts (cells/UL). Lymphocytes (Bld) [#/Vol] 2.82 10*3/uL [facility] Lymphocytes/100 WBC (Bld) 26.1 % 13.0 - 44.0 % [facility] MCH (RBC) [Entitic mass] 30.5 pg 26.0 - 34.0 pg [facility] MCHC (RBC) [Mass/Vol] 33.2 g/dL 32.0 - 36.0 g/dL [facility] MCV (RBC) [Entitic vol] 92 fL 80 - 100 fL [facility] Monocytes (Bld) [#/Vol] 0.82 10*3/uL [facility] Monocytes/100 WBC (Bld) 7.6 % 2.0 - 10.0 % [facility] Neutrophils (Bld) [#/Vol] 7.03 10*3/uL [facility] Comment on above: Percent differential counts (%) should be interpreted in the context of the absolute cell counts (cells/uL). Neutrophils/100 WBC (Bld) 65.0 % 40.0 - 80.0 % [facility] Nucleated RBC/100 WBC (Bld) [Ratio] 0.0 % [facility] Platelets (Bld) [#/Vol] 343 10*3/uL [facility] RBC (Bld) [#/Vol] 4.42 10*6/uL [facility] WBC (Bld) [#/Vol] 10.8 10*3/uL [facility] Basophils (Bld) [#/Vol] 0.06 x10*3/uL Normal 0.00-0.10 [facility] Comment on above: Performed By: #### 5 7021-8 #### FERNANDO GONZALEZ ([id number]) [facility] ([facility]) [address] [place] [address] 28480 Basophils/100 WBC (Bld) 0.6 % Normal 0.0-2.0 [facility] Comment on above: Performed By: #### 5 7021-8 #### FERNANDO GONZALEZ ([id number]) [facility] ([facility]) [address] [place] [address]8417 Eosinophils (Bld) [#/Vol] 0.04 x10*3/uL Normal 0.00-0.70 [facility] Comment on above: Performed By: #### 5 7021-8 #### FERNANDO GONZALEZ ([id number]) [facility] ([facility]) [address] [place] [address] 76676 Eosinophils/100 WBC (Bld) 0.4 % Normal 0.0-6.0 [facility] Comment on above: Performed By: #### 5 7021-8 #### FERNANDO GONZALEZ ([id number]) [facility] ([facility]) [address] [place] [address] 33808 Erythrocyte distribution width (RBC) [Ratio] 12.2 % Normal 11.5-14.5 [facility] Comment on above: Performed By: #### 5 7021-8 #### FERNANDO GONZALEZ ([id number]) [facility] ([facility]) [address] [place] [address] 96363 Hematocrit (Bld) [Volume fraction] 40.7 % Normal 36.0-46.0 [facility] Comment on above: Performed By: #### 5 7021-8 #### FERNANDO OGNZALEZ ([id number]) [facility] ([facility]) [address] [place] [address] 94438 Hemoglobin (Bld) [Mass/Vol] 13.5 g/dL Normal 12.0-16.0 [facility] Comment on above: Performed By: #### 5 7021-8 #### FERNANDO GONZALEZ ([id number]) [facility] ([facility]) [address] [place] [address] 08220 Immature granulocytes (Bld) [#/Vol] 0.03 x10*3/uL Normal 0.00-0.70 [facility] Comment on above: Performed By: #### 5 7021-8 #### FERNANDO GONZALEZ ([id number]) [facility] ([facility]) [address] [place] [address] 32005 Immature granulocytes/100 WBC (Bld) 0.3 % Normal 0.0-0.9 [facility] Comment on above: Result Comment: Brandy ture Granulocyte Count (IG) includes promyelocytes, myelocytes and metamyelocytes but does not include bands. Percent differential counts (%) should be interpreted in the context of the absolute cell counts (cells/UL). Performed By: #### 5 7021-8 #### FERNANDO GONZALEZ ([id number]) [facility] ([facility]) [address] [place] [address] 29454 Lymphocytes (Bld) [#/Vol] 2.82 x10*3/uL Normal 1.20-4.80 [facility] Comment on above: Performed By: #### 5 7021-8 #### FERNANDO GONZALEZ ([id number]) [facility] ([facility]) [address] [place] [address] 04698 Lymphocytes/100 WBC (Bld) 26.1 % Normal 13.0-44.0 [facility] Comment on above: Performed By: #### 5 7021-8 #### FERNANDO GONZALEZ ([id number]) [facility] ([facility]) [address] [place] [address] 60029 MCH (RBC) [Entitic mass] 30.5 pg Normal 26.0-34.0 [facility] Comment on above: Performed By: #### 5 7021-8 #### FERNANDO GONZALEZ ([id number]) [facility] ([facility]) [address] [place] [address] 56356 MCHC (RBC) [Mass/Vol] 33.2 g/dL Normal 32.0-36.0 [facility] Comment on above: Performed By: #### 5 7021-8 #### FERNANDO GONZALEZ ([id number]) [facility] ([facility]) [address] [place] [address] 16097 MCV (RBC) [Entitic vol] 92 fL Normal 80-100 [facility] Comment on above: Performed By: #### 5 7021-8 #### FERNANDO GONZALEZ ([id number]) [facility] ([facility]) [address] [place] [address] 46919 Monocytes (Bld) [#/Vol] 0.82 x10*3/uL Normal 0.10-1.00 [facility] Comment on above: Performed By: #### 5 7021-8 #### FERNANDO GONZALEZ ([id number]) [facility] ([facility]) [address] [place] [address] 38732 Monocytes/100 WBC (Bld) 7.6 % Normal 2.0-10.0 [facility] Comment on above: Performed By: #### 5 7021-8 #### FERNANDO GONZALEZ (71809) [facility] ([facility]) [address] [place] [address] 07088 Neutrophils (Bld) [#/Vol] 7.03 x10*3/uL Normal 1.20-7.70 [facility] Comment on above: Result Comment: Perc ent differential counts (%) should be interpreted in the context of the absolute cell counts (cells/uL). Performed By: #### 5 7021-8 #### FERNANDO GONZALEZ ([id number]) [facility] ([facility]) [address] [place] [address] 02271 Neutrophils/100 WBC (Bld) 65.0 % Normal 40.0-80.0 [facility] Comment on above: Performed By: #### 5 7021-8 #### FERNANDO GONZALEZ (56086) [facility] ([facility]) [address] [place] [address] Nucleated RBC/100 WBC (Bld) [Ratio] 0.0 /100 WBCs Normal 0.0-0.0 [facility] Comment on above: Performed By: #### 5 7021-8 #### FERNANDO GONZALEZ ([id number]) [facility] ([facility]) [address] [place] [address] 25745 Platelets (Bld) [#/Vol] 343 x10*3/uL Normal 150-450 [facility] Comment on above: Performed By: #### 5 7021-8 #### FERNANDO GONZALEZ ([id number]) [facility] ([facility]) [address] [place] [address] 70186 RBC (Bld) [#/Vol] 4.42 x10*6/uL Normal 4.00-5.20 [facility] Comment on above: Performed By: #### 5 7021-8 #### FERNANDO GONZALEZ ([id number]) [facility] ([facility]) [address] [place] [address] 02499 WBC (Bld) [#/Vol] 10.8 x10*3/uL Normal 4.4-11.3 [facility] Comment on above: Performed By: #### 5 7021-8 #### FERNANDO GONZALEZ ([id number]) [facility] ([facility]) [address] [place] [address]1422 Choriogonadotropin.beta subu niton 03-28-2024 HCG.beta subunit Qn 175 m[IU]/mL High <5 [facility] Comment on above: Order Comment: Total HCG measurement is performed using the Gaviota Harlan Access Immunoassay which detects intact HCG and free beta HCG subunit. This test is not indicated for use as a tumor marker. HCG testing is performed using a different test methodology at [facility] than other [facility]. Direct result comparison should only [...] By: #### 2 1198-7 #### KING LISA ([id number]) [facility] ([facility]) [address] [place] [address] Comprehensive metabolic 2000 panelon 03-28-2024 Albumin BCP dye [Mass/Vol] 4.5 g/dL 3.4 - 5.0 g/dL [facility] ALP [Catalytic activity/Vol] 58 U/L 33 - 110 U/L [facility] ALT With P-5'-P [Catalytic activity/Vol] 22 U/L 7 - 45 U/L [facility] Comment on above: Patients treated wit h Sulfasalazine may generate falsely decreased results for ALT. Anion gap [Moles/Vol] 11 mmol/L 10 - 2 0 mmol/L [facility] AST With P-5'-P [Catalytic activity/Vol] 15 U/L 9 - 39 U/L [facility] Bilirubin [Mass/Vol] 0.3 mg/dL 0.0 - 1 .2 mg/dL [facility] Calcium [Mass/Vol] 9.3 mg/dL 8.6 - 10. 3 mg/dL [facility] Chloride [Moles/Vol] 99 mmol/L 98 - 10 7 mmol/L [facility] CO2 [Moles/Vol] 28 mmol/L 21 - 32 mmol/L [facility] Creatinine [Mass/Vol] 0.70 mg/dL 0.50 - 1.05 mg/dL [facility] eGFR - PINF [facility] Comment on above: Calculations of fabby mated GFR are performed using the 2020 CKD-EPI Study Refit equation without the race variable for the IDMS-Traceable creatinine methods. https://jasn.asnjournals.org/content/early/ASN.2020 386795 Glucose [Mass/Vol] 94 mg/dL 74 - 99 mg/dL [facility] Interpretation and review of laboratory results Abnormal [facility] Potassium [Moles/Vol] 3.7 mmol/L 3.5 - 5.3 mmol/L [facility] Protein [Mass/Vol] 7.2 g/dL 6.4 - 8.2 g/dL [facility] Sodium [Moles/Vol] 134 mmol/L Low 136 - 145 mmol/L [facility] Urea nitrogen [Mass/Vol] 10 mg/dL 6 - 23 mg/dL [facility] Albumin BCP dye [Mass/Vol] 4.5 g/dL Normal 3.4-5.0 [facility] Comment on above: Performed By: #### 2 4323-8 #### FERNANDO GONZALEZ ([id number]) [facility] ([facility]) [address] [place] [address] ALP [Catalytic activity/Vol] 58 U/L Normal 33-110 [facility] Comment on above: Performed By: #### 2 4323-8 #### FERNANDO GONZALEZ ([id number]) [facility] ([facility]) [address] [place] [address] 60195 ALT With P-5'-P [Catalytic activity/Vol] 22 U/L Normal 7-45 [facility] Comment on above: Result Comment: Nelda ents treated with Sulfasalazine may generate falsely decreased results for ALT. Performed By: #### 2 4323-8 #### FERNANDO GONZALEZ ([id number]) [facility] ([facility]) [facility] [place] [address] Anion gap [Moles/Vol] 11 mmol/L Normal 10-20 [facility] Comment on above: Performed By: #### 2 4323-8 #### FERNANDO GONZALEZ ([id number]) [facility] ([facility]) [facility] [place] [address] AST With P-5'-P [Catalytic activity/Vol] 15 U/L Normal 9-39 [facility] Comment on above: Performed By: #### 2 4323-8 #### FERNANDO GONZALEZ ([id number]) [facility] ([facility]) [facility] [place] [address] Bilirubin [Mass/Vol] 0.3 mg/dL Normal 0.0-1.2 [facility] Comment on above: Performed By: #### 2 4323-8 #### FERNANDO GONZALEZ ([id number]) [facility] ([facility]) [address] [place] [address] 29235 Calcium [Mass/Vol] 9.3 mg/dL Normal 8.6-10.3 [facility] Comment on above: Performed By: #### 2 4323-8 #### FERNANDO GONZALEZ ([id number]) [facility] ([facility]) [address] [place] [address]31 Chloride [Moles/Vol] 99 mmol/L Normal 98-107 [facility] Comment on above: Performed By: #### 2 4323-8 #### FERNANDO GONZALEZ ([id number]) [facility] ([facility]) [address] [place] [address] 59661 CO2 [Moles/Vol] 28 mmol/L Normal 21-32 [facility] Comment on above: Performed By: #### 2 4323-8 #### FERNANDO GONZALEZ ([id number]) [facility] ([facility]) [address] [place] [address] 68999 Creatinine [Mass/Vol] 0.70 mg/dL Normal 0.50-1.05 [facility] Comment on above: Performed By: #### 2 4323-8 #### FERNANDO GONZALEZ ([id number]) [facility] ([facility]) [address] [place] [address] 44596 GFR/1.73 sq M.predicted MDRD (S/P/Bld) [Vol rate/Area] mL/min/{1.73_m2} Normal >60 [facility] Comment on above: Result Comment: Calc ulations of estimated GFR are performed using the 2020 CKD-EPI Study Refit equation without the race variable for the IDMS-Traceable creatinine methods. https://jasn.asnjournals.org/content/early//ASN.2020 225129 Performed By: #### 2 4323-8 #### FERNANDO GONZALEZ ([id number]) [facility] ([facility]) [address] [place] [address] Glucose [Mass/Vol] 94 mg/dL Normal 74-99 [facility] Comment on above: Performed By: #### 2 4323-8 #### FERNANDO GONZALEZ ([id number]) [facility] ([facility]) [address] [place] [address]1189 Potassium [Moles/Vol] 3.7 mmol/L Normal 3.5-5.3 [facility] Comment on above: Performed By: #### 2 4323-8 #### FERNANDO GONZALEZ ([id number]) [facility] ([facility]) [address] [place] [address] 86788 Protein [Mass/Vol] 7.2 g/dL Normal 6.4-8.2 [facility] Comment on above: Performed By: #### 2 4323-8 #### FERNANDO GONZALEZ ([id number]) [facility] ([facility]) [address] [place] [address] 38957 Sodium [Moles/Vol] 134 mmol/L Low 136-145 [facility] Comment on above: Performed By: #### 2 4323-8 #### FERNANDO GONZALEZ ([id number]) [facility] ([facility]) [address] [place] [address] 51970 Urea nitrogen [Mass/Vol] 10 mg/dL Normal 6-23 [facility] Comment on above: Performed By: #### 2 4323-8 #### FERNANDO GONZALEZ ([id number]) [facility] ([facility]) [address] [place] [address] 46658 ECG 12-LEADon 03-28-2024 ECG 12-LEAD Ventricular Rate 126 Atrial Rate 126 P-R Interval 150 QRS Duration 82 Q-T Interval 296 QTC Calculation(Bazett) 428 P Bedford 60 R Bedford 78 T Bedford -2 QRS Count 21 Q Onset 220 P Onset 145 P Offset 192 T Offset 368 QTC Fredericia 379 Diagnosis Sinus tachycardia Possible Left atrial enlargement Nonspecific T wave abnormality Abnormal ECG No previous ECGs available See ED provider note for full interpretation and clinical correlation Confirmed by Jenny Elizabeth ([id number]) on 04/04/2024 5:48:06 PM Normal [facility] HCG.beta subunit Qnon 2023 Interpretation and review of laboratory results Abnormal [facility] Total HCG measuremen t is performed using the Gaviota Harlan Access Immunoassay which detects intact HCG and free beta HCG subunit. This test is not indicated for use as a tumor marker. HCG testing is performed using a different test methodology at [facility] than other [facility]. Direct result comparison should only be made within the same method. [facility] US OB LESS THAN 14 WEEKS EAR [place] 03-28-2024 US OB LESS THAN 14 WEEKS EARLY Interpreted By: Lacey Farias, STUDY: US OB LESS THAN 14 WEEKS EARLY; 03/28/2024 8:59 pm INDICATION: Signs/Symptoms:RLQ pain, + preg at home. COMPARISON: None. ACCESSION NUMBER(S): [id number] ORDERING CLINICIAN: ALEXA DUVALL TECHNIQUE: Multiple ultrasonographic [...] Lacey Farias 03/28/2024 9:55 PM Dictation workstation: [id number] [facility] US for in first tr imesteron 03-28-2024 1. Normal ultrasound of the uterus and ovaries. There is no sign of an intrauterine gestation at this time. These findings are consistent with ectopic , spontaneous or very early intrauterine . Clinical correlation and follow-up are necessary MACRO: None Signed by: Lacey Farias 03/28/2024 9:55 PM Dictation workstation: [id number] [facility] Interpreted By: Lacey Farias, STUDY: US OB LESS THAN 14 WEEKS EARLY; 03/28/2024 8:59 pm INDICATION: Signs/Symptoms:RLQ pain, + preg at home. COMPARISON: None. ACCESSION NUMBER(S): [id number] ORDERING CLINICIAN: ALEXA DUVALL TECHNIQUE: Multiple ultrasonographic [...] preg at home. COMPARISON: None. ACCESSION NUMBER(S): [id number] ORDERING CLINICIAN: ALEXA DUVALL TECHNIQUE: Multiple ultrasonographic [...] Lacey Farias 03/28/2024 9:55 PM Dictation workstation: [id number] [facility] Work Phone: Radiology Study observation (narrative) [facility] Work Phone: US for in first tr imesterOrdered By: Lacey Farias on 03-28-2024 [facility] Work Phone: Urinalysis complete W Reflex Culture panel (U)on 03-28-2024 Appearance (U) Turbid Abnormal Clear [facility] Bacteria Auto (Urine sed) [#/Area] 2+ Abnormal NONE SEEN /HPF [facility] Bilirubin (U) [Mass/Vol] Negative NEGATIVE [facility] Color (U) Light-Yellow Light-Yellow, Yellow, Dark-Yellow [facility] Epithelial cells.squamous Auto (Urine sed) [#/Area] 1-9 (SPARSE) Reference range not established. /HPF [facility] Glucose Auto test strip (U) [Mass/Vol] Normal Normal mg/dL [facility] Interpretation and review of laboratory results Abnormal [facility] Ketones (U) [Mass/Vol] Negative NEGAT UYEN mg/dL [facility] Leukocyte esterase Auto test strip Ql (U) Negative NEGATIVE [facility] Nitrite Auto test strip Ql (U) Negative NEGATIVE [facility] pH (U) 6.5 [pH] 5.0, 5.5, 6.0, 6.5, 7.0, 7.5, 8.0 [facility] Protein (U) [Mass/Vol] 10 (TRACE) NEGAT UYEN, 10 (TRACE), 20 (TRACE) mg/dL [facility] RBC (U) [#/Vol] OVER (3+) Abnormal NEGATIVE [facility] RBC Auto (Urine sed) [#/Area] 3-5 NONE, 1-2, 3-5 /HPF [facility] Specific gravity (U) [Rel density] 1.010 1.005 - 1.035 [facility] Urobilinogen (U) [Mass/Vol] Normal Normal mg/dL [facility] WBC Auto (Urine sed) [#/Area] 1-5 1-5, NONE /HPF [facility] Appearance (U) Turbid Normal Clear [facility] Comment on above: Performed By: #### 5 8077-9 #### FERNANDO GONZALEZ ([id number]) [facility] ([facility]) [address] [place] [address] Bacteria Auto (Urine sed) [#/Area] 2+ /HPF Abnormal NONE SEEN [facility] Comment on above: Performed By: #### 5 8077-9 #### FERNANDO GONZALEZ ([id number]) [facility] ([facility]) [address] [place] [address] Bilirubin (U) [Mass/Vol] Negative Normal NEGATIVE [facility] Comment on above: Performed By: #### 5 8077-9 #### FERNANDO GONZALEZ ([id number]) [facility] ([facility]) [address] [place] [address] Color (U) Light-Yellow Normal Light-Yellow, Yellow, Dark-Yellow [facility] Comment on above: Performed By: #### 5 8077-9 #### FERNANDO GONZALEZ ([id number]) [facility] ([facility]) [address] [place] [address] Epithelial cells.squamous Auto (Urine sed) [#/Area] 1-9 (SPARSE) Normal Reference range not established. [facility] Comment on above: Performed By: #### 5 8077-9 #### FERNANDO GONZALEZ ([id number]) [facility] ([facility]) [address] [place] [address] Glucose Auto test strip (U) [Mass/Vol] Normal Normal Normal [facility] Comment on above: Performed By: #### 5 8077-9 #### FERNANDO GONZALEZ ([id number]) [facility] ([facility]) [address] [place] [address] 22691 Ketones (U) [Mass/Vol] Negative Normal NEGATIVE [facility] Comment on above: Performed By: #### 5 8077-9 #### FERNANDO GONZALEZ ([id number]) [facility] ([facility]) [address] [place] [address] 44552 Leukocyte esterase Auto test strip Ql (U) Negative Normal NEGATIVE [facility] Comment on above: Performed By: #### 5 8077-9 #### FERNANDO GONZALEZ ([id number]) [facility] ([facility]) [address] [place] [address] 21226 Nitrite Auto test strip Ql (U) Negative Normal NEGATIVE [facility] Comment on above: Performed By: #### 5 8077-9 #### FERNANDO GONZALEZ ([id number]) [facility] ([facility]) [address] [place] [address] 24882 pH (U) 6.5 [pH] Normal 5.0, 5.5, 6.0, 6.5, 7.0, 7.5, 8.0 [facility] Comment on above: Performed By: #### 5 8077-9 #### FERNANDO GONZALEZ ([id number]) [facility] ([facility]) [address] [place] [address] 19067 Protein (U) [Mass/Vol] 10 (TRACE) Normal NEGAT UYEN, 10 (TRACE), 20 (TRACE) [facility] Comment on above: Performed By: #### 5 8077-9 #### FERNANDO GONZALEZ ([id number]) [facility] ([facility]) [address] [place] [address] 05706 RBC (U) [#/Vol] OVER (3+) Abnormal NEGATIVE [facility] Comment on above: Performed By: #### 5 8077-9 #### FERNANDO GONZALEZ ([id number]) [facility] ([facility]) [address] [place] [address] 22948 RBC Auto (Urine sed) [#/Area] 3-5 Normal NONE, 1-2, 3-5 [facility] Comment on above: Performed By: #### 5 8077-9 #### FERNANDO GONZALEZ ([id number]) [facility] ([facility]) [address] [place] [address] 71416 Specific gravity (U) [Rel density] 1.010 Normal 1.005-1.035 [facility] Comment on above: Performed By: #### 5 8077-9 #### FERNANDO GONZALEZ ([id number]) [facility] ([facility]) [address] [place] [address] 77020 Urobilinogen (U) [Mass/Vol] Normal Normal Normal [facility] Comment on above: Performed By: #### 5 8077-9 #### FERNANDO GONZALEZ ([id number]) [facility] ([facility]) [address] [place] [address] 84903 WBC Auto (Urine sed) [#/Area] 1-5 Normal 1-5, NONE [facility] Comment on above: Performed By: #### 5 8077-9 #### FERNANDO GONZALEZ ([id number]) [facility] ([facility]) [address] [place] [address] 52370 hCG, quantitative, on 03-28-2024 HCG.beta subunit Qn 175 m[IU]/mL High [facility] Comment on above: Low-level positive H CG [...] 91 m[IU]/mL Abnormal [facility] [address] [place] Work Phone: Comment on above: Low-level positive [...] performed using a different test methodology at [facility] than other [facility]. Direct result comparison should only be made within the same method. REF VALUESNON FEMALE <5MALES <5 HCG,BETA-QUANTITATIVEon 08-01 HCG,BETA-QUANTITATIVE 91 mIU/mL Abnormal [facility] Comment on above: Result Comment: Low- level [...] HCG measurement is performed using the Gaviota Harlan Access Immunoassay which detects intact HCG and free beta HCG subunit. This test is not indicated for use as a tumor marker. HCG testing is performed using a different test methodology at [facility] than [facility]. Direct result comparison should only be made within the same method. REF VALUES NON FEMALE <5 MALES <5 Performed By: #### H CGQU #### [address] [address] ABO/RH GROUP TESTon 08-09-20 21 ABO TYPE O Normal [facility] Comment on above: Performed By: #### A LILA #### [address] [address] RH TYPE Positive Normal [facility] Comment on above: Performed By: #### A LILA #### [address] [address] BASIC METABOLIC PANELon 11-0 Anion gap [Moles/Vol] 11 mmol/L Normal - [facility] Comment on above: Performed By: #### B MP #### [address] [address] Calcium [Mass/Vol] 9.3 mg/dL Normal 8.6 - 10.3 [facility] Comment on above: Performed By: #### B MP #### [address] [address] Chloride [Moles/Vol] 103 mmol/L Normal 98 - 107 [facility] Comment on above: Performed By: #### B MP #### [address] [address] Creatinine [Mass/Vol] 0.64 mg/dL Normal 0.50 - 1.05 [facility] Comment on above: Performed By: #### B MP #### [address] [address] GFR- AM. >60 Normal >60 [facility] Comment on above: Result Comment: CALC ULATIONS OF ESTIMATED GFR ARE PERFORMED USING THE MDRD STUDY EQUATION FOR THE IDMS-TRACEABLE CREATININE METHODS. CLIN CHEM 2007;53:766-72 Performed By: #### B MP #### [address] [address] GFR-NON AM. >60 Normal >60 [facility] Comment on above: Performed By: #### B MP #### [address] [address] Glucose [Mass/Vol] 79 mg/dL Normal 74 - 99 [facility] Comment on above: Performed By: #### B MP #### [address] [address] HCO3 (Bld) [Moles/Vol] 28 mmol/L Normal 21 - 32 [facility] Comment on above: Performed By: #### B MP #### [address] [address] Potassium [Moles/Vol] 3.8 mmol/L Normal 3.5 - 5.3 [facility] Comment on above: Performed By: #### B MP #### [address] [address] Sodium [Moles/Vol] 138 mmol/L Normal 136 - 145 [facility] Comment on above: Performed By: #### B MP #### [address] [address] Urea nitrogen [Mass/Vol] 6 mg/dL Normal 6 - 23 [facility] Comment on above: Performed By: #### B MP #### [address] [address] Blood Typing (ABO + Rho D)on 08-09-2021 ABO group Nom (Bld) O [facility] [address] [place] Work Phone: [phone] Rh immune globulin screen (Bld) [Interp] Positive [facility] [address] [place] Work Phone: [phone] CBCon 08-09-2021 Erythrocyte distribution width (RBC) [Ratio] 12.1 % Normal 11.5 - 14.5 [facility] Comment on above: Performed By: #### C BC #### [address] [address] Hematocrit (Bld) [Volume fraction] 42.0 % Normal 36.0 - 46.0 [facility] Comment on above: Performed By: #### C BC #### [address] [address] Hemoglobin (Bld) [Mass/Vol] 14.2 g/dL Normal 12.0 - 16.0 [facility] Comment on above: Performed By: #### C BC #### [address] [address] MCHC (RBC) [Mass/Vol] 33.8 g/dL Normal 32.0 - 36.0 [facility] Comment on above: Performed By: #### C BC #### [address] [address] MCV (RBC) [Entitic vol] 93 fL Normal 80 - 100 [facility] Comment on above: Performed By: #### C BC #### [address] [address] NUCLEATED RBC 0.0 /100 WBC Normal 0.0 - 0.0 [facility] Comment on above: Performed By: #### C BC #### [address] [place] [address] Platelets (Bld) [#/Vol] 332 10*3/uL Normal 150 - 450 [facility] Comment on above: Performed By: #### C BC #### [facility] [address] [place] [address] RBC 4.54 x10E12/L Normal 4.00 - 5.20 [facility] Comment on above: Performed By: #### C BC #### [facility] [address] [place] [address] WBC (Bld) [#/Vol] 8.2 10*3/uL Normal 4.4 - 11.3 [facility] Comment on above: Performed By: #### C BC #### [facility] [address] [place] [address] HCG, Beta Quantitativeon HCG.beta subunit Qn 161 m[IU]/mL Abnormal [facility] [address] [place] Work Phone: Comment on above: Low-level positive [...] HCG measurement is performed using the Gav[employer] Harlan Access Immunoassay which detects intact HCG and free beta HCG subunit. This test is not indicated for use as a tumor marker. HCG testing is performed using a different test methodology at [facility] than other [facility]. Direct result comparison should only be made within the same method. REF VALUESNON FEMALE <5MALES <5 HCG,BETA-QUANTITATIVEon 11-0 HCG,BETA-QUANTITATIVE 161 mIU/mL Abnormal [facility] Comment on above: Result Comment: Low- level [...] performed using a different test methodology at [facility] than other [facility]. Direct result comparison should only be made within the same method. REF VALUES NON FEMALE <5 MALES <5 Performed By: #### H CGQU #### [facility] [address] [place] [address] Laboratory - Chemistry and C hemistry - challengeon 08-09-2021 Anion gap [Moles/Vol] 11 mmol/L 10 - 20 [facility] [address] [place] Work Phone: [phone] Calcium [Mass/Vol] 9.3 mg/dL 8.6 - 10.3 [facility] [address] Work Phone: [phone] Chloride [Moles/Vol] 103 mmol/L 98 - 107 [facility] [address] [place] Work Phone: [phone] CO2 [Moles/Vol] 28 mmol/L 21 - 32 [facility] [address] [place] Work Phone: [phone] Creatinine [Mass/Vol] 0.64 mg/dL See Below [facility] [address] Work Phone: [phone] Comment on above: Reference Range: 0.5 0 - 1.05 Glucose [Mass/Vol] 79 mg/dL 74 - 99 [facility] [address] Work Phone: [phone] Potassium [Moles/Vol] 3.8 mmol/L 3.5 - 5.3 [facility] [address] Work Phone: [phone] Sodium [Moles/Vol] 138 mmol/L 136 - 145 [facility] [address] Work Phone: [phone] Urea nitrogen [Mass/Vol] 6 mg/dL 6 - 23 [facility] [address] Work Phone: [phone] Laboratory - Hematology and Cell countson 08-09-2021 Erythrocyte distribution width (RBC) [Ratio] 12.1 % See Below [facility] [address] Work Phone: [phone] Comment on above: Reference Range: 11. 5 - 14.5 Hematocrit (Bld) [Volume fraction] 42.0 % See Below [facility] [address] Work Phone: [phone] Comment on above: Reference Range: 36. 0 - 46.0 Hemoglobin (Bld) [Mass/Vol] 14.2 g/dL See Below [facility] [address] Work Phone: [phone] Comment on above: Reference Range: 12. 0 - 16.0 MCHC (RBC) [Mass/Vol] 33.8 g/dL See Below [facility] [address] Work Phone: [phone] Comment on above: Reference Range: 32. 0 - 36.0 MCV (RBC) [Entitic vol] 93 fL 80 - 100 [facility] [address] Work Phone: [phone] Platelets (Bld) [#/Vol] 332 10*3/uL 150 - 450 [facility] [address] Work Phone: [phone] RBC (Bld) [#/Vol] 4.54 {x10E12/L} See Below [facility] [address] Work Phone: [phone] Comment on above: Reference Range: 4.0 0 - 5.20 WBC (Bld) [#/Vol] 8.2 10*3/uL 4.4 - 11.3 [facility] [address] Work Phone: [phone] No Panel Informationon 08-09 >60 >60 [facility] [address] Work Phone: [phone] Comment on above: CALCULATIONS OF FABBY MATED GFR ARE PERFORMED USING THE MDRD STUDY EQUATION FOR THE IDMS-TRACEABLE CREATININE METHODS. CLIN CHEM 2007;53:[id number] 0.0 {/100_WBC} 0.0 - 0.0 [facility] [address] Work Phone: Provider Note - ED v3on [...] O+. Patient will be following up in [place] if she is moving there this week. She was given a order for a repeat 48-hour hCG quantitative test. I spoke with her COMMANDING OFFICER [employer] Dr. Jimenez who she would be following up with and would plan to follow-up with her on Sunday patient was informed of this. Disclaimer: This note was dictated by speech recognition. Minor errors in training program assistant may be present. Please call if questions. [...] critically ill patient: no Electronic Signatures: Henry Burger () (Signed 09-Aug-2021 20:09) Authored: ED Notes, HPI, PMH, Clinical Impression, Attestation, Chart Review, Scores Last Updated: 09-Aug-2021 20:09 by Henry Burger () References: 1. Data Referenced From Triage - ED 09-Aug-2021 16:23 Normal [facility] Risk Screen - Adult Emergenc yon 08-09-2021 [...] material; verbal instruction Cultural Considerationsnone Developmental Considerationsnone Zoroastrian Considerationsnone Learning Assessment (Other Learner): Learning Assessment (Other Learner): Other learner availableno Pressure Injury/TB/Substance: Pressure Injury: Pressure Injury Present on Admissionno Do you have a coughno Smoking Statusnever smoker Drug Usedenies Resources Offerednot appropriate Admission Risk Screen: Significant IndicatorsComplete CAGE: CAGE: Is this an [place] patient [place] a [place] Center [place]): yes C: Have you ever felt you needed to Cut down on your drinking: no A: Have people Annoyed you by criticizing your drinking: no G: Have you ever felt Guilty about drinking: no E: Have you ever felt you needed a drink first thing in the morning (Eye-drop man) to steady your nerves or to get rid of hangover: no Electronic Signatures: Rose Alfaro (RN) (Signed 09-Aug-2021 16:28) Authored: Preferred Language, Advanced Directives, Family Violence Adult, Learning Assessment (Patient), Learning Assessment (Other Learner), Pressure Injury/TB/Substance, Pressure Injury, CAGE Last Updated: 09-Aug-2021 16:28 by Rose Alfaro (RN) Normal [facility] Triage - EDon 08-09-2021 Triage - ED [...] Accompanied By: self Language: Spoken Language Preferred: Burmese Reading Language Preferred: Burmese Stand Grinder Requested: no switch adjuster was requested MDRO: History of MDRO: no [...] obeys commands Best Verbal Response: (V5) oriented Renesto Score: 15 Cough lasting greater than 3 [...] 09-Aug-2021 16:47 by Rose Alfaro (RN) Normal [facility] UA MICROSCOPICon 08-09-2021 BACTERIA 1+ /HPF Abnormal [facility] Comment on above: Performed By: #### U AMIC #### [facility] [address] [place] [address] RBC (U) [#/Vol] /uL Normal 0-5 [facility] Comment on above: Performed By: #### U AMIC #### [facility] [address] [place] [address] SQUAMOUS EPITH. CELLS 1 /HPF Normal [facility] Comment on above: Performed By: #### U AMIC #### [facility] [address] [place] [address] WBC none Normal 0-5 [facility] Comment on above: Performed By: #### U AMIC #### [facility] [address] [place] [address] WBC CLUMPS RARE Normal [facility] Comment on above: Performed By: #### U AMIC #### [facility] [address] [place] [address] URINALYSISon 08-09-2021 Appearance (U) CLEAR Normal CLEAR [facility] Comment on above: Performed By: #### U A #### [facility] [address] [place] [address] Bilirubin Ql (U) Negative Normal NEGATIVE [facility] Comment on above: Performed By: #### U A #### [facility] [address] [place] [address] Color (U) STRAW Normal STRAW,YELLOW [facility] Comment on above: Performed By: #### U A #### [facility] [address] [place] [address] Glucose Ql (U) Negative Normal NEGATIVE [facility] Comment on above: Performed By: #### U A #### [address] [place] [address] Hemoglobin Ql (U) LARGE (3+) Abnormal NEGATIVE [facility] Comment on above: Performed By: #### U A #### [address] [place] [address] Ketones Ql (U) Negative Normal NEGATIVE [facility] Comment on above: Performed By: #### U A #### [address] [place] [address] Leukocyte esterase Test strip Ql (U) Negative Normal NEGATIVE [facility] Comment on above: Performed By: #### U A #### [address] [place] [address] Nitrite Ql (U) Negative Normal NEGATIVE [facility] Comment on above: Performed By: #### U A #### [address] [place] [address] pH (U) 7.0 [pH] Normal 5.0 - 8.0 [facility] Comment on above: Performed By: #### U A #### [address] [place] [address] Protein Ql (U) Negative Normal NEGATIVE [facility] Comment on above: Performed By: #### U A #### [address] [address] Specific gravity (U) [Rel density] 1.004 Low 1.005 - 1.035 [facility] Comment on above: Performed By: #### U A #### [address] [place] [address] Urobilinogen (U) [Mass/Vol] mg/dL Normal 0.0 - 1.9 [facility] Comment on above: Performed By: #### U A #### [address] [address] Urinalysison 08-09-2021 Color (U) STRAW See Below [facility] [address] Work Phone: Comment on above: Reference Range: STR AW,YELLOW Glucose Ql (U) Negative NEGATIVE [facility] [address] Work Phone: Ketones Ql (U) Negative NEGATIVE [facility] [address] Work Phone: [phone] Leukocyte esterase Test strip Ql (U) Negative NEGATIVE [facility] [address] Work Phone: [phone] pH (U) 7.0 [pH] 5.0 - 8.0 [facility] [address] Work Phone: [phone] Protein (U) [Mass/Vol] Negative NEGATIVE [facility] [address] Work Phone: [phone] RBC (U) [#/Vol] LARGE (3+) Abnormal NEGATIVE [facility] [address] Work Phone: [phone] Specific gravity (U) [Rel density] 1.004 1 below low threshold See Below [facility] [address] Work Phone: [phone] Comment on above: Reference Range: 1.0 05 - 1.035 Urinalysis Negative NEGATIVE [facility] [address] Work Phone: [phone] Urinalysis <2.0 0.0 - 1.9 [facility] [address] Work Phone: [phone] Urinalysis CLEAR CLEAR [facility] [address] Work Phone: [phone] Urinalysis, Microscopicon Urinalysis, Microscopic 1+ Abnormal [facility] [address] Work Phone: [phone] Urinalysis, Microscopic 1 {/HPF} [facility] [address] Work Phone: [phone] Urinalysis, Microscopic <1 0-5 [facility] [address] Work Phone: [phone] Urinalysis, Microscopic RARE [facility] [address] Work Phone: [phone] Urinalysis, Microscopic none 0-5 [facility] [address] Work Phone: [phone] Vital Signs Date Time Vital Sign Value Performing Clinician Facility 05-22-2025 09:28-0400 Body mass index (BMI) [Ratio] 40.8 kg/m2 Nicolette Bobo TRANSFORMER MAKER.CNM Work Phone: [facility] 05-22-2025 09:28-0400 Body weight 108.41 kg Nicolette Bobo TRANSFORMER MAKER.CNM Work Phone: [facility] 05-22-2025 09:28-0400 Diastolic blood pressure 91 mm[Hg] Nicolette Bobo TRANSFORMER MAKER.CNM Work Phone: [facility] 05-22-2025 09:28-0400 Systolic blood pressure 131 mm[Hg] Nicolette Bobo TRANSFORMER MAKER.CNM Work Phone: [facility] 05-19-2025 09:41-0400 Body mass index (BMI) [Ratio] 40.6 kg/m2 George Vieira MD Work Phone: [facility] 05-19-2025 09:41-0400 Body weight 107.86 kg George Vieira MD Work Phone: [facility] 05-19-2025 09:41-0400 Diastolic blood pressure 82 mm[Hg] George Vieira MD Work Phone: [facility] 05-19-2025 09:41-0400 Systolic blood pressure 120 mm[Hg] George Vieira MD Work Phone: [facility] 05-15-2025 11:00-0400 Body mass index (BMI) [Ratio] 40.12 kg/m2 Zahra Muniz MD Work Phone: [facility] 05-15-2025 11:00-0400 Body weight 106.59 kg Zahra Muniz MD Work Phone: [facility] 05-15-2025 11:00-0400 Diastolic blood pressure 94 mm[Hg] Zahra Muniz MD Work Phone: [facility] 05-15-2025 11:00-0400 Systolic blood pressure 136 mm[Hg] Zahra Muniz MD Work Phone: [facility] 05-14-2025 13:37-0400 Diastolic blood pressure 79 mm[Hg] No Primary Care Physician [facility] 05-14-2025 13:37-0400 Heart rate 91 /min No Primary Care Physician [facility] 05-14-2025 13:37-0400 Systolic blood pressure 123 mm[Hg] No Primary Care Physician [facility] 05-14-2025 11:41-0400 Body height 162.56 cm No Primary Care Physician [facility] 05-14-2025 11:41-0400 Body mass index (BMI) [Ratio] 40.3 kg/m2 No Primary Care Physician [facility] 05-14-2025 11:41-0400 Body weight 106.59 kg No Primary Care Physician [facility] 05-14-2025 11:25-0400 Body temperature 98.4 [degF] No Primary Care Physician [facility] 05-14-2025 11:25-0400 Respiratory rate 14 /min No Primary Care Physician [facility] 05-14-2025 11:25-0400 SaO2% (BldA) [Mass fraction] 99 % No Primary Care Physician [facility] 05-12-2025 14:21-0400 Body mass index (BMI) [Ratio] 40.15 kg/m2 George Vieira MD Work Phone: [facility] 05-12-2025 14:21-0400 Body weight 106.69 kg George Vieira MD Work Phone: [facility] 05-12-2025 14:21-0400 Diastolic blood pressure 86 mm[Hg] George Vieira MD Work Phone: [facility] 05-12-2025 14:21-0400 Systolic blood pressure 120 mm[Hg] George Vieira MD Work Phone: [facility] 05-06-2025 18:07-0400 Diastolic blood pressure 66 mm[Hg] No Primary Care Physician [facility] 05-06-2025 18:07-0400 Heart rate 82 /min No Primary Care Physician [facility] 05-06-2025 18:07-0400 Systolic blood pressure 111 mm[Hg] No Primary Care Physician [facility] 05-06-2025 18:03-0400 SaO2% (BldA) [Mass fraction] 100 % No Primary Care Physician [facility] 05-06-2025 14:37-0400 Body height 162.56 cm No Primary Care Physician [facility] 05-06-2025 14:37-0400 Body mass index (BMI) [Ratio] 39.4 kg/m2 No Primary Care Physician [facility] 05-06-2025 14:37-0400 Body weight 104.32 kg No Primary Care Physician [facility] 04-27-2025 13:34-0400 Body mass index (BMI) [Ratio] 39.27 kg/m2 Zahra Muniz MD Work Phone: [facility] 04-27-2025 13:34-0400 Body weight 104.33 kg Zahra Muniz MD Work Phone: [facility] 04-27-2025 13:34-0400 Diastolic blood pressure 79 mm[Hg] Zahra Muniz MD Work Phone: [facility] 04-27-2025 13:34-0400 Systolic blood pressure 127 mm[Hg] Zahra Muniz MD Work Phone: [facility] 04-21-2025 09:57-0400 Body mass index (BMI) [Ratio] 39.44 kg/m2 Zahra Muniz MD Work Phone: [facility] 04-21-2025 09:57-0400 Body weight 104.78 kg Zahra Muniz MD Work Phone: [facility] 04-21-2025 09:57-0400 Diastolic blood pressure 80 mm[Hg] Zahra Muniz MD Work Phone: [facility] 04-21-2025 09:57-0400 Systolic blood pressure 120 mm[Hg] Zahra Muniz MD Work Phone: [facility] 04-07-2025 15:50-0400 Body mass index (BMI) [Ratio] 39.1 kg/m2 Irene Mc APRN.CNM Work Phone: [facility] 04-07-2025 15:50-0400 Body weight 103.87 kg Irene Mc TRANSFORMER MAKER.CNM Work Phone: [facility] 04-07-2025 15:50-0400 Diastolic blood pressure 72 mm[Hg] Irene Mc TRANSFORMER MAKER.CNM Work Phone: [facility] 04-07-2025 15:50-0400 Systolic blood pressure 118 mm[Hg] Irene Alexandro TRANSFORMER MAKER.CNM Work Phone: [facility] 03-25-2025 08:38-0400 Body mass index (BMI) [Ratio] 39.44 kg/m2 Merry White MD Work Phone: [facility] 03-25-2025 08:38-0400 Body weight 104.78 kg Merry White MD Work Phone: [facility] 03-25-2025 08:38-0400 Diastolic blood pressure 74 mm[Hg] Merry White MD Work Phone: [facility] 03-25-2025 08:38-0400 Systolic blood pressure 122 mm[Hg] Merry White MD Work Phone: [facility] 03-18-2025 14:58-0400 Body mass index (BMI) [Ratio] 39.1 kg/m2 Irene Mc APRN.CNM Work Phone: [facility] 03-18-2025 14:58-0400 Body weight 103.87 kg Irene Mc TRANSFORMER MAKER.CNM Work Phone: [facility] 03-18-2025 14:58-0400 Diastolic blood pressure 79 mm[Hg] Irene Mc TRANSFORMER MAKER.CNM Work Phone: [facility] Comment on above: TruBP Average 03-18-2025 14:58-0400 Systolic blood pressure 117 mm[Hg] Irene Mc TRANSFORMER MAKER.CNM Work Phone: [facility] Comment on above: TruBP Average 02-25-2025 08:39-0400 Body mass index (BMI) [Ratio] 38.52 kg/m2 Marlene Jimenez APRN.[employer] Work Phone: [facility] 02-25-2025 08:39-0400 Body weight 102.33 kg Marlene Haury TRANSFORMER MAKER.[employer] Work Phone: [facility] 02-25-2025 08:39-0400 Diastolic blood pressure 70 mm[Hg] Marlene Haury TRANSFORMER MAKER.[employer] Work Phone: [facility] 02-25-2025 08:39-0400 Systolic blood pressure 116 mm[Hg] Marlene Haury TRANSFORMER MAKER.[employer] Work Phone: [facility] 01-28-2025 09:06-0400 Body mass index (BMI) [Ratio] 36.54 kg/m2 Marlene Haury TRANSFORMER MAKER.[employer] Work Phone: [facility] 01-28-2025 09:06-0400 Body weight 97.07 kg Marlene Haury TRANSFORMER MAKER.[employer] Work Phone: [facility] 01-28-2025 09:06-0400 Diastolic blood pressure 72 mm[Hg] Marlene Haury TRANSFORMER MAKER.[employer] Work Phone: [facility] 01-28-2025 09:06-0400 Systolic blood pressure 120 mm[Hg] Marlene Haury TRANSFORMER MAKER.[employer] Work Phone: [facility] 12-31-2024 08:39-0400 Body mass index (BMI) [Ratio] 35.34 kg/m2 Merry White MD Work Phone: [facility] 12-31-2024 08:39-0400 Body weight 93.89 kg Merry White MD Work Phone: [facility] 12-31-2024 08:39-0400 Diastolic blood pressure 76 mm[Hg] Merry White MD Work Phone: [facility] 12-31-2024 08:39-0400 Systolic blood pressure 112 mm[Hg] Merry White MD Work Phone: [facility] 12-03-2024 08:32-0500 Body mass index (BMI) [Ratio] 33.46 kg/m2 Nicolette Plotts TRANSFORMER MAKER.CNM Work Phone: [facility] 12-03-2024 08:32-0500 Body weight 88.91 kg Nicolette Danielsonts TRANSFORMER MAKER.CNM Work Phone: [facility] 12-03-2024 08:32-0500 Diastolic blood pressure 74 mm[Hg] Nicolette Plotts TRANSFORMER MAKER.CNM Work Phone: [facility] 12-03-2024 08:32-0500 Systolic blood pressure 106 mm[Hg] Nicolette Plotts TRANSFORMER MAKER.CNM Work Phone: [facility] 10-31-2024 11:04-0500 Body height 163 cm Marlene Haury TRANSFORMER MAKER.[employer] Work Phone: [facility] 10-31-2024 11:04-0500 Body mass index (BMI) [Ratio] 33.12 kg/m2 Marlene Haury TRANSFORMER MAKER.[employer] Work Phone: [facility] 10-31-2024 11:04-0500 Body weight 88 kg Marlene Haury TRANSFORMER MAKER.[employer] Work Phone: [facility] 10-31-2024 11:04-0500 Diastolic blood pressure 60 mm[Hg] Marlene Haury TRANSFORMER MAKER.[employer] Work Phone: [facility] 10-31-2024 11:04-0500 Systolic blood pressure 120 mm[Hg] Marlene Haury TRANSFORMER MAKER.[employer] Work Phone: [facility] 10-24-2024 09:04-0500 Body mass index (BMI) [Ratio] 32.61 kg/m2 George Vieira MD Work Phone: [facility] 10-24-2024 09:04-0500 Body weight 86.18 kg George Vieira MD Work Phone: [facility] 10-24-2024 09:04-0500 Diastolic blood pressure 72 mm[Hg] George Vieira MD Work Phone: [facility] 10-24-2024 09:04-0500 Systolic blood pressure 116 mm[Hg] George Vieira MD Work Phone: [facility] 10-16-2024 11:53-0500 Body mass index (BMI) [Ratio] 32.27 kg/m2 Marlene Jimenez APRN.[employer] Work Phone: [facility] 10-16-2024 11:53-0500 Body weight 85.28 kg Marlene Jimenez APRN.[employer] Work Phone: [facility] 10-16-2024 11:53-0500 Diastolic blood pressure 70 mm[Hg] Marlene Jimenez APRN.[employer] Work Phone: [facility] 10-16-2024 11:53-0500 Systolic blood pressure 118 mm[Hg] Marlene Jimenez APRN.[employer] Work Phone: [facility] 09-18-2024 10:11-0500 Body mass index (BMI) [Ratio] 30.73 kg/m2 Nurse Wstr Work Phone: [facility] 09-18-2024 10:11-0500 Body weight 81.19 kg Nurse Wstr Work Phone: [facility] 09-18-2024 10:11-0500 Diastolic blood pressure 70 mm[Hg] Nurse Wstr Work Phone: [facility] 09-18-2024 10:11-0500 Heart rate 82 /min Nurse Wstr Work Phone: [facility] 09-18-2024 10:11-0500 Systolic blood pressure 112 mm[Hg] Nurse Wstr Work Phone: [facility] 06-19-2024 09:38-0400 Body mass index (BMI) [Ratio] 30.42 kg/m2 Leona Enriquez APRN.[employer] Work Phone: [facility] 06-19-2024 09:38-0400 Body weight 80.38 kg Leona Enriquez APRN.[employer] Work Phone: [facility] 06-19-2024 09:38-0400 Diastolic blood pressure 76 mm[Hg] Leona Enriquez APRN.[employer] Work Phone: [facility] 06-19-2024 09:38-0400 Heart rate 90 /min Leona Enriquez APRN.[employer] Work Phone: [facility] 06-19-2024 09:38-0400 SaO2% (BldA) [Mass fraction] 100 % Leona Enriquez APRN.[employer] Work Phone: [facility] 06-19-2024 09:38-0400 Systolic blood pressure 128 mm[Hg] Leona Enriquez APRN.[employer] Work Phone: [facility] 03-28-2024 22:00-0400 Diastolic blood pressure 74 mm[Hg] [facility] 03-28-2024 22:00-0400 Heart rate 87 /min [facility] 03-28-2024 22:00-0400 Respiratory rate 17 /min [facility] 03-28-2024 22:00-0400 SaO2% (BldA) [Mass fraction] 98 % [facility] 03-28-2024 22:00-0400 Systolic blood pressure 111 mm[Hg] [facility] 03-28-2024 18:20-0400 Body temperature 98.91 [degF] [facility] 03-18-2024 14:05-0400 Body mass index (BMI) [Ratio] 32.3 kg/m2 Zahra Muniz MD Work Phone: [facility] 03-18-2024 14:05-0400 Body weight 85.37 kg Zahra Muniz MD Work Phone: [facility] 03-18-2024 14:05-0400 Diastolic blood pressure 76 mm[Hg] Zahra Muniz MD Work Phone: [facility] 03-18-2024 14:05-0400 Systolic blood pressure 122 mm[Hg] Zahra Muniz MD Work Phone: [facility] 02-06-2024 11:32-0400 Body mass index (BMI) [Ratio] 32.48 kg/m2 Leona Enriquez APRN.[employer] Work Phone: [facility] 02-06-2024 11:32-0400 Body weight 85.82 kg Leona Enriquez APRN.[employer] Work Phone: [facility] 02-06-2024 11:32-0400 Diastolic blood pressure 70 mm[Hg] Leona Enriquez APRN.[employer] Work Phone: [facility] 02-06-2024 11:32-0400 Heart rate 122 /min Leona Enriquez APRN.[employer] Work Phone: [facility] 02-06-2024 11:32-0400 Systolic blood pressure 110 mm[Hg] Leona Enriquez APRN.[employer] Work Phone: [facility] 10-01-2023 00:39-0500 Body weight 99.79 kg [facility] 09-03-2023 10:00-0500 Body height 162.56 cm [facility] 09-03-2023 10:00-0500 Body weight 99.79 kg [facility] 08-09-2023 13:19-0500 Body weight 102.51 kg Leona Enriquez APRN.[employer] Work Phone: [facility] 08-09-2023 13:19-0500 Diastolic blood pressure 78 mm[Hg] Leona Enriquez APRN.[employer] Work Phone: [facility] 08-09-2023 13:19-0500 Systolic blood pressure 118 mm[Hg] Leona Enriquez APRN.[employer] Work Phone: [facility] 08-09-2023 11:00-0500 Body height 162.56 cm [facility] 08-09-2023 11:00-0500 Body weight 103.96 kg [facility] 07-11-2023 13:06-0400 Body height 162.6 cm Leona Enriquez APRN.[employer] Work Phone: [facility] 07-11-2023 13:06-0400 Body weight 105.69 kg Leona Enriquez APRN.[employer] Work Phone: [facility] 07-11-2023 13:06-0400 Diastolic blood pressure 84 mm[Hg] Leona Enriquez APRN.[employer] Work Phone: [facility] 07-11-2023 13:06-0400 Heart rate 96 /min Leona Enriquez APRN.[employer] Work Phone: [facility] 07-11-2023 13:06-0400 SaO2% (BldA) [Mass fraction] 97 % Leona Enriquez APRN.[employer] Work Phone: [facility] 07-11-2023 13:06-0400 Systolic blood pressure 122 mm[Hg] Leona Enriquez APRN.[employer] Work Phone: [facility] 02-01-2022 15:45-0400 Body weight 105.42 kg Araceli Medrano MD Work Phone: [facility] 02-01-2022 15:45-0400 Diastolic blood pressure 80 mm[Hg] Araceli Medrano MD Work Phone: [facility] 02-01-2022 15:45-0400 Systolic blood pressure 122 mm[Hg] Araceli Medrano MD Work Phone: [facility] 08-09-2021 22:17-0500 Body temperature 98.06 [degF] No Pcp Required [facility] Other Phone (unformatted): [phone] 08-09-2021 22:17-0500 Diastolic blood pressure 73 mm[Hg] No Pcp Required [facility] [facility] Other Phone (unformatted): [phone] 08-09-2021 22:17-0500 Heart rate 79 /min No Pcp Required [facility] Other Phone (unformatted): [phone] 08-09-2021 22:17-0500 Respiratory rate 18 /min No Pcp Required [facility] Other Phone (unformatted): [phone] 08-09-2021 22:17-0500 SaO2% (BldA) [Mass fraction] 98 % No Pcp Required [facility] Other Phone (unformatted): [phone] 08-09-2021 22:17-0500 Systolic blood pressure 137 mm[Hg] No Pcp Required [facility] Other Phone (unformatted): [phone] 08-09-2021 18:23-0500 Body height 157.4 cm No Pcp Required [facility] Other Phone (unformatted): [phone] 08-09-2021 18:23-0500 Body weight 100 kg No Pcp Required [facility] Other Phone (unformatted): [phone] Encounters Encounter Date Encounter Type Care Provider Facility Start: 05-24-2025 ambulatory No Primary Car e Physician Facility:[facility] Start: 05-22-2025 End: 05-22-2025 Patient encounter procedure [...] Start: 05-22-2025 End: 05-22-2025 ambulatory NICOLETTE BOBO Facility:[facility] Start: 05-19-2025 End: 05-19-2025 Patient encounter procedure [...] Start: 05-19-2025 End: 05-19-2025 ambulatory MERRY WHITE Facility:[facility] Start: 05-15-2025 End: 05-15-2025 Patient encounter procedure [...] Start: 05-15-2025 End: 05-15-2025 ambulatory ZAHRA MUNIZ Facility:[facility] Start: 05-14-2025 End: 05-14-2025 Telephone encounter George [...] Start: 05-12-2025 End: 05-12-2025 ambulatory GEORGE VIEIRA Facility:[facility] Start: 05-07-2025 End: 05-07-2025 ambulatory ZAHRA MUNIZ Facility:[facility] Start: 05-06-2025 End: 05-06-2025 ambulatory No Primary [...] Start: 04-27-2025 End: 04-27-2025 ambulatory ZAHRA MUNIZ Facility:[facility] Start: 04-22-2025 End: 04-23-2025 ambulatory Zahra Muniz [...] 04-07-2025 Patient encounter procedure Whi Tech 2 Director [facility] Comment on [...] for vaccination Start: 04-07-2025 End: 04-07-2025 ambulatory [facility] Facility:[facility] Start: 03-31-2025 End: 03-31-2025 E-mail encounter from caregiver Lidia Pritchett RN Work Phone: Diabetic Education [facility] Start: 03-31-2025 End: 03-31-2025 Nutrition therapy Lidia Pritchett RN Work Phone: Diabetic Education [facility] Comment on above: nutrition visit sche duled for April 06 Start: 03-31-2025 End: 04-01-2025 Telephone encounter Damien Khan RD Work Phone: [facility] Diabetes Education [place] Comment on above: Patient Update Start: 03-31-2025 End: 03-31-2025 Nursing evaluation of patient and report Lidia Pritchett RN Work Phone: Diabetic Education [facility] Comment on above: Diet controlled gest ational diabetes mellitus (GDM) in third trimester (HCC) Start: 03-31-2025 End: 03-31-2025 ambulatory Lidia Pritchett RN Work Phone: Diabetic Education [facility] Comment on above: link for book and co ntact information Start: 03-27-2025 End: 03-27-2025 Telephone encounter Nicolette Bobo APRN.CNM Work Phone: OB/Gynecology Comment on above: Gestational Diabetes (/) Start: 03-27-2025 End: 03-27-2025 ambulatory NICOLETTE BOBO Facility:[facility] Start: 03-26-2025 End: 03-26-2025 Follow-up encounter Marlene Jimenez APRN.[employer] Work Phone: OB/Gynecology Comment on above: Results Start: 03-25-2025 End: 03-25-2025 ambulatory MARLENE JIMENEZ Facility:[facility] Start: 03-25-2025 End: 03-25-2025 Patient encounter procedure [...] Start: 03-16-2025 End: 03-17-2025 ambulatory Marlene Jimenez APRN.[employer] Work Phone: OB/Gynecology Comment on above: Randomly dizzy Start: 02-25-2025 End: 02-25-2025 Patient encounter procedure Marlene Jimenez APRN.[employer] Work Phone: OB/Gynecology Comment on above: Supervision [...] End: 01-28-2025 Patient encounter procedure Marlene Jimenez APRN.[employer] Work Phone: OB/Gynecology Comment on above: Supervision [...] Start: 01-28-2025 End: 03-05-2025 ambulatory Marlene Jimenez APRN.[employer] Work Phone: OB/Gynecology Comment on above: Ultrasound result qu estion Start: 01-21-2025 End: 03-05-2025 ambulatory Marlene Jimenez APRN.[employer] Work Phone: OB/Gynecology Comment on above: Need release form fo r dentist Start: 12-31-2024 End: 12-31-2024 ambulatory MERRY WHITE Facility:[facility] Start: 12-31-2024 End: 12-31-2024 Patient encounter procedure Merry White MD Work Phone: OB/Gynecology Comment on above: 16 weeks gestation o f (HCC) (Primary Dx); Supervision of high risk in second trimester (HCC) Start: 12-10-2024 End: 12-10-2024 ambulatory Marlene Jimenez APRN.[employer] Work Phone: OB/Gynecology Start: 12-10-2024 End: 12-10-2024 Patient encounter procedure Marlene Jimenez APRN.CNP Work Phone: OB/Gynecology Comment on above: 01/03 appointment Start: 12-03-2024 End: 12-03-2024 ambulatory MERRY WHITE Facility:[facility] Start: 12-03-2024 End: 12-03-2024 Patient encounter procedure Whi Tech 1 Director [facility] Comment on above: Encounter for antena june screening for malformation using ultrasound (Primary Dx); 12 weeks gestation of Encounter for superv ision of high risk in first trimester, antepartum (Primary Dx); 12 weeks gestation of ; Heartburn during in first trimester Start: 11-28-2024 End: 11-28-2024 ambulatory Laquita Chinchilla [facility] Work Phone: Genetic [facility] Comment on above: Family history of bi rth defect (Primary Dx); Encounter of female for testing for genetic disease carrier status for procreative management Start: 11-28-2024 End: 11-28-2024 Telemedicine consultation with patient Laquita Chinchilla [facility] Work Phone: [facility] Start: 11-24-2024 End: 11-24-2024 Telephone encounter Laquita Chinchilla [facility] Work Phone: [facility] Comment on above: Appointment (Records ) Start: 11-21-2024 End: 01-21-2025 Follow-up encounter Marlene Jimenez APRN.CNP Work Phone: OB/Gynecology Start: 11-20-2024 End: 01-20-2025 Follow-up encounter Marlene Jimenez APRN.CNP Work Phone: OB/Gynecology Start: 11-17-2024 End: 11-17-2024 ambulatory MARLENE JIMENEZ Facility:[facility] Start: 11-03-2024 End: 11-03-2024 ambulatory Marlene Jimenez APRN.CNP Work Phone: OB/Gynecology Comment on above: Genetic blood test Start: 10-31-2024 End: 10-31-2024 ambulatory MARLENE JIMENEZ Facility:[facility] Start: 10-31-2024 End: 10-31-2024 Patient encounter procedure Marlene Jimenez APRN.[employer] Work Phone: OB/Gynecology Comment on above: Encounter [...] Start: 10-26-2024 End: 10-28-2024 Refill Leona Enriquez APRN.[employer] Work Phone: OB/Gynecology Comment on above: Refill Request Start: 10-24-2024 End: 10-24-2024 Patient encounter procedure George Vieira MD Work Phone: OB/Gynecology Comment on above: Early stage of pregn gab (Primary Dx); Insomnia, unspecified type; related nausea, antepartum; Migraine without status migrainosus, not intractable, unspecified migraine type Start: 10-24-2024 End: 10-24-2024 ambulatory GEORGE VIEIRA Facility:[facility] Start: 10-24-2024 End: 10-24-2024 ambulatory GEORGE VIEIRA Facility:[facility] Start: 10-24-2024 End: 10-24-2024 Patient encounter procedure [facility] Work Phone: OB/Gynecology Comment on above: Hx of ectopic pregna ncy Start: 10-16-2024 End: 10-16-2024 Patient encounter procedure Marlene Jimenez APRN.[employer] Work Phone: OB/Gynecology Comment on above: with uncer tain dates in first trimester (Primary Dx); History of ectopic Start: 10-16-2024 End: 10-16-2024 ambulatory MARLENE JIMENEZ Facility:[facility] Start: 10-15-2024 End: 10-15-2024 ambulatory George Vieira MD Work Phone: OB/Gynecology Comment on above: Experiencing light s potting Start: 2024 End: 2024 ambulatory GEORGE VIEIRA Facility:[facility] Start: 10-03-2024 End: 10-03-2024 ambulatory GEORGE VIEIRA Facility:[facility] Start: 10-02-2024 End: 10-07-2024 Telephone encounter Zahra Floyd RN Obstetrics/Gynecolog y Comment on above: [employer] Inserter - O ther (Initial OB RN CC pool/) Start: 09-18-2024 End: 09-18-2024 ambulatory MARLENE JIMENEZ Facility:[facility] Start: 09-18-2024 End: 09-18-2024 Nursing evaluation of patient and report Nurse [employer] Manager [facility] Work Phone: OB/Gynecology Comment on above: PCOS (polycystic ova lobito syndrome); Elevated LDL cholesterol level; Class 2 obesity with body mass index (BMI) of 39.0 to 39.9 in adult, unspecified obesity type, unspecified whether serious comorbidity present Start: 06-19-2024 End: 06-19-2024 ambulatory LEONA ENRIQUEZ Facility:[facility] Start: 06-19-2024 End: 06-19-2024 Patient encounter procedure Leona Enirquez APRN.[employer] Work Phone: OB/Gynecology Comment on above: PCOS (polycystic ova lobito syndrome) (Primary Dx); Elevated LDL cholesterol level; Ocular migraine; Class 2 obesity with body mass index (BMI) of 39.0 to 39.9 in adult, unspecified obesity type, unspecified whether serious comorbidity present Start: 05-13-2024 Get Medical Advice Leona osullivan APRN.[employer] Work Phone: OB/Gynecology Comment on above: Phentermine refill Start: 04-02-2024 End: 04-02-2024 ambulatory Treatment Rm 6 Rafa [facility] Work Phone: Hematology/Oncology Comment on above: [...] Start: 03-28-2024 End: 03-31-2024 ambulatory ALEXA Avalos [facility] Start: 03-28-2024 End: 03-28-2024 Emergency department patient visit [facility] Work Phone: Comment on above: Acute cystitis with hematuria (Primary Dx); Vaginal bleeding in ([facility]-H[facility]) Start: 03-28-2024 End: 03-28-2024 Subsequent hospital visit by physician Luis Yeagerv1 [facility] Comment on above: Arrived Start: 03-18-2024 End: 03-18-2024 Office outpatient visit 15 minutes Zahra Muniz MD Work Phone: OB/Gynecology Comment on above: Missed menses (Prima ry Dx); Encounter for BCP ( control pills) initial prescription; Threatened Start: 03-15-2024 ambulatory Araceli Roque Work Phone: OB/Gynecology Comment on above: mat weaver doctor advis ed to reach out Start: 03-07-2024 Refill Leona BARBOZA RN.[employer] Work Phone: OB/Gynecology Comment on above: Refill Request Metformin Start: 02-06-2024 End: 02-06-2024 Office outpatient visit 25 minutes Leona Enriquez APRN.[employer] Work Phone: OB/Gynecology Comment on above: PCOS (polycystic ova lobito syndrome) (Primary Dx); Elevated LDL cholesterol level; Ocular migraine; Class 2 obesity with body mass index (BMI) of 39.0 to 39.9 in adult, unspecified obesity type, unspecified whether serious comorbidity present Start: 12-10-2023 ambulatory Leona BARBOZA RN.[employer] Work Phone: OB/Gynecology Comment on above: Metformin Start: 11-28-2023 Refill Leona BARBOZA RN.[facility] Work Phone: OB/Gynecology Comment on above: Refill Request Start: 11-08-2023 End: 11-29-[address] [facility] Work Phone: Start: 11-08-2023 End: 11-29-2023 [facility] Start: 09-03-2023 End: 09-30-2023 [facility] Start: 08-09-2023 End: 08-09-2023 Patient encounter procedure Leona Enriquez APRN.[employer] Work Phone: OB/Gynecology Comment on above: PCOS (polycystic ova lobito syndrome) (Primary Dx); Elevated LDL cholesterol level; Class 2 obesity with body mass index (BMI) of 39.0 to 39.9 in adult, unspecified obesity type, unspecified whether serious comorbidity present Start: 08-09-2023 End: 08-30-[address] [facility] Work Phone: Start: 08-09-2023 End: 08-30-2023 [facility] Start: 07-16-2023 ambulatory Leona BARBOZA RN.[facility] Work Phone: OB/Gynecology Comment on above: Thank you Start: 07-11-2023 End: 07-11-2023 Patient encounter procedure Leona Enriquez APRN.[employer] Work Phone: OB/Gynecology Comment on above: PCOS [...] with patient Araceli Medrano MD Work Phone: [facility] Start: 02-14-2022 ambulatory Araceli Roque Work Phone: [facility] Start: 02-14-2022 Manual pelvic examination Araceli Medrano MD Work Phone: OB/Gynecology Comment on above: Question regarding P ELVIC US WHI Start: 02-13-2022 End: 02-13-2022 ambulatory Araceli Medrano MD Work Phone: OB/Gynecology Comment on above: DUB Start: 02-13-2022 End: 02-13-2022 Patient encounter procedure [facility]aceli [facility]rano [facility] Start: 02-01-2022 End: 02-01-2022 Patient encounter procedure Araceli Medrano MD Work Phone: OB/Gynecology Comment on above: DUB (dysfunctional u terine bleeding) (Primary Dx); Irregular periods; Class 3 severe obesity with body mass index (BMI) of 40.0 to 44.9 in adult, unspecified obesity type, unspecified whether serious comorbidity present (HCC); Female infertility Start: 08-15-2021 Chart Update No PCP None [address] Work Phone: Start: 08-09-2021 End: 08-09-2021 Emergency department patient visit [id number] Other Phone (unformatted): [phone] Procedures Date Procedure Procedure Detail Performing Clinician Start: 05-22-2025 Urnls dip stick/tabl et rgnt non-auto w/o micrscp Nicolette Bobo TRANSFORMER MAKER.CNM Work Phone: Start: 05-19-2025 Urnls dip stick/tabl [...] after 1st trimest 10/01 gestation Nicolette Jagjitayesha TRANSFORMER MAKER.CNM Work Phone: Start: 01-28-2025 Us preg uterus after 1st trimest 10/01 gestation Marlene Jimenez TRANSFORMER MAKER.[employer] Work Phone: Start: 12-03-2024 Us preg uterus after 1st trimest 10/01 gestation Marlene Jimenez [employer]FORM[employer] Work Phone: Start: 11-17-2024 Antibody screen MARLENE OVIEDO Comment on above: Order Comment: Speci men Type: BLOOD SPECIMEN Ordering Facility: [facility] Address: [address] [place] [address] Performed By: #### 1 [id number] #### [facility] CLIA [id number] [address] [place] [address] [place] [address] [place] Start: 10-31-2024 Adult depression screening assessment Laquita Chinchilla [facility] Work Phone: Start: 10-24-2024 Us preg uterus after 1st trimest 10/01 gestation George Vieira MD Work Phone: Start: 10-16-2024 Us uterus limited fetuses Marlene Jimenez TRANSFORMER MA[employer]ER.[employer] Work Phone: Start: 03-28-2024 Us uterus 1 4 wk transabdl 10/01 gestat Alexa Duvall [employer]ANSFORMER [employer] Work Phone: Start: 03-28-2024 Urinalysis complete W Reflex Culture panel - Urine Alexa Duvall [employer] Work Phone: Start: 03-28-2024 Urnls dip stick/tabl et reagent auto microscopy Alexa Duvall [employer] Work Phone: Start: 03-28-2024 Blood typing serolog ic rh (d) Alexa Duvall [employer] Work Phone: Start: 03-28-2024 Comprehensive metabo lic panel Alexa Duvall [employer]FORMER [employer] Work Phone: Start: 03-28-2024 Ecg routine ecg w/le ast 12 lds trcg only w/o i&r Alexa Duvall [employer] Work Phone: H/O: section Previous c esarean delivery affecting No Primary Care Physician H/O: section Previous c esarean delivery affecting Nicolette Bobo CNM Plan of Treatment Date Care Activity Detail Author Start: 2070 RSV Vaccine (1 - 1-dose 75+ series) RSV Vaccine (1 - 1-dose 75+ series) [facility] Start: 2045 Zoster Vaccines (1 of 2) Zoster Vaccines (1 of 2) [facility] Start: 04-07-2035 Urine microalbumin profile DTaP,Tdap,Td Vaccine (8 - Td or Tdap) [facility] Start: 10-31-2027 Screening for malignant neoplasm of cervix Cervical Cancer Screening [facility] Start: 10-31-2025 Anxiety Screening Anxiety Screening [facility] Start: 10-31-2025 Depression Screening Depression Screening [facility] Start: 10-31-2025 Screening for malignant neoplasm of cervix Cervical Cancer Screening [facility] Start: 06-12-2025 End: 06-12-2025 Patient encounter procedure OB/Gynecology Comment on above: NST NST/OB Start: 06-09-2025 End: 06-09-2025 Patient encounter procedure OB/Gynecology Comment on above: NST NST/OB Start: 06-05-2025 End: 06-05-2025 Patient encounter procedure OB/Gynecology Comment on above: NST/OB Start: 06-03-2025 End: 06-03-2025 Patient encounter procedure 06/03/2025 9:20 AM EDT Office Visit OB/Gynecology [address] [place], [place] [id number] Vicky Rodgers MD [address] [place] [address] POst 1 week OB/Gynecology Comment on above: POst 1 week Start: 06-02-2025 End: 06-02-2025 Patient encounter procedure OB/Gynecology Comment on above: NST NST/OB Start: 06-01-2025 Influenza vaccination [facility] Start: 05-29-2025 End: 05-29-2025 Patient encounter procedure [...] Growth/OB per RR Start: 05-14-2025 Patient discharge [facility] Start: 05-13-2025 End: 05-13-2025 Patient encounter procedure OB/Gynecology Comment on above: OB NST Start: 05-07-2025 End: 05-07-2025 Patient encounter procedure OB/Gynecology Comment on above: NST NST/OB Start: 05-06-2025 End: 05-06-2025 Patient encounter procedure 05/06/2025 8:30 AM EDT Routine Office Visit OB/Gynecology [address] [place] [id number] Merry White MD [address] [id number] OB OB/Gynecology Comment on above: OB Start: 05-06-2025 Patient discharge [facility] Start: 04-28-2025 End: 04-28-2025 Patient encounter procedure [...] Visit OB/Gynecology [address] [place] [address] Zahra Muniz MD [address] [place] [id number] OB OB/Gynecology Comment on above: OB Start: 04-21-2025 End: 04-21-2025 Patient encounter procedure 04/21/2025 8:30 AM EDT Routine Office Visit Maternal Medicine [address] [place] [address] Growth Maternal Medicine Comment on above: Growth Start: 04-08-2025 End: 04-08-2025 Patient encounter procedure 04/08/2025 8:45 AM EDT Routine Office Visit OB/Gynecology [address] [place] [address] Marlene Jimenez APRN.[employer] [address] [place] [address] OB OB/Gynecology Comment on above: OB Start: 04-07-2025 End: 04-07-2025 Patient encounter procedure Maternal Medicine Comment on above: Growth OB-growth U/S at 3 OB-growth U/S at 3, Pt needs to schedule nutrition appointment Start: 04-06-2025 End: 04-06-2025 Nutrition therapy 04/06/2025 3:00 PM EDT [facility] NUTRITION [address] [facility] [place] [address] Diet controlled gestational diabetes mellitus (GDM) in third trimester (HCC) [O2. [facility] NUTRITION Comment on above: Diet controlled gestational diabetes terri litus (GDM) in third trimester (HCC) [O2. Start: 03-31-2025 End: 03-31-2025 Nursing evaluation of patient and report 03/31/2025 9:00 AM EDT Nurse Visit Diabetic Education [facility] [address] [place] [phone] Lidia Pritchett, [place] [address] [address] [place] [phone] How to control gestational diabetes Diabetic Education [facility] Comment on above: How to control gestational diabetes Start: 03-28-2025 End: 06-27-2025 ANEMIA REFLEX PANEL ANEMIA REFLEX PANEL Lab Routine Supervision of high risk in second trimester (HCC) 24 weeks gestation of (HCC) Obesity affecting in second trimester, unspecified obesity type (HCC) Expected: 03/28/2025 (Approximate), Expires: 06/27/2025 [facility] Comment on above: Expected: 03/28/2025 (Approximate), Expi res: 06/27/2025 Start: 03-28-2025 End: 02-25-2026 GESTATIONAL GLUCOSE SCREEN, 1-HOUR, 50 GRAM, NON-FASTING GESTATIONAL GLUCOSE SCREEN, 1-HOUR, 50 GRAM, NON-FASTING Lab Routine Supervision of high risk in second trimester (HCC) 24 weeks gestation of (HCC) Screening for diabetes mellitus Obesity affecting in second trimester, unspecified obesity type (HCC) Expected: 03/28/2025 (Approximate), Expires: 02/25/2026 [facility] Work Phone: Comment on above: Expected: 03/28/2025 (Approximate), Expi res: 02/25/2026 Start: 03-28-2025 End: 02-25-2026 SYPHILIS TREPONEMAL W/REFLEX SYPHILIS TREPONEMAL W/REFLEX Lab Routine Supervision of high risk in second trimester (HCC) 24 weeks gestation of (HCC) Obesity affecting in second trimester, unspecified obesity type (HCC) Expected: 03/28/2025 (Approximate), Expires: 02/25/2026 [facility] Comment on above: Expected: 03/28/2025 (Approximate), Expi res: 02/25/2026 Start: 03-27-2025 End: 03-27-2025 ambulatory 03/27/2025 10:45 AM EDT Results Only [facility] [address] [place] [address] Dx: Elevated glucose [R73.09] [facility] Comment on above: Dx: Elevated glucose [R73.09] Start: 03-26-2025 End: 06-25-2025 GEST GLUC BLANK, 3-HR, 100 GM, FASTING GEST GLUC BLANK, 3-HR, 100 GM, FASTING Lab Routine Elevated glucose Expected: 03/26/2025, Expires: 06/25/2025 [facility] Work Phone: Comment on above: Expected: 03/26/2025, Expires: Start: 03-25-2025 End: 03-25-2025 Patient encounter procedure 03/25/2025 8:30 AM EDT Routine Office Visit OB/Gynecology [address] [place] [address] Merry White MD [address] [place] [address] OB OB/Gynecology Comment on above: OB Start: 03-18-2025 End: 06-17-2025 CBC W Auto Differential panel - Blood COMPLETE BLOOD COUNT AND DIFFERENTIAL Lab Routine 27 weeks gestation of (HCC) Dizziness Expected: 03/18/2025, Expires: 06/17/2025 [facility] Comment on above: Expected: 03/18/2025, Expires: Start: 03-18-2025 End: 06-17-2025 Comprehensive metabolic 2000 panel - Serum or Plasma COMPREHENSIVE METABOLIC PANEL Lab Routine 27 weeks gestation of (HCC) Dizziness Expected: 03/18/2025, Expires: 06/17/2025 [facility] Work Phone: Comment on above: Expected: 03/18/2025, Expires: Start: 03-18-2025 End: 06-17-2025 Protein/Creatinine [Mass Ratio] in Urine PROTEIN / CREATININE RATIO Lab Routine 27 weeks gestation of (HCC) Dizziness Expected: 03/18/2025, Expires: 06/17/2025 [facility] Comment on above: Expected: 03/18/2025, Expires: Start: 03-18-2025 End: 06-17-2025 Urate [Mass/volume] in Serum or Plasma URIC ACID Lab Routine 27 weeks gestation of (HCC) Dizziness Expected: 03/18/2025, Expires: 06/17/2025 [facility] Comment on above: Expected: 03/18/2025, Expires: Start: 02-25-2025 End: 02-25-2026 OBSTETRIC ULTRASOUND WHI OBSTETRIC ULTRASOUND WHI Anc Imaging Routine Supervision of high risk in second trimester (HCC) 24 weeks gestation of (HCC) Obesity affecting in second trimester, unspecified obesity type (HCC) Expected: 02/25/2025, Expires: 02/25/2026 [facility] Comment on above: Expected: 02/25/2025, Expires: Start: 02-25-2025 End: 02-25-2025 Patient encounter procedure 02/25/2025 8:45 AM EDT Routine Office Visit OB/Gynecology [address] [place] [address] Marlene Jimenez APRN.[employer] [address] [place] [address] OB OB/Gynecology Comment on above: OB Start: 01-28-2025 End: 01-28-2025 Patient encounter procedure Maternal Medicine Comment on above: Anatomy Scan OB Routine Start: 12-31-2024 End: 12-31-2024 Patient encounter procedure 12/31/2024 8:30 AM EDT Routine Office Visit OB/Gynecology [address] [place] [address] Merry White MD [address] [place] [address] OB Routine OB/Gynecology Comment on above: OB Routine Start: 12-11-2024 End: 12-11-2024 Patient encounter procedure 12/11/2024 11:00 AM EDT Office Visit OB/Gynecology [address] [place] [address] Leona Enriquez APRN.[employer] [address] [place] [address] WT MGMT F/up OB/Gynecology Comment on above: WT MGMT F/up Start: 12-03-2024 End: 12-03-2024 Patient encounter procedure Maternal Medicine Comment on above: Nuchal OB Routine Start: 11-28-2024 End: 11-28-2024 Patient encounter procedure 11/28/2024 9:30 AM [place] [address] [address] [address] Laquita Chinchilla, [facility] [address] [place] [phone] virtual consult Genetic [facility] Comment on above: virtual consult Start: 11-03-2024 End: 02-02-2025 Chromosome 21 trisomy [Presence] in Blood or Tissue by Cytogenetics [id number] PLUS Lab Routine Encounter for supervision of high risk in first trimester, antepartum Expected: 11/03/2024, Expires: 02/02/2025 [facility] Work Phone: Comment on above: Expected: 11/03/2024, Expires: Start: 10-31-2024 End: 01-30-2025 ANEMIA REFLEX PANEL ANEMIA REFLEX PANEL Lab Routine Encounter for supervision of high risk in first trimester, antepartum Expected: 10/31/2024, Expires: 01/30/2025 [facility] Comment on above: Expected: 10/31/2024, Expires: Start: 10-31-2024 End: 01-30-2025 CARRIER SCREEN, STANDARD CARRIER SCREEN, STANDARD Lab Routine Encounter for supervision of high risk in first trimester, antepartum 7 weeks gestation of Expected: 10/31/2024, Expires: 01/30/2025 [facility] Comment on above: Expected: 10/31/2024, Expires: Start: 10-31-2024 End: 01-30-2025 Hemoglobin A1c in Blood HEMOGLOBIN A1C Lab Routine Encounter for supervision of high risk in first trimester, antepartum Expected: 10/31/2024, Expires: 01/30/2025 [facility] Comment on above: Expected: 10/31/2024, Expires: Start: 10-31-2024 End: 01-30-2025 Hepatitis B virus surface Ag [Presence] in Serum HEPATITIS B SURFACE ANTIGEN Lab Routine Encounter for supervision of high risk in first trimester, antepartum Expected: 10/31/2024, Expires: 01/30/2025 [facility] Comment on above: Expected: 10/31/2024, Expires: Start: 10-31-2024 End: 01-30-2025 Hepatitis C virus Ab [Presence] in Serum HEPATITIS C ANTIBODY IA WITH CONFIRMATION Lab Routine Encounter for supervision of high risk in first trimester, antepartum Expected: 10/31/2024, Expires: 01/30/2025 [facility] Comment on above: Expected: 10/31/2024, Expires: Start: 10-31-2024 End: 01-30-2025 HIV 1+2 Ab [Presence] in Serum or Plasma by Immunoassay HIV 1/2 COMBO WITH REFLEX TO DIFFERENTIATION Lab Routine Encounter for supervision of high risk in first trimester, antepartum Expected: 10/31/2024, Expires: 01/30/2025 [facility] Comment on above: Expected: 10/31/2024, Expires: Start: 10-31-2024 End: 10-31-2025 OBSTETRIC ULTRASOUND WHI OBSTETRIC ULTRASOUND WHI Anc Imaging Routine Encounter for supervision of high risk in first trimester, antepartum Expected: 10/31/2024, Expires: 10/31/2025 [facility] Comment on above: Expected: 10/31/2024, Expires: Start: 10-31-2024 End: 01-30-2025 RUBELLA IGG ANTIBODY RUBELLA IGG ANTIBODY Lab Routine Encounter for supervision of high risk in first trimester, antepartum Expected: 10/31/2024, Expires: 01/30/2025 [facility] Comment on above: Expected: 10/31/2024, Expires: Start: 10-31-2024 End: 01-30-2025 SYPHILIS TREPONEMAL W/REFLEX SYPHILIS TREPONEMAL W/REFLEX Lab Routine Encounter for supervision of high risk in first trimester, antepartum Expected: 10/31/2024, Expires: 01/30/2025 [facility] Comment on above: Expected: 10/31/2024, Expires: Start: 10-31-2024 End: 01-30-2025 TYPE + SCREEN TYPE + SCREEN Blood Bank Routine Encounter for supervision of high risk in first trimester, antepartum Expected: 10/31/2024, Expires: 01/30/2025 [facility] Comment on above: Expected: 10/31/2024, Expires: Start: 10-31-2024 End: 10-31-2024 Patient encounter procedure 10/31/2024 11:00 AM EST Initial Office Visit OB/Gynecology [address] [address] Marlene Jimenez APRN.[employer] [address] [place] [address] New OB LMP 09/07 OB/Gynecology Comment on above: New OB LMP 09/07 Start: 10-24-2024 End: 10-24-2024 Patient encounter procedure OB/Gynecology Comment on above: Dating New OB LMP 09/07 Start: 10-16-2024 End: 10-16-2024 Patient encounter procedure 10/16/2024 11:45 AM EST Office Visit OB/Gynecology [address] [place] [address] Marlene Jimenez APRN.[employer] [address] [place] [address] early OB u/s OB/Gynecology Comment on above: early OB u/s Start: 10-13-2024 End: 10-13-2024 Patient encounter procedure 10/13/2024 9:20 AM EST Office Visit OB/Gynecology [address] [place] [address] Araceli Medrano MD [address] [place] [address] Fertility OB/Gynecology Comment on above: Fertility Start: 10-07-2024 End: 10-07-2025 OBSTETRIC ULTRASOUND WHI OBSTETRIC ULTRASOUND WHI Anc Imaging Routine Hx of ectopic Expected: 10/07/2024, Expires: 10/07/2025 [facility] Work Phone: Comment on above: Expected: 10/07/2024, Expires: Start: 09-18-2024 End: 09-18-2024 Nursing evaluation of patient and report 09/18/2024 10:00 AM EST Nurse Visit OB/Gynecology [address] [place] [address] [facility], Nurse [employer] Manager [facility] [address] [place] [address] Phentermine f/up OB/Gynecology Comment on above: Phentermine f/up Start: 06-19-2024 End: 06-19-2024 Patient encounter procedure 06/19/2024 9:30 AM EDT Office Visit OB/Gynecology [address] [place] [address] Leona Enriquez, TRANSFORMER [employer] [address] [place] [address] wt mgmt f/u OB/Gynecology Comment on above: wt mgmt f/u Start: 06-01-2024 Covid-19 Vaccine () Covid-19 Vaccine () [facility] Start: 06-01-2024 Influenza vaccination [facility] Start: 05-07-2024 End: 05-07-2024 Patient encounter procedure 05/07/2024 11:00 AM EDT Office Visit OB/Gynecology [address] [place] [address] Leona Enriquez, [employer] [address] [place] [address] wt mgmt f/u OB/Gynecology Comment on above: wt mgmt f/u Start: 04-28-2024 End: 04-28-2024 Patient encounter procedure 04/28/2024 10:20 AM EDT Routine Office Visit OB/Gynecology [address] [place] [address] Araceli Medrano MD [address] [place] [address] ob OB/Gynecology Comment on above: ob Start: 04-10-2024 End: 04-10-2024 Patient encounter procedure 04/10/2024 10:20 AM EDT Routine Office Visit OB/Gynecology [address] [place] [address] Araceli Medrano MD [address] [place] [address] ob OB/Gynecology Comment on above: ob Start: 04-02-2024 End: 04-02-2024 Patient encounter procedure 04/02/2024 10:00 AM EDT Office Visit OB/Gynecology [address] [place] [address] Zahra Muniz MD [address] [place] [address] Methotrexate OB/Gynecology Comment on above: Methotrexate Start: 04-01-2024 End: 07-01-2024 Alanine aminotransferase [Enzymatic activity/volume] in Serum or Plasma ALANINE AMINOTRANSFERASE / SGPT Lab Routine Ectopic , unspecified location, unspecified whether intrauterine present Expected: 04/01/2024, Expires: 07/01/2024 [facility] Comment on above: Expected: 04/01/2024, Expires: Start: 04-01-2024 End: 07-01-2024 Aspartate aminotransferase [Enzymatic activity/volume] in Serum or Plasma ASPARTATE AMINOTRANSFERASE/SGOT Lab Routine Ectopic , unspecified location, unspecified whether intrauterine present Expected: 04/01/2024, Expires: 07/01/2024 [facility] Comment on above: Expected: 04/01/2024, Expires: Start: 04-01-2024 End: 07-01-2024 CBC panel - Blood by Automated count COMPLETE BLOOD COUNT Lab Routine Ectopic , unspecified location, unspecified whether intrauterine present Expected: 04/01/2024, Expires: 07/01/2024 [facility] Work Phone: Comment on above: Expected: 04/01/2024, Expires: Start: 04-01-2024 End: 07-01-2024 CREATININE BLD CREATININE BLD Lab Routine Ectopic , unspecified location, unspecified whether intrauterine present Expected: 04/01/2024, Expires: 07/01/2024 [facility] Comment on above: Expected: 04/01/2024, Expires: Start: 04-01-2024 End: 04-01-2024 Patient encounter procedure 04/01/2024 10:30 AM EDT Office Visit OB/Gynecology [address] [place] [address] George Vieira MD [address] [place] [address] Discuss Plan, possible missed AB OB/Gynecology Comment on above: Discuss Plan, possible missed AB Start: 03-31-2024 End: 03-31-2024 Patient encounter procedure 03/31/2024 9:30 AM EDT Initial Office Visit OB/Gynecology [address] [place] [address] Marlene Jimenez APRN.[employer] [address] [place] [address] OB LMP 02/05/24 OB/Gynecology Comment on above: OB LMP 02/05/24 Start: 03-18-2024 End: 03-18-2024 Patient encounter procedure 03/18/2024 2:00 PM EDT Office Visit OB/Gynecology [address] [place] [address] Zahra Muniz MD [address] [place] [address] Bleeding in Early OB/Gynecology Comment on above: Bleeding in Early Start: 03-12-2024 End: 03-12-2024 Patient encounter procedure 03/12/2024 1:00 PM EDT Initial Office Visit OB/Gynecology [address] [place] [address] Nicolette Bobo APRN.CNM [address] [place] [address] OB LMP 02/05/24 OB/Gynecology Comment on above: OB LMP 02/05/24 Start: 12-15-2023 PAP TESTING PAP TESTING [facility] Start: 12-15-2023 Screening for malignant neoplasm of cervix [facility] Start: 10-01-2023 Behavioral Health Screening Behavioral Health Screening [facility] Start: 10-01-2023 Depression Assessment Depression Assessment [facility] Start: 07-11-2023 End: 09-10-2023 25-hydroxyvitamin D3 [Mass/volume] in Serum or Plasma VITAMIN D 25 HYDROXY Lab Routine Encounter for vitamin deficiency screening Malaise and fatigue Class 2 obesity with body mass index (BMI) of 39.0 to 39.9 in adult, unspecified obesity type, unspecified whether serious comorbidity present Expected: 07/11/2023, Expires: 09/10/2023 [facility] Work Phone: Comment on above: Expected: 07/11/2023, Expires: 3 Start: 07-11-2023 End: 09-10-2023 CBC panel - Blood by Automated count CBC Lab Routine Screening for deficiency anemia Class 2 obesity with body mass index (BMI) of 39.0 to 39.9 in adult, unspecified obesity type, unspecified whether serious comorbidity present Expected: 07/11/2023, Expires: 09/10/2023 [facility] Work Phone: Comment on above: Expected: 07/11/2023, Expires: 3 Start: 07-11-2023 End: 09-10-2023 Cobalamin (Vitamin B12) [Mass/volume] in Serum or Plasma VITAMIN B12 BLOOD Lab Routine History of non anemic vitamin B12 deficiency Expected: 07/11/2023, Expires: 09/10/2023 [facility] Work Phone: Comment on above: Expected: 07/11/2023, Expires: 3 Start: 07-11-2023 End: 09-10-2023 Comprehensive metabolic 2000 panel - Serum or Plasma COMP METABOLIC PANEL Lab Routine Screening for deficiency anemia Class 2 obesity with body mass index (BMI) of 39.0 to 39.9 in adult, unspecified obesity type, unspecified whether serious comorbidity present Expected: 07/11/2023, Expires: 09/10/2023 [facility] Work Phone: Comment on above: Expected: 07/11/2023, Expires: 3 Start: 07-11-2023 End: 09-10-2023 Hemoglobin A1c in Blood HGB A1C Lab Routine Screening for diabetes mellitus PCOS (polycystic ovarian syndrome) Class 2 obesity with body mass index (BMI) of 39.0 to 39.9 in adult, unspecified obesity type, unspecified whether serious comorbidity present Expected: 07/11/2023, Expires: 09/10/2023 [facility] Work Phone: Comment on above: Expected: 07/11/2023, Expires: 3 Start: 07-11-2023 End: 09-10-2023 Insulin [Units/volume] in Serum or Plasma INSULIN ASSAY BLOOD Lab Routine Screening for diabetes mellitus PCOS (polycystic ovarian syndrome) Class 2 obesity with body mass index (BMI) of 39.0 to 39.9 in adult, unspecified obesity type, unspecified whether serious comorbidity present Expected: 07/11/2023, Expires: 09/10/2023 [facility] Work Phone: Comment on above: Expected: 07/11/2023, Expires: 3 Start: 06-01-2023 Covid-19 Vaccine ( season) Covid-19 Vaccine ( season) [facility] Start: 06-01-2023 Influenza vaccination [facility] Start: 10-01-2022 DEPRESSION ASSESSMENT DEPRESSION ASSESSMENT [facility] Start: 06-01-2022 Influenza [facility] Start: 02-01-2022 End: 04-03-2022 17-Hydroxyprogesterone [Mass/volume] in Serum or Plasma HYDROXYPROGESTERO-17 Lab Routine DUB (dysfunctional uterine bleeding) Irregular periods Class 3 severe obesity with body mass index (BMI) of 40.0 to 44.9 in adult, unspecified obesity type, unspecified whether serious comorbidity present (HCC) Expected: 02/01/2022, Expires: 04/03/2022 [facility] Work Phone: Comment on above: Expected: 02/01/2022, Expires: 2 Start: 02-01-2022 End: 04-03-2022 DHEA-S BLD DHEA-S BLD Lab Routine DUB (dysfunctional uterine bleeding) Irregular periods Class 3 severe obesity with body mass index (BMI) of 40.0 to 44.9 in adult, unspecified obesity type, unspecified whether serious comorbidity present (HCC) Expected: 02/01/2022, Expires: 04/03/2022 [facility] Work Phone: Comment on above: Expected: 02/01/2022, Expires: 2 Start: 02-01-2022 End: 04-03-2022 Estradiol (E2) [Mass/volume] in Serum or Plasma ESTRADIOL-17B BLD Lab Routine DUB (dysfunctional uterine bleeding) Irregular periods Class 3 severe obesity with body mass index (BMI) of 40.0 to 44.9 in adult, unspecified obesity type, unspecified whether serious comorbidity present (HCC) Expected: 02/01/2022, Expires: 04/03/2022 [facility] Work Phone: Comment on above: Expected: 02/01/2022, Expires: 2 Start: 02-01-2022 End: 04-03-2022 Fasting glucose [Mass/volume] in Serum or Plasma GLUCOSE FASTING BLD Lab Routine DUB (dysfunctional uterine bleeding) Irregular periods Class 3 severe obesity with body mass index (BMI) of 40.0 to 44.9 in adult, unspecified obesity type, unspecified whether serious comorbidity present (HCC) Expected: 02/01/2022, Expires: 04/03/2022 [facility] Work Phone: Comment on above: Expected: 02/01/2022, Expires: 2 Start: 02-01-2022 End: 04-03-2022 Follitropin [Units/volume] in Serum or Plasma FSH BLD Lab Routine DUB (dysfunctional uterine bleeding) Irregular periods Class 3 severe obesity with body mass index (BMI) of 40.0 to 44.9 in adult, unspecified obesity type, unspecified whether serious comorbidity present (HCC) Expected: 02/01/2022, Expires: 04/03/2022 [facility] Work Phone: Comment on above: Expected: 02/01/2022, Expires: 2 Start: 02-01-2022 End: 04-03-2022 Hemoglobin A1c/Hemoglobin.total in Blood HGB A1C Lab Routine DUB (dysfunctional uterine bleeding) Irregular periods Class 3 severe obesity with body mass index (BMI) of 40.0 to 44.9 in adult, unspecified obesity type, unspecified whether serious comorbidity present (HCC) Expected: 02/01/2022, Expires: 04/03/2022 [facility] Work Phone: Comment on above: Expected: 02/01/2022, Expires: 2 Start: 02-01-2022 End: 04-03-2022 LIPID PANEL BASIC LIPID PANEL BASIC Lab Routine DUB (dysfunctional uterine bleeding) Irregular periods Class 3 severe obesity with body mass index (BMI) of 40.0 to 44.9 in adult, unspecified obesity type, unspecified whether serious comorbidity present (HCC) Expected: 02/01/2022, Expires: 04/03/2022 [facility] Work Phone: Comment on above: Expected: 02/01/2022, Expires: 2 Start: 02-01-2022 End: 04-03-2022 Lutropin [Units/volume] in Serum or Plasma LUTEINIZING HORMONE Lab Routine DUB (dysfunctional uterine bleeding) Irregular periods Class 3 severe obesity with body mass index (BMI) of 40.0 to 44.9 in adult, unspecified obesity type, unspecified whether serious comorbidity present (HCC) Expected: 02/01/2022, Expires: 04/03/2022 [facility] Work Phone: Comment on above: Expected: 02/01/2022, Expires: 2 Start: 02-01-2022 End: 04-03-2022 PROGESTERONE BLD PROGESTERONE BLD Lab Routine DUB (dysfunctional uterine bleeding) Irregular periods Class 3 severe obesity with body mass index (BMI) of 40.0 to 44.9 in adult, unspecified obesity type, unspecified whether serious comorbidity present (HCC) Expected: 02/01/2022, Expires: 04/03/2022 [facility] Work Phone: Comment on above: Expected: 02/01/2022, Expires: 2 Start: 02-01-2022 End: 04-03-2022 Prolactin [Mass/volume] in Serum or Plasma PROLACTIN BLD Lab Routine DUB (dysfunctional uterine bleeding) Irregular periods Class 3 severe obesity with body mass index (BMI) of 40.0 to 44.9 in adult, unspecified obesity type, unspecified whether serious comorbidity present (HCC) Expected: 02/01/2022, Expires: 04/03/2022 [facility] Work Phone: Comment on above: Expected: 02/01/2022, Expires: 2 Start: 02-01-2022 End: 04-03-2022 Testosterone [Mass/volume] in Serum or Plasma TESTOSTERONE TOTAL Lab Routine DUB (dysfunctional uterine bleeding) Irregular periods Class 3 severe obesity with body mass index (BMI) of 40.0 to 44.9 in adult, unspecified obesity type, unspecified whether serious comorbidity present (HCC) Expected: 02/01/2022, Expires: 04/03/2022 [facility] Work Phone: Comment on above: Expected: 02/01/2022, Expires: 2 Start: 02-01-2022 End: 04-03-2022 Thyrotropin [Units/volume] in Serum or Plasma TSH BLD Lab Routine DUB (dysfunctional uterine bleeding) Irregular periods Class 3 severe obesity with body mass index (BMI) of 40.0 to 44.9 in adult, unspecified obesity type, unspecified whether serious comorbidity present (HCC) Expected: 02/01/2022, Expires: 04/03/2022 [facility] Work Phone: Comment on above: Expected: 02/01/2022, Expires: 2 Start: 12-14-2021 Screening for malignant neoplasm of cervix Cervical Cancer Screening [facility] Start: 10-13-2021 DTaP/Tdap/Td Vaccines (7 - Td or Tdap) DTaP/Tdap/Td Vaccines (7 - Td or Tdap) [facility] Start: 10-13-2021 Urine microalbumin profile DTaP,Tdap,Td Vaccine (7 - Td or Tdap) [facility] Start: 08-23-2021 Patient encounter procedure Aileen Sanon Start: 2016 Screening for malignant neoplasm of cervix [facility] Start: 2014 Pneumococcal vaccination Pneumococcal Vaccine (1 of 2 - PCV) [facility] Start: 2014 Shingrix Vaccine (1 of 2) Shingrix Vaccine (1 of 2) [facility] Start: 2014 Urine microalbumin profile [facility] Start: 2013 Anxiety Screening Anxiety Screening [facility] Start: 2013 Depression Screening Depression Screening [facility] Start: 2013 HEPATITIS C SCREENING HEPATITIS C SCREENING [facility] Start: 2013 Hepatitis C screening Hepatitis C Screening [facility] Start: 2013 HIV SCREENING HIV SCREENING [facility] Start: 2013 HIV screening HIV Screening [facility] Start: 2009 PEDS TO ADULT TRANSITION ANNUAL ASSESSMENT PEDS TO ADULT TRANSITION ANNUAL ASSESSMENT [facility] Start: 2008 Varicella vaccination Varicella Vaccines (1 of 2 - 13+ 2-dose series) [facility] Start: 2007 Adult depression screening assessment DEPRESSION SCREENING [facility] Start: 2007 PEDS TO ADULT TRANSITION INITIAL DISCUSSION PEDS TO ADULT TRANSITION INITIAL DISCUSSION [facility] Start: 2006 HPV VACCINE (1 - 2-dose series) HPV VACCINE (1 - 2-dose series) [facility] Start: 2001 PNEUMOCOCCAL (1 - PCV) PNEUMOCOCCAL (1 - PCV) [facility] Start: 2001 Pneumococcal vaccination [facility] Start: 2000 COVID-19 VACCINE (#1) COVID-19 VACCINE (#1) [facility] Start: 2000 COVID-19 VACCINE (1) COVID-19 VACCINE (1) [facility] Start: 04-05-1996 COVID-19 VACCINE (#1) COVID-19 VACCINE (#1) [facility] Start: 1995 HEPATITIS B (1 of 3 - 3-dose series) HEPATITIS B (1 of 3 - 3-dose series) [facility] Start: 1995 Hepatitis B Vaccine (1 of 3 - 3-dose series) Hepatitis B Vaccine (1 of 3 - 3-dose series) [facility] Start: 1995 HIV screening HIV Screening [facility] Start: 1995 Lipid panel Lipid Panel [facility] Start: 1995 Yearly Adult Physical Yearly Adult Physical [facility] End: 03-28-2024 Bacteria identified in Urine by Culture Urine culture Microbiology Add-On STAT (Lab) for 1 Occurrences starting 03/28/2024 until 03/28/2024 [facility] Work Phone: Comment on above: STAT (Lab) for 1 Occurrences starting until 03/28/2024 Bacteria identified in Urine by Culture BACTERIAL CULTURE, URINE Microbiology Routine Encounter for supervision of high risk in first trimester, antepartum 10/31/2024 11:35 AM [facility] Bacteria identified in Urine by Culture [...] antepartum ([facility]) Ordered: 04/27/2025 [facility] Work Phone: Comment on above: Ordered: 04/27/2025 Chlamydia trachomatis+Neisseria gonorrhoeae DNA [Presence] in Unspecified specimen by EDUARDO with probe detection GONORRHEA/CHLAMYDIA NAAT Lab Routine Encounter for supervision of high risk in first trimester, antepartum Screen for STD (sexually transmitted disease) 10/31/2024 11:35 AM EST [facility] End: 03-18-2025 Choriogonadotropin.beta subunit [Units/volume] in Serum or Plasma HCG QUANTITATIVE Lab Routine Missed menses 2x per week for 4 Occurrences starting 03/18/2024 until 03/18/2025 [facility] Work Phone: Comment on above: 2x per week for 4 Occurrences starting 0 03/18/2024 until 03/18/2025 Choriogonadotropin.b eta subunit [Units/volume] in Serum or Plasma HCG QUANTITATIVE Lab Routine Missed menses 03/18/2024 3:00 PM EDT [facility] End: 04-02-2025 Choriogonadotropin.beta subunit [Units/volume] in Serum or Plasma HCG QUANTITATIVE Lab STAT Ectopic without intrauterine , unspecified location 3x per week for 3 Occurrences starting 04/02/2024 until 04/02/2025, 1 completed [facility] Work Phone: Comment on above: 3x per week for 3 Occurrences starting 0 04/02/2024 until 04/02/2025, 1 completed End: 10-15-2025 Choriogonadotropin.beta subunit [Units/volume] in Serum or Plasma HCG QUANTITATIVE Lab Routine Spotting in early 2x per week for 2 Occurrences starting 10/15/2024 until 10/15/2025 [facility] Work Phone: Comment on above: 2x per week for 2 Occurrences starting 0 10/15/2024 until 10/15/2025 End: 03-28-2024 ECG 12 Lead [facility] [place] [facility] Work Phone: Comment on above: Once for 1 Occurrences starting 03/28/20 until 03/28/2024 End: 03-28-2024 Extra Urine Griggs Tube Extra Urine Griggs Tube Lab Timed Once for 1 Occurrences starting 03/28/2024 until 03/28/2024 [facility] Work Phone: Comment on above: Once for 1 Occurrences starting 03/28/20 24 until 03/28/2024 End: 06-14-2025 nonstress test NON-STRESS TEST Procedures Routine Gestational diabetes mellitus (GDM) requiring insulin (HCC) Once per week for 10 Occurrences starting 04/21/2025 until 06/14/2025 [facility] Work Phone: Comment on above: Once per [...] for 2 Occurrences starting 03/25/2025 until 08/12/2025 [facility] Work Phone: Comment on above: Once per month for 2 Occurrences startin g 03/25/2025 until 08/12/2025 PAP TEST PAP TEST Lab Heladio natalie Encounter for supervision of high risk in first trimester, antepartum Screening for cervical cancer 10/31/2024 11:35 AM [facility] Patient Education Kick Counts ED False Labor OB Triage: Return to Hospital or Notify Physician if you Experience: [facility] Work Phone: PELVIC US WHI PELVIC US WHI An c Imaging Routine DUB (dysfunctional uterine bleeding) Irregular periods Class 3 severe obesity with body mass index (BMI) of 40.0 to 44.9 in adult, unspecified obesity type, unspecified whether serious comorbidity present (HCC) 1 Occurrences starting 02/01/2022 [facility] Work Phone: Comment on above: 1 Occurrences starting 02/01/2022 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 ULTRASO UND Anc Imaging Routine Encounter for supervision of high risk in first trimester, antepartum Ordered: 10/31/2024 [facility] Work Phone: Comment on above: Ordered: 10/31/2024 ROUTINE, GR OUP B STREPTOCOCCUS BY PCR ROUTINE, GROUP B STREPTOCOCCUS BY PCR Microbiology Routine 35 weeks gestation of (HCC) Gestational hypertension without significant proteinuria in third trimester (HCC) Supervision of high risk due to social problems, third trimester (HCC) Insulin controlled gestational diabetes mellitus (GDM) in third trimester (HCC) 05/12/2025 2:40 PM EDT [facility] Work Phone: TRICHOMONAS VAGINALI S NAAT TRICHOMONAS VAGINALIS NAAT Lab Routine Encounter for supervision of high risk in first trimester, antepartum Screen for STD (sexually transmitted disease) 10/31/2024 11:35 AM [facility] End: 03-28-2024 Urinalysis complete W Reflex Culture panel - Urine [facility] Work Phone: Comment on above: Once (Lab) for 1 Occurrences starting until 03/28/2024 End: 03-03-2023 Us transvaginal US FEMALE PELVIS TRANSVAG Radiology Routine DUB (dysfunctional uterine bleeding) Irregular periods Class 3 severe obesity with body mass index (BMI) of 40.0 to 44.9 in adult, unspecified obesity type, unspecified whether serious comorbidity present (HCC) 1 Occurrences starting 02/01/2022 until 03/03/2023 [facility] Work Phone: Comment on above: 1 Occurrences starting 02/01/2022 until 03/03/2023 [facility] Immunizations Immunization Date Immunization Notes Care Provider Fa roland 04-07-2025 tetanus toxoid, redu rosie diphtheria toxoid, and acellular pertussis vaccine, adsorbed Whi Mob [facility] 04-22-2012 human papilloma viru s vaccine, quadrivalent No PCP None [address] Work Phone: Comment on above: Series: 12-18-2011 human papilloma viru s vaccine, quadrivalent No PCP None [address] Work Phone: Comment on above: Series: 10-13-2011 human papilloma viru s vaccine, quadrivalent No PCP None [address] Work Phone: Comment on above: Series: 10-13-2011 tetanus toxoid, redu rosie diphtheria toxoid, and acellular pertussis vaccine, adsorbed No PCP None [address] Work Phone: Comment on above: Series: 03-25-2001 diphtheria, tetanus toxoids and acellular pertussis vaccine, unspecified formulation Merry White MD Work Phone: [facility] Work Phone: 03-25-2001 hepatitis B vaccine, pediatric or pediatric/adolescent dosage Merry White MD Work Phone: [facility] 12-31-2000 measles, mumps and rubella virus vaccine Merry White MD Work Phone: [facility] 12-31-2000 poliovirus vaccine, inactivated Merry White MD Work Phone: [facility] 01-20-1997 diphtheria, tetanus toxoids and pertussis vaccine Merry White MD Work Phone: [facility] 10-08-1996 measles, mumps and rubella virus vaccine Merry White MD Work Phone: [facility] 05-12-1996 diphtheria, tetanus toxoids and pertussis vaccine Merry White MD Work Phone: [facility] 05-12-1996 haemophilus influenz ae type b vaccine, conjugate unspecified formulation Merry White MD Work Phone: [facility] 05-12-1996 trivalent poliovirus vaccine, live, oral Merry White MD Work Phone: [facility] 03-26-1996 diphtheria, tetanus toxoids and pertussis vaccine Merry White MD Work Phone: [facility] 03-26-1996 haemophilus influenz ae type b vaccine, conjugate unspecified formulation Merry White MD Work Phone: [facility] 03-26-1996 trivalent poliovirus vaccine, live, oral Merry White MD Work Phone: [facility] 1995 diphtheria, tetanus toxoids and pertussis vaccine Merry White MD Work Phone: [facility] 1995 haemophilus influenz ae type b vaccine, conjugate unspecified formulation Merry White MD Work Phone: [facility] 1995 trivalent poliovirus vaccine, live, oral Merry White MD Work Phone: [facility] 1995 hepatitis B vaccine, pediatric or pediatric/adolescent dosage Merry White MD Work Phone: [facility] 1995 hepatitis B vaccine, pediatric or pediatric/adolescent dosage Merry White MD Work Phone: [facility] Payers Date Payer Category Payer Self-pay 2021 Private Health Insurance ANJALI PEREZ OA [id number] 2021-Present [phone] [facility] [id number] [place] [address] Open Access [id number] 2021 Private Health Insurance [id number] 2021 Private Health Insurance [id number] 1995 Unknown [id number] 1995 Unknown [id number] Unknown Unknown [id number] Unknown [id number] Unknown [id number] Social History Date Type Detail Facility [facility] Other Phone (unformatted): [phone] Tobacco smoking consumption unknown [facility] Other Phone (unformatted): [phone] Start: 03-02-2022 End: 07-11-2023 Minimum alcohol consumption Minimum alcohol consumption [address] Work Phone: Comment on above: she smokes hookah, n ot cigarettes; Start: 11-29-2017 End: 07-11-2023 Tobacco smoking status NHIS Smokes tobacco daily [facility] Start: 11-29-2017 End: 10-31-2024 Tobacco use and exposure Smokeless tobacco non-user [facility] Start: 02-01-2022 End: 06-19-2024 Alcohol intake Current drinker of alcohol (finding) [facility] Start: 02-01-2022 History SDOH Alcohol Comment occasional [facility] Start: 1995 Sex Assigned At Not on file [facility] Start: 01-17-2022 End: 03-28-2024 Exposure to SARS-CoV-2 (event) Not sure [facility] Start: 1995 Sex Assigned At Female [facility] Start: 03-02-2022 End: 07-11-2023 Tobacco use panel [facility] Start: 01-09-2017 National Score (1-10 0), lower number is lower risk 66 [facility] Start: 02-23-2022 Gender identity Identifies as female gender (finding) [facility] Start: 02-23-2022 Sexual orientation Heterosexual (fin jair) [facility] History of tobacco use Pipe Smoker [facility] Work Phone: Start: 10-31-2024 Tobacco smoking stat us ILIS Ex-smoker [facility] End: 10-02-2024 History of tobacco use Current smoker [facility] End: 10-02-2024 History of tobacco use Cigarette Smoker [facility] Start: 10-31-2024 End: 05-19-2025 Alcoholic beverage intake Ex-drinker (finding) [facility] Start: 10-30-2024 Education 13 [facility] Start: 09-21-2024 [facility] Medical Equipment Procedure Code Equipment Code Equipment Origin al Text Equipment Identifier Dates Use as directed to check glucose levels up to seven times daily. [id number] Start: 03-27-2025 Use as directed to check glucose levels up to seven times daily. [id number] Start: 03-27-2025 1 each two times a day. [id number] Start: 04-23-2025 Goals Date Patient Goal Desired Activity /State Personal health goal Clinical Notes 02-01-2022 to 05-22-2025 Nicolette Bobo APRN.CNM - 05/22/2025 10:01 AM EDTPrenatal Quick Notes - Nicolette Bobo APRN.CNM - 05/22/2025 9:59 AM EDTPrenatal Quick Notes - Nicolette Bobo APRN.CNM - 05/22/2025 9:59 AM EDT Note Date & Type Note Facility 05-22-2025 Note HNO ID: [id number] Author: NICOLETTE BOBO APRN.CNM Service: ? Author Type: Clerk Typist Type: Progress Notes Filed: 05/22/2025 10:38 Note [...] Reactive SIGNATURE: Nicolette Bobo APRN.CNM [facility] 05-22-2025 History of Present illness Narrative NST [...] Nicolette Bobo APRN.CNM documented in this encounter [facility] 05-22-2025 Progress note Formatting of t his note might be different from the original. Patient here for NST only. NST reactive. Cat. 1 tracing. No contractions noted. Patient scheduled for induction of labor on 05/24/25 at 7 pm. Nicolette Bobo APRN.CNM [facility] 05-22-2025 Miscellaneous Notes Patient here for NST only. NST reactive. Cat. 1 tracing. No contractions noted. Patient scheduled for induction of labor on 05/24/25 at 7 pm. Nicolette Bobo APRN.CNM documented in this encounter [facility] 05-22-2025 Instructions Lima Anderson MA - 05/22/2025 9:28 AM EDT SEQUENTIAL SCREENINGS The [facility] offers sequential screenings for women who are [...] It will require an appointment with our industrial machine system technician. This is not an ultrasound performed [...] the above symptoms, contact our office at [phone] and ask to speak with a nurse. After hours, you can call doctors registry at [phone] OR call [facility] at [phone] and ask to have the doctor finance and administration manager paged. If you consider this an emergency, dial 9-1-8 or go to your nearest emergency department. NEED HELP? Are you dealing with a violent or abusive relationship? Are you a victim of rape or sexual assult? Call [facility] ([facility] 24 hour Crisis Hotline: 534.387.3768 or 015-337-1476. MANUAL Your Guide to a Healthy manual is now on-line. Visit [email or web address] ncyGuide to download your free copy documented in this encounter [facility] 05-19-2025 Note Indication Evaluation of well-being. Maternal [...] PTL & FM precautions George Vieira MD [facility] 05-19-2025 Miscellaneous Notes KJ - S: Millie [...] George Vieira MD documented in this encounter [facility] 05-19-2025 Instructions Devika Peacock MA - 05/19/2025 9:30 AM EDT SEQUENTIAL SCREENINGS The [facility] offers sequential screenings for women who are [...] It will require an appointment with our industrial machine system technician. This is not an ultrasound performed [...] the above symptoms, contact our office at [phone] and ask to speak with a nurse. After hours, you can call doctors registry at [phone] OR call [facility] at [phone] and ask to have the doctor finance and administration manager paged. If you consider this an emergency, dial 9-1-0 or go to your nearest emergency department. NEED HELP? Are you dealing with a violent or abusive relationship? Are you a victim of rape or sexual assult? Call [facility] ([place]) 24 hour Crisis Hotline: 260.818.8037 or 014-138-1712. MANUAL Your Guide to a Healthy manual is now on-line. Visit [email or web address] ncyGuide to download your free copy documented in this encounter [facility] 05-15-2025 Note Indication Evaluation of growth Gestational [...] 0 oz EFW by: Hadlock (HC-AC-FL) Extended Electric Plater 8.6 mm Extremities / Bony Struc FL [...] URINE OB DIP B/O Zahra Muniz MD [facility] 05-15-2025 Miscellaneous Notes S: Millie Watkins is [...] Zahra Muniz MD documented in this encounter [facility] 05-15-2025 Instructions Lima Anderson MA - 05/15/2025 11:00 AM EDT SEQUENTIAL SCREENINGS The [facility] offers sequential screenings for women who are [...] It will require an appointment with our industrial machine system technician. This is not an ultrasound performed [...] the above symptoms, contact our office at [phone] and ask to speak with a nurse. After hours, you can call doctors registry at [phone] OR call [facility] at [phone] and ask to have the doctor finance and administration manager paged. If you consider this an emergency, dial 9-1-7 or go to your nearest emergency department. NEED HELP? Are you dealing with a violent or abusive relationship? Are you a victim of rape or sexual assult? Call [facility] ([facility] 24 hour Crisis Hotline: 554.140.4485 or 103-055-9431. MANUAL Your Guide to a Healthy manual is now on-line. Visit [email or web address] ncyGuide to download your free copy documented in this encounter [facility] 05-14-2025 Telephone encounter Note Patient called and notified. L&D notified. Updated H&P faxed. Zahra Baez RN [facility] 05-14-2025 Miscellaneous Notes Patient called and notified. [...] Zahra Baez RN documented in this encounter [facility] 05-14-2025 Telephone encounter Note I recommend L&D for complete evaluation. George Vieira MD [facility] 05-14-2025 Telephone encounter Note 35w4d Patient called [...] and not the hospital. Zahra Highman, RN [facility] 05-12-2025 Progress note Formatting of t his [...] FM & preE precautions George Vieira MD [facility] 05-12-2025 Miscellaneous Notes KJ - S: Millie denies [...] George Vieira MD documented in this encounter [facility] 05-12-2025 Note HNO ID: [id number] Author: GEORGE VIEIRA MD Service: ? Author [...] Reactive SIGNATURE: George Vieira MD [facility] 05-12-2025 History of Present illness Narrative NST [...] George Vieira MD documented in this encounter [facility] 05-12-2025 Instructions Devika Peacock MA - 05/12/2025 2:19 PM EDT SEQUENTIAL SCREENINGS The [facility] offers sequential screenings for women who are [...] It will require an appointment with our industrial machine system technician. This is not an ultrasound performed [...] the above symptoms, contact our office at [phone] and ask to speak with a nurse. After hours, you can call doctors registry at [phone] OR call [facility] at [phone] and ask to have the doctor finance and administration manager paged. If you consider this an emergency, dial 9-1-0 or go to your nearest emergency department. NEED HELP? Are you dealing with a violent or abusive relationship? Are you a victim of rape or sexual assult? Call [facility] ([facility] 24 hour Crisis Hotline: 477.669.5247 or 203-340-1880. MANUAL Your Guide to a Healthy manual is now on-line. Visit [email or web address] ncyGuide to download your free copy documented in this encounter [facility] 05-07-2025 Note [facility] Medical Records Department [address] [place] [address] History Physical Exam 05/07/25 1514 MR#: [id number] Acct: [id number] Name: MILLIE WATKINS Rep #: [id number] : 1995 29 From: Merry White MD PCP: Care Physician,No Primary Status:DEP CLI Location: [facility] History and Physical Date of [...] White MD; No Primary Care Physician Signed [facility] 05-07-2025 Note HNO ID: [id number] Author: MERRY WHITE MD Service: ? Author [...] Reactive SIGNATURE: Merry White MD [facility] 05-06-2025 History and physi zachery note [facility] 05-06-2025 Evaluation note Diagnosis Onset Date Resolution 34 weeks gestation of acute May 06, 2025 1:15pm Elevated blood pressure affecting , antepartum acute May 1:15pm GDM, class A2 acute May 06, 2025 1:15pm Headache acute May 06 1:15pm [facility] Work Phone: 1(532) 340-313908-06-2025 Evaluation note* Diagnosis Onset Date Resolution Status Admit Date 34 weeks gestation of acut e May 06, 2025 1:15pm Elevated blood pressure affecting , antepartum acute May 06, 2025 1:15pm GDM, class A2 acute May 06, 2025 1:15pm Headache acute May 06 1:15pm Previous delivery affecting acute May 06, 2025 1:15pm [facility] Work Phone: 1(325) 973-896407-28-2025 NoteHNO ID: [id number] Author: ZAHRA MUNIZ MD Service: ? Author Type: Physician Type: Progress Notes Filed: 04/27/2025 14:18 Note Text: NST SUMMARY PROVIDER ASSESSMENT AND INTERPRETATION Indications for NST: Diabetes - Insulin Controlled Baseline: 130 Variability: Moderate Accelerations: Present 15 X 15 Decelerations: None Interpretation: Reactive SIGNATURE: Zahra Muniz [facility]07-28-2025 History of Present illness Narrative* Zahra Muniz MD - 04/27/2025 2:17 PM EDT NST SUMMARY PROVIDER ASSESSMENT AND INTERPRETATION Indications for NST: Diabetes - Insulin Controlled Baseline: 130 Variability: Moderate Accelerations: Present 15 X 15 Decelerations: None Interpretation: Reactive SIGNATURE: Zahra Muniz MD [facility] Progress note* Quick Notes - Zahra Muniz [...] - BACTERIAL CULTURE, URINE Zahra Muniz MD [facility]07-28-2025 Miscellaneous Notes* Quick Notes - Zahra Muniz [...] URINE Zahra Muniz MD [facility] Instructions* Patient Instructions* Lima Anderson MA - 04/27/2025 1:36 PM EDT SEQUENTIAL SCREENINGS The [facility] offers sequential screenings for women who are [...] testing. It will require an appointment withour industrial machine system technician. This is not an ultrasound performed [...] the above symptoms, contact our office at [phone] and ask to speak with anurse. After hours, you can call doctors registry at [phone] OR call [facility] at [phone] ask to have the doctor finance and administration manager paged. If you consider this an emergency, dial or go to your nearest emergency department. NEED HELP? Are you dealing with a violent or abusive relationship? Are you a victim of rape or sexual assult? Call [facility] ([place]) 24 hour Crisis Hotline: 993.498.7614 or 618-827-9956. MANUAL Your Guide to a Healthy manual is now on-line. Visit [email or web address] to download your free copy [facility] Telephone encounter Note * Telephone Encounter - Zahra Muniz MD - 04/23/2025 11:47 AM EDT Order signed [facility]07-24-2025 Miscellaneous Notes* Telephone Encounter - Zahra Muniz MD - 04/23/2025 11:47 AM EDT Order signed documented [facility] Telephone encounter Note * Telephone Encounter - Efren Nino MA - 04/21/2025 4:17 PM EDT FMLA has been completed and signed. Efren Nino MA [address]22-2025 Miscellaneous Notes* Telephone Encounter - Efren Nino MA - 04/21/2025 4:17 PM EDT FMLA has been completed and signed. Efren Nino MA * Telephone Encounter - Efren Nino MA - 04/21/2025 10:53 AM EDT 04/21/2025- received FMLA and Short term disability. Working on completing forms Efren Nino MA documented [facility] Telephone encounter Note * Telephone Encounter - Efren Nino MA - 04/21/2025 10:53 AM EDT 04/21/2025- received FMLA and Short term disability. Working on completing forms Efren Nino MA [facility]07-22-2025 Progress note* Quick Notes - Zahra Muniz [...] TEST - NON-STRESS TEST Zahra Muniz MD [facility]07-22-2025 Miscellaneous Notes* Quick Notes - Zahra Muniz [...] TEST Zahra Muniz MD documented in this [facility] Telephone encounter Note * Telephone Encounter - Zahra Baez RN - 04/21/2025 10:07 AM EDT Forms printed and placed in [facility] mailbox. Zahra Baez RN [facility]07-22-2025 Miscellaneous Notes* Telephone Encounter - Zahra Baez RN - 04/21/2025 10:07 AM EDT Forms printed and placed in [facility] mailbox. Zahra Baez RN documented in this encounter[facility]-22-2025 Instructions* Patient Instructions* Efren Nino MA - 04/21/2025 9:49 AM EDT SEQUENTIAL SCREENINGS The [facility] offers sequential screenings for women who are [...] testing. It will require an appointment withour industrial machine system technician. This is not an ultrasound performed [...] the above symptoms, contact our office at [phone] and ask to speak with anurse. After hours, you can call doctors registry at [phone] OR call [facility] at [phone] ask to have the doctor finance and administration manager paged. If you consider this an emergency, dial 3-7-8 or go to your nearest emergency department. NEED HELP? Are you dealing with a violent or abusive relationship? Are you a victim of rape or sexual assult? Call [facility] ([place]) 24 hour Crisis Hotline: 136.801.5448 or 465-667-8733. MANUAL Your Guide to a Healthy manual is now on-line. Visit [email or web address] to download your free copy documented in [facility]25 Telephone encounter Note * Telephone Encounter - Minda Dela Cruz RN - 04/17/2025 9:10 AM EDT Please review patients blood sugar readings. Last seen 04/13, next appointment on 04/21. Minda Dela Cruz RN [facility]07-18-2025 Miscellaneous Notes* Telephone Encounter - Minda Dela Cruz RN - 04/17/2025 9:10 AM EDT Please review patients blood sugar readings. Last seen 04/13, next appointment on 04/21. Minda Dela Cruz RN * Telephone Encounter - Lali Aguiar RN - 04/16/2025 1:49 PM EDT 31w4d Next OB visit 04/21/25. Lali Aguiar RN documented in this encounterA[facility]-2025 Telephone encounter Note * Telephone Encounter - Lali Aguiar RN - 04/16/2025 1:49 PM EDT 31w4d Next OB visit 04/21/25. Lali Aguiar RN [facility]07-11-2025 Telephone encounter Note* Telephone Encounter - Zahra Baez RN - 04/10/2025 2:06 PM EDT Called and notified patient. Zahra Baez RN [facility]07-11-2025 Miscellaneous Notes* Telephone Encounter - Zahra Baez [...] review. Zahra Baez RN documented in this encounterA[facility]07-[facility]-2025 Telephone encounter Note * Telephone Encounter - Irene Mc APRN.CNM - 04/10/2025 1:15 PM EDT This is a normal result but will continue to monitor her. 0.25 or higher would be concerning duringpregnancy. [facility] Work Phone: 1(106) 397-107807-11-2025 Telephone encounter Note* Telephone Encounter - Zahra Baez RN - 04/10/2025 10:47 AM EDT 30w5d Patient viewed 24 hour urine results on Mychart. She would like to know what the results mean. Please review. Zahra Baez RN [facility]07-08-2025 Note Indication Evaluation of growth. Gestational diabetes [...] 15 oz EFW by: Hadlock (HC-AC-FL) Extended Electric Plater 5.3 mm Extremities / Bony Struc FL [...] Olivares RDMS Read By: Kendra Bryant M.D.MATERNAL [id number] NoteHNO ID: [id number] Author: PARKER WATERMAN MA Service: ? Author Type: Component Prep Operator Type: Progress Notes Filed: 04/12/2025 05:47 Note [...] severely ill: Yes Patient denies history of Guillain-Canby Syndrome (a severe paralytic illness): Yes Tdap Adacel injection was given without incident. See immunizations for details of immunizations administered today. VIS sheet provided: Yes Provider Irene Mc APRN CNM was present in office at time of injection. Parker Waterman [facility]07-08-2025 History of Present illness Narrative* Parker Waterman [...] severely ill: Yes Patient denies history of Guillain-Canby Syndrome (a severe paralytic illness): Yes Tdap Adacel injection was given without incident. See immunizations for details of immunizations administered today. VIS sheet provided: Yes Provider Irene Mc APRN CNM was present in office at time of injection. Parker Waterman MA documented in this encounterAden[facility]07-[facility]25 Progress note* Quick Notes - Irene Mc [...] Reviewed BG log to send weekly via CombineNet and bring to visits. -Growth US at 32 wk PTL precautions reviewed and when to call RTO in 2 weeks Irene Mc APRN.CNM [facility]07-08-2025 Miscellaneous Notes* Quick Notes - Irene Mc [...] Reviewed BG log to send weekly via CombineNet and bring to visits. -Growth US at 32 wk PTL precautions reviewed and when to call RTO in 2 weeks Irene Mc APRN.CNM documented in this encounterAdena Pike Medical Center07-08-2025 Instructions* Patient Instructions* Parker Waterman MA - 04/07/2025 3:47 PM EDT SEQUENTIAL SCREENINGS The [facility] offers sequential screenings for women who are [...] testing. It will require an appointment withour industrial machine system technician. This is not an ultrasound performed [...] the above symptoms, contact our office at [phone] and ask to speak with anurse. After hours, you can call doctors registry at [phone] OR call [facility] at [phone] ask to have the doctor finance and administration manager paged. If you consider this an emergency, dial 06-01- or go to your nearest emergency department. NEED HELP? Are you dealing with a violent or abusive relationship? Are you a victim of rape or sexual assult? Call [facility] ([place]) 24 hour Crisis Hotline: 631.972.8104 or 449-706-1013. MANUAL Your Guide to a Healthy manual is now on-line. Visit [email or web address]/[email or web address] to download your free copy documented in this encounterAdena Pike [facility] Center07-02-2025 Telephone encounter Note * Telephone Encounter - Nicolette Bobo APRN.CNM - 04/01/2025 10:21 AM EDT Thank you! Nicolette Bobo APRN.CNM [facility]07-02-2025 Miscellaneous Notes* Telephone Encounter - Nicolette Bobo APRN.CNM - 04/01/2025 10:21 AM EDT Thank you! Nicolette Bobo APRN.CNM * Telephone Encounter - Damien Khan RD - 03/31/2025 11:20 AM EDT Nicolette I moved Millie to my schedule on Sunday for the nutrition portion of her Diabetes education. The RD in [place] is not comfortable with and diabetes/GDM. I moved her to my schedule. In the future you can fax the referral to [phone], have the pt call our office and we can schedule them [phone], or send a staff message or CCd the chart to us to notify us of the consult. Thank you. Damien Khan MS RD LD [place] documented in this encounterAdena Pike Medical Center07-01-2025 Telephone encounter Note * Telephone Encounter - Damien Khan RD - 03/31/2025 11:20 AM EDT Nicolette I moved Millie to my schedule on Sunday for the nutrition portion of her Diabetes education. The RD in [place] is not comfortable with and diabetes/GDM. I moved her to my schedule. In the future you can fax the referral to [phone], have the pt call our office and we can schedule them [phone], or send a staff message or CCd the chart to us to notify us of the consult. Thank you. Damien Khan MS RD LD RE [facility] Work Phone: 1(628) 102-585707-01-2025 NoteHNO ID: [id number] Author: LIDIA PRITCHETT RN Service: ? Author Type: Registered Nurse Type: Progress Notes Filed: 03/31/2025 11:03 Note Text: DIABETES SELF-MANAGEMENT EDUCATION AND SUPPORT Location: [facility] Type of visit: Virtual (with video) individual -- I have communicated my name and active licensure. The patient's identity and physical location were verified at the time of this visit. 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 The patient's identity and physical location wereverified at the time of this visit. 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 Desdemona like she had a low one time [...] beef jerky, cheese balls or sticks, nuts, greenlandic yogurt with granola, dark chocolate. Likes fruit [...] TIME: 9:56 AM PAGER: documented in this encounterAdena Pike [facility] Center06-27-2025 Telephone encounter Note * Telephone Encounter - Minda Dela Cruz RN - 03/27/2025 3:58 PM EDT Patient notified of results, verbalizes understanding of instructions. Appointments scheduled. Minda Dela Cruz RN [facility]06-27-2025 Miscellaneous Notes* Telephone Encounter - Minda Dela [...] not included. Nicolette Bobo APRN.CNM [facility] Ob-Licensed Aircraft Maintenance Engineer Pool Please notify patient that 3 hour glucose tolerance test came back abnormal. Please order supplies as well as set up appointment with home visit field care manager. She will need growth ultrasound scheduled el. Order placed. Nicolette Bobo APRN.CNM documented in this encounterAdena Pike Medical Center06-27-2025 Telephone encounter Note * Telephone Encounter - Nicolette Bobo APRN.CNM - 03/27/2025 3:22 PM EDT Yes, first available growth US is fine! Thank you. Nicolette Bobo APRN.CNM [facility]06-27-[facility] Telephone encounter Note* Telephone Encounter - Minda Dela Cruz RN - 03/27/2025 3:03 PM EDT Please file pended orders. First available growth ultrasound appointment is not until 04/07, ok to wait until then-she would be 30 weeks. She already has growth scheduled at 32 weeks for marginal cord insertion. Minda Dela Cruz RN [facility]06-27-2025 Telephone encounter Note* Telephone Encounter - Minda Dela Cruz RN - 03/27/2025 3:01 PM EDT Images from the original note were not included. Nicolette Bobo APRN.CNM [facility] Ob-Licensed Aircraft Maintenance Engineer Pool Please notify patient that 3 hour glucose tolerance test came back abnormal. Please order supplies as well as set up appointment with home visit field care manager. She will need growth ultrasound scheduled el. Order placed. Nicolette Bobo APRN.CNM [facility]06-26-[facility] Telephone encounter Note* Telephone Encounter - Zahra Baez RN - 03/26/2025 12:27 PM EDT Patient called. She viewed her CMP and anemia reflex panel. Concerned that there are several low values. Asking if there is need to be concerned. Zahra Baez RN [facility]06-26-[facility] Miscellaneous Notes* Telephone Encounter - Zahra Baez [...] and address in NIRALI absence. See Pt's CombineNet message-asking about results. Tamiko Hodge RN documented in this encounterAdena Pike Medical Center06-26-2025 Telephone encounter Note * Telephone Encounter - Nicolette Bobo APRN.CNM - 03/26/2025 11:35 AM EDT Elevated 1 hour glucose screening. Order for fasting 3 hour GTT placed. Patient to complete prior to next visit if possible. [facility]06-26-[facility] Telephone encounter Note* Telephone Encounter - Tamiko Hodge RN - 03/26/2025 10:43 AM EDT Please see Pt's labs from 03/25/25 and address in NIRALI absence. See Pt's O[employer]ys [employer] Systemst message-asking about results. Tamiko Hodge, RN [facility]06-25-2025 Progress note* Quick Notes - Merry White [...] d/w her peds choices Merry White M.D. [facility]06-25-2025 Miscellaneous Notes* Quick Notes - Merry White [...] choices Merry White M.D. documented in this encounterAdena Pike Medical Center06-25-2025 Instructions* Patient Instructions* Elli Boss LPN - 03/25/2025 8:18 AM EDT SEQUENTIAL SCREENINGS The [facility] offers sequential screenings for women who are [...] testing. It will require an appointment withour industrial machine system technician. This is not an ultrasound performed [...] the above symptoms, contact our office at [phone] and ask to speak with anurse. After hours, you can call doctors registry at [phone] OR call [facility] at [phone] ask to have the doctor finance and administration manager paged. If you consider this an emergency, dial 6 or go to your nearest emergency department. NEED HELP? Are you dealing with a violent or abusive relationship? Are you a victim of rape or sexual assult? Call [facility] ([place]) 24 hour Crisis Hotline: 363.360.1874 or 473-394-6183. MANUAL Your Guide to a Healthy manual is now on-line. Visit [email or web address] to download your free copy documented in this encounterAdena Pike Medical Center06-23-2025 Progress note* Quick Notes - Irene Mc [...] RTO in 2 weeks Irene Mc APRN.CNM [facility]06-23-2025 Miscellaneous Notes* Quick Notes - Irene Mc [...] weeks Irene Mc APRN.CNM documented in this encounterAdena Pike Medical Center06-18-2025 Instructions* Patient Instructions* Irene Mc APRN.CNM - [...] the above symptoms, contact our office at [phone] and ask to speak with anurse. After hours, you can call doctors registry at [phone] OR call [facility] at [phone] ask to have the doctor finance and administration manager paged. If you consider this an emergency, dial 9-1-1 or go to your nearest emergency department. NEED HELP? Are you dealing with a violent or abusive relationship? Are you a victim of rape or sexual assult? Call [facility] ([place]) 24 hour Crisis Hotline: 738.271.7369 or 999-172-0633. MANUAL Your Guide to a Healthy manual is now on-line. Visit [email or web address] to download your free copy documented in this encounterAdena Pike Medical Center06-18-2025 Telephone encounter Note * Telephone Encounter - Lali Aguiar RN - 03/18/2025 2:37 PM EDT See 03/18/25 phone note. Patient coming in today. Lali Aguiar RN [facility]06-18-2025 Miscellaneous Notes* Telephone Encounter - Lali Aguiar RN - 03/18/2025 2:37 PM EDT See 03/18/25 phone note. Patient coming in today. Lali Aguiar RN documented in this encounterAdena Pike Medical Center06-18-2025 Telephone encounter Note * Telephone Encounter - Lali Aguiar RN - 03/18/2025 2:06 PM EDT Patient notified and scheduled for today. Lali Aguiar RN [facility]06-18-2025 Miscellaneous Notes* Telephone Encounter - Lali Aguiar [...] 12:24 PM EDT 27w3d Patient previously sent CombineNet message on 03/16 regarding dizzy episode she [...] advise. Lali Aguiar RN documented in this encounterAdena Pike Medical Center06-18-2025 Telephone encounter Note * Telephone Encounter - Irene Mc APRN.CNM - 03/18/2025 1:33 PM EDT Please have patient come in at 3:30 or sooner if she can and I will fit her in. Thank you, Irene Mc APRN.CNM [facility] Work Phone: 1(716) 474-735206-18-2025 Telephone encounter Note* Telephone Encounter - Lali Aguiar RN - 03/18/2025 12:24 PM EDT 27w3d Patient previously sent CombineNet message on 03/16 regarding dizzy episode she had. The dizziness has subsided, but since then she has felt off. She has had a headache for two days and just feels like she is in a fog. No vision changes or RUQ pain. Checked her BP at pharmacy and it was elevated 130/90. No available openings this afternoon. Please advise. Lali Aguiar RN [facility]05-28-2025 Progress note* Quick Notes - Marlene Jimenez APRN.CITRUS FRUIT PACKER - 02/25/2025 8:43 AM EDT EH - [...] weeks or sooner as needed. Marlene Haury, TRANSFORMER MAKER.CITRUS FRUIT PACKER [facility]05-28-2025 Miscellaneous Notes* Quick Notes - Marlene Jimenez [...] needed. Marlene Jimenez APRN.EVE documented in this encounterAdena Pike Medical Center05-28-2025 Instructions* Patient Instructions* Devika Peacock MA - 02/25/2025 8:37 AM EDT SEQUENTIAL SCREENINGS The [facility] offers sequential screenings for women who are [...] testing. It will require an appointment withour industrial machine system technician. This is not an ultrasound performed [...] the above symptoms, contact our office at [phone] and ask to speak with anurse. After hours, you can call doctors registry at [phone] OR call [facility] at [phone] ask to have the doctor finance and administration manager paged. If you consider this an emergency, dial 9-9-6 or go to your nearest emergency department. NEED HELP? Are you dealing with a violent or abusive relationship? Are you a victim of rape or sexual assult? Call [facility] ([place]) 24 hour Crisis Hotline: 834.923.8491 or 397-351-0680. MANUAL Your Guide to a Healthy manual is now on-line. Visit [email or web address] to download your free copy documented in this encounterAdena Pike Medical Center04-30-2025 NoteHNO ID: [id number] Author: MARLENE JIMENEZ APRN.CITRUS FRUIT PACKER Service: ? Author Type: Nurse Practitioner Type: [...] weeks or sooner as needed. Marlene Jimenez APRN.[facility]04-30-2025 History of Present illness Narrative* Marlene Jimenez [...] needed. Marlene Jimenez APRN.EVE documented in this encounterAdena Pike Medical Center04-30-2025 Instructions* Patient Instructions* Efren Nino MA - 01/28/2025 8:19 AM EDT SEQUENTIAL SCREENINGS The [facility] offers sequential screenings for women who are [...] testing. It will require an appointment withour industrial machine system technician. This is not an ultrasound performed [...] the above symptoms, contact our office at [phone] and ask to speak with anurse. After hours, you can call [employer] registry at [phone] OR call [facility] at [phone] ask to have the doctor finance and administration manager paged. If you consider this an emergency, dial 9-1-9 or go to your nearest emergency department. NEED HELP? Are you dealing with a violent or abusive relationship? Are you a victim of rape or sexual assult? Call [facility] ([place]) 24 hour Crisis Hotline: 509.244.6315 or 051-216-2050. MANUAL Your Guide to a Healthy manual is now on-line. Visit [email or web address] to download your free copy documented in this encounterAdena Pike Medical Center04-02-2025 Progress note* Quick Notes - Merry White [...] 4 weeks or prn Merry White M.D. [facility]04-02-2025 Miscellaneous Notes* Quick Notes - Merry White [...] prn Merry White M.D. documented in this encounterAdena Pike Medical Center04-02-2025 Instructions* Patient Instructions* Lima Anderson MA - 12/31/2024 8:38 AM EDT SEQUENTIAL SCREENINGS The [facility] offers sequential screenings for women who are [...] testing. It will require an appointment withour industrial machine system technician. This is not an ultrasound performed [...] the above symptoms, contact our office at [phone] and ask to speak with anurse. After hours, you can [facility] at [phone] OR call [facility] at [phone] ask to have the doctor finance and administration manager paged. If you consider this an emergency, dial 2-8-1 or go to your nearest emergency department. NEED HELP? Are you dealing with a violent or abusive relationship? Are you a victim of rape or sexual assult? Call [facility] ([facility] 24 hour Crisis Hotline: 936.807.3584 or 744-525-5122. MANUAL Your Guide to a Healthy manual is now on-line. Visit [email or web address] to download your free copy documented in this encounterAdena Pike Medical Center03-05-2025 Progress note* Quick Notes - Nicolette Bobo [...] - RTO 4 weeks Nicolette Bobo APRN.CNM [facility]03-05-2025 Miscellaneous Notes* Quick Notes - Nicolette Bobo [...] weeks Nicolette Bobo APRN.CNM documented in this encounterAdena Pike Medical Center02-28-2025 History of Present illness Narrative* Nichole CHASE Vasquez - 11/28/2024 9:30 AM EST REPRODUCTIVE GENETIC COUNSELING INITIAL VISIT Millie Dela Cruz : 1995 Above identifiers confirmed by Laquita Chinchilla MS, [facility] Consultation requested by: Marlene Jimenez APRN.CNP Date of clinic visit: November 28, 2024 Stand Grinder offered/present: No - Burmese per EMR Millie Dela Cruz is a 29 year old female referred by Marlene Jimenez APRN.CNP for genetic counseling to discuss her family medical history. Ms. Dela Cruz is seen via a virtual Distance Health visit today via [email or web address] platform per patient choice. The visit is conducted synchronously in real-time. The patient is unaccompanied. A genetic counseling library assistant was present for the visit with the patient's consent. I have communicated my name and active licensure. The patient's identity and physical location wereverified at the time of this visit. Either the patient or their legal special service representative has been informed of the risks [...] she has had a low risk NIPT ([id number]) in thus far. REPRODUCTIVE HISTORY: Currently : Yes / w5d (by LMP) LMP: 09/07/24 VIRGIL: 06/14/25 history: 1. 08/2020, SAB at 5w 2. 03/2024, ectopic, treated with methotrexate 3. Current Infertility as a couple: Yes - Tried for 5 years before 2022 Patient's infertility work-up: PCOS Partner's infertility work-up: No work-up Infertility therapies: None to date Parental Screens: [employer] / [employer] Fundamental (14 condition) Panel: Pending through OB Hemoglobinopathies: No; Patient's MCV: 91.3 fL Protestant Diseases: Not at increased risk Other: No [...] yes (Date: 11/17/24, Result: Negative). - NIPT ([id number]): - Screen negative for Trisomy 21, Trisomy [...] - Patient and/or partner did not report -Dominican, , Mediterranean, Ashkenazi Protestant and/or Liberian-Witten/Cajun ancestries unless noted above. - Patient and [...] opted for stepwise expanded carrier screening through [employer] (Bamberg Plus panel). Reviewed Ms. Dela Cruz and her 's family history of early onset colon and breast cancer. Discussed cancer predisposition syndromes and autosomal dominant inheritance. Informed her of the availability of cancer genetic counseling services at the [facility] which are recommended for her [id number], her maternal grandmother, and her paternal great-uncle, [...] opted for stepwise expanded carrier screening through [employer] (Bamberg Plus panel). [employer] was contacted to upgrade her panel and [...] greater than 50% of which was spent geyr-[id number] counseling. This plan is being carried out under the oversight of Dr. Lizzeth Ferrara. This note will also be sent to the referring provider via the electronic medical record. Laquita Chinchilla MS, ÁLVARO Licensed, Certified Genetic Counselor EPIC CC: Marlene Jimenez APRN.EVE - Referring Provider Dr. Lizzeth Ferrara (formal waiter/waitress) documented in this encounterAdena Pike Medical Center02-28-2025 NoteHNO ID: [id number] Author: LAQUITA CHINCHILLA LGC Service: ? Author Type: Genetic Counselor Type: Progress Notes Filed: 01/02/2025 08:16 Note Text: REPRODUCTIVE GENETIC COUNSELING INITIAL VISIT Millie Dela Cruz : 1995 Above identifiers confirmed by Laquita Chinchilla MS, CGC Consultation requested by: Marlene Jimenez APRN.CNP Date of clinic visit: November 28, 2024 Stand Grinder offered/present: No - Burmese per EMR Millie Dela Cruz is a 29 year old female referred by Marlene Jimenez APRN.EVE for genetic counseling to discuss her family medical history. Ms. Dela Cruz is seen via a virtual Distance Health visit today via [email or web address] platform per patient choice. The visit is conducted synchronously in real-time. The patient is unaccompanied. A genetic counseling library assistant was present for the visit with the patient's consent. I have communicated my name and active licensure. The patient's identity and physical location were verified at the time of this visit. Either the patient or their legal special service representative has been informed of the risks [...] she has had a low risk NIPT ([id number]) in thus far. REPRODUCTIVE HISTORY: Currently : Yes / w5d (by LMP) LMP: 09/07/24 VIRGIL: 06/14/25 history: 1. 08/2020, SAB at 5w 2. 03/2024, ectopic, treated with methotrexate 3. Current Infertility as a couple: Yes - Tried for 5 years before 2022 Patient's infertility work-up: PCOS Partner's infertility work-up: No work-up Infertility therapies: None to date Parental Screens: [employer] / [employer] (14 condition) Panel: Pending through OB Hemoglobinopathies: No; Patient's MCV: 91.3 fL Protestant Diseases: Not at increased risk Other: No [...] yes (Date: 11/17/24, Result: Negative). - NIPT ([id number]): - Screen negative for Trisomy 21, Trisomy 18, Trisomy 13, and sex chromosome aneuploidies - Reported sex: male Ultrasounds: - Dating scan at 5w4d gestation by LMP (performed by Marlene Jimenez APRN.CITRUS FRUIT PACKER): 6 weeks by scan. - Dating scan [...] - Patient's (more content not included)...[facility]02-24-2025 Telephone encounter Note* Telephone Encounter - Rickey [...] this to Laquita and reach out via [facility] if there are any. PT appreciated the assistance and had no further questions. Rickey Aguilar Genetic Counseling Medical Appointment Clerk [facility]02-24-2025 Miscellaneous Notes* Telephone Encounter - Rickey Collins [...] this to Laquita and reach out via [facility] if there are any. PT appreciated the assistance and had no further questions. Rickey Aguilar Genetic Counseling Medical Appointment Clerk documented in this encounterAdena Pike Medical Center02-03-2025 Telephone encounter Note * Telephone Encounter - iMnda Dela Cruz RN - 11/03/2024 9:47 AM EST Patient 8w1d, last seen for New OB on 10/31. Minda Mae, RN [facility]02-03-2025 Miscellaneous Notes* Telephone Encounter - Minda Dela Cruz RN - 11/03/2024 9:47 AM EST Patient 8w1d, last seen for New OB on 10/31. Minda Dela Cruz RN documented in this encounterAdena Pike Medical Center01-30-2025 NoteHNO ID: [id number] Author: MARLENE JIMENEZ APRN.[employer] P[employer]ER Service: ? Author Type: Nurse Practitioner Type: Progress Notes Filed: 10/31/2024 11:39 Note Text: Grommet Worker offered: Patient declines. INITIAL OB ASSESSMENT HPI: [...] NECK: Negat (more content not included)...[facility]01-30-2025 History of Present illness Narrative* Marlene Jimenez APRN.[employer] P[employer]ER - 10/30/2024 2:59 PM EST Grommet Worker offered: Patient declines. INITIAL OB ASSESSMENT HPI: [...] discussed with the Patient or Patient's Authorized Technical Operations Vice President. As applicable, any other physician, advance practice provider, medical student, or other health professional student that will be observing or involved in the sensitive examination for educational or training purposes was discussed with the Patient or Authorized Technical Operations Vice President. The Patient or Authorized Technical Operations Vice President has agreed to proceed with the sensitive [...] Your guide to a health and the Poultry Vaccinator. Discussed hemoglobin electrophoresis. Patient: Declines Reviewed midwifery and stone layer services that are available. 2) Screening: Hemoglobin [...] (28-30 weeks): [] Consent [] Contraception [] Cashier Ticket Selling [] TeamBirth handout Third trimester (36-40 weeks): [...] Avoid fatty foods, Tums PRN Marlene Jimenez APRN.CITRUS FRUIT PACKER History of Smoking - 10/31/2024 Comment: October 31, 2024 Quit 10/02/24! Marlene Jimenez APRN.EVE History of Ectopic - 10/31/2024 Comment: October 31, 2024 Ultrasound confirms IUP Marlene Jimenez APRN.CITRUS FRUIT PACKER Follow up in 4 weeks or sooner prn. Plan for NT scan between 12w0d and 13w6d gestation. Marlene Jimenez APRN.CITRUS FRUIT PACKER documented in this encounterAdena [facility]ike [facility]01-30-[facility]25 Instructions* Patient Instructions* Marlene Jimenez APRN.CNP - 10/30/2024 2:59 PM EST Images from the original note were not included. Please select the following link to access the [facility] Your Guide to a Healthy . [email or web address] Please select the following link to access the [facility] Your Guide to a Healthy . www.[facility].org/healthypregnancyguide Psychotherapy Services at [facility] Call Behavioral Health Access Line at [phone] to schedule Individual psychotherapy In-person or virtual Wait time for first evaluation may be 12 or more weeks. Wait list spots may be available. Due to the high volume of patients this option is recommended if you are looking for short term acute symptomcoping strategies. 2-615-5-SDEY7SAIF - [place] Maternal Mental Health Hotline If you are in suicidal crisis, please call or text 6-222-016-TALK ( ) or visit the National Suicide Prevention Lifeline website. mchb.[facility].gov If you are in crisis, call 911 or go to your nearest Emergency Department Here are some links for wonderful Providers here in the community and surrounding areas. Do not hesitate to contact their offices, many are offering virtual visits during this time. Psychotherapy Services outside of [facility] Support International Online Provider Directory https://Kedzoh.Mpayy/ - can assist in finding providers in your area that might be more extensive then the list below. Counseling [facility] - [place], [place] [address] [place] [address] [facility] [address] [place] [address] [facility] [address] [place] [address] [facility] [address] [place] [address] Johanna Brito MD [address] [place], [place] [id number] [facility] [place] [facility] [address] [facility], [address] [place] [address] [facility] [address] [place] [address] [facility] Counseling Services [place] / [place] [phone]/ [phone] Hui Morales [address] [facility] [address] [facility] [phone] [facility] [place] / [place] [phone] [facility] [address] [place] [address]/ [facility] and judith gap [phone] Vadim Waterman, ESTEVAN, CLC [facility] Therapy Workshops, telehealth and at home visits. [phone] [facility] counseling [place]arte 20 locations [place], [place], [place], [place], [place], [place], [place], [facility], [place], [place], [place], [place], [place], [place], [facility], [place], [place] ,[facility], [place], [place],[facility], [facility], [place], [facility], [facility], [place] www.RUSBASE [phone] Psychotherapy resources outside of [facility] are listed below [facility] [employer]zen Analytics Psychotherapy Web: https://www.WeTOWNS/ Support International Online Provider Directory https://Vacunek/ [facility]ight [facility] https://Gramco/ Partners for Behavioral Health and Wellness Web: https://Pelican Harbour Seafood/ NextInput for Effective Living Web: https://Causes.Mpayy/ LifeStance Web: https://Peaberry Software.Mpayy/location/critical access hospital/ore[place]/ [facility] Web: https://www.[facility].org/ The Centers Web: https://Neptune Mobile Devicesio.org/ Recovery Resources Mental health and substance abuse help Web: https://www.Citra Styles.org & RESOURCES Support International Direct peer support and connection to professional resources Non-Emergency Helpline Phone: / Text: [phone] Web: https://www..net/ Online Provider Directory: https://Kedzoh.Mpayy/ Online Support Meetings: https://www..net/get-help/tyn-txjvcc-uobojad-meetings/ STEPHEN Baby and Cost Accounting Manager Services Web: https://iLogon/ Mosaic Storage Systems Expert information on medication use during and Text: [phone] Web: https://PolyRemedy/ NATIONAL REGISTRY FOR PSYCHIATRIC MEDICATIONS Currently studying the safety of antidepressants, ADHD medications and atypical antipsychotics taken during TO PARTICIPATE CALL TOLL-FREE: Web: https://womensmentalhealth.org/research/pregnancyregistry/ Support Groups: [facility]- Follow on facebook Baby Bistro support group led by [facility] department [facility] - Support Group [facility].org The POEM support group [phone] Www.poemonline.org Follow on facebook - POEM gu chapter Online support meetings PSI https://www..net/get-help/lkl-ywzszn-spzgscs-meetings/ [facility] mommy and me virtual support group 11:30-1pm Support for mothers and new babies and toddlers [place] childbirth education: Childbirth @cc.org or call [phone] CRISIS: CRISIS HOTLINE [phone], 911 or go to the nearest [facility] [phone] / [facility] [phone] https://www.[facility].org Crisis text line text the word HOME to [address]11839 [facility] [address] krishna [address] [facility] [address] www.Unified OfficetedPrimus Green Energy.Mpayy Latia Stokes clinical counseling [address] [address] www.bethbritton.Mpayy [phone] [facility] psychotherapy Alexia Jose TEST SKEIN WINDER INSURANCE FOLLOW UP REPRESENTATIVE-S [address] [facility] www.Arquo Technologies [phone]/ [place] [phone] They all offer virtual. All work with trauma Support groups Online support meetings PSI https://www..net/get-help/sva-ymgobv-foosumc-meetings/ Here are the support groups they offer: Support of parents of 1 to 4 years old children POEM ( Outreach and Encouragement for Moms) offers free support for mothers experiencing depression, anxiety, and other mood and anxiety disorders. Masks are recommended but not required. No pre-registration required. Babies in arms welcome. meetings now take place on the and Sunday of each month Location: [facility] [address] [place] [address] Room 122 (library room) 7-8:00 p.m. When you enter the [facility] parking lot off of [address] the entrance door closest to our meeting room is on the front of the building toward the right. For those who are more comfortable with a virtual platform, POEM offers online support group options several days of the week. To register for an online group or to find out more about POEM, website at: https://mhaohio.org/get-help/sjrqqdvb-jcjgtn-blixtm/poem-services/ offer a confidential helpline: private Facebook group is called PATTY Tang Here are the groups they offer: Traumatic childbirth resources: Http://pattch.org/ https://www.Securesight TechnologiesmarieBaseKit.Mpayy/ Name Location (s) Phone # (s) Services Website [facility] Psychotherapy [address] [place], [place] - [phone]; [address] [phone] In-Person GROUPS INDIVIDUAL THERAPY MATERNAL- MENTAL HEALTH MEDICATION MANAGEMENT PLAY AND ART THERAPY TELETHERAPY https://www.Compound Time.Mpayy/services/ [facility]stone Anamaria GU? [address] [place], [place] [address] ? [address], [address] [place], [place] [address] ? VERONICA [address] [place], [place] [address]? Grief Support Groups Individual Grief Counseling Spiritual Care Memorial Events https://[place].[facility].org/grief-services [facility] [address] [place], [place] [address]; ; Email: [email or web address] AR Women's Mental Health; Couples Counseling; Trauma (EMDR); Stress Management; Mood and Anxiety Related Disorders- and much more https://www.TasteSpacecounsCequens/ LifeStance Numerous as they have contract providers: access website to find specific providers nearyou Counseling including CBT and EMDR as well as many more modalities; Medication Management; Telehealth and In-Person https://United Pharmacy Partners (UPPI)/ Stemline Therapeutics Behavioral Health and Wellness [address] [place] [address]; [phone] Personal, Family and Group Therapy; Psychological Testing and Diagnosis; Medication Management; Life and Career Coaching; Psychoanalysis; Literacy Testing; Yoga and Meditation https://Pelican Harbour Seafood/ Sino Gas & Energy [facility] [address] [facility] [address] [address] [address] ; [address] [facility], [address] [place] [address]; Office # for both sites: Individual and Couples Counseling https://www.ControlRad Systems.Mpayy/paymentinsurance.html OCD & Anxiety [facility] [address] [facility], [address], [place] [address]; Specialize in Cognitive-Behavioral Therapy (CBT) for the treatment of anxiety disorders across the lifespan. TELEHEALTH ONLY. https://ocdandanxietycentGeorama.Mpayy/faqs [facility] [address] [facility]th [place], [address] [place] [address] [facility] [place] [address] [place] [address] [facility] [place] [address] [place] [address] [place], [address], [address] [place] [address] [facility]. [place], [place], [address] [place] [address] [place], [place], [id number] Transportation Services To minimize patient barriers, [facility] provides transportation services to patients who [...] assistance Substance abuse treatment Medication assisted treatment https://www.[facility].org/mental-health/ [facility] OFFICE AT [facility] [address] [place] [address] [facility] OFFICE [address] [place] [address] [facility] OFFICE [address] [place] [address] TOW OFFICE (at [facility]) [address] [place] [address] [facility] SYRINGE EXCHANGE PROGRAM & HIV SCREENING [address] [place] [address] CIMARRON SYRINGE EXCHANGE PROGRAM [address] [place] [address] Behavioral Health Urgent Care: [facility] Sites Counseling Indvidual and Group Medication Management Case Management benefits applications housing assistance Substance abuse treatment Medication assisted treatment Employment Services/ Job Training https://theApps4AllersKoruio.org/ Recovery Resources [address] [place], [place] [address]: P: [phone] [address] [facility], [address], [place] [address] P: [phone] Our services include: Addiction Mental Health Treatment Assessment Psychiatry Medical Care Employment Housing Drug and Alcohol Prevention HIV/AIDS Prevention https://www.recres.org/ [facility] [place] [address] [place] [address] [place] [address] [place] [address] [address] [place], [place] [address] [place] [address] [place] [address] [place] [address] [place] [address] [address] [place] [address] [place] [address] [place] [address] TMS Therapy/ Counseling Psychocological Testing for ADHD Medication Management In-Person/ Telemedicine https://www.Owlient.com/patients-depression Memory & Psychological services [address] [place] [address], [place] [address] Neuropsychological Testing For ADHD https://www.memoryandpsych.com/ The Counseling Center [facility] - Main Office [address] [place] [id number] [phone] [address] Providing rfcf-kx-xiua and telehealth services. Adult Case Management Community Education and Prevention Employment Outpatient Treatment - Counseling & Psychotherapy Psychiatric Services http://www.[facility].org/ [facility] [address] [address] [facility] [address] [place] [address] Virtual Appointments! Now offering safe and convenient virtual client appointments to anyone in [place]! Individual Therapy Couples/Relationship Therapy Trauma/EMDR Therapy Art Therapy Play Therapy Assembly Cleaner Support: Parenting Skills, Parent Child Interaction Therapy, Parent Infant Interaction Therapy Meditation Dietitian/Project Asst Services Group Therapy Yoga https://www.Moonshado.Mpayy/ Jenny Najera [phone] Private Practice: Telehealth Only Specializes in EMDR for Trauma None documented in this encounterAdena Pike Medical Center01-27-2025 Telephone encounter Note * Telephone Encounter - Lali Aguiar RN - 10/27/2024 9:44 AM EST Last weight mgmt with AG 06/19/24. Patient now early - NOB scheduled 10/31/24. Requested Prescriptions Pending Prescriptions Disp Refills metFORMIN (GLUCOPHAGE) 1,000 mg tablet 180 tablet 2 Sig: Take 1 tablet by mouth two times a day with meals. Lali Aguiar RN [facility]01-27-2025 Miscellaneous Notes* Telephone Encounter - Lali Aguiar RN - 10/27/2024 9:44 AM EST Last weight mgmt with AG 06/19/24. Patient now early - NOB scheduled 10/31/24. Requested Prescriptions Pending Prescriptions Disp Refills metFORMIN (GLUCOPHAGE) 1,000 mg tablet 180 tablet 2 Sig: Take 1 tablet by mouth two times a day with meals. Lali Aguiar RN documented in this encounterAdena Pike Medical Center01-27-2025 NoteHNO ID: [id number] Author: CARROL GONZALEZ MD Service: ? Author Type: Physician Type: Progress Notes Filed: 10/27/2024 08:52 Note Text: Millie Dela Cruz is a 29 year old female who presented for tribunal member ultrasound today. Encounter Diagnosis ICD-10-CM 1. Hx of ectopic Z87.59 Please see report under imaging tab. Carrol Gonzalez MD October 27, 2024 8:48 [facility]01-27-2025 History of Present illness Narrative * Carrol Gonzalez MD - 10/27/2024 8:48 AM EST Millie Dela Cruz is a 29 year old female who presented for tribunal member ultrasound today. Encounter Diagnosis ICD-10-CM 1. Hx of ectopic Z87.59 Please see report under imaging tab. Carrol Gonzalez MD October 27, 2024 8:48 AM documented in this encounterAdena Pike Medical Center01-24-2025 NoteHNO ID: [id number] Author: GEORGE VIEIRA MD Service: ? 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 HPI: Patient presents after dating US. She has trouble sleeping and a little nausea but no vomiting. Also she has been having headaches. 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 As applicable, any other physician, advance practice provider, medical student, or other health professional student that will be observing or involved in the sensitive examination for educational or training purposes was discussed with the Patient or Authorized Technical Operations Vice President. The Patient or Authorized Technical Operations Vice President has agreed to proceed with the sensitive examination. (Sensitive examination includes inspection and/or palpation of the breasts, pelvis, prostate and anorectal regions). EXAM: BP 118/70 Wt 188 lb (85.3kg) LMP 09/07/2024 GENERAL: pleasant, female in no apparent distress HEENT: Normocephalic, atraumatic, mucus membranes moist, and no lesions CHEST: Normal inspiratory effort PELVIC: external genitalia normal, normal Bartholin's glands, urethra, [place]'s glands NEURO: alert and oriented x3,exam grossly [...] Level: 2 - Straightforward documented in this encounterAdena Pike Medical Center01-16-2025 NoteHNO ID: [id number] Author: MARLENE JIMENEZ APRN.CNP Service: ? Author Type: Nurse Practitioner Type: Progress Notes Filed: 10/16/2024 12:15 Note Text: Grommet Worker offered: Patient declines. 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 As applicable, any other physician, advance practice provider, medical student, or other health professional student that will be observing or involved in the sensitive examination for educational or training purposes was discussed with the Patient or Authorized Technical Operations Vice President. The Patient or Authorized Technical Operations Vice President has agreed to proceed with the sensitive examination. (Sensitive examination includes inspection and/or palpation of the breasts, pelvis, prostate and anorectal regions). EXAM: BP 118/70 Wt 188 lb (85.3kg) LMP 09/07/2024 GENERAL: pleasant, female in no apparent distress HEENT: Normocephalic, atraumatic, mucus membranes moist, and no lesions CHEST: Normal inspiratory effort PELVIC: external genitalia normal, normal Bartholin's glands, urethra, [place]'s glands NEURO: alert and oriented x3,exam grossly [...] Decision Making Level: 2 - [facility] Telephone encounter Note* Telephone Encounter - Lali Aguiar RN - 10/15/2024 1:21 PM EST Patient notified and scheduled. Lali Aguiar RN [facility]01-15-2025 Miscellaneous Notes* Telephone Encounter - Lali Aguiar [...] advise. Lali Aguiar RN documented in this encounterAdena Pike Medical Center01-15-2025 Telephone encounter Note * Telephone Encounter - [...] pain and bleeding precautions. Marlene Jimenez APRN.EVE [facility] Work Phone: [phone] Telephone encounter Note* Telephone Encounter - Lali Aguiar RN - 10/15/2024 11:41 AM EST LMP 09/07/24 - 5w3d Patient called into office very anxious d/t anxious. No recent intercourse. Spotting and back pain stopped this morning now. No cramping, just having pelvic pressure. NOB scheduled 10/24/24. Hcg quants pending if needed. Please review her message and advise. Lali Aguiar RN [facility]01-07-2025 Telephone encounter Note* Telephone Encounter - Zahra Baez RN - 10/07/2024 11:22 AM EST See Quividihart message sent by patient today. Zahra Baez RN [facility]01-07-2025 Miscellaneous Notes* Telephone Encounter - Zahra Baez RN - 10/07/2024 11:22 AM EST See Quividihart message sent by patient today. Zahra Baez [...] PM EST Hcg levels ordered. Please have finance and administration manager provider review. George Vieira MD * Telephone [...] Return call to: self Call patient at: [phone] (cell), it is OK to leave message Payor: ANJALI / Plan: ANJALI OAP / Product Type: Open Access / Krista Paz documented in this encounterAdena Pike Medical Center01-07-2025 Telephone encounter Note * Telephone Encounter - George Vieira MD - 10/07/2024 11:11 AM EST Hcg levels increasing well. Dating US ordered. Please schedule when patient would be 6 weeks based on LMP. George Vieira MD' [facility] Work Phone: [phone] 403-711201-07-2025 Telephone encounter Note* Telephone Encounter - Lali Aguiar RN - 10/07/2024 9:39 AM EST Please review hcg lab results. hCG Quantitative, Blood (mIU/mL) Date Value 2024 385.3 10/03/2024 118.6 Lali Aguiar RN [facility]01-02-2025 Telephone encounter Note* Telephone Encounter - Tamiko Hodge RN - 10/02/2024 2:41 PM EST Pt notified. Pt will get drawn tomorrow (10/03/24) and Sunday (10/05/24). Please keep open for HCG results. Tamiko Hodge RN [facility]01-02-2025 Telephone encounter Note* Telephone Encounter - George Vieira MD - 10/02/2024 2:38 PM EST Hcg levels ordered. Please have finance and administration manager provider review. George Vieira MD [facility]01-02-2025 Telephone encounter Note* Telephone Encounter - [...] NOB scheduled. Orders pending. Zahra Baez RN [facility]01-02-2025 Telephone encounter Note* Telephone Encounter - [...] encounter to the schedulers in this office. [facility]01-02-2025 Telephone encounter Note* Telephone Encounter - Zahra [...] Return call to: self Call patient at: [phone] (cell), it is OK to leave message Payor: ANJALI / Plan: ANJALI OAP / Product Type: Open Access / Krista Paz [facility]12-19-2024 NoteHNO ID: [id number] Author: VICKY RODGERS MD Service: ? Author Type: Physician Type: Progress Notes Filed: 09/18/2024 10:27 Note Text: Reviewed chart. Pt has met criteria to remain on medication. Will refill medication in AG absence. Pt has follow up appt when AG returnsSelect [facility] History of Present illness Narrative* Vicky Rodgers [...] Minda Dela Cruz RN documented in this encounterAdena Pike Medical Center12-19-2024 NoteHNO ID: [id number] Author: MINDA DELA CRUZ RN Service: ? Author Type: Registered Nurse Type: Progress Notes Filed: 09/18/2024 10:27 Note Text: Patient presents for weight, BP and pulse check for Phentermine refill. Patient denies any unwanted side effects. See vitals tab for results. Patient has next appointment for weight management scheduled with Leona Enriquez. Minda Dela Cruz RN[facility]09-19-2024 Instructions* Patient Instructions* Leona Enriquez APRN.CITRUS FRUIT PACKER - 06/19/2024 9:56 AM EDT The Role of Exercise in Weight Management No one can deny the psychological and physical benefits of exercise. Regular physical exercise aidsin stress reduction, blood sugar control, cholesterol reduction, and improved sleep. It s also beneficial for weight control. both aerobic and strength training is beneficial for weight control. The ACSM ([employer] College [employer]) advises 200-300 minutes [...] is beneficial for weight control. The ACSM ([employer]) advises 200-300 minutes of moderate-intensity exercise to lose weight and sustain the loss.Moderate-intensity exercises include brisk walking, jogging, using a rowing machine, or doing a 50-60 minute dance class. To transit authority police officer the level of intensity you should aim [...] person or at home) documented in this encounterAden[facility]09-19-[facility] History of Present illness Narrative* Leona Enriquez [...] with proschutto with pistachios/cashews/almonds and Chobani SF Solomon Islander yogurt or Triple Zero L - 2-3 pm breakfast sandwich or protein with sweet potato S - none D - 1845 pm meat, small portion - mashed potato/sweet potato fries airfried, occasional vegetable if eating out or Eats out - Qatari chicken enchillada, rice & beans or thin [...] that continued use is off label for prison management of weight control. The patient is [...] Level: 4 - Moderate documented in this encounterAdena Pike [facility] Center09-19-2024 NoteHNO ID: [id number] Author: LEONA ENRIQUEZ APRN.CNP Service: ? Author [...] with proschutto with pistachios/cashews/almonds and Chobani SF [place] Islander yogurt or Triple Zero L - 2-3 pm breakfast sandwich or protein with sweet potato S - none D - 184 pm meat, small portion - mashed potato/sweet potato fries airfried, occasional vegetable if eating out or Eats out - Qatari chicken enchillada, rice AND beans or thin [...] 07/14/2023 32. (more content not included)...[facility] 04-02-2024 History of Present illness Narrative* Zahra Muniz MD - 04/02/2024 10:00 AM EDT [facility] ATTENDING PHYSICIAN METHOTREXATE COUNSELING NOTE The [...] days and 7 days. Zahra Muniz MD [facility] METHOTREXATE INJECTION NOTE Procedure Date: April 02, 2024 Procedure: Methotrexate Injection Indication: Millie Dela Cruz presents for Methotrexate injection for ectopic . [facility] ATTENDING PHYSICIAN METHOTREXATE COUNSELING NOTE completed by Dr Vieira. Patient's last menstrual period was 02/05/2024 (exact date). Procedure Details: Methotrexate ordered by: Dr Vieira Dose: 50mg/m2, BSA - There is no height or weight on file to calculate BSA., actual dose 98 mg Dose calculation confirmed by: Rachana White MD Lot #: [id number] Expiration Date: 09/23 UNIVERSAL PROTOCOL / SAFETY [...] gluteus. Zahra Muniz MD documented in this encounterAdena Pike [facility] Center07-03-2024 Instructions* Patient Instructions* Zahra Muniz MD - [...] of this medication more commonly develop with prison treatment, such as received by cancer patients. [...] directly. Encounter provider: Zahra Muniz MD Number: [phone] Evenings and weekends: After hours, the office number will forward to the answering service who will contact the on-call Gynecology (NETWORK RELATIONS CONSULTANT) doctor. If there is difficulty in connecting, the alternative number is [phone]. Note: If your concern is an emergency, please call 911. documented in this encounterAdena Pike Medical Center07-02-2024 History of Present illness Narrative* George Vieira MD - 04/01/2024 10:36 AM EDT Millie Dela Cruz is a 28 year old female who presents for problem visit. HPI: Patient presents with light vaginal bleeding. She denies pain or other complaints. 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 Thanks. Merry White MD [facility] Work Phone: 1(566) 434-956007-01-2024 Miscellaneous Notes* Telephone Encounter - Merry White [...] Cruz RN * Telephone Encounter - Merry White MD - 03/31/2024 9:53 AM EDT Can she come in today to discuss a plan? Dr. Wallace at 1050? Thanks. Merry White MD * Telephone Encounter - Zahra Baez RN - 03/31/2024 9:21 AM EDT Patient last seen on 03/18 for threatened . States she went to [facility] ER due to right sided pain. US [...] advise. Zahra Baez RN documented in this encounterAdena Pike [facility] Center07-01-2024 Telephone encounter Note * Telephone Encounter - iMnda Dela Cruz RN - 03/31/2024 10:16 AM EDT Patient called and states she is unable to come into office until tomorrow. States pain is mild andis now just intermittent cramping. Appointment given with KJ tomorrow. Is this ok? Minda Dela Cruz RN [facility]07-01-2024 Telephone encounter Note* Telephone Encounter - Merry White MD - 03/31/2024 9:53 AM EDT Can she come in today to discuss a plan? Dr. Wallace at 1050? Thanks. Merry White MD [facility]07-01-[facility] Telephone encounter Note* Telephone Encounter - Zahra Baez RN - 03/31/2024 9:21 AM EDT Patient last seen on 03/18 for threatened . States she went to [facility] ER due to right sided pain. US [...] she wipes. Please advise. Zahra Baez, RN [facility]06-28-[facility] Emergency department Note* Alexa Duvall, TRANSFORMER MAKER-CITRUS FRUIT PACKER - 03/28/2024 6:11 PM EDT Chief Complaint [...] HCG measurement is performed using the [employer] Access Immunoassay which detects intact HCG and free beta HCG subunit. This test is not indicated for use as a tumor marker. HCG testing is performed using a different test methodology at [facility] than other [facility]. Direct result comparison should only be made within the same method. URINALYSIS WITH REFLEX CULTURE AND MICROSCOPIC - Abnormal Color, Urine Light-Yellow Appearance, Urine Turbid (*) Specific [place], Urine 1.010 pH, Urine 6.5 Protein, Urine [...] Lacey Farias 03/28/2024 9:55 PM Dictation workstation: [id number] Medical Decision Making Amount and/or Complexity of Data Reviewed Labs: ordered. Radiology: ordered. ECG/medicine tests: ordered. EKG interpreted by myself shows ST with rate of 126. Normal axis. OR interval 150. QRS interval 82.QT interval 296. [...] be 7w3d. Recommended she follow-up with her COMMANDING OFFICER HOMICIDE SQUAD provider in 3 days for repeat evaluation [...] suspected miscarriage #2 UTI CASSY Pate 03/28/24 8909 CASSY Pate 03/28/24 7839 documented in this [facility] Work Phone: 1(565) 823-723706-28-2024 Physician Emergency department Note* CASSY Pate - [...] HCG measurement is performed using the [employer] Access Immunoassay which detects intact HCG and free beta HCG subunit. This test is not indicated for use as a tumor marker. HCG testing is performed using a different test methodology at [facility] than other [facility]. Direct result comparison should only be made within the same method. URINALYSIS WITH REFLEX CULTURE AND MICROSCOPIC - Abnormal Color, Urine Light-Yellow Appearance, Urine Turbid (*) Specific [place], Urine 1.010 pH, Urine 6.5 Protein, Urine [...] Lacey Farias 03/28/2024 9:55 PM Dictation workstation: [id number] Medical Decision Making Amount and/or Complexity of Data Reviewed Labs: ordered. Radiology: ordered. ECG/medicine tests: ordered. EKG interpreted by myself shows ST with rate of 126. Normal axis. OR interval 150. QRS interval 82.QT interval 296. [...] be 7w3d. 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 Omeprazole 40 [...] rescheduled Zahra Muniz MD documented in this encounterAdena Pike Medical Center06-17-2024 Telephone encounter Note * Telephone Encounter - Irene Mc APRN.CNM - 03/17/2024 1:59 PM EDT Can you please schedule patient for appointment when she returns and can discuss testing and management. Thanks, Irene Mc APRN.CNM [facility] Work Phone: 1(345) 945-648606-17-2024 Miscellaneous Notes* Telephone Encounter - Irene Mc [...] until tomorrow. Please advise. documented in this encounterAdena Pike Medical Center06-17-2024 Telephone encounter Note * Telephone Encounter - [...] not be home until tomorrow. Please advise. [facility]06-07-[facility] Telephone encounter Note* Telephone Encounter - Lali Aguiar RN - 03/07/2024 11:34 AM EDT Last weight mgmt appointment 02/06/24 and patient is now . See 03/06/24 mychart message encounter. Patient requested rx there. [facility]06-07-[facility] Miscellaneous Notes* Telephone Encounter - Lali Aguiar RN - 03/07/2024 11:34 AM EDT Last weight mgmt appointment 02/06/24 and patient is now . See 03/06/24 mychart message encounter. Patient requested rx there. documented in this encounterAdena Pike Medical Center05-08-2024 Instructions* Patient Instructions* Leona Enriquez APRN.CITRUS FRUIT PACKER - 02/06/2024 12:00 PM EDT Vitamin D3 [...] have designated appointment slots. documented in this encounterAdena Pike Medical Center05-08-2024 History of Present illness Narrative* Leona Enriquez [...] - egg scramble or egg bites from [employer] S - none L - 2-3 pm cheese stick with proschutto with pistachios/cashews/almonds and Chobani SF Solomon Islander yogurtor Triple Zero S - none D - 5 pm meat, small portion - tortilla if eating taco/mashed potato/sweet potato fries airfried, occasional vegetable f eating out or Eats out - Qatari chicken enchillada, rice & beans S - [...] RELIEF) 50 mcg/actuation nasal spray Use 1 [place] in each nostril once daily. 1 Bottle [...] (85.8 kg) LMP 10/21/2023 BMI 32.48 kg/m [employer] health data reviewed for past month. Resting [...] Follow up in 3 months Leona Enriquez APRN.CITRUS FRUIT PACKER Advanced Education from the Obesity Medicine Association Medical Decision Making: Problems: Moderate: 1+ chronic illnesses with change Risk: Moderate: Drug management and Moderate risk from testing/treatment Medical Decision Making Level: 4 - Moderate documented in this encounterAdena Pike Medical Center11-09-2023 Instructions* Patient Instructions* Leona Enriquez APRN.CNP - [...] FOR YOUR WEIGHT LOSS PLAN Per updated [place] state rules, initially, a one month supply [...] aware of the following statements per the [facility] pharmacy board rules. 1. Timely refills are [...] at or call local emergency services at 393. What other information should I know? Keep all appointments with your doctor and the laboratory. Do not let anyone else take your medication. Phentermine is a controlled substance. It is FDA approved for up to 3 months. Prescriptions may be refilled only a limited number of times. Keep a written list of all of your prescription and nonprescription (xuzq-ykq-gnjkulc) medicines, in addition to vitamins, minerals, or [...] make up for a missed one. Sources [facility] Consumer Medication Info: http://www.ncbi.nlm.nih.gov/pubmedhealth/PWY1057588/ AMA patient handouts: http://www.amaassn.org/ama1/pub/upload/mm/433/phrxsurgery.pdf Drugs.com: http://www.drugs.com/pro/phentermine.html - [...] and equals 21 g protein Beef, Chicken, Seaside, Pork, [place] 1 oz 7g Fish, Tuna [...] protein & 2 carb Protein AND carbs Beef/Seaside Jerky 1 oz dried 10-15g protein - [...] oz - 8g protein & 12g carb Solomon Islander yogurt Full Fat Solomon Islander Yogurt 1 cup - 20.4g protein & 9.1g carb 2% Solomon Islander Yogurt 1 cup - 22.7g protein & 9.1g carb 0% (fat-free) Solomon Islander Yogurt - 1 cup 24g protein & 9.3g carb :ratio, KETO Friendly Dairy Snack 1 single svg - 15g protein & 2g carb :ratio Protein 1 single svg - 25g protein & 8g carb Dannon Light + Fit 1 single csvg - 12g protein & 9g carb Two Good Lowfat [place] Islander Yogurt, [place], Lower Sugar - 12g protein & 2g carb Oikos Triple Zero Solomon Islander Nonfat Yogurt 1 single svg - 15g protein & 7g carb Cheese each oz Brie 5.9g protein & 0.1g carb Cheddar Cheese 7g protein & 0.4g carb Mozzarella Cheese 6.3g protein & 0.6g carb Brian Cheese 6.7g protein & 0.7g carb Parmesan Cheese 10g protein & 0.9g carb Cream Cheese 1.7g protein & 1.2g carb Feta 4g protein & 1.2g carb Dutch Cheese 7.6g protein & 1.5g carb Meier s Low Fat Cottage Cheese 1/2cup 12g protein & 4g carb Legumes Lentils cup 9g protein & 20g carb Veronica beans cup 7g protein & 20g carb Kidney, Black, Plessis, Cannellini beans cup 8g protein & 20g carb Soybeans 1/2 c 14g protein & 8.5g carb Peanut butter, natural 2 Tbsp 7-8g protein & 4g net carbs, 190 calories Gallant milk, unsweetened 8 oz 1g protein & 2g carb Soy milk 8 oz 3.5g protein & 1.6g carb Tofu 1/2 cup 10g protein & 2.3g carb Nuts and Seeds per oz Pumpkin Seeds - 6.9g protein & 5g carb Almonds - 5.9g protein & 6.1g carb Barton Seeds - 5.8g protein & 5.6g carb Pistachios - 5.8g protein & 7.8g carb Cashews - 5.1g protein & 9.2g carb Walnuts - 4.3g protein & 3.8g carb Hazelnuts - 4.2g protein & 4.7g carb Daniels Nuts - 4.0g protein & 3.4g carb Pecans - 2.6g protein & 3.9g carb Peanuts - 7g protein & 4.6g carb 30 High Protein Snack Ideas 1. Jerky 2. [place] mix without or minimal dried fruit 3. Seaside roll-ups 4. Solomon Islander yogurt 5. Veggies and yogurt dip 6. Tuna 7. Hard-boiled eggs 8. Peanut butter celery sticks 9. No-bake energy bites 10. Cheese slices/ Cheese Stick 11. Handful of almonds 12. Roasted chickpeas 13. Hummus and veggies 14. Cottage Cheese 15. Celery/fruit with peanut butter 16. Beef sticks (Grass-fed, natural ingredients) 17. Protein bars 18. Canned [place] 19. Abhay pudding 20. Homemade granola - [...] Cabbage Spinach Peppers Green beans Carrots Tomato [place] sprouts Cauliflower Lettuce Snap peas Broccoli [...] 4 tablespoons nut butter documented in this encounterAdena Pike Medical Center11-09-2023 History of Present illness Narrative* Leona Enriquez [...] but having some diarrhea since final increase [facility] nutrition consultation today Interval History Awake - 9-10 am coffee with 2 T milk each cup and has 2-3 cups over 1 hour. 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 1 Bottle 0 pseudoephedrine (SUDAFED) 30 mg tablet Take 1 tablet by mouth every 4 hours as needed. 30 tablet 0 Omeprazole 40 mg capsule Take 1 capsule by mouth once daily. (Patient not taking: Reported on 01/03/2019 ) 30 capsule 0 No current facility-administered medications for this visit. OCCUPATION Works from home [id number] Current Contraception: none Obesity ROS/ FHx GEN: [...] Follow up in 2 months Leona Enriquez APRN.CITRUS FRUIT PACKER Advanced Education from the Obesity Medicine Association Medical Decision Making: Problems: Moderate: 1+ chronic illnesses with change Risk: Moderate: Drug management and Moderate risk from testing/treatment Medical Decision Making Level: 4 - Moderate documented in this encounterAdena Pike Medical Center10-24-2023 Miscellaneous Notes* Telephone Encounter - Zahra Baez RN - 07/24/2023 10:59 AM EDT [facility] or [facility]? documented in this encounterAdena Pike Medical Center10-11-2023 History of Present illness Narrative* Leona Enriquez [...] L - 4 pm - 10 pc GameChanger MediaggIsonas, [place] Moteng Websiteouble and [email or web address].auken and medium Coke S - none D - 8:30 usually HelloFresh burgers, chicken and potatoes, tacos, pasta. S - not normally. Chips occasionally Fluids - coffee with a little milk, water, sweet tea with sugar, pop Bedtime - 4026-5042 Quality of diet: 24hr recall suggests unhealthy diet. Characterization of diet:Structured, excessive cravings, increased consumption of sugar sweetened beverages, and skip meals. Boat Wrapper of impaired eating habits:excessive hunger and lack [...] Diet/weight loss History: Past weight loss attempts? [employer] diets and health financial coach. Caloric restriction, Keto, MyFitnessPal, and Weight watchers Exercise: Regular exercise: no Strength/resistance exercise:no Barriers to regular exercise? no Work-related activity:Sedentary.works from home Gym Membership: yes Activity Tracker: yes 3-4000 steps/day OCCUPATION Works from home [id number] Current Contraception: none Obesity ROS/ FHx GEN: [...] intervention is the best and most appropriate buttermaker helper therapeutic option. - VITAMIN D 25 HYDROXY - INSULIN ASSAY BLOOD - HGB A1C - CBC - COMP METABOLIC PANEL - CONSULT TO NUTRITION THERAPY [facility] Whole food balanced protein low-carb [...] resistancetraining and cardiovascular exercise is the best prison plan. An overall goal of 150-200 minutesper [...] which included preparing to see the patient, [id number] patient care, completing clinical documentation, obtaining and/or reviewing separately obtained history, performing a medically appropriate examination, counseling and educating the pat ient/family/caregiver, and ordering medications, tests, or procedures. documented in this encounterAdena Pike Medical Center10-11-2023 Instructions* Patient Instructions* Leona Enriquez APRN.CNP - [...] it adds only a little benefit for prison weight loss success. However, exercise can have [...] that affects nearly one-third of the adult [place] population (approximately 60 million). The number of overweight and obese Americans has continued to increase since 1960, a trend that is not slowing down. Today, 64.5 percent of adult Americans (about 127 million) are categorized as being overweight or obese. Each year, obesity causes at least 300,000 excess deaths in the [place] and healthcare costs of [place] adults with obesity amount to approximately $100 [...] the gallbladder, breast, uterus, cervix, or ovaries https://my.[facility]/health/diseases/96547-ixkteh-pmecivuphr-hfdqtms-k ducation Sincerely, Vicky Shabazz MD, LE & [...] (nih.gov) Is metformin a wonder drug? - [facility] Common side effects of this medication include [...] if you feel well. documented in this encounterAdena Pike Medical Center09-06-2023 Miscellaneous Notes* Telephone Encounter - Araceli Medrano MD - 06/06/2023 6:41 PM EDT Recommend scheduling with AG or DM for weight loss management documented in this encounterAdena Pike Medical Center06-02-2022 History of Present illness Narrative* Araceli Medrano MD - 03/02/2022 9:21 AM EDT VIRTUAL VISIT PROGRESS NOTE This is a virtual visit using [employer] video visit. It required patient-provider interaction for [...] RELIEF) 50 mcg/actuation nasal spray Use 1 [place] in each nostril once daily. pseudoephedrine (SUDAFED) [...] which included preparing to see the patient, [id number] patient care, completing clinical documentation, obtaining and/or reviewing separately obtained history, counseling and educating the patient/family/caregiver and ordering medications, tests, or procedures Araceli Medrano DO documented in this encounterAdena Pike Medical Center05-04-2022 Instructions* Patient Instructions* Araceli Medrano MD - 02/01/2022 4:14 PM EDT Blood work on day 3 of your cycle Progesterone level to be drawn 7 days before the start of your next period documented in this encounterAdena Pike Medical Center05-04-2022 History of Present illness Narrative* Araceli Medrano [...] shortly after had heavy bleeding and SAB 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 pseudoephedrine (SUDAFED) [...] Low Araceli Medrano DO documented in this encounterAdena Pike [facility] CenterEvalunem[facility] [place] [facility]* Diagnosis DUB (dysfunctional uterine bleeding)- Primary Other disorder of menstruation and other abnormal bleeding from female genital tract Irregular periods Irregular menstrual cycle Class 3 severe obesity with body mass index (BMI) of 40.0 to 44.9 in adult, unspecified obesity type, unspecified whether serious comorbidity present (HCC) Female infertility Female infertility of unspecified origin [facility] [place] [facility]* Diagnosis DUB (dysfunctional uterine bleeding)- Primary Other disorder of menstruation and other abnormal bleeding from female genital tract documented [facility] this [facility] [place] [facility]* Diagnosis Class 3 severe obesity with body mass index (BMI) of 40.0 to 44.9 in adult, unspecified obesity type, unspecified whether serious comorbidity present (HCC)- Primary Desire for Unspecified procreative management PCOS (polycystic ovarian syndrome) Polycystic ovaries documented [facility] this encounter [facility] [place] [facility]* Diagnosis PCOS (polycystic ovarian syndrome)- Primary [...] serious comorbidity present documented in this encounter [facility] note* Diagnosis PCOS (polycystic ovarian syndrome)- Primary Polycystic ovaries Elevated LDL cholesterol level Pure hypercholesterolemia Class 2 obesity with body mass index (BMI) of 39.0 to 39.9 in adult, unspecified obesity type, unspecified whether serious comorbidity present documented in this encounter [facility] noteNo assessment information availableWWilson Memorial Hospital Work Phone: Evaluation note* Diagnosis PCOS (polycystic ovarian syndrome) Polycystic ovaries Class 2 obesity with body mass index (BMI) of 39.0 to 39.9 in adult, unspecified obesity type, unspecified whether serious comorbidity present documented in this encounter [facility] note* Diagnosis PCOS (polycystic ovarian syndrome) Polycystic ovaries Class 2 obesity with body mass index (BMI) of 39.0 to 39.9 in adult, unspecified obesity type, unspecified whether serious comorbidity present documented in this encounter [facility] note* Diagnosis PCOS (polycystic ovarian syndrome)- Primary Polycystic ovaries Elevated LDL cholesterol level Pure hypercholesterolemia Ocular migraine Other forms of migraine, without mention of intractable migraine without mention of status migrainosus Class 2 obesity with body mass index (BMI) of 39.0 to 39.9 in adult, unspecified obesity type, unspecified whether serious comorbidity present documented in this encounter [facility] note* Diagnosis PCOS (polycystic ovarian syndrome) Polycystic ovaries Class 2 obesity with body mass index (BMI) of 39.0 to 39.9 in adult, unspecified obesity type, unspecified whether serious comorbidity present documented in this encounter [facility] note* Diagnosis Missed menses- Primary Absence of menstruation Encounter for BCP ( control pills) initial prescription General counseling for prescription of oral contraceptives Threatened Threatened , unspecified as to episode of care documented in this encounter [facility] note* Diagnosis Ectopic , unspecified location, unspecified whether intrauterine present- Primary documented in this encounter [facility] note* Diagnosis Ectopic without intrauterine , unspecified location- Primary [facility] [place] [facility]* Diagnosis Ectopic with intrauterine , unspecified location- Primary [facility] [place] [facility]* Diagnosis PCOS (polycystic ovarian syndrome) Polycystic ovaries Elevated LDL cholesterol level Pure hypercholesterolemia Class 2 obesity with body mass index (BMI) of 39.0 to 39.9 in adult, unspecified obesity type, unspecified whether serious comorbidity present [facility] [place] [facility]* Diagnosis PCOS (polycystic ovarian syndrome)- Primary Polycystic ovaries Elevated LDL cholesterol level Pure hypercholesterolemia Ocular migraine Other forms of migraine, without mention of intractable migraine without mention of status migrainosus Class 2 obesity with body mass index (BMI) of 39.0 to 39.9 in adult, unspecified obesity type, unspecified whether serious comorbidity present [facility] [place] [facility]* Diagnosis Acute cystitis with hematuria- Primary Vaginal bleeding in ([facility]) documented in this encounter [facility] Work Phone: Evaluation note* Diagnosis Hx of ectopic - Primary Personal history of other genital system and obstetric disorders documented in this encounter [facility] note* Diagnosis Spotting in early - Primary Spotting complicating , antepartum condition or complication [facility] [place] [facility]* Diagnosis with uncertain dates in first trimester- Primary History of ectopic Personal history of other genital system and obstetric disorders documented [facility] [place] [facility]* Diagnosis Early stage of - Primary state, incidental Insomnia, unspecified type related nausea, antepartum Mild hyperemesis gravidarum, antepartum Migraine without status migrainosus, not intractable, unspecified migraine type documented [facility] [place] [facility]* Diagnosis Hx of ectopic Personal history of other genital system and obstetric disorders documented [facility] [place] [facility]* Diagnosis PCOS (polycystic ovarian syndrome) Polycystic ovaries Class 2 obesity with body mass index (BMI) of 39.0 to 39.9 in adult, unspecified obesity type, unspecified whether serious comorbidity present documented in this encounter [facility] note* Diagnosis Encounter for supervision of [...] and obstetric disorders documented [facility] [place] [facility]* Diagnosis Encounter for supervision of high risk in first trimester, antepartum- Primary documented [facility] this [facility] [place] [facility]* Diagnosis Encounter for screening for malformation using ultrasound- Primary 12 weeks gestation of state, incidental documented in this [facility] [place] [facility]* Diagnosis Encounter for supervision of high risk in first trimester, antepartum- Primary 12 weeks gestation of state, incidental Heartburn during in first trimester documented in this [facility] [place] [facility]* Diagnosis Family history of defect- Primary Family history of congenital anomalies Encounter of female for testing for genetic disease carrier status for procreative management Testing of female for genetic disease carrier status documented in this [facility] [place] [facility]* Diagnosis 16 weeks gestation of (HCC)- Primary state, incidental Supervision of high risk in second trimester ([facility]) Unspecified high-risk documented in this [facility] [place] [facility]* Diagnosis Supervision of high risk in [...] CENTER) documented in this [facility] [place] [facility]* Diagnosis Encounter for anatomic survey ([facility])- Primary Encounter for anatomic survey 20 weeks gestation of ([facility]) state, incidental Obesity affecting in second trimester, unspecified obesity type ([facility]) documented in [facility] [place] [facility]* Diagnosis Supervision of high risk in [...] CENTER) documented in [facility] [place] [facility]* Diagnosis PCOS (polycystic ovarian syndrome) Polycystic ovaries Elevated LDL cholesterol level Pure hypercholesterolemia Class 2 obesity with body mass index (BMI) of 39.0 to 39.9 in adult, unspecified obesity type, unspecified whether serious comorbidity present documented [facility] [place] [facility]* Diagnosis Supervision of high risk in second trimester (HCC)- Primary Unspecified high-risk 27 weeks gestation of (HCC) state, incidental Obesity affecting in second trimester, unspecified obesity type (HCC) Dizziness Dizziness and giddiness Marginal insertion of umbilical cord affecting management of mother (HCC) Rubella non-immune status, antepartum ([facility]) Other specified complication, antepartum documented [facility] [place] [facility]* Diagnosis 28 weeks gestation of (HCC)- [...] second trimester (HCC) documented in this encounter [facility] note* Diagnosis 28 weeks gestation of [...] Other abnormal glucose documented in this encounter [facility] note* Diagnosis 28 weeks gestation of [...] trimester (HCC)- Primary documented in this encounter [facility] note* Diagnosis 28 weeks gestation of [...] [facility]) documented in this encounter [facility] note* Diagnosis 28 weeks gestation of [...] CENTER) state, incidental documented in this encounter [facility] note* Diagnosis 28 weeks gestation of [...] unspecified single disease documented in this encounter [facility] note* Diagnosis 28 weeks gestation of [...] [facility]) documented in this [facility] [place] [facility]* Diagnosis 28 weeks gestation of (HCC)- [...] [facility]) [facility]* Diagnosis 28 weeks gestation of (HCC)- [...] STREPTOCOCCUS BY PCR documented in this encounter [facility] note* Diagnosis 28 weeks gestation of [...] [facility]) documented in this encounter [facility] note* Diagnosis 28 weeks gestation of [...] (HCC) state, incidental documented in this encounter [facility] [place] [facility]* Diagnosis 28 weeks gestation of (HCC)- [...] OB DIP B/O documented in this encounter [facility] note* Diagnosis 28 weeks gestation of [...] [facility]) documented in this encounter [facility] note* Diagnosis 28 weeks gestation of [...] (HCC) Unspecified high-risk documented in this encounter [facility] Author Nicolette Bobo [facility] Note Date/Time May 06, 2025 6:0 6pm [facility] Medical Records Department [address] [place] [address] OB Triage Physician Note 05/06/25 1744 MR#: [id number] Acct: [id number] Name: MILLIE WATKINS Rep #:[id number] : 1995 29 From: Nicolette Bobo CNM PCP: Care Physician,No Primary Status :REG CLI Y Location: [address] HPI - General HPI Narrative MILLIE WATKINS, is a 29 F who presents to triage with elevated blood pressure at home. Patient called into office because she had bought a blood pressure cuff and BP was elevated to 143/93, 180/121. Patient reports a headache that radiates behind her eyes. RN recommended patient come to triage. [facility] Home Medications ?Medication ?Instructions ?Recorded ?Last Taken ?Type [id number] 05/06/25 Unknown His tory aspirin 81mg [...] Dr. Shabazz notified and of A&P 05/06/25 2684 <Electronically signed by Nicolette NARANJO> Date _ Nicolette Bobo CNM Cosigner Signature (if applicable): Date CC: EUGENIA Bobo; No Primary Care Physician ~ Signed ADDENDUM by EUGENIA Bobo on 05/06/25 at 1806 Addendum Patient VIRGIL 06/14/25 34.3 days gestation 05/06/25 1806 <Electronically signed by Nicolette NARANJO> Date _ Nicolette Bobo CNM cc: EUGENIA Bobo; No Primary Care Physician ~* Signed [facility] Work Phone: Hospital Discharge instructions* Attachments The following attachments cannot be sent through Care Everywhere. * Bleeding in Early ED (Burmese) * Urinary Tract Infection, Adult ED (Burmese) [facility] Work Phone: Hospital Discharge instructionsAdditional Instructions Keep your scheduled appt 05/07/25.[facility] Work Phone: Reason for referral (narrative)* Diagnostic Procedure Only (Routine) - Authorized Specialty Diagnoses / Procedures Referred By Selene hankins Referred To Contact [facility] Diagnoses DUB (dysfunctional uterine bleeding) Irregular periods Class 3 severe obesity with body mass index (BMI) of 40.0 to 44.9 in adult, unspecified obesity type, unspecified whether serious comorbidity present ([facility]) Procedures PELVIC US WHI US PELVIC NONOBSTETRIC REAL-TIME IMAGE COMPLETE Araceli Medrano MD [address] [place] [address] [facility] [address] [place] [id number] Referral ID Status Reason Start Date Expiration Date Visits Requested Visits Authorized [id number] Authorized Auto-Generat ed Referral 02/01/2022 02/01/2023 1 [...] TRANSVAGINAL Araceli Medrano MD [address] [place] [address] Us Imaging Referral ID Status Reason Start Date Expiration Date Visits Requested Visits Authorized [id number] Pending Review Auto-Generat ed Referral 02/01/2022 03/03/2023 1 1 T [facility] for referral (narrative)* Consultation (Routine) - Authorized Specialty Diagnoses / Procedures Referred By Contac t Referred To Contact Obstetrics and Gynecology Diagnoses Vaginal bleeding in ([facility]) Alexa Duvall, [employer] [address] [address] Referral ID Status Reason Start Date Expiration Date Visits Requested Visits Authorized [id number] Authorized Specialty Services Required 03/28/2024 03/28/2025 1 1 [facility] Work Phone: [facility] for referral (narrative)* Diagnostic Procedure Only (Routine) - New Request Specialty Diagnoses / Procedures Referred By Contac t Referred To Contact [facility] Diagnoses Hx of ectopic Procedures OBSTETRIC ULTRASOUND WHI US PREG UTERUS AFTER 1ST TRIMEST GESTATION George Vieira MD [address] [place] [address] [facility] [address] [place] [address] Referral ID Status Reason Start Date Expiration Date Visits Requested Visits Authorized [id number] New Request Auto-Generat ed Referral 10/07/2024 10/07/2025 1 1 [facility] ([facility] Diagnostic Procedure Only (Routine) - Authorized Specialty Diagnoses / Procedures Referred By Contac t Referred To Contact [facility] Diagnoses Encounter for supervision of high risk in first trimester, antepartum Procedures OBSTETRIC ULTRASOUND WHI US PREG UTERUS AFTER 1ST TRIMEST GESTATION Marlene Jimenez APRN.[employer] [address] [place] [address] [facility] [address] [place] [address] Referral ID Status Reason Start Date Expiration Date Visits Requested Visits Authorized [id number] Authorized Auto-Generat ed Referral 10/31/2024 10/31/2025 1 1 * Diagnostic Procedure Only (Routine) - Authorized Specialty Diagnoses / Procedures Referred By Contac t Referred To Contact [facility] Diagnoses Encounter for supervision of high risk in first trimester, antepartum Procedures OBSTETRIC ULTRASOUND WHI US PREG UTERUS AFTER 1ST TRIMEST GESTATION Mralene Jimenez APRN.CNP [address] [place] [address] [facility] [address] [facility] [place] [address] Referral ID Status Reason Start Date Expiration Date Visits Requested Visits Authorized [id number] Authorized Auto-Generat ed Referral 10/31/2024 10/31/2025 1 1 [facility])No reason for referral information [facility] Work Phone: Reason for visit Narrative* Diagnostic Procedure Only (Routine) - Closed Specialty Diagnoses / Procedures Referred By Contac t Referred To Contact [facility] Diagnoses Hx of ectopic Procedures OBSTETRIC ULTRASOUND WHI US PREG UTERUS AFTER 1ST TRIMEST GESTATION George Vieira MD [address] [place] [address] [facility] [address] [facility] [place] [address] Referral ID Status Reason Start Date Expiration Date V isits Requested Visits Authorized [id number] Closed Auto-Generate d Referral 10/07/2024 10/07/2025 1 1 [facility] Summary Purpose Family History No Family History [...] Desire for Procedures CONSULT BARIATRIC/METAB[facility]IC [facility] OFFICE/OUTPATIENT [facility] 60-74 MINUTES Araceli Medrano MD [address] [place] [address] Referral ID Status Reason Start Date Expiration Date Visits Requested Visits Authorized [id number] Authorized PCP Requested Referral 03/02/2022 03/02/2023 1 1 Specialty Diagnoses / Procedures Referred By Contac t Referred To Contact Nutrition Diagnoses Class 3 severe obesity with body mass index (BMI) of 40.0 to 44.9 in adult, unspecified obesity type, unspecified whether serious comorbidity present (HCC) Desire for Procedures CONSULT TO NUTRITION THERAPY OFFICE/OUTPATIENT [facility] 60-74 MINUTES Araceli Medrano MD [address] [place] [address] Referral ID Status Reason Start Date Expiration Date Visits Requested Visits Authorized [id number] Authorized PCP Requested Referral 03/02/2022 03/02/2023 1 1 Specialty Diagnoses / Procedures Referred By Contac t Referred To Contact Nutrition Diagnoses PCOS (polycystic ovarian syndrome) Class 2 obesity with body mass index (BMI) of 39.0 to 39.9 in adult, unspecified obesity type, unspecified whether serious comorbidity present Procedures CONSULT TO NUTRITION THERAPY Leona Enriquez APRN.[employer] [address] [place] [address] Referral ID Status Reason Start Date Expiration Date Visits Requested Visits Authorized [id number] Ref Not Required PCP Requested Referral 3 [...] section and content) DATE CREATED AUTHOR 08/14/2021 [facility] DATE CREATED AUTHOR AUTHOR'S ORGANIZ ATION 04/05/2024 [facility] DATE CREATED AUTHOR AUTHOR'S ORGANIZ ATION 04/22/2024 [facility] DATE CREATED AUTHOR AUTHOR'S ORGANIZ ATION 04/03/2025 [facility] DATE CREATED AUTHOR AUTHOR'S ORGANIZ ATION 05/24/2025 [facility] DATE CREATED AUTHOR AUTHOR'S ORGANIZ ATION 05/24/2025 [facility] Source Comments (unrecognize d section and content) In the event this informatio n is protected by the Federal Confidentiality of Alcohol and Drug Abuse Patient Records regulations: The Federal rules restrict any use of the information to criminally investigate or prosecute any alcohol or drug abuse patient.[facility] CenterIn the event this information is protected by the Federal Confidentiality of Alcohol and Drug Abuse Patient Records regulations: The Federal rules restrict any use of the information to criminally investigate or prosecute any alcohol or drug abuse patient.[facility] CenterIn the event this information is protected by the Federal Confidentiality of Alcohol and Drug Abuse Patient Records regulations: The Federal rules restrict any use of the information to criminally investigate or prosecute any alcohol or drug abuse patient.[facility] CenterIn the event this information is protected by the Federal Confidentiality of Alcohol and Drug Abuse Patient Records regulations: The Federal rules restrict any use of the information to criminally investigate or prosecute any alcohol or drug abuse patient.[facility] CenterIn the event this information is protected by the Federal Confidentiality of Alcohol and Drug Abuse Patient Records regulations: The Federal rules restrict any use of the information to criminally investigate or prosecute any alcohol or drug abuse patient.[facility] CenterIn the event this information is protected by the Federal Confidentiality of Alcohol and Drug Abuse Patient Records regulations: The Federal rules restrict any use of the information to criminally investigate or prosecute any alcohol or drug abuse patient.[facility] CenterIn the event this information is protected by the Federal Confidentiality of Alcohol and Drug Abuse Patient Records regulations: The Federal rules restrict any use of the information to criminally investigate or prosecute any alcohol or drug abuse patient.[facility] CenterIn the event this information is protected by the Federal Confidentiality of Alcohol and Drug Abuse Patient Records regulations: The Federal rules restrict any use of the information to criminally investigate or prosecute any alcohol or drug abuse patient.[facility] the event this information is protected by the Federal Confidentiality of Alcohol and Drug Abuse Patient Records regulations: The Federal rules restrict any use of the information to criminally investigate or prosecute any alcohol or drug abuse patient.[facility] CenterIn the event this information is protected by the Federal Confidentiality of Alcohol and Drug Abuse Patient Records regulations: The Federal rules restrict any use of the information to criminally investigate or prosecute any alcohol or drug abuse patient.[facility] CenterIn the event this information is protected by [...] or prosecute any alcohol or drug abuse patient.[facility] CenterIn the event this information is protected by the Federal Confidentiality of Alcohol and Drug Abuse Patient Records regulations: The Federal rules restrict any use of the information to criminally investigate or prosecute any alcohol or drug abuse patient.[facility] CenterIn the event this information is protected by the Federal Confidentiality of Alcohol and Drug Abuse Patient Records regulations: The Federal rules restrict any use of the information to criminally investigate or prosecute any alcohol or drug abuse patient.[facility] CenterIn the event this information is protected by the Federal Confidentiality of Alcohol and Drug Abuse Patient Records regulations: The Federal rules restrict any use of the information to criminally investigate or prosecute any alcohol or drug abuse patient.[facility] CenterIn the event this information is protected by the Federal Confidentiality of Alcohol and Drug Abuse Patient Records regulations: The Federal rules restrict any use of the information to criminally investigate or prosecute any alcohol or drug abuse patient.[facility] CenterIn the event this information is protected by the Federal Confidentiality of Alcohol and Drug Abuse Patient Records regulations: The Federal rules restrict any use of the information to criminally investigate or prosecute any alcohol or drug abuse patient.[facility] CenterIn the event this information is protected by the Federal Confidentiality of Alcohol and Drug Abuse Patient Records regulations: The Federal rules restrict any use of the information to criminally investigate or prosecute any alcohol or drug abuse patient.[facility] CenterIn the event this information is protected by the Federal Confidentiality of Alcohol and Drug Abuse Patient Records regulations: The Federal rules restrict any use of the information to criminally investigate or prosecute any alcohol or drug abuse patient.[facility] CenterIn the event this information is protected by the Federal Confidentiality of Alcohol and Drug Abuse Patient Records regulations: The Federal rules restrict any use of the information to criminally investigate or prosecute any alcohol or drug abuse patient.[facility] CenterIn the event this information is protected by the Federal Confidentiality of Alcohol and Drug Abuse Patient Records regulations: The Federal rules restrict any use of the information to criminally investigate or prosecute any alcohol or drug abuse patient.[facility] CenterIn the event this information is protected by the Federal Confidentiality of Alcohol and Drug Abuse Patient Records regulations: The Federal rules restrict any use of the information to criminally investigate or prosecute any alcohol or drug abuse patient.[facility] CenterIn the event this information is protected by the Federal Confidentiality of Alcohol and Drug Abuse Patient Records regulations: The Federal rules restrict any use of the information to criminally investigate or prosecute any alcohol or drug abuse patient.[facility] CenterIn the event this information is protected by the Federal Confidentiality of Alcohol and Drug Abuse Patient Records regulations: The Federal rules restrict any use of the information to criminally investigate or prosecute any alcohol or drug abuse patient.[facility] CenterIn the event this information is protected by the Federal Confidentiality of Alcohol and Drug Abuse Patient Records regulations: The Federal rules restrict any use of the information to criminally investigate or prosecute any alcohol or drug abuse patient.[facility] CenterIn the event this information is protected by the Federal Confidentiality of Alcohol and Drug Abuse Patient Records regulations: The Federal rules restrict any use of the information to criminally investigate or prosecute any alcohol or drug abuse patient.[facility] CenterIn the event this information is protected by the Federal Confidentiality of Alcohol and Drug Abuse Patient Records regulations: The Federal rules restrict any use of the information to criminally investigate or prosecute any alcohol or drug abuse patient.[facility] CenterIn the event this information is protected by the Federal Confidentiality of Alcohol and Drug Abuse Patient Records regulations: The Federal rules restrict any use of the information to criminally investigate or prosecute any alcohol or drug abuse patient.[facility] CenterIn the event this information is protected by the Federal Confidentiality of Alcohol and Drug Abuse Patient Records regulations: The Federal rules restrict any use of the information to criminally investigate or prosecute any alcohol or drug abuse patient.[facility] CenterIn the event this information is protected by the Federal Confidentiality of Alcohol and Drug Abuse Patient Records regulations: The Federal rules restrict any use of the information to criminally investigate or prosecute any alcohol or drug abuse patient.[facility] CenterIn the event this information is protected by the Federal Confidentiality of Alcohol and Drug Abuse Patient Records regulations: The Federal rules restrict any use of the information to criminally investigate or prosecute any alcohol or drug abuse patient.[facility] CenterIn the event this information is protected by the Federal Confidentiality of Alcohol and Drug Abuse Patient Records regulations: The Federal rules restrict any use of the information to criminally investigate or prosecute any alcohol or drug abuse patient.[facility] CenterIn the event this information is protected by the Federal Confidentiality of Alcohol and Drug Abuse Patient Records regulations: The Federal rules restrict any use of the information to criminally investigate or prosecute any alcohol or drug abuse patient.[facility] CenterIn the event this information is protected by the Federal Confidentiality of Alcohol and Drug Abuse Patient Records regulations: The Federal rules restrict any use of the information to criminally investigate or prosecute any alcohol or drug abuse patient.[facility] CenterIn the event this information is protected by the Federal Confidentiality of Alcohol and Drug Abuse Patient Records regulations: The Federal rules restrict any use of the information to criminally investigate or prosecute any alcohol or drug abuse patient.[facility] CenterIn the event this information is protected by the Federal Confidentiality of Alcohol and Drug Abuse Patient Records regulations: The Federal rules restrict any use of the information to criminally investigate or prosecute any alcohol or drug abuse patient.[facility] CenterIn the event this information is protected by the Federal Confidentiality of Alcohol and Drug Abuse Patient Records regulations: The Federal rules restrict any use of the information to criminally investigate or prosecute any alcohol or drug abuse patient.[facility] CenterIn the event this information is protected by the Federal Confidentiality of Alcohol and Drug Abuse Patient Records regulations: The Federal rules restrict any use of the information to criminally investigate or prosecute any alcohol or drug abuse patient.[facility] CenterIn the event this information is protected by the Federal Confidentiality of Alcohol and Drug Abuse Patient Records regulations: The Federal rules restrict any use of the information to criminally investigate or prosecute any alcohol or drug abuse patient.[facility] CenterIn the event this information is protected by the Federal Confidentiality of Alcohol and Drug Abuse Patient Records regulations: The Federal rules restrict any use of the information to criminally investigate or prosecute any alcohol or drug abuse patient.[facility] CenterIn the event this information is protected by the Federal Confidentiality of Alcohol and Drug Abuse Patient Records regulations: The Federal rules restrict any use of the information to criminally investigate or prosecute any alcohol or drug abuse patient.[facility] CenterIn the event this information is protected by the Federal Confidentiality of Alcohol and Drug Abuse Patient Records regulations: The Federal rules restrict any use of the information to criminally investigate or prosecute any alcohol or drug abuse patient.[facility] CenterIn the event this information is protected by the Federal Confidentiality of Alcohol and Drug Abuse Patient Records regulations: The Federal rules restrict any use of the information to criminally investigate or prosecute any alcohol or drug abuse patient.[facility] CenterIn the event this information is protected by the Federal Confidentiality of Alcohol and Drug Abuse Patient Records regulations: The Federal rules restrict any use of the information to criminally investigate or prosecute any alcohol or drug abuse patient.[facility] CenterIn the event this information is protected by the Federal Confidentiality of Alcohol and Drug Abuse Patient Records regulations: The Federal rules restrict any use of the information to criminally investigate or prosecute any alcohol or drug abuse patient.[facility] CenterIn the event this information is protected by the Federal Confidentiality of Alcohol and Drug Abuse Patient Records regulations: The Federal rules restrict any use of the information to criminally investigate or prosecute any alcohol or drug abuse patient.[facility] CenterIn the event this information is protected by the Federal Confidentiality of Alcohol and Drug Abuse Patient Records regulations: The Federal rules restrict any use of the information to criminally investigate or prosecute any alcohol or drug abuse patient.[facility] CenterIn the event this information is protected by the Federal Confidentiality of Alcohol and Drug Abuse Patient Records regulations: The Federal rules restrict any use of the information to criminally investigate or prosecute any alcohol or drug abuse patient.[facility] CenterIn the event this information is protected by the Federal Confidentiality of Alcohol and Drug Abuse Patient Records regulations: The Federal rules restrict any use of the information to criminally investigate or prosecute any alcohol or drug abuse patient.[facility] CenterIn the event this information is protected by the Federal Confidentiality of Alcohol and Drug Abuse Patient Records regulations: The Federal rules restrict any use of the information to criminally investigate or prosecute any alcohol or drug abuse patient.[facility] CenterIn the event this information is protected by the Federal Confidentiality of Alcohol and Drug Abuse Patient Records regulations: The Federal rules restrict any use of the information to criminally investigate or prosecute any alcohol or drug abuse patient.[facility] CenterIn the event this information is protected by the Federal Confidentiality of Alcohol and Drug Abuse Patient Records regulations: The Federal rules restrict any use of the information to criminally investigate or prosecute any alcohol or drug abuse patient.[facility] CenterIn the event this information is protected by the Federal Confidentiality of Alcohol and Drug Abuse Patient Records regulations: The Federal rules restrict any use of the information to criminally investigate or prosecute any alcohol or drug abuse patient.[facility] CenterIn the event this information is protected by the Federal Confidentiality of Alcohol and Drug Abuse Patient Records regulations: The Federal rules restrict any use of the information to criminally investigate or prosecute any alcohol or drug abuse patient.[facility] CenterIn the event this information is protected by the Federal Confidentiality of Alcohol and Drug Abuse Patient Records regulations: The Federal rules restrict any use of the information to criminally investigate or prosecute any alcohol or drug abuse patient.[facility] CenterIn the event this information is protected by the Federal Confidentiality of Alcohol and Drug Abuse Patient Records regulations: The Federal rules restrict any use of the information to criminally investigate or prosecute any alcohol or drug abuse patient.[facility] CenterIn the event this information is protected by the Federal Confidentiality of Alcohol and Drug Abuse Patient Records regulations: The Federal rules restrict any use of the information to criminally investigate or prosecute any alcohol or drug abuse patient.[facility] CenterIn the event this information is protected by the Federal Confidentiality of Alcohol and Drug Abuse Patient Records regulations: The Federal rules restrict any use of the information to criminally investigate or prosecute any alcohol or drug abuse patient.[facility] the event this information is protected by the Federal Confidentiality of Alcohol and Drug Abuse Patient Records regulations: The Federal rules restrict any use of the information to criminally investigate or prosecute any alcohol or drug abuse patient.[facility] CenterIn the event this information is protected by the Federal Confidentiality of Alcohol and Drug Abuse Patient Records regulations: The Federal rules restrict any use of the information to criminally investigate or prosecute any alcohol or drug abuse patient.[facility] CenterIn the event this information is protected by [...] or prosecute any alcohol or drug abuse patient.[facility] CenterIn the event this information is protected by the Federal Confidentiality of Alcohol and Drug Abuse Patient Records regulations: The Federal rules restrict any use of the information to criminally investigate or prosecute any alcohol or drug abuse patient.[facility] CenterIn the event this information is protected by the Federal Confidentiality of Alcohol and Drug Abuse Patient Records regulations: The Federal rules restrict any use of the information to criminally investigate or prosecute any alcohol or drug abuse patient.[facility] CenterIn the event this information is protected by the Federal Confidentiality of Alcohol and Drug Abuse Patient Records regulations: The Federal rules restrict any use of the information to criminally investigate or prosecute any alcohol or drug abuse patient.[facility] CenterIn the event this information is protected by the Federal Confidentiality of Alcohol and Drug Abuse Patient Records regulations: The Federal rules restrict any use of the information to criminally investigate or prosecute any alcohol or drug abuse patient.[facility] CenterIn the event this information is protected by the Federal Confidentiality of Alcohol and Drug Abuse Patient Records regulations: The Federal rules restrict any use of the information to criminally investigate or prosecute any alcohol or drug abuse patient.[facility] CenterIn the event this information is protected by the Federal Confidentiality of Alcohol and Drug Abuse Patient Records regulations: The Federal rules restrict any use of the information to criminally investigate or prosecute any alcohol or drug abuse patient.[facility] CenterIn the event this information is protected by the Federal Confidentiality of Alcohol and Drug Abuse Patient Records regulations: The Federal rules restrict any use of the information to criminally investigate or prosecute any alcohol or drug abuse patient.[facility] CenterIn the event this information is protected by the Federal Confidentiality of Alcohol and Drug Abuse Patient Records regulations: The Federal rules restrict any use of the information to criminally investigate or prosecute any alcohol or drug abuse patient.[facility] CenterIn the event this information is protected by the Federal Confidentiality of Alcohol and Drug Abuse Patient Records regulations: The Federal rules restrict any use of the information to criminally investigate or prosecute any alcohol or drug abuse patient.[facility] Reason for Visit (unrecogniz ed section and [...] HCG--also c/o some dizziness today--M1 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 [address] Phone: tel: fax: [facility] [address] [place] [phone] Referral ID Status Reason Start Date Expiration Date V isits Requested Visits Authorized [id number] Closed Auto-Generate d Referral 10/31/2024 10/31/2025 1 1 Reason Comments Care Specialty Diagnoses / Procedures Referred By Selene hankins Referred To Contact Diagnoses Family history of genetic disorder History of Hirschsprung disease Procedures CONSULT TO MEDICAL GENETICS - MEDICAL GENETICS COUNSELING EACH 30 MINUTES Marlene Jimenez APRN.CNP [address] [place] [address] Phone: tel: fax: Genetic [address] [phone] Referral ID Status Reason Start Date Expiration Date Visits Requested Visits Authorized [id number] Pending Review PCP Requested Referral Auto-Generate d Referral 11/05/2024 11/05/2025 1 1 Reason Onset Date Comments Care 12/31/2024 Reason Onset Date Comments Care 01/28/2025 Specialty Diagnoses / Procedures Referred By Selene hankins Referred To Contact [facility] Diagnoses Encounter for supervision of high risk in first trimester, antepartum (HCC) Procedures OBSTETRIC ULTRASOUND WHI US PREG UTERUS AFTER 1ST TRIMEST GESTATION Marlene Jimenez APRN.CNP [address] [place] [address] Phone: tel: fax: [address] [phone] Referral ID Status Reason Start Date Expiration Date V isits Requested Visits Authorized [id number] Closed Auto-Generate d Referral 10/31/2024 10/31/2025 1 [...] DSME MEDICAL NUTRITION ASSMT&IVNTJ INDIV EACH 15 [place] MEDICAL NUTRITION ASSMT&IVNTJ INDIV EACH 15 [place] MEDICAL NUTRITION ASSMT&IVNTJ INDIV EACH 15 [place] MEDICAL NUTRITION ASSMT&IVNTJ INDIV EACH 15 [place] Nicolette Bobo APRN.MARCELLA [address] [place] [address] Phone: tel: fax: Referral ID Status Reason Start Date Expiration Date V isits Requested Visits Authorized [id number] Closed PCP Requested Referral 03/27/2025 03/27/2026 1 1 Reason Comments Patient Update Specialty Diagnoses / Procedures Referred By Contac t Referred To Contact [facility] Diagnoses GDM, class A1 (HCC) Procedures OBSTETRIC ULTRASOUND WHI US PREG UTERUS AFTER 1ST TRIMEST GESTATION Nicolette Bobo APRN.EUGENIA [address] [place] [address] Phone: tel: fax: [facility] [address] [place] [address] Referral ID Status Reason Start Date Expiration Date V isits Requested Visits Authorized [id number] Closed Auto-Generate d Referral 03/27/2025 03/27/2026 5 1 Reason Comments 24 hour Urine Reason Onset Date Comments Care 04/07/2025 Reason Onset Date Comments Care 04/21/2025 Reason Onset Date Comments Care 04/27/2025 Reason Onset Date Comments Care 05/12/2025 Reason Comments OB Elevated BP Reason Onset Date Comments Care 05/15/2025 Specialty Diagnoses / Procedures Referred By Contac t Referred To Contact [facility] Diagnoses Supervision of high risk in third trimester (HCC) Insulin controlled gestational diabetes mellitus (GDM) in third trimester ([facility]) Obesity affecting in third trimester, unspecified obesity type ([facility]) 34 weeks gestation of ([facility]) Procedures OBSTETRIC ULTRASOUND WHI US PREG UTERUS AFTER 1ST TRIMEST GESTATION Merry White MD [address] [place] [address] Phone: tel: fax: [address] [phone] Referral ID Status Reason Start Date Expiration Date V isits Requested Visits Authorized [id number] Closed Auto-Generate d Referral 05/07/2025 05/07/2026 1 1 Reason Onset Date Comments Care 05/19/2025 Specialty Diagnoses / Procedures Referred By Contac t Referred To Contact [facility] Diagnoses Obesity affecting in second trimester, unspecified obesity type ([facility]) Supervision of other high risk pregnancies, third trimester ([facility]) Marginal insertion of umbilical cord affecting management of mother in third trimester ([facility]) Procedures OBSTETRIC ULTRASOUND WHI US PREG UTERUS AFTER 1ST TRIMEST GESTATION Merry White MD [address] [place] [address] Phone: tel: fax:[phone] [address] Referral ID Status Reason Start Date Expiration Date V isits Requested Visits Authorized [id number] Closed Auto-Generate d Referral 03/25/2025 03/25/2026 2 1 Reason Onset Date Comments Care 05/22/2025 Care Teams (unrecognized sec tion and content) Team Status: Active Member Role Status Dates No Primary Care Physician Primary Care Provider Active Team Status: Inactive Member Role Status Dates Leona Enriquez NP, [employer]W OPERATOR-C Attending Provider, Referring Pro vider Active No [...] BE BASED ON THE PRIMARY CLINICAL RECORDS. [facility]. provides no warranty or guarantee of the accuracy or completeness of information in this document.
[2025-05-24 19:44] LABS: Hematocrit 34.1 % (37-47); Hemoglobin 11.6 g/dL (12.0-15.0); Immature Granulocytes Count 0.030 X10^3/uL (0.0-0.0); Mean Corp Hgb Conc 34.0 g/dL (32-36); Mean Corpuscular Volume 88.3 fL (81-99); Mean Platelet Vol. 11.0 fl (6.2-12.0); NRBC Flagged by Analyzer 0 % (0-5); Platelet Count 269 K/mm3 (150-450); RBC Distribution Width CV 13.1 % (11.6-14.6); RBC Distribution Width SD 42.2 fl (35.1-43.9); Red Blood Count 3.86 M/mm3 (4.2-5.4); White Blood Count 10.4 K/mm3 (4.4-11.0)
--- NOTE | 2025-05-24 19:53 | HP.PCM.OB_ITS ---
HPI - General General Date of Admission: 05/24/25 HPI Narrative ANAM HEALY, is a 29 F at 37 weeks gestation who presents for scheduled induction of labor for GDM A2, GHTN, and Obesity. Maternal Data Information VIRGIL Calculator Estimated Delivery Date Method Current WG Current Estimate 06/14/25 Manual 37w 0d PFSH PFS Medical History (Updated 05/24/25 @ 20:04 by Nicolette Bobo CNM) Asthma PCOS (polycystic ovarian syndrome) Gestational diabetes Home Medications ?Medication ?Instructions ?Recorded ?Last Taken ?Type [id number] PO 05/06/25 Unknown His tory aspirin 81mg q day 05/06/25 05/05/25 History insulin NPH isoph U-100 human subcut 05/06/25 Unknown History Allergy/AdvReac Type Severity Reaction Status Date / Time amoxicillin Allergy Intermediate rash Verified 05/14/25 11:51 azithromycin (From z pack) Allergy Intermediate rash Verified 05/14/25 11:51 Social History Smoking Status: Former smoker History Elective abortions Hx Para 0 Spontaneous abortions Hx # Term Pregnancies Ectopic pregnancies Hx # Pregnancies Multiple births # of living children ROS Eyes Eyes: Denies blurry vision, change in vision or spots in vision ENT HEENT: Denies dizziness or headache(s) Cardiovascular Cardiovascular: Denies abdominal pain, chest pain or dyspnea Respiratory/Chest Respiratory/Chest: Denies cough, dyspnea, shortness of breath at rest or shortness of breath with exertion Gastrointestinal Gastrointestinal: Denies abdominal pain, diarrhea or vomiting Genitourinary Genitourinary: Denies change in urinary stream, difficulty urinating or dysuria Musculoskeletal Musculoskeletal: Reports none Integumentary Integumentary: Denies rash Neurologic Neurologic: Denies dizziness, headache(s), memory loss or weakness Psychiatric Psychiatric: Reports none Vital Signs Vital Signs Vital Signs: Weight Weight: 240 lb 4.862 oz Body Mass Index (BMI) 41.2 Physical Exam Const alert, oriented x3 and no apparent distress General Appearance: cooperative Orientation / Consciousness: awake Exam Limitations: no limitations HEENT normocephalic Head and Scalp: normal to inspection Eyes General Eye: normal appearance of both eyes Neck full ROM and no lymphadenopathy Lymph Lymphatic: no lymphadenopathy noted Chest inspection of chest normal Resp normal respiratory effort, normal air movement and clear to auscultation bilaterally Effort and Inspection: able to speak in complete sentences and symmetric chest movement Cardio regular rate and regular rhythm GI normal to inspection, nondistended, normoactive bowel sounds Manual OB Exam: presentation cephalic Back/Spine normal ROM Extremity full ROM and no calf tenderness Skin no rashes or lesions noted General Skin Exam: no breakdown Neuro oriented x3 and CN's II-XII intact bilaterally Psych mental status grossly normal and thought process normal Labs Labs Labs: Blood Type Pending Antibody Screen Pending Hct 34.1 % (37-47) L Hgb 11.6 g/dL (12.0-15.0) L Syphilis Total Ab Nonreactive (Nonreactive) Assessment & Plan (1) Gestational hypertension: (2) GDM, class A2: (3) 37 weeks gestation of : (4) Marginal insertion of umbilical cord: (5) Encounter for induction of labor: (6) Obesity affecting : (7) Rubella non-immune status, antepartum: PLAN: Plan Admit to labor and delivery PIH labs- baseline GBS negative CE /-4 Cytotec 25 mcg PO every 4 hours x 6 doses total Noland bulb placed without difficulty and filled with 30 cc N/S BS- 79 Dr. Colin notified of A&P and will be assuming management
[2025-05-24 19:54] VITALS: BP 137/92; PULSE 89
[2025-05-24 19:56] VITALS: TEMP 37.7
[2025-05-24 20:09] LABS: Creatinine, Urine (random) 16.40 mg/dL (28.00-217.00); Protein, Urine (Random) < 6.0 mg/dL (0.0-12.0); Protein:Creat Ratio 154 mg/g CRE (0-200)
[2025-05-24 20:10] LABS: AST(SGOT) 19 U/L (<=31); Alanine Aminotransfer ALT/SGPT 14 U/L (<=34); Estimated Creatinine Clearance 172.66 ml/min (50-250); Uric Acid 4.4 mg/dL (2.6-6.0)
[2025-05-24 20:17] LABS: Syphilis Antibodies Nonreactive (Nonreactive)
[2025-05-24] MEDS: 0.9% Normal Saline Single 100 ML IV.SOLN. INTRA-UTER (20:25)
[2025-05-24 22:43] VITALS: BMI 20250824.0; BMI 2230.0
[2025-05-25] VITALS (54 sets, daily range): BP systolic 111–176; BP diastolic 64–107; PULSE 76–180; RESP 14–18; TEMP 36–37.4; O2SAT 81–100; BMI 1330.0; BMI 20250825.0; BMI 2153.0
[2025-05-25] MEDS: Lactated Ringers 1,000 ML 50 ML IV (06:25)
[2025-05-25] MEDS: Oxytocin 15 Units/NS 250ml 15 UNITS/250 ML IV.SOLN 2 UNITS IV (06:25)
--- NOTE | 2025-05-25 08:04 | PCM.PN.CNM ---
Subjective Subjective Patient seen at bedside. Feeling some mild contractions. Able to rest. Objective Data Objective Data Vital Signs: Vital Signs Temp Pulse Resp BP Pulse Ox 97.2 F L 100 16 120/73 99 05/25/25 07:31 05/25/25 07:26 05/25/25 05:10 05/25/25 07:26 05/25/25 06:30 Weight: 240 lb 4.862 oz Body Mass Index (BMI) 41.2 Intake & Output: Intake and Output for Last 24 Hours 05/23/25 05/24/25 05/25/25 23:59 23:59 23:59 Intake Total 2.17 / 2.17 Balance 2.17 / 2.17 Lab / Micro Data 05/24/25 19:30 05/24/25 19:30 Labs: Laboratory Results - last 24 hr 05/24/25 19:30: WBC 10.4, RBC 3.86 L, Hgb 11.6 L, Hct 34.1 L, MCV 88.3, MCH 30.1, MCHC 34.0, RDW Std Deviation 42.2, RDW Coeff of Gwen 13.1, Plt Count 269, MPV 11.0, Immature Gran % (Auto) 0.300, Neut % (Auto) 66.7, Lymph % (Auto) 23.5, [place] % (Auto) 8.8, Eos % (Auto) 0.5, Baso % (Auto) 0.2, Absolute Neuts (auto) 6.9, Absolute Lymphs (auto) 2.44, Nucleated RBC % 0, Creatinine 0.58 L, Estim Creat Clear Calc 172.66, Est GFR (MDRD) Non-Af 126, Uric Acid 4.4, AST 19, ALT 14, U Random Total Protein < 6.0, Urine Creatinine 16.40 L, Protein/Creatinin Ratio 154, Syphilis Total Ab Nonreactive, Blood Type O POSITIVE, Antibody Screen NEGATIVE 05/24/25 19:51: POC Glucose 79 05/24/25 21:00: POC Glucose 71 L 05/25/25 00:55: POC Glucose 82 05/25/25 05:04: POC Glucose 77 Assessment & Plan (1) Rubella non-immune status, antepartum: (2) Obesity affecting : (3) Encounter for induction of labor: (4) Marginal insertion of umbilical cord: (5) 37 weeks gestation of : (6) Gestational hypertension: (7) 35 weeks gestation of : (8) GDM, class A2: PLAN: Plan CE 4.5/70/-2 AROM for clear fluid IUPC and FSE placed due to difficulty monitoring Pitocin at 4 mu/min IV- continue to increase per policy Pain medication/epidural when indicated Dr. Merdano updated and will be assuming managment
[2025-05-25] MEDS: Lactated Ringers 1,000 ML 999 ML IV ×2 (09:32→21:29)
[2025-05-25] MEDS: fentaNYL-bupivacaine (epidural) 100 ML BAG EPIDURAL ×3 (11:00→19:27)
[2025-05-25] MEDS: Lactated Ringers 1,000 ML 200 ML IV ×2 (14:54→19:57)
--- NOTE | 2025-05-25 22:22 | PCM.PN.BLA ---
Progress Note At bedside to check on patient. She is comfortable with epidural. Her only complaint is fatigue. Assessment & Plan Assessment/Plan (1) Rubella non-immune status, antepartum: (2) Obesity affecting : (3) Encounter for induction of labor: PLAN: Cervix 4/60/-2, caput noted. Patient has been 4 cm dilated for about 15 hours. She has been ruptured and on Pitocin with adequate contractions for about 15 hours. Discussed r/b/a section for failure to progress in labor. Shared decision making was used with the patient. The patient requests to proceed with a section. Consent obtained. She reports hives from Amoxicillin and Azithromycin. Will order pre op Gent and Clinda, as well as TXA. (4) Marginal insertion of umbilical cord: (5) 37 weeks gestation of : (6) Gestational hypertension: (7) GDM, class A2:
[2025-05-25] MEDS: NORMAL SALINE IV (22:33)
[2025-05-25] MEDS: Gentamicin 800 MG/20 ML Vial 270 MG IV (22:37)
[2025-05-25] MEDS: fentaNYL 100 MCG/2 ML Ampul EPIDURAL (22:40)
[2025-05-25] MEDS: Lidocaine 2% (5ml sdv) 5 ML VIAL.MPF 10 ML EPIDURAL (22:41)
[2025-05-25] MEDS: TRANEXAMIC ACID 1,000 MG/10 ML ML 1000 MG IV (22:47)
[2025-05-25] MEDS: morphine PF (epidural) 5 MG/10 ML Vial 2 MG IV (23:30)
--- NOTE | 2025-05-25 23:49 | PCM.POST.ANE ---
Anesthesia: Postop Eval I Current Vital Signs Temperature: 97 F Pulse Rate: 98 Blood Pressure: 144/89 Respiratory Rate: 16 Pulse Ox: 98 Oxygen Delivery Method: Room Air Assessment Airway patent: Yes Spontaneous unlabored respirations: Yes Mental status: Awake and Calm nausea: No Vomiting: No Anesthesia Complication: No Fluid Hydration Crystalloid volume administer (ml): 1,000 Total IV fluid infused: 1,000 Progress Note Anesthesia document: Postop Eval 1 completed: Yes
--- NOTE | 2025-05-25 23:55 | POSTOPAN2_ITS ---
Anesthesia Postop Eval I Sum Postop Eval Completion status Anesthesia document: Postop Eval 1 completed: Yes Anesthesia Postop Eval I Summary Anesthesia Postop Eval I Summary: Anesthesia Postop Eval I: Assessment Summary Airway patent Yes 05/25/25 23:52 MEDICARE SALES [email or web address] Spontaneous unlabored Yes 05/25/25 23:52 MEDICARE SALES REPRESENTATIVE.MDOT respirations Mental status Awake,Calm 05/25/25 23:52 MEDICARE SALES REPRESENTATIVE.MDOT nausea No 05/25/25 23:52 MEDICARE SALES REPRESENTATIVE.MDOT Vomiting No 05/25/25 23:52 MEDICARE SALES REPRESENTATIVE.MDOT Anesthesia Postop Eval I: Fluid Summary Crystalloid volume administer 1,000 05/25/25 23:52 MEDICARE SALES REPRESENTATIVE.MDOT (ml) Colloids volume administered ( ml) Blood Product volume administered (ml) Total IV fluid infused 1,000 05/25/25 23:52 MEDICARE SALES REPRESENTATIVE.[email or web address] Anesthesia Postop Eval I: Summary Notes Anesthesia Complication No 05/25/25 23:52 MEDICARE SALES REPRESENTATIVE.[email or web address] Anesthesia Complication Comment: Post-operative progress note Anesthesia: Postop Eval II Evaluation Mental status: Awake and Calm Pain Level: 0 nausea: No Vomiting: No Complications Anesthesia Complication: No
--- NOTE | 2025-05-25 23:55 | PCM.POSTANE2 ---
Anesthesia Postop Eval I Sum Postop Eval Completion status Anesthesia document: Postop Eval 1 completed: Yes Anesthesia Postop Eval I Summary Anesthesia Postop Eval I Summary: Anesthesia Postop Eval I: Assessment Summary Airway patent Yes 05/25/25 23:52 [email or web address] Spontaneous unlabored Yes 05/25/25 23:52 [email or web address] [email or web address] respirations Mental status Awake,Calm 05/25/25 23:52 [email or web address] [email or web address] nausea No 05/25/25 23:52 [email or web address] [email or web address] Vomiting No 05/25/25 23:52 [email or web address] [email or web address] Anesthesia Postop Eval I: Fluid Summary Crystalloid volume administer 1,000 05/25/25 23:52 [email or web address] (ml) Colloids volume administered ( ml) Blood Product volume administered (ml) Total IV fluid infused 1,000 05/25/25 23:52 LAUNCH [email or web address] Anesthesia Postop Eval I: Summary Notes Anesthesia Complication No 05/25/25 23:52 [email or web address] [email or web address] Anesthesia Complication Comment: Post-operative progress note Anesthesia: Postop Eval II Evaluation Mental status: Awake and Calm Pain Level: 0 nausea: No Vomiting: No Complications Anesthesia Complication: No
--- NOTE | 2025-05-25 23:55 | PCM.OPRPT ---
Problems Associated Problem List Diagnoses (1) Rubella non-immune status, antepartum: (2) Obesity affecting : (3) Encounter for induction of labor: (4) Marginal insertion of umbilical cord: (5) 37 weeks gestation of : (6) Gestational hypertension: (7) GDM, class A2: Operative Report (Standard) Operative Information Date of Procedure: 05/25/25 Pre-Operative Diagnosis: 37 week gestation, A2GDM, gHTN, failed induction Post-Operative Diagnosis: As above Surgery/Procedure Performed: PLTCS via pfannenstiel incision saw straightener: Yes Insurance Application Investigator: Evans CARREON Tasks completed by certified first assistant: Retracting Type of Anesthesia: Epidural Procedure Start Time: 22:52 Procedure Stop Time: 23:45 Select all DRAINS/GRAFTS/IMPLANTS that apply: None Estimated Blood Loss: 900 mL Fluids Replaced: 1000 mL Specimen collected: No Description of surgery: Indications: Patient had an IOL at 37 weeks for A2GDM, gHTN and obesity. Induction was started with Cytotec and an intracervical kent. She was then ruptured and on pitocin for about 15 hours, and remained 4 cm during that time. Procedure: Patient was taken to the operating room where epidural anesthesia was found to be adequate. She was prepped and draped in the dorsal supine position with a leftward tilt. A Pfannenstiel skin incision was made using a scalpel and this was carried down to the underlying layer of fascia. The fascia was incised in the midline. The fascial incision was extended laterally using Rosario scissors. An area on the left rectus muscle was bleeding and made hemostatic with Bovie cautery and a single figure of eight suture of 3-0 Vicrly. The fascia was tented off the rectus muscles using Fozia clamps and dissected off the rectus with a combination of sharp and blunt dissection both cephalad and caudad. The rectus muscles were in the midline. The peritoneum was entered bluntly with good visualization of the bladder. The peritoneal incision was extended with lateral traction. A bladder blade was inserted. A low transverse incision was made on the uterus with a scalpel. The uterine incision was extended with cephalad and caudad traction. The head of the was flexed and delivered through the hysterotomy followed by the shoulders and body without any traction, force, or delay. The cord was clamped and cut immediately. A vigorous viable male was handed off to the awaiting nursery staff. The placenta delivered with fundal massage and was noted to be normal-appearing and intact. The uterus was exteriorized. The uterus was cleared of all clot and debris. The uterus was boggy despite Pitocin, and bleeding was noted. Hemabate was given. The uterus then firmed up after the Hemabate and with uterine massage. The hysterotomy was closed with 1-0 Vicryl in a running locked fashion. An additional slnsai-do-rzzbl suture was placed for hemostasis at the left angle. Bilateral adnexa were normal-appearing. Hemostasis was noted. The uterus was placed back into the abdomen. Hemostasis was again confirmed. Hemablast was placed over the hysterotomy and lower uterine segment. The subfascial space was inspected and noted to be hemostatic. The fascia was closed with STRATAFIX in a running fashion. The subcutaneous space was irrigated and made hemostatic with the Bovie cautery. The subcutaneous space was reapproximated in 2 layers using 3-0 Vicryl. The skin was closed with 4 Monocryl in a subcuticular fashion. A dressing was placed. Instrument, sharp, sponge counts correct were correct x 2 the patient was taken to the recovery in stable condition. Surgical Findings: VFI Apgars 8, 6, 9 Clear fluid Normal appearing uterus and bilateral adnexa Normal appearing placenta Complications Complications: No Admit VTE Documentation VTE Present on Admission: No VTE Mechan Device Prophylaxis: SCD's
[2025-05-26] VITALS (16 sets, daily range): BP systolic 109–141; BP diastolic 65–94; PULSE 88–103; RESP 11–23; TEMP 36.5–37.1; O2SAT 89–100
[2025-05-26] MEDS: Oxytocin 15 Units/NS 250ml 15 UNITS/250 ML IV.SOLN 83 UNITS IV (00:07)
[2025-05-26] MEDS: Ketorolac 30 MG/ML Syringe IV ×4 (00:49→18:15)
[2025-05-26] MEDS: 0.9% Saline Lock 10 ML Syringe IV ×3 (06:28→18:16)
[2025-05-26 07:45] LABS: Hematocrit 28.8 % (37-47); Hemoglobin 10.2 g/dL (12.0-15.0); Mean Corp Hgb Conc 35.4 g/dL (32-36); Mean Corpuscular Volume 87.8 fL (81-99); Mean Platelet Vol. 10.6 fl (6.2-12.0); Platelet Count 234 K/mm3 (150-450); RBC Distribution Width CV 13.1 % (11.6-14.6); RBC Distribution Width SD 41.6 fl (35.1-43.9); Red Blood Count 3.28 M/mm3 (4.2-5.4); White Blood Count 24.1 K/mm3 (4.4-11.0)
--- NOTE | 2025-05-26 08:51 | PCM.PN.OB ---
Subjective Subjective Pain controlled. Objective Data Objective Data Vital Signs: Vital Signs Temp Pulse Resp BP Pulse Ox O2 Del Method 97.8 F 98 18 109/67 98 Room Air 05/26/25 08:15 05/26/25 08:15 05/26/25 08:15 05/26/25 08:15 05/26/25 08:15 05/26/25 08:15 Oxygen Delivery Method Room Air Weight: 240 lb 4.862 oz Body Mass Index (BMI) 41.2 Intake & Output: Intake and Output for Last 24 Hours 05/24/25 05/25/25 05/26/25 23:59 23:59 23:59 Intake Total 3829.28 / 3829.28 1190 / 1190 Output Total 4500 / 4500 500 / 500 Balance -670.72 / -670.72 690 / 690 Lab / Micro Data 05/26/25 07:35 05/24/25 19:30 Labs: Laboratory Results - last 24 hr 05/25/25 09:27: POC Glucose 142 H 05/25/25 10:58: POC Glucose 66 L 05/25/25 13:46: POC Glucose 61 L 05/25/25 15:25: POC Glucose 93 05/25/25 18:25: POC Glucose 72 L 05/25/25 19:31: POC Glucose 70 L 05/25/25 21:03: POC Glucose 88 05/26/25 01:01: POC Glucose 114 H 05/26/25 07:35: WBC 24.1 H, RBC 3.28 L, Hgb 10.2 L, Hct 28.8 L, MCV 87.8, MCH 31.1, MCHC 35.4, RDW Std Deviation 41.6, RDW Coeff of Gwen 13.1, Plt Count 234, MPV 10.6 Physical Exam Const alert, oriented x3 and no apparent distress HEENT normocephalic GI soft to palpation, non-tender and non-distended GI Narrative: fundus firm, mid & below umbilicus Incision - bandage c/d/i Extremity normal to inspection and no calf tenderness Assessment & Plan (1) Gestational hypertension: QUALIFIERS: Trimester: third trimester Qualified Code(s): O13.3 - Gestational [-induced] hypertension without significant proteinuria, third trimester COMMENT: POD#1 (2) 37 weeks gestation of : (3) Delivery by section: (4) GDM, class A2: PLAN: Plan Heme - HDS, CBC reviwed BP's normal overnight & will monitor ID - AF, no signs infection GI/ - no issues Routine PP care
[2025-05-26] MEDS: Senna/Docusate Sodium 1 Tablet PO (10:25)
--- NOTE | 2025-05-26 23:22 | NURSING ---
This RN in room to speak with patient and support person on provider recommendation of staying until morning approx 0800 when provider is in to round and assess. This RN relayed to patient that d/t GHTN diagnosis, KJ recommends staying through morning to monitor blood pressures to ensure they do not creep up and if patient leaves too soon, there is risk of being readmitted. Patient stating if my baby is leaving, I am leaving. I am not staying here if he isn't here with me. Patient verbalized understanding and provided emotional support.
--- NOTE | 2025-06-30 17:48 | PCM.DC.SUM ---
Providers Date of Admission: 05/24/25 Primary Care Physician: Yanet Primary Care Phys Reason For Visit: Diagnosis Discharge Diagnosis (1) Gestational hypertension: Status: Acute Code(s): O13.9 - Gestational [-induced] hypertension without significant proteinuria, unspecified trimester Qualifiers: Trimester: third trimester Qualified Code(s): O13.3 - Gestational [-induced] hypertension without significant proteinuria, third trimester (2) 37 weeks gestation of : Status: Acute Code(s): Z3A.37 - 37 weeks gestation of (3) Delivery by section: Status: Acute (4) GDM, class A2: Status: Acute Code(s): O24.419 - Gestational diabetes mellitus in , unspecified control Plan Heme - HDS, CBC reviwed BP's normal overnight & will monitor ID - AF, no signs infection GI/ - no issues Routine PP care Hospital Course Operations section Summary of Care Provided Minutes Spent on Discharge: 10 Weight / BMI Weight Weight: 240 lb 4.862 oz Body Mass Index (BMI) 41.2 ABG / Lab / Microbiology Data 05/26/25 07:35 05/24/25 19:30 D/C Instructions May resume sexual activity in: 6 weeks Weight Bearing Status: Weight bearing as tolerated Call your doctor if your incision/area has: Continuous Slow Oozing, Sudden Increased Bleeding, Increased Pain/ Swelling, Increased Redness, Foul Smelling Discharge and Swelling at the incision site Call your doctor if you observe: Fever of 101 or Higher, Coldness, Increased Pain, Change in Color, Inability to urinate, Inability to have a bowel movement, Using more than 1 pad per hour, Shortness of breath, Dizziness, Fainting spells, Chest pain, Increased palpitations (irregular heartbeat), Calf discomfort and Uncontrolled pain Suture Line Care: Avoid Pulling/Pushing and Avoid Pinching/Bending Remove Dressing in: 1 week Cleanse incision/area with: Soap & Water DC O2, CPAP, BIPAP Needs Home O2 Discharge instructions: No Please Follow Up With: Rosy Colin MD When: Follow up in 2 and 6 weeks for visits. Meaningful Use Info Meaningful Use Meaningful Use Diagnoses (Choose all that apply): None applicable Discharge Plan Admission Admit Date/Time: 05/24/25 19:08 Primary Reason for Your Visit: section Attending Provider: Nicolette Bobo Primary Care Provider: Care Physician,No Primary Instructions Patient Instructions: After a Delivery (WP) Discharge Orders/Prescriptions Prescriptions: Discontinued aspirin 81mg q day 81 mg tablet [ Multi-DHA(with vit K)] PO insulin NPH isoph U-100 human [Humulin N NPH Insulin KwikPen] subcut Referrals / Follow Up: Care Physician,No Primary [Primary Care Provider, Medical] Disposition Disposition (needs filled in before D/C Order can be placed): Home, Self Care
== END 2025-05-27 00:48 | disposition home or self-care (01) | DRG 788 ==
PROVIDERS: Obstetrics & Gynecology; Admitting Provider Advanced Practice Midwife; Referring Provider Advanced Practice Midwife; Visit Provider Advanced Practice Midwife
DX: O24.424 Gestational diabetes mellitus in childbirth, insulin controlled (principal); O99.214 Obesity complicating childbirth; E28.2 Polycystic ovarian syndrome; O61.0 Failed medical induction of labor; O13.4 Gestational [pregnancy-induced] hypertension without significant proteinuria, complicating childbirth; O99.284 Endocrine, nutritional and metabolic diseases complicating childbirth; Z3A.37 37 weeks gestation of pregnancy; Z37.0 Single live birth; Z79.82 Long term (current) use of aspirin; Z88.1 Allergy status to other antibiotic agents; Z88.0 Allergy status to penicillin; Z87.891 Personal history of nicotine dependence; Z28.39 Other underimmunization status
CPT/HCPCS: 36415; 59025; 59050; 82565; 82570; 82962; 84156; 84450; 84460; 84550; 85025; 85027; 86780; 86850; 86900; 86901; 99221; A4216; G0378; J2405